=== PATIENT | female | born 1945 | race Caucasian/White ===

== ENCOUNTER → 2018-03-13 08:00 | Outpatient (CLI) | payer MEDICARE, OTHER, SELFPAY | PROVIDERS: Visit Provider Nurse Practitioner Gerontology | DX: N28.9 Disorder of kidney and ureter, unspecified (principal); N13.5 Crossing vessel and stricture of ureter without hydronephrosis; J44.9 Chronic obstructive pulmonary disease, unspecified; F17.210 Nicotine dependence, cigarettes, uncomplicated; I10 Essential (primary) hypertension | CPT/HCPCS: 81003; 99204 ==

== ENCOUNTER 2018-04-09 01:31 | Outpatient (CLI) | payer MEDICARE, OTHER, SELFPAY ==
[2018-04-09 10:58] LABS: Albumin 3.9 g/dL (3.4-5.0); Anion Gap 5.4 mmol/L (3-11); BUN 16 mg/dL (7-18); CO2 32.6 mmol/L (21.0-32.0); CREATININE 1.09 mg/dL (0.55-1.02); Calcium 9.9 mg/dL (8.5-10.1); Chloride 102 mmol/L (98-107); Estimated GFR 49.48 (mL/min/1.73m2); Glucose 108 mg/dL (70-100); PHOSPHORUS 3.1 mg/dL (2.6-4.7); Potassium 4.3 mmol/L (3.5-5.1); Sodium 140 mmol/L (136-145)
[2018-04-09 15:06] LABS: ALT 10 U/L (12-78); AST 20 U/L (15-37); Albumin 3.9 g/dL (3.4-5.0); Alkaline Phosphatase 79 U/L (46-116); Anion Gap 9.5 mmol/L (3-11); BUN 16 mg/dL (7-18); Bilirubin, Total 1.2 mg/dL (0.2-1.0); CO2 29.5 mmol/L (21.0-32.0); CREATININE 1.08 mg/dL (0.55-1.02); Calcium 9.6 mg/dL (8.5-10.1); Chloride 103 mmol/L (98-107); Estimated GFR 50.01 (mL/min/1.73m2); Glucose 111 mg/dL (70-100); Potassium 4.3 mmol/L (3.5-5.1); Sodium 142 mmol/L (136-145); Total Protein 7.2 g/dL (6.4-8.2)
== END 2018-04-09 01:51 ==
PROVIDERS: Visit Provider Nurse Practitioner Gerontology
DX: I10 Essential (primary) hypertension (principal); N28.9 Disorder of kidney and ureter, unspecified
CPT/HCPCS: 36415; 80053; 80069

== ENCOUNTER → 2018-04-16 10:42 | Outpatient (BNVA) | payer MEDICARE, OTHER, SELFPAY | PROVIDERS: Visit Provider Nurse Practitioner Gerontology | DX: N13.5 Crossing vessel and stricture of ureter without hydronephrosis (principal); J44.9 Chronic obstructive pulmonary disease, unspecified; F17.210 Nicotine dependence, cigarettes, uncomplicated; I10 Essential (primary) hypertension | CPT/HCPCS: 99213 ==

== ENCOUNTER 2018-08-17 01:12 | Outpatient (CLI) | payer MEDICARE, OTHER, SELFPAY ==
[2018-08-17 13:06] LABS: CREATININE 0.99 mg/dL (0.55-1.02); Estimated GFR 55.29 (mL/min/1.73m2)
== END 2018-08-17 01:32 ==
DX: R91.1 Solitary pulmonary nodule (principal); Z13.89 Encounter for screening for other disorder
CPT/HCPCS: 36415; 82565

== ENCOUNTER 2018-08-20 00:28 | Outpatient (CLI) | payer MEDICARE, OTHER, SELFPAY ==
[2018-08-20] MEDS: Omnipaque 350 MG/ML 100 ML BTL IJ (14:08)
--- NOTE | 2018-08-20 14:21 | DI.CT_ITS ---
SYMPTOM/DIAGNOSIS: F/U RT LUNG NODULE, R91.[address]: Comparison is made with exams from [id number]. A post contrast exam was performed. The two nodules at the left lung base measuring 5 and 10 mm. are unchanged over time. There has been interval increase in size of previously noted area of spiculation posteriorly in the right upper lobe. There is an adjacent area of spiculation which also appears to have increased in size. There is a new area of spiculation seen in the anterior lingula measuring 9 mm. in diameter. There are underlying emphysematous changes. No pleural or pericardial effusions are seen. There is a 12 mm. precarinal lymph node increasing slightly from the previous exam. There is minimal hilar sumit tissue. Large right renal cyst and small left renal cysts are noted. Patient is status post cholecystectomy. IMPRESSION: Interval increase in size of areas of spiculation at the posterior right upper lobe. New spiculated area in the anterior lingula. Two stable nodules are seen at the left lung base. Biopsy should be considered.
== END 2018-08-20 00:48 ==
DX: R91.1 Solitary pulmonary nodule (principal); R91.8 Other nonspecific abnormal finding of lung field
CPT/HCPCS: 71260; J3490

== ENCOUNTER 2018-10-05 11:13 | Inpatient (IN) | payer MEDICARE, OTHER, SELFPAY ==
[2018-10-05] VITALS (70 sets, daily range): BP systolic 94–131; BP diastolic 44–89; PULSE 108–157; RESP 2–47; TEMP 37.2–37.8; O2SAT 84–100
--- NOTE | 2018-10-05 11:26 | ED.GENADUL_ITS ---
Discharge Plan Disposition Patient Disposition: [facility] INPATIENT Discharge Details Chief Complaint: SOB Clinical Impression: Acute exacerbation of chronic obstructive pulmonary disease (COPD) Reason For Visit: COPD EXACERBATION Admit Date/Time: 10/05/18 17:50 Admit Provider: John Talbert Attending Provider: John Talbert Primary Care Provider: Sue Rodney ED Provider: Juvenal Robledo Discharge Data Discharge Date/Time-TO BE ENTERED AT DEPARTURE: 10/05/18 19:09 Medical Decision Making Medical Records 73-year-old female with a history of COPD, ongoing tobacco use, presents with 10+ days of cough, congestion, production of yellow sputum with increased difficulty breathing over 2 days time. She was initially seen in Dr. Alves's office and referred to the emergency department given her work of breathing and mild hypoxia of 87% on room air. Differential diagnosis includes viral syndrome, COPD exacerbation, pneumonia or bronchitis. She does appear mildly dehydrated She is given fluid bolus, inhaled duoneb, steroids, and referred for CXR, EKG and lab workup. Influenza testing negative. CXR: Underlying emphysematous changes. Right upper lobe mass as was demonstrated on prior chest CT. There is no evidence of pneumonia. Labs: Reveal normal white blood cell count of 5, hematocrit 43, platelets 122. Chemistries reveal a BUN of 23, creatinine 1.1, discrete anion gap of 15 with a bicarb of 23, Cl 97. Patient given DuoNeb updraft x4, parenteral steroids, 2 L of IV fluid. Observed over 4+ hrs. She has persistent resting tachycardia as well as room air hypoxia of 87%. Therefore, d-dimer added to labs and elevated just above age-adjusted cut off and patient referred for CT to rule out PE. CT no mild masses in left lower lobe which represent atelectasis or pneumonia. There are stable nodules. No evidence of PE. Patient's anion gap of 15 is begun to close on repeat laboratories, lactic acid level of 2.4. Blood cultures obtained, antibiotics initiated. Case discussed with Dr Talbert and patient to be admitted to the medicine service. Lab Data Lab results reviewed: Yes I reviewed the patient's lab results. Laboratory Results - last 24 hr 10/05/18 10/05/18 10/05/18 12:15 12:15 15:15 WBC 5.62 RBC 4.95 Hgb 14.3 Hct 43.0 MCV 86.9 MCH 28.9 MCHC 33.3 RDW 12.8 Plt Count 122 L MPV 10.9 Immature Gran % 0.4 Neutrophils % 76.3 Lymphocytes % 7.8 Monocytes % 14.9 Eosinophils % 0.2 Basophils % 0.4 Absolute Neutrophils 4.29 Absolute Lymphocytes 0.44 L Absolute Monocytes 0.84 H Absolute Eosinophils 0.01 Absolute Basophils 0.02 D-Dimer 736 H Sodium 136 Potassium 4.0 Chloride 97 L Carbon Dioxide 23.4 Anion Gap 15.6 H BUN 23 H Creatinine 1.14 H Estimated GFR/1.73 m2 46.99 Glucose 131 H Calcium 9.6 Magnesium 1.7 L Total Bilirubin 1.3 H AST 35 ALT 13 Alkaline Phosphatase 83 Troponin I < 0.02 Total Protein 7.7 Albumin 3.5 ECG Data Attestation: I personally reviewed and interpreted this ECG (s) as follows: Interpretation: Normal sinus tachycardia with a rate of 120, QRS is narrow, no ST segment elevation HPI General Mode of arrival: ambulatory . Date/Time Provider Initiated Documentation: 10/05/18 11:18 . Limitations to Documentation: no limitations . Information obtained by: patient . History of Present Illness 73 year old F presents to the emergency department with the chief complaint of Cough and shortness of breath, referred by Dr. Alves, described as moderate, Quality is described as constant, and is localized to the chest. Patient reports no radiation. Patient started experiencing this day(s) and it has been constant. No relieving factors improve symptom(s), Other factors that worsen symptoms (Smoking) . Patient notes cough and shortness of breath. Patient did receive the following treatments prior to arrival, other (Home inhalers) Related Data Home Medications Medication Instructions Recorded Confirmed acetaminophen [Tylenol Extra 1,000 mg PO PRN tab-cap 12/24/12 10/05/18 Strength] inhalational spacing device [Space #1 06/09/16 10/05/18 Chamber Plus] tiotropium bromide [Spiriva 18 mcg INHALATION DAILY #1 tab-cap 12/11/17 10/05/18 Handihaler] metoprolol succinate [Toprol Xl] 1.5 tab PO DAILY #135 tab-cap 12/22/17 10/05/18 hydrochlorothiazide 25 mg tablet 25 mg PO DAILY #90 tab-cap 06/28/18 10/05/18 clopidogrel 75 mg tablet 75 mg PO DAILY #90 tab-cap 08/23/18 10/05/18 albuterol sulfate HFA 90 2 puff INHALATION Q4H PRN #2 08/28/18 10/05/18 mcg/actuation aerosol inhaler inhaler fluticasone furoate-vilanterol 1 inh INHALATION DAILY 10/05/18 10/05/18 [Breo Ellipta] Previous Rx's Medication Instructions Recorded tiotropium bromide [Spiriva 18 mcg INHALATION DAILY #1 tab-cap 12/11/17 Handihaler] metoprolol succinate [Toprol Xl] 1.5 tab PO DAILY #135 tab-cap 12/22/17 hydrochlorothiazide 25 mg tablet 25 mg PO DAILY #90 tab-cap 06/28/18 clopidogrel 75 mg tablet 75 mg PO DAILY #90 tab-cap 08/23/18 albuterol sulfate HFA 90 2 puff INHALATION Q4H PRN #2 08/28/18 mcg/actuation aerosol inhaler inhaler Allergies Allergy/AdvReac Type Severity Reaction Status Date / Time Tetanus Vaccines and Toxoid Allergy Mild LOCAL Verified 10/05/18 10:26 SWELLING Review of Systems Review of Systems Patient's is sick with a pneumonia. She has otherwise recently been well. Denies chest pain. 8 systems reviewed and otherwise neg [facility] Medical History COPD (chronic obstructive pulmonary disease) Carotid artery stenosis Diverticulosis Essential hypertension Hyperlipidemia PVD (peripheral vascular disease) Tobacco dependence Surgical History Biopsy of breast Cholecystectomy (~01/2009) Colonoscopy - MAC (03/07/16) Hysterectomy, Laproscopic (~1974) Open Carpal Tunnel release Surgery excision CIS R buttock 2008 Family History Mother Neoplasm Sister Neoplasm Father No problems noted. Sister No problems noted. Sister No problems noted. Brother Neoplasm Daughter No problems noted. Daughter No problems noted. Son No problems noted. Brother No problems noted. Social History Smoking/Tobacco Use Status: Current every day Alcohol Intake: never Drug use: Never Substance use type: does not use Do you feel safe at home: Yes Do you feel safe in your relationship?: Yes Exam Narrative Exam Narrative: GEN: awake, alert, oriented 3. Pleasant, well groomed, interactive. Increased work of breathing HEAD: Normocephalic, atraumatic ENT: Mucous membranes moist, oropharynx unremarkable, External ear exam unremarkable EYES: PERRL, EOMI NECK: Full ROM, no THANIA, no menigismus CHEST/RESP: Nontender, bilateral diminished breath sounds with end expiratory wheeze CARDIOVASCULAR: Tachycardia, no murmur, rub kofi. 2+ Rad pulse bilateral ABDOMEN: Soft, nontender, no mass. +Bowel sounds EXT: Full ROM, no edema, no rash Neuro: Grossly normal neurologic exam, conversant, interactive. Psych: Speech fluent, thoughts congruent, affect normal
[2018-10-05 12:33] LABS: Abs Immature Grans 0.02 k/cumm (0.0-0.09); Absolute Basophil Count 0.02 k/cumm (0.0-0.2); Absolute Eosinophil Count 0.01 k/cumm (0.0-0.7); Absolute Lymphocyte Count 0.44 k/cumm (1.2-3.4); Absolute Monocyte Count 0.84 k/cumm (0.11-0.7); Absolute Neutrophil Count 4.29 k/cumm (1.2-6.7); Basophils % 0.4; Eosinophils % 0.2; HGB 14.3 g/dL (12.0-15.5); Immature Grans % 0.4; Lymphocytes % 7.8; Mean Corp. HGB Concentration 33.3 g/dL (32.0-36.0); Mean Corpuscular Hemoglobin 28.9 pg (27.0-33.0); Mean Corpuscular Volume 86.9 fL (80-95); Mean Platelet Volume 10.9 fL (8.0-11.0); Monocytes % 14.9; Neutrophils % 76.3; Platelet Count 122 x1000/uL (130-400); RBC 4.95 m/cumm (4.00-5.20); RBC Distribution Width 12.8 % (11.7-14.6); White Blood Cell Count 5.62 k/cumm (4.4-10.8)
[2018-10-05 12:46] LABS: ALT 13 U/L (12-78); AST 35 U/L (15-37); Albumin 3.5 g/dL (3.4-5.0); Alkaline Phosphatase 83 U/L (46-116); Anion Gap 15.6 mmol/L (3-11); BUN 23 mg/dL (7-18); Bilirubin, Total 1.3 mg/dL (0.2-1.0); CO2 23.4 mmol/L (21.0-32.0); CREATININE 1.14 mg/dL (0.55-1.02); Calcium 9.6 mg/dL (8.5-10.1); Chloride 97 mmol/L (98-107); Estimated GFR 46.99 (mL/min/1.73m2); Glucose 131 mg/dL (70-100); Magnesium 1.7 mg/dL (1.8-2.4); Sodium 136 mmol/L (136-145); Total Protein 7.7 g/dL (6.4-8.2)
[2018-10-05 12:49] LABS: Troponin I < 0.02 ng/mL (0.00-0.06)
[2018-10-05] MEDS: Lactated Ringers 1,000 ML 1000 ML IV ×2 (12:49→14:14)
[2018-10-05] MEDS: Albuterol/Ipratropium 3 ML UPD VIAL UPD ×5 (12:49→23:27)
--- NOTE | 2018-10-05 12:56 | DI.RAD_ITS ---
SYMPTOMS/DIAGNOSIS: SHORTNESS OF BREATH, COUGH PA AND LATERAL CHEST: Comparison is made with [id number]. The heart size is normal. There is calcification at the aortic arch. The lungs are somewhat hyperinflated. There are underlying emphysematous changes throughout. A mass is seen in the right upper lobe which measures 15 mm in diameter. IMPRESSION: Underlying emphysematous changes. Right upper lobe mass as was demonstrated on prior chest CT. There is no evidence of pneumonia.
[2018-10-05] MEDS: Benzonatate 100 MG CAP PO (15:21)
--- NOTE | 2018-10-05 15:23 | NUR.NOTE ---
Addendum entered by Mendez Garrison 10/05/18 18:55: room air trial performed on PT. O2 saturation dropped to 84 within 4 min Original Note: room air trial performed on PT. O2 saturation dropped to 14 within 4 min
[2018-10-05] MEDS: LORazepam 2 MG/ML VIAL 0.5 MG IVP (15:40)
[2018-10-05 15:57] LABS: D-Dimer 736 ng/mlFEU (<500)
--- NOTE | 2018-10-05 15:59 | DI.CT_ITS ---
SYMPTOMS/DIAGNOSIS: ELEVATED D-DIMER, COUGH, HYPOXIA CT ANGIOGRAPHY OF THE CHEST: CT angiography was performed with multi slice acquisition and multi planar and 3D reconstruction. Routine examination was performed. There is atherosclerosis of the thoracic aorta, but no aneurysmal dilatation or dissection is present. There is no evidence of a pulmonary embolus. The heart size is within normal limits. No significant pericardial effusion is seen. Coronary artery calcifications are present. No evidence of right ventricular dysfunction is seen. No significant thoracic adenopathy, pleural effusion or pneumothorax is identified. Emphysematous changes are seen in the lungs. There is a small infiltrate seen in the left lower lobe. The 9 mm nodule in the medial aspect of the right upper lobe appears stable (series 7 image 141). There is a pleural-based nodular opacity seen in the right upper lobe. This may represent atelectasis or pneumonia. Pulmonary nodule cannot be excluded. There is patient motion artifact, particularly notable in the lower chest and upper abdomen. The patient appears to be status post cholecystectomy. There are degenerative changes seen in the spine. IMPRESSION: 1. No evidence of a pulmonary embolus, thoracic aortic dissection or aneurysm. 2. Infiltrates seen in the left lower lobe, which may represent atelectasis or pneumonia. 3. Stable 9 mm nodule in the posterior right upper lobe. 4. Pleural-based opacity in the right upper lobe. This was also present on the prior examination from 08/20/18.
--- NOTE | 2018-10-05 17:09 | DI.VRAD_ITS ---
EXAM: CT Angiography Chest With Contrast EXAM DATE/TIME: 10/05/2018 4:00 PM CLINICAL HISTORY: 73 years old, female; Signs and symptoms; Cough; Patient HX: Cough, hypoxia, elevated ddimer TECHNIQUE: Axial computed tomographic angiography images of the chest with intravenous contrast using CT angiography protocol. Coronal and sagittal reformatted images were created and reviewed. MIP reconstructed images were created and reviewed. COMPARISON: CT Thorax^CHEST W ROUTINE (Adult) 08/20/2018 2:11 PM FINDINGS: Pulmonary arteries: Normal. No pulmonary emboli. Aorta: Normal. No aortic aneurysm. No aortic dissection. Lungs: Moderate panlobular emphysematous changes Mild opacities in the left lower lobe may represent atelectasis or pneumonia. Bronchiectasis Stable spiculated nodule in the posterior right upper lobe Pleural space: Normal. No pneumothorax. No pleural effusion. Heart: Normal. No cardiomegaly. No pericardial effusion. Liver: 9 mm pleural-based nodule in the posterior right upper lobe was present on the prior study. Gallbladder and bile ducts: Status post cholecystectomy Lymph nodes: Unremarkable. No enlarged lymph nodes. Bones/joints: Unremarkable. No acute fracture. Soft tissues: Unremarkable. IMPRESSION: 1. Mild opacities in the left lower lobe may represent atelectasis or pneumonia. 2. 9 mm pleural-based nodule in the posterior right upper lobe was present on the prior study. Dictated and Authenticated by: Sole Sotomayor MD. Ordering:SHERLEY Sanford MD
[2018-10-05] MEDS: Omnipaque 350 MG/ML 100 ML BTL IJ (17:12)
[2018-10-05 17:15] LABS: Lactate-non-spesis 2.4 mmol/l (0.6-1.4)
[2018-10-05 17:21] LABS: Anion Gap 8.9 mmol/L (3-11); BUN 21 mg/dL (7-18); CO2 29.1 mmol/L (21.0-32.0); CREATININE 1.11 mg/dL (0.55-1.02); Calcium 9.2 mg/dL (8.5-10.1); Chloride 99 mmol/L (98-107); Estimated GFR 48.46 (mL/min/1.73m2); Glucose 158 mg/dL (70-100); Potassium 3.6 mmol/L (3.5-5.1); Sodium 137 mmol/L (136-145)
[2018-10-05] MEDS: Normal Saline 1,000 ML 150 ML IV (17:44)
[2018-10-05] MEDS: PIPERACILLIN/TAZO 3.375 GM in Normal Saline 50 ML IVPB (19:04)
[2018-10-05] MEDS: Azithromycin 250 MG TAB 500 MG PO (19:04)
[2018-10-05] MEDS: guaiFENesin 600 MG TABCR 1200 MG PO (20:01)
[2018-10-05] MEDS: Benzonatate 200 MG CAP PO (20:01)
[2018-10-05] MEDS: Atorvastatin 20 MG TAB PO (20:02)
[2018-10-05] MEDS: Normal Saline Flush 10 ML SYR IVP ×3 (20:06→21:37)
[2018-10-05] MEDS: Albuterol 2.5 MG/3 ML INH SOLN VIAL UPD (20:06)
[2018-10-05] MEDS: Normal Saline 1,000 ML 100 ML IV ×2 (20:25→21:37)
--- NOTE | 2018-10-05 20:36 | HPE_ITS ---
Date of service: 10/05/18 Time of Service: 20:34 Assessment and Plan (1) Pneumonia: Current visit: No Status: Acute although this is considered community aquired pneumonia, in the setting of her COPD, I have broadened her antibiotic coverage to include Zosyn for better coverage of gram negatives, Pseudomonas (given her bronchiectasis) as well as Strep and Staph. Zithromax was added for coverage of atypicals. Patient should receive Prevnar 13 prior to discharge as she states that she has never been offered pneumonia vaccine. This should be followed in 1 year w/ pneumovax 23. I have added iv corticosteroids in addition to her DuoNeb treatments and ordered mucolytics and cough suppressants. (2) COPD exacerbation: Current visit: Yes Status: Acute as above plan for pneumonia. patient needs Prevnar 13 prior to discharge and follow up pneumovax in 1 year. further follow up of her lung noule should be closely monitored (3) Uvulitis: Current visit: Yes Status: Acute I have sent off throat culture for strep. I will give her viscous lidocaine and antacid combination to soothe her throat. She is not having any stridor or difficulty swallowing. (4) Pharyngitis: Current visit: Yes Status: Acute as above. History of Present Illness Chief Complaint: cough, dyspnea, hypoxemia Narrative: 73 yr old female smoker w/ PMH of COPD not on home oxygen, presented to her PCP office (Dr. Devon Alves) today w/ 10d hx of cough nonproductive, low grade fever, and increased dyspnea over past couple days. Her has also been ill w/ URI symptoms. She also has complained of nasal congestion, drainage and sore throat that preceded her dyspnea. In the office she was noted to be hypoxemic w/ SPO2 of 87% and tachypneic therefore she was referred to the emergency room where Dr. Juvenal Robledo evaluated her w/ CXR, labs including influenza screen which was negative, CBC, CMP, d-dimer, troponin, CT scan of the chest to rule out PE. CBC was unremarkable (normal WBC 5620, no anemia), CMP was remarkable for mild azotemia w/ BUN 23, creatinine 1.14 and mild anion gap of 15.6. Lactate was added later and found to be elevated at 2.4. Troponin was normal and her d-dimer was mildly elevated at 736 (just above her age cutoff for normal). CXR demonstrated emphysema and RUL mass 15 mm in diameter similar to that seen on prior chest CT. CTA of chest failed to show any PE but demonstrated panlobular emphysema, bronchiectasis and stable spiculated RUL 9 mm pleural based nodule (stable when compared to CT dated 08/20/2018) and mild opacities in the LLL international representative of pneumonia vs. atelectasis. Treatment in the ER consisted of 4 DuoNeb treatments, and initiation of parenteral antibiotics (Zosyn) and oral azithromycin. Patient is now admitted for treatment of CAP and COPD exacerbation. Review of Systems Constitutional Denies chills, Reports fever(s) and Reports poor appetite Eyes Reports system reviewed and no additional complaints, except as [facility] E[facility] Reports nasal congestion, Reports nasal discharge and Reports sore throat Cardiovascular Denies chest pain, Denies leg edema, Reports dyspnea and Reports dyspnea on exertion Respiratory Reports chest congestion, Reports cough, Denies hemoptysis, Denies excessive phlegm production, Reports dyspnea, Reports dyspnea on exertion and Reports wheezing Gastrointestinal Reports system reviewed and no additional complaints, except as docu Genitourinary Reports system reviewed and no additional complaints, except as docu Musculoskeletal Reports system reviewed and no additional complaints, except as [facility] Integumentary/Breasts Reports system reviewed and no additional complaints, except as [facility] Neurologic Reports system reviewed and no additional complaints, except as docu Endocrine Reports system reviewed and no additional complaints, except as docu Hematologic/Lymphatic Reports system reviewed and no additional complaints, except as docu Allergic/Immunologic Reports wheezing PFSH Medical History Tubular adenoma (Chronic 03/07/16) Smoker (Chronic) Peripheral vascular disease (Chronic) Nodule of right lung (Chronic 07/11/16) Impaired fasting glucose (Chronic) Hyperlipidemia (Chronic) Essential hypertension (Chronic 06/24/13) Diverticulosis of colon without diverticulitis (Chronic) Chronic obstructive lung disease (Chronic) Carpal tunnel syndrome (Chronic) Carotid artery stenosis (Chronic) 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) Abnormal weight loss (Chronic 04/18/12) UPJ obstruction, acquired (Chronic) Fatigue (Resolved 06/02/16) Muscle spasms of neck (Resolved 01/29/18) Polyp of colon (Resolved) COPD (chronic obstructive pulmonary disease) Carotid artery stenosis Diverticulosis Essential hypertension Hyperlipidemia PVD (peripheral vascular disease) Tobacco dependence Surgical History History of lung biopsy (Acute ~2015) Biopsy of breast Cholecystectomy (~01/2009) Colonoscopy - MAC (03/07/16) Hysterectomy, Laproscopic (~1974) Open Carpal Tunnel release Surgery excision CIS R buttock 2008 Family History Mother Neoplasm Sister Neoplasm Father No problems noted. Sister No problems noted. Sister No problems noted. Brother Neoplasm Daughter No problems noted. Daughter No problems noted. Son No problems noted. Brother No problems noted. Social History Smoking/Tobacco Use Status: Current every day Alcohol Intake: never Drug use: Never Substance use type: does not use Do you feel safe at home: Yes Do you feel safe in your relationship?: Yes Meds Home Medications Medication Instructions Recorded Confirmed Type acetaminophen [Tylenol Extra 1,000 mg PO PRN tab-cap 12/24/12 10/05/18 History Strength] inhalational spacing device [Space #1 06/09/16 10/05/18 History Chamber Plus] tiotropium bromide [Spiriva 18 mcg INHALATION DAILY #1 tab-cap 12/11/17 10/05/18 Rx Handihaler] Atorvastatin Calcium 20 mg PO DAILY #90 tab-cap 12/22/17 10/05/18 Clinic metoprolol succinate [Toprol Xl] 1.5 tab PO DAILY #135 tab-cap 12/22/17 10/05/18 Rx hydrochlorothiazide 25 mg tablet 25 mg PO DAILY #90 tab-cap 06/28/18 10/05/18 Rx clopidogrel 75 mg tablet 75 mg PO DAILY #90 tab-cap 08/23/18 10/05/18 Rx albuterol sulfate HFA 90 2 puff INHALATION Q4H PRN #2 08/28/18 10/05/18 Rx mcg/actuation aerosol inhaler inhaler fluticasone furoate-vilanterol 1 inh INHALATION DAILY 10/05/18 10/05/18 History [Adonis Barbour] Allergies Allergy/AdvReac Type Severity Reaction Status Date / Time Tetanus Vaccines and Toxoid Allergy Mild LOCAL Verified 10/05/18 10:26 SWELLING Exam Const General: cooperative, acute distress mild (secondary to dyspnea with prolonged conversation), not diaphoretic and ill appearing acutely Nutritional Appearance: average body habitus Orientation: alert, awake and oriented x3 [facility] Head: normal to inspection, no palpable skull fracture, normocephalic and atraumatic Ears: hearing grossly normal bilaterally and EAC abnormal excessive cerumen bilaterally General nose exam: external nose normal, nares normal and nasal mucous membranes and turbinates normal Face and sinus: normal facial exam and face symmetric Throat: uvula midline, posterior oropharynx abnormal edema and erythema; no exudates and uvular edema (erythematous and w/ some bleeding; throat swab taken for Strep) Other: Mallampati class 2 Eyes General: appearance normal, both eyes and all related structures Alignment and Position: alignment normal Periorbital: periorbital findings normal Eyelids: eyelids normal Conjunctivae: conjunctivae normal Sclera: sclerae normal Cornea: corneas normal Neck Neck: normal visual inspection, full ROM, no lymphadenopathy, trachea midline, supple and no JVD Carotids: normal carotid upstroke Lymphatic: no lymphadenopathy noted Resp Effort & Inspection: able to speak in complete sentences, cough Quality of cough: wet and tachypneic Auscultation: bronchovesicular breath sounds bilaterally and wheezes scattered wheezes Cardio Jugular venous pressure: no JVD Palpation: normal PMI Rate: tachycardic Rhythm: regular rhythm Heart Sounds: S1 normal, S2 normal, normal, physiologic split S2 and no murmurs Pulses: normal peripheral pulses GI Inspection: normal to inspection Palpation: soft, no hepatosplenomegaly and nontender Percussion: normal to percussion Auscultation: normal bowel sounds General: No CVA tenderness Back/Spine/Pelvis Back: no CVA tenderness Cervical Spine: normal cervical lordosis Thoracic/Lumbar Spine: thoracic and lumbar spine normal to inspection Skin General skin exam: no rashes or lesions noted, elasticity normal and turgor normal Neuro General: alert, awake, oriented x3, moves all extremities and no focal motor deficits Cognition: normal cognition Speech: speech normal Motor: muscle tone normal throughout, strength 5/5 throughout and no movement abnormalities noted Sensory Exam: no sensory deficits noted Extrem General: normal to inspection, full ROM, normal capillary refill, no joint enlargement, no clubbing, cyanosis or edema, no pedal edema and no calf tenderness Psych Appearance: grossly normal and well kempt Mental Status: mental status grossly normal Speech and Movement: speech and movement normal Mood: congruent mood Affect: normal affect Attitude: cooperative Thought Process: normal Thought Content: normal Insight: insight good Judgment: judgment good Results Imaging Chest x-ray: report reviewed (PA AND LATERAL CHEST: Comparison is made with [id number]. The heart size is normal. There is calcification at the aortic arch. The lungs are somewhat hyperinflated. There are underlying emphysematous changes throughout. A mass is seen in the right upper lobe which measures 15 mm in diameter. IMPRES) CT scan - chest: report reviewed (COMPARISON: CT Thorax^CHEST W ROUTINE (Adult) 08/20/2018 2:11 PM FINDINGS: Pulmonary arteries: Normal. No pulmonary emboli. Aorta: Normal. No aortic aneurysm. No aortic dissection. Lungs: Moderate panlobular emphysematous changes Mild opacities in the left lower lobe may represent atelect) Labs : 10/05/18 12:15 10/05/18 17:00 Laboratory Results - last 24 hr 10/05/18 10/05/18 10/05/18 12:15 12:15 15:15 WBC 5.62 RBC 4.95 Hgb 14.3 Hct 43.0 MCV 86.9 MCH 28.9 MCHC 33.3 RDW 12.8 Plt Count 122 L MPV 10.9 Immature Gran % 0.4 Neutrophils % 76.3 Lymphocytes % 7.8 Monocytes % 14.9 Eosinophils % 0.2 Basophils % 0.4 Absolute Neutrophils 4.29 Absolute Lymphocytes 0.44 L Absolute Monocytes 0.84 H Absolute Eosinophils 0.01 Absolute Basophils 0.02 D-Dimer 736 H Sodium 136 Potassium 4.0 Chloride 97 L Carbon Dioxide 23.4 Anion Gap 15.6 H BUN 23 H Creatinine 1.14 H Estimated GFR/1.73 m2 46.99 Glucose 131 H Lactate Calcium 9.6 Magnesium 1.7 L Total Bilirubin 1.3 H AST 35 ALT 13 Alkaline Phosphatase 83 Troponin I < 0.02 Total Protein 7.7 Albumin 3.5 10/05/18 10/05/18 17:00 17:00 WBC RBC Hgb Hct MCV MCH MCHC RDW Plt Count MPV Immature Gran % Neutrophils % Lymphocytes % Monocytes % Eosinophils % Basophils % Absolute Neutrophils Absolute Lymphocytes Absolute Monocytes Absolute Eosinophils Absolute Basophils D-Dimer Sodium 137 Potassium 3.6 Chloride 99 Carbon Dioxide 29.1 Anion Gap 8.9 BUN 21 H Creatinine 1.11 H Estimated GFR/1.73 m2 48.46 Glucose 158 H Lactate 2.4 H Calcium 9.2 Magnesium Total Bilirubin AST ALT Alkaline Phosphatase Troponin I Total Protein Albumin Last Vital Signs Temp 37.3 C 10/05/18 20:09 Pulse 133 H 10/05/18 20:09 Resp 28 H 10/05/18 20:09 BP 131/61 10/05/18 20:09 Pulse Ox 88 L 10/05/18 20:09
[2018-10-05] MEDS: Hydrocortisone SOD SUC. 100 MG VIAL IVP (21:46)
[2018-10-05] MEDS: Metoprolol CR 25 MG TABCR 37.5 MG PO (22:26)
[2018-10-05] MEDS: Hydrocortisone SOD SUC. 100 MG VIAL 50 MG IVP (23:27)
[2018-10-06] VITALS (18 sets, daily range): BP systolic 98–131; BP diastolic 59–69; PULSE 86–141; RESP 4–20; TEMP 36.5–37.7; O2SAT 91–95
[2018-10-06] MEDS: PIPERACILLIN/TAZO 4.5 GM in Normal Saline 100 ML IVPB ×3 (01:53→17:51)
[2018-10-06] MEDS: Hydrocortisone SOD SUC. 100 MG VIAL 50 MG IVP (06:14)
[2018-10-06] MEDS: Albuterol/Ipratropium 3 ML UPD VIAL UPD ×4 (06:14→21:06)
[2018-10-06] MEDS: Azithromycin 250 MG TAB PO (07:54)
[2018-10-06] MEDS: Metoprolol CR 25 MG TABCR 37.5 MG PO (07:54)
[2018-10-06] MEDS: guaiFENesin 600 MG TABCR 1200 MG PO ×2 (07:55→20:08)
[2018-10-06] MEDS: Benzonatate 200 MG CAP PO ×3 (07:55→20:08)
[2018-10-06] MEDS: Clopidogrel 75 MG TAB PO (07:55)
[2018-10-06 08:05] LABS: Abs Immature Grans 0.01 k/cumm (0.0-0.09); Absolute Basophil Count 0.01 k/cumm (0.0-0.2); Absolute Eosinophil Count 0.01 k/cumm (0.0-0.7); Absolute Lymphocyte Count 0.25 k/cumm (1.2-3.4); Absolute Monocyte Count 0.21 k/cumm (0.11-0.7); Basophils % 0.2; Eosinophils % 0.2; HCT 36.9 % (36.0-46.0); HGB 12.1 g/dL (12.0-15.5); Immature Grans % 0.2; Lymphocytes % 5.7; Mean Corp. HGB Concentration 32.8 g/dL (32.0-36.0); Mean Corpuscular Volume 88.5 fL (80-95); Mean Platelet Volume 10.9 fL (8.0-11.0); Monocytes % 4.8; Neutrophils % 88.9; Platelet Count 135 x1000/uL (130-400); RBC 4.17 m/cumm (4.00-5.20); RBC Distribution Width 12.6 % (11.7-14.6); White Blood Cell Count 4.35 k/cumm (4.4-10.8)
[2018-10-06 08:06] LABS: Absolute Neutrophil Count 3.87 k/cumm (1.2-6.7)
[2018-10-06 08:15] LABS: Anion Gap 9.7 mmol/L (3-11); BUN 18 mg/dL (7-18); CO2 27.3 mmol/L (21.0-32.0); CREATININE 0.88 mg/dL (0.55-1.02); Chloride 103 mmol/L (98-107); Glucose 142 mg/dL (70-100); Magnesium 1.8 mg/dL (1.8-2.4); Potassium 3.4 mmol/L (3.5-5.1); Sodium 140 mmol/L (136-145)
[2018-10-06] MEDS: Potassium Chloride 20 MEQ TABCR 40 MEQ PO (11:15)
[2018-10-06] MEDS: Magnesium Oxide 400 MG TAB PO (11:15)
[2018-10-06] MEDS: methylPREDNISolone SUCC 125 MG VIAL 60 MG IVP (11:15)
[2018-10-06] MEDS: Normal Saline 1,000 ML 100 ML IV (11:26)
--- NOTE | 2018-10-06 15:22 | W.PM.PROGNOT ---
Documented by User: Es Terry NP 10/06/18 15:53 Date of Service Date of service: 10/06/18 Time of Service: 15:38 Assessment and Plan (1) Pneumonia: Start date: 10/06/18 Start time: 15:24 Current visit: No Status: Acute CT scan revealing mild opacities in the left lower lobe may represent atelectasis or pneumonia. Day 1 of zosyn and Zithromax, increased solumedrol to 80 mg q 8 hours as patient was having worsening SOB while at rest and ambulating. IVF dcd continue duonebs, started on symbicort, continue tessalon pearles, mcuinex, she did receive prevanar injection. (2) COPD exacerbation: Start date: 10/06/18 Start time: 15:31 Current visit: Yes Status: Acute In the setting of pneumonia, see above. requiring 2 L at this time. (3) Pharyngitis: Start date: 10/06/18 Start time: 15:24 Current visit: Yes Status: Acute throat cx sent to r/o strept throat, culture pending. Pt does have petechia to uvula with inflammation and pain. Also started on cetirizine, could be postnasal drip. No lymphadenopathy (4) Uvulitis: Start date: 10/06/18 Start time: 15:33 Current visit: Yes Status: Acute see above (5) Smoker: Start date: 10/06/18 Start time: 15:33 Current visit: No Status: Chronic Current smoker, show interest in quitting counseled on cessation, will continue to address. Nicotine patch for replacement. (6) Hyperlipidemia: Start date: 10/06/18 Start time: 15:34 Current visit: No Status: Chronic Currently on lipitor continue home dose. (7) Essential hypertension: Start date: 10/06/18 Start time: 15:35 Current visit: No Status: Chronic controlled at this time. Continue metoprolol CR (8) Nasal bleeding: Start date: 10/06/18 Start time: 15:36 Current visit: Yes Status: Acute Nasal turbinates are swollen and friable. Humidified oxygen on, saline nasal spray and cetirizine ordered. (9) DVT prophylaxis: Start date: 10/06/18 Start time: 15:37 Current visit: Yes Status: Acute Currently on plavix continue dose along with TEDS and SCDs Subjective Patient reports: no new complaints Interval history since last seen: Today Mrs. Reynolds is feeling better but appears to still be SOB. She is tachypnic when speaking. Requiring 2 L at this time, she non oxygen dependent COPD. She did become SOB with excretion moving from the chair to bed. She does still smoke; she was counseled on cessation and knows she needs to quite. She feels that her next step will be . Pulmonary rehab was brought up and along with smoking cessation, this made her feel better . Her steroid dose was changed to solu-medrol and increased to 80 mg q 8 hours in the presence of no symptom relieve. She is on day one of zosyn and zithromax; her fluids have been dcd in the presence of SOB that is not resolving, she did not have crackles or swelling so unlikely CHF. Her uvula was swollen with petechiae a throat culture was sent, results are pending, she was also having some bleeding when she blew her nose, her nasal turbinates do appear swollen and friable, saline nasal spray was ordered and cetirizine as well, she is on humidified oxygen. Exam Const General: cooperative and ill appearing [facility] Head: normal to inspection General nose exam: mucous membranes and turbinates abnormal (friable) boggy and erythematous Throat: uvula laterally displaced and uvular edema (petechia) Eyes General: appearance normal, both eyes and all related structures Neck Lymphatic: no lymphadenopathy noted and no lymphedema noted Chest Chest: normal inspection of the chest Resp Effort & Inspection: abnormal respiratory pattern (SOB with talking), audible wheezes, cough and tachypneic Auscultation: rhonchi and wheezes Cardio Rate: regular rate Rhythm: regular rhythm Heart Sounds: S1 normal and S2 normal GI Inspection: normal to inspection Palpation: soft and no hepatosplenomegaly Skin General skin exam: no rashes or lesions noted Neuro General: alert, awake and oriented x3 Extrem General: normal to inspection Objective Objective Clinical Data: Abnormal lab results 10/05/18 10/05/18 10/05/18 Range/Units 15:15 17:00 17:00 WBC (4.4-10.8) k/cumm Absolute Lymphocytes (1.2-3.4) k/cumm D-Dimer 736 H (<500) ng/mlFEU Potassium (3.5-5.1) mmol/L BUN 21 H (7-18) mg/dL Creatinine 1.11 H (0.55-1.02) mg/dL Glucose 158 H (70-100) mg/dL Lactate 2.4 H (0.6-1.4) mmol/l 10/06/18 10/06/18 Range/Units 07:48 07:48 WBC 4.35 L (4.4-10.8) k/cumm Absolute Lymphocytes 0.25 L (1.2-3.4) k/cumm D-Dimer (<500) ng/mlFEU Potassium 3.4 L (3.5-5.1) mmol/L BUN (7-18) mg/dL Creatinine (0.55-1.02) mg/dL Glucose 142 H (70-100) mg/dL Lactate (0.6-1.4) mmol/l Vital Signs Temperature 36.5 C 10/06/18 11:43 Temperature Source Tympanic 10/06/18 11:43 Pulse 86 10/06/18 11:43 Pulse Rhythm Regular 10/06/18 08:06 Pulse 121 H 10/05/18 18:40 Respiratory Rate 20 10/06/18 11:43 Respiratory Effort 10/06/18 08:06 Respiratory Depth Shallow 10/06/18 08:06 Respiratory Pattern Normal 10/06/18 08:06 Blood Pressure 104/66 10/06/18 11:43 Blood Pressure Mean 94 10/05/18 16:01 Blood Pressure Position Supine 10/05/18 11:38 Pulse Oximetry 94 L 10/06/18 14:28 Oxygen Delivery Method Nasal Cannula 10/06/18 14:28 Oxygen Flow Rate 3 10/06/18 14:28 Pain Level 0 10/06/18 07:45 Comment 10/06/18 03:25 Intake & Output 10/05/18 10/06/18 10/06/18 23:59 11:59 23:59 Intake Total 2690 / 2690 1560 / 1680 120 / 1680 Output Total 350 / 350 450 / 450 Balance 2340 / 2340 1110 / 1230 120 / 1230 Weight 52.3 kg Intake: IV 2690 / 2690 1100 / 1100 Oral 460 / 580 120 / 580 Output: Urine 350 / 350 450 / 450 Other: Urine Color Yellow Yellow Urine Appearance Clear Clear Voiding Methods Bedside Commode Bedside Commode Incontinent Incontinent Laboratory Results WBC 4.35 k/cumm (4.4-10.8) L 10/06/18 07:48 RBC 4.17 m/cumm (4.00-5.20) 10/06/18 07:48 Hgb 12.1 g/dL (12.0-15.5) D 10/06/18 07:48 Hct 36.9 % (36.0-46.0) 10/06/18 07:48 MCV 88.5 fL (80-95) 10/06/18 07:48 MCH 29.0 pg (27.0-33.0) 10/06/18 07:48 MCHC 32.8 g/dL (32.0-36.0) 10/06/18 07:48 RDW 12.6 % (11.7-14.6) 10/06/18 07:48 Plt Count 135 x1000/uL (130-400) 10/06/18 07:48 MPV 10.9 fL (8.0-11.0) 10/06/18 07:48 Immature Gran % 0.2 10/06/18 07:48 Neutrophils % 88.9 10/06/18 07:48 Lymphocytes % 5.7 10/06/18 07:48 Monocytes % 4.8 10/06/18 07:48 Eosinophils % 0.2 10/06/18 07:48 Basophils % 0.2 10/06/18 07:48 Absolute Neutrophils 3.87 k/cumm (1.2-6.7) 10/06/18 07:48 Absolute Lymphocytes 0.25 k/cumm (1.2-3.4) L 10/06/18 07:48 Absolute Monocytes 0.21 k/cumm (0.11-0.7) 10/06/18 07:48 Absolute Eosinophils 0.01 k/cumm (0.0-0.7) 10/06/18 07:48 Absolute Basophils 0.01 k/cumm (0.0-0.2) 10/06/18 07:48 D-Dimer 736 ng/mlFEU (<500) H 10/05/18 15:15 Sodium 140 mmol/L (136-145) 10/06/18 07:48 Potassium 3.4 mmol/L (3.5-5.1) L 10/06/18 07:48 Chloride 103 mmol/L (98-107) 10/06/18 07:48 Carbon Dioxide 27.3 mmol/L (21.0-32.0) 10/06/18 07:48 Anion Gap 9.7 mmol/L (3-11) 10/06/18 07:48 BUN 18 mg/dL (7-18) 10/06/18 07:48 Creatinine 0.88 mg/dL (0.55-1.02) 10/06/18 07:48 Estimated GFR/1.73 m2 >= 60.00 (mL/min/1.73m2) 10/06/18 07:48 Glucose 142 mg/dL (70-100) H 10/06/18 07:48 Lactate 2.4 mmol/l (0.6-1.4) H 10/05/18 17:00 Calcium 9.0 mg/dL (8.5-10.1) 10/06/18 07:48 Magnesium 1.8 mg/dL (1.8-2.4) 10/06/18 07:48 Total Bilirubin 1.3 mg/dL (0.2-1.0) H 10/05/18 12:15 AST 35 U/L (15-37) 10/05/18 12:15 ALT 13 U/L (12-78) 10/05/18 12:15 Alkaline Phosphatase 83 U/L (46-116) 10/05/18 12:15 Troponin I < 0.02 ng/mL (0.00-0.06) 10/05/18 12:15 Total Protein 7.7 g/dL (6.4-8.2) 10/05/18 12:15 Albumin 3.5 g/dL (3.4-5.0) 10/05/18 12:15 Documented by User: Oscar Almanzar MD 10/09/18 18:09
[2018-10-06] MEDS: Albuterol 2.5 MG/3 ML INH SOLN VIAL UPD (16:07)
[2018-10-06 16:38] LABS: Lactate-non-spesis 1.3 mmol/l (0.6-1.4)
--- NOTE | 2018-10-06 17:12 | PDOC.CMIN ---
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 Chronic obstructive lung disease (Chronic), Carpal tunnel syndrome (Chronic). 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 Tobacco dependence. Surgical: History of lung biopsy (Acute ~2015), Biopsy of breast, Cholecystectomy (~01/2009), Colonoscopy - MAC (03/07/16). Hysterectomy, Laproscopic (~1974), Open Carpal Tunnel release Surgery,. excision CIS R buttock 2008 PREVIOUS FUNCTIONAL STATUS/SOCIAL/FAMILY SUPPORTS:: Lives with her , Eloy, at their home in [place]. CURRENT FUNCTIONAL STATUS:: Lying in bed. Eloy is at her bedside. ADVANCE DIRECTIVES:: None on file Has patient been provided with information about the portal?: No Did the patient sign up for the portal?: No CODE STATUS:: Full Code INSURANCE COVERAGE / FINANCIAL ISSUES:: Commercial. Medicare CURRENT HOME/COMMUNITY SERVICES/EQUIPMENT:: None at present PRIMARY CARE PHYSICIAN:: Keya rosario?: Sue Rodney NP POTENTIAL DISCHARGE NEEDS:: Follow up appt. with PCP PATIENT/FAMILY EDUCATION NEEDS:: Discharge Instructions ANTICIPATED BARRIERS TO DISCHARGE:: None identified TRANSPORTATION:: Family PLAN:: Lianna will return home when medically cleared for discharge. No services needed. Family will transport.
[2018-10-06] MEDS: methylPREDNISolone SUCC 125 MG VIAL 80 MG IVP (20:08)
[2018-10-06] MEDS: Atorvastatin 20 MG TAB PO (20:08)
[2018-10-07] VITALS (19 sets, daily range): BP systolic 113–159; BP diastolic 62–89; PULSE 89–126; RESP 4–23; TEMP 36.3–37.4; O2SAT 86–99
[2018-10-07] MEDS: Levalbuterol 1.25 MG/3 ML UPD VIAL UPD (00:13)
[2018-10-07] MEDS: Metoprolol CR 25 MG TABCR 37.5 MG PO (00:56)
[2018-10-07] MEDS: Normal Saline Flush 10 ML SYR IVP ×4 (01:34→17:28)
[2018-10-07] MEDS: PIPERACILLIN/TAZO 4.5 GM in Normal Saline 100 ML IVPB ×3 (01:34→17:29)
[2018-10-07] MEDS: methylPREDNISolone SUCC 125 MG VIAL 80 MG IVP (04:08)
[2018-10-07] MEDS: Albuterol/Ipratropium 3 ML UPD VIAL UPD ×6 (05:00→23:47)
[2018-10-07 07:25] LABS: Abs Immature Grans 0.02 k/cumm (0.0-0.09); HCT 37.4 % (36.0-46.0); HGB 12.3 g/dL (12.0-15.5); Mean Corp. HGB Concentration 32.9 g/dL (32.0-36.0); Mean Corpuscular Hemoglobin 29.1 pg (27.0-33.0); Mean Corpuscular Volume 88.6 fL (80-95); Mean Platelet Volume 11.1 fL (8.0-11.0); RBC 4.22 m/cumm (4.00-5.20); RBC Distribution Width 12.7 % (11.7-14.6); White Blood Cell Count 5.54 k/cumm (4.4-10.8)
[2018-10-07 07:42] LABS: BUN 18 mg/dL (7-18); CREATININE 0.85 mg/dL (0.55-1.02); Calcium 9.2 mg/dL (8.5-10.1); Chloride 105 mmol/L (98-107); Glucose 153 mg/dL (70-100); Potassium 3.3 mmol/L (3.5-5.1); Sodium 141 mmol/L (136-145)
[2018-10-07 08:00] LABS: Absolute Lymphocyte Count 0.33 k/cumm (1.2-3.4); Atypical Lymphocytes % 2; Platelet Count 154 x1000/uL (130-400)
[2018-10-07 08:01] LABS: Absolute Monocyte Count 0.11 k/cumm (0.11-0.7); Diff Comment Manual Differential; Polychromasia Present
[2018-10-07] MEDS: Azithromycin 250 MG TAB PO (08:29)
[2018-10-07] MEDS: Benzonatate 200 MG CAP PO ×3 (08:29→20:42)
[2018-10-07] MEDS: Cetirizine 10 MG TAB PO (08:29)
[2018-10-07] MEDS: guaiFENesin 600 MG TABCR 1200 MG PO ×2 (08:29→20:42)
[2018-10-07] MEDS: Clopidogrel 75 MG TAB PO (08:29)
[2018-10-07] MEDS: Metoprolol 12.5 MG TAB PO ×3 (08:53→23:46)
[2018-10-07] MEDS: Pantoprazole 40 MG TABCR PO (08:54)
[2018-10-07 09:15] LABS: Troponin I 1.75 ng/mL (0.00-0.06)
[2018-10-07] MEDS: Atorvastatin 40 MG TAB PO (10:01)
[2018-10-07] MEDS: Aspirin 325 MG TAB PO (10:01)
[2018-10-07 10:03] LABS: PTT Activated 24.1 sec (21.0-31.4)
--- NOTE | 2018-10-07 10:05 | W.PM.PROGNOT ---
Documented by User: Es Terry NP 10/07/18 13:28 Date of Service Date of service: 10/07/18 Time of Service: 10:33 Assessment and Plan (1) Chest pain: Start date: 10/07/18 Start time: 10:06 Current visit: Yes Status: Acute Pt had a bout of CP last night, with a tachy rate of up to 140 per nursing. This am patient denies CP and appears calm, not diaphoretic, EKG was done with SR RRR at 100, Troponin ordered was 1.75, serial troponins ordered. heparin drip started, given 325 ASA with 81 mg daily dose, already on statin increased to 80 mg daily, and nitro for CP. At this time she is stable enough to stay on the floor with teley, if she declines she will be moved to the ICU with possible transfer. (2) NSTEMI (non-ST elevated myocardial infarction): Start date: 10/07/18 Start time: 10:14 Current visit: Yes Status: Acute in the setting of CP with elevated troponin, see above (3) Pneumonia: Current visit: No Status: Acute continue zosyn and azithromycin day 2. Lungs sound tight with expiratory wheezing, in the setting of NSTEMI, steroids decreased to 40 mg q 8 and xoponex started, albuterol dcd (4) COPD exacerbation: Current visit: Yes Status: Acute In the setting of pneumonia, see above. requiring 2 L at this time. (5) Pharyngitis: Current visit: Yes Status: Acute throat cx sent negative for strep, continue citirizine (6) Uvulitis: Current visit: Yes Status: Acute see above (7) Smoker: Current visit: No Status: Chronic Current smoker, show interest in quitting counseled on cessation, will continue to address. Nicotine patch for replacement. (8) Hyperlipidemia: Current visit: No Status: Chronic dose increased in the presence of NSTEMI (9) Essential hypertension: Current visit: No Status: Chronic controlled at this time. Continue metoprolol (10) Nasal bleeding: Current visit: Yes Status: Acute Humidified oxygen on, saline nasal spray and cetirizine ordered. 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 [facility] manager cargo consulted, if troponin continues to elevate consider transfer. At this time patient is stable enough to stay on the floor with telemetry, if she declines she will be moved to ICU with possible transfer. Exam Const General: cooperative and ill appearing [facility] Head: normal to inspection General nose exam: mucous membranes and turbinates abnormal (friable) boggy and erythematous Throat: uvula laterally displaced and uvular edema (petechia) Eyes General: appearance normal, both eyes and all related structures Neck Lymphatic: no lymphadenopathy noted and no lymphedema noted Chest Chest: normal inspection of the chest Resp Effort & Inspection: abnormal respiratory pattern (SOB with talking), cough and tachypneic Auscultation: rhonchi and wheezes (wheezes on expiratory) Other: sounds tight Cardio Rate: regular rate Rhythm: regular rhythm Heart Sounds: S1 normal and S2 normal GI Inspection: normal to inspection Palpation: soft and no hepatosplenomegaly Skin General skin exam: no rashes or lesions noted Neuro General: alert, awake and oriented x3 Extrem General: normal to inspection Objective Objective Clinical Data: Abnormal lab results 10/07/18 10/07/18 Range/Units 06:42 06:42 MPV 11.1 H (8.0-11.0) fL Absolute Lymphocytes 0.33 L (1.2-3.4) k/cumm Potassium 3.3 L (3.5-5.1) mmol/L Glucose 153 H (70-100) mg/dL Troponin I 1.75 H* (0.00-0.06) ng/mL Vital Signs Temperature 36.3 C L 10/07/18 07:40 Temperature Source Tympanic 10/07/18 07:40 Pulse 105 H 10/07/18 08:54 Pulse Rhythm Regular 10/07/18 02:49 Pulse 121 H 10/05/18 18:40 Respiratory Rate 22 10/07/18 07:40 Respiratory Effort Incrsd Work of Breathing 10/07/18 02:49 Respiratory Depth Normal 10/07/18 02:49 Respiratory Pattern Tachypnea 10/07/18 02:49 Blood Pressure 138/74 10/07/18 08:54 Blood Pressure Mean 94 10/05/18 16:01 Blood Pressure Position Supine 10/05/18 11:38 Pulse Oximetry 97 10/07/18 09:43 Oxygen Delivery Method Nasal Cannula 10/07/18 09:43 Oxygen Flow Rate 2 10/07/18 09:43 Pain Level 9 10/07/18 00:10 Comment 10/07/18 00:10 Intake & Output 10/06/18 10/06/18 10/07/18 11:59 23:59 11:59 Intake Total 1560 / 2465.000 905.000 / 2465.000 100 / 100 Output Total 450 / 850 400 / 850 Balance 1110 / 1615.000 505.000 / 1615.000 100 / 100 Intake: IV 1100 / 1885.000 785.000 / 1885.000 100 / 100 Oral 460 / 580 120 / 580 Output: Urine 450 / 850 400 / 850 Other: Urine Color Yellow Yellow Urine Appearance Clear Cloudy Urine Odor Normal Voiding Methods Bedside Commode Incontinent Laboratory Results WBC 5.54 k/cumm (4.4-10.8) 10/07/18 06:42 RBC 4.22 m/cumm (4.00-5.20) 10/07/18 06:42 Hgb 12.3 g/dL (12.0-15.5) 10/07/18 06:42 Hct 37.4 % (36.0-46.0) 10/07/18 06:42 MCV 88.6 fL (80-95) 10/07/18 06:42 MCH 29.1 pg (27.0-33.0) 10/07/18 06:42 MCHC 32.9 g/dL (32.0-36.0) 10/07/18 06:42 RDW 12.7 % (11.7-14.6) 10/07/18 06:42 Plt Count 154 x1000/uL (130-400) 10/07/18 06:42 MPV 11.1 fL (8.0-11.0) H 10/07/18 06:42 Immature Gran % 0.0 10/07/18 06:42 Neutrophils % 89.0 10/07/18 06:42 Band Neutrophils % 3.0 % 10/07/18 06:42 Lymphocytes % 4.0 10/07/18 06:42 Atypical Lymphs % 2 10/07/18 06:42 Monocytes % 2.0 10/07/18 06:42 Eosinophils % 0.0 10/07/18 06:42 Basophils % 0.0 10/07/18 06:42 Absolute Neutrophils 5.10 k/cumm (1.2-6.7) 10/07/18 06:42 Absolute Lymphocytes 0.33 k/cumm (1.2-3.4) L 10/07/18 06:42 Absolute Monocytes 0.11 k/cumm (0.11-0.7) 10/07/18 06:42 Absolute Eosinophils 0.00 k/cumm (0.0-0.7) 10/07/18 06:42 Absolute Basophils 0.00 k/cumm (0.0-0.2) 10/07/18 06:42 Differential Comment Manual differential 10/07/18 06:42 RBC Morphology See below 10/07/18 06:42 Polychromasia Present 10/07/18 06:42 APTT 24.1 sec (21.0-31.4) 10/07/18 09:45 D-Dimer 736 ng/mlFEU (<500) H 10/05/18 15:15 Sodium 141 mmol/L (136-145) 10/07/18 06:42 Potassium 3.3 mmol/L (3.5-5.1) L 10/07/18 06:42 Chloride 105 mmol/L (98-107) 10/07/18 06:42 Carbon Dioxide 28.0 mmol/L (21.0-32.0) 10/07/18 06:42 Anion Gap 8.0 mmol/L (3-11) 10/07/18 06:42 BUN 18 mg/dL (7-18) 10/07/18 06:42 Creatinine 0.85 mg/dL (0.55-1.02) 10/07/18 06:42 Estimated GFR/1.73 m2 >= 60.00 (mL/min/1.73m2) 10/07/18 06:42 Glucose 153 mg/dL (70-100) H 10/07/18 06:42 Lactate 1.3 mmol/l (0.6-1.4) 10/06/18 16:30 Calcium 9.2 mg/dL (8.5-10.1) 10/07/18 06:42 Magnesium 2.0 mg/dL (1.8-2.4) 10/07/18 06:42 Total Bilirubin 1.3 mg/dL (0.2-1.0) H 10/05/18 12:15 AST 35 U/L (15-37) 10/05/18 12:15 ALT 13 U/L (12-78) 10/05/18 12:15 Alkaline Phosphatase 83 U/L (46-116) 10/05/18 12:15 Troponin I 1.75 ng/mL (0.00-0.06) H* 10/07/18 06:42 Total Protein 7.7 g/dL (6.4-8.2) 10/05/18 12:15 Albumin 3.5 g/dL (3.4-5.0) 10/05/18 12:15 Documented by User: Oscar Almanzar MD 10/09/18 18:09
[2018-10-07 10:08] LABS: Troponin I 1.44 ng/mL (0.00-0.06)
[2018-10-07] MEDS: Potassium Chloride 20 MEQ TABCR 40 MEQ PO (10:49)
[2018-10-07] MEDS: methylPREDNISolone SUCC 125 MG VIAL 40 MG IVP ×2 (12:31→20:42)
[2018-10-07 14:16] LABS: Troponin I 1.05 ng/mL (0.00-0.06)
--- NOTE | 2018-10-07 14:17 | PHARADMIT ---
Addendum entered by Jordan Floyd III 10/12/18 12:48: Pharmacy Note Subjective Still showing significant dyspnea with minimal movement. Objective VS-OK SAO2-95% on 1L, Labs-OK Assessment MD weaning steroids slowly, IV ABX continue on Day#6 Plan Slow recovery, Addendum entered by Jordan Floyd III 10/11/18 11:34: Pharmacy Note Subjective MD notes patient is slow to improve, lungs won't open up .Bad COPD. Objective VS-OK SA-O2 93% on 1.5L, Lytes, SCr. H&H,WBC,Plts-OK Having BMs Assessment Trying to wean off O2 and updrafts. Azithrromycin PO & Zosyn continue. Plan Will return to homee when ready for discharge. Original Note: Admission Pharmacy Clinical Review COPD exacerbation Code Status Full Code Current Weight 52.3 kg Renally Cleared and Narrow Therapeutic Index Meds crcl ~50ml/min QTc Value / Action Taken 438 BP Control, Fever 113/62 afebrile Electrolytes reviewed K 3.3, PO KCL ordered DVT Prophylaxis heparin infusion Opiate Usage / Scheduled Bowel Regimen Ordered no/prn Plt/SCr for Heparin / Enoxaparin 154/0.85 INR for Warfarin na H/H stable, WBC/Bands 12.3/37.4 wbc 5.54 Antibiotic appropriateness pip/tazo, azithromycin, Cultures and Sensitivities Bc no growth 24 hours, strep test negative, flu negative Surgical ABX d/c within 24 hr na DM control / Insulin Dosing na Heart Failure (Check EF%) (QUANG's, B-Block, Diuretics) na IV to PO Switch Home Meds Reviewed Home Meds Not Ordered tiotropium bromide [Spiriva Handihaler] 18 mcg INHALATION DAILY hydrochlorothiazide 25 mg tablet 25 mg PO DAILY #90 tab-cap 06/28/18 albuterol sulfate HFA 90 mcg/actuation aerosol inhaler Comments
--- NOTE | 2018-10-07 16:05 | CMPROGNOTE_ITS ---
Care Management Progress Note S/O: Lying in bed visiting with her , Eloy. Expecting their daughter to arrive from [place] later this afternoon and she is going to stay at the house for a while to help out. She and Eloy were worried about her heart since the doctor informed them she had a heart attack last night. Troponins were elevated. Feels she is a long way away from being able to go home. Hopes her lungs will start to clear up. A: 73 y.o. female admitted for COPD exacerbation and also being treated with IV antibiotics for pneumonia. P: Lianna will return home when medically cleared for discharge. No anticipated need for services at this time. Eloy will transport.
[2018-10-07 17:18] LABS: PTT Activated 35.8 sec (21.0-31.4)
[2018-10-07] MEDS: POTASSIUM CHLORIDE 20 MEQ, POTASSIUM CHLORIDE 10 MEQ 30 MEQ PO (17:29)
[2018-10-07] MEDS: Atorvastatin 40 MG TAB 80 MG PO (20:42)
[2018-10-08] VITALS (15 sets, daily range): BP systolic 106–145; BP diastolic 63–82; PULSE 79–108; RESP 4–22; TEMP 36.6–37.1; O2SAT 24–100
[2018-10-08 00:07] LABS: PTT Activated 61.4 sec (21.0-31.4)
[2018-10-08] MEDS: PIPERACILLIN/TAZO 4.5 GM in Normal Saline 100 ML IVPB ×3 (01:57→17:15)
[2018-10-08] MEDS: Normal Saline Flush 10 ML SYR IVP ×4 (01:58→17:15)
[2018-10-08] MEDS: methylPREDNISolone SUCC 125 MG VIAL 40 MG IVP ×3 (04:06→20:23)
[2018-10-08] MEDS: Albuterol/Ipratropium 3 ML UPD VIAL UPD ×4 (04:06→20:22)
[2018-10-08 08:08] LABS: HCT 37.2 % (36.0-46.0); Mean Corp. HGB Concentration 32.3 g/dL (32.0-36.0); Mean Corpuscular Hemoglobin 29.1 pg (27.0-33.0); Mean Corpuscular Volume 90.1 fL (80-95); Mean Platelet Volume 10.8 fL (8.0-11.0); Platelet Count 174 x1000/uL (130-400); RBC 4.13 m/cumm (4.00-5.20); RBC Distribution Width 12.9 % (11.7-14.6); White Blood Cell Count 7.05 k/cumm (4.4-10.8)
[2018-10-08] MEDS: Metoprolol 12.5 MG TAB PO (08:13)
[2018-10-08 08:18] LABS: PTT Activated 60.3 sec (21.0-31.4)
[2018-10-08 08:20] LABS: Anion Gap 6.5 mmol/L (3-11); BUN 20 mg/dL (7-18); CO2 29.5 mmol/L (21.0-32.0); CREATININE 0.91 mg/dL (0.55-1.02); Calcium 9.5 mg/dL (8.5-10.1); Chloride 107 mmol/L (98-107); Glucose 134 mg/dL (70-100); Magnesium 2.3 mg/dL (1.8-2.4); Potassium 3.9 mmol/L (3.5-5.1); Sodium 143 mmol/L (136-145)
[2018-10-08 08:31] LABS: Absolute Lymphocyte Count 0.49 k/cumm (1.2-3.4); Absolute Monocyte Count 0.28 k/cumm (0.11-0.7); Absolute Neutrophil Count 6.27 k/cumm (1.2-6.7); Atypical Lymphocytes % 2
[2018-10-08 08:32] LABS: Diff Comment Manual Differential; RBC Morphology Normal
[2018-10-08] MEDS: Benzonatate 200 MG CAP PO ×3 (08:35→20:22)
[2018-10-08] MEDS: guaiFENesin 600 MG TABCR 1200 MG PO ×2 (08:36→20:22)
[2018-10-08] MEDS: Pantoprazole 40 MG TABCR PO (08:36)
[2018-10-08] MEDS: Azithromycin 250 MG TAB PO (08:36)
[2018-10-08] MEDS: Clopidogrel 75 MG TAB PO (08:36)
[2018-10-08] MEDS: Aspirin E.C. 81 MG TABEC PO (08:36)
[2018-10-08] MEDS: Cetirizine 10 MG TAB PO (08:36)
--- NOTE | 2018-10-08 09:00 | MERGE_ITS ---
*[facility]* *[facility]* [address] [place] [address] Date of study: 10/08/2018 Transthoracic Echocardiography M-mode, complete 2D, complete spectral Doppler, and color Doppler *STUDY CONCLUSIONS* Summary: 1. Left ventricle: The cavity size was normal. Systolic function was normal. The estimated ejection fraction was 60-65%. Diastolic parameters were normal. There was no evidence of elevated ventricular filling pressure by Doppler parameters. 2. Mitral valve: There was mild regurgitation. 3. Right ventricle: The cavity size was normal. Wall thickness was normal. Systolic function was normal. 4. Atrial septum: No defect or patent foramen ovale was identified. 5. Pulmonary arteries: Pulmonary systolic pressure was in the range of 35mm Hg to 45mm Hg. 6. Inferior vena cava: The vessel was patent and normal in size. The respirophasic diameter changes were in the normal range (greater than or equal to 50%), consistent with normal central venous pressure. *PATIENT PRESENTATION* Height: 162.6cm ((64in) ) S/D Pressure: 139 / 71 Weight: 52.2kg ((114.8lb) ) BSA: 1.53m^2 Test start time: 09:05 AM. Test stop time: 10:00 AM. PERFORMING Unknown ORDERING Oscar Almanzar REFERRING Oscar Almanzar PERFORMING [facility] CONSULTING Sue Rodney AUTO ADJUDICATION SPECIALIST RT Marty (R)(MINA), ROWDY *PROCEDURE DATA* Procedure information: The patient was identified by two identifiers. This study was interpreted by [facility]. Pertinent images and digital data are archived for permanent storage and are available for subsequent review. No prior study was available for comparison. Study status: Routine. Transthoracic echocardiography. M-mode, complete 2D, complete spectral Doppler, and color Doppler. A Transthoracic Echocardiogram was performed. Scanning was performed from the parasternal, apical, subcostal, and suprasternal notch acoustic windows. Images were obtained using an [id number] cardiac ultrasound machine. Image quality was adequate. Study completion: The patient tolerated the procedure well. History: PMH: Elevated troponin. *CARDIAC ANATOMY* Left ventricle: The cavity size was normal. Systolic function was normal. The estimated ejection fraction was 60-65%. Diastolic parameters were normal. There was no evidence of elevated ventricular filling pressure by Doppler parameters. Aortic valve: Doppler: There was no stenosis. There was no regurgitation. VTI ratio of LVOT to aortic valve: 0.8. Valve area (VTI): 2cm^2. Indexed valve area (VTI): 1.3cm^2/m^2. Peak velocity ratio of LVOT to aortic valve: 0.65. Valve area (Vmax): 1.7cm^2. Indexed valve area (Vmax): 1.1cm^2/m^2. Mean velocity ratio of LVOT to aortic valve: 0.78. Valve area (Vmean): 2cm^2. Indexed valve area (Vmean): 1.3cm^2/m^2. Mean gradient (S): 2.1mm Hg. Peak gradient (S): 4.4mm Hg. Aorta: Aortic root: The aortic root was normal in size. Mitral valve: Doppler: There was no evidence for stenosis. There was mild regurgitation. Valve area by pressure half-time: 3.9cm^2. Indexed valve area by pressure half-time: 2.5cm^2/m^2. Peak gradient (D): 2.8mm Hg. Left atrium: The atrium was normal in size. Atrial septum: No defect or patent foramen ovale was identified. Right ventricle: The cavity size was normal. Wall thickness was normal. Systolic function was normal. Pulmonic valve: Doppler: There was no evidence for stenosis. There was no significant regurgitation. Peak gradient (S): 2.6mm Hg. Tricuspid valve: Doppler: There was mild regurgitation. Pulmonary artery: Poorly visualized. Pulmonary systolic pressure was in the range of 35mm Hg to 45mm Hg. Right atrium: The atrium was normal in size. Pericardium: There was no pericardial effusion. Systemic veins: Inferior vena cava: Well visualized. The vessel was patent and normal in size. The respirophasic diameter changes were in the normal range (greater than or equal to 50%), consistent with normal central venous pressure. Baseline ECG: Normal sinus rhythm. Measurements Left ventricle Value Reference LV ID, ED, PLAX 4.1 cm 3.5 - 6.0 LV ID, ES, PLAX 3.0 cm 2.1 - 4.0 LV PW thickness, ED, PLAX 0.9 cm LV end-diastolic volume, 1-p A4C 47 ml LV ejection fraction, 1-p A4C 55 % LV e', lateral 0.085 m/sec LV E/e', lateral 10 LV e', medial 0.092 m/sec LV E/e', medial 9 LV e', average 0.088 m/sec LV E/e', average 9 Ventricular septum Value Reference IVS thickness, ED, PLAX 0.9 cm LVOT Value Reference LVOT ID, A-P 1.8 cm LVOT area 2.6 cm^2 LVOT peak velocity, S 0.68 m/sec LVOT mean velocity, S 0.53 m/sec LVOT VTI, S 17.5 cm LVOT peak gradient, S 1.9 mm Hg LVOT mean gradient, S 1.2 mm Hg Stroke volume (SV), LVOT DP 45 ml Stroke index (SV/bsa), LVOT DP 29 ml/m^2 Aortic valve Value Reference Aortic valve peak velocity, S 1 m/sec Aortic valve mean velocity, S 0.68 m/sec Aortic valve VTI, S 22.0 cm Aortic mean gradient, S 2.1 mm Hg Aortic peak gradient, S 4.4 mm Hg VTI ratio, LVOT/AV 0.8 Aortic valve area, VTI 2 cm^2 Velocity ratio, peak, LVOT/AV 0.65 Aortic valve area, peak velocity 1.7 cm^2 Velocity ratio, mean, LVOT/AV 0.78 Aortic valve area, mean velocity 2 cm^2 Aortic valve area/bsa, mean velocity 1.3 cm^2/m^2 Aorta Value Reference Aortic root ID, ED 3.0 cm Left atrium Value Reference LA ID, A-P, ES 3.2 cm LA ID/bsa, A-P 2.1 cm/m^2 <=2.2 LA area, ES, A4C 13.3 cm^2 8.8 - 23.4 LA volume/bsa, ES, 1-p A4C 23 ml/m^2 LA/aortic root ratio 1.06 Mitral valve Value Reference Mitral E-wave peak velocity 0.83 m/sec Mitral A-wave peak velocity 0.84 m/sec Mitral deceleration time 196 ms 150 - 230 Mitral pressure half-time 57 ms Mitral peak gradient, D 2.8 mm Hg Mitral E/A ratio, peak 1 Mitral valve area, PHT, DP 3.9 cm^2 Tricuspid valve Value Reference Tricuspid regurg peak velocity 3.1 m/sec Tricuspid peak RV-RA gradient 39.2 mm Hg Right atrium Value Reference RA area, ES, A4C (L) 6.3 cm^2 8.3 - 19.5 Pulmonic valve Value Reference Pulmonic peak gradient, S 2.6 mm Hg Legend: (L) and (H) son values outside specified reference range. I have personally reviewed the images and have reviewed and edited the reported findings. Electronically signed by Dave Welch MD 10/08/2018 18:06
[2018-10-08 10:07] LABS: Troponin I 0.33 ng/mL (0.00-0.06)
[2018-10-08] MEDS: Potassium Chloride 10 MEQ TABCR PO (10:34)
--- NOTE | 2018-10-08 13:14 | PGE_ITS ---
Documented by User: Es Terry NP 10/08/18 13:55 Date of Service Date of service: 10/08/18 Time of Service: 13:42 Assessment and Plan (1) NSTEMI (non-ST elevated myocardial infarction): Start date: 10/08/18 Start time: 13:29 Current visit: Yes Status: Acute non ischemic EKG normal appearing, in the setting of elevated troponins, today troponins are leveling off at 0.33. Discussed with cardiology at [facility] and they feel in the setting of nonischemic EKG, no chest pain, down trending troponin, this patient would benefit from an outpatient stress test, and medical management with optimized cardiac regimen is appropriate. No Chest pain today. Echo results pending. Heparin gtt for another 24 hours, heart rate is trending up to 100's metoporolol has been titrated up for effectiveness. (2) Pneumonia: Start date: 10/08/18 Start time: 13:27 Current visit: No Status: Acute continue zosyn and azithromycin day 3. Lungs with scattered wheezes. Xoponex, duonebs, solumedrol, continue to monitor. (3) COPD exacerbation: Start date: 10/08/18 Start time: 13:12 Current visit: Yes Status: Acute In the setting of pneumonia, see above. requiring 2 L at this time when moving around. Tried to titrate down, when off the oxygen she becomes hypoxic in the low to mid 80's (4) Pharyngitis: Start date: 10/08/18 Start time: 13:12 Current visit: Yes Status: Acute resolved (5) Smoker: Start date: 10/08/18 Start time: 13:38 Current visit: No Status: Chronic Stressed the importance of quitting smoking, pt is ready to quit (6) Hyperlipidemia: Start date: 10/08/18 Start time: 13:39 Current visit: No Status: Chronic atorvastatin 80 mg (7) Essential hypertension: Start date: 10/08/18 Start time: 13:39 Current visit: No Status: Chronic controlled at this time. Continue metoprolol titration as needed to increased HR (8) Nasal bleeding: Start date: 10/08/18 Start time: 13:39 Current visit: Yes Status: Acute Resolved (9) DVT prophylaxis: Start date: 10/08/18 Start time: 13:40 Current visit: Yes Status: Acute heparin drip see above. Subjective Patient reports: other Interval history since last seen: Mrs. Reynolds denies chest pain, she is currently on the heparin drip, she had a nonischemic normal appearing EKG yesterday in the setting of CP with elevated troponins. The troponins have s tarted to decrease with last one 0.33. Cardiology at [facility] feels that optimizing medical management with cardiac regimen is appropriate at this time. If she starts to have Chest pain with increasing troponins, she will require tertiary care. Her heart rate has started to elevate to low 100's metoprolol titrated for effectiveness. An Echo was done today with results pending at this time. She does not feel her breathing is better though she does appear to be less SOB. Her lungs have scattered wheezes and she does sound tight. On RA she is in the 90's when sitting or lying still, when she is ambulating or moving she does drop to low 80's and require oxygen. Continue treatment of nebs, xoponex, steroids, acapella and Incentive spirometry. When feeling better will obtain exercise oximetery. Exam Const General: cooperative and no acute distress [facility] Head: normal to inspection Eyes General: appearance normal, both eyes and all related structures Neck Lymphatic: no lymphadenopathy noted and no lymphedema noted Chest Chest: normal inspection of the chest Resp Effort & Inspection: able to speak in complete sentences, cough and tachypneic Auscultation: diminished lung sounds and wheezes (wheezes on expiratory) Cardio Rate: regular rate Rhythm: regular rhythm Heart Sounds: S1 normal and S2 normal GI Inspection: normal to inspection Palpation: soft and no hepatosplenomegaly Skin General skin exam: no rashes or lesions noted Neuro General: alert, awake and oriented x3 Extrem General: normal to inspection Objective Objective Clinical Data: Abnormal lab results 10/07/18 10/07/18 10/07/18 Range/Units 13:52 16:50 23:51 Absolute Lymphocytes (1.2-3.4) k/cumm APTT 35.8 H D 61.4 H D (21.0-31.4) sec BUN (7-18) mg/dL Glucose (70-100) mg/dL Troponin I 1.05 H* (0.00-0.06) ng/mL 10/08/18 10/08/1819 Range/Units 07:54 07:54 07:54 Absolute Lymphocytes 0.49 L (1.2-3.4) k/cumm APTT 60.3 H (21.0-31.4) sec BUN 20 H (7-18) mg/dL Glucose 134 H (70-100) mg/dL Troponin I (0.00-0.06) ng/mL 10/08/18 Range/Units 09:40 Absolute Lymphocytes (1.2-3.4) k/cumm APTT (21.0-31.4) sec BUN (7-18) mg/dL Glucose (70-100) mg/dL Troponin I 0.33 H* (0.00-0.06) ng/mL Vital Signs Temperature 36.9 C 10/08/18 11:50 Temperature Source Tympanic 10/08/18 11:50 Pulse 88 10/08/18 11:50 Pulse Rhythm Regular 10/08/18 07:35 Pulse 121 H 10/05/18 18:40 Respiratory Rate 20 10/08/18 11:50 Respiratory Effort Incrsd Work of Breathing 10/08/18 07:35 Respiratory Depth Normal 10/08/18 07:35 Respiratory Pattern Normal 10/08/18 07:35 Blood Pressure 145/75 H 10/08/18 11:50 Blood Pressure Mean 94 10/05/18 16:01 Blood Pressure Position Supine 10/05/18 11:38 Pulse Oximetry 94 L 10/08/18 11:50 Oxygen Delivery Method Room Air 10/08/18 11:50 Oxygen Flow Rate 0 10/08/18 11:50 Pain Level 0 10/07/18 15:36 Comment 10/07/18 00:10 Intake & Output 10/07/18 10/08/18 10/08/18 23:59 11:59 23:59 Intake Total 729.4 / 1189.4 450 / 570 120 / 570 Output Total 700 / 700 450 / 450 Balance 29.4 / 489.4 450 / 120 -330 / 120 Intake: IV 249.4 / 349.4 200 / 200 Oral 480 / 840 250 / 370 120 / 370 Output: Urine 700 / 700 450 / 450 Other: Urine Color Yellow Yellow Urine Appearance Clear Clear Clear Comment Urine mixed with loose stool Stool Size Small Stool Characteristics Liquid Black Green Voiding Methods Bedside Commode Bedside Commode Laboratory Results WBC 7.05 k/cumm (4.4-10.8) 10/08/18 07:54 RBC 4.13 m/cumm (4.00-5.20) 10/08/18 07:54 Hgb 12.0 g/dL (12.0-15.5) 10/08/18 07:54 Hct 37.2 % (36.0-46.0) 10/08/18 07:54 MCV 90.1 fL (80-95) 10/08/18 07:54 MCH 29.1 pg (27.0-33.0) 10/08/18 07:54 MCHC 32.3 g/dL (32.0-36.0) 10/08/18 07:54 RDW 12.9 % (11.7-14.6) 10/08/18 07:54 Plt Count 174 x1000/uL (130-400) 10/08/18 07:54 MPV 10.8 fL (8.0-11.0) 10/08/18 07:54 Immature Gran % 0.0 10/08/18 07:54 Neutrophils % 89.0 10/08/18 07:54 Band Neutrophils % 3.0 % 10/07/18 06:42 Lymphocytes % 5.0 10/08/18 07:54 Atypical Lymphs % 2 10/08/18 07:54 Monocytes % 4.0 10/08/18 07:54 Eosinophils % 0.0 10/08/18 07:54 Basophils % 0.0 10/08/18 07:54 Absolute Neutrophils 6.27 k/cumm (1.2-6.7) 10/08/18 07:54 Absolute Lymphocytes 0.49 k/cumm (1.2-3.4) L 10/08/18 07:54 Absolute Monocytes 0.28 k/cumm (0.11-0.7) 10/08/18 07:54 Absolute Eosinophils 0.00 k/cumm (0.0-0.7) 10/08/18 07:54 Absolute Basophils 0.00 k/cumm (0.0-0.2) 10/08/18 07:54 Differential Comment Manual differential 10/08/18 07:54 RBC Morphology Normal 10/08/18 07:54 Polychromasia Present 10/07/18 06:42 APTT 60.3 sec (21.0-31.4) H 10/08/18 07:54 D-Dimer 736 ng/mlFEU (<500) H 10/05/18 15:15 Sodium 143 mmol/L (136-145) 10/08/18 07:54 Potassium 3.9 mmol/L (3.5-5.1) 10/08/18 07:54 Chloride 107 mmol/L (98-107) 10/08/18 07:54 Carbon Dioxide 29.5 mmol/L (21.0-32.0) 10/08/18 07:54 Anion Gap 6.5 mmol/L (3-11) 10/08/18 07:54 BUN 20 mg/dL (7-18) H 10/08/18 07:54 Creatinine 0.91 mg/dL (0.55-1.02) 10/08/18 07:54 Estimated GFR/1.73 m2 >= 60.00 (mL/min/1.73m2) 10/08/18 07:54 Glucose 134 mg/dL (70-100) H 10/08/18 07:54 Lactate 1.3 mmol/l (0.6-1.4) 10/06/18 16:30 Calcium 9.5 mg/dL (8.5-10.1) 10/08/18 07:54 Magnesium 2.3 mg/dL (1.8-2.4) 10/08/18 07:54 Total Bilirubin 1.3 mg/dL (0.2-1.0) H 10/05/18 12:15 AST 35 U/L (15-37) 10/05/18 12:15 ALT 13 U/L (12-78) 10/05/18 12:15 Alkaline Phosphatase 83 U/L (46-116) 10/05/18 12:15 Troponin I 0.33 ng/mL (0.00-0.06) H* 10/08/18 09:40 Total Protein 7.7 g/dL (6.4-8.2) 10/05/18 12:15 Albumin 3.5 g/dL (3.4-5.0) 10/05/18 12:15 Documented by User: Oscar Almanzar MD 10/09/18 18:09
[2018-10-08] MEDS: Metoprolol 25 MG TAB PO ×2 (14:18→21:32)
--- NOTE | 2018-10-08 14:20 | PDOC.CMPRO ---
Care Management Progress Note S/O: Lianna was sitting on the side of the bed, her at her bedside when CM met with them. She reported anticipating being at [facility] for a few more days for respiratory improvement. Dr. Almanzar reported she would likely require longer term steroid treatment post discharge. Home O2 requirement to be determined; CM will continue to follow. A: 73 y.o. female admitted to [facility] 10/05/18 for COPD exacerbation P: Lianna will return home when medically cleared for discharge, undetermined whether she will have new orders for home O2 at this time; CM will continue to follow. She will transport via private vehicle with her , Eloy.
--- NOTE | 2018-10-08 16:00 | CMPROGNOTE_ITS ---
Care Management Progress Note S/O: Lianna was sitting on the side of the bed, her at her bedside when CM met with them. She reported anticipating being at [facility] for a few more days for respiratory improvement. Dr. Almanzar reported she would likely require longer term steroid treatment post discharge. Home O2 requirement to be determined; CM will continue to follow. A: 73 y.o. female admitted to [facility] 10/05/18 for COPD exacerbation P: Lianna will return home when medically cleared for discharge, undetermined whether she will have new orders for home O2 at this time; CM will continue to follow. She will transport via private vehicle with her , Eloy.
[2018-10-08] MEDS: Atorvastatin 40 MG TAB 80 MG PO (20:22)
[2018-10-09] VITALS (19 sets, daily range): BP systolic 133–158; BP diastolic 77–83; PULSE 69–103; RESP 2–20; TEMP 36–37; O2SAT 92–99
[2018-10-09] MEDS: PIPERACILLIN/TAZO 4.5 GM in Normal Saline 100 ML IVPB ×3 (01:56→17:57)
[2018-10-09] MEDS: Albuterol/Ipratropium 3 ML UPD VIAL UPD ×5 (03:36→21:01)
[2018-10-09] MEDS: methylPREDNISolone SUCC 125 MG VIAL 40 MG IVP (03:37)
[2018-10-09] MEDS: Metoprolol 25 MG TAB PO ×3 (06:11→22:05)
[2018-10-09] MEDS: Normal Saline Flush 10 ML SYR IVP ×3 (06:11→13:02)
[2018-10-09 07:31] LABS: HCT 38.8 % (36.0-46.0); HGB 12.6 g/dL (12.0-15.5); Mean Corp. HGB Concentration 32.5 g/dL (32.0-36.0); Mean Corpuscular Volume 89.4 fL (80-95); Mean Platelet Volume 10.8 fL (8.0-11.0); RBC 4.34 m/cumm (4.00-5.20); RBC Distribution Width 12.8 % (11.7-14.6); White Blood Cell Count 6.57 k/cumm (4.4-10.8)
[2018-10-09 07:48] LABS: Anion Gap 7.1 mmol/L (3-11); BUN 20 mg/dL (7-18); CO2 30.9 mmol/L (21.0-32.0); CREATININE 0.94 mg/dL (0.55-1.02); Calcium 9.4 mg/dL (8.5-10.1); Chloride 104 mmol/L (98-107); Glucose 126 mg/dL (70-100); Magnesium 2.2 mg/dL (1.8-2.4); Potassium 3.8 mmol/L (3.5-5.1); Sodium 142 mmol/L (136-145)
[2018-10-09] MEDS: Benzonatate 200 MG CAP PO ×3 (07:53→21:01)
[2018-10-09] MEDS: Azithromycin 250 MG TAB PO (07:53)
[2018-10-09] MEDS: Pantoprazole 40 MG TABCR PO (07:53)
[2018-10-09] MEDS: Aspirin E.C. 81 MG TABEC PO (07:53)
[2018-10-09] MEDS: guaiFENesin 600 MG TABCR 1200 MG PO ×2 (07:53→21:00)
[2018-10-09] MEDS: Clopidogrel 75 MG TAB PO (07:53)
[2018-10-09] MEDS: Cetirizine 10 MG TAB PO (07:53)
[2018-10-09 07:59] LABS: PTT Activated 81.1 sec (21.0-31.4)
[2018-10-09 08:52] LABS: Absolute Lymphocyte Count 0.39 k/cumm (1.2-3.4); Absolute Monocyte Count 0.13 k/cumm (0.11-0.7); Absolute Neutrophil Count 5.98 k/cumm (1.2-6.7); Atypical Lymphocytes % 3
[2018-10-09 08:53] LABS: Diff Comment Manual Differential; Platelet Count 196 x1000/uL (130-400); RBC Morphology Normal
[2018-10-09] MEDS: methylPREDNISolone SUCC 40 MG VIAL IVP ×2 (13:02→21:01)
[2018-10-09] MEDS: Levalbuterol 0.63 MG/3 ML UPD VIAL UPD (14:36)
[2018-10-09] MEDS: Enoxaparin 40 MG/0.4 ML SYR SC (15:41)
--- NOTE | 2018-10-09 18:12 | PGE_ITS ---
Date of Service Date of service: 10/09/18 Time of Service: 18:10 Assessment and Plan (1) COPD exacerbation: Current visit: Yes Status: Acute In setting of underlying pneumonia. Continue antibiotic therapy and current dose of steroids for another day, with hopes of decreasing dose tomorrow. Also on nebulizer therapy. (2) Pneumonia: Current visit: No Status: Acute Continue current regimen of PIP [place] and azithromycin, currently day#4. Continue management of concurrent COPD exacerbation as above. (3) Chest pain: Current visit: Yes Status: Acute Appearance of chest pain and elevated troponin as high as 1.75, which is down trended to 0.33 with treatment. This occurred in the setting of acute illness with concurrent COPD exacerbation, underlying pneumonia, hypoxia, and tachycardia. Subsequent EKG was obtained and nonischemic, the patient has remained asymptomatic. This very likely represents demand ischemia. Case was discussed with cardiology at [facility] who are in complete agreement. Will benefit from stress testing at some point in the future when current illness has resolved. Echo also checked and without evidence of CHF or wall motion abnormalities. (4) Peripheral vascular disease: Current visit: No Status: Chronic Currently on antiplatelet therapy with both aspirin and clopidogrel, beta- mary therapy, and high-dose high potency statin. Consider addition of QUANG inhibitor in the future as well. (5) Nodule of right lung: Current visit: No Status: Chronic According to the patient this has been worked up/biopsied in the past at [facility] and deemed to be benign. Current nodule appears to be stable since the end of July of this year. Continue to monitor and follow-up as an outpatient. (6) Hyperlipidemia: Current visit: No Status: Chronic Continue high potency statin therapy. (7) Essential hypertension: Current visit: No Status: Chronic Slightly hypertensive. Continue titrate beta-mary, and consider addition of QUANG inhibitor in the future. (8) DVT prophylaxis: Current visit: Yes Status: Acute Continue enoxaparin. Also on PPI therapy for GI prophylaxis. Subjective Interval history since last seen: 73 year old woman with a prior history of tobacco use, admitted from [facility] Emergency Department with a diagnosis of Pneumonia with concurrent COPD exacerbation. Mrs. Reynolds has a prior history significant for carotid artery disease, PVD, dyslipidemia, and hypertension. She is also a current active daily smoker, with a history of upwards of 3 packs/day of smoking, and very likely underlying COPD. She presented to the ED with a 10-day history of cough, low-grade fever, and worsening dyspnea. Workup included negative flu, elevated lactate, and a CT of the chest that was negative for PE, but demonstrated bronchiectasis and mild opacities in the left lower lobe represented pneumonia versus atelectasis. She was also noted to have a stable appearing spiculated RUL 9 mm pleural-based nodule (stable when compared to CT from late July of this year). She was admitted, initiated on antibiotic therapy, IV steroids, and aggressive nebs. Shortly after admission Mrs. An develops onset of chest pain, with subsequent elevation in her troponin. Her EKG was checked and negative, and her echo was essentially unremarkable with the exception of some pulmonary hypertension. She has since remained chest pain-free, and her troponin has down trended. Morning the patient reports some improvement in her symptoms, and is now on room air for first time since her admission. No other overnight events were reported. She remains afebrile. Exam Narrative Exam Narrative: General: Patient appears comfortable, AAOX3, NAD Neck: Supple CV: Regular, nontachycardic, S1S2, No rubs, murmurs, or gallops. Pulmonary: Clear to auscultation bilaterally, no crackles, wheezing, or rhonchi Abdomen: + Bowel Sounds, soft, nontender, nondistended Vascular: No lower extremity edema Neurologic: CN II-XII grossly intact. No focal deficits. Psych: Normal mood and affect. Objective Objective Clinical Data: Abnormal lab results 10/09/18 10/09/18 10/09/18 Range/Units 07:15 07:15 07:15 Absolute Lymphocytes 0.39 L (1.2-3.4) k/cumm APTT 81.1 H* (21.0-31.4) sec BUN 20 H (7-18) mg/dL Glucose 126 H (70-100) mg/dL Vital Signs Temperature 37 C 10/09/18 16:04 Temperature Source Tympanic 10/09/18 16:04 Pulse 82 10/09/18 16:04 Pulse Rhythm Regular 10/09/18 16:35 Pulse 121 H 10/05/18 18:40 Respiratory Rate 19 10/09/18 16:04 Respiratory Effort Short of Breath 10/09/18 16:35 Respiratory Depth Normal 10/09/18 16:35 Respiratory Pattern Normal 10/09/18 16:35 Blood Pressure 147/80 H 10/09/18 16:04 Blood Pressure Mean 94 10/05/18 16:01 Blood Pressure Position Supine 10/05/18 11:38 Pulse Oximetry 93 L 10/09/18 16:04 Oxygen Delivery Method Nasal Cannula 10/09/18 16:04 Oxygen Flow Rate 2 10/09/18 16:04 Pain Level 0 10/09/18 07:47 Comment 10/09/18 07:47 Intake & Output 10/08/18 10/09/18 10/09/18 23:59 11:59 23:59 Intake Total 452.875 / 902.875 666.75 / 1746.75 1080 / 1746.75 Output Total 450 / 450 550 / 550 Balance 2.875 / 452.875 666.75 / 1196.75 530 / 1196.75 Intake: IV 332.875 / 532.875 216.75 / 336.75 120 / 336.75 Oral 120 / 370 450 / 1410 960 / 1410 Output: Urine 450 / 450 250 / 250 Stool 300 / 300 Other: Urine Color Yellow Yellow Urine Appearance Clear Clear Urine Odor Normal Comment mixed with stool in hat, taken prior to bowel movement Stool Characteristics Liquid Liquid Voiding Methods Bedside Commode Bedside Commode Laboratory Results WBC 6.57 k/cumm (4.4-10.8) 10/09/18 07:15 RBC 4.34 m/cumm (4.00-5.20) 10/09/18 07:15 Hgb 12.6 g/dL (12.0-15.5) 10/09/18 07:15 Hct 38.8 % (36.0-46.0) 10/09/18 07:15 MCV 89.4 fL (80-95) 10/09/18 07:15 MCH 29.0 pg (27.0-33.0) 10/09/18 07:15 MCHC 32.5 g/dL (32.0-36.0) 10/09/18 07:15 RDW 12.8 % (11.7-14.6) 10/09/18 07:15 Plt Count 196 x1000/uL (130-400) 10/09/18 07:15 MPV 10.8 fL (8.0-11.0) 10/09/18 07:15 Immature Gran % See Differential 10/09/18 07:15 Neutrophils % 88.0 10/09/18 07:15 Band Neutrophils % 3.0 % 10/09/18 07:15 Lymphocytes % 3.0 10/09/18 07:15 Atypical Lymphs % 3 10/09/18 07:15 Monocytes % 2.0 10/09/18 07:15 Eosinophils % 0.0 10/09/18 07:15 Basophils % 0.0 10/09/18 07:15 Metamyelocytes % 1.0 % 10/09/18 07:15 Absolute Neutrophils 5.98 k/cumm (1.2-6.7) 10/09/18 07:15 Absolute Lymphocytes 0.39 k/cumm (1.2-3.4) L 10/09/18 07:15 Absolute Monocytes 0.13 k/cumm (0.11-0.7) 10/09/18 07:15 Absolute Eosinophils 0.00 k/cumm (0.0-0.7) 10/09/18 07:15 Absolute Basophils 0.00 k/cumm (0.0-0.2) 10/09/18 07:15 Differential Comment Manual differential 10/09/18 07:15 RBC Morphology Normal 10/09/18 07:15 Polychromasia Present 10/07/18 06:42 APTT 81.1 sec (21.0-31.4) H* 10/09/18 07:15 D-Dimer 736 ng/mlFEU (<500) H 10/05/18 15:15 Sodium 142 mmol/L (136-145) 10/09/18 07:15 Potassium 3.8 mmol/L (3.5-5.1) 10/09/18 07:15 Chloride 104 mmol/L (98-107) 10/09/18 07:15 Carbon Dioxide 30.9 mmol/L (21.0-32.0) 10/09/18 07:15 Anion Gap 7.1 mmol/L (3-11) 10/09/18 07:15 BUN 20 mg/dL (7-18) H 10/09/18 07:15 Creatinine 0.94 mg/dL (0.55-1.02) 10/09/18 07:15 Estimated GFR/1.73 m2 58.70 (mL/min/1.73m2) 10/09/18 07:15 Glucose 126 mg/dL (70-100) H 10/09/18 07:15 Lactate 1.3 mmol/l (0.6-1.4) 10/06/18 16:30 Calcium 9.4 mg/dL (8.5-10.1) 10/09/18 07:15 Magnesium 2.2 mg/dL (1.8-2.4) 10/09/18 07:15 Total Bilirubin 1.3 mg/dL (0.2-1.0) H 10/05/18 12:15 AST 35 U/L (15-37) 10/05/18 12:15 ALT 13 U/L (12-78) 10/05/18 12:15 Alkaline Phosphatase 83 U/L (46-116) 10/05/18 12:15 Troponin I 0.33 ng/mL (0.00-0.06) H* 10/08/18 09:40 Total Protein 7.7 g/dL (6.4-8.2) 10/05/18 12:15 Albumin 3.5 g/dL (3.4-5.0) 10/05/18 12:15
--- NOTE | 2018-10-09 18:27 | CMPROGNOTE_ITS ---
Care Management Progress Note S/O: Lianna was sitting on the side of the bed, her daughter and son-in-law at her bedside when CM met with them. They shared concerns regarding updates on ECHO results which CM shared with providers. Home O2 requirement to be determined; CM will continue to follow. A: 73 y.o. female admitted to [facility] 10/05/18 for COPD exacerbation P: Lianna will return home when medically cleared for discharge, undetermined whether she will have new orders for home O2 at this time. reports she will likely require longer term steroid treatment post discharge. CM will continue to follow. She will transport via private vehicle with her , Eloy.
[2018-10-09] MEDS: Atorvastatin 40 MG TAB 80 MG PO (21:00)
[2018-10-10] VITALS (10 sets, daily range): BP systolic 122–155; BP diastolic 63–80; PULSE 71–90; RESP 8–20; TEMP 36–36.9; O2SAT 94–98
[2018-10-10] MEDS: Albuterol/Ipratropium 3 ML UPD VIAL UPD ×5 (01:04→20:36)
[2018-10-10] MEDS: PIPERACILLIN/TAZO 4.5 GM in Normal Saline 100 ML IVPB ×3 (02:12→17:24)
[2018-10-10] MEDS: Normal Saline Flush 10 ML SYR IVP ×4 (02:13→17:24)
[2018-10-10] MEDS: methylPREDNISolone SUCC 40 MG VIAL IVP ×3 (04:20→20:36)
[2018-10-10] MEDS: Metoprolol 25 MG TAB PO ×2 (05:44→13:22)
[2018-10-10 07:27] LABS: Abs Immature Grans 0.14 k/cumm (0.0-0.09); HCT 38.7 % (36.0-46.0); HGB 12.8 g/dL (12.0-15.5); Mean Corp. HGB Concentration 33.1 g/dL (32.0-36.0); Mean Corpuscular Hemoglobin 29.3 pg (27.0-33.0); Mean Corpuscular Volume 88.6 fL (80-95); Mean Platelet Volume 10.5 fL (8.0-11.0); Platelet Count 215 x1000/uL (130-400); RBC 4.37 m/cumm (4.00-5.20); RBC Distribution Width 12.6 % (11.7-14.6); White Blood Cell Count 4.85 k/cumm (4.4-10.8)
[2018-10-10 07:34] LABS: Anion Gap 5.7 mmol/L (3-11); BUN 21 mg/dL (7-18); CO2 32.3 mmol/L (21.0-32.0); CREATININE 1.02 mg/dL (0.55-1.02); Calcium 9.4 mg/dL (8.5-10.1); Chloride 103 mmol/L (98-107); Estimated GFR 53.42 (mL/min/1.73m2); Glucose 118 mg/dL (70-100); Magnesium 2.3 mg/dL (1.8-2.4); Sodium 141 mmol/L (136-145)
[2018-10-10 07:41] LABS: Absolute Lymphocyte Count 0.39 k/cumm (1.2-3.4); Absolute Monocyte Count 0.19 k/cumm (0.11-0.7); Absolute Neutrophil Count 4.17 k/cumm (1.2-6.7); Atypical Lymphocytes % 3
[2018-10-10 07:42] LABS: Diff Comment Manual Differential; RBC Morphology Normal
[2018-10-10] MEDS: Clopidogrel 75 MG TAB PO (08:39)
[2018-10-10] MEDS: Aspirin E.C. 81 MG TABEC PO (08:39)
[2018-10-10] MEDS: Cetirizine 10 MG TAB PO (08:39)
[2018-10-10] MEDS: guaiFENesin 600 MG TABCR 1200 MG PO ×2 (08:39→20:36)
[2018-10-10] MEDS: Benzonatate 200 MG CAP PO ×3 (08:39→20:36)
[2018-10-10] MEDS: Pantoprazole 40 MG TABCR PO (08:39)
[2018-10-10] MEDS: Azithromycin 250 MG TAB PO (08:39)
--- NOTE | 2018-10-10 09:21 | CMPROGNOTE_ITS ---
- If Service Date Differs Date of service: 10/10/18 Time of Service: 09:19 Care Management Progress Note S/O: Lianna is sitting up in her chair eating breakfast when this science writer visits this morning, she is pleasant and receptive to discussion. Lianna reports feeling better this morning, though that the bed is uncomfortable. Lianna continues to require telemetry monitoring at this time. No change in DC plan. A: 73 y.o. female admitted to [facility] 10/05/18 for COPD exacerbation P: Lianna will return home when medically cleared for discharge, undetermined whether she will have new orders for home O2 at this time. CM will continue to follow. She will transport via private vehicle with her , Eloy.
[2018-10-10] MEDS: Enoxaparin 40 MG/0.4 ML SYR SC (13:22)
--- NOTE | 2018-10-10 14:24 | PGE_ITS ---
Date of Service Date of service: 10/10/18 Time of Service: 14:17 Assessment and Plan (1) COPD exacerbation: Current visit: Yes Status: Acute In setting of underlying pneumonia. Continue antibiotic therapy and current dose of steroids for another day, with hopes of decreasing dose tomorrow. Also on nebulizer therapy. Initiated nebulized Budesonide as well. (2) Pneumonia: Current visit: No Status: Acute Continue current regimen of PIP-Tazo and azithromycin, currently day#5. Continue management of concurrent COPD exacerbation as above. (3) Chest pain: Current visit: Yes Status: Acute Appearance of chest pain and elevated troponin as high as 1.75, which down-trended quickly to 0.33 with treatment. This occurred in the setting of acute illness with concurrent COPD exacerbation, underlying pneumonia, hypoxia, and tachycardia. Subsequent EKG was obtained and nonischemic, the patient has remained asymptomatic. This very likely represents demand ischemia. Will benefit from stress testing at some point in the future when current illness has resolved. Echo also checked and without evidence of CHF or wall motion abno rmalities. Heparin gtt discontinued after 48 hours. Continue daily aspirin, high potency statin, and clopidogrel. Titrate BB therapy as well. (4) Peripheral vascular disease: Current visit: No Status: Chronic Currently on antiplatelet therapy with both aspirin and clopidogrel, beta- mary therapy, and high-dose high potency statin. Consider addition of QUANG inhibitor in the future as well. (5) Nodule of right lung: Current visit: No Status: Chronic According to the patient this has been worked up/biopsied in the past at [facility] and deemed to be benign. Current nodule appears to be stable since imaging from the end of July of this year. Continue to monitor and follow-up as an outpatient. (6) Hyperlipidemia: Current visit: No Status: Chronic Continue high potency statin therapy. (7) Essential hypertension: Current visit: No Status: Chronic Slightly hypertensive. Continue to titrate beta-mary, and consider addition of QUANG inhibitor in the future. (8) DVT prophylaxis: Current visit: Yes Status: Acute Continue enoxaparin. Also on PPI therapy for GI prophylaxis. Subjective Interval history since last seen: 73 year old woman with a prior history of tobacco use, admitted from [facility] Emergency Department with a diagnosis of Pneumonia with concurrent COPD exacerbation. Mrs. Reynolds has a prior history significant for carotid artery disease, PVD, dyslipidemia, and hypertension. She is also a current active daily smoker, with a history of upwards of 3 packs/day of smoking, and very likely underlying COPD. She presented to the ED with a 10-day history of cough, low-grade fever, and worsening dyspnea. Workup included negative flu, elevated lactate, and a CT of the chest that was negative for PE, but demonstrated bronchiectasis and mild opacities in the left lower lobe represented pneumonia versus atelectasis. She was also noted to have a stable appearing spiculated RUL 9 mm pleural-based nodule (stable when compared to CT from late July of this year). She was admitted, initiated on antibiotic therapy, IV steroids, and aggressive nebs. Shortly after admission Mrs. An develops onset of chest pain, with subsequent elevation in her troponin. Her EKG was checked and negative, and her echo was essentially unremarkable with the exception of some pulmonary hypertension. She has since remained chest pain-free, and her troponin has down trended. Morning the patient reports improvement in her symptoms overall, but essentially unchanged since yesterday. She is now either on room air or requiring minimal oxygen at re this is st, and appears less dyspneic following minimal activity. No other overnight events were reported. She remains afebrile. Exam Narrative Exam Narrative: General: Patient appears comfortable, AAOX3, NAD Neck: Supple CV: Regular, borderline tachycardic, S1S2, No rubs, murmurs, or gallops. Pulmonary: Significantly diminished with minimal wheezing. Improved since time of admission, but unchanged from yesterday. Abdomen: + Bowel Sounds, soft, nontender, nondistended Vascular: No lower extremity edema Psych: Normal mood and affect. Objective Objective Clinical Data: Abnormal lab results 10/10/18 10/10/18 Range/Units 07:20 07:20 Absolute Lymphocytes 0.39 L (1.2-3.4) k/cumm Carbon Dioxide 32.3 H (21.0-32.0) mmol/L BUN 21 H (7-18) mg/dL Glucose 118 H (70-100) mg/dL Vital Signs Temperature 36.3 C L 10/10/18 11:50 Temperature Source Skin 10/10/18 11:50 Pulse 90 10/10/18 11:50 Pulse Rhythm Regular 10/10/18 09:33 Pulse 121 H 10/05/18 18:40 Respiratory Rate 20 10/10/18 11:50 Respiratory Effort Short of Breath 10/10/18 09:33 Respiratory Depth Normal 10/10/18 09:33 Respiratory Pattern Normal 10/10/18 09:33 Blood Pressure 155/79 H 10/10/18 11:50 Blood Pressure Mean 94 10/05/18 16:01 Blood Pressure Position Supine 10/05/18 11:38 Pulse Oximetry 94 L 10/10/18 11:50 Oxygen Delivery Method Room Air 10/10/18 11:50 Oxygen Flow Rate 0 10/10/18 11:50 Pain Level 0 10/10/18 11:50 Comment 10/09/18 07:47 Intake & Output 10/09/18 10/10/18 10/10/18 23:59 11:59 23:59 Intake Total 1180 / 1846.75 800 / 800 Output Total 550 / 550 900 / 900 Balance 630 / 1296.75 -100 / -100 Intake: IV 220 / 436.75 100 / 100 Oral 960 / 1410 700 / 700 Output: Urine 250 / 250 450 / 450 Stool 300 / 300 450 / 450 Other: Urine Color Yellow Urine Appearance Clear Urine Odor Normal Comment in hat, taken prior to bowel movement mixed with stool Urine was mixed with stool, could not measure Stool Size Moderate Stool Characteristics Liquid Liquid Green Voiding Methods Bedside Commode Bedside Commode Laboratory Results WBC 4.85 k/cumm (4.4-10.8) 10/10/18 07:20 RBC 4.37 m/cumm (4.00-5.20) 10/10/18 07:20 Hgb 12.8 g/dL (12.0-15.5) 10/10/18 07:20 Hct 38.7 % (36.0-46.0) 10/10/18 07:20 MCV 88.6 fL (80-95) 10/10/18 07:20 MCH 29.3 pg (27.0-33.0) 10/10/18 07:20 MCHC 33.1 g/dL (32.0-36.0) 10/10/18 07:20 RDW 12.6 % (11.7-14.6) 10/10/18 07:20 Plt Count 215 x1000/uL (130-400) 10/10/18 07:20 MPV 10.5 fL (8.0-11.0) 10/10/18 07:20 Immature Gran % See Differential 10/10/18 07:20 Neutrophils % 85.0 10/10/18 07:20 Band Neutrophils % 1.0 % 10/10/18 07:20 Lymphocytes % 5.0 10/10/18 07:20 Atypical Lymphs % 3 10/10/18 07:20 Monocytes % 4.0 10/10/18 07:20 Eosinophils % 0.0 10/10/18 07:20 Basophils % 0.0 10/10/18 07:20 Metamyelocytes % 1.0 % 10/09/18 07:15 Myelocytes % 2.0 % 10/10/18 07:20 Absolute Neutrophils 4.17 k/cumm (1.2-6.7) 10/10/18 07:20 Absolute Lymphocytes 0.39 k/cumm (1.2-3.4) L 10/10/18 07:20 Absolute Monocytes 0.19 k/cumm (0.11-0.7) 10/10/18 07:20 Absolute Eosinophils 0.00 k/cumm (0.0-0.7) 10/10/18 07:20 Absolute Basophils 0.00 k/cumm (0.0-0.2) 10/10/18 07:20 Differential Comment Manual differential 10/10/18 07:20 RBC Morphology Normal 10/10/18 07:20 Polychromasia Present 10/07/18 06:42 APTT 81.1 sec (21.0-31.4) H* 10/09/18 07:15 D-Dimer 736 ng/mlFEU (<500) H 10/05/18 15:15 Sodium 141 mmol/L (136-145) 10/10/18 07:20 Potassium 4.0 mmol/L (3.5-5.1) 10/10/18 07:20 Chloride 103 mmol/L (98-107) 10/10/18 07:20 Carbon Dioxide 32.3 mmol/L (21.0-32.0) H 10/10/18 07:20 Anion Gap 5.7 mmol/L (3-11) 10/10/18 07:20 BUN 21 mg/dL (7-18) H 10/10/18 07:20 Creatinine 1.02 mg/dL (0.55-1.02) 10/10/18 07:20 Estimated GFR/1.73 m2 53.42 (mL/min/1.73m2) 10/10/18 07:20 Glucose 118 mg/dL (70-100) H 10/10/18 07:20 Lactate 1.3 mmol/l (0.6-1.4) 10/06/18 16:30 Calcium 9.4 mg/dL (8.5-10.1) 10/10/18 07:20 Magnesium 2.3 mg/dL (1.8-2.4) 10/10/18 07:20 Total Bilirubin 1.3 mg/dL (0.2-1.0) H 10/05/18 12:15 AST 35 U/L (15-37) 10/05/18 12:15 ALT 13 U/L (12-78) 10/05/18 12:15 Alkaline Phosphatase 83 U/L (46-116) 10/05/18 12:15 Troponin I 0.33 ng/mL (0.00-0.06) H* 10/08/18 09:40 Total Protein 7.7 g/dL (6.4-8.2) 10/05/18 12:15 Albumin 3.5 g/dL (3.4-5.0) 10/05/18 12:15
[2018-10-10] MEDS: Budesonide 0.5 MG/2 ML UPD VIAL UPD (16:10)
[2018-10-10] MEDS: Metoprolol 50 MG TAB PO (17:24)
[2018-10-10] MEDS: Atorvastatin 40 MG TAB 80 MG PO (20:36)
[2018-10-11] VITALS (10 sets, daily range): BP systolic 108–153; BP diastolic 66–82; PULSE 65–84; RESP 16–20; TEMP 36.1–37.1; O2SAT 91–97
[2018-10-11] MEDS: Albuterol/Ipratropium 3 ML UPD VIAL UPD ×3 (00:01→07:40)
[2018-10-11] MEDS: Metoprolol 50 MG TAB PO ×3 (02:30→17:56)
[2018-10-11] MEDS: PIPERACILLIN/TAZO 4.5 GM in Normal Saline 100 ML IVPB ×3 (02:37→17:56)
[2018-10-11] MEDS: methylPREDNISolone SUCC 40 MG VIAL IVP ×3 (04:19→23:22)
[2018-10-11 07:28] LABS: Abs Immature Grans 0.15 k/cumm (0.0-0.09); Absolute Monocyte Count 0.49 k/cumm (0.11-0.7); HCT 39.3 % (36.0-46.0); HGB 12.8 g/dL (12.0-15.5); Mean Corp. HGB Concentration 32.6 g/dL (32.0-36.0); Mean Corpuscular Volume 88.9 fL (80-95); Mean Platelet Volume 10.6 fL (8.0-11.0); RBC 4.42 m/cumm (4.00-5.20); RBC Distribution Width 12.5 % (11.7-14.6); White Blood Cell Count 6.16 k/cumm (4.4-10.8)
[2018-10-11 07:37] LABS: Anion Gap 3.5 mmol/L (3-11); BUN 25 mg/dL (7-18); CO2 34.5 mmol/L (21.0-32.0); CREATININE 0.95 mg/dL (0.55-1.02); Calcium 9.3 mg/dL (8.5-10.1); Chloride 104 mmol/L (98-107); Estimated GFR 57.99 (mL/min/1.73m2); Glucose 104 mg/dL (70-100); Magnesium 2.1 mg/dL (1.8-2.4); Sodium 142 mmol/L (136-145)
[2018-10-11] MEDS: Budesonide 0.5 MG/2 ML UPD VIAL UPD ×2 (07:40→19:52)
[2018-10-11 07:57] LABS: Absolute Neutrophil Count 4.99 k/cumm (1.2-6.7)
[2018-10-11 07:58] LABS: Absolute Eosinophil Count 0.06 k/cumm (0.0-0.7); Absolute Lymphocyte Count 0.49 k/cumm (1.2-3.4); Diff Comment Manual Differential; Platelet Count 246 x1000/uL (130-400); Polychromasia Present
[2018-10-11] MEDS: guaiFENesin 600 MG TABCR 1200 MG PO ×2 (08:00→19:52)
[2018-10-11] MEDS: Benzonatate 200 MG CAP PO ×3 (08:00→19:52)
[2018-10-11] MEDS: Clopidogrel 75 MG TAB PO (08:01)
[2018-10-11] MEDS: Azithromycin 250 MG TAB PO (08:01)
[2018-10-11] MEDS: Pantoprazole 40 MG TABCR PO (08:01)
[2018-10-11] MEDS: Aspirin E.C. 81 MG TABEC PO (08:01)
[2018-10-11] MEDS: Cetirizine 10 MG TAB PO (08:01)
--- NOTE | 2018-10-11 09:49 | PDOC.CMPRO ---
Care Management Progress Note S/O: Lianna was sitting up in her chair readying for lunch when CM met with her. She reported feeling she was improving though described a failed room air trial attempt; and spoke to how scared she was when she became SOB on exertion. Lianna remains pleasant in interaction and shared no concerns at this time. She remains on oxygen, at 1.5L. She continues to require telemetry monitoring as well. CM will continue to follow. A: 73 y.o. female admitted to [facility] 10/05/18 for COPD exacerbation P: Lianna will return home when medically cleared for discharge, undetermined whether she will have new orders for home O2 at this time. CM will continue to follow. She will transport via private vehicle with her , Eloy.
--- NOTE | 2018-10-11 09:57 | CMPROGNOTE_ITS ---
Care Management Progress Note S/O: Lianna was sitting up in her chair readying for lunch when CM met with her. She reported feeling she was improving though described a failed room air trial attempt; and spoke to how scared she was when she became SOB on exertion. Lianna remains pleasant in interaction and shared no concerns at this time. She remains on oxygen, at 1.5L. She continues to require telemetry monitoring as well. CM will continue to follow. A: 73 y.o. female admitted to [facility] 10/05/18 for COPD exacerbation P: Lianna will return home when medically cleared for discharge, undetermined whether she will have new orders for home O2 at this time. CM will continue to follow. She will transport via private vehicle with her , Eloy.
[2018-10-11] MEDS: Levalbuterol 0.63 MG/3 ML UPD VIAL UPD (09:58)
[2018-10-11] MEDS: Normal Saline Flush 10 ML SYR IVP ×4 (10:16→23:26)
--- NOTE | 2018-10-11 12:16 | NUTRITION ---
Ms. Reynolds is on a heart healthy nutrition therapy. Her intake is fair. Her weight has been stable this admission. Her BMI is 19 kg/m2 which is WNL for her age. Ms. Reynolds tends to order foods that are high in sodium. We modify her food choices (change the portion size or change the food to something similar) to best meet her satisfaction so that she will eat.
--- NOTE | 2018-10-11 13:05 | W.PM.PROGNOT ---
Date of Service Date of service: 10/11/18 Time of Service: 13:05 Assessment and Plan (1) COPD exacerbation: Current visit: Yes Status: Acute In setting of underlying pneumonia. Continue antibiotic therapy, and begin titration of steroids - will likely require a prolonged steroid course. Also on nebulizer therapy with Duonebs and Budesonide. (2) Pneumonia: Current visit: No Status: Acute Continue current regimen of PIP-Tazo and azithromycin, currently day#6. Continue management of concurrent COPD exacerbation as above. (3) Chest pain: Current visit: Yes Status: Acute Appearance of chest pain and elevated troponin as high as 1.75, which down-trended quickly to 0.33 with treatment. This occurred in the setting of acute illness with concurrent COPD exacerbation, underlying pneumonia, hypoxia, and tachycardia. Subsequent EKG was obtained and nonischemic, the patient has remained asymptomatic. This very likely represents demand ischemia. Will benefit from stress testing at some point in the future when current illness has resolved. Echo also checked and without evidence of CHF or wall motion abnormalities. Heparin gtt discontinued after 48 hours. Continue daily aspirin, high potency statin, and clopidogrel. Titrate BB therapy as well. (4) Peripheral vascular disease: Current visit: No Status: Chronic Currently on antiplatelet therapy with both aspirin and clopidogrel, beta-mary therapy, and high-dose high potency statin. Consider addition of QUANG inhibitor in the future as well. (5) Nodule of right lung: Current visit: No Status: Chronic According to the patient this has been worked up in the past at [facility] and deemed to be benign - apparent failed attempt at biopsy, but with PET Scan negative (verbal report). Strong family history of lung ca. Current nodule appears to be stable since imaging from the end of July of this year. Continue to monitor and follow-up as an outpatient. (6) Hyperlipidemia: Current visit: No Status: Chronic Continue high potency statin therapy. (7) Essential hypertension: Current visit: No Status: Chronic Slightly hypertensive. Continue to titrate beta-mary, and consider addition of QUANG inhibitor in the future. (8) DVT prophylaxis: Current visit: Yes Status: Acute Continue enoxaparin. Also on PPI therapy for GI prophylaxis. Subjective Interval history since last seen: 73 year old woman with a prior history of tobacco use, admitted from [facility] Emergency Department with a diagnosis of Pneumonia with concurrent COPD exacerbation. Mrs. Reynolds has a prior history significant for carotid artery disease, PVD, dyslipidemia, and hypertension. She is also a current active daily smoker, with a history of upwards of 3 packs/day of smoking, and very likely underlying COPD. She presented to the ED with a 10-day history of cough, low-grade fever, and worsening dyspnea. Workup included negative flu, elevated lactate, and a CT of the chest that was negative for PE, but demonstrated bronchiectasis and mild opacities in the left lower lobe represented pneumonia versus atelectasis. She was also noted to have a stable appearing spiculated RUL 9 mm pleural-based nodule (stable when compared to CT from late July of this year). She was admitted, initiated on antibiotic therapy, IV steroids, and aggressive nebs. Shortly after admission Mrs. An develops onset of chest pain, with subsequent elevation in her troponin. Her EKG was checked and negative, and her echo was essentially unremarkable with the exception of some pulmonary hypertension. She has since remained chest pain-free, and her troponin down trended nicely. Mrs. Reynolds reports improvement in her symptoms overall, but essentially unchanged since previously. Still with significant dyspnea with minimal movement. She is now either on room air or requiring minimal oxygen at rest,. No other overnight events were reported. She remains afebrile. Exam Narrative Exam Narrative: General: Patient appears comfortable, AAOX3, NAD Neck: Supple CV: Regular, nontachycardic, S1S2, No rubs, murmurs, or gallops. Pulmonary: Significantly diminished but with essentially resolved wheezing. Improved since time of admission. Mild bibasilar crackles. Abdomen: + Bowel Sounds, soft, nontender, nondistended Vascular: No lower extremity edema Psych: Normal mood and affect. Objective Objective Clinical Data: Abnormal lab results 10/11/18 10/11/18 Range/Units 06:50 06:50 Absolute Lymphocytes 0.49 L (1.2-3.4) k/cumm Carbon Dioxide 34.5 H (21.0-32.0) mmol/L BUN 25 H (7-18) mg/dL Glucose 104 H (70-100) mg/dL Vital Signs Temperature 36.7 C 10/11/18 11:40 Temperature Source Skin 10/11/18 11:40 Pulse 78 10/11/18 11:40 Pulse Rhythm Regular 10/11/18 07:41 Pulse 121 H 10/05/18 18:40 Respiratory Rate 18 10/11/18 11:40 Respiratory Effort Short of Breath 10/11/18 07:41 Respiratory Depth Normal 10/11/18 07:41 Respiratory Pattern Normal 10/11/18 07:41 Blood Pressure 121/72 10/11/18 11:40 Blood Pressure Mean 94 10/05/18 16:01 Blood Pressure Position Supine 10/05/18 11:38 Pulse Oximetry 96 10/11/18 11:40 Oxygen Delivery Method Nasal Cannula 10/11/18 11:40 Oxygen Flow Rate 1 10/11/18 11:40 Pain Level 0 10/11/18 11:40 Comment 10/11/18 11:40 Intake & Output 10/10/18 10/11/18 10/11/18 23:59 11:59 23:59 Intake Total 880 / 1680 920 / 1160 240 / 1160 Output Total 1100 / 1100 Balance 880 / 780 -180 / 60 240 / 60 Weight 50.9 kg Intake: IV 200 / 300 120 / 120 Oral 680 / 1380 800 / 1040 240 / 1040 Output: Urine 1100 / 1100 Other: Urine Color Yellow Yellow Urine Appearance Clear Comment Urine was mixed with stool, could not measure Void x1 in the bedside commode. Mixed with stool. Stool Size Moderate Stool Characteristics Soft Liquid Brown Green Voiding Methods Bedside Commode Bedside Commode Laboratory Results WBC 6.16 k/cumm (4.4-10.8) 10/11/18 06:50 RBC 4.42 m/cumm (4.00-5.20) 10/11/18 06:50 Hgb 12.8 g/dL (12.0-15.5) 10/11/18 06:50 Hct 39.3 % (36.0-46.0) 10/11/18 06:50 MCV 88.9 fL (80-95) 10/11/18 06:50 MCH 29.0 pg (27.0-33.0) 10/11/18 06:50 MCHC 32.6 g/dL (32.0-36.0) 10/11/18 06:50 RDW 12.5 % (11.7-14.6) 10/11/18 06:50 Plt Count 246 x1000/uL (130-400) 10/11/18 06:50 MPV 10.6 fL (8.0-11.0) 10/11/18 06:50 Immature Gran % See Differential 10/11/18 06:50 Neutrophils % 80.0 10/11/18 06:50 Band Neutrophils % 1.0 % 10/11/18 06:50 Lymphocytes % 8.0 10/11/18 06:50 Atypical Lymphs % 3 10/10/18 07:20 Monocytes % 8.0 10/11/18 06:50 Eosinophils % 1.0 10/11/18 06:50 Basophils % 0.0 10/11/18 06:50 Metamyelocytes % 1.0 % 10/11/18 06:50 Myelocytes % 1.0 % 10/11/18 06:50 Absolute Neutrophils 4.99 k/cumm (1.2-6.7) 10/11/18 06:50 Absolute Lymphocytes 0.49 k/cumm (1.2-3.4) L 10/11/18 06:50 Absolute Monocytes 0.49 k/cumm (0.11-0.7) 10/11/18 06:50 Absolute Eosinophils 0.06 k/cumm (0.0-0.7) 10/11/18 06:50 Absolute Basophils 0.00 k/cumm (0.0-0.2) 10/11/18 06:50 Differential Comment Manual differential 10/11/18 06:50 RBC Morphology See below 10/11/18 06:50 Polychromasia Present 10/11/18 06:50 APTT 81.1 sec (21.0-31.4) H* 10/09/18 07:15 D-Dimer 736 ng/mlFEU (<500) H 10/05/18 15:15 Sodium 142 mmol/L (136-145) 10/11/18 06:50 Potassium 4.0 mmol/L (3.5-5.1) 10/11/18 06:50 Chloride 104 mmol/L (98-107) 10/11/18 06:50 Carbon Dioxide 34.5 mmol/L (21.0-32.0) H 10/11/18 06:50 Anion Gap 3.5 mmol/L (3-11) 10/11/18 06:50 BUN 25 mg/dL (7-18) H 10/11/18 06:50 Creatinine 0.95 mg/dL (0.55-1.02) 10/11/18 06:50 Estimated GFR/1.73 m2 57.99 (mL/min/1.73m2) 10/11/18 06:50 Glucose 104 mg/dL (70-100) H 10/11/18 06:50 Lactate 1.3 mmol/l (0.6-1.4) 10/06/18 16:30 Calcium 9.3 mg/dL (8.5-10.1) 10/11/18 06:50 Magnesium 2.1 mg/dL (1.8-2.4) 10/11/18 06:50 Total Bilirubin 1.3 mg/dL (0.2-1.0) H 10/05/18 12:15 AST 35 U/L (15-37) 10/05/18 12:15 ALT 13 U/L (12-78) 10/05/18 12:15 Alkaline Phosphatase 83 U/L (46-116) 10/05/18 12:15 Troponin I 0.33 ng/mL (0.00-0.06) H* 10/08/18 09:40 Total Protein 7.7 g/dL (6.4-8.2) 10/05/18 12:15 Albumin 3.5 g/dL (3.4-5.0) 10/05/18 12:15
[2018-10-11] MEDS: Enoxaparin 40 MG/0.4 ML SYR SC (14:54)
[2018-10-11 15:29] LABS: Streptococcus Pneumoniae Ag, U Negative (Negative)
[2018-10-11] MEDS: Atorvastatin 40 MG TAB 80 MG PO (19:52)
[2018-10-12] VITALS (7 sets, daily range): BP systolic 95–134; BP diastolic 51–73; PULSE 60–64; RESP 16–20; TEMP 36.1–37.2; O2SAT 95–97
[2018-10-12] MEDS: PIPERACILLIN/TAZO 4.5 GM in Normal Saline 100 ML IVPB ×2 (01:43→09:37)
[2018-10-12] MEDS: Metoprolol 50 MG TAB PO ×3 (01:49→18:48)
[2018-10-12 07:06] LABS: Abs Immature Grans 0.14 k/cumm (0.0-0.09); Absolute Basophil Count 0.01 k/cumm (0.0-0.2); Absolute Eosinophil Count 0.01 k/cumm (0.0-0.7); Absolute Lymphocyte Count 0.51 k/cumm (1.2-3.4); Absolute Neutrophil Count 5.35 k/cumm (1.2-6.7); Basophils % 0.2; Eosinophils % 0.2; HCT 40.8 % (36.0-46.0); HGB 13.4 g/dL (12.0-15.5); Immature Grans % 2.2; Lymphocytes % 7.9; Mean Corp. HGB Concentration 32.8 g/dL (32.0-36.0); Mean Corpuscular Hemoglobin 28.9 pg (27.0-33.0); Mean Corpuscular Volume 87.9 fL (80-95); Mean Platelet Volume 10.6 fL (8.0-11.0); Monocytes % 6.2; Neutrophils % 83.3; Platelet Count 276 x1000/uL (130-400); RBC 4.64 m/cumm (4.00-5.20); RBC Distribution Width 12.6 % (11.7-14.6); White Blood Cell Count 6.42 k/cumm (4.4-10.8)
[2018-10-12 07:19] LABS: Anion Gap 4.2 mmol/L (3-11); BUN 24 mg/dL (7-18); CO2 31.8 mmol/L (21.0-32.0); CREATININE 1.01 mg/dL (0.55-1.02); Calcium 8.9 mg/dL (8.5-10.1); Chloride 104 mmol/L (98-107); Estimated GFR 54.03 (mL/min/1.73m2); Glucose 110 mg/dL (70-100); Potassium 4.1 mmol/L (3.5-5.1); Sodium 140 mmol/L (136-145)
--- NOTE | 2018-10-12 08:34 | PDOC.CMPRO ---
Care Management Progress Note S/O: Lianna remains pleasant in interaction and shared no concerns at this time. She remains on oxygen, at 1.5L and was evaluated by PT today. She continues to require telemetry monitoring as well. CM will continue to follow. A: 73 y.o. female admitted to [facility] 10/05/18 for COPD exacerbation P: Lianna will return home when medically cleared for discharge, undetermined whether she will have new orders for home O2 at this time, plan for prolonged steroid treatment upon discharge. Anticipate if requiring new orders of home O2 Lianna will have [facility] supports for RN/PT (safety eval, ?[employer], ongoing PT to maximize endurance). She is encouraged to utilize F[facility], which she has at home. CM will continue to follow. She will transport via private vehicle with her , Eloy.
[2018-10-12] MEDS: guaiFENesin 600 MG TABCR 1200 MG PO ×2 (08:46→20:27)
[2018-10-12] MEDS: Azithromycin 250 MG TAB PO (08:46)
[2018-10-12] MEDS: Cetirizine 10 MG TAB PO (08:46)
[2018-10-12] MEDS: Aspirin E.C. 81 MG TABEC PO (08:46)
[2018-10-12] MEDS: Benzonatate 200 MG CAP PO ×3 (08:46→20:27)
[2018-10-12] MEDS: Clopidogrel 75 MG TAB PO (08:47)
[2018-10-12] MEDS: Budesonide 0.5 MG/2 ML UPD VIAL UPD ×2 (08:56→20:26)
[2018-10-12] MEDS: Pantoprazole 40 MG TABCR PO (09:03)
[2018-10-12] MEDS: methylPREDNISolone SUCC 40 MG VIAL IVP ×2 (11:38→23:18)
[2018-10-12] MEDS: Normal Saline Flush 10 ML SYR IVP ×2 (11:41→23:18)
--- NOTE | 2018-10-12 12:42 | PGE_ITS ---
Date of Service Date of service: 10/12/18 Time of Service: 12:39 Assessment and Plan (1) COPD exacerbation: Current visit: Yes Status: Acute In setting of underlying pneumonia. Continue antibiotic therapy, and continue to titrate steroids as able - will likely require a prolonged steroid course. Also on nebulizer therapy with Duonebs and Budesonide. (2) Pneumonia: Current visit: No Status: Acute Conclude antibiotics today. (3) Chest pain: Current visit: Yes Status: Acute Appearance of chest pain and elevated troponin as high as 1.75, down- trended quickly to 0.33 with treatment. This occurred in the setting of acute illness with concurrent COPD exacerbation, underlying pneumonia, hypoxia, and tachycardia. Subsequent EKG was obtained and nonischemic, the patient has remained asymptomatic. This very likely represents demand ischemia. Will benefit from stress testing at some point in the future when current illness has resolved. ECHO also checked and without evidence of CHF or wall motion abnormalities. Heparin gtt discontinued after 48 hours. Continue daily aspirin, high potency statin, and clopidogrel. Titrate BB therapy as able. (4) Peripheral vascular disease: Current visit: No Status: Chronic Currently on antiplatelet therapy with both aspirin and clopidogrel, beta- mary therapy, and high-dose high potency statin. Consider addition of QUANG inhibitor in the future as well. (5) Nodule of right lung: Current visit: No Status: Chronic According to the patient this has been worked up in the past at [facility] and deemed to be benign - apparent failed attempt at biopsy, but with PET Scan negative (verbal report). Strong family history of lung ca. Current nodule appears to be stable since imaging from the end of July of this year. Continue to monitor and follow-up as an outpatient. (6) Hyperlipidemia: Current visit: No Status: Chronic Continue high potency statin therapy. (7) Essential hypertension: Current visit: No Status: Chronic Slightly hypertensive at times. Beta-mary titrated. Initiate low dose QUANG-I today. (8) DVT prophylaxis: Current visit: Yes Status: Acute Continue enoxaparin. Also on PPI therapy for GI prophylaxis. Subjective Interval history since last seen: 73 year old woman with a prior history of tobacco use, admitted from [facility] Emergency Department with a diagnosis of Pneumonia with concurrent COPD exacerbation. Mrs. Reynolds has a prior history significant for carotid artery disease, PVD, dyslipidemia, and hypertension. She is also a current active daily smoker, with a history of upwards of 3 packs/day of smoking, and very likely underlying COPD. She presented to the ED with a 10-day history of cough, low-grade fever, and worsening dyspnea. Workup included negative flu, elevated lactate, and a CT of the chest that was negative for PE, but demonstrated bronchiectasis and mild opacities in the left lower lobe represented pneumonia versus atelectasis. She was also noted to have a stable appearing spiculated RUL 9 mm pleural-based nodule (stable when compared to CT from late July of this year). She was admitted, initiated on antibiotic therapy, IV steroids, and aggressive nebs. Shortly after admission Mrs. An develops onset of chest pain, with subsequent elevation in her troponin. Her EKG was checked and negative, and her echo was essentially unremarkable with the exception of some pulmonary hypertension. She has since remained chest pain-free, and her troponin down trended nicely. Mrs. Reynolds continues to report slow progressive improvement of her symptoms. Still however with significant dyspnea with minimal movement. She is now either on room air or requiring minimal oxygen at rest. No other overnight events were reported. She remains afebrile. Exam Narrative Exam Narrative: General: Patient appears comfortable, AAOX3, NAD Neck: Supple CV: Regular, nontachycardic, S1S2, No rubs, murmurs, or gallops. Pulmonary: Significantly diminished but with essentially resolved wheezing and clear air entry. Improved since time of admission. Continued, improved left basilar crackles. Abdomen: + Bowel Sounds, soft, nontender, nondistended Vascular: No lower extremity edema Psych: Normal mood and affect. Objective Objective Clinical Data: Abnormal lab results 10/12/18 10/12/18 Range/Units 06:40 06:40 Absolute Lymphocytes 0.51 L (1.2-3.4) k/cumm BUN 24 H (7-18) mg/dL Glucose 110 H (70-100) mg/dL Vital Signs Temperature 36.5 C 10/12/18 11:50 Temperature Source Tympanic 10/12/18 11:50 Pulse 64 10/12/18 11:50 Pulse Rhythm Regular 10/12/18 09:56 Pulse 121 H 10/05/18 18:40 Respiratory Rate 18 10/12/18 11:50 Respiratory Effort 10/12/18 09:56 Respiratory Depth Shallow 10/12/18 09:56 Respiratory Pattern Tachypnea 10/12/18 09:56 Blood Pressure 100/52 L 10/12/18 11:50 Blood Pressure Mean 94 10/05/18 16:01 Blood Pressure Position Supine 10/05/18 11:38 Pulse Oximetry 95 10/12/18 11:50 Oxygen Delivery Method Nasal Cannula 10/12/18 11:50 Oxygen Flow Rate 1 10/12/18 11:50 Pain Level 0 10/12/18 08:06 Comment 10/11/18 11:40 Intake & Output 10/11/18 10/12/18 10/12/18 23:59 11:59 23:59 Intake Total 980 / 1900 350.833 / 350.833 Output Total 400 / 1500 200 / 200 Balance 580 / 400 150.833 / 150.833 Intake: IV 300 / 420 100.833 / 100.833 Oral 680 / 1480 250 / 250 Output: Urine 400 / 1500 200 / 200 Other: Urine Color Brown Yellow Urine Appearance Clear Comment mixedwith loose stools. Stool Size Moderate Stool Characteristics Soft Liquid Brown Green Voiding Methods Bedside Commode Toilet Laboratory Results WBC 6.42 k/cumm (4.4-10.8) 10/12/18 06:40 RBC 4.64 m/cumm (4.00-5.20) 10/12/18 06:40 Hgb 13.4 g/dL (12.0-15.5) 10/12/18 06:40 Hct 40.8 % (36.0-46.0) 10/12/18 06:40 MCV 87.9 fL (80-95) 10/12/18 06:40 MCH 28.9 pg (27.0-33.0) 10/12/18 06:40 MCHC 32.8 g/dL (32.0-36.0) 10/12/18 06:40 RDW 12.6 % (11.7-14.6) 10/12/18 06:40 Plt Count 276 x1000/uL (130-400) 10/12/18 06:40 MPV 10.6 fL (8.0-11.0) 10/12/18 06:40 Immature Gran % 2.2 10/12/18 06:40 Neutrophils % 83.3 10/12/18 06:40 Band Neutrophils % 1.0 % 10/11/18 06:50 Lymphocytes % 7.9 10/12/18 06:40 Atypical Lymphs % 3 10/10/18 07:20 Monocytes % 6.2 10/12/18 06:40 Eosinophils % 0.2 10/12/18 06:40 Basophils % 0.2 10/12/18 06:40 Metamyelocytes % 1.0 % 10/11/18 06:50 Myelocytes % 1.0 % 10/11/18 06:50 Absolute Neutrophils 5.35 k/cumm (1.2-6.7) 10/12/18 06:40 Absolute Lymphocytes 0.51 k/cumm (1.2-3.4) L 10/12/18 06:40 Absolute Monocytes 0.40 k/cumm (0.11-0.7) 10/12/18 06:40 Absolute Eosinophils 0.01 k/cumm (0.0-0.7) 10/12/18 06:40 Absolute Basophils 0.01 k/cumm (0.0-0.2) 10/12/18 06:40 Differential Comment Manual differential 10/11/18 06:50 RBC Morphology See below 10/11/18 06:50 Polychromasia Present 10/11/18 06:50 APTT 81.1 sec (21.0-31.4) H* 10/09/18 07:15 D-Dimer 736 ng/mlFEU (<500) H 10/05/18 15:15 Sodium 140 mmol/L (136-145) 10/12/18 06:40 Potassium 4.1 mmol/L (3.5-5.1) 10/12/18 06:40 Chloride 104 mmol/L (98-107) 10/12/18 06:40 Carbon Dioxide 31.8 mmol/L (21.0-32.0) 10/12/18 06:40 Anion Gap 4.2 mmol/L (3-11) 10/12/18 06:40 BUN 24 mg/dL (7-18) H 10/12/18 06:40 Creatinine 1.01 mg/dL (0.55-1.02) 10/12/18 06:40 Estimated GFR/1.73 m2 54.03 (mL/min/1.73m2) 10/12/18 06:40 Glucose 110 mg/dL (70-100) H 10/12/18 06:40 Lactate 1.3 mmol/l (0.6-1.4) 10/06/18 16:30 Calcium 8.9 mg/dL (8.5-10.1) 10/12/18 06:40 Magnesium 2.0 mg/dL (1.8-2.4) 10/12/18 06:40 Total Bilirubin 1.3 mg/dL (0.2-1.0) H 10/05/18 12:15 AST 35 U/L (15-37) 10/05/18 12:15 ALT 13 U/L (12-78) 10/05/18 12:15 Alkaline Phosphatase 83 U/L (46-116) 10/05/18 12:15 Troponin I 0.33 ng/mL (0.00-0.06) H* 10/08/18 09:40 Total Protein 7.7 g/dL (6.4-8.2) 10/05/18 12:15 Albumin 3.5 g/dL (3.4-5.0) 10/05/18 12:15 Ur Strep pneumoniae Ag Negative (Negative) 10/09/18 15:50
--- NOTE | 2018-10-12 13:15 | PT.INTREAT ---
Date of service: 10/12/18 Time of Service: 13:15 PT Notes Inpatient Physical Therapy Treatment Note [facility] Date: 10/12/18 PRECAUTIONS: Monitor SaO2 SUBJECTIVE: Lianna states that she has been sitting up in her chair for most of the day, that she is having decreased difficulty with breathing with activity. OBJECTIVE: PAIN: No complaints of pain BED MOBILITY/TRANSFERS Supine-sit: I Sit-supine: I Sit-stand: S Stand-sit: S GAIT Assistive Device: FWW Weight bearing: Full Assist: SBA Distance: 60' x2 VITALS: SaO2 on 1L O2 via NC: 96-98% at rest, 93-94% with gait, 90-93% with ther ex THEREX: Patient completed a supine lower extremity strengthening program, as per flow sheet. Patient complained of SOB with bilateral heel slide exercise requiring rest. ASSESSMENT: Patient tolerated session well, with minimal complaint of SOB. Patient was able to tolerate a progression in gait distance with FWW support and SBA. Patient would benefit from continued gait training as well as strengthening for improved activity tolerance. PLAN: Continue with PTs POC TREATMENT CODE/TIME: 30 minutes; 00177, [id number]
--- NOTE | 2018-10-12 13:20 | PTTR_ITS ---
Date of service: 10/12/18 Time of Service: 13:15 PT Notes Inpatient Physical Therapy Treatment Note [facility] Date: 10/12/18 PRECAUTIONS: Monitor SaO2 SUBJECTIVE: Lianna states that she has been sitting up in her chair for most of t he day, that she is having decreased difficulty with breathing with activity. OBJECTIVE: PAIN: No complaints of pain BED MOBILITY/TRANSFERS Supine-sit: I Sit-supine: I Sit-stand: S Stand-sit: S GAIT Assistive Device: FWW Weight bearing: Full Assist: SBA Distance: 60' x2 VITALS: SaO2 on 1L O2 via NC: 96-98% at rest, 93-94% with gait, 90-93% with ther ex THEREX: Patient completed a supine lower extremity strengthening program, as per flow sheet. Patient complained of SOB with bilateral heel slide exercise requiring rest. ASSESSMENT: Patient tolerated session well, with minimal complaint of SOB. Patient was able to tolerate a progression in gait distance with FWW support and SBA. Patient would benefit from continued gait training as well as strengthening for improved activity tolerance. PLAN: Continue with PTs POC TREATMENT CODE/TIME: 30 minutes; 68392, [id number]
--- NOTE | 2018-10-12 13:26 | OTIE_ITS ---
Occupational Therapy Notes Inpatient Occupational Therapy Evaluation Date: 10/12/18 Referring Doctor:Oscar Almanzar MD OT Orders: a Precautions: Standard PATIENT PROFILE/ADMITTING DIAGNOSIS: Pt is a 73 year old female was who admitted through the ER on 10/05/18 for acute exacerbation of COPD. Past Medical History: carotid artery disease, PVD, dyslipidemia, and hypertension Social History/Home Situation: Pt reports that she lives in a private home with her spouse. She reports that she is (I) in all ADLs/IADLs. She has a walk in shower and a tub/shower which she states she prefers her tub shower. She uses the toilet and does not require any (A) at baseline or at this time. Equipment owned/DME: Pt has all DME. SUBJECTIVE: Pt was sitting in chair she was agreeable to OT session and states that she is (I) with all ADLs. She just needs (A) with breathing at this time. OBJECTIVE: General Observation: O2 nasal cannual 1.5 L, telemetry, IV (R) UE Mental Status: A&Ox3 Pain: No c/o pain ROM: RUE AROM WNL L UE AROM WNL STRENGTH: RUE 4/5 throughout globally LUE 4/5 throughout globally FUNCTIONAL MOBILITY/ADLS: BATHING Performed (I) at sink prior to OT arrival DRESSING Sitting in chair Dressing UE (I) donning and doffing robe Dressing LE (I) donning and doffing socks O2 95% GROOMING Performed (I) standing at sink prior to OT arrival TOILETING Performed (I) on toilet prior to OT arrival EATING (I) BALANCE: Static sitting Normal Dynamic Sitting Normal Static Standing Good Dynamic Standing Good SPECIAL TESTS: Daily Activity Limitations Standardized Measure [facility] AM -PAC ?6 clicks? Daily Activity Inpatient Short Form: Raw score: 23 INFORMED CONSENT/EDUCATION: Pt instructed in purpose of OT Consult and plan of care. ASSESSMENT: Patient is a 73-year-old female referred to occupational therapy services with diagnosis of acute exacerbation of COPD. Patient presents with clinical signs and symptoms consistent with dx, as demonstrated by the following impairment level findings/functional limitations: decreased functional activity tolerance, decreased (I) in functional activity tolerance. AMPA score 23 Patient is assessed as a Moderate 65879 complexity based on the following: History: See Above Examination: See Above Presentation: Evolving Decision Making: [facility] 23 GOALS N/A PLAN OF CARE/TREATMENT PLAN: Discharge from skilled OT services at this time. Pt has all DMEs. DISCHARGE RECOMMENDATIONS OT recommends that pt return home when medically cleared per MD. TREATMENT TIME/MINUTES/CODES 65014, 20 minutes (10:45) Tanya Garcia OTR/L [facility]
[2018-10-12] MEDS: Enoxaparin 40 MG/0.4 ML SYR SC (13:39)
[2018-10-12] MEDS: Lisinopril 10 MG TAB PO (13:39)
--- NOTE | 2018-10-12 15:03 | PT.INIE ---
Date of service: 10/12/18 Time of Service: 09:20 PT Notes Inpatient Physical Therapy Evaluation Date: 10/12/2021 Referring Doctor: Oscar Almanzar MD PT Orders: PT CONSULT: Referral received for decreased activity tolerance from community-acquired pneumonia and COPD exacerbation Precautions: Fall. Standard. Patient Profile/Admitting Diagnosis: Patient is a 73-year-old female with chief complaints of cough, dyspnea, and hypoxemia admitted on 10/05/2018 with diagnosis of community-acquired pneumonia and COPD exacerbation. Referral today for increased mobilization, functional mobility training, education and training on activity pacing and energy conservation, gait and balance training. 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) Abnormal weight loss (Chronic 04/18/12) UPJ obstruction, acquired (Chronic) Fatigue (Resolved 06/02/16) Muscle spasms of neck (Resolved 01/29/18) Polyp of colon (Resolved) COPD (chronic obstructive pulmonary disease) Carotid artery stenosis Diverticulosis Essential hypertension Hyperlipidemia PVD (peripheral vascular disease) Tobacco dependence Surgical History History of lung biopsy (Acute ~2015) Biopsy of breast Cholecystectomy (~01/2009) Colonoscopy - MAC (03/07/16) Hysterectomy, Laproscopic (~1974) Open Carpal Tunnel release Surgery excision CIS R buttock 2008 Social History/Home Situation: Patient lives with in [place] in a ranch style house with ramp to porch and then another ramp on the porch into house entrance. States she has a flight of stairs to the basement as she has not gone down and has no intention of using basement once at home. Everything she needs is on the main floor. 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 Current Functional Limitations: Patient desaturates with activity, limited activity tolerance, benefit from use of assistive device to facilitate energy conservation. Equipment Owned/DME: Patient states that has a walker that she can use at home. Subjective: Patient states I am used to doing everything fast and that slowing down may require quite a lot of focus from her. Patient states that she has not been on oxygen before and hopes to go home without it if possible. Patient is agreeable to both PT consult and treatment session today. Objective: General Observation: Patient is seen sitting on her chair, oxygen cannula on at 1.5 L liters per minute. Breathing mildly labored. Some purplish discoloration on the skin in the proximal medial thigh on both sides noted. Mental Status: Alert and oriented x3 Pain: 0/10. ROM: Right Upper Extremity: WFL Left Upper Extremity: WFL Right Lower Extremity: WFL Left Lower Extremity: WFL Strength: Right Upper Extremity: WFL Left Upper Extremity: WFL Right Lower Extremity: Hip flexors 4+/5. Hip extensors 3+/5. Hip abductors 3+/5. Knee extensors 4+/5. Knee flexors 4+/5. Ankle plantarflexors/dorsiflexors 5/5. Left Lower Extremity: Hip flexors 4+/5. Hip extensors 3+/5. Hip abductors 3+/5. Knee extensors 4+/5 knee flexors 4+/5. Ankle plantarflexors/dorsiflexors 5/5. Sensation: Intact on BLE S to pain and pressure Bed Mobility/Transfers: Rolling supervision Supine to sit supervision Sit to supine supervision Sit to stand supervision Stand to sit supervision Bed to chair supervision Chair to bed supervision Gait: Patient was able to tolerate level surface ambulation using front-wheeled walker with CGA to and from bathroom about 15 feet x 2 with oxygen saturation ranging from 87% on room air for the first trip and 93% on room air for for the second trip when she needed to do her bowel movement. She was then able to walk about 25 feet with 93% at 2 L/min with same level of assist and was able to walk back to the same distance this time with 95% at 1 L/min. Patient reported mild dizziness when she started to make a turn back to the room which subsided once she rested on the chair. Mild dyspnea observed after walking activities which resolved with rest. No LOB noted. Balance: Static Sitting: Good Dynamic Sitting: Good Static Standing: Fair fair Dynamic Standing: Special Tests: Mobility Limitations Standardized Measure [facility]-PAC 6 clicks Basic Mobility Inpatient Short Form: Raw Score: 18 CMS Score: 47% deficit Informed Consent/Education: Patient instructed in purpose of PT consult and plan of care. Assessment: Patient is a 73 year old female referred to physical therapy services with the diagnosis of community-acquired pneumonia and COPD exacerbation. Patient presents with clinical signs and symptoms consistent with current/admitting diagnoses that have resulted to mobility limitations, gait instability, generalized weakness, and lack of motor control as demonstrated by the following impairment level findings: 1. Decreased strength to B LE major muscle groups 2. Impaired balance 3. Impaired activity tolerance 4. Dyspnea with mobility ADL performance Impairments are contributing to the following functional limitations: 1. Decreased bed mobility skills 2. Increased dependence with transfers 3. Inability to safely ambulate without oxygen supplementation, assistive device, and physical assistance 4. Increase completion time for mobility ADL performance to minimize dyspnea 5. Increased fall risk Patient is assessed as a Moderate 89785 complexity based on the following: History: Patient is a 73-year-old female admitted admitted to this facility due to community-acquired pneumonia and COPD exacerbation negatively impacting activity tolerance and mobility performance with comorbidities and past medical history as listed above Examination: Underlying impairments and functional limitations as noted above Presentation: Evolving Decision Makin moderate complexity Goals: Goals X1 week 1. Supine-Sit independent 2. Sit-Supine independent 3. Sit-Stand independent 4. Stand-Sit independent 5. Bed-Chair independent 6. Chair-Bed independent 7. Gait on level surface ambulation with use of least restrictive device for at least 300 feet without report of pain nor dyspnea 8. Independent with home exercise program 9. Balance good for static and dynamic standing Plan of Care/Treatment Plan: 1-2x/day, 7 days/week x 1 week. Plan of care has been reviewed with the CAREER REPRESENTATIVE providing the service under Physical Therapy direction. Initiate Physical Therapy intervention for strengthening, bed mobility, transfers, gait, stairs, balance training, use of assistive device. DISCHARGE RECOMMENDATIONS: Patient may benefit from the use of front wheeled walker as part of energy conservation techniques and activity pacing in order to increase activity tolerance and minimize dyspnea. May benefit from a short-term home health physical therapy services in order to assess home safety, continue with maximizing endurance through exercise progression, and facilitate a smooth transition to home. TREATMENT CODE/TIME: 07270 30 minutes, 94161 10 minutes, 58094 40 minutes beginning at 9:20 AM. Thank you for this referral. Lianne Wakefield, PT, DPT, CLT [facility]
--- NOTE | 2018-10-12 15:15 | IN_ITS ---
Date of service: 10/12/18 Time of Service: 09:20 PT Notes Inpatient Physical Therapy Evaluation Date: 10/12/2021 Referring Doctor: Oscar Almanzar MD PT Orders: PT CONSULT: Referral received for decreased activity tolerance from community-acquired pneumonia and COPD exacerbation Precautions: Fall. Standard. Patient Profile/Admitting Diagnosis: Patient is a 73-year-old female with chief complaints of cough, dyspnea, and hypoxemia admitted on 10/05/2018 with diagnosis of community-acquired pneumonia and COPD exacerbation. Referral today for increased mobilization, functional mobility training, education and training on activity pacing and energy conservation, gait and balance training. 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) Abnormal weight loss (Chronic 04/18/12) UPJ obstruction, acquired (Chronic) Fatigue (Resolved 06/02/16) Muscle spasms of neck (Resolved 01/29/18) Polyp of colon (Resolved) COPD (chronic obstructive pulmonary disease) Carotid artery stenosis Diverticulosis Essential hypertension Hyperlipidemia PVD (peripheral vascular disease) Tobacco dependence Surgical History History of lung biopsy (Acute ~2015) Biopsy of breast Cholecystectomy (~01/2009) Colonoscopy - MAC (03/07/16) Hysterectomy, Laproscopic (~1974) Open Carpal Tunnel release Surgery excision CIS R buttock 2008 Social History/Home Situation: Patient lives with in [place] in a ranch style house with ramp to porch and then another ramp on the porch into house entrance. States she has a flight of stairs to the basement as she has not gone down and has no intention of using basement once at home. Everything she needs is on the main floor. 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 Current Functional Limitations: Patient desaturates with activity, limited activity tolerance, benefit from use of assistive device to facilitate energy conservation. Equipment Owned/DME: Patient states that has a walker that she can use at home. Subjective: Patient states I am used to doing everything fast and that slowing down may require quite a lot of focus from her. Patient states that she has not been on oxygen before and hopes to go home without it if possible. Patient is agreeable to both PT consult and treatment session today. Objective: General Observation: Patient is seen sitting on her chair, oxygen cannula on at 1.5 L liters per minute. Breathing mildly labored. Some purplish discoloration on the skin in the proximal medial thigh on both sides noted. Mental Status: Alert and oriented x3 Pain: 0/10. ROM: Right Upper Extremity: WFL Left Upper Extremity: WFL Right Lower Extremity: WFL Left Lower Extremity: WFL Strength: Right Upper Extremity: WFL Left Upper Extremity: WFL Right Lower Extremity: Hip flexors 4+/5. Hip extensors 3+/5. Hip abductors 3+/5. Knee extensors 4+/5. Knee flexors 4+/5. Ankle plantarflexor s/dorsiflexors 5/5. Left Lower Extremity: Hip flexors 4+/5. Hip extensors 3+/5. Hip abductors 3+/5. Knee extensors 4+/5 knee flexors 4+/5. Ankle plantarflexors/dorsiflexors 5/5. Sensation: Intact on BLE S to pain and pressure Bed Mobility/Transfers: Rolling supervision Supine to sit supervision Sit to supine supervision Sit to stand supervision Stand to sit supervision Bed to chair supervision Chair to bed supervision Gait: Patient was able to tolerate level surface ambulation using front-wheeled walker with CGA to and from bathroom about 15 feet x 2 with oxygen saturation ranging from 87% on room air for the first trip and 93% on room air for for the second trip when she needed to do her bowel movement. She was then able to walk about 25 feet with 93% at 2 L/min with same level of assist and was able to walk back to the same distance this time with 95% at 1 L/min. Patient reported mild dizziness when she started to make a turn back to the room which subsided once she rested on the chair. Mild dyspnea observed after walking activities which resolved with rest. No LOB noted. Balance: Static Sitting: Good Dynamic Sitting: Good Static Standing: Fair fair Dynamic Standing: Special Tests: Mobility Limitations Standardized Measure [facility]-PAC 6 clicks Basic Mobility Inpatient Short Form: Raw Score: 18 CMS Score: 47% deficit Informed Consent/Education: Patient instructed in purpose of PT consult and plan of care. Assessment: Patient is a 73 year old female referred to physical therapy services with the diagnosis of community-acquired pneumonia and COPD exananya carrera. Patient presents with clinical signs and symptoms consistent with current/admitting diagnoses that have resulted to mobility limitations, gait instability, generalized weakness, and lack of motor control as demonstrated by the following impairment level findings: 1. Decreased strength to B LE major muscle groups 2. Impaired balance 3. Impaired activity tolerance 4. Dyspnea with mobility ADL performance Impairments are contributing to the following functional limitations: 1. Decreased bed mobility skills 2. Increased dependence with transfers 3. Inability to safely ambulate without oxygen supplementation, assistive device, and physical assistance 4. Increase completion time for mobility ADL performance to minimize dyspnea 5. Increased fall risk Patient is assessed as a Moderate 40371 complexity based on the following: History: Patient is a 73-year-old female admitted admitted to this facility due to community-acquired pneumonia and COPD exacerbation negatively impacting activity tolerance and mobility performance with comorbidities and past medical history as listed above Examination: Underlying impairments and functional limitations as noted above Presentation: Evolving Decision Makin moderate complexity Goals: Goals X1 week 1. Supine-Sit independent 2. Sit-Supine independent 3. Sit-Stand independent 4. Stand-Sit independent 5. Bed-Chair independent 6. Chair-Bed independent 7. Gait on level surface ambulation with use of least restrictive device for at least 300 feet without report of pain nor dyspnea 8. Independent with home exercise program 9. Balance good for static and dynamic standing Plan of Care/Treatment Plan: 1-2x/day, 7 days/week x 1 week. Plan of care has been reviewed with the WATCH MANU[employer]CT[employer]ING SUPERVISOR providing the service under Physical Therapy direction. Initiate Physical Therapy intervention for strengthening, bed mobility, transfers, gait, stairs, balance training, use of assistive device. DISCHARGE RECOMMENDATIONS: Patient may benefit from the use of front wheeled walker as part of energy conservation techniques and activity pacing in order to increase activity tolerance and minimize dyspnea. May benefit from a short-term home health physical therapy services in order to assess home safety, continue with maximizing endurance through exercise progression, and facilitate a smooth transition to home. TREATMENT CODE/TIME: 88681 30 minutes, 78443 10 minutes, 68841 40 minutes beginning at 9:20 AM. Thank you for this referral. Lianne Wakefield, PT, DPT, CLT [facility]
--- NOTE | 2018-10-12 15:41 | PT.INIE ---
Date of service: 10/12/18 Time of Service: 11:41
[2018-10-12] MEDS: Atorvastatin 40 MG TAB 80 MG PO (20:26)
[2018-10-13] VITALS (7 sets, daily range): BP systolic 106–156; BP diastolic 56–69; PULSE 57–76; RESP 19–21; TEMP 36.3–37.1; O2SAT 91–98
[2018-10-13] MEDS: Metoprolol 50 MG TAB PO ×3 (02:58→18:22)
[2018-10-13 07:24] LABS: Abs Immature Grans 0.09 k/cumm (0.0-0.09); Absolute Basophil Count 0.01 k/cumm (0.0-0.2); Absolute Eosinophil Count 0.01 k/cumm (0.0-0.7); Absolute Lymphocyte Count 0.46 k/cumm (1.2-3.4); Absolute Monocyte Count 0.49 k/cumm (0.11-0.7); Absolute Neutrophil Count 4.13 k/cumm (1.2-6.7); Basophils % 0.2; Eosinophils % 0.2; HCT 40.7 % (36.0-46.0); HGB 13.2 g/dL (12.0-15.5); Immature Grans % 1.7; Lymphocytes % 8.9; Mean Corp. HGB Concentration 32.4 g/dL (32.0-36.0); Mean Corpuscular Hemoglobin 28.6 pg (27.0-33.0); Mean Corpuscular Volume 88.3 fL (80-95); Monocytes % 9.4; Neutrophils % 79.6; Platelet Count 280 x1000/uL (130-400); RBC 4.61 m/cumm (4.00-5.20); RBC Distribution Width 12.7 % (11.7-14.6); White Blood Cell Count 5.19 k/cumm (4.4-10.8)
[2018-10-13 07:25] LABS: Anion Gap 3.9 mmol/L (3-11); BUN 30 mg/dL (7-18); CO2 32.1 mmol/L (21.0-32.0); CREATININE 0.85 mg/dL (0.55-1.02); Calcium 8.9 mg/dL (8.5-10.1); Chloride 103 mmol/L (98-107); Glucose 114 mg/dL (70-100); Magnesium 1.8 mg/dL (1.8-2.4); Potassium 3.8 mmol/L (3.5-5.1); Sodium 139 mmol/L (136-145)
[2018-10-13] MEDS: Benzonatate 200 MG CAP PO ×3 (08:37→19:54)
[2018-10-13] MEDS: Pantoprazole 40 MG TABCR PO (08:37)
[2018-10-13] MEDS: guaiFENesin 600 MG TABCR 1200 MG PO ×2 (08:37→19:54)
[2018-10-13] MEDS: Clopidogrel 75 MG TAB PO (08:37)
[2018-10-13] MEDS: Aspirin E.C. 81 MG TABEC PO (08:38)
[2018-10-13] MEDS: Cetirizine 10 MG TAB PO (08:38)
[2018-10-13 09:38] LABS: BE 7.6 mmol/L (-3-3); HCO3 31 mmol/L (22-28); pCO2 44 mmHg (34-47); pH 7.47 (7.35-7.45); pO2 58 mmHg (83-108); sO2 92 % (94-98); tCO2 28 mmol/L (22-29)
[2018-10-13 09:41] LABS: Site Right Radial
[2018-10-13 09:42] LABS: FIO2 21 %
--- NOTE | 2018-10-13 09:49 | PDOC.CMPRO ---
- If Service Date Differs Date of service: 10/13/18 Time of Service: 09:49 Care Management Progress Note S/O: Lianna ambulating with PT in the box. No change in status today. Discharge home when medically ready anticipate with oxygen pending ambulatory saturation results RT to set up home oxygen if needed prior to discharge. A: 73 y.o. female admitted to [facility] 10/05/18 for COPD exacerbation P: Lianna will have an ABG today and ambulatory pulse ox. Anticipate she will qualify for home oxygen. New home health services r/t new equipment, acute hospitalization for COPD, she will also benefit from PT and OT. She is agreeable to pulmonary rehab at [facility]. She is encouraged to utilize FWW, which she has at home. CM will continue to follow. She will transport via private vehicle with her , Eloy.
--- NOTE | 2018-10-13 09:53 | CMPROGNOTE_ITS ---
- If Service Date Differs Date of service: 10/13/18 Time of Service: 09:49 Care Management Progress Note S/O: Lianna ambulating with PT in the box. No change in status today. Discharge home when medically ready anticipate with oxygen pending ambulatory saturation results RT to set up home oxygen if needed prior to discharge. A: 73 y.o. female admitted to [facility] 10/05/18 for COPD exacerbation P: Lianna will have an ABG today and ambulatory pulse ox. Anticipate she will qualify for home oxygen. New home health services r/t new equipment, acute hospitalization for COPD, she will also benefit from PT and OT. She is agreeable to pulmonary rehab at [facility]. She is encouraged to utilize FWW, which she has at home. CM will continue to follow. She will transport via private vehicle with her , Eloy.
--- NOTE | 2018-10-13 10:40 | PT.INTREAT ---
Date of service: 10/13/18 Time of Service: 10:40 PT Notes Inpatient Physical Therapy Treatment Note [facility] Date: 10/13/18 PRECAUTIONS:Standard Supine-sit: SBA Sit-stand: SBA Stand-sit: SBA GAIT Assistive Device: FWW Weight bearing: Full Assist: SBA Distance: 65ftx4 VITALS: Resting oxygen with 1L 97% and after ambulation with 1L 91% with slight SOB. THEREX: Pt completed UE and LE ther ex as per flow sheet. ASSESSMENT: Pt tolerated today's session fairly well. Pt was somewhat fatigued after today's session. PLAN: Cont as per PT POC. TREATMENT CODE/TIME: 20 TA
[2018-10-13] MEDS: Normal Saline Flush 10 ML SYR IVP (10:57)
[2018-10-13] MEDS: Normal Saline 1,000 ML 100 ML IV ×2 (10:57→23:59)
--- NOTE | 2018-10-13 11:00 | DI.RAD_ITS ---
SYMPTOM/DIAGNOSIS: F/U PNEUMONIA PA AND LATERAL CHEST: Comparison is made with 10/05/18. The heart size is normal. The lungs are hyperinflated with emphysematous changes. No superimposed infiltrate, effusion or pulmonary edema is seen. IMPRESSION: Emphysematous changes. No acute abnormality.
[2018-10-13] MEDS: methylPREDNISolone SUCC 40 MG VIAL IVP (11:37)
--- NOTE | 2018-10-13 11:58 | DI.VRAD_ITS ---
EXAM: XR Chest, 2 Views EXAM DATE/TIME: 10/13/2018 10:44 AM CLINICAL HISTORY: 73 years old, female; Signs and symptoms; Other: Pneumonia, copd exacerbation TECHNIQUE: Imaging protocol: XR of the chest, 2 views. COMPARISON: CR XR CHEST 2V PA LATERAL 10/05/2018 12:47 PM FINDINGS: Lungs: Emphysematous changes. Improving aeration at the lung bases. Pleural space: Unremarkable. No pleural effusion. No pneumothorax. Heart/Mediastinum: Unremarkable. No cardiomegaly. Bones/joints: Unremarkable. IMPRESSION: Improving aeration at the lung bases. Dictated and Authenticated by: Hui Mccoy MD. Ordering:ULISES Suggs MD
--- NOTE | 2018-10-13 12:53 | W.PM.PROGNOT ---
Date of Service Date of service: 10/13/18 Time of Service: 13:04 Assessment and Plan (1) COPD exacerbation: Current visit: Yes Status: Acute Antibiotic course finished. Repeat CXR today with improving aeration at the lung bases. Continue to titrate steroids as able - will likely require a prolonged steroid course. Also on nebulizer therapy with Duonebs and Budesonide. (2) Pneumonia: Current visit: No Status: Acute Antibiotic course finished yesterday (3) Chest pain: Current visit: Yes Status: Acute Appearance of chest pain and elevated troponin as high as 1.75, down-trended quickly to 0.33 with treatment. This occurred in the setting of acute illness with concurrent COPD exacerbation, underlying pneumonia, hypoxia, and tachycardia. Subsequent EKG was obtained and nonischemic, the patient has remained asymptomatic. This very likely represents demand ischemia. Will benefit from stress testing at some point in the future when current illness has resolved. ECHO also checked and without evidence of CHF or wall motion abnormalities. Heparin gtt discontinued after 48 hours. Continue daily aspirin, high potency statin, and clopidogrel. Titrate BB therapy as able. (4) Peripheral vascular disease: Current visit: No Status: Chronic Currently on antiplatelet therapy with both aspirin and clopidogrel, beta-mary therapy, and high-dose high potency statin. Consider addition of QUANG inhibitor in the future as well. (5) Nodule of right lung: Current visit: No Status: Chronic According to the patient this has been worked up in the past at [facility] and deemed to be benign - apparent failed attempt at biopsy, but with PET Scan negative (verbal report). Strong family history of lung ca. Current nodule appears to be stable since imaging from the end of July of this year. Continue to monitor and follow-up as an outpatient. (6) Hyperlipidemia: Current visit: No Status: Chronic Continue high potency statin therapy. (7) Essential hypertension: Current visit: No Status: Chronic Slightly hypertensive at times. Beta-mary titrated. Initiate low dose QUANG-I today. (8) DVT prophylaxis: Current visit: Yes Status: Acute Continue enoxaparin. Also on PPI therapy for GI prophylaxis. Subjective Patient reports: feels better Interval history since last seen: 73 year old woman with a prior history of tobacco use, admitted from [facility] Emergency Department with a diagnosis of Pneumonia with concurrent COPD exacerbation. Mrs. Reynolds has a prior history significant for carotid artery disease, PVD, dyslipidemia, and hypertension. She is also a current active daily smoker, with a history of upwards of 3 packs/day of smoking, and very likely underlying COPD. She presented to the ED with a 10-day history of cough, low-grade fever, and worsening dyspnea. Workup included negative flu, elevated lactate, and a CT of the chest that was negative for PE, but demonstrated bronchiectasis and mild opacities in the left lower lobe represented pneumonia versus atelectasis. She was also noted to have a stable appearing spiculated RUL 9 mm pleural-based nodule (stable when compared to CT from late July of this year). She was admitted, initiated on antibiotic therapy, IV steroids, and aggressive nebs. Shortly after admission Mrs. An develops onset of chest pain, with subsequent elevation in her troponin. Her EKG was checked and negative, and her echo was essentially unremarkable with the exception of some pulmonary hypertension. She has since remained chest pain-free, and her troponin down trended nicely. Mrs. Reynolds continues to report slow progressive improvement of her symptoms. Still however with significant dyspnea with minimal movement. She is now either on room air or requiring minimal 1 liter of oxygen at rest. Her wheezing has subsided, but she is diminished. She does appear dry by labs and soft IVF has been initiated. Exam Narrative Exam Narrative: General: Patient appears comfortable, AAOX3, NAD Neck: Supple CV: Regular, nontachycardic, S1S2, No rubs, murmurs, or gallops. Pulmonary: Diminished lung sounds without wheezing and clear air entry. Improved since time of admission. Continued, improved left basilar crackles. Abdomen: + Bowel Sounds, soft, nontender, nondistended Vascular: No lower extremity edema Psych: Normal mood and affect. Objective Objective Clinical Data: Abnormal lab results 10/13/18 10/13/18 10/13/18 Range/Units 06:10 06:10 09:41 Absolute Lymphocytes 0.46 L (1.2-3.4) k/cumm pO2 58 L (83-108) mmHg O2 Saturation 92 L (94-98) % ABG pH 7.47 H (7.35-7.45) ABG HCO3 31 H (22-28) mmol/L ABG Base Excess 7.6 H (-3-3) mmol/L Carbon Dioxide 32.1 H (21.0-32.0) mmol/L BUN 30 H (7-18) mg/dL Glucose 114 H (70-100) mg/dL Vital Signs Temperature 36.4 C L 10/13/18 07:28 Temperature Source Tympanic 10/13/18 07:28 Pulse 72 10/13/18 07:28 Pulse Rhythm Regular 10/12/18 20:30 Pulse 121 H 10/05/18 18:40 Respiratory Rate 21 10/13/18 07:28 Respiratory Effort Non-Labored 10/12/18 20:30 Respiratory Depth Shallow 10/12/18 20:30 Respiratory Pattern Normal 10/12/18 20:30 Blood Pressure 114/69 10/13/18 07:28 Blood Pressure Mean 94 10/05/18 16:01 Blood Pressure Position Supine 10/05/18 11:38 Pulse Oximetry 92 L 10/13/18 07:28 Oxygen Delivery Method Nasal Cannula 10/13/18 07:28 Oxygen Flow Rate 1 10/13/18 07:28 Pain Level 0 10/12/18 08:06 Comment 10/12/18 23:39 Intake & Output 10/12/18 10/13/18 10/13/18 23:59 11:59 23:59 Intake Total 1234.167 / 1595.000 10 Output Total 500 / 500 Balance 1234.167 / 1395.000 -490 / -490 Intake: IV 74.167 / 185.000 Oral 1160 / 1410 Output: Urine 500 / 500 Other: Urine Color Yellow Yellow Straw Urine Appearance Clear Clear Urine Odor None Normal Comment Void x1 in the toilet. Pt. emptied hat; RN unable to visualize urine or determine urine amount. Pt. instructed to let the RN empty the hat next void so the RN can measure urine output amount. Stool Size Small Large Stool Characteristics Soft Soft Formed Formed Brown Black Voiding Methods Toilet Toilet Laboratory Results WBC 5.19 k/cumm (4.4-10.8) 10/13/18 06:10 RBC 4.61 m/cumm (4.00-5.20) 10/13/18 06:10 Hgb 13.2 g/dL (12.0-15.5) 10/13/18 06:10 Hct 40.7 % (36.0-46.0) 10/13/18 06:10 MCV 88.3 fL (80-95) 10/13/18 06:10 MCH 28.6 pg (27.0-33.0) 10/13/18 06:10 MCHC 32.4 g/dL (32.0-36.0) 10/13/18 06:10 RDW 12.7 % (11.7-14.6) 10/13/18 06:10 Plt Count 280 x1000/uL (130-400) 10/13/18 06:10 MPV 11.0 fL (8.0-11.0) 10/13/18 06:10 Immature Gran % 1.7 10/13/18 06:10 Neutrophils % 79.6 10/13/18 06:10 Band Neutrophils % 1.0 % 10/11/18 06:50 Lymphocytes % 8.9 10/13/18 06:10 Atypical Lymphs % 3 10/10/18 07:20 Monocytes % 9.4 10/13/18 06:10 Eosinophils % 0.2 10/13/18 06:10 Basophils % 0.2 10/13/18 06:10 Metamyelocytes % 1.0 % 10/11/18 06:50 Myelocytes % 1.0 % 10/11/18 06:50 Absolute Neutrophils 4.13 k/cumm (1.2-6.7) 10/13/18 06:10 Absolute Lymphocytes 0.46 k/cumm (1.2-3.4) L 10/13/18 06:10 Absolute Monocytes 0.49 k/cumm (0.11-0.7) 10/13/18 06:10 Absolute Eosinophils 0.01 k/cumm (0.0-0.7) 10/13/18 06:10 Absolute Basophils 0.01 k/cumm (0.0-0.2) 10/13/18 06:10 Differential Comment Manual differential 10/11/18 06:50 RBC Morphology See below 10/11/18 06:50 Polychromasia Present 10/11/18 06:50 APTT 81.1 sec (21.0-31.4) H* 10/09/18 07:15 D-Dimer 736 ng/mlFEU (<500) H 10/05/18 15:15 Sample Site Right radial 10/13/18 09:41 pCO2 44 mmHg (34-47) 10/13/18 09:41 pO2 58 mmHg (83-108) L 10/13/18 09:41 O2 Saturation 92 % (94-98) L 10/13/18 09:41 ABG pH 7.47 (7.35-7.45) H 10/13/18 09:41 ABG HCO3 31 mmol/L (22-28) H 10/13/18 09:41 ABG Total CO2 28 mmol/L (22-29) 10/13/18 09:41 ABG Base Excess 7.6 mmol/L (-3-3) H 10/13/18 09:41 FiO2 21 % 10/13/18 09:41 Sodium 139 mmol/L (136-145) 10/13/18 06:10 Potassium 3.8 mmol/L (3.5-5.1) 10/13/18 06:10 Chloride 103 mmol/L (98-107) 10/13/18 06:10 Carbon Dioxide 32.1 mmol/L (21.0-32.0) H 10/13/18 06:10 Anion Gap 3.9 mmol/L (3-11) 10/13/18 06:10 BUN 30 mg/dL (7-18) H 10/13/18 06:10 Creatinine 0.85 mg/dL (0.55-1.02) 10/13/18 06:10 Estimated GFR/1.73 m2 >= 60.00 (mL/min/1.73m2) 10/13/18 06:10 Glucose 114 mg/dL (70-100) H 10/13/18 06:10 Lactate 1.3 mmol/l (0.6-1.4) 10/06/18 16:30 Calcium 8.9 mg/dL (8.5-10.1) 10/13/18 06:10 Magnesium 1.8 mg/dL (1.8-2.4) 10/13/18 06:10 Total Bilirubin 1.3 mg/dL (0.2-1.0) H 10/05/18 12:15 AST 35 U/L (15-37) 10/05/18 12:15 ALT 13 U/L (12-78) 10/05/18 12:15 Alkaline Phosphatase 83 U/L (46-116) 10/05/18 12:15 Troponin I 0.33 ng/mL (0.00-0.06) H* 10/08/18 09:40 Total Protein 7.7 g/dL (6.4-8.2) 10/05/18 12:15 Albumin 3.5 g/dL (3.4-5.0) 10/05/18 12:15 Ur Strep pneumoniae Ag Negative (Negative) 10/09/18 15:50
--- NOTE | 2018-10-13 13:02 | PGE_ITS ---
Date of Service Date of service: 10/13/18 Time of Service: 13:04 Assessment and Plan (1) COPD exacerbation: Current visit: Yes Status: Acute Antibiotic course finished. Repeat CXR today with improving aeration at the lung bases. Continue to titrate steroids as able - will likely require a prolonged steroid course. Also on nebulizer therapy with Duonebs and Budesonide. (2) Pneumonia: Current visit: No Status: Acute Antibiotic course finished yesterday (3) Chest pain: Current visit: Yes Status: Acute Appearance of chest pain and elevated troponin as high as 1.75, down- trended quickly to 0.33 with treatment. This occurred in the setting of acute illness with concurrent COPD exacerbation, underlying pneumonia, hypoxia, and tachycardia. Subsequent EKG was obtained and nonischemic, the patient has remained asymptomatic. This very likely represents demand ischemia. Will benefit from stress testing at some point in the future when current illness has resolved. ECHO also checked and without evidence of CHF or wall motion abnormalities. Heparin gtt discontinued after 48 hours. Continue daily aspirin, high potency st atin, and clopidogrel. Titrate BB therapy as able. (4) Peripheral vascular disease: Current visit: No Status: Chronic Currently on antiplatelet therapy with both aspirin and clopidogrel, beta- mary therapy, and high-dose high potency statin. Consider addition of QUANG inhibitor in the future as well. (5) Nodule of right lung: Current visit: No Status: Chronic According to the patient this has been worked up in the past at [facility] and deemed to be benign - apparent failed attempt at biopsy, but with PET Scan negative (verbal report). Strong family history of lung ca. Current nodule appears to be stable since imaging from the end of July of this year. Continue to monitor and follow-up as an outpatient. (6) Hyperlipidemia: Current visit: No Status: Chronic Continue high potency statin therapy. (7) Essential hypertension: Current visit: No Status: Chronic Slightly hypertensive at times. Beta-mary titrated. Initiate low dose QUANG-I today. (8) DVT prophylaxis: Current visit: Yes Status: Acute Continue enoxaparin. Also on PPI therapy for GI prophylaxis. Subjective Patient reports: feels better Interval history since last seen: 73 year old woman with a prior history of tobacco use, admitted from [facility] Emergency Department with a diagnosis of Pneu monia with concurrent COPD exacerbation. 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 She is also a current active daily smoker, with a history of upwards of 3 packs/day of smoking, and very likely underlying COPD. She presented to the ED with a 10-day history of cough, low-grade fever, and worsening dyspnea. Workup included negative flu, elevated lactate, and a CT of the chest that was negative for PE, but demonstrated bronchiectasis and mild opacities in the left lower lobe represented pneumonia versus atelectasis. She was also noted to have a stable appearing spiculated RUL 9 mm pleural-based nodule (stable when compared to CT from late July of this year). She was admitted, initiated on antibiotic therapy, IV steroids, and aggressive nebs. Shortly after admission Mrs. An develops onset of chest pain, with subsequent elevation in her troponin. Her EKG was checked and negative, and her echo was essentially unremarkable with the exception of some pulmonary hypertension. She has since remained chest pain-free, and her troponin down trended nicely. Mrs. Reynolds continues to report slow progressive improvement of her symptoms. Still however with significant dyspnea with minimal movement. She is now either on room air or requiring minimal 1 liter of oxygen at rest. Her wheezing has subsided, but she is diminished. She does appear dry by labs and soft IVF has been initiated. Exam Narrative Exam Narrative: General: Patient appears comfortable, AAOX3, NAD Neck: Supple CV: Regular, nontachycardic, S1S2, No rubs, murmurs, or gallops. Pulmonary: Diminished lung sounds without wheezing and clear air entry. Improved since time of admission. Continued, improved left basilar crackles. Abdomen: + Bowel Sounds, soft, nontender, nondistended Vascular: No lower extremity edema Psych: Normal mood and affect. Objective Objective Clinical Data: Abnormal lab results 10/13/18 10/13/18 10/13/18 Range/Units 06:10 06:10 09:41 Absolute Lymphocytes 0.46 L (1.2-3.4) k/cumm pO2 58 L (83-108) mmHg O2 Saturation 92 L (94-98) % ABG pH 7.47 H (7.35-7.45) ABG HCO3 31 H (22-28) mmol/L ABG Base Excess 7.6 H (-3-3) mmol/L Carbon Dioxide 32.1 H (21.0-32.0) mmol/L BUN 30 H (7-18) mg/dL Glucose 114 H (70-100) mg/dL Vital Signs Temperature 36.4 C L 10/13/18 07:28 Temperature Source Tympanic 10/13/18 07:28 Pulse 72 10/13/18 07:28 Pulse Rhythm Regular 10/12/18 20:30 Pulse 121 H 10/05/18 18:40 Respiratory Rate 21 10/13/18 07:28 Respiratory Effort Non-Labored 10/12/18 20:30 Respiratory Depth Shallow 10/12/18 20:30 Respiratory Pattern Normal 10/12/18 20:30 Blood Pressure 114/69 10/13/18 07:28 Blood Pressure Mean 94 10/05/18 16:01 Blood Pressure Position Supine 10/05/18 11:38 Pulse Oximetry 92 L 10/13/18 07:28 Oxygen Delivery Method Nasal Cannula 10/13/18 07:28 Oxygen Flow Rate 1 10/13/18 07:28 Pain Level 0 10/12/18 08:06 Comment 10/12/18 23:39 Intake & Output 10/12/18 10/13/18 10/13/18 23:59 11:59 23:59 Intake Total 1234.167 / 1595.000 Output Total 500 / 500 Balance 1234.167 / 1395.000 -490 / -490 Intake: IV 74.167 / 185.000 Oral 1160 / 1410 Output: Urine 500 / 500 Other: Urine Color Yellow Yellow Straw Urine Appearance Clear Clear Urine Odor None Normal Comment Void x1 in the toilet. Pt. emptied hat; RN unable to visualize urine or determine urine amount. Pt. instructed to let the RN empty the hat next void so the RN can measure urine output amount. Stool Size Small Large Stool Characteristics Soft Soft Formed Formed Brown Black Voiding Methods Toilet Toilet Laboratory Results WBC 5.19 k/cumm (4.4-10.8) 10/13/18 06:10 RBC 4.61 m/cumm (4.00-5.20) 10/13/18 06:10 Hgb 13.2 g/dL (12.0-15.5) 10/13/18 06:10 Hct 40.7 % (36.0-46.0) 10/13/18 06:10 MCV 88.3 fL (80-95) 10/13/18 06:10 MCH 28.6 pg (27.0-33.0) 10/13/18 06:10 MCHC 32.4 g/dL (32.0-36.0) 10/13/18 06:10 RDW 12.7 % (11.7-14.6) 10/13/18 06:10 Plt Count 280 x1000/uL (130-400) 10/13/18 06:10 MPV 11.0 fL (8.0-11.0) 10/13/18 06:10 Immature Gran % 1.7 10/13/18 06:10 Neutrophils % 79.6 10/13/18 06:10 Band Neutrophils % 1.0 % 10/11/18 06:50 Lymphocytes % 8.9 10/13/18 06:10 Atypical Lymphs % 3 10/10/18 07:20 Monocytes % 9.4 10/13/18 06:10 Eosinophils % 0.2 10/13/18 06:10 Basophils % 0.2 10/13/18 06:10 Metamyelocytes % 1.0 % 10/11/18 06:50 Myelocytes % 1.0 % 10/11/18 06:50 Absolute Neutrophils 4.13 k/cumm (1.2-6.7) 10/13/18 06:10 Absolute Lymphocytes 0.46 k/cumm (1.2-3.4) L 10/13/18 06:10 Absolute Monocytes 0.49 k/cumm (0.11-0.7) 10/13/18 06:10 Absolute Eosinophils 0.01 k/cumm (0.0-0.7) 10/13/18 06:10 Absolute Basophils 0.01 k/cumm (0.0-0.2) 10/13/18 06:10 Differential Comment Manual differential 10/11/18 06:50 RBC Morphology See below 10/11/18 06:50 Polychromasia Present 10/11/18 06:50 APTT 81.1 sec (21.0-31.4) H* 10/09/18 07:15 D-Dimer 736 ng/mlFEU (<500) H 10/05/18 15:15 Sample Site Right radial 10/13/18 09:41 pCO2 44 mmHg (34-47) 10/13/18 09:41 pO2 58 mmHg (83-108) L 10/13/18 09:41 O2 Saturation 92 % (94-98) L 10/13/18 09:41 ABG pH 7.47 (7.35-7.45) H 10/13/18 09:41 ABG HCO3 31 mmol/L (22-28) H 10/13/18 09:41 ABG Total CO2 28 mmol/L (22-29) 10/13/18 09:41 ABG Base Excess 7.6 mmol/L (-3-3) H 10/13/18 09:41 FiO2 21 % 10/13/18 09:41 Sodium 139 mmol/L (136-145) 10/13/18 06:10 Potassium 3.8 mmol/L (3.5-5.1) 10/13/18 06:10 Chloride 103 mmol/L (98-107) 10/13/18 06:10 Carbon Dioxide 32.1 mmol/L (21.0-32.0) H 10/13/18 06:10 Anion Gap 3.9 mmol/L (3-11) 10/13/18 06:10 BUN 30 mg/dL (7-18) H 10/13/18 06:10 Creatinine 0.85 mg/dL (0.55-1.02) 10/13/18 06:10 Estimated GFR/1.73 m2 >= 60.00 (mL/min/1.73m2) 10/13/18 06:10 Glucose 114 mg/dL (70-100) H 10/13/18 06:10 Lactate 1.3 mmol/l (0.6-1.4) 10/06/18 16:30 Calcium 8.9 mg/dL (8.5-10.1) 10/13/18 06:10 Magnesium 1.8 mg/dL (1.8-2.4) 10/13/18 06:10 Total Bilirubin 1.3 mg/dL (0.2-1.0) H 10/05/18 12:15 AST 35 U/L (15-37) 10/05/18 12:15 ALT 13 U/L (12-78) 10/05/18 12:15 Alkaline Phosphatase 83 U/L (46-116) 10/05/18 12:15 Troponin I 0.33 ng/mL (0.00-0.06) H* 10/08/18 09:40 Total Protein 7.7 g/dL (6.4-8.2) 10/05/18 12:15 Albumin 3.5 g/dL (3.4-5.0) 10/05/18 12:15 Ur Strep pneumoniae Ag Negative (Negative) 10/09/18 15:50
[2018-10-13] MEDS: Lisinopril 10 MG TAB PO (14:34)
[2018-10-13] MEDS: Enoxaparin 40 MG/0.4 ML SYR SC (14:34)
[2018-10-13] MEDS: Atorvastatin 40 MG TAB 80 MG PO (19:54)
[2018-10-13] MEDS: Budesonide 0.5 MG/2 ML UPD VIAL UPD (19:54)
[2018-10-14] MEDS: Normal Saline Flush 10 ML SYR IVP ×2 (00:01→10:33)
[2018-10-14] MEDS: methylPREDNISolone SUCC 40 MG VIAL IVP (00:02)
[2018-10-14 01:33] VITALS: BP 127/67; PULSE 61; RESP 20; TEMP 36.4; O2SAT 96
[2018-10-14] MEDS: Metoprolol 50 MG TAB PO ×3 (01:33→17:21)
--- NOTE | 2018-10-14 07:32 | W.SPEECHNOTE ---
Date of service: 10/14/18 Time of Service: 07:15 Speech Therapy Visit Note Note: Attempted to do a swallow eval as ordered on 10/13/18 by Corazon Terry NP. However, pt declines eval saying she has no problem swallowing. She takes her chairside water mug with the large straw to show me how she can drink water. She shows good bolus control & posterior oral transit; no kemi s/s aspiration/penetration with consecutive swallows by straw; oral clearance 100%; no oral escape. She states she will let the nurses know if she has any difficulty in the future. Consequently, no formal swallow eval is done today.
[2018-10-14] MEDS: Benzonatate 200 MG CAP PO ×3 (07:44→20:14)
[2018-10-14] MEDS: Clopidogrel 75 MG TAB PO (07:44)
[2018-10-14] MEDS: Famotidine 20 MG TAB PO (07:44)
[2018-10-14] MEDS: guaiFENesin 600 MG TABCR 1200 MG PO ×2 (07:44→20:14)
[2018-10-14] MEDS: Aspirin E.C. 81 MG TABEC PO (07:44)
[2018-10-14] MEDS: Cetirizine 10 MG TAB PO (07:44)
[2018-10-14 08:00] VITALS: BP 130/69; PULSE 58; RESP 19; TEMP 36.4; O2SAT 96
[2018-10-14 08:23] LABS: Abs Immature Grans 0.08 k/cumm (0.0-0.09); Absolute Eosinophil Count 0.01 k/cumm (0.0-0.7); Absolute Lymphocyte Count 0.48 k/cumm (1.2-3.4); Absolute Monocyte Count 0.28 k/cumm (0.11-0.7); Absolute Neutrophil Count 4.87 k/cumm (1.2-6.7); Eosinophils % 0.2; HCT 44.5 % (36.0-46.0); HGB 14.4 g/dL (12.0-15.5); Immature Grans % 1.4; Lymphocytes % 8.4; Mean Corp. HGB Concentration 32.4 g/dL (32.0-36.0); Mean Corpuscular Hemoglobin 28.6 pg (27.0-33.0); Mean Corpuscular Volume 88.3 fL (80-95); Mean Platelet Volume 11.1 fL (8.0-11.0); Monocytes % 4.9; Neutrophils % 85.1; Platelet Count 255 x1000/uL (130-400); RBC 5.04 m/cumm (4.00-5.20); White Blood Cell Count 5.72 k/cumm (4.4-10.8)
[2018-10-14 08:27] LABS: Anion Gap 5.1 mmol/L (3-11); BUN 27 mg/dL (7-18); CO2 31.9 mmol/L (21.0-32.0); CREATININE 0.84 mg/dL (0.55-1.02); Calcium 8.9 mg/dL (8.5-10.1); Chloride 105 mmol/L (98-107); Glucose 120 mg/dL (70-100); Potassium 4.3 mmol/L (3.5-5.1); Sodium 142 mmol/L (136-145)
[2018-10-14 08:28] LABS: Magnesium 1.9 mg/dL (1.8-2.4)
[2018-10-14] MEDS: predniSONE 20 MG TAB 40 MG PO (10:33)
[2018-10-14] MEDS: Budesonide/Formoterol 160/4.5 6 GM 60 PUFF INH IH ×2 (11:00→20:16)
--- NOTE | 2018-10-14 11:04 | PT.INTREAT ---
Date of service: 10/14/18 Time of Service: 10:40 PT Notes Inpatient Physical Therapy Treatment Note [facility] Date: 10/14/18 PRECAUTIONS: Standard SUBJECTIVE: Pt reports that she just got back from showering not too long ago and she is fatigued from that. OBJECTIVE: Sit-stand: SBA Stand-sit: SBA GAIT Assistive Device: FWW Weight bearing: Full Assist: SBA Distance: 65ftx2 Pt did have to walk slowly due to SOB today THEREX: Pt completed UE and LE ther ex as per flow sheet. ASSESSMENT: Pt tolerated today's session well. It seemed pt was more fatigued most likely from walking to and taking a shower just before PT. PLAN: Cont as per PT POC. TREATMENT CODE/TIME: 10:2279 (40) TA
[2018-10-14 11:30] LABS: BE (Venous) 6.6 mmol/L (-3-3); HCO3 (Venous) 32 mmol/L (22-28); O2 Sat (Venous) 45 % (70-80); TCO2 (Venous) 29 mmol/L (22-29); pCO2 (Venous) 58 mm/Hg (34-47); pH (Venous) 7.35 (7.32-7.43); pO2 (Venous) 25 mm/Hg (28-44)
[2018-10-14 11:38] VITALS: BP 114/61; PULSE 53; RESP 18; TEMP 36.5; O2SAT 98
--- NOTE | 2018-10-14 12:17 | PGE_ITS ---
Date of Service Date of service: 10/14/18 Time of Service: 15:06 Assessment and Plan (1) COPD exacerbation: Start date: 10/14/18 Start time: 12:08 Current visit: Yes Status: Acute Repeat CXR yesterday with improving aeration at the lung bases. Continue to titrate steroids switched from IV to PO today will likely require a prolonged steroid course. Also on nebulizer therapy with Duonebs and symbicort, lung sounds diminished no wheezing or rhonchi, does have SOB with excertion, likely will require oxygen upon discharge; exercise oximetry in process at this time. RT to set up for home if needed. 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 (2) Pneumonia: Start date: 10/14/18 Start time: 12:09 Current visit: No Status: Acute Resolved (3) Peripheral vascular disease: Start date: 10/14/18 Start time: 12:11 Current visit: No Status: Chronic Currently on antiplatelet therapy with both aspirin and clopidogrel, beta- mary therapy, and high-dose high potency statin. Consider addition of QUANG inhibitor in the future as well. (4) Hyperlipidemia: Start date: 10/14/18 Start time: 12:12 Current visit: No Status: Chronic Continue high potency statin therapy. (5) Essential hypertension: Start date: 10/14/18 Start time: 12:12 Current visit: No Status: Chronic Blood pressure appear to be more stable with lisionpril and metoprolol. Continue dose and follow up as outpatient for monitoring and dose adjustments. (6) DVT prophylaxis: Start date: 10/14/18 Start time: 12:14 Current visit: Yes Status: Acute Continue enoxaparin. Also on PPI therapy for GI prophylaxis. (7) Oxygen dependent: Start date: 10/14/18 Start time: 12:14 Current visit: Yes Status: Acute Exercise oximetry reveals patient will require oxygen, unable to ambulate without declining oxygen level becomes SOB with saturation of Subjective Patient reports: feels better Interval history since last seen: 73 year old woman with a prior history of tobacco use, admitted from [facility] Emergency Department with a diagnosis of Pneumonia with concurrent COPD exacerbation. Mrs. Reynolds has a prior history significant for carotid artery disease, PVD, dyslipidemia, and hypertension. She is also a current active daily smoker, with a history of upwards of 3 packs/day of smoking, and very likely underlying COPD. She presented to the ED with a 10-day history of cough, low-grade fever, and worsening dyspnea. Workup included negative flu, elevated lactate, and a CT of the chest that was negative for PE, but demonstrated bronchiectasis and mild opacities in the left lower lobe represented pneumonia versus atelectasis. She was also noted to have a stable appearing spiculated RUL 9 mm pleural-based nodule (stable when compared to CT from late July of this year). She was admitted, initiated on antibiotic therapy, IV steroids, and aggressive nebs. Shortly after admission Mrs. An develops onset of chest pain, with subsequent elevation in her troponin. Her EKG was checked and negative, and her echo was essentially unremarkable with the exception of some pulmonary hypertension. She has since remained chest pain-free, and her troponin down trended nicely. Her pneumonia has resolved and she is sounding and feeling better. Her lung sounds are diminished without rhonchi, wheezing or harsh sound. She does desat of oxygen when ambulating and becomes easily SOB and fatigued with excertion. She has been afebrile, WBC count normal. She looks well enough to be discharged tomorrow. She will need a long steroid taper and follow up as outpatient for PFTs, Pulmonology, Sleep study, Stress test. Given her oxygen needs when ambulating she will likely require oxygen at home for low saturation levels. Exercise oximetry in process. This will be set up by respiratory. Exam Narrative Exam Narrative: General: Patient appears comfortable, AAOX3, NAD Neck: Supple CV: Regular, nontachycardic, S1S2, No rubs, murmurs, or gallops. Pulmonary: Diminished lung sounds without wheezing and clear air entry. Improved since time of admission. Abdomen: + Bowel Sounds, soft, nontender, nondistended Vascular: No lower extremity edema Psych: Normal mood and affect. Objective Objective Clinical Data: Abnormal lab results 10/14/18 10/14/18 10/14/18 Range/Units 08:05 08:10 11:25 MPV 11.1 H (8.0-11.0) fL Absolute Lymphocytes 0.48 L (1.2-3.4) k/cumm VBG pCO2 58 H (34-47) mm/Hg VBG pO2 25 L (28-44) mm/Hg VBG HCO3 32 H (22-28) mmol/L VBG O2 Saturation 45 L (70-80) % VBG Base Excess 6.6 H (-3-3) mmol/L BUN 27 H (7-18) mg/dL Glucose 120 H (70-100) mg/dL Vital Signs Temperature 36.4 C L 10/14/18 08:00 Temperature Source Tympanic 10/14/18 08:00 Pulse 58 L 10/14/18 08:00 Pulse Rhythm Regular 10/14/18 00:05 Pulse 121 H 10/05/18 18:40 Respiratory Rate 19 10/14/18 08:00 Respiratory Effort 10/14/18 00:05 Respiratory Depth Normal 10/14/18 00:05 Respiratory Pattern Normal 10/14/18 00:05 Blood Pressure 130/69 10/14/18 08:00 Blood Pressure Mean 94 10/05/18 16:01 Blood Pressure Position Supine 10/05/18 11:38 Pulse Oximetry 96 10/14/18 08:00 Oxygen Delivery Method Nasal Cannula 10/14/18 08:00 Oxygen Flow Rate 1 10/14/18 08:00 Pain Level 0 10/14/18 01:33 Comment 10/12/18 23:39 Intake & Output 10/13/18 10/14/18 10/14/18 23:59 11:59 23:59 Intake Total 1500.000 / 1750.000 350 / 350 Output Total 400 / 900 Balance 1100.000 / 850.000 350 / 350 Intake: IV 1020.000 / 1030.000 Oral 480 / 720 350 / 350 Output: Urine 400 / 900 Other: Urine Color Yellow Urine Appearance Clear Clear Stool Size Moderate Stool Characteristics Soft Liquid Voiding Methods Toilet Laboratory Results WBC 5.72 k/cumm (4.4-10.8) 10/14/18 08:05 RBC 5.04 m/cumm (4.00-5.20) 10/14/18 08:05 Hgb 14.4 g/dL (12.0-15.5) 10/14/18 08:05 Hct 44.5 % (36.0-46.0) 10/14/18 08:05 MCV 88.3 fL (80-95) 10/14/18 08:05 MCH 28.6 pg (27.0-33.0) 10/14/18 08:05 MCHC 32.4 g/dL (32.0-36.0) 10/14/18 08:05 RDW 13.0 % (11.7-14.6) 10/14/18 08:05 Plt Count 255 x1000/uL (130-400) 10/14/18 08:05 MPV 11.1 fL (8.0-11.0) H 10/14/18 08:05 Immature Gran % 1.4 10/14/18 08:05 Neutrophils % 85.1 10/14/18 08:05 Band Neutrophils % 1.0 % 10/11/18 06:50 Lymphocytes % 8.4 10/14/18 08:05 Atypical Lymphs % 3 10/10/18 07:20 Monocytes % 4.9 10/14/18 08:05 Eosinophils % 0.2 10/14/18 08:05 Basophils % 0.0 10/14/18 08:05 Metamyelocytes % 1.0 % 10/11/18 06:50 Myelocytes % 1.0 % 10/11/18 06:50 Absolute Neutrophils 4.87 k/cumm (1.2-6.7) 10/14/18 08:05 Absolute Lymphocytes 0.48 k/cumm (1.2-3.4) L 10/14/18 08:05 Absolute Monocytes 0.28 k/cumm (0.11-0.7) 10/14/18 08:05 Absolute Eosinophils 0.01 k/cumm (0.0-0.7) 10/14/18 08:05 Absolute Basophils 0.00 k/cumm (0.0-0.2) 10/14/18 08:05 Differential Comment Manual differential 10/11/18 06:50 RBC Morphology See below 10/11/18 06:50 Polychromasia Present 10/11/18 06:50 APTT 81.1 sec (21.0-31.4) H* 10/09/18 07:15 D-Dimer 736 ng/mlFEU (<500) H 10/05/18 15:15 Sample Site Right radial 10/13/18 09:41 pCO2 44 mmHg (34-47) 10/13/18 09:41 pO2 58 mmHg (83-108) L 10/13/18 09:41 O2 Saturation 92 % (94-98) L 10/13/18 09:41 ABG pH 7.47 (7.35-7.45) H 10/13/18 09:41 ABG HCO3 31 mmol/L (22-28) H 10/13/18 09:41 ABG Total CO2 28 mmol/L (22-29) 10/13/18 09:41 ABG Base Excess 7.6 mmol/L (-3-3) H 10/13/18 09:41 VBG pH 7.35 (7.32-7.43) 10/14/18 11:25 VBG pCO2 58 mm/Hg (34-47) H 10/14/18 11:25 VBG pO2 25 mm/Hg (28-44) L 10/14/18 11:25 VBG HCO3 32 mmol/L (22-28) H 10/14/18 11:25 VBG Total CO2 29 mmol/L (22-29) 10/14/18 11:25 VBG O2 Saturation 45 % (70-80) L 10/14/18 11:25 VBG Base Excess 6.6 mmol/L (-3-3) H 10/14/18 11:25 FiO2 21 % 10/13/18 09:41 Sodium 142 mmol/L (136-145) 10/14/18 08:10 Potassium 4.3 mmol/L (3.5-5.1) 10/14/18 08:10 Chloride 105 mmol/L (98-107) 10/14/18 08:10 Carbon Dioxide 31.9 mmol/L (21.0-32.0) 10/14/18 08:10 Anion Gap 5.1 mmol/L (3-11) 10/14/18 08:10 BUN 27 mg/dL (7-18) H 10/14/18 08:10 Creatinine 0.84 mg/dL (0.55-1.02) 10/14/18 08:10 Estimated GFR/1.73 m2 >= 60.00 (mL/min/1.73m2) 10/14/18 08:10 Glucose 120 mg/dL (70-100) H 10/14/18 08:10 Lactate 1.3 mmol/l (0.6-1.4) 10/06/18 16:30 Calcium 8.9 mg/dL (8.5-10.1) 10/14/18 08:10 Magnesium 1.9 mg/dL (1.8-2.4) 10/14/18 08:10 Total Bilirubin 1.3 mg/dL (0.2-1.0) H 10/05/18 12:15 AST 35 U/L (15-37) 10/05/18 12:15 ALT 13 U/L (12-78) 10/05/18 12:15 Alkaline Phosphatase 83 U/L (46-116) 10/05/18 12:15 Troponin I 0.33 ng/mL (0.00-0.06) H* 10/08/18 09:40 Total Protein 7.7 g/dL (6.4-8.2) 10/05/18 12:15 Albumin 3.5 g/dL (3.4-5.0) 10/05/18 12:15 Ur Strep pneumoniae Ag Negative (Negative) 10/09/18 15:50
[2018-10-14] MEDS: Lisinopril 10 MG TAB PO (14:29)
[2018-10-14] MEDS: Enoxaparin 40 MG/0.4 ML SYR SC (14:29)
--- NOTE | 2018-10-14 15:31 | CMPROGNOTE_ITS ---
- If Service Date Differs Date of service: 10/14/18 Time of Service: 15:29 Care Management Progress Note S/O: Lianna continues to receive IV antibiotics, steroids, and respiratory support. Anticipate she will be discharged with oxygen through DME of choice to be set up by RT. She wants to return home when she is medically ready anticipate that will be on Monday. She continues to receive PT services. Referral to home health for nursing, PT/ OT with new [id number] when medically ready for discharge. A: 73 y.o. female admitted to [facility] 10/05/18 for COPD exacerbation P: Lianna remain acute inpatient today. She will have new oxygen, and new home health services r/t new equipment, acute hospitalization for COPD, she will also benefit from PT and OT. PFT's, Network Systems Analyst, Sleep study, stress test as an outpatient an she is agreeable to pulmonary rehab at [facility]. She is encouraged to utilize FWW, which she has at home. CM will continue to follow. She will transport via private vehicle with her , Eloy.
[2018-10-14 16:09] VITALS: BP 116/71; PULSE 70; RESP 19; TEMP 36.9; O2SAT 93
[2018-10-14 16:15] VITALS: PULSE 73; PULSE 81; PULSE 83; RESP 22; RESP 24; RESP 28; O2SAT 90; O2SAT 92
[2018-10-14 19:26] VITALS: BP 116/69; PULSE 62; RESP 20; TEMP 36.9; O2SAT 93
[2018-10-14] MEDS: Atorvastatin 40 MG TAB 80 MG PO (20:14)
[2018-10-15 00:08] VITALS: BP 116/65; PULSE 62; RESP 19; TEMP 37; O2SAT 98
[2018-10-15] MEDS: Metoprolol 50 MG TAB PO ×2 (01:26→10:26)
--- NOTE | 2018-10-15 03:45 | NUR.NOTE ---
Nursing Note: Patient was anxious without O2 going on. Saturation checked was 93% at [facility]. Administered O2 at 1 L/NC as requested and slept without issues.
[2018-10-15 05:35] VITALS: BP 138/70; PULSE 73; RESP 20; TEMP 36.1; O2SAT 92
[2018-10-15 07:34] LABS: Anion Gap 7.4 mmol/L (3-11); BUN 22 mg/dL (7-18); CO2 29.6 mmol/L (21.0-32.0); CREATININE 0.73 mg/dL (0.55-1.02); Calcium 9.1 mg/dL (8.5-10.1); Chloride 108 mmol/L (98-107); Glucose 90 mg/dL (70-100); Magnesium 1.8 mg/dL (1.8-2.4); Sodium 145 mmol/L (136-145)
[2018-10-15] MEDS: Budesonide/Formoterol 160/4.5 6 GM 60 PUFF INH IH (07:39)
[2018-10-15 07:40] VITALS: BP 129/67; PULSE 60; RESP 20; TEMP 36.6; O2SAT 95; O2SAT 96
[2018-10-15 07:41] LABS: Abs Immature Grans 0.08 k/cumm (0.0-0.09); Absolute Basophil Count 0.01 k/cumm (0.0-0.2); Absolute Eosinophil Count 0.04 k/cumm (0.0-0.7); Absolute Lymphocyte Count 0.86 k/cumm (1.2-3.4); Absolute Monocyte Count 0.76 k/cumm (0.11-0.7); Absolute Neutrophil Count 3.26 k/cumm (1.2-6.7); Basophils % 0.2; Eosinophils % 0.8; HCT 41.2 % (36.0-46.0); HGB 13.2 g/dL (12.0-15.5); Immature Grans % 1.6; Lymphocytes % 17.2; Mean Corpuscular Hemoglobin 28.8 pg (27.0-33.0); Mean Platelet Volume 11.6 fL (8.0-11.0); Monocytes % 15.2; Platelet Count 223 x1000/uL (130-400); RBC 4.58 m/cumm (4.00-5.20); RBC Distribution Width 13.2 % (11.7-14.6); White Blood Cell Count 5.01 k/cumm (4.4-10.8)
[2018-10-15] MEDS: guaiFENesin 600 MG TABCR 1200 MG PO (07:49)
[2018-10-15] MEDS: Benzonatate 200 MG CAP PO ×2 (07:49→13:51)
[2018-10-15] MEDS: Clopidogrel 75 MG TAB PO (07:49)
[2018-10-15] MEDS: Cetirizine 10 MG TAB PO (07:49)
[2018-10-15] MEDS: predniSONE 20 MG TAB 40 MG PO (07:49)
[2018-10-15] MEDS: Aspirin E.C. 81 MG TABEC PO (07:49)
[2018-10-15] MEDS: Famotidine 20 MG TAB PO (07:49)
[2018-10-15 09:03] VITALS: BP 122/62; PULSE 63; RESP 20; TEMP 37.4; O2SAT 96
--- NOTE | 2018-10-15 09:06 | NUR.NOTE ---
Nursing Note: 904: pt reported to RN when obtaining VS that last evening, in the middle of the night, I had a sharp pain in my back but I forgot to tell anyone
--- NOTE | 2018-10-15 09:52 | PDOC.CMDIS ---
LACE Index Scoring Tool - Questions: Length of Stay (in days): 7 - 13 Acuity (Admit via E.D.?): Yes Comorbidities: PVD, Chronic Pulmonary Disease E.D. Visits: 1 - Answers: Total Score: 12 Risk of Readmission: High Risk Care Management Discharge Reason for Hospitalization: COPD Exacerbation Discharge Plan: Per RT and MD, Lianna is no longer requiring oxygen, and will not have new orders upon discharge. Anticipate she will follow up with her PCP, and Pulmonary Rehab at [facility] as an outpatient as well as have an outpatient stress test per MD. She is encouraged to utilize FWW, which she has at home. CM will continue to follow. She will transport via private vehicle with her , Eloy. Patient/Family Education Needs: Review of discharge instructions, discuss Ask Me Three.
--- NOTE | 2018-10-15 09:58 | CMDISCH_ITS ---
LACE Index Scoring Tool - Questions: Length of Stay (in days): 7 - 13 Acuity (Admit via E.D.?): Yes Comorbidities: PVD, Chronic Pulmonary Disease E.D. Visits: 1 - Answers: Total Score: 12 Risk of Readmission: High Risk Care Management Discharge Reason for Hospitalization: COPD Exacerbation Discharge Plan: Per RT and MD, Lianna is no longer requiring oxygen, and will not have new orders upon discharge. Anticipate she will follow up with her PCP, and Pulmonary Rehab at [facility] as an outpatient as well as have an outpatient stress test per MD. She is encouraged to utilize FWW, which she has at home. CM will continue to follow. She will transport via private vehicle with her , Eloy. Patient/Family Education Needs: Review of discharge instructions, discuss Ask Me Three.
--- NOTE | 2018-10-15 10:02 | PT.INTREAT ---
Date of service: 10/15/18 Time of Service: 10:02 PT Notes Inpatient Physical Therapy Treatment Note [facility] Date: 10/15/18 PRECAUTIONS: Fall SUBJECTIVE: Lianna states that she woke up not feeling well this morning, although she felt fine yesterday. OBJECTIVE: PAIN: No c/o pain BED MOBILITY/TRANSFERS Sit-stand: I Stand-sit: I GAIT Assistive Device: FWW Weight bearing: Full Assist: S Distance: 120' + 50' Deviation: Standing rest x1 VITALS: SaO2 on 1L O2 via NC: 97-98% with ther ex THEREX: Patient completed a seated UE and LE strengthening program, as per flow sheet. She was able to tolerate a slight progression in her program today, modifications made to reps are noted on flow sheet. ASSESSMENT: Patient tolerated session with c/o increased fatigue and c/o SOB. She was able to tolerate a progression in gait distance and ther ex today, and is demonstrating independence with transfers at this time. Patient would benefit from continued strengthening and conditioning for improved activity tolerance and cardiovascular endurance. PLAN: Continue with PT's POC TREATMENT CODE/TIME: 30 minutes; 95756, [id number]
--- NOTE | 2018-10-15 10:05 | PTTR_ITS ---
Date of service: 10/15/18 Time of Service: 10:02 PT Notes Inpatient Physical Therapy Treatment Note [facility] Date: 10/15/18 PRECAUTIONS: Fall SUBJECTIVE: Lianna states that she woke up not feeling well this morning, although she felt fine yesterday. OBJECTIVE: PAIN: No c/o pain BED MOBILITY/TRANSFERS Sit-stand: I Stand-sit: I GAIT Assistive Device: FWW Weight bearing: Full Assist: S Distance: 120' + 50' Deviation: Standing rest x1 VITALS: SaO2 on 1L O2 via NC: 97-98% with ther ex THEREX: Patient completed a seated UE and LE strengthening program, as per flow sheet. She was able to tolerate a slight progression in her program today, truong fications made to reps are noted on flow sheet. ASSESSMENT: Patient tolerated session with c/o increased fatigue and c/o SOB. She was able to tolerate a progression in gait distance and ther ex today, and is demonstrating independence with transfers at this time. Patient would benefit from continued strengthening and conditioning for improved activity tolerance and cardiovascular endurance. PLAN: Continue with PT's POC TREATMENT CODE/TIME: 30 minutes; [id number], [id number]
[2018-10-15 10:25] VITALS: BP 115/55; PULSE 63; RESP 20; TEMP 36.4; O2SAT 97
[2018-10-15 11:00] VITALS: O2SAT 95
--- NOTE | 2018-10-15 12:20 | DSE_ITS ---
Date of service: 10/15/18 Time of Service: 12:13 DS: Diagnosis Discharge Diagnosis (1) COPD exacerbation: Status: Acute (2) Pneumonia: Status: Acute (3) Peripheral vascular disease: Status: Chronic (4) Hyperlipidemia: Status: Chronic (5) Essential hypertension: Status: Chronic (6) DVT prophylaxis: Status: Acute (7) Oxygen dependent: Status: Acute Discharge Plan Disposition Patient Disposition: HOME Condition: Good Discharge Details Reason For Visit: COPD EXACERBATION Admit Date/Time: 10/05/18 17:50 Admit Provider: John Talbert Attending Provider: John Talbert Primary Care Provider: Sue Rodney Hospital Course Hospital Course: 73 year old woman with a prior history of tobacco use, admitted from [facility] Emergency Department with a diagnosis of Pneumonia with concurrent COPD exacerbation. Mrs. Reynolds has a prior history significant for carotid artery disease, PVD, dyslipidemia, and hypertension. She is also a current active daily smoker, with a history of upwards of 3 packs/day of smoking, and very likely underlying COPD. She presented to the ED with a 10-day history of cough, low-grade fever, and worsening dyspnea. Workup included negative flu, elevated lactate, and a CT of the chest that was negative for PE, but demonstrated bronchiectasis and mild opacities in the left lower lobe represented pneumonia versus atelectasis. She was also noted to have a stable appearing spiculated RUL 9 mm pleural-based nodule (stable when compared to CT from late July of this year). She was admitted, initiated on antibiotic therapy, IV steroids, and aggressive nebs. Shortly after admission Mrs. nA develops onset of chest pain, with subsequent elevation in her troponin. Her EKG was checked and negative, and her echo was essentially unremarkable with the exception of some pulmonary hypertension. She has since remained chest pain-free, and her troponin down trended nicely. Today she is ambulating with minimal Shortness of breath and oxygen saturation of 92% on RA with exercise. She does need to use pursed lip breathing when ambulating. This will be something she will need to continue doing. She will be sent home with a long taper of steroids, she will need PFT's as outpatient, sleep study, stress test, cardiology consult as out patient as well, with Pulmonary rehab recommendation. Her lungs are clear with no wheezing, rhonchi, or crackles. 1) COPD exacerbation: Antibiotic course finished. Repeat CXR today with improving aeration at the lung bases. Continue to titrate steroids as able - will likely require a prolonged steroid course. Also on nebulizer therapy with Duonebs and Budesonide. (2) Pneumonia: Antibiotic course finished yesterday (3) Chest pain: Appearance of chest pain and elevated troponin as high as 1.75, down- trended quickly to 0.33 with treatment. This occurred in the setting of acute illness with concurrent COPD exacerbation, underlying pneumonia, hypoxia, and tachycardia. Subsequent EKG was obtained and nonischemic, the patient has remained asymptomatic. This very likely represents demand ischemia. Will benefit from stress testing at some point in the future when current illness has resolved. ECHO also checked and without evidence of CHF or wall motion abnormalities. Heparin gtt discontinued after 48 hours. Continue daily aspirin, high potency statin, and clopidogrel. Titrate BB therapy as able. (4) Peripheral vascular disease: Currently on antiplatelet therapy with both aspirin and clopidogrel, beta- mary therapy, and high-dose high potency statin. Consider addition of QUANG inhibitor in the future as well. (5) Nodule of right lung: According to the patient this has been worked up in the past at [facility] and deemed to be benign - apparent failed attempt at biopsy, but with PET Scan negative (verbal report). Strong family history of lung ca. Current nodule appears to be stable since imaging from the end of July of this year. Continue to monitor and follow-up as an outpatient. (6) Hyperlipidemia: Continue high potency statin therapy. (7) Essential hypertension: Slightly hypertensive at times. Beta-mary titrated. Initiate low dose QUANG-I today. (8) DVT prophylaxis: Continue enoxaparin. Also on PPI therapy for GI prophylaxis. Home Meds and New Rx's Prescriptions: New atorvastatin [Lipitor] 40 mg Tablet 80 mg PO QPM Qty: 15 RF: 0 cetirizine 10 mg Tablet 10 mg PO DAILY Qty: 15 RF: 0 benzonatate 200 mg Capsule 200 mg PO TID Qty: 15 RF: 0 aspirin 81 mg Tablet,Delayed Release (Dr/Ec) 81 mg PO DAILY Qty: 30 RF: 0 famotidine 20 mg Tablet 20 mg PO DAILY Qty: 20 RF: 0 lisinopril 10 mg Tablet 10 mg PO Q24H Qty: 14 RF: 0 metoprolol tartrate 50 mg Tablet 50 mg PO Q8H Qty: 30 RF: 0 guaifenesin [Mucinex] 600 mg Tablet Extended Release 12hr 1,200 mg PO BID Qty: 10 RF: 0 prednisone 10 mg tablet 10 mg PO DAILY Qty: 32 RF: 0 Continued acetaminophen [Tylenol Extra Strength] 500 MG tablet 1,000 mg PO PRN RF: 0 Spiriva with HandiHaler 18 MCG capsule, w/inhalation device 18 mcg Inhalation DAILY Qty: 1 RF: 12 hydrochlorothiazide 25 mg tablet 25 mg PO DAILY Qty: 90 RF: 4 clopidogrel [Plavix] 75 mg tablet 75 mg PO DAILY Qty: 90 RF: 3 albuterol sulfate [ProAir HFA] 90 mcg/actuation HFA aerosol inhaler 2 puff Inhalation Q4H PRN Qty: 2 RF: 4 Breo Ellipta 200-25 mcg/dose Blister With Device 1 inh INHALATION DAILY RF: 0 Discontinued Atorvastatin Calcium 20 MG tablet 20 mg PO DAILY Qty: 90 RF: 4 metoprolol succinate [Toprol XL] 25 MG tablet extended release 24 hr 1.5 tab PO DAILY Qty: 135 RF: 4 No Action Space Chamber Plus 1 EACH spacer 1 ea Miscellaneous PRN Qty: 1 RF: 0 Discharge Instructions Instructions: Chest Pain (GEN), Emphysema (GEN), COPD (Chronic Obstructive Pulmonary Disease) (GEN), Community Acquired Pneumonia (GEN), How Your Lungs Work (GEN), Pulmonary Rehabilitation (GEN) Additional Instructions: Follow up with your primary doctor in one week. You have been started on a different blood pressure medication Lisinopril, take 10 mg daily and follow up with your primary for monitoring of blood pressure. Your metoprolol has been changed to 50 mg every 8 hours, DO NOT Take the extended release XL you were on prior to hospital admission. You will need follow up for Pulmonary function test. The order has been placed. You will also need a cardiology consult, stress test, sleep study. Take all of your steroid dose and take as prescribed. If you start to have worsening chest pain, shortness of breath, fever or leg swelling go to the emergency department. QUIT SMOKING !!!! Stand Alone Forms: Nursing Discharge Form Referrals: Sue Rodney NP [Primary Care Provider] - 10/22/18 1:00 pm Activity:: Activity as Tolerated Equipment/Supplies:: No Equipment Needed Diet:: As Tolerated Discharge Orders Discharge Orders: Discharge Order (Routine); Ordered 10/15/18 Ordered By: Es Terry Other Ambulatory Orders: PFT ([place]/[facility]/Volumes) (Outpt) (ONCE) Location: Determined by Patient Ordered By: Es Terry Exam Narrative Exam Narrative: General: Patient appears comfortable, AAOX3, NAD Neck: Supple CV: Regular, nontachycardic, S1S2, No rubs, murmurs, or gallops. Pulmonary: Lung sounds improved, clear with minimal diminished sounds bilateral bases Abdomen: + Bowel Sounds, soft, nontender, nondistended Vascular: No lower extremity edema Psych: Normal mood and affect. DS: Data Vitals/I&O Vitals and I&O: Vital Signs Temperature 36.4 C L 10/15/18 10:25 Temperature Source Skin 10/15/18 10:25 Pulse 63 10/15/18 10:25 Pulse Rhythm Regular 10/15/18 07:20 Pulse 121 H 10/05/18 18:40 Respiratory Rate 20 10/15/18 10:25 Respiratory Effort Non-Labored 10/15/18 07:20 Respiratory Depth Normal 10/15/18 07:20 Respiratory Pattern Normal 10/15/18 07:20 Blood Pressure 115/55 L 10/15/18 10:25 Blood Pressure Mean 94 10/05/18 16:01 Blood Pressure Position Supine 10/05/18 11:38 Pulse Oximetry 97 10/15/18 10:25 Oxygen Delivery Method Nasal Cannula 10/15/18 10:25 Oxygen Flow Rate 1 10/15/18 10:25 Pain Level 0 10/15/18 09:03 Comment 10/12/18 23:39 Intake & Output 10/14/18 10/15/18 10/15/18 23:59 11:59 23:59 Intake Total 2240 / 2830 540 / 540 Output Total 600 / 600 500 / 500 Balance 1640 / 2230 40 / 40 Intake: IV 1999 Oral 240 / 830 540 / 540 Output: Urine 600 / 600 500 / 500 Other: Urine Color Yellow Yellow Urine Appearance Clear Clear Urine Odor Normal Stool Size Moderate Stool Characteristics Soft Brown Voiding Methods Toilet Toilet Completed studies during hospitalization [Text1]: Admission Date: 10/05/18 : 1945 Age: 73 Exam(s) a RAD:XR chest 2V PA & lateral SYMPTOMS/DIAGNOSIS: SHORTNESS OF BREATH, COUGH PA AND LATERAL CHEST: Comparison is made with [id number]. The heart size is normal. There is calcification at the aortic arch. The lungs are somewhat hyperinflated. There are underlying emphysematous changes throughout. A mass is seen in the right upper lobe which measures 15 mm in diameter. IMPRESSION: Underlying emphysematous changes. Right upper lobe mass as was demonstrated on prior chest CT. There is no evidence of pneumonia. 10/05/2018 CT ANGIOGRAPHY OF THE CHEST: CT angiography was performed with multi slice acquisition and multi planar and 3D reconstruction. Routine examination was performed. There is atherosclerosis of the thoracic aorta, but no aneurysmal dilatation or dissection is present. There is no evidence of a pulmonary embolus. The heart size is within normal limits. No significant pericardial effusion is seen. Coronary artery calcifications are present. No evidence of right ventricular dysfunction is seen. No significant thoracic adenopathy, pleural effusion or pneumothorax is identified. Emphysematous changes are seen in the lungs. There is a small infiltrate seen in the left lower lobe. The 9 mm nodule in the medial aspect of the right upper lobe appears stable (series 7 image 141). There is a pleural-based nodular opacity seen in the right upper lobe. This may represent atelectasis or pneumonia. Pulmonary nodule cannot be excluded. There is patient motion artifact, particularly notable in the lower chest and upper abdomen. The patient appears to be status post cholecystectomy. There are degenerative changes seen in the spine. IMPRESSION: 1. No evidence of a pulmonary embolus, thoracic aortic dissection or aneurysm. 2. Infiltrates seen in the left lower lobe, which may represent atelectasis or pneumonia. 3. Stable 9 mm nodule in the posterior right upper lobe. 4. Pleural-based opacity in the right upper lobe. This was also present on the prior examination from 08/20/18. Echo: *STUDY CONCLUSIONS* Summary: 1. Left ventricle: The cavity size was normal. Systolic function was normal. The estimated ejection fraction was 60-65%. Diastolic parameters were normal. There was no evidence of elevated ventricular filling pressure by Doppler parameters. 2. Mitral valve: There was mild regurgitation. 3. Right ventricle: The cavity size was normal. Wall thickness was normal. Systolic function was normal. 4. Atrial septum: No defect or patent foramen ovale was identified. 5. Pulmonary arteries: Pulmonary systolic pressure was in the range of 35mm Hg to 45mm Hg. 6. Inferior vena cava: The vessel was patent and normal in size. The respirophasic diameter changes were in the normal range (greater than or equal to 50%), consistent with normal central venous pressure. 10/13/2018 10:44 AM CLINICAL HISTORY: 73 years old, female; Signs and symptoms; Other: Pneumonia, copd exacerbation TECHNIQUE: Imaging protocol: XR of the chest, 2 views. COMPARISON: CR XR CHEST 2V PA LATERAL 10/05/2018 12:47 PM FINDINGS: Lungs: Emphysematous changes. Improving aeration at the lung bases. Pleural space: Unremarkable. No pleural effusion. No pneumothorax. Heart/Mediastinum: Unremarkable. No cardiomegaly. Bones/joints: Unremarkable. IMPRESSION: Improving aeration at the lung bases. Labs on day of discharge: Labs from last 24 hours 10/15/18 10/15/18 06:30 06:30 WBC 5.01 RBC 4.58 Hgb 13.2 Hct 41.2 MCV 90.0 MCH 28.8 MCHC 32.0 RDW 13.2 Plt Count 223 MPV 11.6 H Immature Gran % 1.6 Neutrophils % 65.0 Lymphocytes % 17.2 Monocytes % 15.2 Eosinophils % 0.8 Basophils % 0.2 Absolute Neutrophils 3.26 Absolute Lymphocytes 0.86 L Absolute Monocytes 0.76 H Absolute Eosinophils 0.04 Absolute Basophils 0.01 Sodium 145 Potassium 4.0 Chloride 108 H Carbon Dioxide 29.6 Anion Gap 7.4 BUN 22 H Creatinine 0.73 Estimated GFR/1.73 m2 >= 60.00 Glucose 90 Calcium 9.1 Magnesium 1.8 [facility] Medical History Tubular adenoma (Chronic 03/07/16) Smoker (Chronic) Peripheral vascular disease (Chronic) Nodule of right lung (Chronic 07/11/16) Impaired fasting glucose (Chronic) Hyperlipidemia (Chronic) Essential hypertension (Chronic 06/24/13) Diverticulosis of colon without diverticulitis (Chronic) Chronic obstructive lung disease (Chronic) Carpal tunnel syndrome (Chronic) Carotid artery stenosis (Chronic) 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) Abnormal weight loss (Chronic 04/18/12) UPJ obstruction, acquired (Chronic) Fatigue (Resolved 06/02/16) Muscle spasms of neck (Resolved 01/29/18) Polyp of colon (Resolved) COPD (chronic obstructive pulmonary disease) Carotid artery stenosis Diverticulosis Essential hypertension Hyperlipidemia PVD (peripheral vascular disease) Tobacco dependence Surgical History History of lung biopsy (Acute ~2015) Biopsy of breast Cholecystectomy (~01/2009) Colonoscopy - MAC (03/07/16) Hysterectomy, Laproscopic (~1974) Open Carpal Tunnel release Surgery excision CIS R buttock 2008 Family History Mother Neoplasm Sister Neoplasm Father No problems noted. Sister No problems noted. Sister No problems noted. Brother Neoplasm Daughter No problems noted. Daughter No problems noted. Son No problems noted. Brother No problems noted. Social History Smoking/Tobacco Use Status: Current every day Alcohol Intake: never Drug use: Never Substance use type: does not use Do you feel safe at home: Yes Do you feel safe in your relationship?: Yes
[2018-10-15] MEDS: Lisinopril 10 MG TAB PO (13:51)
--- NOTE | 2018-10-15 15:49 | INDS_ITS ---
Date of service: 10/15/18 PT Notes Inpatient Physical Therapy Discharge Summary Dates: 10/15/2018 Dates of Service: 10/12/18 through 10/15/18 Referring Doctor: Oscar Almanzar MD PT Orders: PT CONSULT: Referral received for decreased activity tolerance from community-acquired pneumonia and COPD exacerbation Precautions: Fall. Standard. Patient Profile/Admitting Diagnosis: Patient is a 73-year-old female with chief complaints of cough, dyspnea, and hypoxemia admitted on 10/05/2018 with diagnosis of community-acquired pneumonia and COPD exacerbation. Referral today for increased mobilization, functional mobility training, education and training on activity pacing and energy conservation, gait and balance training. 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) Abnormal weight loss (Chronic 04/18/12) UPJ obstruction, acquired (Chronic) Fatigue (Resolved 06/02/16) Muscle spasms of neck (Resolved 01/29/18) Polyp of colon (Resolved) COPD (chronic obstructive pulmonary disease) Carotid artery stenosis Diverticulosis Essential hypertension Hyperlipidemia PVD (peripheral vascular disease) Tobacco dependence Surgical History History of lung biopsy (Acute ~2015) Biopsy of breast Cholecystectomy (~01/2009) Colonoscopy - MAC (03/07/16) Hysterectomy, Laproscopic (~1974) Open Carpal Tunnel release Surgery excision CIS R buttock 2008 Social History/Home Situation: Patient lives with in [place] in a ranch style house with ramp to porch and then another ramp on the porch into house entrance. States she has a flight of stairs to the basement as she has not gone down and has no intention of using basement once at home. Everything she needs is on the main floor. 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 Current Functional Limitations: Patient desaturates with activity, limited activity tolerance, benefit from use of assistive device to facilitate energy conservation. Equipment Owned/DME: Patient states that has a walker that she can use at home. This is a clinical summary of physical therapy services provided on the duration of dates listed above. No charge was done for the completion of this documentation. Subjective: NT Objective: General Observation: NT Mental Status: Alert and oriented x3 Pain: 0/10. ROM: Right Upper Extremity: WFL Left Upper Extremity: WFL Right Lower Extremity: WFL Left Lower Extremity: WFL Strength: Right Upper Extremity: WFL Left Upper Extremity: WFL Right Lower Extremity: Hip flexors 4+/5. Hip extensors 3+/5. Hip abductors 3+/5. Knee extensors 4+/5. Knee flexors 4+/5. Ankle plantarflexors/dorsiflexors 5/5. Left Lower Extremity: Hip flexors 4+/5. Hip extensors 3+/5. Hip abductors 3+/5. Knee extensors 4+/5 knee flexors 4+/5. Ankle plantarflexors/dorsiflexors 5/5. Sensation: Intact on BLE S to pain and pressure Bed Mobility/Transfers: Rolling independent Supine to sit independent Sit to supine independent n Sit to stand independent Stand to sit independent Bed to chair independent Chair to bed dependent Gait: Per ACT[employer] DIRECTORY SPECIALIST documentation this morning, patient was able to tolerate level surface ambulation using front-wheeled walker with supervision in hallway for 120 feet and 50 feet for the second trial with oxygen saturation ranging from 97-98% at 1 L of oxygen per minute. Balance: Static Sitting: Good Dynamic Sitting: Good Static Standing: Fair fair Dynamic Standing: Special Tests: Mobility Limitations Standardized Measure [facility]-PAC 6 clicks Basic Mobility Inpatient Short Form: Raw Score: 22 CMS Score: 21 % deficit Patient demonstrated an increase in raw score from 18 at start of care to 22 as of today's date. Percentage of deficit went down to 21% as of today from 47% at start of care. Assessment: Patient is a 73 year old female referred to physical therapy services with the diagnosis of community-acquired pneumonia and COPD exacerbation. Patient presents with clinical signs and symptoms consistent with current/admitting diagnoses that have resulted to mobility limitations, gait instability, generalized weakness, and lack of motor control as demonstrated by the following impairment level findings: 1. Decreased strength to B LE major muscle groups 2. Impaired balance 3. Impaired activity tolerance 4. Dyspnea with mobility ADL performance Impairments are contributing to the following functional limitations: 1. Inability to safely ambulate without oxygen supplementation, assistive device, and physical assistance 2. Increase completion time for mobility ADL performance to minimize dyspnea 3. Increased fall risk Goals: Goals X1 week 1. Supine-Sit independent MET 2. Sit-Supine independent MET 3. Sit-Stand independent MET 4. Stand-Sit independent MET 5. Bed-Chair independent MET 6. Chair-Bed independent MET 7. Gait on level surface ambulation with use of least restrictive device for at least 300 feet without report of pain nor dyspnea NOT MET 8. Independent with home exercise program MET 9. Balance good for static and dynamic standing NOT MET DISCHARGE RECOMMENDATIONS: Patient will continue to benefit from the use of front wheeled walker as part of energy conservation techniques and activity pacing in order to increase activity tolerance and minimize dyspnea. May benefit from a short-term home health physical therapy services in order to assess home safety, continue with maximizing endurance through exercise progression, and facilitate a smooth transition to home. TREATMENT CODE/TIME: N/A Thank you for this referral. Lianne Wakefield, PT, DPT, CLT [facility]
== END 2018-10-15 14:52 | disposition home or self-care (01) | DRG 190 ==
LOC: ER 17:55 → MS 19:12
PROVIDERS: Family Medicine; Internal Medicine; Nurse Practitioner Family; Admitting Provider Internal Medicine; Emergency Provider Emergency Medicine; Visit Provider Internal Medicine
DX: J44.0 Chronic obstructive pulmonary disease with (acute) lower respiratory infection (principal); J18.9 Pneumonia, unspecified organism; J47.0 Bronchiectasis with acute lower respiratory infection; K12.2 Cellulitis and abscess of mouth; J44.1 Chronic obstructive pulmonary disease with (acute) exacerbation; R09.02 Hypoxemia; I73.9 Peripheral vascular disease, unspecified; J02.9 Acute pharyngitis, unspecified; I24.8 Other forms of acute ischemic heart disease; R06.82 Tachypnea, not elsewhere classified; R91.1 Solitary pulmonary nodule; E78.5 Hyperlipidemia, unspecified; I05.1 Rheumatic mitral insufficiency; I10 Essential (primary) hypertension; F17.210 Nicotine dependence, cigarettes, uncomplicated
CPT/HCPCS: 36410; 36415; 71275; 80048; 80053; 82805; 87040; 87449; 93005; 93306; 94618; 94640; 96360; 96361; 97110; 97162; 97166; 97530; 99223; 99232; 99233; 99239; 99285; J1650; 36600; 71046; 83605; 83735; 84484; 85025; 85379; 85730; 87070; 87081; 87205; 87324; 87450; 93010; J1720; J2060; J2543; J2930; J3490; J7512; J7613; J7614; J7620; J7626

== ENCOUNTER 2018-10-24 07:39 | Outpatient (CLI) | payer MEDICARE, OTHER, SELFPAY ==
--- NOTE | 2018-10-24 07:42 | MERGEMPI_ITS ---
*[facility]* *[facility]* [address] [place] [address] Myocardial Perfusion Imaging - SPECT Regadenoson Date of study: 10/24/2018 *PATIENT PRESENTATION* Height: 175.3cm (69in) Blood Pressure: Weight: 109.1kg (240lb) BSA: 2.35m^2 Referring physician: Marvin Payne Ordering physician: Sue Rodney Impressions: Normal myocardial perfusion and contraction after pharmacological stress. Summary: 1. Myocardial perfusion imaging: No myocardial perfusion defects noted. 2. The calculated left ventricular ejection fraction after stress: 75%. LV global systolic function is normal. No left ventricular regional motion abnormality. 3. Stress ECG conclusions: The stress ECG is negative. 4. Baseline ECG: Nonspecific ST changes. Indication: RO7.9, Appropriate Use Criteria: A (Appropriate). History: REASON FOR VISIT: ADMITTED TO HOSPITAL ON 10/05/2018 FOR TREATMENT OF COMMUNITY AQUIRED PNEUMONIA AND COPD EXACERBATION. PATIENT WITH 10 DAYS OF NONPRODUCTIVE COUGH AND WORSENING DYSPNEA OVER PAST COUPLE DAYS PRIOR. CTA OF CHEST DEMONSTRATED PANLOBULAR EMPHYSEMA, BRONCHIECTASIS, AND MILD OPACITIES IN THE LEFT LOWER LOBE. 10/08/2018 ECHOCARDIOGRAM: EF 60-65%. MILD REGURGITATION MITRAL VALVE. PAST MEDICAL HISTORY: CAROTID ARTERY STENOSIS, CHRONIC OBSTRUCTIVE LUNG DISEASE, DIVERTICULOSIS, HYPERTENSION, HYPERLIPIDEMIA, NODULE OF RIGHT LUNG, NON-ST ELEVATED MYOCARDIAL INFARCTION, PERIPHERAL VASCULAR DISEASE, OXYGEN DEPENDENCY, PNEUMONIA, TOBACOO DEPENDENCE, TUBULAR ADENOMA. SMOKING STATUS: CURRENT, EVERYDAY. PT REPORTS SHE QUIT SMOKING 3 WEEKS AGO. PMH: COPD. Risk factors: Current tobacco use. Hypertension. Dyslipidemia. Cholesterol: 160mg/dl. HDL: 89mg/dl. LDL: 71mg/dl. Triglycerides: 48mg/dl. Peripheral vascular disease. ALLERGIES: TETANUS VACCINES AND TOXOID. MEDICATIONS: TIOTROPIUM BROMIDE 18 MCG CAPSULE, DAILY. PREDNISONE 10MG, DAILY. METOPROLOL TARTRATE 50MG, Q8H. LISINOPRIL 10MG, DAILY. GUAIFENESIN 1,200MG, BID. FLUTICASONE FUROATE 200MCG - VILANTEROL 20MCG/DOSE INHALATION, DAILY. FAMOTIDINE 20MG, DAILY. CLOPIDOGREL 75MG, DAILY. CETIRIZINE 10MG, DIALY. ATORVASTATIN 80MG, QPM. ASPIRIN 81MG, DAILY. ALBUTEROL SULFATE 90MCG/ACTUATION INHALER, Q4H PRN. Imaging Technique: Protocol: Regadenoson. Acquisition: Gated SPECT; 1 day - rest/stress. The patient was imaged in the supine position. Attenuation correction used. Isotope administration: - Rest. Tc[99m]-sestamibi. Dose: 10.1mCi. Injection time: 11:30 AM. Injection to stress time: 00:45. - Stress. Tc[99m]-sestamibi. Dose: 31.4mCi. 1-2 min before end of exercise Baseline ECG: SINUS BRADYCARDIA. HR [address] ELEVATIONS THROUGHOUT. Nonspecific ST changes. Stress protocol: +--------+--+ + + !Stage !HR!BP (mmHg) !Comments ! +--------+--+ + + !Baseline!48!158/72 (101)! ! +--------+--+ + + !1 min !--! !Inject Regadenoson.! +--------+--+ + + !2 min !90!170/82 (111)! ! +--------+--+ + + !4 min !75!172/74 (107)! ! +--------+--+ + + !8 min !75!152/72 (99) ! ! +--------+--+ + + * Stress results: The rate-pressure product for the peak heart rate and blood pressure was 70930pi Hg/min. Stress ECG: STRESS TEST ENDE IN 8 MINUTES & 18 SECONDS NORMAL HEART RATE AND BLOOD PRESSURE RESPONSE TO LEXISCAN INJECTION NO ECTOPY NO ANGINA NO SIGNIFICANT ST SEGMENT CHANGES. The stress ECG is negative. Myocardial perfusion: Imaging information: gated. The image quality was good. Left ventricular size is normal. No myocardial perfusion defects noted. Ventricular Function (Wall Motion): The calculated left ventricular ejection fraction after stress: 75%. LV global systolic function is normal. No left ventricular regional motion abnormality. Study data: Marvin Payne MD supervised and was readily available during the procedure. This study was interpreted by [facility]. Study status: Routine. Consent: The risks, benefits, and alternatives to the procedure were explained to the patient and informed consent was obtained. Procedure: Initial setup. A baseline ECG was recorded. Surface ECG leads and manual cuff blood pressure measurements were monitored. Heart sounds: Normal. Lung sounds: Normal. Regadenoson stress test. Stress testing was performed, with regadenoson by intravenous bolus, for a total dose of 0.4mgover 10.00sec, followed by a 5ml saline flush. The infusion was terminated due to per protocol. Study completion: All catheters inserted during the procedure were removed. The patient tolerated the procedure well and was discharged from the lab. Discharge: The patient left the laboratory in stable condition. Birthdate: Patient birthdate: 1945. Sex: Gender: female. Study date: Study date: 10/24/2018. Study time: 00:01 AM. Signature Documentation: - The imaging portion of this study was interpreted by [employer] Developer Marvin Payne MD. - The imaging portion of this study was interpreted by Nuclear Radiologist Silvio Mao MD. - The Stress ECG portion of this study was interpreted by Marvin Payne MD. Electronically signed by Marvin Payne 10/24/2018 16:12
[2018-10-24] MEDS: Regadenoson 0.4 MG/5 ML SYR IVP (12:59)
== END 2018-10-24 07:59 ==
DX: R07.9 Chest pain, unspecified (principal); I10 Essential (primary) hypertension; J44.9 Chronic obstructive pulmonary disease, unspecified; J18.9 Pneumonia, unspecified organism; R91.1 Solitary pulmonary nodule; E78.5 Hyperlipidemia, unspecified
CPT/HCPCS: 78452; 93016; 93018; 93017; J2785

== ENCOUNTER 2018-11-19 02:30 | Outpatient (CLI) | payer MEDICARE, OTHER, SELFPAY | END 2018-11-19 02:50 | DX: R69 Illness, unspecified (principal) ==

== ENCOUNTER 2018-11-19 13:24 | Outpatient (CLI) | payer MEDICARE, OTHER, SELFPAY ==
[2018-11-19 14:47] LABS: ALT 22 U/L (12-78); AST 30 U/L (15-37); Albumin 3.9 g/dL (3.4-5.0); Alkaline Phosphatase 111 U/L (46-116); Anion Gap 10.4 mmol/L (3-11); BUN 16 mg/dL (7-18); Bilirubin, Total 1.1 mg/dL (0.2-1.0); CO2 28.6 mmol/L (21.0-32.0); CREATININE 0.92 mg/dL (0.55-1.02); Calcium 9.5 mg/dL (8.5-10.1); Chloride 102 mmol/L (98-107); Glucose 91 mg/dL (70-100); Potassium 4.1 mmol/L (3.5-5.1); Sodium 141 mmol/L (136-145); Total Protein 7.1 g/dL (6.4-8.2)
== END 2018-11-19 13:44 ==
DX: I10 Essential (primary) hypertension (principal); J44.1 Chronic obstructive pulmonary disease with (acute) exacerbation; J18.9 Pneumonia, unspecified organism
CPT/HCPCS: 36415; 80053

== ENCOUNTER 2018-11-20 01:47 | Outpatient (CLI) | payer MEDICARE, OTHER, SELFPAY ==
--- NOTE | 2018-11-20 | PFT_ITS ---
PULMONARY FUNCTION TEST REPORT Patient - Lianna Reynolds [birth year] DATE OF SERVICE November 20, 2018 REQUESTING PROVIDER Sue Rodney NP INTERPRETATION OF STUDY Spirometry shows very severe obstructive airways disease with no bronchodilator response. LUNG VOLUMES - Lung volumes show no evidence of restriction. There is mild hyperinflation and air trapping. DIFFUSION CAPACITY- Very severely reduced, which is severely reduced when corrected to alveolar volume. AIRWAY RESISTANCE - Elevated. IMPRESSION Very severe obstructive airways disease with no significant bronchodilator response. This is associated with mild hyperinflation and air trapping, and very severe diffusion defect. Clinical correlation recommended. Lavern Ch M.D. Tomy DD 11/22/2018 DT - 11/22/2018
[2018-11-20] MEDS: Inhaler, Assist Device 1 EACH MC (15:03)
[2018-11-20] MEDS: Albuterol HFA 18 GM 200 PUFF INH IH (15:04)
== END 2018-11-20 02:07 ==
DX: J44.9 Chronic obstructive pulmonary disease, unspecified (principal); R06.09 Other forms of dyspnea; Z87.891 Personal history of nicotine dependence

== ENCOUNTER 2018-12-14 07:51 | Outpatient (CLI) | payer MEDICARE, OTHER, SELFPAY ==
--- NOTE | 2018-12-14 13:00 | DI.MAMMO_ITS ---
SYMPTOMS/DIAGNOSIS: SCREENING, Z12.31 BILATERAL SCREENING MAMMOGRAM: Mammograms were interpreted according to the usual protocol including computer analysis with CAD system, tomosynthesis and C view imaging. Comparison is made with exams from 2013 through 2018. The breasts are composed of heterogeneously dense fibroglandular tissue, breast density category C. No suspicious masses or suspicious microcalcifications are seen. There has been no significant change. IMPRESSION: Category 1, negative mammogram. Yearly screening mammography is recommended. [facility] ASSESSMENT OF FINDINGS: Negative. Category 1. Patient will receive a letter notifying them of these results. Bi-RADS category C. The breasts are heterogeneously dense, which may obscure small masses.
== END 2018-12-14 08:11 ==
DX: Z12.31 Encounter for screening mammogram for malignant neoplasm of breast (principal)
CPT/HCPCS: 77063; 77067

== ENCOUNTER → 2019-01-30 13:38 | Outpatient (BNVA) | payer MEDICARE, OTHER, SELFPAY | PROVIDERS: Visit Provider Student in an Organized Health Care Education/Training Program | DX: I21.4 Non-ST elevation (NSTEMI) myocardial infarction (principal); I73.9 Peripheral vascular disease, unspecified; E78.2 Mixed hyperlipidemia; I10 Essential (primary) hypertension; I65.29 Occlusion and stenosis of unspecified carotid artery; J44.9 Chronic obstructive pulmonary disease, unspecified; F17.211 Nicotine dependence, cigarettes, in remission | CPT/HCPCS: 99204; 99215 ==

== ENCOUNTER 2019-04-18 01:23 | Outpatient (CLI) | payer MEDICARE, OTHER, SELFPAY ==
--- NOTE | 2019-04-18 15:05 | DI.CT_ITS ---
EXAM: CT CHEST WO CLINICAL HISTORY: SOLITARY PULMONARY NODULE R91.1. TECHNIQUE: CT examination of the chest was performed without contrast administration. COMPARISON: CHEST WITHOUT CONTRAST from 02/13/2018 - from 10/05/2018 - from 10/05/2018 FINDINGS: Examination is compared with previous examinations of September 2018 and January 2018. Images obtained throu gh the upper abdomen show apparent right hydronephrosis, right kidney was not included on the previou s examinations and this is of uncertain age. No left hydronephrosis seen. Prior cholecystectomy noted . Previously noted pleural-based right posterior upper lobe lesion has increased in size and has more p rominent spiculation in comparison with the previous examinations; this now measures about 18 millime ters in diameter. A left basilar pleural-based intrapulmonary nodule measures about 10 millimeters in diameter, unchanged from previous studies. No additional new nodule seen. No mediastinal or hilar ad enopathy. Tracheobronchial tree is unremarkable. No pleural effusion. IMPRESSION: Increased size and increased prominence of spiculation of right apical posterior pleural-based mass. An additional satellite nodule now appears to be present measuring up to about 5 x 10 millimeters in diameter. The findings as described are suspicious for malignancy and tissue sampling should be consi dered.
== END 2019-04-18 01:43 ==
PROVIDERS: Visit Provider Nurse Practitioner
DX: R91.1 Solitary pulmonary nodule (principal); N13.30 Unspecified hydronephrosis; Z90.49 Acquired absence of other specified parts of digestive tract; R91.8 Other nonspecific abnormal finding of lung field
CPT/HCPCS: 71250

== ENCOUNTER 2019-04-19 13:53 | Outpatient (CLI) | payer MEDICARE, OTHER, SELFPAY ==
[2019-04-19 14:26] LABS: HGB 14.5 g/dL (12.0-15.5); Mean Corp. HGB Concentration 32.2 g/dL (32.0-36.0); Mean Corpuscular Hemoglobin 28.5 pg (27.0-33.0); Mean Corpuscular Volume 88.6 fL (80-95); Mean Platelet Volume 12.4 fL (8.0-11.0); Platelet Count 140 x1000/uL (130-400); RBC 5.08 m/cumm (4.00-5.20); RBC Distribution Width 13.7 % (11.7-14.6); White Blood Cell Count 4.14 k/cumm (4.4-10.8)
[2019-04-19 15:21] LABS: BUN 15 mg/dL (7-18); CREATININE 1.01 mg/dL (0.55-1.02); Estimated GFR 53.88 (mL/min/1.73m2)
[2019-04-19 15:33] LABS: Prothrombin Time 9.7 sec (9.3-11.0)
== END 2019-04-19 14:13 ==
PROVIDERS: Visit Provider Internal Medicine
DX: R91.1 Solitary pulmonary nodule (principal)
CPT/HCPCS: 36415; 80053; 84520; 85027; 82565; 85610

== ENCOUNTER 2019-04-22 09:47 | Outpatient (CLI) | payer MEDICARE, OTHER, SELFPAY | END 2019-04-22 10:07 | PROVIDERS: Visit Provider Internal Medicine | DX: R91.1 Solitary pulmonary nodule (principal); I25.2 Old myocardial infarction; F17.200 Nicotine dependence, unspecified, uncomplicated | CPT/HCPCS: 93005; 93010 ==

== ENCOUNTER 2019-06-17 03:30 | Outpatient (CLI) | payer MEDICARE, OTHER, SELFPAY ==
--- NOTE | 2019-06-17 13:09 | PFT_ITS ---
PULMONARY FUNCTION TEST REPORT DATE OF SERVICE: June 17, 2019 REQUESTING PROVIDER: Lavern Ch M.D. Spirometry shows severe obstructive airways disease with significant bronchodilator response. Lung volumes show no evidence of restriction. There is mild hyper-inflation and air trapping. Diffusion capacity severely reduced, even when corrected to alveolar volume. Airways resistance elevated. IMPRESSION: Severe obstructive airways disease with significant bronchodilator response. This is associated with mild hyper-inflation and air trapping and severe diffusion defect. Clinical correlation recommended. For lung resection purposes, the patient?s post-bronchodilator FEV1 is 0.8 liters and diffusion capacity corrected to alveolar volume is 38%. When this study was compared to previous one from 11/20/18, the patient has a 90 cc's decline in FVC and FEV1 has basically remained stable. ARELY/claudette D/
[2019-06-17] MEDS: Albuterol HFA 18 GM 200 PUFF INH IH (15:15)
[2019-06-17] MEDS: Inhaler, Assist Device 1 EACH MC (15:15)
== END 2019-06-17 03:50 ==
PROVIDERS: Visit Provider Internal Medicine
DX: C34.90 Malignant neoplasm of unspecified part of unspecified bronchus or lung (principal); J44.9 Chronic obstructive pulmonary disease, unspecified; R05 Cough; R06.09 Other forms of dyspnea; Z87.891 Personal history of nicotine dependence
CPT/HCPCS: 94060; 94150; 94726; 94729

== ENCOUNTER 2019-11-21 00:53 | Outpatient (CLI) | payer MEDICARE, SELFPAY ==
--- NOTE | 2019-11-21 12:35 | DI.CT_ITS ---
EXAM: CT CHEST WO CLINICAL HISTORY: H/O RT LUNG CA, C34.11, F/U NODULE, S/P SBRT, ASSESS FOR RESPONSE AND CHANGE TECHNIQUE: Imaging protocol: Axial computed tomography images were obtained and coronal and sagittal reformatted images were created and reviewed. COMPARISON: CT CHEST WO from 04/18/2019 FINDINGS: Tracheobronchial tree: Patent where visualized. Mediastinum and Iris: No dominant adenopathy or fluid collection. Pulmonary parenchyma: There has been no change in size of the right upper lobe pulmonary mass since . The noncalcified pulmonary nodule in the anterior aspect of the left lower lobe appears st able. No new pulmonary nodules are present. Centrilobular emphysematous changes are present in the l ungs. There is interstitial thickening seen in the right upper lobe medially. This may be due to ra diation therapy. Tumor extension cannot be excluded. No focal consolidating infiltrates are present . Pleura: No effusion or pneumothorax. Heart: The heart is not dilated. Moderate coronary artery calcifications are seen. No pericardial ef fusion is present. Aorta: Thoracic aorta non-dilated. Atherosclerosis. Upper abdomen: Status post cholecystectomy. Lymph nodes: Within normal limits. Bones:Degenerative changes are present. IMPRESSION: 1. Stable right upper lobe and left lower lobe pulmonary nodules. 2. Interstitial thickening seen in the right upper lobe medially. Differential considerations includ e response to radiation therapy, tumor extension, interstitial edema or pneumonia. Please correlate clinically. 3. Pulmonary emphysema. RADIATION DOSE DELIVERED: Total DLP Total DLP Total DLP DATA REPOSITORY: All CT scans at this facility are submitted to the National Radiology Data Registry (NRDR) Dose Index Registry (DIR) with the [employer] (ACR). RADIATION OPTIMIZATION: All CT scans at this facility use at least one of these dose optimization te chniques: automated exposure control; mA and/or kV adjustment per patient size (includes targeted exa ms where dose is matched to clinical indication); or iterative reconstruction.
== END 2019-11-21 01:13 ==
PROVIDERS: Visit Provider Radiology Radiation Oncology
DX: C34.11 Malignant neoplasm of upper lobe, right bronchus or lung (principal); J98.4 Other disorders of lung; J43.8 Other emphysema
CPT/HCPCS: 71250

== ENCOUNTER 2019-12-24 12:52 | Outpatient (CLI) | payer MEDICARE, OTHER, SELFPAY ==
--- NOTE | 2019-12-24 13:00 | DI.MAMMO_ITS ---
EXAM: MAMMO SCREENING CLINICAL HISTORY: screening, Z12.39 TECHNIQUE: Mammograms were interpreted according to the usual protocol including computer analysis w [employer] CAD system, tomosynthesis and C-view imaging. COMPARISON: FINDINGS: The breasts are heterogeneously dense. No dominant mass or clumped microcalcification is identified in either breast. Current examination is compared with multiple previous examinations including November 2018, there is question increased prominence of nodular area of focal radiodensity projected in the c entral portion of left breast on CC view. Additional mammographic views left breast are requested to evaluate this finding to include CC spot compression view of the left breast and MLO spot compressio n view of left breast. IMPRESSION: Additional mammographic views of the left breast are requested as described above. Breast ultrasound may be indicated as well depending on the results of the additional mammographic views. BI-RADS Cat 0 - Assessment Incomplete: Need additional imaging evaluation: Breast Density - Category C - Heterogeneously dense:
== END 2019-12-24 13:12 ==
DX: Z12.31 Encounter for screening mammogram for malignant neoplasm of breast (principal); R92.8 Other abnormal and inconclusive findings on diagnostic imaging of breast
CPT/HCPCS: 77063; 77067

== ENCOUNTER 2019-12-27 02:43 | Outpatient (CLI) | payer MEDICARE, OTHER, SELFPAY ==
--- NOTE | 2019-12-27 | DI.US_ITS ---
EXAM: US BREAST LT LIMITED CLINICAL HISTORY: F/U MAMMO, ? PROMINENCE FOCAL RADIODENSITY TECHNIQUE: Ultrasound performed using standard protocol. COMPARISON: US Cardiac from 10/08/2018 FINDINGS: Additional mammographic views of the left breast and left breast ultrasound are interpreted in conjun ction. These examinations were obtained to evaluate questionable area of nodularity projected in henry tral portion of left breast on recent mammogram. Additional mammographic views fail to show a discre te mass. Breast ultrasound shows no evidence of a mass or cyst. IMPRESSION: No specific evidence of malignancy at this time. Follow-up unilateral left breast mammogram recommen ded 6 months. BI-RADS Cat 3 - 6 month - Probably Benign Finding: Recommend follow-up mammography in 6 months Breast Density - Category C - Heterogeneously dense DATA REPOSITORY:
== END 2019-12-27 03:03 ==
DX: Z12.31 Encounter for screening mammogram for malignant neoplasm of breast (principal); R92.8 Other abnormal and inconclusive findings on diagnostic imaging of breast; N64.59 Other signs and symptoms in breast
CPT/HCPCS: 76642; 77063; 77067

== ENCOUNTER 2019-12-30 04:14 | Outpatient (CLI) | payer MEDICARE, OTHER, SELFPAY ==
[2019-12-30 08:56] LABS: ALT 14 U/L (14-59); AST 25 U/L (15-37); Albumin 3.9 g/dL (3.4-5.0); Alkaline Phosphatase 101 U/L (46-116); Anion Gap 11.7 mmol/L (3-11); BUN 14 mg/dL (7-18); Bilirubin, Total 1.2 mg/dL (0.2-1.0); CO2 27.3 mmol/L (21.0-32.0); CREATININE 1.07 mg/dL (0.55-1.02); Calcium 9.4 mg/dL (8.5-10.1); Chloride 104 mmol/L (98-107); Estimated GFR 50.41 (mL/min/1.73m2); Glucose 107 mg/dL (74-106); Potassium 4.6 mmol/L (3.5-5.1); Sodium 143 mmol/L (136-145)
== END 2019-12-30 04:34 ==
DX: I10 Essential (primary) hypertension (principal); I73.9 Peripheral vascular disease, unspecified; J44.9 Chronic obstructive pulmonary disease, unspecified; R63.4 Abnormal weight loss; R91.1 Solitary pulmonary nodule
CPT/HCPCS: 36415; 80053

== ENCOUNTER 2020-01-02 10:34 | Inpatient (IN) | payer MEDICARE, SELFPAY ==
[2020-01-02] VITALS (86 sets, daily range): BP systolic 76–198; BP diastolic 45–143; PULSE 64–159; RESP 10–37; TEMP 36.8–37.3; O2SAT 89–100
--- NOTE | 2020-01-02 10:45 | DI.RAD_ITS ---
EXAM: XR PORTABLE CHEST AP CLINICAL HISTORY: r/o pneumonia TECHNIQUE: 2D digital imaging was performed. COMPARISON: CR XR CHEST 2V PA LATERAL from 10/13/2018 FINDINGS: MEDIASTINUM: Normal. HEART: Normal. PULMONARY VASCULATURE: Normal. LUNGS: Left basilar atelectasis. Findings suggestive of COPD. PLEURAL SPACE: Left pneumothorax occupying approximately 25-30 percent of the left hemithorax. No pl eural effusion. BONE:Age-appropriate degenerative changes in the spine. OTHER FINDINGS:Normal. IMPRESSION: Left pneumothorax occupying approximately 25-30 percent of the left hemithorax. Findings were discussed with the emergency department on the date of the examination. DATA REPOSITORY: RADIATION DOSE DELIVERED:
--- NOTE | 2020-01-02 10:57 | ED.GENADUL_ITS ---
Discharge Plan Disposition Patient Disposition: [facility] INPATIENT Condition: Improving Discharge Details Chief Complaint: RespSymp Clinical Impression: Pneumothorax on left, Smoker, COPD with acute exacerbation Admit Date/Time: 01/02/20 14:00 Admit Provider: Jovana Rueda Attending Provider: Jovana Rueda Primary Care Provider: Sue Rodney ED Provider: Idania Peralta Hospital Course Hospital Course: This patient presented to the emergency department with a several day history of left-sided chest pain and increased shortness of breath and coughing. She was diagnosed with a left pneumothorax as a result of a ruptured bleb. The patient does have known COPD and has been treated for lung cancer in the past with radiation. She had a pigtail catheter placed in the emergency department with resolution of the pneumothorax. The pigtail was clamped on hospital day 1. On hospital day 2 chest x-ray showed that her lung was still inflated so the catheter was removed. The hospitalist service was consulted and felt that her COPD was adequately managed. They did recommend follow-up with her primary care physician due to her elevated hemoglobin A1c and prediabetic status. On the day of discharge the patient was afebrile. Her lungs were clear to auscultation bilaterally. She will follow-up with her primary care physician and also with the surgical service after having a chest x-ray. Discharge Instructions Instructions: Spontaneous Pneumothorax (GEN) Additional Instructions: It is okay to remove the dressing and shower. Replace with a Bandaid until healed. The suture will need to be removed in 7-10 days Call for increased shortness of breath or chest pain. The surgical office will contact you to schedule and chest Xray and appointment on 01/[address] Rueda. You can continue light activities. Do not do heavy lifting for a week or two. Forms: Nursing Discharge Form Referrals: Jovana Rueda, [OSTEOPATHIC DOCTOR] - 01/08/20 Discharge Data Discharge Date/Time-TO BE ENTERED AT DEPARTURE: 01/02/20 15:55 Medical Decision Making 1110 -- 74-year-old female with a history of COPD, chronic tobacco smoker, NSTEMI who presents for shortness of breath for the past few days. Admits to intermittent substernal chest pain and mid back pain. Patient placed on CPAP in route with some improvement. CPAP removed by EMS just prior to arrival as they state they were told to do that . Unclear if this was due to concern for aerosolized particles with BiPAP. Patient appears labored, accessory muscle us e, diminished breath sounds throughout. EKG obtained which noted a rate of 136, sinus with less than [address] depression in inferior leads. No acute ST elevation. Diagnosis includes acute COPD exace rbation, acute CHF, pneumonia, bronchitis, PE, etc. Will check screening labs, start with portable chest x-ray, give Solu-Medrol, duo nebs and reassess. Patient reassessed after 2 DuoNeb's and still with diminished breath sounds throughout. An hour-long albuterol neb started. Portable chest x-ray obtained and notes a 30% left-sided pneumothorax. Likely due from ruptured bleb from copd. No evidence of tension. Patient taken off BiPAP. She was placed on 4 L nasal cannula and tolerating this well. We will plan for pigtail chest tube. Pigtail chest tube placed without difficulty. Patient admitted to improvement of symptoms. HR improved to 110s. Oxygen saturation 100% on 2 L nasal cannula post chest tube placement. Labs reviewed and unremarkable. Normal troponin. Post chest tube portable chest x-ray notes reexpansion of left lung with only residual small left apical pneumothorax. Case discussed with Dr. Rueda who accepts patient for admission. Case also discussed with hospitalist Dr. Solo as a medical consult for management of her COPD. Medical Records Medical records reviewed: Yes I reviewed the patient's medical records. Imaging Data Radiologic Study: Radiologist's impression: XR PORTABLE CHEST AP CLINICAL HISTORY: r/o pneumonia TECHNIQUE: 2D digital imaging was performed. COMPARISON: CR XR CHEST 2V PA LATERAL from 10/13/2018 FINDINGS: MEDIASTINUM: Normal. HEART: Normal. PULMONARY VASCULATURE: Normal. LUNGS: Left basilar atelectasis. Findings suggestive of COPD. PLEURAL SPACE: Left pneumothorax occupying approximately 25-30 percent of the left hemithorax. No pleural effusion. BONE:Age-appropriate degenerative changes in the spine. OTHER FINDINGS:Normal. IMPRESSION: Left pneumothorax occupying approximately 25-30 percent of the left hemithorax. XR PORTABLE CHEST AP POST LINE CLINICAL HISTORY: s/p pigtail chest tube placement,confirm placement TECHNIQUE: 2D digital imaging was performed. COMPARISON: CR XR PORTABLE CHEST AP from 01/02/2020 FINDINGS: There has been interval placement of a left chest tube. There is a small residual left apical pneumothorax. There is re-expansion of the left lung without infiltrate. The right lung remains clear. Heart size and pulmonary vasculature within normal limits. No pleural effusion is seen. No right pneumothorax is present. IMPRESSION: Interval placement of a left chest tube with a small residual left pneumothorax. ECG Data Attestation: I personally reviewed and interpreted this ECG (s) as follows: Interpretation: rate of 136, sinus, T wave inversion and less than [address] depression noted in II, III, aVF, no acute ST elevation. TN 110. QTc 436. QRS 100. HPI General Mode of arrival: EMS . Date/Time Provider Initiated Documentation: 01/02/20 11:13 . Limitations to Documentation: no limitations . Information obtained by: patient . HPI Narrative: Patient is a 74-year-old female with a history of COPD, NSTEMI, tension, chronic tobacco smoker who presents with shortness of breath for the past 3 days. Patient states she is also had intermittent anterior chest pain but denies any at present. She does also admit to intermittent left mid back pain that occasionally is worse with movement and deep breath. She states she has a chronic cough with clear sputum but states this is no worse than usual. She admits to diminished appetite over the past few days. She denies any fever, vomiting, diarrhea. She denies any recent hospital admission, recent antibiotics, recent travel, known exposure to coronavirus or recent coronavirus testing. Related Data Home Medications Medication Instructions Recorded Confirmed Space Chamber Plus #1 06/09/16 12/30/19 fluticasone furoate 200 1 inh INHALATION DAILY #60 each 12/18/18 01/02/20 mcg-vilanterol 25 mcg/dose inhalation powder albuterol sulfate 90 mcg/actuation 2 puff INHALATION Q4H PRN #2 10/30/19 01/02/20 aerosol inhaler inhaler aspirin 81 mg tablet,delayed 81 mg PO DAILY #30 tab 11/11/19 01/02/20 release atorvastatin 80 mg tablet 80 mg PO QPM #90 tab 11/11/19 01/02/20 lisinopril 10 mg tablet 10 mg PO Q24H #90 tab 11/11/19 01/02/20 tiotropium bromide 18 mcg capsule 18 mcg INHALATION DAILY #1 tab-cap 11/11/19 01/02/20 with inhalation device acetaminophen [Tylenol] 325 mg PO DAILY 01/02/20 01/02/20 metoprolol tartrate 50 mg PO BID 01/02/20 01/02/20 Previous Rx's Medication Instructions Recorded fluticasone furoate 200 1 inh INHALATION DAILY #60 each 12/18/18 mcg-vilanterol 25 mcg/dose inhalation powder albuterol sulfate 90 mcg/actuation 2 puff INHALATION Q4H PRN #2 10/30/19 aerosol inhaler inhaler aspirin 81 mg tablet,delayed 81 mg PO DAILY #30 tab 11/11/19 release atorvastatin 80 mg tablet 80 mg PO QPM #90 tab 11/11/19 lisinopril 10 mg tablet 10 mg PO Q24H #90 tab 11/11/19 tiotropium bromide 18 mcg capsule 18 mcg INHALATION DAILY #1 tab-cap 11/11/19 with inhalation device Allergies Allergy/AdvReac Type Severity Reaction Status Date / Time Tetanus Vaccines and Toxoid Allergy Mild LOCAL Verified 01/02/20 11:08 SWELLING General SHIN: 2 Review of Systems All systems reviewed & are unremarkable except as noted in HPI and below Constitutional Constitutional: Reports as per HPI, Denies chills and Denies fever(s) Eyes Eyes: Denies blurry vision ENT Ears, Nose, Mouth, and Throat: Denies dizziness, Denies sore throat and Denies throat swelling Cardiovascular Cardiovascular: Denies chest pain and Reports dyspnea Respiratory Respiratory: Reports cough and Reports dyspnea Gastrointestinal Gastrointestinal: Denies abdominal pain, Denies diarrhea and Denies vomiting Genitourinary Genitourinary: Denies hematuria and Denies dysuria Musculoskeletal Musculoskeletal: Denies back pain and Denies numbness Integumentary/Breasts Skin/Breast: Denies lesions and Denies rash Neurologic Neurologic: Denies dizziness, Denies localized weakness and Denies numbness Allergic/Immunologic Allergic/Immunologic: Denies throat swelling [facility] Medical History Abnormal mammogram of left breast (Acute) Abnormal weight loss (Chronic 04/18/12) 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 Tx'ed w/XRT only in 2019 Muscle spasms of neck (Resolved 01/29/18) Nasal bleeding (Resolved) Nodule of right lung (Chronic 07/11/16) 2017 - patient reports that this was biopsied at [facility] in [place], and has been followed with PET/CT and was told that it is not cancerous 2019 - [place] [facility] [place] 06[place]. Following NSTEMI (non-ST elevated myocardial infarction) (Ruled-out) Oxygen dependent (Resolved) Peripheral vascular disease (Chronic) Pneumonia (Resolved ~09/2019) Polyp of colon (Resolved) PVD (peripheral vascular disease) Ruptured emphysematous bleb of lung (Acute) Smoker (Chronic) Quit approx. October 05, 2018 while in-patient. Has not smoked since. 03/20/19 - Admits to 1 cigaret 1-2 per week. 12/19/19 - smoking 3-4 /day Spontaneous pneumothorax (Acute) Tubular adenoma (Chronic 03/07/16) Colonoscopy 03/07/16 - 5 yr plan UPJ obstruction, acquired (Chronic) Uvulitis (Acute) Surgical History Biopsy of breast R cyst aspiration many years ago Cholecystectomy (~01/2009) Colonoscopy - [facility] (03/07/16) Dr Parisi excision CIS R buttock 2008 History of lung biopsy (Acute ~2015) Hysterectomy, Laproscopic (~1974) fibroid uterus ovaries remain Open Carpal Tunnel release left Status post breast biopsy (Inactive) Status post carpal tunnel release (Inactive) Status post cholecystectomy (Inactive) Surgery EXC/DEST INTVRT DISC NOS, 1991 C6-7 Family History Mother , 65 Cancer Sister , 65 Breast cancer Father , 75 Heart disease Sister Cancer Sister No problems noted. Brother Bone cancer Lung cancer Daughter No problems noted. Daughter No problems noted. Son No problems noted. Brother No problems noted. Maternal Grandfather No problems noted. Paternal Grandfather No problems noted. Maternal Grandmother No problems noted. Paternal Grandmother No problems noted. Social History Smoking/Tobacco Use Status: Current-Occasional Tobacco Type: cigarettes Years smoked: 50 Tobacco: How many years used: 55 Quit status: has quit before Counseling given: patient declined Alcohol Intake: never Drug use: Never Substance use type: does not use Details: Quit while in-patient. Has been 3 weeks. Caregiver/Support person: No Household members: spouse Housing: house Communication Needs: None Do you need help understanding health information?: Never Pets and animals: Yes Pets and animals: dog(s) Sexually active: No Do you think of yourself as: straight/heterosexual Current gender identity: female What is your relationship status?: How often do you talk on the phone with friends or family?: three or more times per week How often do you get together with friends or relatives?: once per week How often do you attend muslim or zoroastrian services?: decline to answer Do you belong to any clubs or organized social groups?: no Panel score (0-1 are the most socially isolated patients): 2 What type of physical activity do you participate in: walking Duration: < 15 minutes/day Frequency: daily Chloe/Presybeterian: Quaker Special chloe needs: No Seatbelt use: always Drive intox or ride w/intox package car 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: No Do you feel safe at home: Yes Do you feel safe in your relationship?: Yes Exam Const General: in distress respiratory (moderate) Orientation: alert, awake and oriented x3 HENMT Head: normal to inspection Face and sinus: normal facial exam Eyes General: appearance normal, both eyes and all related structures EOM: EOM intact bilaterally Neck Neck: normal visual inspection and No submandibular swelling Lymphatic: no lymphadenopathy noted Chest Chest: normal inspection of the chest and no tenderness Resp Effort & Inspection: not able to speak in complete sentences (3-4 word sentences), labored and uses accessory muscles Auscultation: clear to auscultation bilaterally, diminished lung sounds bilaterally throughout and no wheezes Cardio Rate: tachycardic Rhythm: regular rhythm GI Inspection: normal to inspection Palpation: soft, not firm, not rigid and nontender Auscultation: normal bowel sounds Skin General skin exam: no rashes or lesions noted Neuro General: patient alert, patient awake and patient oriented x3 Cognition: normal cognition Speech: speech normal Motor: muscle tone normal throughout Sensory Exam: no sensory deficits noted Extrem General: normal to inspection, full ROM, capillary refill normal, no calf tenderness bilaterally and no edema Psych Appearance: grossly normal Mental Status: mental status grossly normal Speech and Movement: speech and movement normal Affect: normal affect Procedures Chest Tube Chest Tube 1: Chest Tube Location: mid axillary line Size of Panamanian Tube (mm): 14 Chest Tube Prep: betadine prep, sterile drapes applied and sterile dressing applied Local Anesthetic: Lidocaine 1% and with Epi Amount of anesthesia used (mL): 8 Incision Made With: #11 blade Post Procedure: sutured to skin and sterile dressing applied Post Procedure CXR?: Yes Patient Tolerated Procedure: Yes Critical Care Time Critical Care Time Critical Care Time: Yes Total Critical Care Time: 40 Attestation: I spent 40 minutes of critical care time with this patient. This does not include time spent on separately reported billable procedures.
[2020-01-02] MEDS: methylPREDNISolone SUCC 125 MG VIAL IVP (11:22)
[2020-01-02 11:25] LABS: Abs Immature Grans 0.03 k/cumm (0.0-0.09); Absolute Eosinophil Count 0.02 k/cumm (0.0-0.7); Absolute Lymphocyte Count 0.64 k/cumm (1.2-3.4); Absolute Monocyte Count 0.69 k/cumm (0.11-0.7); Absolute Neutrophil Count 2.72 k/cumm (1.2-6.7); Eosinophils % 0.5; HCT 42.4 % (36.0-46.0); HGB 13.8 g/dL (12.0-15.5); Immature Grans % 0.7 %; Lymphocytes % 15.6; Mean Corp. HGB Concentration 32.5 g/dL (32.0-36.0); Mean Corpuscular Hemoglobin 27.7 pg (27.0-33.0); Mean Platelet Volume 12.2 fL (8.0-11.0); Monocytes % 16.8; Neutrophils % 66.4; Platelet Count 208 x1000/uL (130-400); RBC 4.99 m/cumm (4.00-5.20); RBC Distribution Width 13.7 % (11.7-14.6)
[2020-01-02 11:38] LABS: ALT 11 U/L (14-59); AST 23 U/L (15-37); Albumin 3.8 g/dL (3.4-5.0); Alkaline Phosphatase 92 U/L (46-116); Anion Gap 12.3 mmol/L (3-11); BUN 20 mg/dL (7-18); Bilirubin, Total 1.3 mg/dL (0.2-1.0); CO2 25.7 mmol/L (21.0-32.0); CREATININE 1.27 mg/dL (0.55-1.02); Calcium 9.7 mg/dL (8.5-10.1); Chloride 100 mmol/L (98-107); Estimated GFR 41.36 (mL/min/1.73m2); Glucose 129 mg/dL (74-106); Magnesium 1.9 mg/dL (1.8-2.4); Sodium 138 mmol/L (136-145); Total Protein 8.2 g/dL (6.4-8.2)
[2020-01-02 11:45] LABS: Troponin I < 0.05 ng/mL (<0.06)
[2020-01-02 11:46] LABS: INR 1.1 (0.9-1.1); PTT Activated 28.2 sec (21.0-31.4); Prothrombin Time 10.6 sec (9.3-11.0)
[2020-01-02] MEDS: Normal Saline 1,000 ML 1000 ML IV (11:51)
[2020-01-02] MEDS: Ondansetron 4 MG/2 ML VIAL (13:01)
[2020-01-02] MEDS: fentaNYL 100 MCG/2 ML VIAL IVP ×2 (13:06→13:22)
--- NOTE | 2020-01-02 13:30 | DI.RAD_ITS ---
EXAM: XR PORTABLE CHEST AP POST LINE CLINICAL HISTORY: s/p pigtail chest tube placement,confirm placement TECHNIQUE: 2D digital imaging was performed. COMPARISON: CR XR PORTABLE CHEST AP from 01/02/2020 FINDINGS: There has been interval placement of a left chest tube. There is a small residual left apical pneumo thorax. There is re-expansion of the left lung without infiltrate. The right lung remains clear. H eart size and pulmonary vasculature within normal limits. No pleural effusion is seen. No right pne umothorax is present. IMPRESSION: Interval placement of a left chest tube with a small residual left pneumothorax. DATA REPOSITORY: RADIATION DOSE DELIVERED:
--- NOTE | 2020-01-02 14:55 | HPE_ITS ---
Date of service: 01/02/20 Time of Service: 14:56 Assessment and Plan Assessment and plan (1) Emphysematous bleb of lung: Status: Acute (2) Spontaneous pneumothorax: Status: Acute (3) Ruptured emphysematous bleb of lung: Status: Acute Assessment and plan: PTX cath placed by ED/ lung is up and no air leak -per pharmacy- pt has not been on plavix since 11/2018. -pulm toilet repeat CXR in am will follow (4) History of discectomy: Status: Acute (5) Primary malignant neoplasm of cervix: Status: Acute (6) NSTEMI (non-ST elevated myocardial infarction): Status: Ruled-out (7) Chronic obstructive lung disease: Status: Chronic (8) Carotid artery stenosis: Status: Chronic (9) Acute ill-defined cerebrovascular disease: Status: Chronic (10) Lung cancer: Status: Chronic History of Present Illness Consults Consult date: 01/02/20 Requesting physician: Idania Peralta Narrative: pt presented to the ED c/o SOB. She started have posterior chest pain and sob sometime on monday. She doesn't know if she did any lifting or anyheavy coughing. She has been coughing more than usual since . SOB and cough have been my insertion pneumothorax catheter. She denies fever chills, she denies any travel. She denies Mi. She had a stroke- but that was over a yr ago w/ no long-term sequelae. She is still smoking she had long cancer on both lungs that was treated w/ XRT only. She did have a F/u CT in 11/20. I did review. She does have blebs. postXRT change notes. PCFT- severe obstructive Dx not improved w/ bronch dilators. Still smokes. it is unclear if still on plavix. 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; no residual Carotid artery stenosis (Chronic) right Carpal tunnel syndrome (Chronic) right Chronic obstructive lung disease (Chronic) COPD exacerbation (Resolved) Diverticulosis of colon without diverticulitis (Chronic) Essential hypertension (Chronic 06/24/13) Fatigue (Resolved 06/02/16) Hyperlipidemia (Chronic) Impaired fasting glucose (Chronic) Muscle spasms of neck (Resolved 01/29/18) Nasal bleeding (Resolved) Nodule of right lung (Chronic 07/11/16) 2017 - patient reports that this was biopsied at [facility] in [place], and has been followed with PET/CT and was told that it is not cancerous 2019 - R upper lobe malignant neoplasm per [facility] [place], completed radiation 06/2019. Following NSTEMI (non-ST elevated myocardial infarction) (Ruled-out) Oxygen dependent (Resolved) Peripheral vascular disease (Chronic) Pneumonia (Resolved ~09/2019) Polyp of colon (Resolved) PVD (peripheral vascular disease) Smoker (Chronic) Quit approx. October 05, 2018 while in-patient. Has not smoked since. 03/20/19 - Admits to 1 cigaret 1-2 per week. 12/19/19 - smoking 3-4 /day Tubular adenoma (Chronic 03/07/16) Colonoscopy 03/07/16 - 5 yr plan UPJ obstruction, acquired (Chronic) Uvulitis (Acute) Surgical History Biopsy of breast R cyst aspiration many years ago Cholecystectomy (~01/2009) [place] [facility] [place]07[place] Dr Parisi excision CIS R buttock 2009 History of lung biopsy (Acute ~2015) Hysterectomy, Laproscopic (~1974) fibroid uterus ovaries remain Open Carpal Tunnel release left Status post breast biopsy (Inactive) Status post carpal tunnel release (Inactive) Status post cholecystectomy (Inactive) Surgery EXC/DEST INTVRT DISC NOS, 1991 C6-7 Family History Mother , 65 Cancer Sister , 65 Breast cancer Father , 75 Heart disease Sister Cancer Sister No problems noted. Brother Bone cancer Lung cancer Daughter No problems noted. Daughter No problems noted. Son No problems noted. Brother No problems noted. Maternal Grandfather No problems noted. Paternal Grandfather No problems noted. Maternal Grandmother No problems noted. Paternal Grandmother No problems noted. Social History Smoking/Tobacco Use Status: Current-Occasional Tobacco Type: cigarettes Years smoked: 50 Tobacco: How many years used: 55 Quit status: has quit before Counseling given: patient declined Alcohol Intake: never Drug use: Never Substance use type: does not use Details: Quit while in-patient. Has been 3 weeks. Caregiver/Support person: No Household members: spouse Housing: house Communication Needs: None Do you need help understanding health information?: Never Pets and animals: Yes Pets and animals: dog(s) Sexually active: No Do you think of yourself as: straight/heterosexual Current gender identity: female What is your relationship status?: How often do you talk on the phone with friends or family?: three or more times per week How often do you get together with friends or relatives?: once per week How often do you attend scientology or alevism services?: decline to answer Do you belong to any clubs or organized social groups?: no Panel score (0-1 are the most socially isolated patients): 2 What type of physical activity do you participate in: walking Duration: < 15 minutes/day Frequency: daily Chloe/Jewish: Oriental Orthodox Special chloe needs: No Seatbelt use: always Drive intox or ride w/intox petrol tanker driver: No Do you feel safe at home: Yes Do you feel safe in your relationship?: Yes Meds Home Medications and Allergies Home Medications Medication Instructions Recorded Confirmed Type acetaminophen [Tylenol Extra 1,000 mg PO PRN tab-cap 12/24/12 01/02/20 History Strength] inhalational spacing device [Space #1 06/09/16 12/30/19 History Chamber Plus] fluticasone furoate 200 1 inh INHALATION DAILY #60 each 12/18/18 01/02/20 Rx mcg-vilanterol 25 mcg/dose inhalation powder albuterol sulfate 90 mcg/actuation 2 puff INHALATION Q4H PRN #2 10/30/19 01/02/20 Rx aerosol inhaler inhaler aspirin 81 mg tablet,delayed 81 mg PO DAILY #30 tab 11/11/19 01/02/20 Rx release atorvastatin 80 mg tablet 80 mg PO QPM #90 tab 11/11/19 01/02/20 Rx lisinopril 10 mg tablet 10 mg PO Q24H #90 tab 11/11/19 01/02/20 Rx metoprolol tartrate 50 mg tablet 50 mg PO Q8H #90 tab 11/11/19 01/02/20 Rx tiotropium bromide 18 mcg capsule 18 mcg INHALATION DAILY #1 tab-cap 11/11/19 01/02/20 Rx with inhalation device Allergies Allergy/AdvReac Type Severity Reaction Status Date / Time Tetanus Vaccines and Toxoid Allergy Mild LOCAL Verified 01/02/20 11:08 SWELLING Exam HENMT Head: normal to inspection Ears: hearing grossly normal bilaterally and external ears normal General nose exam: external nose normal and nares normal Face and sinus: normal facial exam and face symmetric Teeth and gingiva: fair dentition Chest Other: s/p L sided tube insertion Resp Effort & Inspection: normal respiratory effort, able to speak in complete sentences, no audible wheezes and cough (chronic smokers cough. non productive ) Auscultation: clear to auscultation bilaterally and diminished lung sounds Other: no r/r/w. sounds are dimmished CXR reviewed- tube in good position. PTX resolved. no air leak Cardio Rate: regular rate Rhythm: regular rhythm GI Inspection: normal to inspection Palpation: soft and tender Neuro General: patient alert, patient oriented x3, oriented, moves all extremities and no focal motor deficits Cranial Nerves: CN's II-XI intact bilaterally Extrem General: no clubbing, cyanosis or edema Results Labs Result diagrams: 01/02/20 11:15 01/02/20 11:15 Labs: Laboratory Results - last 24 hr 01/02/20 01/02/20 01/02/20 11:15 11:15 11:15 WBC 4.10 L RBC 4.99 Hgb 13.8 Hct 42.4 MCV 85.0 MCH 27.7 MCHC 32.5 RDW 13.7 Plt Count 208 MPV 12.2 H Immature Gran % 0.7 Neutrophils % 66.4 Lymphocytes % 15.6 Monocytes % 16.8 Eosinophils % 0.5 Basophils % 0.0 Absolute Neutrophils 2.72 Absolute Lymphocytes 0.64 L Absolute Monocytes 0.69 Absolute Eosinophils 0.02 Absolute Basophils 0.00 PT 10.6 INR 1.1 APTT 28.2 Sodium 138 Potassium 4.0 Chloride 100 Carbon Dioxide 25.7 Anion Gap 12.3 H BUN 20 H Creatinine 1.27 H Estimated GFR/1.73 m2 41.36 Glucose 129 H Calcium 9.7 Magnesium 1.9 Total Bilirubin 1.3 H AST 23 ALT 11 L Alkaline Phosphatase 92 Troponin I < 0.05 Total Protein 8.2 Albumin 3.8 Last Vital Signs Temp 37.1 C 01/02/20 11:04 Pulse 118 H 01/02/20 14:30 Resp 21 01/02/20 14:31 BP 138/45 L 01/02/20 14:30 Pulse Ox 95 01/02/20 14:31 COVID-19 Screening In the past 14 days, have you traveled outside of [place] or [place]?: NO Had IN PERSON contact w/suspected or confirmed C-19 person: No
[2020-01-02] MEDS: Ondansetron 4 MG/2 ML VIAL IVP (15:15)
[2020-01-02] MEDS: Metoprolol 50 MG TAB PO (17:22)
--- NOTE | 2020-01-02 18:35 | MCONE_ITS ---
Date of service: 01/02/20 Time of Service: 18:10 Assessment and Plan Assessment and plan (1) Pneumothorax on left: Status: Acute Assessment and plan: s/p chest tube. Appears to be doing well. Defer to general surgery. Agree with IS. Monitor for development of PNA. (2) Hypoxia: Status: Acute Assessment and plan: In this case, likely due to pneumothorax rather than COPD exacerbation, which I do not think the patient has at this time. Target O2 sat >90%. (3) Chronic obstructive lung disease: Status: Chronic Assessment and plan: As above - I do not feel the patient has an acute ex acerbation at this time. Would continue current therapy (agree with substitution of breo with symbicort). (4) Impaired fasting glucose: Status: Chronic Assessment and plan: Check A1C History of Present Illness History of Present Illness Chief Complaint: shortness of breath Narrative: Ms Reynolds is a 74 year old female with PMHx of a provoked pneumothorax on the R as a consequence of a CT-guided bx, as well as non-oxygen dependent COPD, lung cancer in remission (per patient), treated with XRT, hypertension, hyperlipidemia, ongoing tobacco abuse, who was admited to the surgical service today for spontaneous L-sided pneumothorax, requiring placement of a chest tube. Ms Reynolds stated that she felt a pop in her chest on Monday, following which her breathing got progressively worse. She had to sleep in a recliner because it was especially worse laying down. There was no chest pain, dizziness, fever, leg swelling. This morning she called her PCP's office and was told to call an ambulance and go to ED. She states she does have a cough, chronic, occasionally productive of clear sputum - it has not changed. At home, she takes 3 different inhalers and states she does not have a nebulizer machine. Her pain is well-controlled. Consults Consult date: 01/02/20 Requesting physician: Jovana Rueda Review of Systems Narrative: 12 systems reviewed. Pertinent positives and negatives are as per HPI. 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 Tx'ed w/XRT only in 2019 Muscle spasms of neck (Resolved 01/29/18) Nasal bleeding (Resolved) Nodule of right lung (Chronic 07/11/16) 2017 - patient reports that this was biopsied at [facility] in [place], and has been followed with PET/CT and was told that it is not cancerous 2019 - R upper lobe malignant neoplasm per [facility], completed radiation 06/2019. Following NSTEMI (non-ST elevated myocardial infarction) (Ruled-out) Oxygen dependent (Resolved) Peripheral vascular disease (Chronic) Pneumonia (Resolved ~09/2019) Polyp of colon (Resolved) PVD (peripheral vascular disease) Ruptured emphysematous bleb of lung (Acute) Smoker (Chronic) Quit approx. October 05, 2018 while in-patient. Has not smoked since. 03/20/19 - Admits to 1 cigaret 1-2 per week. 12/19/19 - smoking 3-4 /day Spontaneous pneumothorax (Acute) Tubular adenoma (Chronic 03/07/16) Colonoscopy 03/07/16 - 5 yr plan UPJ obstruction, acquired (Chronic) Uvulitis (Acute) Surgical History Biopsy of breast R cyst aspiration many years ago Cholecystectomy (~01/2009) Colonoscopy - MAC (03/07/16) Dr Parisi excision CIS R buttock 2009 History of lung biopsy (Acute ~2015) Hysterectomy, Laproscopic (~1974) fibroid uterus ovaries remain Open Carpal Tunnel release left Status post breast biopsy (Inactive) Status post carpal tunnel release (Inactive) Status post cholecystectomy (Inactive) Surgery EXC/DEST INTVRT DISC NOS, 1991 C6-7 Family History Mother , 65 Cancer Sister , 65 Breast cancer Father , 75 Heart disease Sister Cancer Sister No problems noted. Brother Bone cancer Lung cancer Daughter No problems noted. Daughter No problems noted. Son No problems noted. Brother No problems noted. Maternal Grandfather No problems noted. Paternal Grandfather No problems noted. Maternal Grandmother No problems noted. Paternal Grandmother No problems noted. Social History Smoking/Tobacco Use Status: Current-Occasional Tobacco Type: cigarettes Years smoked: 50 Tobacco: How many years used: 55 Quit status: has quit before Counseling given: patient declined Alcohol Intake: never Drug use: Never Substance use type: does not use Details: Quit while in-patient. Has been 3 weeks. Caregiver/Support person: No Household members: spouse Housing: house Communication Needs: None Do you need help understanding health information?: Never Pets and animals: Yes Pets and animals: dog(s) Sexually active: No Do you think of yourself as: straight/heterosexual Current gender identity: female What is your relationship status?: How often do you talk on the phone with friends or family?: three or more times per week How often do you get together with friends or relatives?: once per week How often do you attend sabianist or muslim services?: decline to answer Do you belong to any clubs or organized social groups?: no Panel score (0-1 are the most socially isolated patients): 2 What type of physical activity do you participate in: walking Duration: < 15 minutes/day Frequency: daily Chloe/Congregational: Restorationism Special chloe needs: No Seatbelt use: always Drive intox or ride w/intox national dedicated 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: No Do you feel safe at home: Yes Do you feel safe in your relationship?: Yes Exam Narrative Exam Narrative: General: Very pleasant elderly female, appears com fortable sitting up in bed, coughs occasional - dry Neurological: A&OX3, no focal deficits Psychiatric: appropriate speech pattern, content Skin: visible skin intact; chest tube dresing on R - c/d/i HEENT: Atraumatic, normocephalic, EOMI, MMM, clear oropharynx, no submandibular or cervical lymphadenopathy, no goiter or JVD Cardiovascular: RRR, no m/r/g Lungs: diminished breath sounds on L as compared to R, however, I hear air entry in all lung summers Gastrointestinal: soft, nontender, nondistended Genitourinary: deferred Extremities: no e/c/c BLE's, 1+ pedal pulses B Results Last Vital Signs Temp 37.3 C 01/02/20 16:33 Pulse 109 H 01/02/20 16:33 Resp 22 01/02/20 16:33 BP 116/53 L 01/02/20 16:31 Pulse Ox 95 01/02/20 16:33 Labs Result diagrams: 01/02/20 11:15 01/02/20 11:15 Labs: Laboratory Results - last 24 hr 01/02/20 01/02/20 01/02/20 11:15 11:15 11:15 WBC 4.10 L RBC 4.99 Hgb 13.8 Hct 42.4 MCV 85.0 MCH 27.7 MCHC 32.5 RDW 13.7 Plt Count 208 MPV 12.2 H Immature Gran % 0.7 Neutrophils % 66.4 Lymphocytes % 15.6 Monocytes % 16.8 Eosinophils % 0.5 Basophils % 0.0 Absolute Neutrophils 2.72 Absolute Lymphocytes 0.64 L Absolute Monocytes 0.69 Absolute Eosinophils 0.02 Absolute Basophils 0.00 PT 10.6 INR 1.1 APTT 28.2 Sodium 138 Potassium 4.0 Chloride 100 Carbon Dioxide 25.7 Anion Gap 12.3 H BUN 20 H Creatinine 1.27 H Estimated GFR/1.73 m2 41.36 Glucose 129 H Calcium 9.7 Magnesium 1.9 Total Bilirubin 1.3 H AST 23 ALT 11 L Alkaline Phosphatase 92 Troponin I < 0.05 Total Protein 8.2 Albumin 3.8 Imaging Additional studies: CXR #1: Left pneumothorax occupying approximately 25-30 percent of the left hemithorax. CXR #2: Interval placement of a left chest tube with a small residual left pneumothorax.
[2020-01-02 19:46] LABS: Troponin I < 0.05 ng/mL (<0.06)
[2020-01-02] MEDS: Atorvastatin 40 MG TAB 80 MG PO (20:27)
[2020-01-02] MEDS: Budesonide/Formoterol 160/4.5 6 GM 60 PUFF INH IH (20:27)
[2020-01-02] MEDS: Acetaminophen 500 MG TAB 1000 MG PO (20:31)
[2020-01-02] MEDS: Normal Saline Flush 10 ML SYR IVP (20:33)
[2020-01-02] MEDS: Triamcinolone 0.1% OINT 15 GM TUBE TP (23:50)
[2020-01-03] VITALS (10 sets, daily range): BP systolic 93–121; BP diastolic 59–70; PULSE 60–82; RESP 17–20; TEMP 36–36.8; O2SAT 89–97
--- NOTE | 2020-01-03 00:11 | NUR.NOTE ---
Nursing Note: At approximately 23:45 pt was moved out of ICU to room 205. All of pt belongings came out with her. Pt is on 1LO2 sating 91%. Lungs are diminished and heart is regular. Chest tube is hooked up to suction. Will continue to monitor.
--- NOTE | 2020-01-03 05:53 | DI.RAD_ITS ---
EXAM: XR PORTABLE CHEST AP POST LINE CLINICAL HISTORY: PTX/PTX cath placement TECHNIQUE: 2D digital imaging was performed. COMPARISON: CR XR PORTABLE CHEST AP POST LINE from 01/02/2020 FINDINGS: MEDIASTINUM: Normal. HEART: Normal. PULMONARY VASCULATURE: Normal. LUNGS: Clear. PLEURAL SPACE: A tiny residual left apical pneumothorax cannot be excluded. BONE:Normal. OTHER FINDINGS:Left chest tube is projected over the upper lateral left hemithorax. IMPRESSION: Left-sided chest tube. A tiny residual left apical pneumothorax cannot be excluded. DATA REPOSITORY: RADIATION DOSE DELIVERED:
--- NOTE | 2020-01-03 06:10 | DI.VRAD_ITS ---
PROCEDURE INFORMATION: Exam: XR Chest, 1 View Exam date and time: 01/03/2020 5:53 AM Age: 74 years old Clinical indication: Device placement; Chest tube TECHNIQUE: Imaging protocol: XR of the chest Views: 1 view. COMPARISON: CR XR PORTABLE CHEST AP POST LINE 01/02/2020 1:43 PM FINDINGS: Left-sided chest tube projects over the left upper lobe peripherally. Trace left apical pneumothorax not excluded. Chronic interstitial prominence. No focal consolidation or pleural effusion The cardiomediastinal silhouette and osseous structures are grossly stable IMPRESSION: Left-sided chest tube overlying the left upper lobe as described. Trace left apical pneumothorax not excluded Dictated and Authenticated by: Lexx Caal MD. Ordering:RENNY Whaley MD
[2020-01-03 07:39] LABS: Abs Immature Grans 0.01 k/cumm (0.0-0.09); Absolute Lymphocyte Count 0.57 k/cumm (1.2-3.4); Absolute Monocyte Count 0.71 k/cumm (0.11-0.7); Absolute Neutrophil Count 3.49 k/cumm (1.2-6.7); HCT 37.6 % (36.0-46.0); Immature Grans % 0.2 %; Lymphocytes % 11.9; Mean Corp. HGB Concentration 31.9 g/dL (32.0-36.0); Mean Corpuscular Hemoglobin 27.6 pg (27.0-33.0); Mean Corpuscular Volume 86.6 fL (80-95); Mean Platelet Volume 12.8 fL (8.0-11.0); Monocytes % 14.9; Platelet Count 188 x1000/uL (130-400); RBC 4.34 m/cumm (4.00-5.20); RBC Distribution Width 13.8 % (11.7-14.6); White Blood Cell Count 4.78 k/cumm (4.4-10.8)
[2020-01-03 07:48] LABS: Anion Gap 8.1 mmol/L (3-11); BUN 21 mg/dL (7-18); CO2 27.9 mmol/L (21.0-32.0); CREATININE 1.28 mg/dL (0.55-1.02); Calcium 9.1 mg/dL (8.5-10.1); Chloride 102 mmol/L (98-107); Estimated GFR 40.99 (mL/min/1.73m2); Glucose 136 mg/dL (74-106); Potassium 4.2 mmol/L (3.5-5.1); Sodium 138 mmol/L (136-145)
[2020-01-03] MEDS: Budesonide/Formoterol 160/4.5 6 GM 60 PUFF INH IH ×2 (07:58→20:25)
[2020-01-03] MEDS: Tiotropium Bromide-Respimat 10 PUFF INH IH (07:58)
[2020-01-03] MEDS: Aspirin E.C. 81 MG TABEC PO (08:24)
[2020-01-03] MEDS: Acetaminophen 325 MG TAB PO (08:24)
[2020-01-03] MEDS: Metoprolol 50 MG TAB PO ×2 (08:24→20:25)
[2020-01-03] MEDS: Lisinopril 10 MG TAB PO (08:24)
[2020-01-03] MEDS: Ketoconazole 2% CREAM 15 GM TUBE TP (08:25)
[2020-01-03] MEDS: Triamcinolone 0.1% OINT 15 GM TUBE TP ×3 (08:26→20:26)
[2020-01-03 08:33] LABS: COVID-19 RT-PCR UVMMC Result Negative (Negative)
[2020-01-03 08:54] LABS: Hemoglobin A1C 5.8 % (3.8-5.6)
--- NOTE | 2020-01-03 09:20 | NUR.NOTE ---
Addendum entered by Yodit Xiao 01/03/20 10:39: Dr. Rueda on floor, asked MD to clarify CT set up, MD informed television script writer that she has verified it is hooked up correctly, and she will discuss this with television script writer at a later time, there was a pressing matter she was in the middle of attending to. Pt denies SOB, admits cough, sometimes productive, SpO2 97% on 2LPM via NC, pt reports great improvement in respiratory status since admission, lungs are CRS but diminished. Original Note: Nursing Note:
--- NOTE | 2020-01-03 10:12 | W.PM.PROGNOT ---
Date of Service Date of service: 01/03/20 Time of Service: 10:12 Assessment and Plan Assessment and plan (1) Lung cancer: Status: Chronic (2) Ruptured emphysematous bleb of lung: Status: Acute Assessment and plan: Stable on off of suction repeat CXR in am cont pulm toilet. d/w pt importance of smoking cessation. She is not interested in assistance hopefully d/c catheter in am and D/C home in am (3) Spontaneous pneumothorax: Status: Acute (4) Emphysematous bleb of lung: Status: Acute (5) Pneumothorax on left: Status: Acute (6) Smoker: Status: Acute (7) COPD (chronic obstructive pulmonary disease): Status: Chronic Subjective Subjective Interval history since last seen: lung is up this am w/ no air leak. pt feels better. minimal pain and no SOB. chronic cough. no bleeding will place on water seal and repeat film at noon. heart rate is NSR. BP has been stable. Repeat CXR shows lung remains up on water seal. no bleeding or air leak. Dressing is C/D/I Exam Chest Chest: normal inspection of the chest and normal palpation of entire chest wall (no crepitus ) Resp Effort & Inspection: normal respiratory effort, able to speak in complete sentences, abnormal respiratory pattern and cough Quality of cough: dry Auscultation: clear to auscultation bilaterally GI Palpation: soft and nontender Extrem General: normal to inspection and no clubbing, cyanosis or edema Objective Objective Clinical Data: Abnormal lab results 01/02/20 01/02/20 01/03/20 Range/Units 11:15 11:15 06:15 WBC 4.10 L (4.4-10.8) k/cumm MCHC (32.0-36.0) g/dL MPV 12.2 H (8.0-11.0) fL Absolute Lymphocytes 0.64 L (1.2-3.4) k/cumm Absolute Monocytes (0.11-0.7) k/cumm Anion Gap 12.3 H (3-11) mmol/L BUN 20 H 21 H (7-18) mg/dL Creatinine 1.27 H 1.28 H (0.55-1.02) mg/dL Glucose 129 H 136 H (74-106) mg/dL Hemoglobin A1c (3.8-5.6) % Total Bilirubin 1.3 H (0.2-1.0) mg/dL ALT 11 L (14-59) U/L 01/03/20 01/03/20 Range/Units 06:15 06:15 WBC (4.4-10.8) k/cumm MCHC 31.9 L (32.0-36.0) g/dL MPV 12.8 H (8.0-11.0) fL Absolute Lymphocytes 0.57 L (1.2-3.4) k/cumm Absolute Monocytes 0.71 H (0.11-0.7) k/cumm Anion Gap (3-11) mmol/L BUN (7-18) mg/dL Creatinine (0.55-1.02) mg/dL Glucose (74-106) mg/dL Hemoglobin A1c 5.8 H (3.8-5.6) % Total Bilirubin (0.2-1.0) mg/dL ALT (14-59) U/L Vital Signs Temperature 36.7 C 01/03/20 07:55 Temperature Source Tympanic 01/03/20 07:55 Pulse 80 01/03/20 07:55 Pulse Rhythm Regular 01/03/20 00:31 Pulse 65 01/02/20 23:00 Respiratory Rate 17 01/03/20 07:55 Respiratory Effort 01/03/20 00:31 Respiratory Depth Normal 01/03/20 00:31 Respiratory Pattern Normal 01/03/20 00:31 Blood Pressure 109/63 01/03/20 07:55 Blood Pressure Mean 78 01/02/20 20:38 Blood Pressure Position Supine 01/02/20 16:33 Pulse Oximetry 97 01/03/20 07:55 Oxygen Delivery Method Nasal Cannula 01/03/20 07:55 Oxygen Flow Rate 2 01/03/20 07:55 Fraction of Inspired Oxygen (FIO2) 30 01/02/20 11:13 Pain Level 1 01/03/20 08:24 Intake & Output 01/02/20 01/02/20 01/03/20 11:59 23:59 11:59 Intake Total 1600 / 1600 930 / 930 Output Total 950 / 950 Balance 1599 / 1599 -20 Weight 56.699 kg 54.9 kg 54.1 kg Intake: IV 1000 / 1000 Oral 600 / 600 930 / 930 Output: Urine 950 / 950 Other: Urine Color Yellow Urine Appearance Clear Urine Odor Strong Voiding Methods Bedside Commode Laboratory Results WBC 4.78 k/cumm (4.4-10.8) 01/03/20 06:15 RBC 4.34 m/cumm (4.00-5.20) 01/03/20 06:15 Hgb 12.0 g/dL (12.0-15.5) 01/03/20 06:15 Hct 37.6 % (36.0-46.0) 01/03/20 06:15 MCV 86.6 fL (80-95) 01/03/20 06:15 MCH 27.6 pg (27.0-33.0) 01/03/20 06:15 MCHC 31.9 g/dL (32.0-36.0) L 01/03/20 06:15 RDW 13.8 % (11.7-14.6) 01/03/20 06:15 Plt Count 188 x1000/uL (130-400) 01/03/20 06:15 MPV 12.8 fL (8.0-11.0) H 01/03/20 06:15 Immature Gran % 0.2 % 01/03/20 06:15 Neutrophils % 73.0 01/03/20 06:15 Lymphocytes % 11.9 01/03/20 06:15 Monocytes % 14.9 01/03/20 06:15 Eosinophils % 0.0 01/03/20 06:15 Basophils % 0.0 01/03/20 06:15 Absolute Neutrophils 3.49 k/cumm (1.2-6.7) 01/03/20 06:15 Absolute Lymphocytes 0.57 k/cumm (1.2-3.4) L 01/03/20 06:15 Absolute Monocytes 0.71 k/cumm (0.11-0.7) H 01/03/20 06:15 Absolute Eosinophils 0.00 k/cumm (0.0-0.7) 01/03/20 06:15 Absolute Basophils 0.00 k/cumm (0.0-0.2) 01/03/20 06:15 PT 10.6 sec (9.3-11.0) 01/02/20 11:15 INR 1.1 (0.9-1.1) 01/02/20 11:15 APTT 28.2 sec (21.0-31.4) 01/02/20 11:15 Sodium 138 mmol/L (136-145) 01/03/20 06:15 Potassium 4.2 mmol/L (3.5-5.1) 01/03/20 06:15 Chloride 102 mmol/L (98-107) 01/03/20 06:15 Carbon Dioxide 27.9 mmol/L (21.0-32.0) 01/03/20 06:15 Anion Gap 8.1 mmol/L (3-11) 01/03/20 06:15 BUN 21 mg/dL (7-18) H 01/03/20 06:15 Creatinine 1.28 mg/dL (0.55-1.02) H 01/03/20 06:15 Estimated GFR/1.73 m2 40.99 (mL/min/1.73m2) 01/03/20 06:15 Glucose 136 mg/dL (74-106) H 01/03/20 06:15 Hemoglobin A1c 5.8 % (3.8-5.6) H 01/03/20 06:15 Calcium 9.1 mg/dL (8.5-10.1) 01/03/20 06:15 Magnesium 2.0 mg/dL (1.8-2.4) 01/03/20 06:15 Total Bilirubin 1.3 mg/dL (0.2-1.0) H 01/02/20 11:15 AST 23 U/L (15-37) 01/02/20 11:15 ALT 11 U/L (14-59) L 01/02/20 11:15 Alkaline Phosphatase 92 U/L (46-116) 01/02/20 11:15 Troponin I < 0.05 ng/mL (<0.06) 01/02/20 19:09 Total Protein 8.2 g/dL (6.4-8.2) 01/02/20 11:15 Albumin 3.8 g/dL (3.4-5.0) 01/02/20 11:15 COVID-19 PCR Negative (Negative) 01/02/20 15:10 Nasopharyn COVID-19 PCR Not Applicable 01/02/20 15:10 Ref Test Perform Site [facility] lab 01/02/20 15:10
--- NOTE | 2020-01-03 10:23 | DI.RAD_ITS ---
EXAM: XR PORTABLE CHEST AP CLINICAL HISTORY: chest tube to water seal/eval PTX TECHNIQUE: 2D digital imaging was performed. COMPARISON: CR,XR XR PORTABLE CHEST AP POST LINE from 01/03/2020 FINDINGS: MEDIASTINUM: Normal. HEART: Normal. PULMONARY VASCULATURE: Normal. LUNGS: Clear. PLEURAL SPACE: No pleural effusion or pneumothorax. BONE:Normal. OTHER FINDINGS:Left chest tube is in the left upper hemithorax laterally. IMPRESSION: No evidence of a pneumothorax. DATA REPOSITORY: RADIATION DOSE DELIVERED:
--- NOTE | 2020-01-03 13:19 | W.NUTRFU ---
Date of service: 01/03/20 Time of Service: 13:19 Nutritional Follow up NOTE: 74 year old female admitted with hypoxia, spontaneous pneumothorax. BMI wnl. Following Regular diet with adequate intake. Not at risk for nutritional decline at this time. Time Spent in Nutritional Counseling and Treatment: 0 time
--- NOTE | 2020-01-03 14:10 | CHAPLAIN ---
Lianna was resting in bed when I visited. She wishes she could have have her or another family member with her. She seems to be comfortable being here, just lonely.
--- NOTE | 2020-01-03 14:52 | PGE_ITS ---
Date of Service Date of service: 01/03/20 Time of Service: 14:52 Assessment and Plan Assessment and plan (1) Pneumothorax on left: Status: Acute Assessment and plan: s/p chest tube. Repeat CXR - no PTX. Chest tube transitioned to water seal. Doing well. Continue to encourage IS. Continue to monitor for fever. At this time, nothing else to add. (2) Hypoxia: Status: Acute Assessment and plan: Due to pneumothorax rather than COPD exacerbation, which I do not think the patient has at this time. Target O2 sat >90%. (3) Chronic obstructive lung disease: Status: Chronic Assessment and plan: Not in acute exacerbation. Would continue current therapy. (4) Impaired fasting glucose: Status: Chronic Assessment and plan: A1C 5.8 - does have prediabetes. Will need to follow up with PCP. Consult nutrition. Hospitalists are signing off. Please, reconsult if needed. Subjective Subjective Interval history since last seen: Pain controlled. Breathing much better. Denies dizziness, chest pain, still slightly short of breath, reports her regular cough productive of clear sputum. Had an episode of nausea, but no vomiting. Feels a little warm/flushed. Her chest tube was placed on waterseal. Exam Narrative Exam Narrative: General: Very pleasant elderly female, A&Ox3, NAD HEENT: EOMI, MMM Heart: RRR, no m/r/g Lungs: CTAB with slightly diminished breath sounds on L anteriorly Abdomen: soft, nontender, nondistended Extremities: no e/c/c BLE's Objective Objective Clinical Data: Abnormal lab results 01/03/20 01/03/20 01/03/20 Range/Units 06:15 06:15 06:15 MCHC 31.9 L (32.0-36.0) g/dL MPV 12.8 H (8.0-11.0) fL Absolute Lymphocytes 0.57 L (1.2-3.4) k/cumm Absolute Monocytes 0.71 H (0.11-0.7) k/cumm BUN 21 H (7-18) mg/dL Creatinine 1.28 H (0.55-1.02) mg/dL Glucose 136 H (74-106) mg/dL Hemoglobin A1c 5.8 H (3.8-5.6) % Vital Signs Temperature 36.8 C 01/03/20 11:53 Temperature Source Tympanic 01/03/20 11:53 Pulse 60 01/03/20 11:53 Pulse Rhythm Regular 01/03/20 08:30 Pulse 65 01/02/20 23:00 Respiratory Rate 18 01/03/20 11:53 Respiratory Effort 01/03/20 08:30 Respiratory Depth Normal 01/03/20 08:30 Respiratory Pattern Normal 01/03/20 08:30 Blood Pressure 98/60 L 01/03/20 11:53 Blood Pressure Mean 78 01/02/20 20:38 Blood Pressure Position Supine 01/02/20 16:33 Pulse Oximetry 92 L 01/03/20 11:53 Oxygen Delivery Method Room Air 01/03/20 11:53 Oxygen Flow Rate 0 01/03/20 11:53 Fraction of Inspired Oxygen (FIO2) 30 01/02/20 11:13 Pain Level 2 01/03/20 11:53 Intake & Output 01/02/20 01/03/20 01/03/20 23:59 11:59 23:59 Intake Total 1600 / 1600 930 / 1660 730 / 1660 Output Total 950 / 1250 300 / 1250 Balance 1600 / 1600 -20 / 410 430 / 410 Weight 54.9 kg 54.1 kg Intake: IV 1000 / 1000 Oral 600 / 600 930 / 1660 730 / 1660 Output: Urine 950 / 1250 300 / 1250 Other: Urine Color Yellow Yellow Urine Appearance Clear Clear Urine Odor Strong Normal Voiding Methods Bedside Commode Bedside Commode Laboratory Results WBC 4.78 k/cumm (4.4-10.8) 01/03/20 06:15 RBC 4.34 m/cumm (4.00-5.20) 01/03/20 06:15 Hgb 12.0 g/dL (12.0-15.5) 01/03/20 06:15 Hct 37.6 % (36.0-46.0) 01/03/20 06:15 MCV 86.6 fL (80-95) 01/03/20 06:15 MCH 27.6 pg (27.0-33.0) 01/03/20 06:15 MCHC 31.9 g/dL (32.0-36.0) L 01/03/20 06:15 RDW 13.8 % (11.7-14.6) 01/03/20 06:15 Plt Count 188 x1000/uL (130-400) 01/03/20 06:15 MPV 12.8 fL (8.0-11.0) H 01/03/20 06:15 Immature Gran % 0.2 % 01/03/20 06:15 Neutrophils % 73.0 01/03/20 06:15 Lymphocytes % 11.9 01/03/20 06:15 Monocytes % 14.9 01/03/20 06:15 Eosinophils % 0.0 01/03/20 06:15 Basophils % 0.0 01/03/20 06:15 Absolute Neutrophils 3.49 k/cumm (1.2-6.7) 01/03/20 06:15 Absolute Lymphocytes 0.57 k/cumm (1.2-3.4) L 01/03/20 06:15 Absolute Monocytes 0.71 k/cumm (0.11-0.7) H 01/03/20 06:15 Absolute Eosinophils 0.00 k/cumm (0.0-0.7) 01/03/20 06:15 Absolute Basophils 0.00 k/cumm (0.0-0.2) 01/03/20 06:15 PT 10.6 sec (9.3-11.0) 01/02/20 11:15 INR 1.1 (0.9-1.1) 01/02/20 11:15 APTT 28.2 sec (21.0-31.4) 01/02/20 11:15 Sodium 138 mmol/L (136-145) 01/03/20 06:15 Potassium 4.2 mmol/L (3.5-5.1) 01/03/20 06:15 Chloride 102 mmol/L (98-107) 01/03/20 06:15 Carbon Dioxide 27.9 mmol/L (21.0-32.0) 01/03/20 06:15 Anion Gap 8.1 mmol/L (3-11) 01/03/20 06:15 BUN 21 mg/dL (7-18) H 01/03/20 06:15 Creatinine 1.28 mg/dL (0.55-1.02) H 01/03/20 06:15 Estimated GFR/1.73 m2 40.99 (mL/min/1.73m2) 01/03/20 06:15 Glucose 136 mg/dL (74-106) H 01/03/20 06:15 Hemoglobin A1c 5.8 % (3.8-5.6) H 01/03/20 06:15 Calcium 9.1 mg/dL (8.5-10.1) 01/03/20 06:15 Magnesium 2.0 mg/dL (1.8-2.4) 01/03/20 06:15 Total Bilirubin 1.3 mg/dL (0.2-1.0) H 01/02/20 11:15 AST 23 U/L (15-37) 01/02/20 11:15 ALT 11 U/L (14-59) L 01/02/20 11:15 Alkaline Phosphatase 92 U/L (46-116) 01/02/20 11:15 Troponin I < 0.05 ng/mL (<0.06) 01/02/20 19:09 Total Protein 8.2 g/dL (6.4-8.2) 01/02/20 11:15 Albumin 3.8 g/dL (3.4-5.0) 01/02/20 11:15 COVID-19 PCR Negative (Negative) 01/02/20 15:10 Nasopharyn COVID-19 PCR Not Applicable 01/02/20 15:10 Ref Test Perform Site [facility] lab 01/02/20 15:10 CXR: No evidence of a pneumothorax.
--- NOTE | 2020-01-03 15:33 | INITIAL_ITS ---
- If Service Date Differs Date of service: 01/03/20 Time of Service: 15:33 Care Management Initial Assess REASON FOR HOSPITALIZATION:: Acute PTX Secondary to Bleb PAST MEDICAL HISTORY/PAST SURGICAL HISTORY:: Medical History . Abnormal mammogram of left breast (Acute). Abnormal weight loss (Chronic 04/18/12). 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 Carotid artery stenosis (Chronic). right. Carpal tunnel syndrome (Chronic). right. Chronic obstructive lung disease (Chronic). COPD exacerbation (Resolved). Diverticulosis of colon without diverticulitis (Chronic). Essential hypertension (Chronic 06/24/13). Fatigue (Resolved 06/02/16). Hyperlipidemia (Chronic). Impaired fasting glucose (Chronic). Muscle spasms of neck (Resolved 01/29/18). Nasal bleeding (Resolved). Nodule of right lung (Chronic 07/11/16). 2017 - patient reports that this was biopsied at [facility] in [place], and has been followed with PET/CT and was told that it is not cancerous. 2019 - [place] [facility] 06/2019. Following. NSTEMI (non-ST elevated myocardial infarction) (Ruled-out). Oxygen dependent (Resolved). Peripheral vascular disease (Chronic). Pneumonia (Resolved ~09/2019). Polyp of colon (Resolved). PVD (peripheral vascular disease). Smoker (Chronic). Quit approx. October 05, 2018 while in-patient. Has not smoked since. 03/20/19 - Admits to 1 cigaret 1-2 per week. 12/19/19 - smoking 3- 4 /day. Tubular adenoma (Chronic 03/07/16). Colonoscopy 03/07/16 - 5 yr plan. UPJ obstruction, acquired (Chronic). Uvulitis (Acute). Surgical History . Biopsy of breast. R cyst aspiration many years ago. Cholecystectomy (~01/2009). Colonoscopy - MAC (02/21 12/06). Dr Parisi. excision CIS R buttock 2008. History of lung biopsy (Acute ~2015). Hysterectomy, Laproscopic (~1974). fibroid uterus ovaries remain. Open Carpal Tunnel release. left. Status post breast biopsy (Inactive). Status post carpal tunnel release (Inactive). Status post cholecystectomy (Inactive). Surgery. EXC/DEST INTVRT DISC NOS, 1992. C6-7 PREVIOUS FUNCTIONAL STATUS/SOCIAL/FAMILY SUPPORTS:: Lianna lives in [place] with her , Eloy. Their children are adults and all live in [place]. She has five grandchildren and expressed that she hopes to have great grandchildren someday. 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 She is independent at baseline. CURRENT FUNCTIONAL STATUS:: Lianna was sitting up in bed when CM met with her. She reported that she was feeling better today. She has a chest tube placed currently to help resolve her PTX. She stated that she is still smoking, and feels that it might be too late for her to quit now. CM provided information on smoking cessation, which she accepted. CM will continue to follow. ADVANCE DIRECTIVES:: None on file. Has patient been provided with info about the portal/API?: No Did the patient sign up for the portal?: No CODE STATUS:: Full Code INSURANCE COVERAGE / FINANCIAL ISSUES:: [facility]/ [place] CURRENT HOME/COMMUNITY SERVICES/EQUIPMENT:: Lianna currently does not have any equipment or services in the community. PRIMARY CARE PHYSICIAN:: Sue Rodney POTENTIAL DISCHARGE NEEDS:: Evaluations for further needs, follow up ap pointments. PATIENT/FAMILY EDUCATION NEEDS:: Review discharge instructions regarding activity levels and medications, discussion of self care needs and goals of care. ANTICIPATED BARRIERS TO DISCHARGE:: None identified at this time. TRANSPORTATION:: Private vehicle by her family. PLAN:: Anticipate Lianna will return home with no additional services when medically cleared. Her will drive her home when ready. She will follow up with her PCP and discharge plan of care. CM will continue to follow.
[2020-01-03] MEDS: Atorvastatin 40 MG TAB 80 MG PO (20:25)
[2020-01-03] MEDS: Acetaminophen 500 MG TAB 1000 MG PO (20:36)
--- NOTE | 2020-01-04 05:57 | DI.RAD_ITS ---
EXAM: XR PORTABLE CHEST AP CLINICAL HISTORY: s/p PTX TECHNIQUE: 2D digital imaging was performed. COMPARISON: CR XR PORTABLE CHEST AP from 01/03/2020 FINDINGS: A catheter is again noted in the lateral left upper chest. No pneumothorax is visible. There is und erlying pulmonary scarring. The heart size remains normal. No effusion is seen. IMPRESSION: No visible pneumothorax. DATA REPOSITORY: RADIATION DOSE DELIVERED:
--- NOTE | 2020-01-04 06:41 | DI.VRAD_ITS ---
PROCEDURE INFORMATION: Exam: XR Chest, 1 View Exam date and time: 01/04/2020 5:58 AM Age: 74 years old Clinical indication: Condition or disease; Other: F/u ptx; Prior surgery; Surgery date: 3-7 days post-operative; Surgery type: Chest tube TECHNIQUE: Imaging protocol: XR of the chest Views: 1 view. COMPARISON: CR XR PORTABLE CHEST AP 01/03/2020 10:18 AM FINDINGS: Tubes, catheters and devices: Left pigtail chest tube is present with the loop over the left upper lobe. Lungs: There is hyperexpansion of the lungs. There is no alveolar consolidation. Pleural space: Unremarkable. No pleural effusion. No pneumothorax. Heart/Mediastinum: Unremarkable. No cardiomegaly. Bones/joints: Unremarkable. Other findings: Arteriosclerotic changes are identified. IMPRESSION: Hyperexpanded lungs suggesting underlying COPD. Dictated and Authenticated by: Speedy Sanchez MD. Ordering:RENNY Whaley MD
[2020-01-04 07:55] VITALS: O2SAT 91
[2020-01-04] MEDS: Tiotropium Bromide-Respimat 10 PUFF INH IH (07:57)
[2020-01-04] MEDS: Budesonide/Formoterol 160/4.5 6 GM 60 PUFF INH IH (07:58)
[2020-01-04] MEDS: Aspirin E.C. 81 MG TABEC PO (09:05)
[2020-01-04] MEDS: Lisinopril 10 MG TAB PO (09:05)
[2020-01-04] MEDS: Triamcinolone 0.1% OINT 15 GM TUBE TP ×2 (09:07→13:11)
[2020-01-04] MEDS: Acetaminophen 325 MG TAB PO (09:07)
[2020-01-04] MEDS: Ketoconazole 2% CREAM 15 GM TUBE TP (09:07)
[2020-01-04 09:10] VITALS: RESP 18; O2SAT 97
--- NOTE | 2020-01-04 11:51 | DSE_ITS ---
Date of service: 01/04/20 Time of Service: 11:51 DS: Diagnosis Discharge Diagnosis (1) Lung cancer: Status: Chronic (2) Ruptured emphysematous bleb of lung: Status: Acute (3) Pneumothorax on left: Status: Acute (4) Smoker: Status: Acute (5) COPD (chronic obstructive pulmonary disease): Status: Chronic Discharge Plan Disposition Patient Disposition: HOME Condition: Improving Discharge Details Chief Complaint: RespSymp Clinical Impression: Pneumothorax on left, Smoker, COPD with acute exacerbation Reason For Visit: ACUTE PTX SECONDARY TO BLEB Admit Date/Time: 01/02/20 14:00 Admit Provider: Jovana Rueda Attending Provider: Jovana Rueda Primary Care Provider: Sue Rodney ED Provider: Idania Peralta Hospital Course Hospital Course: This patient presented to the emergency department with a several day history of left-sided chest pain and increased shortness of breath and coughing. She was diagnosed with a left pneumothorax as a result of a ruptured bleb. The patient does have known COPD and has been treated for lung cancer in the past with radiation. She had a pigtail catheter placed in the emergency department with resolution of the pneumothorax. The pigtail was clamped on hospital day 1. On hospital day 2 chest x-ray showed that her lung was still inflated so the catheter was removed. The hospitalist service was consulted and felt that her COPD was adequately managed. They did recommend follow-up with her primary care physician due to her elevated hemoglobin A1c and prediabetic status. On the day of discharge the patient was afebrile. Her lungs were clear to auscultation bilaterally. She will follow-up with her primary care physician and also with the surgical service after having a chest x-ray. Home Meds and New Rx's Prescriptions: Continued (DME) Space Chamber Plus 1 EACH spacer 1 ea Miscellaneous PRN Qty: 1 RF: 0 Breo Ellipta 200-25 mcg/dose blister with device 1 inh INHALATION DAILY Qty: 60 RF: 6 albuterol sulfate [ProAir HFA] 90 mcg/actuation HFA aerosol inhaler 2 puff Inhalation Q4H PRN Qty: 2 RF: 4 aspirin 81 mg tablet,delayed release (DR/EC) 81 mg PO DAILY Qty: 30 RF: 12 atorvastatin 80 mg tablet 80 mg PO QPM Qty: 90 RF: 4 lisinopril 10 mg tablet 10 mg PO Q24H Qty: 90 RF: 3 Spiriva with HandiHaler 18 mcg capsule, w/inhalation device 18 mcg Inhalation DAILY Qty: 1 RF: 12 acetaminophen [Tylenol] 325 mg Tablet 325 mg PO DAILY RF: 0 metoprolol tartrate 50 mg Tablet 50 mg PO BID RF: 0 Discharge Instructions Additional Instructions: It is okay to remove the dressing and shower. Replace with a Bandaid until healed. The suture will need to be removed in 7-10 days Call for increased shortness of breath or chest pain. The surgical office will contact you to schedule and chest Xray and appointment on 01/[address] Rueda. You can continue light activities. Do not do heavy lifting for a week or two. Referrals: Jovana Rueda DO [OSTEOPATHIC DOCTOR] - 01/08/20 Activity:: Light for 1-2 weeks Equipment/Supplies:: No Equipment Needed Diet:: As Tolerated Discharge Orders Discharge Orders: Discharge Order (Routine); Ordered 01/04/20 Ordered By: Tosin Campos DS: Summary Status at Discharge Functional status at discharge: independent ambulation Overall status at discharge: patient is progressing back to baseline Mental Status: mental status grossly normal Speech and Movement: speech and movement normal Mood: congruent mood Affect: normal affect Exam Psych Mental Status: mental status grossly normal Speech and Movement: speech and movement normal Mood: congruent mood Affect: normal affect DS: Data Vitals/I&O Vitals and I&O: Vital Signs Temperature 96.8 F L 01/03/20 23:54 Temperature Source Tympanic 01/03/20 23:54 Pulse 62 01/03/20 23:54 Pulse Rhythm Regular 01/04/20 01:03 Pulse 65 01/02/20 23:00 Respiratory Rate 18 01/03/20 23:54 Respiratory Effort 01/04/20 01:03 Respiratory Depth Normal 01/04/20 01:03 Respiratory Pattern Normal 01/04/20 01:03 Blood Pressure 116/70 01/03/20 23:54 Blood Pressure Mean 78 01/02/20 20:38 Blood Pressure Position Supine 01/02/20 16:33 Pulse Oximetry 91 L 01/04/20 07:55 Oxygen Delivery Method Room Air 01/04/20 07:55 Oxygen Flow Rate 0 06/13/20 07:55 Fraction of Inspired Oxygen (FIO2) 30 01/02/20 11:13 Pain Level 0 01/03/20 23:54 Comment 01/03/20 19:20 Intake & Output 01/03/20 01/03/20 01/04/20 11:59 23:59 11:59 Intake Total 940 / 2540 1600 / 2540 Output Total 950 / 1650 700 / 1650 1210 / 1210 Balance -10 / 0 900 / 890 -1210 / -1210 Weight 119 lb 4.321 oz 119 lb 11.376 oz Intake: IV Oral 930 / 2520 1590 / 2520 Output: Chest Tube Drainage Urine 950 / 1650 700 / 1650 1200 / 1200 Other: Urine Color Yellow Yellow Straw Urine Appearance Clear Clear Clear Urine Odor Strong None None Voiding Methods Bedside Commode Bedside Commode Bedside Commode [facility] Medical History Abnormal mammogram of left breast (Acute) Abnormal weight loss (Chronic 04/18/12) 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 Tx'ed w/XRT only in 2019 Muscle spasms of neck (Resolved 01/29/18) Nasal bleeding (Resolved) Nodule of right lung (Chronic 07/11/16) 2017 - patient reports that this was biopsied at [facility] in [place], and has been followed with PET/CT and was told that it is not cancerous 2019 - R upper lobe malignant neoplasm per [facility], completed radiation 06/2019. Following NSTEMI (non-ST elevated myocardial infarction) (Ruled-out) Oxygen dependent (Resolved) Peripheral vascular disease (Chronic) Pneumonia (Resolved ~09/2019) Polyp of colon (Resolved) PVD (peripheral vascular disease) Ruptured emphysematous bleb of lung (Acute) Smoker (Chronic) Quit approx. October 05, 2018 while in-patient. Has not smoked since. 03/20/19 - Admits to 1 cigaret 1-2 per week. 12/19/19 - smoking 3-4 /day Spontaneous pneumothorax (Acute) Tubular adenoma (Chronic 03/07/16) Colonoscopy 03/07/16 - 5 yr plan UPJ obstruction, acquired (Chronic) Uvulitis (Acute) Surgical History Biopsy of breast R cyst aspiration many years ago Cholecystectomy (~01/2009) Colonoscopy - MAC (03/07/16) Dr Parisi excision CIS R buttock 2009 History of lung biopsy (Acute ~2015) Hysterectomy, Laproscopic (~1974) fibroid uterus ovaries remain Open Carpal Tunnel release left Status post breast biopsy (Inactive) Status post carpal tunnel release (Inactive) Status post cholecystectomy (Inactive) Surgery EXC/DEST INTVRT DISC NOS, 1992 C6-7 Family History Mother , 65 Cancer Sister , 65 Breast cancer Father , 75 Heart disease Sister Cancer Sister No problems noted. Brother Bone cancer Lung cancer Daughter No problems noted. Daughter No problems noted. Son No problems noted. Brother No problems noted. Maternal Grandfather No problems noted. Paternal Grandfather No problems noted. Maternal Grandmother No problems noted. Paternal Grandmother No problems noted. Social History Smoking/Tobacco Use Status: Current-Occasional Tobacco Type: cigarettes Years smoked: 50 Tobacco: How many years used: 55 Quit status: has quit before Counseling given: patient declined Alcohol Intake: never Drug use: Never Substance use type: does not use Details: Quit while in-patient. Has been 3 weeks. Caregiver/Support person: No Household members: spouse Housing: house Communication Needs: None Do you need help understanding health information?: Never Pets and animals: Yes Pets and animals: dog(s) Sexually active: No Do you think of yourself as: straight/heterosexual Current gender identity: female What is your relationship status?: How often do you talk on the phone with friends or family?: three or more times per week How often do you get together with friends or relatives?: once per week How often do you attend nondenominational or lutheran services?: decline to answer Do you belong to any clubs or organized social groups?: no Panel score (0-1 are the most socially isolated patients): 2 What type of physical activity do you participate in: walking Duration: < 15 minutes/day Frequency: daily Chloe/Gnosticism: Muslim Special chloe needs: No Seatbelt use: always Drive intox or ride w/intox otr flatbed driver: No Do you feel safe at home: Yes Do you feel safe in your relationship?: Yes
[2020-01-04 12:35] VITALS: BP 119/65; PULSE 72; RESP 17; TEMP 37; O2SAT 91
--- NOTE | 2020-01-04 15:55 | PDOC.CMDIS ---
- If Service Date Differs Date of service: 01/04/20 Time of Service: 15:55 LACE Index Scoring Tool - Questions: Length of Stay (in days): 3 Acuity (Admit via E.D.?): Yes Comorbidities: Previous M.I., Chronic Pulmonary Disease, Any Tumor E.D. Visits: 1 - Answers: Total Score: 12 Risk of Readmission: High Risk Care Management Discharge Reason for Hospitalization: Acute PTX Secondary to Bleb Discharge Plan: Lianna will return home with no additional services at this time. She will follow up with her PCP and discharge plan of care. Her will drive her home via private vehicle. CM provided her with information and resources for smoking cessation. She is happy to be returning home. Patient/Family Education Needs: Review discharge instructions regarding activity levels and medications, discussion of self care needs including ask me three and goals of care.
== END 2020-01-04 13:26 | disposition home or self-care (01) | DRG 191 ==
LOC: ER 15:15 → ICU 15:55 → MS 01-03 11:24 → ICU 01-03 11:25
PROVIDERS: Internal Medicine; Admitting Provider Surgery; Emergency Provider Physician Assistant; Visit Provider Surgery
DX: J43.8 Other emphysema (principal); J93.12 Secondary spontaneous pneumothorax; F17.210 Nicotine dependence, cigarettes, uncomplicated; R09.02 Hypoxemia; R73.01 Impaired fasting glucose; Z85.118 Personal history of other malignant neoplasm of bronchus and lung; Z92.3 Personal history of irradiation; I10 Essential (primary) hypertension; E78.5 Hyperlipidemia, unspecified; Z86.73 Personal history of transient ischemic attack (TIA), and cerebral infarction without residual deficits; Z03.818 Encounter for observation for suspected exposure to other biological agents ruled out
CPT/HCPCS: 32551; 36415; 71045; 80048; 80053; 93005; 94640; 94644; 96374; 96375; 96376; 99223; 99232; 99238; 99253; 99285; U0003; 83036; 83735; 84484; 85025; 85610; 85730; 93010; 99222; J2405; J2930; J3010; J3490

== ENCOUNTER 2020-01-08 02:41 | Outpatient (CLI) | payer MEDICARE, SELFPAY ==
--- NOTE | 2020-01-08 13:30 | DI.RAD_ITS ---
EXAM: XR CHEST 1V IN DI DEPT CLINICAL HISTORY: Follow up left pneumothorax J93.9 TECHNIQUE: 2D digital imaging was performed. COMPARISON: No exams were available for comparison FINDINGS: The previously noted left chest catheter has been removed. No pneumothorax is seen. The lungs appea r clear. There are underlying emphysematous and fibrotic changes. The heart size is normal. IMPRESSION: No evidence of pneumothorax status post removal of left chest catheter. DATA REPOSITORY: RADIATION DOSE DELIVERED:
== END 2020-01-08 03:01 ==
PROVIDERS: Visit Provider Surgery
DX: J93.83 Other pneumothorax; R09.02 Hypoxemia; C34.90 Malignant neoplasm of unspecified part of unspecified bronchus or lung; J43.8 Other emphysema; F17.210 Nicotine dependence, cigarettes, uncomplicated
CPT/HCPCS: 99213; 71045

== ENCOUNTER 2020-03-16 00:44 | Outpatient (CLI) | payer MEDICARE, SELFPAY ==
--- NOTE | 2020-03-16 | DI.CT_ITS ---
EXAM: CT CHEST W CLINICAL HISTORY: PRIMARY RUL LUNG CA,C34.11,S/P RADIATION, ? STATUS OF DISEASES TECHNIQUE: CT examination of chest was performed with bolus infusion of 70 cc of Omnipaque 350 COMPARISON: CT CHEST WITHOUT CONTRAST from 06/08/2016 CT CHEST WITH CONTRAST from 11/29/2016 CT CHEST WITHOUT CONTRAST from 02/13/2018 CT - from 10/05/[address] CHEST WO from 11/21/2019 FINDINGS: Images obtained through the upper abdomen show unremarkable appearance of visualized portions of th e liver, spleen and pancreas. Adrenals appear normal bilaterally. There is a large upper pole right renal cyst. There also appears to be significant right hydronephrosis. This is been noted on prior examinations including May 2016. Patient reportedly has a history of right upper lobe lung carcinoma. On today's examination the find ings in the right upper lobe are unchanged from prior CT November 21, 2019. No change in mildly enlarge d pretracheal mediastinal node. No new mediastinal or hilar mass or adenopathy. Multiple pulmonary nodules are noted, unchanged from prior studies including a right major fissure nodule and nodules se en peripherally in the left lung base. No pleural effusion seen. No pneumothorax. Tracheobronchial tree appears intact. There is moderate to severe underlying central lobular emphysema. No evidence of pulmonary embolic disease. No evidence of thoracic aortic dissection or aneurysm. No supraclavicular or axillary adenopathy seen. IMPRESSION: Stable appearance of right upper lobe lung carcinoma and multiple stable pulmonary nodules as describ ed above. No new evidence of metastatic disease. Right hydronephrosis noted, also probably stable. RADIATION DOSE DELIVERED: 404.35mGy.cm Total DLP
[2020-03-16 13:55] LABS: CREATININE 0.95 mg/dL (0.55-1.02); Estimated GFR 57.66 (mL/min/1.73m2)
[2020-03-16] MEDS: Omnipaque 350 MG/ML 100 ML BTL IV (14:27)
== END 2020-03-16 01:04 ==
PROVIDERS: Visit Provider Nurse Practitioner Family
DX: C34.11 Malignant neoplasm of upper lobe, right bronchus or lung (principal); R91.8 Other nonspecific abnormal finding of lung field
CPT/HCPCS: 71260; 82565; J3490

== ENCOUNTER 2020-05-01 19:43 | Observation (INO) | payer MEDICARE, SELFPAY ==
[2020-05-01] VITALS (46 sets, daily range): BP systolic 88–171; BP diastolic 50–91; PULSE 84–134; RESP 8–42; TEMP 36.6; O2SAT 90–100
--- NOTE | 2020-05-01 19:30 | RT.EKG_ITS ---
APPROVED REPORT Exam: Resting ECG Patient Location: E HR:112 bpm ECG Measurements Heart Rate 112 AXIS DE 164 P 76 QRSd 91 QRS 77 QT 348 T -19 QTc 475 Conclusion EKG 19: 51 Rate 112, QTc 475, QRS 91, sinus tachycardia, notable artifact throughout, no clear evidence of STEMI . Will get repeat EKG
--- NOTE | 2020-05-01 19:45 | DI.CT_ITS ---
EXAM: CT CHEST PE CTA CLINICAL HISTORY: sob, pleuritic chest pain, r/o PE. TECHNIQUE: Imaging Protocol: Axial CT angiography was performed with multi-slice acquisition and mu lti-planar and/or 3D reconstructions. CONTRAST MATERIAL: Intravenous: Omnipaque 350 Contrast volume:61 mL COMPARISON: CT - from 10/05/2018 CT - from 10/05/2018 FINDINGS: Pulmonary Arteries: No evidence of filling defect to suggest pulmonary emboli. Tracheobronchial tree: Patent where visualized. Mediastinum and Iris: No dominant adenopathy or fluid collection. Pulmonary parenchyma: Stable small bilateral pulmonary nodules. Stable right upper lobe opacity cons istent with the patient's known history of lung carcinoma. Centrilobular pulmonary emphysema. Atele ctatic changes seen in the lingula and left lower lobe. Mild dependent atelectasis in the lung bases . Pleura: There has been interval placement of a left chest tube. There is a residual small left pneum othorax present. No right pneumothorax is seen. Heart: The heart is not dilated. Mild coronary artery calcification. A small pericardial effusion is seen. Aorta: Thoracic aorta non-dilated. No evidence of dissection. Atherosclerosis. Upper abdomen: Status post cholecystectomy. Bones: Degenerative changes. Tubes, Catheters, and Lines: Left chest tube in place. Soft tissues: Unremarkable. IMPRESSION: 1. No evidence of pulmonary embolism, thoracic aortic dissection or aneurysm. 2. Interval placement of a left chest tube. Small residual left pneumothorax occupying less than 20 percent of the left hemithorax. 3. Stable pulmonary opacity in the right upper lobe suggesting stable lung carcinoma given the patien t's history. Otherwise stable appearance of the chest. RADIATION DOSE DELIVERED: 345.79mGy.cm Total DLP DATA REPOSITORY: All CT scans at this facility are submitted to the National Radiology Data Registry (NRDR) Dose Index Registry (DIR) with the [employer] (A[employer]). RADIATION OPTIMIZATION: All CT scans at this facility use at least one of these dose optimization te chniques: automated exposure control; mA and/or kV adjustment per patient size (includes targeted exa ms where dose is matched to clinical indication); or iterative reconstruction.
--- NOTE | 2020-05-01 19:59 | DI.RAD_ITS ---
EXAM: XR PORTABLE CHEST AP CLINICAL HISTORY: sob, decreased breath sounds on L, r/o PTX TECHNIQUE: 2D digital imaging was performed. COMPARISON: CR XR CHEST 1V IN DI DEPT from 01/08/2020 FINDINGS: MEDIASTINUM: Normal. No mediastinal shift. HEART: Normal. PULMONARY VASCULATURE: Normal. LUNGS: There is hyperexpansion of the lungs consistent with underlying COPD. Atelectatic changes are seen in the left lung. PLEURAL SPACE: There is a left pneumothorax occupying 50 percent of the left hemithorax. No pleural effusion. BONE:Within normal limits for the patient's age. OTHER FINDINGS:Normal. IMPRESSION: Left pneumothorax occupying 50 percent of the left hemithorax. No mediastinal shift. DATA REPOSITORY: RADIATION DOSE DELIVERED:
[2020-05-01 20:04] LABS: Abs Immature Grans 0.06 10^3/uL (0.0-0.06); Absolute Basophil Count 0.02 10^3/uL (0.0-0.2); Absolute Eosinophil Count 0.04 10^3/uL (0.0-0.7); Absolute Monocyte Count 0.75 10^3/uL (0.1-0.8); Absolute Neutrophil Count 4.45 10^3/uL (1.2-6.7); Basophils % 0.3; Eosinophils % 0.5; HCT 45.7 % (36.0-46.0); HGB 14.2 g/dL (11.2-15.7); Immature Grans % 0.8; MCH 26.9 pg (27.0-33.0); MCHC 31.1 % (32.0-36.0); MCV 86.7 fL (80-95); MPV 12.8 fL (8.0-11.0); Monocytes % 9.6; Neutrophils % 56.8; Nucleated RBC 0 %; Platelet Count 164 10^3/uL (130-400); RBC 5.27 10^6/uL (3.93-5.22); RDW 13.2 % (11.7-14.6); RDW-SD 41.6 fL; WBC 7.82 10^3/uL (4.4-10.8)
[2020-05-01] MEDS: methylPREDNISolone SUCC 125 MG VIAL IVP (20:05)
[2020-05-01] MEDS: Albuterol/Ipratropium 3 ML UPD VIAL UPD (20:06)
[2020-05-01 20:20] LABS: ALT 9 U/L (14-59); AST 26 U/L (15-37); Albumin 3.8 g/dL (3.4-5.0); Alkaline Phosphatase 106 U/L (46-116); Anion Gap 9.3 mmol/L (3-11); BUN 14 mg/dL (7-18); CO2 25.7 mmol/L (21.0-32.0); CREATININE 1.19 mg/dL (0.55-1.02); Calcium 9.6 mg/dL (8.5-10.1); Chloride 100 mmol/L (98-107); Estimated GFR 44.46 (mL/min/1.73m2); Glucose 224 mg/dL (74-106); Potassium 4.8 mmol/L (3.5-5.1); Sodium 135 mmol/L (136-145); Total Protein 8.3 g/dL (6.4-8.2)
[2020-05-01 20:22] LABS: PTT Activated 24.7 sec (21.0-31.4); Prothrombin Time 9.9 sec (9.3-11.0); Troponin I 0.11 ng/mL (<0.06)
[2020-05-01] MEDS: Normal Saline 500 ML IV (20:35)
--- NOTE | 2020-05-01 20:45 | RT.EKG_ITS ---
APPROVED REPORT Exam: Resting ECG Patient Location: E HR:99 bpm ECG Measurements Heart Rate 99 AXIS NH 158 P 88 QRSd 85 QRS 85 QT 377 T 67 QTc 483 Conclusion EKG 21: 19 Rate 99, intervals stable, sinus rhythm, no significant ST elevations or depressions, no evidence of STEMI
[2020-05-01] MEDS: Omnipaque 350 MG/ML 100 ML BTL 61 ML IJ (21:05)
[2020-05-01] MEDS: Normal Saline Flush 10 ML SYR IVP (21:05)
[2020-05-01] MEDS: Normal Saline - Diluent 50 ML VIAL IV (21:07)
--- NOTE | 2020-05-01 21:14 | ED.GENADUL_ITS ---
Discharge Plan Disposition Patient Disposition: [facility] INPATIENT Condition: Improving Discharge Details Clinical Impression: Pneumothorax on left, Non-STEMI (non-ST elevated myocardial infarction) Primary Care Provider: Sue Rodney ED Provider: Rc Garrison Home Meds and New Rx's Prescriptions: No Action (DME) Space Chamber Plus 1 EACH spacer 1 ea Miscellaneous PRN Qty: 1 RF: 0 Breo Ellipta 200-25 mcg/dose blister with device 1 inh INHALATION DAILY Qty: 60 RF: 6 albuterol sulfate [ProAir HFA] 90 mcg/actuation HFA aerosol inhaler 2 puff Inhalation Q4H PRN Qty: 2 RF: 4 aspirin 81 mg tablet,delayed release (DR/EC) 81 mg PO DAILY Qty: 30 RF: 12 atorvastatin 80 mg tablet 80 mg PO QPM Qty: 90 RF: 4 lisinopril 10 mg tablet 10 mg PO Q24H Qty: 90 RF: 3 Spiriva with HandiHaler 18 mcg capsule, w/inhalation device 18 mcg Inhalation DAILY Qty: 1 RF: 12 acetaminophen [Tylenol] 325 mg Tablet 325 mg PO DAILY RF: 0 metoprolol tartrate 50 mg Tablet 50 mg PO BID RF: 0 Medical Decision Making 75-year-old female with a past medical history of smoking, COPD, pneumothoraces in the past, presents today for evaluation of sudden onset left- sided shortness of breath that began 2 hours ago. Patient states that she was sitting and suddenly she developed pain in her left chest with associated shortness of breath. She has had a cough over the last few days which she describes is secondary to postnasal drip. She states that her symptoms currently with her chest pain is similar to her previous pneumothoraces. On EMS arrival the patient was in the 70s on no oxygen, EMS gave 10 L of oxygen she came up to the low 90s. No other complaints at this time. No other modifying factors. She denies arm neck or shoulder pain. She denies any numbness tingling or weakness. Physical exam demonstrates decreased breath sounds on the left-hand side, bedside ultrasound demonstrates no lung sliding on the left, and also normal lung sliding on the right. Scenario is certainly concerning for left-sided pneumothorax, chest x-ray was performed and demonstrated 50% left- sided pneumo. Patient would not tolerate lying flat. A Thora vent chest tube was placed in the left anterior chest wall just over the third rib, consent was signed, patient tolerated procedure well. CT scan was then subsequently ordered for reevaluation as it was an atypical pattern noted on the patient's right chest wall on initial x-ray. CT scan shows notable improvement of the pneumothorax, no evidence of pulmonary embolism, there is also a stable ill- defined pulmonary opacification of the right upper lobe suggesting a stable right upper lobe lung carcinoma. This will require further investigation. No evidence of other abnormality. Patient is feeling notably better after chest tube placement, she is now on 4 L of supplemental oxygen, heart rate is down to 100, and O2 saturation is 100% currently. Laboratory work-up does show slightly atypical elevation in her troponin at 0.11, initial EKG had notable artifact however repeat EKG shows no evidence of STEMI or other significant concerning abnormality. [facility] was consulted and I did discuss the case with and he feels that the scenario is likely secondary to demand ischemia and not ACS. I would agree with this. Patient is on metoprolol atorvastatin and aspirin already, recommendations from [facility] is to continue these, trend the troponins, continue to evaluate as the likely cause of the symptomatology is her pneumothorax. Patient will be admitted here per [facility] recommendation. Dr. Rueda will be on consult for surgery for management of the vent, Dr. Guzman will be the admitting hospitalist for management of the end STEMI. I have extensively reviewed the treatment plan with the patient. I have addressed all patient concerns at this time. I have also discussed the plan with the admitting physician and they agree with the current assessment and plan and have agreed to assume responsibility for the patient. All parties demonstrate verbal understanding and agreement with our assessment and plan at this time. Also of note [facility] recommends holding off on any heparinization at this point. EKG 19: 51 Rate 112, QTc 475, QRS 91, sinus tachycardia, notable artifact throughout, no clear evidence of STEMI. Will get repeat EKG EKG 21: 19 Rate 99, intervals stable, sinus rhythm, no significant ST elevations or depressions, no evidence of STEMI. HPI General Date/Time Provider Initiated Documentation: 05/01/20 20:12 . HPI Narrative: 75-year-old female with a past medical history of smoking, COPD, pneumothoraces in the past, presents today for evaluation of sudden onset left- sided shortness of breath that began 2 hours ago. Patient states that she was sitting and suddenly she developed pain in her left chest with associated shortness of breath. She has had a cough over the last few days which she describes is secondary to postnasal drip. She states that her symptoms currently with her chest pain is similar to her previous pneumothoraces. On EMS arrival the patient was in the 70s on no oxygen, EMS gave 10 L of oxygen she came up to the low 90s. No other complaints at this time. No other modifying factors. She denies arm neck or shoulder pain. She denies any numbness tingling or weakness. Related Data Home Medications Medication Instructions Recorded Confirmed Space Chamber Plus #1 06/09/16 01/08/20 fluticasone furoate 200 1 inh INHALATION DAILY #60 each 12/18/18 05/01/20 mcg-vilanterol 25 mcg/dose inhalation powder albuterol sulfate 90 mcg/actuation 2 puff INHALATION Q4H PRN #2 10/30/19 05/01/20 aerosol inhaler inhaler aspirin 81 mg tablet,delayed 81 mg PO DAILY #30 tab 11/11/19 05/01/20 release atorvastatin 80 mg tablet 80 mg PO QPM #90 tab 11/11/19 05/01/20 lisinopril 10 mg tablet 10 mg PO Q24H #90 tab 11/11/19 05/01/20 tiotropium bromide 18 mcg capsule 18 mcg INHALATION DAILY #1 tab-cap 11/11/19 05/01/20 with inhalation device acetaminophen [Tylenol] 325 mg PO DAILY 01/02/20 05/01/20 metoprolol tartrate 50 mg PO BID 01/02/20 05/01/20 Previous Rx's Medication Instructions Recorded fluticasone furoate 200 1 inh INHALATION DAILY #60 each 12/18/18 mcg-vilanterol 25 mcg/dose inhalation powder albuterol sulfate 90 mcg/actuation 2 puff INHALATION Q4H PRN #2 10/30/19 aerosol inhaler inhaler aspirin 81 mg tablet,delayed 81 mg PO DAILY #30 tab 11/11/19 release atorvastatin 80 mg tablet 80 mg PO QPM #90 tab 11/11/19 lisinopril 10 mg tablet 10 mg PO Q24H #90 tab 11/11/19 tiotropium bromide 18 mcg capsule 18 mcg INHALATION DAILY #1 tab-cap 11/11/19 with inhalation device Allergies Allergy/AdvReac Type Severity Reaction Status Date / Time Tetanus Vaccines and Toxoid Allergy Mild LOCAL Verified 01/08/20 14:23 SWELLING General Stated Complaint: SOB SHIN: 2 Review of Systems All systems reviewed & are unremarkable except as noted in HPI and below PFS Medical History (Updated 05/01/20 @ 21:47 by Rc Garrison DO) Abnormal mammogram of left breast Abnormal weight loss (04/18/12) 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 Tx'ed w/XRT only in 2019 Muscle spasms of neck (01/29/18) Nasal bleeding Nodule of right lung (07/11/16) 2017 - patient reports that this was biopsied at [facility] in [place], and has been followed with PET/CT and was told that it is not cancerous 2019 - R upper lobe malignant neoplasm per [facility], completed radiation 06/2019. Following NSTEMI (non-ST elevated myocardial infarction) Oxygen dependent Peripheral vascular disease Pneumonia (~09/2019) Polyp of colon PVD (peripheral vascular disease) Ruptured emphysematous bleb of lung Smoker Quit approx. October 05, 2018 while in-patient. Has not smoked since. 03/20/19 - Admits to 1 cigaret 1-2 per week. 12/19/19 - smoking 3-4 /day Spontaneous pneumothorax Tubular adenoma (03/07/16) Colonoscopy 03/07/16 - 5 yr plan UPJ obstruction, acquired Uvulitis Surgical History Biopsy of breast R cyst aspiration many years ago Cholecystectomy (~01/2009) Colonoscopy - MAC (03/07/16) Dr Parisi excision CIS R buttock 2009 History of lung biopsy (~2015) Hysterectomy, Laproscopic (~1974) fibroid uterus ovaries remain Open Carpal Tunnel release left Status post breast biopsy Status post carpal tunnel release Status post cholecystectomy Surgery EXC/DEST INTVRT DISC NOS, 1991 C6-7 Family History Mother , 65 Cancer Sister , 65 Breast cancer Father , 75 Heart disease Sister Cancer Sister No problems noted. Brother Bone cancer Lung cancer Daughter No problems noted. Daughter No problems noted. Son No problems noted. Brother No problems noted. Maternal Grandfather No problems noted. Paternal Grandfather No problems noted. Maternal Grandmother No problems noted. Paternal Grandmother No problems noted. Social History Smoking/Tobacco Use Status: Former Tobacco Use Quit Date: 10/05/18 Tobacco: How many years used: 55 Quit status: has quit before Counseling given: patient declined Alcohol Intake: never Drug use: Never Substance use type: does not use Details: Quit while in-patient. Has been 3 weeks. Caregiver/Support person: No Household members: spouse Housing: house Communication Needs: None Do you need help understanding health information?: Never Pets and animals: Yes Pets and animals: dog(s) Sexually active: No Do you think of yourself as: straight/heterosexual Current gender identity: female What is your relationship status?: How often do you talk on the phone with friends or family?: three or more times per week How often do you get together with friends or relatives?: once per week How often do you attend methodist or sikhism services?: decline to answer Do you belong to any clubs or organized social groups?: no Panel score (0-1 are the most socially isolated patients): 2 What type of physical activity do you participate in: walking Duration: < 15 minutes/day Frequency: daily Chloe/Zoroastrian: Jehovah'S Witness Special chloe needs: No Seatbelt use: always Drive intox or ride w/intox wrecker driver: No Do you feel safe at home: Yes Do you feel safe in your relationship?: Yes Exam Narrative Exam Narrative: 1.Const: Well-nourished, Well-developed, appearing stated age 2.Eyes: PERRL, no conjunctival injection, and symmetrical lids. 3.ENT: Atraumatic external nose and ears. Moist MM. Neck: Symmetric, trachea midline, No thyromegaly. 4.CVS: +S1/S2, No murmurs or gallops. Peripheral pulses 2+ and equal in all extremities. Brisk capillary refill in all extremities. 5.RESP: Mild respiratory distress, decreased breath sounds on the left, reduced breath sounds on the right. Minimal wheezes in the bases. 6.GI: Soft, Nontender/Nondistended, No hepatosplenomegaly. No guarding or rebound. 7.MSK: Normocephalic/Atraumatic, Extremities w/o deformity or ttp No cyanosis or clubbing, Normal movement of all extremities 8.Skin: Warm, Dry. No rashes or lesions. 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 Sensation grossly intact, no focal neurologic deficits. 10.Psych: (AAO) x3. Appropriate mood and affect Course Vital Signs Vital signs: Vital Signs Temperature 36.6 C 05/01/20 19:42 Pulse 122 H 05/01/20 19:42 Respiratory Rate 28 H 05/01/20 19:42 Pulse Oximetry 96 05/01/20 19:42 Temperature 36.6 C 05/01/20 19:42 Pulse 113 H 05/01/20 20:31 Pulse 110 H 05/01/20 20:31 Respiratory Rate 31 H 05/01/20 20:31 Respiratory Effort Tripod 05/01/20 19:48 Respiratory Depth Shallow 05/01/20 19:48 Respiratory Pattern Normal 05/01/20 19:48 Blood Pressure 167/91 H 05/01/20 20:31 Blood Pressure Mean 111 05/01/20 20:31 Pulse Oximetry 95 05/01/20 20:31 Respiratory End-tidal CO2 29 05/01/20 20:31 Oxygen Delivery Method Non-Rebreather 05/01/20 20:06 Oxygen Flow Rate 10 05/01/20 19:42 Lab/Test Results Lab/Test Results: Laboratory Tests Range/Units 05/01/20 05/01/20 05/01/20 20:00 20:00 20:00 WBC (4.4-10.8) 10^3/uL 7.82 RBC (3.93-5.22) 10^6/uL 5.27 H Hgb (11.2-15.7) g/dL 14.2 Hct (36.0-46.0) % 45.7 MCV (80-95) fL 86.7 MCH (27.0-33.0) pg 26.9 L MCHC (32.0-36.0) % 31.1 L RDW (11.7-14.6) % 13.2 Plt Count (130-400) 10^3/uL 164 MPV (8.0-11.0) fL 12.8 H Immature Gran % 0.8 Neutrophils % 56.8 Lymphocytes % 32.0 Monocytes % 9.6 Eosinophils % 0.5 Basophils % 0.3 Nucleated RBC % % 0 Absolute Neutrophils (1.2-6.7) 10^3/uL 4.45 Absolute Lymphocytes (1.2-3.4) 10^3/uL 2.50 Absolute Monocytes (0.1-0.8) 10^3/uL 0.75 Absolute Eosinophils (0.0-0.7) 10^3/uL 0.04 Absolute Basophils (0.0-0.2) 10^3/uL 0.02 PT (9.3-11.0) sec 9.9 INR (0.9-1.1) 1.0 APTT (21.0-31.4) sec 24.7 Sodium (136-145) mmol/L 135 L Potassium (3.5-5.1) mmol/L 4.8 Chloride (98-107) mmol/L 100 Carbon Dioxide (21.0-32.0) mmol/L 25.7 Anion Gap (3-11) mmol/L 9.3 BUN (7-18) mg/dL 14 Creatinine (0.55-1.02) mg/dL 1.19 H Estimated GFR/1.73 m2 (mL/min/1.73m2) 44.46 Glucose (74-106) mg/dL 224 H Calcium (8.5-10.1) mg/dL 9.6 Magnesium (1.8-2.4) mg/dL 2.0 Total Bilirubin (0.2-1.0) mg/dL 1.0 AST (15-37) U/L 26 ALT (14-59) U/L 9 L Alkaline Phosphatase (46-116) U/L 106 Troponin I (<0.06) ng/mL 0.11 H* Total Protein (6.4-8.2) g/dL 8.3 H Albumin (3.4-5.0) g/dL 3.8 Procedures Chest Tube Chest Tube 1: Progress: Thora-Vent was placed over the superior border of the third rib midclavicular line on the left-hand side, the area was initially anesthetized with 5 cc of lidocaine with epinephrine. The area was cleansed with chlorhexidine, utilizing sterile technique the Thora vent was placed utilizing the Seldinger technique without the guidewire. Patient tolerated procedure notably well. Good movement of red balloon was noted. The device was then hooked up to suction at 20 intermittent. Patient tolerated procedure well. No complications. Patient had notable improvement of symptomatology.
--- NOTE | 2020-05-01 21:24 | RESPIRATORY ---
Pt brought in for SOB and pain in her chest, NRB on 10L in place with spo2 @ 97%. Cxr showed pneumo on Left side. Dr Garrison placed chest tube and o2 was titrated down to 4L nc. Pt has immediate relief. RN and RT at bedside for CT scan
--- NOTE | 2020-05-01 21:59 | HPE_ITS ---
Date of service: 05/01/20 Time of Service: 21:59 Assessment and Plan Assessment and plan (1) Pneumothorax on left: Status: Acute Assessment and plan: PTX, spontaneous in setting of COPD. Doing well at p resent from respiratory standpoint. Will defer management of chest tube to surgery. Slight elevation troponin is presumably demand ischemia secondary to period of hypoxia. No s/s ACS by symptoms or EKG. Will trend out troponins. No specific treatment required. Reviewed ADs in great detail, with present. Requests DNR. History of Present Illness History of Present Illness Chief Complaint: CP Narrative: 75 female with COPD. Reports chronic/intermittent cough. Tonight after a particularly intense coughing spell noted sudden onset let side pleuritic CP and SOB. On arrival of EMS O2 sat 70% reported. In ER sizeable left PTX noted and chest tube placed. At this point troponin 0.11 noted. Initial EKG sinus tach with poor baseline; f/u EKG after tube WNL. Patient denies CP now, and only CP was that associated with PTX. Actually feels her usual self at this point. ER discussed case with surgery who requested medical admit due to troponin. 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 Tx'ed w/XRT only in 2019 Muscle spasms of neck (01/29/18) Nasal bleeding Nodule of right lung (07/11/16) 2017 - patient reports that this was biopsied at [facility] in [place], and has been followed with PET/CT and was told that it is not cancerous 2019 - R upper lobe malignant neoplasm per [facility] [place], completed radiation 06/2019. Following NSTEMI (non-ST elevated myocardial infarction) Oxygen dependent Peripheral vascular disease Pneumonia (~09/2019) Polyp of colon PVD (peripheral vascular disease) Ruptured emphysematous bleb of lung Smoker Quit approx. October 05, 2018 while in-patient. Has not smoked since. 03/20/19 - Admits to 1 cigaret 1-2 per week. 12/19/19 - smoking 3-4 /day Spontaneous pneumothorax Tubular adenoma (03/07/16) Colonoscopy 03/07/16 - 5 yr plan UPJ obstruction, acquired Uvulitis Surgical History Biopsy of breast R cyst aspiration many years ago Cholecystectomy (~01/2009) Colonoscopy - MAC (03/07/16) Dr Parisi excision CIS R buttock 2008 History of lung biopsy (~2015) Hysterectomy, Laproscopic (~1974) fibroid uterus ovaries remain Open Carpal Tunnel release left Status post breast biopsy Status post carpal tunnel release Status post cholecystectomy Surgery EXC/DEST INTVRT DISC NOS, 1991 C6-7 Family History Mother , 65 Cancer Sister , 65 Breast cancer Father , 75 Heart disease Sister Cancer Sister No problems noted. Brother Bone cancer Lung cancer Daughter No problems noted. Daughter No problems noted. Son No problems noted. Brother No problems noted. Maternal Grandfather No problems noted. Paternal Grandfather No problems noted. Maternal Grandmother No problems noted. Paternal Grandmother No problems noted. Social History Smoking/Tobacco Use Status: Former Tobacco Use Quit Date: 10/05/18 Tobacco: How many years used: 55 Quit status: has quit before Counseling given: patient declined Alcohol Intake: never Drug use: Never Substance use type: does not use Details: Quit while in-patient. Has been 3 weeks. Caregiver/Support person: No Household members: spouse Housing: house Communication Needs: None Do you need help understanding health information?: Never Pets and animals: Yes Pets and animals: dog(s) Sexually active: No Do you think of yourself as: straight/heterosexual Current gender identity: female What is your relationship status?: How often do you talk on the phone with friends or family?: three or more times per week How often do you get together with friends or relatives?: once per week How often do you attend mandaeism or sabianist services?: decline to answer Do you belong to any clubs or organized social groups?: no Panel score (0-1 are the most socially isolated patients): 2 What type of physical activity do you participate in: walking Duration: < 15 minutes/day Frequency: daily Chloe/Jehovah'S Witness: Pentecostalism Special chloe needs: No Seatbelt use: always Drive intox or ride w/intox emergency vehicle driver: No Do you feel safe at home: Yes Do you feel safe in your relationship?: Yes Meds Home Medications and Allergies Home Medications Medication Instructions Recorded Confirmed Type Space Chamber Plus #1 06/09/16 01/08/20 History fluticasone furoate 200 1 inh INHALATION DAILY #60 each 12/18/18 05/01/20 Rx mcg-vilanterol 25 mcg/dose inhalation powder albuterol sulfate 90 mcg/actuation 2 puff INHALATION Q4H PRN #2 10/30/19 05/01/20 Rx aerosol inhaler inhaler aspirin 81 mg tablet,delayed 81 mg PO DAILY #30 tab 11/11/19 05/01/20 Rx release atorvastatin 80 mg tablet 80 mg PO QPM #90 tab 11/11/19 05/01/20 Rx lisinopril 10 mg tablet 10 mg PO Q24H #90 tab 11/11/19 05/01/20 Rx tiotropium bromide 18 mcg capsule 18 mcg INHALATION DAILY #1 tab-cap 11/11/19 05/01/20 Rx with inhalation device acetaminophen [Tylenol] 325 mg PO DAILY 01/02/20 05/01/20 History metoprolol tartrate 50 mg PO BID 01/02/20 05/01/20 History Allergies Allergy/AdvReac Type Severity Reaction Status Date / Time Tetanus Vaccines and Toxoid Allergy Mild LOCAL Verified 01/08/20 14:23 SWELLING Exam Narrative Exam Narrative: VS during my visit 115/60, 92, 36.6, 18, 100% NC. HEENT atraumatic; neck supple, w/o tracheal deviation; lungs diminished but coarse and clear; heart distant but RRR; abdomen soft and NT; extremities w/o edema; neuro Ox3, nonfocal Results Labs Result diagrams: 05/01/20 20:00 05/01/20 20:00 Labs: Laboratory Results - last 24 hr 05/01/20 05/01/20 05/01/20 20:00 20:00 20:00 WBC 7.82 RBC 5.27 H Hgb 14.2 Hct 45.7 MCV 86.7 MCH 26.9 L MCHC 31.1 L RDW 13.2 Plt Count 164 MPV 12.8 H Immature Gran % 0.8 Neutrophils % 56.8 Lymphocytes % 32.0 Monocytes % 9.6 Eosinophils % 0.5 Basophils % 0.3 Nucleated RBC % 0 Absolute Neutrophils 4.45 Absolute Lymphocytes 2.50 Absolute Monocytes 0.75 Absolute Eosinophils 0.04 Absolute Basophils 0.02 PT 9.9 INR 1.0 APTT 24.7 Sodium 135 L Potassium 4.8 Chloride 100 Carbon Dioxide 25.7 Anion Gap 9.3 BUN 14 Creatinine 1.19 H Estimated GFR/1.73 m2 44.46 Glucose 224 H Calcium 9.6 Magnesium 2.0 Total Bilirubin 1.0 AST 26 ALT 9 L Alkaline Phosphatase 106 Troponin I 0.11 H* Total Protein 8.3 H Albumin 3.8 Last Vital Signs Temp 36.6 C 05/01/20 19:42 Pulse 113 H 05/01/20 20:31 Resp 18 05/01/20 20:39 BP 167/91 H 05/01/20 20:31 Pulse Ox 100 05/01/20 20:39 COVID-19 Screening Have you,or household,traveled outside [place] in last 14 days?: No Had IN PERSON contact w/suspected or confirmed C-19 person: No
--- NOTE | 2020-05-01 22:02 | W.SURGCON ---
Date of service: 05/01/20 Time of Service: 22:02 Assessment and Plan Assessment and plan (1) Pneumothorax on left: Status: Acute Assessment and plan: PTX catheter palced by ED repeat CXR pd pulm toilet (2) Non-STEMI (non-ST elevated myocardial infarction): Status: Acute (3) COPD (chronic obstructive pulmonary disease): Status: Chronic (4) Lung cancer: Status: Chronic (5) Ruptured emphysematous bleb of lung: Status: Acute (6) Smoker: Status: Acute (7) Primary malignant neoplasm of cervix: Status: Acute (8) Peripheral vascular disease: Status: Chronic (9) Impaired fasting glucose: Status: Chronic (10) Hyperlipidemia: Status: Chronic Qualifiers: Hyperlipidemia type: mixed hyperlipidemia Qualified Code(s): E78.2 - Mixed hyperlipidemia (11) Essential hypertension: Status: Chronic History of Present Illness Narrative: Pt has a Hx of severe COPD secondary to smoking. She is well know to me. She has had prior PTX. She has lg emphsematous blebs. She is not a candidate for surgery. She has had b/l lung cancer that was treated w/ out surgery. She has recently stopped smoking. She does also have a known Hx of CAD. She was tachycardiac in ED and prob had some cardiac strain. She did have tropnin release. The ED did d/w cards at [facility]. Currently she is asymp, since the PTX was relieved. They are inclined to watch her at this time. Consults Consult date: 05/01/20 Requesting physician: Rc Garrison Review of Systems Narrative: SOB and haiving chest pain. 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 Tx'ed w/XRT only in 2019 Muscle spasms of neck (01/29/18) Nasal bleeding Nodule of right lung (07/11/16) 2017 - patient reports that this was biopsied at [facility] in [place], and has been followed with PET/CT and was told that it is not cancerous 2019 - R upper lobe malignant neoplasm per [facility], completed radiation 06/2019. Following NSTEMI (non-ST elevated myocardial infarction) Oxygen dependent Peripheral vascular disease Pneumonia (~09/2019) Polyp of colon PVD (peripheral vascular disease) Ruptured emphysematous bleb of lung Smoker Quit approx. October 05, 2018 while in-patient. Has not smoked since. 03/20/19 - Admits to 1 cigaret 1-2 per week. 12/19/19 - smoking 3-4 /day Spontaneous pneumothorax Tubular adenoma (03/07/16) Colonoscopy 03/07/16 - 5 yr plan UPJ obstruction, acquired Uvulitis Surgical History Biopsy of breast R cyst aspiration many years ago Cholecystectomy (~01/2009) Colonoscopy - MAC (03/07/16) Dr Parisi excision CIS R buttock 2009 History of lung biopsy (~2015) Hysterectomy, Laproscopic (~1974) fibroid uterus ovaries remain Open Carpal Tunnel release left Status post breast biopsy Status post carpal tunnel release Status post cholecystectomy Surgery EXC/DEST INTVRT DISC NOS, 1992 C6-7 Family History Mother , 65 Cancer Sister , 65 Breast cancer Father , 75 Heart disease Sister Cancer Sister No problems noted. Brother Bone cancer Lung cancer Daughter No problems noted. Daughter No problems noted. Son No problems noted. Brother No problems noted. Maternal Grandfather No problems noted. Paternal Grandfather No problems noted. Maternal Grandmother No problems noted. Paternal Grandmother No problems noted. Social History Smoking/Tobacco Use Status: Former Tobacco Use Quit Date: 10/05/18 Tobacco: How many years used: 55 Quit status: has quit before Counseling given: patient declined Alcohol Intake: never Drug use: Never Substance use type: does not use Details: Quit while in-patient. Has been 3 weeks. Caregiver/Support person: No Household members: spouse Housing: house Communication Needs: None Do you need help understanding health information?: Never Pets and animals: Yes Pets and animals: dog(s) Sexually active: No Do you think of yourself as: straight/heterosexual Current gender identity: female What is your relationship status?: How often do you talk on the phone with friends or family?: three or more times per week How often do you get together with friends or relatives?: once per week How often do you attend buddhism or cheondoism services?: decline to answer Do you belong to any clubs or organized social groups?: no Panel score (0-1 are the most socially isolated patients): 2 What type of physical activity do you participate in: walking Duration: < 15 minutes/day Frequency: daily Chloe/Christian: Restorationism Special chloe needs: No Seatbelt use: always Drive intox or ride w/intox class a 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: No Do you feel safe at home: Yes Do you feel safe in your relationship?: Yes Exam Chest Chest: normal inspection of the chest Breast inspection: normal inspection of the breasts Resp Effort & Inspection: normal respiratory effort and able to speak in complete sentences Auscultation: clear to auscultation bilaterally Other: PTX cath paced by ED Results Last Vital Signs Temp 36.6 C 05/01/20 19:42 Pulse 113 H 05/01/20 20:31 Resp 18 05/01/20 20:39 BP 167/91 H 05/01/20 20:31 Pulse Ox 100 05/01/20 20:39 Labs Result diagrams: 05/01/20 20:00 05/02/20 10:25 Labs: Laboratory Results - last 24 hr 05/01/20 05/01/20 05/01/20 20:00 20:00 20:00 WBC 7.82 RBC 5.27 H Hgb 14.2 Hct 45.7 MCV 86.7 MCH 26.9 L MCHC 31.1 L RDW 13.2 Plt Count 164 MPV 12.8 H Immature Gran % 0.8 Neutrophils % 56.8 Lymphocytes % 32.0 Monocytes % 9.6 Eosinophils % 0.5 Basophils % 0.3 Nucleated RBC % 0 Absolute Neutrophils 4.45 Absolute Lymphocytes 2.50 Absolute Monocytes 0.75 Absolute Eosinophils 0.04 Absolute Basophils 0.02 PT 9.9 INR 1.0 APTT 24.7 Sodium 135 L Potassium 4.8 Chloride 100 Carbon Dioxide 25.7 Anion Gap 9.3 BUN 14 Creatinine 1.19 H Estimated GFR/1.73 m2 44.46 Glucose 224 H Calcium 9.6 Magnesium 2.0 Total Bilirubin 1.0 AST 26 ALT 9 L Alkaline Phosphatase 106 Troponin I 0.11 H* Total Protein 8.3 H Albumin 3.8
[2020-05-01 23:36] LABS: Troponin I 3.03 ng/mL (<0.06)
[2020-05-02] VITALS (46 sets, daily range): BP systolic 65–125; BP diastolic 29–84; PULSE 66–105; RESP 14–21; TEMP 36.4–36.7; O2SAT 90–99
--- NOTE | 2020-05-02 | DI.RAD_ITS ---
EXAM: XR PORTABLE CHEST AP CLINICAL HISTORY: left PTX TECHNIQUE: 2D digital imaging was performed. COMPARISON: CR,XR XR PORTABLE CHEST AP POST LINE from 05/02/2020 FINDINGS: MEDIASTINUM: Normal. HEART: Normal. PULMONARY VASCULATURE: Normal. LUNGS: Clear. PLEURAL SPACE: No pleural effusion or pneumothorax. BONE:Within normal limits for the patient's age. OTHER FINDINGS:The tubing from the vacuum device has been removed. IMPRESSION: No evidence of a pneumothorax. DATA REPOSITORY: RADIATION DOSE DELIVERED:
--- NOTE | 2020-05-02 00:15 | RT.EKG_ITS ---
APPROVED REPORT Exam: Resting ECG Patient Location: I HR:89 bpm ECG Measurements Heart Rate 89 AXIS MS 146 P 73 QRSd 83 QRS 83 QT 382 T 74 QTc 465 Conclusion Sinus rhythm...normal P axis, V-rate 60- 99
[2020-05-02] MEDS: Normal Saline Flush 10 ML SYR IVP ×3 (01:28→19:58)
[2020-05-02] MEDS: Acetaminophen 325 MG TAB 650 MG PO (06:17)
--- NOTE | 2020-05-02 06:30 | RT.EKG_ITS ---
APPROVED REPORT Exam: Resting ECG Patient Location: I HR:76 bpm ECG Measurements Heart Rate 76 AXIS NM 138 P 75 QRSd 78 QRS 82 QT 417 T 73 QTc 469 Conclusion Sinus rhythm...normal P axis, V-rate 60- 99
--- NOTE | 2020-05-02 08:30 | DI.RAD_ITS ---
EXAM: XR PORTABLE CHEST AP POST LINE CLINICAL HISTORY: PTX TECHNIQUE: 2D digital imaging was performed. COMPARISON: CR,XR XR PORTABLE CHEST AP from 05/01/2020 FINDINGS: MEDIASTINUM: Normal. HEART: Normal. PULMONARY VASCULATURE: Normal. LUNGS: Clear. Hyperinflation of the lungs consistent with COPD. PLEURAL SPACE: No pleural effusion or pneumothorax. BONE:Within normal limits for the patient's age. OTHER FINDINGS:The patient has a left vacuum tube. IMPRESSION: No evidence of a left pneumothorax. DATA REPOSITORY: RADIATION DOSE DELIVERED:
[2020-05-02] MEDS: Metoprolol 50 MG TAB PO ×2 (09:09→19:58)
[2020-05-02] MEDS: Psyllium PKT 1 EACH PO (09:09)
[2020-05-02] MEDS: Aspirin E.C. 81 MG TABEC PO (09:09)
[2020-05-02] MEDS: Budesonide/Formoterol 160/4.5 6 GM 60 PUFF INH IH ×2 (09:12→19:56)
[2020-05-02 10:50] LABS: BUN 20 mg/dL (7-18); CREATININE 1.44 mg/dL (0.55-1.02); Calcium 9.7 mg/dL (8.5-10.1); Chloride 101 mmol/L (98-107); Estimated GFR 35.68 (mL/min/1.73m2); Glucose 178 mg/dL (74-106); Potassium 4.7 mmol/L (3.5-5.1); Sodium 138 mmol/L (136-145)
--- NOTE | 2020-05-02 11:00 | RT.EKG_ITS ---
APPROVED REPORT Exam: Resting ECG Patient Location: I HR:67 bpm ECG Measurements Heart Rate [address] 135 P 79 QRSd 91 QRS 85 QT 441 T 78 QTc 466 Conclusion Sinus rhythm...normal P axis, V-rate 60- 99 Low voltage, precordial leads...precordial leads <1.0mV
[2020-05-02 11:01] LABS: Troponin I 4.59 ng/mL (<0.06)
--- NOTE | 2020-05-02 11:17 | PDOC.CMIN ---
- If Service Date Differs Date of service: 05/02/20 Time of Service: 11:17 Care Management Initial Assess REASON FOR HOSPITALIZATION:: Pneumothorax, demand ischemia PAST MEDICAL HISTORY/PAST SURGICAL HISTORY:: Medical History Abnormal mammogram of left breast (Acute). Abnormal weight loss (Chronic 04/18/12). 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 Carotid artery stenosis (Chronic). right. Carpal tunnel syndrome (Chronic). right. Chronic obstructive lung disease (Chronic). COPD exacerbation (Resolved). Diverticulosis of colon without diverticulitis (Chronic). Essential hypertension (Chronic 06/24/13). Fatigue (Resolved 06/02/16). Hyperlipidemia (Chronic). Impaired fasting glucose (Chronic). Muscle spasms of neck (Resolved 01/29/18). Nasal bleeding (Resolved). Nodule of right lung (Chronic 07/11/16). 2017 - patient reports that this was biopsied at [facility] in [place], and has been followed with PET/CT and was told that it is not cancerous. 2019 - R upper lobe malignant neoplasm per [facility], completed radiation 06/2019. Following. NSTEMI (non-ST elevated myocardial infarction) (Ruled-out). Oxygen dependent (Resolved). Peripheral vascular disease (Chronic). Pneumonia (Resolved ~09/2019). Polyp of colon (Resolved). PVD (peripheral vascular disease). Smoker (Chronic). Quit approx. October 05, 2018 while in-patient. Has not smoked since. 03/20/19 - Admits to 1 cigaret 1-2 per week. 12/19/19 - smoking 3-4 /day. Tubular adenoma (Chronic 03/07/16). Colonoscopy 03/07/16 - 5 yr plan. UPJ obstruction, acquired (Chronic). Uvulitis (Acute). Surgical History . Biopsy of breast. R cyst aspiration many years ago. Cholecystectomy (~01/2009). Colonoscopy - MAC (03/07/16). Dr Parisi. excision CIS R buttock 2008. History of lung biopsy (Acute ~2015). Hysterectomy, Laproscopic (~1974). fibroid uterus ovaries remain. Open Carpal Tunnel release. left. Status post breast biopsy (Inactive). Status post carpal tunnel release (Inactive). Status post cholecystectomy (Inactive). Surgery. EXC/DEST INTVRT DISC NOS, 1992. C6-7 PREVIOUS FUNCTIONAL STATUS/SOCIAL/FAMILY SUPPORTS:: Lianna lives in [place] with her , Eloy. Their children are adults and all live in [place]. She has five grandchildren and expressed that she hopes to have great grandchildren someday. 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 She is independent at baseline. CURRENT FUNCTIONAL STATUS:: Lianna is alert and engaged she has a chest tube in place. She states that she does not have any services in place and does not feel she will need them. She is independent at home and lives with her spouse. Lianna is willing to complete her advance directives on this admission, she states her family knows that she is a DNR/DNI and understands her wishes. ADVANCE DIRECTIVES:: None on file - CM to offer forms willing to complete on this admission. Has patient been provided with info about the portal/API?: Yes Did the patient sign up for the portal?: No CODE STATUS:: DNR/DNI INSURANCE COVERAGE / FINANCIAL ISSUES:: [place] and Medicare CURRENT HOME/COMMUNITY SERVICES/EQUIPMENT:: Lianna currently does not have any equipment or services in the community. PRIMARY CARE PHYSICIAN:: Sue Rodney POTENTIAL DISCHARGE NEEDS:: Primary care follow up scheduled prior to discharge PATIENT/FAMILY EDUCATION NEEDS:: Review discharge instructions regarding activity levels and medications, discussion of self care needs and goals of care. ANTICIPATED BARRIERS TO DISCHARGE:: None identified at this time. TRANSPORTATION:: Private vehicle by her family. PLAN:: Anticipate Lianna will return home with no additional services when medically cleared. Her will drive her home when ready. She will follow up with her PCP and discharge plan of care. CM will continue to follow.
[2020-05-02] MEDS: Tiotropium Bromide-Respimat 10 PUFF INH 2 PUFF IH (11:18)
[2020-05-02 12:17] LABS: COVID-19 RT-PCR UVMMC Result Negative (Negative)
--- NOTE | 2020-05-02 12:35 | PHA.REVIEW ---
Pharmacy Admission Review - Admission Clinical Review (Last Reviewed 05/01/20 @ 22:03 by Kurt Guzman MD) Pneumothorax on left (Acute) Non-STEMI (non-ST elevated myocardial infarction) (Acute) Ruptured emphysematous bleb of lung (Acute) Smoker (Acute) Primary malignant neoplasm of cervix (Acute) Tetanus Vaccines and Toxoid Allergy (Mild, Verified 01/08/20 14:23) LOCAL SWELLING Height 5 ft 4 in Weight 60.3 kg - Renal Dosing Renal Dosing: BUN 20 mg/dL (7-18) H D 05/02/20 10:25 Creatinine 1.44 mg/dL (0.55-1.02) H 05/02/20 10:25 Medications needing adjustments: Reviewed (crcvl ~30ml/min) - Anticoagulation Anticoagulation: Hgb 14.2 g/dL (11.2-15.7) 05/01/20 20:00 Hct 45.7 % (36.0-46.0) 05/01/20 20:00 Plt Count 164 10^3/uL (130-400) 05/01/20 20:00 INR 1.0 (0.9-1.1) 05/01/20 20:00 Creatinine 1.44 mg/dL (0.55-1.02) H 05/02/20 10:25 DVT Prohphylaxis: N/A (pneumothorax) Therapeutic Anticoagulation: N/A - Opiate Usage Evaluate Pain Scale/Pains Meds: Reviewed Scheduled Bowel Reg ordered if on Opiates?: Yes - Relevant Labs Sodium 138 mmol/L (136-145) 05/02/20 10:25 Potassium 4.7 mmol/L (3.5-5.1) 05/02/20 10:25 Chloride 101 mmol/L (98-107) 05/02/20 10:25 Magnesium 2.0 mg/dL (1.8-2.4) 05/01/20 20:00 Electrolytes, C-Reactive P, ESR: Reviewed - DM Control DM Control: Glucose 178 mg/dL (74-106) H 05/02/20 10:25 Insulin Dosing: Reviewed (no meds) - Heart Failure/AZ Heart Failure/AZ: Troponin I 4.59 ng/mL (<0.06) H* 05/02/20 10:25 EF%, QUANG's, B-Blockers, Diuretics: Reviewed (demand ischemia) - BP Control BP Control: Blood Pressure 125/52 Blood Pressure 97/51 Blood Pressure 101/75 Blood Pressure 103/55 Blood Pressure 117/58 Blood Pressure 65/29 Blood Pressure 98/69 Blood Pressure 93/56 Blood Pressure 113/55 Blood Pressure 112/62 Blood Pressure 98/53 Blood Pressure 95/52 Blood Pressure 101/51 Blood Pressure 91/51 Blood Pressure 103/55 Blood Pressure 89/50 Blood Pressure 90/50 Blood Pressure 92/52 Blood Pressure 94/57 Blood Pressure 103/59 Blood Pressure 95/55 Blood Pressure 110/57 If elevated: Reviewed - Qtc Review If Elevated: Reviewed (483 meds ok) - IV to PO Switch IV Medications: Reviewed (IVF and pain meds) - Home Meds Home Med List reviewed: Reviewed (sub spiriva respimat for spiriva handihaler, other meds ordered) - Current meds Current Medication Order Review: Reviewed (repeat tropinin ordered)
[2020-05-02 13:41] LABS: NT-proBNP 12760 pg/mL (<300)
--- NOTE | 2020-05-02 14:16 | PGE_ITS ---
Date of Service Date of service: 05/02/20 Time of Service: 14:16 Assessment and Plan Assessment and plan (1) Pneumothorax on left: Status: Acute Assessment and plan: lung is up on CXR. pt has not pain placed to water seal *If pt needs to be anti-coagulated, OK from sx standpoint. Just don't bolus. tube is on seal cont pulm toilet will pull in am (2) Non-STEMI (non-ST elevated myocardial infarction): Status: Acute Exam Narrative Exam Narrative: pt resulting comfortable. No CP or SOB. no arm/jaw pain. no SOB/cough/fevers. pt has been isolating from Covid. NO s/s of covid or exposure she knows of. She has a very extensive hx of CPD and PTX. This is her third. Resp Effort & Inspection: normal respiratory effort and able to speak in complete sentences Auscultation: clear to auscultation bilaterally Cardio Rate: regular rate Rhythm: regular rhythm Other: no EKG changes on her telemetry currently GI Other: soft and non- tender Extrem General: no clubbing, cyanosis or edema and no pedal edema Objective Last Vital Signs Temp 36.6 C 05/02/20 08:33 Pulse 66 05/02/20 12:01 Resp 18 05/02/20 12:01 BP 109/60 05/02/20 12:01 Pulse Ox 93 05/02/20 12:01 Laboratory Results - last 24 hr 05/01/20 05/01/20 05/01/20 20:00 20:00 20:00 WBC 7.82 RBC 5.27 H Hgb 14.2 Hct 45.7 MCV 86.7 MCH 26.9 L MCHC 31.1 L RDW 13.2 Plt Count 164 MPV 12.8 H Immature Gran % 0.8 Neutrophils % 56.8 Lymphocytes % 32.0 Monocytes % 9.6 Eosinophils % 0.5 Basophils % 0.3 Nucleated RBC % 0 Absolute Neutrophils 4.45 Absolute Lymphocytes 2.50 Absolute Monocytes 0.75 Absolute Eosinophils 0.04 Absolute Basophils 0.02 PT 9.9 INR 1.0 APTT 24.7 Sodium 135 L Potassium 4.8 Chloride 100 Carbon Dioxide 25.7 Anion Gap 9.3 BUN 14 Creatinine 1.19 H Estimated GFR/1.73 m2 44.46 Glucose 224 H Calcium 9.6 Magnesium 2.0 Total Bilirubin 1.0 AST 26 ALT 9 L Alkaline Phosphatase 106 Troponin I 0.11 H* NT-Pro-B Natriuret Pep Total Protein 8.3 H Albumin 3.8 COVID-19 PCR Nasopharyn COVID-19 PCR Ref Test Perform Site 05/01/20 05/01/20 05/01/20 22:13 22:31 23:15 WBC RBC Hgb Hct MCV MCH MCHC RDW Plt Count MPV Immature Gran % Neutrophils % Lymphocytes % Monocytes % Eosinophils % Basophils % Nucleated RBC % Absolute Neutrophils Absolute Lymphocytes Absolute Monocytes Absolute Eosinophils Absolute Basophils PT INR APTT Sodium Potassium Chloride Carbon Dioxide Anion Gap BUN Creatinine Estimated GFR/1.73 m2 Glucose Calcium Magnesium Total Bilirubin AST ALT Alkaline Phosphatase Troponin I Cancelled 3.03 H* NT-Pro-B Natriuret Pep Total Protein Albumin COVID-19 PCR Negative Nasopharyn COVID-19 PCR Not Applicable Ref Test Perform Site [place] 05/02/20 05/02/20 05/02/20 05:50 10:25 10:25 WBC RBC Hgb Hct MCV MCH MCHC RDW Plt Count MPV Immature Gran % Neutrophils % Lymphocytes % Monocytes % Eosinophils % Basophils % Nucleated RBC % Absolute Neutrophils Absolute Lymphocytes Absolute Monocytes Absolute Eosinophils Absolute Basophils PT INR APTT Sodium 138 Potassium 4.7 Chloride 101 Carbon Dioxide 25.0 Anion Gap 12.0 H BUN 20 H D Creatinine 1.44 H Estimated GFR/1.73 m2 35.68 Glucose 178 H Calcium 9.7 Magnesium Total Bilirubin AST ALT Alkaline Phosphatase Troponin I 2.90 H* 4.59 H* NT-Pro-B Natriuret Pep Total Protein Albumin COVID-19 PCR Nasopharyn COVID-19 PCR Ref Test Perform Site 05/02/20 05/02/20 12:45 12:45 WBC RBC Hgb Hct MCV MCH MCHC RDW Plt Count MPV Immature Gran % Neutrophils % Lymphocytes % Monocytes % Eosinophils % Basophils % Nucleated RBC % Absolute Neutrophils Absolute Lymphocytes Absolute Monocytes Absolute Eosinophils Absolute Basophils PT INR APTT Sodium Potassium Chloride Carbon Dioxide Anion Gap BUN Creatinine Estimated GFR/1.73 m2 Glucose Calcium Magnesium Total Bilirubin AST ALT Alkaline Phosphatase Troponin I 5.20 H* NT-Pro-B Natriuret Pep 46051 H Total Protein Albumin COVID-19 PCR Nasopharyn COVID-19 PCR Ref Test Perform Site
--- NOTE | 2020-05-02 14:54 | DSE_ITS ---
Date of service: 05/02/20 Time of Service: 14:55 DS: Diagnosis Discharge Diagnosis (1) Pneumothorax on left: Status: Acute (2) Non-STEMI (non-ST elevated myocardial infarction): Status: Acute Discharge Plan Disposition Patient Disposition: [facility] Condition: Improving Discharge Details Reason For Visit: PNEUMOTHORAX,DEMAND ISCHEMIA Admit Date/Time: 05/01/20 22:13 Admit Provider: Kurt Guzman Attending Provider: Kurt Guzman Primary Care Provider: Sue Rodney Hospital Course Hospital Course: This is a 75 female a h/o COPD, CAD, PAD, lung cancer / s/p XRT in 2019, HLD, NSTEMI, spontaneous pneumothorax. She endorses chronic/intermittent cough. On the night of admission, after a particularly intense coughing spell she noted sudden onset let side pleuritic CP and SOB. On arrival of EMS O2 sat 70% reported. In ER an approximate 50% L sided pneumothorax was noted and chest tube placed. Initial troponin 0.11 noted. Initial EKG sinus tach with poor baseline; f/u EKG after tube WNL. Patient denied further chest pain. She was transitioned off supplemental oxygen and felt she had returned to her baseline. Her pneumothorax resolved; chest tube placed to water seal. Her troponin level continued to rise: 0.11 > 3.03 > 2.90 > 4.59 > 5.20. Dr Smith, [employer] Analyst at [facility] was contacted. It is unclear if this is silent ACS vs demand ischemia and / or stres cardiomyopathy. A heparin drip w/o a bolus was initiated. She is on an ASA 81mg daily as well as a statin. She will be transferred to [facility] for further evaluation, to include an echocardiogram that is unavailable at this time at [facility]. Home Meds and New Rx's Prescriptions: No Action (DME) Space Chamber Plus 1 EACH spacer 1 ea Miscellaneous PRN Qty: 1 RF: 0 Breo Ellipta 200-25 mcg/dose blister with device 1 inh INHALATION DAILY Qty: 60 RF: 6 albuterol sulfate [ProAir HFA] 90 mcg/actuation HFA aerosol inhaler 2 puff Inhalation Q4H PRN Qty: 2 RF: 4 aspirin 81 mg tablet,delayed release (DR/EC) 81 mg PO DAILY Qty: 30 RF: 12 atorvastatin 80 mg tablet 80 mg PO QPM Qty: 90 RF: 4 lisinopril 10 mg tablet 10 mg PO Q24H Qty: 90 RF: 3 Spiriva with HandiHaler 18 mcg capsule, w/inhalation device 18 mcg Inhalation DAILY Qty: 1 RF: 12 acetaminophen [Tylenol] 325 mg Tablet 325 mg PO DAILY RF: 0 metoprolol tartrate 50 mg Tablet 50 mg PO BID RF: 0 Discharge Instructions Activity:: Up with assist Equipment/Supplies:: No Equipment Needed Diet:: Heart Healthy DS: Summary Status at Discharge Functional status at discharge: independent ambulation Overall status at discharge: other Mental Status: mental status grossly normal Speech and Movement: speech and movement normal Mood: congruent mood Affect: normal affect Exam Const General: cooperative and no acute distress Nutritional Appearance: average body habitus Orientation: alert Neck Neck: normal visual inspection, full ROM and supple Chest Chest: other (Left chest with chest tube in place; to water seal.) Resp Effort & Inspection: normal respiratory effort Auscultation: clear to auscultation bilaterally and diminished lung sounds Cardio Jugular venous pressure: no JVD Rate: regular rate Rhythm: regular rhythm Heart Sounds: S1 normal and S2 normal GI Inspection: normal to inspection Palpation: soft Percussion: normal to percussion Auscultation: normal bowel sounds Skin General skin exam: no rashes or lesions noted Extrem General: no clubbing, cyanosis or edema and no calf tenderness Psych Mental Status: mental status grossly normal Speech and Movement: speech and movement normal Mood: congruent mood Affect: normal affect DS: Data Vitals/I&O Vitals and I&O: Vital Signs Temperature 36.6 C 05/02/20 08:33 Temperature Source Temporal Artery Scan 05/02/20 08:33 Pulse 66 05/02/20 12:01 Pulse 67 05/02/20 12:01 Respiratory Rate 18 05/02/20 12:01 Respiratory Effort Non-Labored 05/02/20 08:33 Respiratory Depth Normal 05/02/20 00:00 Respiratory Pattern Normal 05/02/20 08:33 Blood Pressure 109/60 05/02/20 12:01 Blood Pressure Mean 72 05/02/20 12:01 Pulse Oximetry 93 05/02/20 12:01 Respiratory End-tidal CO2 34 05/01/20 20:50 Oxygen Delivery Method Room Air 05/02/20 09:18 Oxygen Flow Rate 0 05/02/20 09:18 Pain Level 0 05/02/20 08:33 Intake & Output 05/01/20 05/02/20 05/02/20 23:59 11:59 23:59 Intake Total 500 / 500 Balance 500 / 500 Weight 62.142 kg 60.3 kg Intake: IV 500 / 500 Other: Comment Partial hysterectomy Data Completed and Pending Labs on day of discharge: Labs from last 24 hours 05/02/20 05/02/20 05/02/20 14:30 12:45 12:45 WBC RBC Hgb Hct MCV MCH MCHC RDW Plt Count MPV Immature Gran % Neutrophils % Lymphocytes % Monocytes % Eosinophils % Basophils % Nucleated RBC % Absolute Neutrophils Absolute Lymphocytes Absolute Monocytes Absolute Eosinophils Absolute Basophils PT INR APTT Sodium Potassium Chloride Carbon Dioxide Anion Gap BUN Creatinine Estimated GFR/1.73 m2 Glucose Calcium Magnesium Total Bilirubin AST ALT Alkaline Phosphatase Troponin I Pending 5.20 H* NT-Pro-B Natriuret Pep 62463 H Total Protein Albumin COVID-19 PCR Nasopharyn COVID-19 PCR Ref Test Perform Site 05/02/20 05/02/20 05/02/20 10:25 10:25 05:50 WBC RBC Hgb Hct MCV MCH MCHC RDW Plt Count MPV Immature Gran % Neutrophils % Lymphocytes % Monocytes % Eosinophils % Basophils % Nucleated RBC % Absolute Neutrophils Absolute Lymphocytes Absolute Monocytes Absolute Eosinophils Absolute Basophils PT INR APTT Sodium 138 Potassium 4.7 Chloride 101 Carbon Dioxide 25.0 Anion Gap 12.0 H BUN 20 H D Creatinine 1.44 H Estimated GFR/1.73 m2 35.68 Glucose 178 H Calcium 9.7 Magnesium Total Bilirubin AST ALT Alkaline Phosphatase Troponin I 4.59 H* 2.90 H* NT-Pro-B Natriuret Pep Total Protein Albumin COVID-19 PCR Nasopharyn COVID-19 PCR Ref Test Perform Site 05/01/20 05/01/20 05/01/20 23:15 22:31 22:13 WBC RBC Hgb Hct MCV MCH MCHC RDW Plt Count MPV Immature Gran % Neutrophils % Lymphocytes % Monocytes % Eosinophils % Basophils % Nucleated RBC % Absolute Neutrophils Absolute Lymphocytes Absolute Monocytes Absolute Eosinophils Absolute Basophils PT INR APTT Sodium Potassium Chloride Carbon Dioxide Anion Gap BUN Creatinine Estimated GFR/1.73 m2 Glucose Calcium Magnesium Total Bilirubin AST ALT Alkaline Phosphatase Troponin I 3.03 H* Cancelled NT-Pro-B Natriuret Pep Total Protein Albumin COVID-19 PCR Negative Nasopharyn COVID-19 PCR Not Applicable Ref Test Perform Site [facility] lab 05/01/20 05/01/20 05/01/20 20:00 20:00 20:00 WBC 7.82 RBC 5.27 H Hgb 14.2 Hct 45.7 MCV 86.7 MCH 26.9 L MCHC 31.1 L RDW 13.2 Plt Count 164 MPV 12.8 H Immature Gran % 0.8 Neutrophils % 56.8 Lymphocytes % 32.0 Monocytes % 9.6 Eosinophils % 0.5 Basophils % 0.3 Nucleated RBC % 0 Absolute Neutrophils 4.45 Absolute Lymphocytes 2.50 Absolute Monocytes 0.75 Absolute Eosinophils 0.04 Absolute Basophils 0.02 PT 9.9 INR 1.0 APTT 24.7 Sodium 135 L Potassium 4.8 Chloride 100 Carbon Dioxide 25.7 Anion Gap 9.3 BUN 14 Creatinine 1.19 H Estimated GFR/1.73 m2 44.46 Glucose 224 H Calcium 9.6 Magnesium 2.0 Total Bilirubin 1.0 AST 26 ALT 9 L Alkaline Phosphatase 106 Troponin I 0.11 H* NT-Pro-B Natriuret Pep Total Protein 8.3 H Albumin 3.8 COVID-19 PCR Nasopharyn COVID-19 PCR Ref Test Perform Site [facility] Medical History Abnormal mammogram of left breast Abnormal weight loss (04/18/12) 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 Tx'ed w/XRT only in 2019 Muscle spasms of neck (01/29/18) Nasal bleeding Nodule of right lung (07/11/16) 2017 - patient reports that this was biopsied at [facility] in [place], and has been followed with PET/CT and was told that it is not cancerous 2019 - R upper lobe malignant neoplasm per [facility], completed radiation 06/2019. Following NSTEMI (non-ST elevated myocardial infarction) Oxygen dependent Peripheral vascular disease Pneumonia (~09/2019) Polyp of colon PVD (peripheral vascular disease) Ruptured emphysematous bleb of lung Smoker Quit approx. October 05, 2018 while in-patient. Has not smoked since. 03/20/19 - Admits to 1 cigaret 1-2 per week. 12/19/19 - smoking 3-4 /day Spontaneous pneumothorax Tubular adenoma (03/07/16) Colonoscopy 03/07/16 - 5 yr plan UPJ obstruction, acquired Uvulitis Surgical History Biopsy of breast R cyst aspiration many years ago Cholecystectomy (~01/2009) Colonoscopy - MAC (03/07/16) Dr Parisi excision CIS R buttock 2009 History of lung biopsy (~2015) Hysterectomy, Laproscopic (~1974) fibroid uterus ovaries remain Open Carpal Tunnel release left Status post breast biopsy Status post carpal tunnel release Status post cholecystectomy Surgery EXC/DEST INTVRT DISC NOS, 1992 C6-7 Family History Mother , 65 Cancer Sister , 65 Breast cancer Father , 75 Heart disease Sister Cancer Sister No problems noted. Brother Bone cancer Lung cancer Daughter No problems noted. Daughter No problems noted. Son No problems noted. Brother No problems noted. Maternal Grandfather No problems noted. Paternal Grandfather No problems noted. Maternal Grandmother No problems noted. Paternal Grandmother No problems noted. Social History Smoking/Tobacco Use Status: Former Tobacco Use Quit Date: 10/05/18 Tobacco: How many years used: 55 Quit status: has quit before Counseling given: patient declined Alcohol Intake: never Drug use: Never Substance use type: does not use Details: Quit while in-patient. Has been 3 weeks. Caregiver/Support person: No Household members: spouse Housing: house Communication Needs: None Do you need help understanding health information?: Never Pets and animals: Yes Pets and animals: dog(s) Sexually active: No Do you think of yourself as: straight/heterosexual Current gender identity: female What is your relationship status?: How often do you talk on the phone with friends or family?: three or more times per week How often do you get together with friends or relatives?: once per week How often do you attend baptism or orthodox services?: decline to answer Do you belong to any clubs or organized social groups?: no Panel score (0-1 are the most socially isolated patients): 2 What type of physical activity do you participate in: walking Duration: < 15 minutes/day Frequency: daily Chloe/Orthodoxy: Anglican Special chloe needs: No Seatbelt use: always Drive intox or ride w/intox transit bus driver: No Do you feel safe at home: Yes Do you feel safe in your relationship?: Yes
[2020-05-02] MEDS: Normal Saline 1,000 ML 80 ML IV (15:32)
[2020-05-02 15:37] LABS: Troponin I 4.85 ng/mL (<0.06)
[2020-05-02] MEDS: Atorvastatin 40 MG TAB 80 MG PO (19:57)
[2020-05-02 21:50] LABS: PTT Activated 49.8 sec (21.0-31.4)
[2020-05-03] VITALS (20 sets, daily range): BP systolic 92–133; BP diastolic 51–65; PULSE 55–114; RESP 13–25; TEMP 36–36.6; O2SAT 91–97
[2020-05-03 05:55] LABS: Abs Immature Grans 0.04 10^3/uL (0.0-0.06); HCT 41.6 % (36.0-46.0); HGB 13.1 g/dL (11.2-15.7); MCHC 31.5 % (32.0-36.0); MCV 85.8 fL (80-95); MPV 13.1 fL (8.0-11.0); Nucleated RBC 0 %; Platelet Count 131 10^3/uL (130-400); RBC 4.85 10^6/uL (3.93-5.22); RDW 13.8 % (11.7-14.6); RDW-SD 42.6 fL; WBC 9.19 10^3/uL (4.4-10.8)
[2020-05-03 06:02] LABS: Anion Gap 7.5 mmol/L (3-11); BUN 21 mg/dL (7-18); CO2 27.5 mmol/L (21.0-32.0); CREATININE 1.17 mg/dL (0.55-1.02); Calcium 9.6 mg/dL (8.5-10.1); Chloride 105 mmol/L (98-107); Estimated GFR 45.34 (mL/min/1.73m2); Glucose 103 mg/dL (74-106); Potassium 4.5 mmol/L (3.5-5.1); Sodium 140 mmol/L (136-145)
[2020-05-03 06:06] LABS: PTT Activated 64.9 sec (21.0-31.4)
[2020-05-03 06:32] LABS: Absolute Eosinophil Count 0.09 10^3/uL (0.0-0.7); Absolute Lymphocyte Count 1.47 10^3/uL (1.2-3.4); Absolute Monocyte Count 1.93 10^3/uL (0.1-0.8); Atypical Lymphocytes % 1; Diff Comment Manual Differential
[2020-05-03] MEDS: Budesonide/Formoterol 160/4.5 6 GM 60 PUFF INH IH (07:47)
[2020-05-03] MEDS: Tiotropium Bromide-Respimat 10 PUFF INH 2 PUFF IH (07:47)
--- NOTE | 2020-05-03 08:00 | RT.EKG_ITS ---
APPROVED REPORT Exam: Resting ECG Patient Location: I HR:65 bpm ECG Measurements Heart Rate 65 AXIS AR 133 P 81 QRSd 78 QRS 87 QT 465 T 97 QTc 486 Conclusion Sinus rhythm...normal P axis, V-rate 60- 99 Abnrm T, consider ischemia, anterolateral lds...T <-0.20mV, I aVL V2-V6
--- NOTE | 2020-05-03 08:00 | DI.RAD_ITS ---
EXAM: XR PORTABLE CHEST AP POST LINE CLINICAL HISTORY: PTX TECHNIQUE: 2D digital imaging was performed. COMPARISON: CR,XR XR PORTABLE CHEST AP from 05/02/2020 FINDINGS: MEDIASTINUM: Normal. HEART: Normal. PULMONARY VASCULATURE: Normal. LUNGS: Clear. Hyperexpansion consistent with COPD. PLEURAL SPACE: No pleural effusion or pneumothorax. BONE:Within normal limits for the patient's age. OTHER FINDINGS:Normal. IMPRESSION: No evidence of a pneumothorax. DATA REPOSITORY: RADIATION DOSE DELIVERED:
[2020-05-03] MEDS: Psyllium PKT 1 EACH PO (08:04)
[2020-05-03] MEDS: Aspirin E.C. 81 MG TABEC PO (08:04)
[2020-05-03] MEDS: Metoprolol 50 MG TAB PO (08:05)
[2020-05-03 08:57] LABS: Troponin I 3.04 ng/mL (<0.06)
--- NOTE | 2020-05-03 11:12 | PGE_ITS ---
Date of Service Date of service: 05/03/20 Time of Service: 11:12 Assessment and Plan Assessment and plan (1) Pneumothorax on left: Status: Acute Assessment and plan: Catheter removed and occlusion dressing placed. Do not remove chest dressing until . Verbal chest x-ray at 1300 hrs. today (2) Non-STEMI (non-ST elevated myocardial infarction): Status: Acute Subjective Subjective Interval history since last seen: No cough. She has her usual state of short of breath. No productive sputum. No fevers or chills. No bleeding around the cath site. The chest x-ray as needed looked good. The catheter was removed today. Portable chest x-ray is pending at 1:00. There is no bleeding with by removal. She is on a heparin drip. Possible transfer to [facility] today for her non-STEMI Objective Last Vital Signs Temp 36.4 C L 05/03/20 08:17 Pulse 70 05/03/20 08:00 Resp 16 05/03/20 08:17 BP 102/53 L 05/03/20 08:17 Pulse Ox 91 L 05/03/20 09:12 Laboratory Results - last 24 hr 05/01/20 05/02/20 05/02/20 22:31 12:45 12:45 WBC RBC Hgb Hct MCV MCH MCHC RDW Plt Count MPV Immature Gran % Neutrophils % Lymphocytes % Atypical Lymphs % Monocytes % Eosinophils % Basophils % Nucleated RBC % Absolute Neutrophils Absolute Lymphocytes Absolute Monocytes Absolute Eosinophils Absolute Basophils APTT Sodium Potassium Chloride Carbon Dioxide Anion Gap BUN Creatinine Estimated GFR/1.73 m2 Glucose Calcium Troponin I 5.20 H* NT-Pro-B Natriuret Pep 63290 H COVID-19 PCR Negative Nasopharyn COVID-19 PCR Not Applicable Ref Test Perform Site [facility] lab 05/02/20 05/02/20 05/03/20 14:36 21:33 05:41 WBC RBC Hgb Hct MCV MCH MCHC RDW Plt Count MPV Immature Gran % Neutrophils % Lymphocytes % Atypical Lymphs % Monocytes % Eosinophils % Basophils % Nucleated RBC % Absolute Neutrophils Absolute Lymphocytes Absolute Monocytes Absolute Eosinophils Absolute Basophils APTT 49.8 H Sodium 140 Potassium 4.5 Chloride 105 Carbon Dioxide 27.5 Anion Gap 7.5 BUN 21 H Creatinine 1.17 H Estimated GFR/1.73 m2 45.34 Glucose 103 D Calcium 9.6 Troponin I 4.85 H* NT-Pro-B Natriuret Pep COVID-19 PCR Nasopharyn COVID-19 PCR Ref Test Perform Site 05/03/20 05/03/20 05/03/20 05:41 05:41 08:15 WBC 9.19 RBC 4.85 Hgb 13.1 Hct 41.6 MCV 85.8 MCH 27.0 MCHC 31.5 L RDW 13.8 Plt Count 131 MPV 13.1 H Immature Gran % 0.0 Neutrophils % 62.0 Lymphocytes % 15.0 Atypical Lymphs % 1 Monocytes % 21.0 Eosinophils % 1.0 Basophils % 0.0 Nucleated RBC % 0 Absolute Neutrophils 5.70 Absolute Lymphocytes 1.47 Absolute Monocytes 1.93 H Absolute Eosinophils 0.09 Absolute Basophils 0.00 APTT 64.9 H D Sodium Potassium Chloride Carbon Dioxide Anion Gap BUN Creatinine Estimated GFR/1.73 m2 Glucose Calcium Troponin I 3.04 H* NT-Pro-B Natriuret Pep COVID-19 PCR Nasopharyn COVID-19 PCR Ref Test Perform Site
--- NOTE | 2020-05-03 13:00 | DI.RAD_ITS ---
EXAM: XR PORTABLE CHEST AP CLINICAL HISTORY: line removed TECHNIQUE: 2D digital imaging was performed. COMPARISON: No exams were available for comparison FINDINGS: MEDIASTINUM: Normal. HEART: Normal. PULMONARY VASCULATURE: Normal. LUNGS: Clear. Hyperexpansion of the lungs consistent with underlying COPD. PLEURAL SPACE: No pleural effusion or pneumothorax. BONE:Within normal limits for the patient's age. OTHER FINDINGS:There has been interval removal of the vacuum tube from the left chest. IMPRESSION: No evidence of a pneumothorax. DATA REPOSITORY: RADIATION DOSE DELIVERED:
--- NOTE | 2020-05-07 16:03 | DI.VRAD_ITS ---
PROCEDURE INFORMATION: Exam: CT Angiography Chest With Contrast Exam date and time: 05/01/2020 7:52 PM Age: 75 years old Clinical indication: Other: SOB, pleuritic chest pain, R/O pe TECHNIQUE: Imaging protocol: Computed tomographic angiography of the chest with intravenous contrast. 3D rendering (Not supervised by radiologist): MIP and/or 3D reconstructed images were created by the technologist. Contrast material: OMNIPAQUE 350; Contrast volume: 61 ml; Contrast route: INTRAVENOUS (IV); COMPARISON: CT CHEST W 03/16/2020 2:16 PM FINDINGS: Tubes, catheters and devices: Interval placement of a left-sided pigtail catheter is seen, with reduction of the previously seen moderate-sized pneumothorax. Now, a small left-sided pneumothorax is seen, filling approximately 20% of the total volume of the left hemithorax. Pulmonary arteries: The pulmonary arteries opacify normally with contrast without evidence for a pulmonary embolism. Aorta: The thoracic aorta is normal in caliber without aneurysm or dissection. Atherosclerotic calcifications are seen throughout the aortic arch. Lungs: Mild atelectasis is seen within the left lower lobe. The left upper lobe is well aerated and re-expanded the. The pulmonary opacification dependently within the right upper lobe is similar when compared to the prior study. Stable small bilateral pulmonary nodules, unchanged. Mild bronchiectasis. Pleural space: No right-sided pleural effusion or pneumothorax. Heart: The heart is normal in size. No pericardial effusion. A small amount of pericardial fluid is seen along the superior pericardial recess. Lymph nodes: A prominent right paratracheal lymph node is again seen, unchanged. This is seen adjacent to fluid seen within the superior pericardial recess. No new or enlarging lymph nodes within the chest. Liver: The liver is slightly fatty infiltrated. Gallbladder and bile ducts: The gallbladder is surgically absent. Bones/joints: No acute fracture. Postoperative changes are seen at C6-C7, unchanged. Soft tissues: Unremarkable. IMPRESSION: 1. No evidence for a pulmonary embolism. No thoracic aortic aneurysm or dissection. 2. Interval placement of the left-sided pigtail catheter with significant reduction of the left-sided pneumothorax in re-expansion of the left upper and left lower lobes. The pneumothorax fills approximately 20% of the total volume of the left hemithorax currently. 3. Stable ill-defined pulmonary opacification within the right upper lobe, suggesting a stable right upper lobe lung carcinoma, given the patient's clinical history. Stable prominent right paratracheal lymph node. 4. Stable small pulmonary nodules. Attention on subsequent imaging is suggested. Dictated and Authenticated by: Renee Sheldon MD. Ordering:ARUN Emerson MD
--- NOTE | 2020-05-07 16:03 | DI.VRAD_ITS ---
PROCEDURE INFORMATION: Exam: XR Chest, 1 View Exam date and time: 05/03/2020 5:57 AM Age: 75 years old Clinical indication: Screening exam; Other screening; Patient HX: Ptx TECHNIQUE: Imaging protocol: XR of the chest Views: 1 view. COMPARISON: CR XR PORTABLE CHEST AP 05/02/2020 2:13 PM FINDINGS: Lungs: Chronic interstitial prominence. No consolidation. Pleural space: No pleural effusion. No pneumothorax. Heart/Mediastinum: Grossly stable Bones/joints: Grossly stable IMPRESSION: No pneumothorax observed. No acute findings Dictated and Authenticated by: Lexx Caal MD. Ordering:RENNY Whaley MD
--- NOTE | 2020-05-07 16:03 | DI.VRAD_ITS ---
PROCEDURE INFORMATION: Exam: XR Chest, 1 View Exam date and time: 05/02/2020 2:22 PM Age: 75 years old Clinical indication: Other: Left ptx TECHNIQUE: Imaging protocol: XR of the chest Views: 1 view. COMPARISON: CR XR PORTABLE CHEST AP POST LINE 05/02/2020 8:41 AM FINDINGS: Tubes, catheters and devices: Comparison is made with earlier exam from today. The tubing from the vacuum device has been removed from the right hemithorax. Lungs: The lungs are well expanded and clear. Pleural space: Unremarkable. No pleural effusion. No pneumothorax. Heart/Mediastinum: Unremarkable. No cardiomegaly. Bones/joints: Unremarkable. IMPRESSION: Lungs are mildly hyperinflated but clear. No pneumothorax is identified. Dictated and Authenticated by: Yeny Larson MD. Ordering:RENNY Whaley MD
--- NOTE | 2020-05-07 16:03 | DI.VRAD_ITS ---
PROCEDURE INFORMATION: Exam: XR Chest, 1 View Exam date and time: 05/03/2020 1:35 PM Age: 75 years old Clinical indication: Other: Line removed TECHNIQUE: Imaging protocol: XR of the chest Views: 1 view. COMPARISON: CR XR PORTABLE CHEST AP POST LINE 05/03/2020 5:48 AM FINDINGS: Tubes, catheters and devices: Interval removal of the vacuum tube from the left hemithorax. Lungs: The lungs are well expanded and clear. Pleural space: Unremarkable. No pleural effusion. No pneumothorax. Heart/Mediastinum: Unremarkable. No cardiomegaly. Bones/joints: Unremarkable. IMPRESSION: Normal chest x-ray. Dictated and Authenticated by: Yeny Larson MD. Ordering:RENNY Whaley MD
--- NOTE | 2020-05-07 16:03 | DI.VRAD_ITS ---
PROCEDURE INFORMATION: Exam: XR Chest, 1 View Exam date and time: 05/02/2020 8:51 AM Age: 75 years old Clinical indication: Other: Ptx TECHNIQUE: Imaging protocol: XR of the chest Views: 1 view. COMPARISON: XR PORTABLE CHEST AP 05/01/2020 7:51 PM FINDINGS: Tubes, catheters and devices: Patient has had a vacuum tube placed on the right. The pneumothorax has resolved.. Lungs: Lungs are hyperinflated consistent with COPD. Pleural space: See Tubes, catheters and devices finding. Heart/Mediastinum: Unremarkable. No cardiomegaly. Bones/joints: Unremarkable. IMPRESSION: Hyperinflated lungs with re-expansion of the right lung. Dictated and Authenticated by: Yeny Larson MD. Ordering:RENNY Whaley MD
--- NOTE | 2020-05-07 16:03 | DI.VRAD_ITS ---
Addendum created by Renee Sheldon MD on 05/01/2020 8:22:42 PM EDT: In addition to the above findings, a linear hyperdensity is seen within the right hemithorax along the central aspect, which may be external to the patient. THIS REPORT CONTAINS FINDINGS THAT MAY BE CRITICAL TO PATIENT CARE. The findings were verbally communicated via telephone conference with DR. VELAZQUEZ at 8:19 PM EDT on 05/01/2020. The findings were acknowledged and understood. Initial report created on 05/01/2020 8:18:26 PM EDT: PROCEDURE INFORMATION: Exam: XR Chest, 1 View Exam date and time: 05/01/2020 7:59 PM Age: 75 years old Clinical indication: Shortness of breath TECHNIQUE: Imaging protocol: XR of the chest Views: 1 view. COMPARISON: CT CHEST W 03/16/2020 2:16 PM FINDINGS: Lungs: The lungs are hyperexpanded with flattening of the hemidiaphragms consistent with COPD. Pleural space: A new moderate size left-sided pneumothorax is seen, filling approximately 50% of the left hemithorax. No pleural effusion. No right-sided pneumothorax. Heart/Mediastinum: The cardiac silhouette is normal in size. No significant mediastinal shift. Bones/joints: Unremarkable. IMPRESSION: Moderate size left sided pneumothorax, filling approximately 50% of the left hemithorax with mass effect on the adjacent left upper and left lower lobes. No mediastinal shift. Dictated and Authenticated by: Renee Sheldon MD. Ordering:ARUN Emerson MD
== END 2020-05-03 16:20 | disposition short-term general hospital (02) ==
LOC: ER 21:47 → ICU 23:36
PROVIDERS: Family Medicine; Physician Assistant; Admitting Provider General Practice; Emergency Provider Student in an Organized Health Care Education/Training Program; Visit Provider General Practice
DX: J93.11 Primary spontaneous pneumothorax (principal); I21.A1 Myocardial infarction type 2; J44.9 Chronic obstructive pulmonary disease, unspecified; R05 Cough; I24.8 Other forms of acute ischemic heart disease; C34.11 Malignant neoplasm of upper lobe, right bronchus or lung; I25.2 Old myocardial infarction; I73.9 Peripheral vascular disease, unspecified; I10 Essential (primary) hypertension; Z99.81 Dependence on supplemental oxygen; R73.01 Impaired fasting glucose; E78.2 Mixed hyperlipidemia; Z87.891 Personal history of nicotine dependence
CPT/HCPCS: 32551; 36415; 71045; 71275; 80048; 80053; 93005; 94640; 96361; 96374; 99218; 99222; 99224; 99231; 99239; 99285; U0003; 83735; 83880; 84484; 85025; 85610; 85730; 93010; 99217; 99219; G0378; J2930; J3490; J7620

== ENCOUNTER → 2020-06-01 12:31 | Outpatient (BNVA) | payer MEDICARE, SELFPAY | PROVIDERS: Visit Provider Internal Medicine Cardiovascular Disease | DX: I25.10 Atherosclerotic heart disease of native coronary artery without angina pectoris (principal); J44.9 Chronic obstructive pulmonary disease, unspecified; E78.2 Mixed hyperlipidemia; I73.9 Peripheral vascular disease, unspecified; Z87.891 Personal history of nicotine dependence; I10 Essential (primary) hypertension | CPT/HCPCS: 99203; 99214 ==

== ENCOUNTER 2020-06-15 01:46 | Outpatient (CLI) | payer MEDICARE, SELFPAY ==
--- NOTE | 2020-06-15 | DI.CT_ITS ---
EXAM: CT CHEST WO CLINICAL HISTORY: H/O PRIMARY LUNG CA,C34.11,S/P RADIATION,? STATUS OF DISEASE TECHNIQUE: Imaging Protocol: Axial computed tomography images with coronal and sagittal reformatted images were created and reviewed COMPARISON: CT CT CHEST W from 03/16/[address] CHEST W from 03/16/[address] CHEST PE CTA from 05/01/[address] CHEST PE CTA from 05/01/2020 CR,XR XR PORTABLE CHEST AP from 05/03/2020 FINDINGS: Tracheobronchial tree: Patent where visualized. Mediastinum and Iris: No dominant adenopathy or fluid collection. Pulmonary parenchyma: Underlying emphysematous changes. Stable patchy areas of increased density in the posterior right upper lobe. Stable tiny nodule in the anterior left lower lobe. Stable nodule n ear the right minor fissure. No new pulmonary nodules or acute infiltrates. Pleura: No effusion or pneumothorax. Stable posterior pleural thickening in the right upper lobe. Heart: The heart is not dilated. coronary artery calcifications are seen. Aorta: Thoracic aorta non-dilated. Moderate calcifications. Upper abdomen: Unremarkable. Lymph nodes: Stable 1.5 centimeter pretracheal lymph node. No new adenopathy. Bones: Mild degenerative disc changes. No compression fracture, lytic or blastic lesion. Soft tissues: : Status post cholecystectomy. Right renal cysts and hydronephrosis. Stable mild dila tation of the left renal pelvis. IMPRESSION: Stable densities of the right upper lobe. Stable pretracheal lymph node. RADIATION DOSE DELIVERED: 396.01mGy.cm Total DLP DATA REPOSITORY: All CT scans at this facility are submitted to the National Radiology Data Registry (NRDR) Dose Index Registry (DIR) with the [employer] (ACR). RADIATION OPTIMIZATION: All CT scans at this facility use at least one of these dose optimization te chniques: automated exposure control; mA and/or kV adjustment per patient size (includes targeted exa ms where dose is matched to clinical indication); or iterative reconstruction.
== END 2020-06-15 02:06 ==
PROVIDERS: Visit Provider Nurse Practitioner Family
DX: C34.11 Malignant neoplasm of upper lobe, right bronchus or lung (principal); R91.8 Other nonspecific abnormal finding of lung field
CPT/HCPCS: 71250

== ENCOUNTER 2020-06-26 17:19 | Outpatient (CLI) | payer MEDICARE, SELFPAY ==
--- NOTE | 2020-06-26 | DI.US_ITS ---
EXAM: US LOWER EXTREMITY VENOUS LT CLINICAL HISTORY: DVT DISTAL VEIN LT LOWER EXTREMITY I82.4Z2, LUNG CANCER C34.11, ? DVT. TECHNIQUE: Lower extremity venous ultrasound performed using grayscale, color-flow, and spectral Dop pler analysis. COMPARISON: No exams were available for comparison FINDINGS: The common femoral, femoral and popliteal veins demonstrate normal compressibility, augmentation, and color Doppler. The posterior tibial veins are patent. The saphenous vein appears free of thrombus. No Amaral's cyst or hematoma is seen. There is a normal appearing left groin lymph node. IMPRESSION: No evidence of DVT. DATA REPOSITORY:
== END 2020-06-26 17:39 ==
PROVIDERS: Visit Provider Nurse Practitioner Family
DX: C34.11 Malignant neoplasm of upper lobe, right bronchus or lung; I82.4Z2 Acute embolism and thrombosis of unspecified deep veins of left distal lower extremity
CPT/HCPCS: 93971

== ENCOUNTER 2020-06-30 00:49 | Outpatient (CLI) | payer MEDICARE, SELFPAY ==
--- NOTE | 2020-06-30 09:24 | DI.MAMMO_ITS ---
EXAM: MG MAMMO DIAGNOSTIC UNI CLINICAL HISTORY: ABNORMAL MAMMO,6 mo f/u,Z09 TECHNIQUE: Mammograms were interpreted according to the usual protocol including computer analysis w [employer] CAD system, tomosynthesis and C-view imaging. COMPARISON: FINDINGS: Left breast mammogram was obtained as a six-month follow-up to re-evaluate an area of questionable no dularity of the central portion of the left breast seen on prior mammogram December 2019. Findings are u nchanged or less prominent on the current examination. No mass or clumped microcalcification seen. IMPRESSION: No specific evidence of malignancy at this time. I would suggest that routine screening examinations resume with a bilateral mammogram in 6 months. BI-RADS Category 3 - 6 month - Probably Benign Finding: Recommend follow-up mammography in 6 months Breast Density - Category C - Heterogeneously dense
== END 2020-06-30 01:09 ==
DX: R92.8 Other abnormal and inconclusive findings on diagnostic imaging of breast (principal); R92.2 Inconclusive mammogram
CPT/HCPCS: 77061; 77065; G0279

== ENCOUNTER 2020-09-25 04:02 | Outpatient (CLI) | payer MEDICARE, SELFPAY ==
[2020-09-25 14:15] LABS: Abs Immature Grans 0.01 10^3/uL (0.0-0.06); Absolute Basophil Count 0.02 10^3/uL (0.0-0.2); Absolute Eosinophil Count 0.02 10^3/uL (0.0-0.7); Absolute Lymphocyte Count 0.94 10^3/uL (1.2-3.4); Absolute Monocyte Count 0.43 10^3/uL (0.1-0.8); Absolute Neutrophil Count 1.31 10^3/uL (1.2-6.7); Basophils % 0.7; Eosinophils % 0.7; HCT 43.4 % (36.0-46.0); HGB 13.6 g/dL (11.2-15.7); Immature Grans % 0.4; Lymphocytes % 34.4; MCH 26.3 pg (27.0-33.0); MCHC 31.3 % (32.0-36.0); MCV 83.8 fL (80-95); MPV 11.9 fL (8.0-11.0); Monocytes % 15.8; Nucleated RBC 0 %; Platelet Count 146 10^3/uL (130-400); RBC 5.18 10^6/uL (3.93-5.22); RDW 13.6 % (11.7-14.6); RDW-SD 41.4 fL; WBC 2.73 10^3/uL (4.4-10.8)
[2020-09-25 14:59] LABS: ALT 12 U/L (14-59); AST 20 U/L (15-37); Albumin 3.4 g/dL (3.4-5.0); Alkaline Phosphatase 107 U/L (46-116); Anion Gap 8.7 mmol/L (3-11); BUN 14 mg/dL (7-18); Bilirubin, Total 0.9 mg/dL (0.2-1.0); CO2 28.3 mmol/L (21.0-32.0); CREATININE 1.2 mg/dL (0.55-1.02); Calcium 9.6 mg/dL (8.5-10.1); Chloride 103 mmol/L (98-107); Estimated GFR 44.04 (mL/min/1.73m2); Glucose 97 mg/dL (74-106); Potassium 4.5 mmol/L (3.5-5.1); Sodium 140 mmol/L (136-145); Total Protein 8.2 g/dL (6.4-8.2)
--- NOTE | 2020-09-25 15:21 | DI.CT_ITS ---
EXAM: CT CHEST W CLINICAL HISTORY: RUL LUNG CA,C34.11,ASSESS TREATMENT RESPONSE TECHNIQUE: Imaging Protocol: Axial computed tomography images with coronal and sagittal reformatted images were created and reviewed CONTRAST MATERIAL: Intravenous: Omnipaque 350 Contrast volume:70 mL. COMPARISON: CT CT CHEST WO from 06/15/2020 FINDINGS: Tracheobronchial tree: Patent where visualized. Mediastinum and Iris: Stable mediastinal lymph nodes. Stable 1.5 cm pretracheal lymph node. Pulmonary parenchyma: No consolidation or dominant measurable mass. Marked centrilobular emphysema. Stable densities in the posterior aspect of the right upper lobe. New small ground-glass opacity in the right lower lobe. This may represent atelectasis or possible pneumonia. Increased size in the o pacity in the anterior aspect of the left lower lobe. This area now measures 1.8 cm by 1.5 cm. Stab le triangular nodule associated with the right major fissure. Pleura: No effusion or pneumothorax. Heart: The heart is not dilated. Aisp-ue-fhrycdpn coronary artery calcifications. No pericardial eff usion. Aorta: Thoracic aorta non-dilated. Atherosclerosis. Upper abdomen: Bilateral renal cysts. Status post cholecystectomy. Dilatation of the bile ducts wh ich may be postsurgical. Lymph nodes: Please see above. Bones: Normal. Soft tissues: Unremarkable. IMPRESSION: 1. Increased opacity in the anterior aspect of the left lower lobe. Differential considerations incl ude enlarging mass, metastasis, infectious or inflammatory process. 2. Stable mediastinal lymph nodes. 3. Pulmonary emphysema. RADIATION DOSE DELIVERED: 457.78mGy.cm Total DLP DATA REPOSITORY: All CT scans at this facility are submitted to the National Radiology Data Registry (NRDR) Dose Index Registry (DIR) with the [employer] (ACR). RADIATION OPTIMIZATION: All CT scans at this facility use at least one of these dose optimization te chniques: automated exposure control; mA and/or kV adjustment per patient size (includes targeted exa ms where dose is matched to clinical indication); or iterative reconstruction.
[2020-09-25] MEDS: Normal Saline - Diluent 50 ML VIAL IV (15:25)
[2020-09-25] MEDS: Omnipaque 350 MG/ML 50 ML BTL IJ ×2 (15:25→15:26)
== END 2020-09-25 04:22 ==
PROVIDERS: Visit Provider Nurse Practitioner Family
DX: C34.11 Malignant neoplasm of upper lobe, right bronchus or lung (principal)
CPT/HCPCS: 80053; 71260; 85025; Q9967

== ENCOUNTER 2020-12-07 02:20 | Outpatient (CLI) | payer MEDICARE, SELFPAY ==
[2020-12-07 12:47] LABS: Anion Gap 5.1 mmol/L (3-11); BUN 14 mg/dL (7-18); CO2 29.9 mmol/L (21.0-32.0); Calcium 9.3 mg/dL (8.5-10.1); Chloride 104 mmol/L (98-107); Estimated GFR 54.35 (mL/min/1.73m2); Glucose 97 mg/dL (74-106); Potassium 4.6 mmol/L (3.5-5.1); Sodium 139 mmol/L (136-145)
--- NOTE | 2020-12-07 13:15 | DI.CT_ITS ---
Exam(s) CT CHEST W EXAM: CT CHEST W CLINICAL HISTORY: RUL LUNG CA,C34.11,S/P SBRT,ASSESS TREATMENT RESPONSE. TECHNIQUE: Multi planar reconstructions were performed. CONTRAST MATERIAL: Omnipaque 350; 70 cc COMPARISON: CT CT CHEST WO from 06/15/[address] CHEST W from 09/25/2020 FINDINGS: CHEST: LUNGS: COPD emphysematous changes again noted. The previously described concerning nodular infiltrat e in the anterior basal segment of the left lower lobe is again noted, slightly decreased in size but still somewhat concerning in appearance, presently measuring 8 x 7 millimeters. Just above this leve l is an unchanged smaller subpleural nodule measuring 5 x 4 millimeters, unchanged. No new left lung findings. No left pleural effusion. In the opposite-right lung the previously described infiltrate in the posterior segment of the right upper lobe remains unchanged. Small probable pseudo nodule at the pleural reflection lower down the r ight lung is unchanged. No new additional right lung nodules evident. No pleural effusions. MEDIASTINUM: No new hilar nor mediastinal adenopathy. Slightly prominent right pretracheal lymph node is unchanged . No subcarinal adenopathy. No axillary adenopathy. No supraclavicular adenopathy. Visualized thyroid unremarkable. CARDIAC: Heart size is normal. There is no pericardial effusion.Caliber of the thoracic aorta is wit hin normal limits. Incidentally noted is independent origin of the left vertebral artery off the aort ic arch instead of arising in conventional fashion off of the left subclavian artery. VISUALIZED UPPER ABDOMEN:There are no significant adrenal masses. Gallbladder surgically absent. The re is a partially included cyst in the lateral right kidney which measures 3.8 cm diameter. Ipsilater al extrarenal pelvis or hydronephrosis is again noted. Same on the opposite side. OSSEOUS: No significant osseous lesions.. IMPRESSION: 1. Stable-slightly decreased size of the previously described nodular infiltrate in the anterior basa l segment of the left lower lobe. Other smaller subpleural nodular density left lung is unchanged. 2. Stable appearance of the infiltrate in the posterior segment of the right upper lobe. 3. No pleural effusions and no new intrathoracic adenopathy. 4. Cysts and probable hydronephrosis. Difficult to assess as kidneys are only partially included in t he field of view of this chest study. RADIATION DOSE DELIVERED: 405.94mGy.cm Total DLP DATA REPOSITORY: All CT scans at this facility are submitted to the National Radiology Data Registry (NRDR) Dose Index Registry (DIR) with the [employer] (ACR). RADIATION OPTIMIZATION: All CT scans at this facility use at least one of these dose optimization te chniques: automated exposure control; mA and/or kV adjustment per patient size (includes targeted exa ms where dose is matched to clinical indication); or iterative reconstruction.
[2020-12-07] MEDS: Normal Saline - Diluent 50 ML VIAL IV (13:20)
[2020-12-07] MEDS: Omnipaque 350 MG/ML 100 ML BTL 70 ML IJ (13:21)
== END 2020-12-07 02:40 ==
PROVIDERS: Visit Provider Nurse Practitioner
DX: C34.11 Malignant neoplasm of upper lobe, right bronchus or lung (principal); J44.9 Chronic obstructive pulmonary disease, unspecified
CPT/HCPCS: 80048; 71260; J3490

== ENCOUNTER 2021-02-17 14:06 | Inpatient (IN) | payer MEDICARE, SELFPAY ==
[2021-02-17] VITALS (40 sets, daily range): BP systolic 95–148; BP diastolic 42–119; PULSE 82–149; RESP 1–35; TEMP 36.1–37.1; O2SAT 83–100
--- NOTE | 2021-02-17 14:00 | RT.EKG_ITS ---
APPROVED REPORT Exam: Resting ECG Reason for Exam: increased shortness of breath Patient Location: E HR:126 bpm ECG Measurements Heart Rate 126 AXIS RI 123 P 82 QRSd 68 QRS 85 QT 305 T -75 QTc 442 Conclusion Sinus tachycardia...rate> 99 sinus tachycardia at 126, normal axis, no STEMI, nondiagnostic EKG
--- NOTE | 2021-02-17 14:00 | DI.RAD_ITS ---
Exam(s) XR PORTABLE CHEST AP EXAM: XR PORTABLE CHEST AP CLINICAL HISTORY: SOB. TECHNIQUE: 2D digital imaging was performed. COMPARISON: CR,XR XR PORTABLE CHEST AP from 05/03/2020 FINDINGS: Heart size is normal. The mediastinum is not widened. No right-sided findings. On the left side there is a pneumothorax from the apex down to the base, ap proximately 25 percent. No shift of midline structures. No pleural effusion. No infiltrate IMPRESSION: Left-sided pneumothorax. Approximately 25-30 percent. Report called to emergency room following completion of the study 02/17/2021 DATA REPOSITORY: RADIATION DOSE DELIVERED: All CT scans at this facility use at least one of these dose optimization techniques: automated exposure control; mA and/or kV adjustment per patient size (includes targeted e xams where dose is matched to clinical indication); or iterative reconstruction.
[2021-02-17] MEDS: Albuterol/Ipratropium 3 ML UPD VIAL UPD (14:25)
[2021-02-17 14:33] LABS: Abs Immature Grans 0.01 10^3/uL (0.0-0.06); Absolute Basophil Count 0.02 10^3/uL (0.0-0.2); Absolute Lymphocyte Count 0.91 10^3/uL (1.2-3.4); Absolute Monocyte Count 0.72 10^3/uL (0.1-0.8); Absolute Neutrophil Count 2.62 10^3/uL (1.2-6.7); Basophils % 0.5; HCT 44.1 % (36.0-46.0); HGB 13.6 g/dL (11.2-15.7); Immature Grans % 0.2; Lymphocytes % 21.3; MCH 26.2 pg (27.0-33.0); MCHC 30.8 % (32.0-36.0); MCV 84.8 fL (80-95); Monocytes % 16.8; Neutrophils % 61.2; Nucleated RBC 0 %; Platelet Count 140 10^3/uL (130-400); RDW 14.1 % (11.7-14.6); RDW-SD 43.4 fL; WBC 4.28 10^3/uL (4.4-10.8)
[2021-02-17] MEDS: Normal Saline 500 ML 1000 ML IV (14:33)
[2021-02-17] MEDS: methylPREDNISolone SUCC 125 MG VIAL IVP (14:34)
--- NOTE | 2021-02-17 14:37 | ED.GENADUL_ITS ---
Discharge Plan Disposition Patient Disposition: [facility] INPATIENT Condition: Stable Discharge Details Clinical Impression: Pneumothorax on left Admit Date/Time: 02/17/21 15:48 Admit Provider: Marianela Parisi Attending Provider: Marianela Parisi Primary Care Provider: Sue Rodney ED Provider: Lupis Sampson Discharge Data Discharge Date/Time-TO BE ENTERED AT DEPARTURE: 02/17/21 16:36 Medical Decision Making Lianna Reynolds is a 75-year-old woman with a history of bilateral pneumothoraces in the past, COPD, coronary artery disease, hypertension who prestened to the emergency department with shortness of breath. Wheeze at b/l bases, breath sounds diminished b/l. Tachycardic. Concern for COPD exacerbation, PNA, COVID, PTX, less likely PE, CHF. Doubt ACS. Exam/hx at this time not c/w acute aortic pathology. Plan for EKG, CXR, IV placement, screening labs, duoneb, telemetry. Will monitor. CXR shows left-sided PTX. Pig tail chest tube placed, see procedure note. Pt tolerated well without complication. HR decreased significantly after placement. Pt reported SOB resolved entirely after chest tube placement. Repeat chest xray shows good placement. Plan for admission to surgery. Clinical Impression: pneumothorax Disposition: [facility] inpatient Medical Records Medical records reviewed: Yes I reviewed the patient's medical records. Imaging Data Radiologic Study: Attestation: I personally reviewed and interpreted this imaging study as follows: Radiologist's impression: EXAM: XR PORTABLE CHEST AP CLINICAL HISTORY: SOB. TECHNIQUE: 2D digital imaging was performed. COMPARISON: CR,XR XR PORTABLE CHEST AP from 05/03/2020 FINDINGS: Heart size is normal. The mediastinum is not widened. No right-sided findings. On the left side there is a pneumothorax from the apex down to the base, approximately 25 percent. No shift of midline structures. No pleural effusion. No infiltrate IMPRESSION: Left-sided pneumothorax. Approximately 25-30 percent. Report called to emergency room following completion of the study 02/17/2021 EXAM: XR PORTABLE CHEST AP POST LINE CLINICAL HISTORY: post thoracostomy tube. TECHNIQUE: 2D digital imaging was performed. COMPARISON: CR XR PORTABLE CHEST AP from 02/17/2021 FINDINGS: Heart size is normal. The mediastinum is not widened. There has been interval placement of a pigtail pleural catheter on the left side. Left lung is re-expanded. Size of the pneumothorax is approximately 5 percent at the apex. No shift of midline structures. Hyperinflation again noted. Normal heart size. No infiltrates. IMPRESSION: Left lung is mostly re-expanded subsequent to placement of the pigtail pleural space catheter. Lab Data Lab results reviewed: Yes I reviewed the patient's lab results. ECG Data Attestation: I personally reviewed and interpreted this ECG (s) as follows: Interpretation: EKG shows sinus tachycardia at 126, normal axis, no STEMI, nondiagnostic EKG HPI General Mode of arrival: EMS . Date/Time Provider Initiated Documentation: 02/17/21 14:10 . Limitations to Documentation: no limitations . Information obtained by: patient, RN notes reviewed and old records reviewed . HPI Narrative: Lianna Reynolds is a 75-year-old woman with a history of bilateral pneumothoraces in the past, COPD, coronary artery disease, hypertension presenting to the emergency department with shortness of breath. Patient reports that she developed shortness of breath approximately 2 days ago, has been gradually worsening. Patient reports cough since onset of shortness of breath. She denies chest pain or any other pain, fever, vomiting, diarrhea, numbness, weakness, swelling. Patient reports that since her shortness of breath started she has felt generally unwell and has had almost nothing to eat or drink over the past 2 days due to loss of appetite. Patient reports that she is fully vaccinated against Covid. Patient reports that she has been using her COPD medications extensively at home, and reports that she used her albuterol 8 times this morning prior to arrival in the emergency department. Related Data Home Medications Medication Instructions Recorded Confirmed Space Chamber Plus #1 06/09/16 02/17/21 aspirin 81 mg tablet,delayed 81 mg PO DAILY #30 tab 11/11/19 02/17/21 release acetaminophen [Tylenol] 325 mg PO DAILY 01/02/20 02/17/21 albuterol sulfate 90 mcg/actuation 2 puff INHALATION Q4H PRN #2 11/16/20 02/17/21 aerosol inhaler inhaler tiotropium bromide 18 mcg capsule 18 mcg INHALATION DAILY #1 tab-cap 11/30/20 02/17/21 with inhalation device atorvastatin 80 mg tablet 80 mg PO QPM #90 tab 05/27/21 07/28/21 lisinopril 10 mg tablet 10 mg PO Q24H #90 tab 12/17/20 02/17/21 metoprolol tartrate 50 mg tablet 50 mg PO BID #60 tab 01/04/21 02/17/21 fluticasone furoate 200 1 inh INHALATION DAILY #60 each 02/22/21 mcg-vilanterol 25 mcg/dose inhalation powder Previous Rx's Medication Instructions Recorded aspirin 81 mg tablet,delayed 81 mg PO DAILY #30 tab 11/11/19 release albuterol sulfate 90 mcg/actuation 2 puff INHALATION Q4H PRN #2 11/16/20 aerosol inhaler inhaler tiotropium bromide 18 mcg capsule 18 mcg INHALATION DAILY #1 tab-cap 11/30/20 with inhalation device atorvastatin 80 mg tablet 80 mg PO QPM #90 tab 12/17/20 lisinopril 10 mg tablet 10 mg PO Q24H #90 tab 12/17/20 metoprolol tartrate 50 mg tablet 50 mg PO BID #60 tab 01/04/21 fluticasone furoate 200 1 inh INHALATION DAILY #60 each 02/22/21 mcg-vilanterol 25 mcg/dose inhalation powder Allergies Allergy/AdvReac Type Severity Reaction Status Date / Time Tetanus Vaccines and Toxoid Allergy Mild LOCAL Verified 02/17/21 14:45 SWELLING General Stated Complaint: SOB SHIN: 2 Review of Systems Narrative: Constitutional: denies fevers Eyes: denies eye pain ENT: denies ear pain, dental pain, sore throat Cardiovascular: denies chest pain, edema Respiratory: reports SOB, cough GI: denies abdominal pain, vomiting, diarrhea : denies flank pain MSK: denies back pain, neck pain, arthralgias, myalgias Skin: denies rash Neuro: denies headaches, numbness, weakness [facility] Medical History Abnormal mammogram of left breast Abnormal weight loss (04/18/12) 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 Tx'ed w/XRT only in 2019 Muscle spasms of neck (01/29/18) Nasal bleeding Nodule of right lung (07/11/16) 2017 - patient reports that this was biopsied at [facility] in [place], and has been followed with PET/CT and was told that it is not cancerous 2019 - R upper lobe malignant neoplasm per [facility], completed radiation 06/2019. Following NSTEMI (non-ST elevated myocardial infarction) Oxygen dependent Peripheral vascular disease Pharyngitis Pneumonia (~09/2019) Polyp of colon PVD (peripheral vascular disease) Ruptured emphysematous bleb of lung Smoker Quit approx. October 05, 2018 while in-patient. Has not smoked since. 03/20/19 - Admits to 1 cigaret 1-2 per week. 12/19/19 - smoking 3-4 /day -01/2020 - QUIT again Tubular adenoma (03/07/16) Colonoscopy 03/07/16 - 5 yr plan UPJ obstruction, acquired Uvulitis Surgical History Biopsy of breast R cyst aspiration many years ago Cholecystectomy (~01/2009) Colonoscopy - MAC (03/07/16) Dr Parisi excision CIS R buttock 2008 History of lung biopsy (~2015) Hysterectomy, Laproscopic (~1974) fibroid uterus ovaries remain Open Carpal Tunnel release left Status post breast biopsy Status post carpal tunnel release Status post cholecystectomy Surgery EXC/DEST INTVRT DISC NOS, 1991 C6-7 Family History Mother , 65 Cancer Sister , 65 Breast cancer Father , 75 Heart disease Sister Cancer Sister No problems noted. Brother Bone cancer Lung cancer Daughter No problems noted. Daughter No problems noted. Son No problems noted. Brother No problems noted. Maternal Grandfather No problems noted. Paternal Grandfather No problems noted. Maternal Grandmother No problems noted. Paternal Grandmother No problems noted. Social History Smoking/Tobacco Use Status: Former Tobacco Use Quit Date: 10/05/18 Tobacco: How many years used: 55 Quit status: has quit before Counseling given: patient declined Smoking risk assessment performed?: Yes Alcohol Intake: never Drug use: Never Substance use type: does not use Details: Quit smoking while in-patient. Caregiver/Support person: No Household members: spouse Housing: house Communication Needs: None Do you need help understanding health information?: Never Pets and animals: Yes Pets and animals: dog(s) Sexually active: No Do you think of yourself as: straight/heterosexual Current gender identity: female What is your relationship status?: How often do you talk on the phone with friends or family?: three or more times per week How often do you get together with friends or relatives?: once per week How often do you attend holiness or congregational services?: decline to answer Do you belong to any clubs or organized social groups?: no Panel score (0-1 are the most socially isolated patients): 2 What type of physical activity do you participate in: walking Duration: < 15 minutes/day Frequency: daily Chloe/Druze: Mu-Ism Special chloe needs: No Seatbelt use: always Drive intox or ride w/intox wheelchair driver: No Do you feel safe at home: Yes Do you feel safe in your relationship?: Yes Exam Narrative Exam Narrative: Constitutional: [id number], increased respiratory effort HENT: head atraumatic/normocephalic/normal inspection, mucous membranes moist Eyes: conjunctiva normal, sclera normal, pupils 3mm b/l Neck: no stridor, normal ROM, trachea midline Chest: normal inspection Resp: tachypnea, able to speak in full sentences, exp wheeze b/l bases, diminshed breath sounds b/l Cardio: tachycardic rate, normal rhythm, no murmur appreciated GI: abdomen soft, non-tender, non-distended Back: normal inspection, no rash Skin: warm, dry, normal color, no rash Neuro: alert, not altered, grossly non-focal, normal tone Ext: no edema, no posterior calf TTP Psych: normal mood, normal affect, normal behavior Course Vital Signs Vital signs: Vital Signs Temperature 36.6 C 02/17/21 14:04 Pulse 128 H 02/17/21 14:04 Respiratory Rate 25 H 02/17/21 14:04 Pulse Oximetry 91 L 02/17/21 14:04 Temperature 36.6 C 02/17/21 14:04 Temperature Source Skin 02/17/21 14:04 Pulse 122 H 02/17/21 14:26 Respiratory Rate 19 02/17/21 14:26 Respiratory Effort Incrsd Work of Breathing 02/17/21 14:17 Respiratory Pattern Bradypnea 02/17/21 14:17 Pulse Oximetry 100 02/17/21 14:26 Oxygen Delivery Method Nasal Cannula 02/17/21 14:25 Oxygen Flow Rate 2 02/17/21 14:25 Pain Level 0 02/17/21 14:04 Comment 02/17/21 14:04 Lab/Test Results Lab/Test Results: Laboratory Tests Range/Units 02/17/21 14:12 WBC (4.4-10.8) 10^3/uL 4.28 L RBC (3.93-5.22) 10^6/uL 5.20 Hgb (11.2-15.7) g/dL 13.6 Hct (36.0-46.0) % 44.1 MCV (80-95) fL 84.8 MCH (27.0-33.0) pg 26.2 L MCHC (32.0-36.0) % 30.8 L RDW (11.7-14.6) % 14.1 Plt Count (130-400) 10^3/uL 140 MPV (8.0-11.0) fL Immature Gran % 0.2 Neutrophils % 61.2 Lymphocytes % 21.3 Monocytes % 16.8 Eosinophils % 0.0 Basophils % 0.5 Nucleated RBC % % 0 Absolute Neutrophils (1.2-6.7) 10^3/uL 2.62 Absolute Lymphocytes (1.2-3.4) 10^3/uL 0.91 L Absolute Monocytes (0.1-0.8) 10^3/uL 0.72 Absolute Eosinophils (0.0-0.7) 10^3/uL 0.00 Absolute Basophils (0.0-0.2) 10^3/uL 0.02 Procedures Chest Tube Chest Tube 1: Chest Tube Location: anterior axillary line and forth interspace Chest Tube Prep: betadine prep, sterile drapes applied and sterile dressing applied Local Anesthetic: Lidocaine 1% Amount of anesthesia used (mL): 6 Incision Made With: #11 blade Post Procedure: sutured to skin and sterile dressing applied Post Procedure CXR?: Yes Patient Tolerated Procedure: Yes
[2021-02-17 14:42] LABS: Magnesium 2.2 mg/dL (1.8-2.4)
[2021-02-17 14:47] LABS: Source Nasal/Nares
[2021-02-17 14:55] LABS: ALT 7 U/L (14-59); AST 27 U/L (15-37); Albumin 3.8 g/dL (3.4-5.0); Alkaline Phosphatase 90 U/L (46-116); Anion Gap 17.7 mmol/L (3-11); BUN 28 mg/dL (7-18); Bilirubin, Total 2.3 mg/dL (0.2-1.0); CO2 20.3 mmol/L (21.0-32.0); CREATININE 1.6 mg/dL (0.55-1.02); Chloride 102 mmol/L (98-107); Glucose 83 mg/dL (74-106); NT-proBNP 1615 pg/mL (<300); Potassium 4.9 mmol/L (3.5-5.1); Sodium 140 mmol/L (136-145); Total Protein 8.1 g/dL (6.4-8.2); Troponin I < 0.05 ng/mL (<0.06)
--- NOTE | 2021-02-17 15:00 | DI.RAD_ITS ---
Exam(s) XR PORTABLE CHEST AP POST LINE EXAM: XR PORTABLE CHEST AP POST LINE CLINICAL HISTORY: post thoracostomy tube. TECHNIQUE: 2D digital imaging was performed. COMPARISON: CR XR PORTABLE CHEST AP from 02/17/2021 FINDINGS: Heart size is normal. The mediastinum is not widened. There has been interval placement of a pigtail pleural catheter on the left side. Left lung is re-ex panded. Size of the pneumothorax is approximately 5 percent at the apex. No shift of midline struct ures. Hyperinflation again noted. Normal heart size. No infiltrates. IMPRESSION: Left lung is mostly re-expanded subsequent to placement of the pigtail pleural space catheter. DATA REPOSITORY: RADIATION DOSE DELIVERED: All CT scans at this facility use at least one of these dose optimization techniques: automated exposure control; mA and/or kV adjustment per patient size (includes targeted e xams where dose is matched to clinical indication); or iterative reconstruction.
[2021-02-17 15:41] LABS: COVID-19 PCR Negative (Negative)
--- NOTE | 2021-02-17 15:53 | W.PREOPHP ---
Date of service: 02/17/21 Time of Service: 15:54 Assessment and Plan Assessment and plan (1) Atherosclerotic cardiovascular disease: Status: Acute (2) Pneumothorax on left: Status: Acute Assessment and plan: Mrs Reynolds is a 75 year old female with a history of COPD and recurrent pneumothorax secondary to known blebs who comes in to the ER complaining of SOB x 2 days which has progressively gottent worse. CXR showed a left spontaneopus pneumothorax. Chest tube was placed in the ER. Follow up CXR showed resolution. of PTX. Patient will be admitted Chest tube to wall suction Repeat CXR in am Regular diet pain meds as needed ISP Restart home medications (3) COPD with acute exacerbation: Status: Acute Assessment and plan: Will ask for Pneumonology consult for COPD Restart home medications (4) Essential hypertension: Status: Chronic Assessment and plan: restart home meds History of Present Illness History of Present Illness Chief Complaint: recurrent pneumothorax, COPD Consults Consult date: 02/17/21 Requesting physician: Lupis Sampson Narrative: Lianna Reynolds is a 75-year-old woman with a history of bilateral pneumothoraces in the past, COPD, coronary artery disease, hypertension presenting to the emergency department with shortness of breath. Patient reports that she developed shortness of breath approximately 2 days ago, has been gradually worsening. Patient reports cough since onset of shortness of breath. She denies chest pain or any other pain. Heart Rate went up into the 140's. CXR revealed left pneumothorax. Chest tube was placed by Dr. Lupis Sampson. Review of Systems Constitutional Constitutional: Denies fever(s), Denies headache(s), Denies weakness and Denies weight loss Eyes Eyes: Denies change in vision ENT Ears, Nose, Mouth, and Throat: Denies change in voice, Denies dysphagia, Denies headache(s) and Denies hoarseness Cardiovascular Cardiovascular: Denies chest pain, Denies irregular heart rhythm, Denies palpitations and Reports dyspnea Respiratory Respiratory: Reports as per HPI, Denies cough and Reports dyspnea Gastrointestinal Gastrointestinal: Reports system reviewed and no additional complaints, except as documented and Denies dysphagia Genitourinary Genitourinary: Reports system reviewed and no additional complaints, except as documented Musculoskeletal Musculoskeletal: Reports system reviewed and no additional complaints, except as documented Integumentary/Breasts Skin/Breast: Reports system reviewed and no additional complaints, except as documented Neurologic Neurologic: Reports system reviewed and no additional complaints, except as documented, Denies headache(s) and Denies weakness Psychiatric Psychiatric: Reports system reviewed and no additional complaints, except as documented Endocrine Endocrine: Reports system reviewed and no additional complaints, except as documented and Denies palpitations Hematologic/Lymphatic Hematologic/Lymphatic: Reports system reviewed and no additional complaints, except as documented [facility] Medical History Abnormal mammogram of left breast Abnormal weight loss (04/18/12) 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 Tx'ed w/XRT only in 2019 Muscle spasms of neck (01/29/18) Nasal bleeding Nodule of right lung (07/11/16) 2017 - patient reports that this was biopsied at [facility] in [place], and has been followed with PET/CT and was told that it is not cancerous 2019 - R upper lobe malignant neoplasm per [facility], completed radiation 06/2019. Following NSTEMI (non-ST elevated myocardial infarction) Oxygen dependent Peripheral vascular disease Pharyngitis Pneumonia (~09/2019) Polyp of colon PVD (peripheral vascular disease) Ruptured emphysematous bleb of lung Smoker Quit approx. October 05, 2018 while in-patient. Has not smoked since. 03/20/19 - Admits to 1 cigaret 1-2 per week. 12/19/19 - smoking 3-4 /day -01/2020 - QUIT again Tubular adenoma (03/07/16) Colonoscopy 03/07/16 - 5 yr plan UPJ obstruction, acquired Uvulitis Surgical History Biopsy of breast R cyst aspiration many years ago Cholecystectomy (~01/2009) Colonoscopy - MAC (03/07/16) Dr Parisi excision CIS R buttock 2009 History of lung biopsy (~2015) Hysterectomy, Laproscopic (~1974) fibroid uterus ovaries remain Open Carpal Tunnel release left Status post breast biopsy Status post carpal tunnel release Status post cholecystectomy Surgery EXC/DEST INTVRT DISC NOS, 1991 C6-7 Family History Mother , 65 Cancer Sister , 65 Breast cancer Father , 75 Heart disease Sister Cancer Sister No problems noted. Brother Bone cancer Lung cancer Daughter No problems noted. Daughter No problems noted. Son No problems noted. Brother No problems noted. Maternal Grandfather No problems noted. Paternal Grandfather No problems noted. Maternal Grandmother No problems noted. Paternal Grandmother No problems noted. Social History Smoking/Tobacco Use Status: Former Tobacco Use Quit Date: 10/05/18 Tobacco: How many years used: 55 Quit status: has quit before Counseling given: patient declined Smoking risk assessment performed?: Yes Alcohol Intake: never Drug use: Never Substance use type: does not use Details: Quit smoking while in-patient. Caregiver/Support person: No Household members: spouse Housing: house Communication Needs: None Do you need help understanding health information?: Never Pets and animals: Yes Pets and animals: dog(s) Sexually active: No Do you think of yourself as: straight/heterosexual Current gender identity: female What is your relationship status?: How often do you talk on the phone with friends or family?: three or more times per week How often do you get together with friends or relatives?: once per week How often do you attend synagogue or sabianist services?: decline to answer Do you belong to any clubs or organized social groups?: no Panel score (0-1 are the most socially isolated patients): 2 What type of physical activity do you participate in: walking Duration: < 15 minutes/day Frequency: daily Chloe/Pentecostalism: Oriental Orthodox Special chloe needs: No Seatbelt use: always Drive intox 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 Do you feel safe at home: Yes Do you feel safe in your relationship?: Yes Meds Allergies and Home Medications Allergies Allergy/AdvReac Type Severity Reaction Status Date / Time Tetanus Vaccines and Toxoid Allergy Mild LOCAL Verified 02/17/21 14:45 SWELLING Home Medications Medication Instructions Recorded Confirmed Type Space Chamber Plus #1 06/09/16 02/17/21 History fluticasone furoate 200 1 inh INHALATION DAILY #60 each 12/18/18 02/17/21 Rx mcg-vilanterol 25 mcg/dose inhalation powder aspirin 81 mg tablet,delayed 81 mg PO DAILY #30 tab 11/11/19 02/17/21 Rx release acetaminophen [Tylenol] 325 mg PO DAILY 01/02/20 02/17/21 History albuterol sulfate 90 mcg/actuation 2 puff INHALATION Q4H PRN #2 11/16/20 02/17/21 Rx aerosol inhaler inhaler doxycycline hyclate 100 mg tablet 100 mg PO BID #20 tab 11/20/20 02/17/21 Rx tiotropium bromide 18 mcg capsule 18 mcg INHALATION DAILY #1 tab-cap 11/30/20 02/17/21 Rx with inhalation device atorvastatin 80 mg tablet 80 mg PO QPM #90 tab 12/17/20 02/17/21 Rx lisinopril 10 mg tablet 10 mg PO Q24H #90 tab 12/17/20 02/17/21 Rx metoprolol tartrate 50 mg tablet 50 mg PO BID #60 tab 01/04/21 02/17/21 Rx Exam Const General: cooperative and acute distress mild and respiratory Orientation: alert and oriented x3 HENMT Head: normocephalic and atraumatic Resp Effort & Inspection: able to speak in complete sentences Auscultation: clear to auscultation bilaterally Cardio Rate: regular rate Rhythm: regular rhythm Results Labs Result diagrams: 02/17/21 14:12 02/17/21 14:12 Labs: Laboratory Results - last 24 hr 02/17/21 02/17/21 02/17/21 14:12 14:12 14:12 WBC 4.28 L RBC 5.20 Hgb 13.6 Hct 44.1 MCV 84.8 MCH 26.2 L MCHC 30.8 L RDW 14.1 Plt Count 140 MPV Immature Gran % 0.2 Neutrophils % 61.2 Lymphocytes % 21.3 Monocytes % 16.8 Eosinophils % 0.0 Basophils % 0.5 Nucleated RBC % 0 Absolute Neutrophils 2.62 Absolute Lymphocytes 0.91 L Absolute Monocytes 0.72 Absolute Eosinophils 0.00 Absolute Basophils 0.02 Sodium 140 Potassium 4.9 Chloride 102 Carbon Dioxide 20.3 L Anion Gap 17.7 H BUN 28 H Creatinine 1.6 H Estimated GFR/1.73 m2 31.60 Glucose 83 Calcium 10.0 Magnesium 2.2 Total Bilirubin 2.3 H AST 27 ALT 7 L Alkaline Phosphatase 90 Troponin I < 0.05 NT-Pro-B Natriuret Pep 1615 H Total Protein 8.1 Albumin 3.8 COVID-19 Source SARS-CoV-2 (PCR) 02/17/21 14:30 WBC RBC Hgb Hct MCV MCH MCHC RDW Plt Count MPV Immature Gran % Neutrophils % Lymphocytes % Monocytes % Eosinophils % Basophils % Nucleated RBC % Absolute Neutrophils Absolute Lymphocytes Absolute Monocytes Absolute Eosinophils Absolute Basophils Sodium Potassium Chloride Carbon Dioxide Anion Gap BUN Creatinine Estimated GFR/1.73 m2 Glucose Calcium Magnesium Total Bilirubin AST ALT Alkaline Phosphatase Troponin I NT-Pro-B Natriuret Pep Total Protein Albumin COVID-19 Source Nasal/Nares SARS-CoV-2 (PCR) Negative Last Vital Signs Temp 97.9 F 02/17/21 14:04 Pulse 119 H 02/17/21 15:46 Resp 21 02/17/21 15:46 BP 110/42 L 02/17/21 15:46 Pulse Ox 98 02/17/21 15:46
--- NOTE | 2021-02-17 16:06 | W.PULMCON ---
General Date Of Service Date of service: 02/17/21 Time of Service: 16:00 Requesting physician: Lupis Sampson Reason for Consult: COPD, SOB Assessment and Plan Assessment and plan (1) COPD with acute exacerbation: Status: Acute (2) Pneumothorax on left: Status: Acute Assessment and plan: This is a 75 yo female with bullous emphysema, COPD and recurrent bilateral pneumothoraces who presents with a left sided pneumothorax in the setting of bullae s/p pigtail chest tube placement by the ED, which appears to be in appropriate location. She clinically is not having a COPD exacerbation. It seems as though all of her symptoms are related to the pneumothorax. COPD - continue home Breo and Spiriva - Duonebs q4hr prn - I will set her up to see me as an outpatient Pneumothorax in the setting of bullous emphysema - chest tube placed by surgery - recommend continuous suction at -[id number] for the night - recommend repeat chest xray in the morning - if no PNX can place on water seal for 4-6 hours and repeat CXR - if no PNX can place on a clamp trial overnight with a repeat CXR Monday morning - if no PNX chest tube can be pulled - consider referral to CT surgery for VATS pleurodesis consideration given recurrent nature History of Present Illness History of Present Illness Chief Complaint: Shortness of breath Narrative: This is a 75 yo female with a medical history of lung cancer s/p RXT, COPD with bullous emphysema and recurrent bilateral pneumothoraces. She presented to the ED with shortness of breath. She reportedly started having shortness of breath a few days ago that has been progressively worsening. She has been having cough and shortness of breath. She has been using her albuterol excessively without much relief. Her prior pneumothorax on the right was iatrogenic after lung nodule biopsy. This is her third pneumothorax on the left. She does have a history of lung cancer on the left wit RXT. After chest tube placement she is feeling better. 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 Tx'ed w/XRT only in 2019 Muscle spasms of neck (01/29/18) Nasal bleeding Nodule of right lung (07/11/16) 2017 - patient reports that this was biopsied at [facility] in [place], and has been followed with PET/CT and was told that it is not cancerous 2019 - R upper lobe malignant neoplasm per [facility], completed radiation 06/2019. Following NSTEMI (non-ST elevated myocardial infarction) Oxygen dependent Peripheral vascular disease Pharyngitis Pneumonia (~09/2019) Polyp of colon PVD (peripheral vascular disease) Ruptured emphysematous bleb of lung Smoker Quit approx. October 05, 2018 while in-patient. Has not smoked since. 03/20/19 - Admits to 1 cigaret 1-2 per week. 12/19/19 - smoking 3-4 /day -01/2020 - QUIT again Tubular adenoma (03/07/16) Colonoscopy 03/07/16 - 5 yr plan UPJ obstruction, acquired Uvulitis Surgical History Biopsy of breast R cyst aspiration many years ago Cholecystectomy (~01/2009) Colonoscopy - MAC (03/07/16) Dr Parisi excision CIS R buttock 2008 History of lung biopsy (~2015) Hysterectomy, Laproscopic (~1974) fibroid uterus ovaries remain Open Carpal Tunnel release left Status post breast biopsy Status post carpal tunnel release Status post cholecystectomy Surgery EXC/DEST INTVRT DISC NOS, 1991 C6-7 Family History Mother , 65 Cancer Sister , 65 Breast cancer Father , 75 Heart disease Sister Cancer Sister No problems noted. Brother Bone cancer Lung cancer Daughter No problems noted. Daughter No problems noted. Son No problems noted. Brother No problems noted. Maternal Grandfather No problems noted. Paternal Grandfather No problems noted. Maternal Grandmother No problems noted. Paternal Grandmother No problems noted. Social History Smoking/Tobacco Use Status: Former Tobacco Use Quit Date: 10/05/18 Tobacco: How many years used: 55 Quit status: has quit before Counseling given: patient declined Smoking risk assessment performed?: Yes Alcohol Intake: never Drug use: Never Substance use type: does not use Details: Quit smoking while in-patient. Caregiver/Support person: No Household members: spouse Housing: house Communication Needs: None Do you need help understanding health information?: Never Pets and animals: Yes Pets and animals: dog(s) Sexually active: No Do you think of yourself as: straight/heterosexual Current gender identity: female What is your relationship status?: How often do you talk on the phone with friends or family?: three or more times per week How often do you get together with friends or relatives?: once per week How often do you attend mormonism or yazidi services?: decline to answer Do you belong to any clubs or organized social groups?: no Panel score (0-1 are the most socially isolated patients): 2 What type of physical activity do you participate in: walking Duration: < 15 minutes/day Frequency: daily Chloe/Restorationist: Jehovah'S Witness Special chloe needs: No Seatbelt use: always Drive intox or ride w/intox driver license 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: No Do you feel safe at home: Yes Do you feel safe in your relationship?: Yes Visit Medication and Allergies Active Medications Generic Name Dose Route Start Last Admin Trade Name Freq PRN Reason Stop Dose Admin Acetaminophen 650 mg 02/17/21 15:47 Acetaminophen 325 Mg Tab PO Q6H PRN PRN Pain Albuterol Sulfate 2.5 mg 02/17/21 15:47 Albuterol 2.5 Mg/3 Ml Inh Soln Vial UPD Q4H PRN PRN Docusate Sodium 100 mg 02/17/21 20:00 Docusate Sodium 100 Mg Cap PO TID LAWANDA Enoxaparin Sodium 40 mg 02/17/21 16:00 Enoxaparin 40 Mg/0.4 Ml Syr SC Q24H LAWANDA Sodium Chloride 500 mls @ 0 mls/hr 02/17/21 15:47 Saline 500ml Bag IV PRN PRN As Directed IV Miscellaneous Supplies 1 each 02/17/21 16:00 Iv Access IV DIRECTED LAWANDA Ibuprofen 600 mg 02/17/21 15:47 Ibuprofen 600 Mg Tab PO QID PRN PRN Lisinopril 10 mg 02/17/21 16:00 Lisinopril 10 Mg Tab PO Q24H LAWANDA Metoprolol Tartrate 50 mg 02/17/21 20:00 Metoprolol 50 Mg Tab PO BID LAWANDA Non-Formulary Medication 100 mg 02/17/21 20:00 Doxycycline Hyclate PO BID LAWANDA Non-Formulary Medication 80 mg 02/17/21 20:00 Atorvastatin PO QPM LAWANDA Non-Formulary Medication 1 inh 02/18/21 08:30 Fluticasone Furoate-Vilanterol [Breo Ellipta] IH DAILY LAWANDA Non-Formulary Medication 18 mcg 02/18/21 08:30 Tiotropium [place] IH DAILY LAWANDA Ondansetron HCl 0 mg 02/17/21 15:47 Ondansetron 4 Mg/2 Ml Vial IVP Q6H PRN PRN Sodium Chloride 0 ml 02/17/21 15:47 Normal Saline Flush 10 Ml Syr IVP PRN PRN Tramadol HCl 50 mg 02/17/21 15:47 Tramadol 50 Mg Tab PO Q6H PRN PRN Pain Allergies Tetanus Vaccines and Toxoid Allergy (Mild, Verified 02/17/21 14:45) LOCAL SWELLING Exam Narrative Exam Narrative: Chest tube exam: The accordian on the atrium was not out, indicating the chest tube was not on suction, despite being connected to the wall with wall suction on. I interrogated the chest tube and found that a Heimlich valve was used to connect two seperate pieces of tubing, and was placed backwards, therefore not allowing any air in the chest to be evacuated. I removed this valve and attached her to suction when a large amount of air was suctioned out and the accordian was inflated on the atrium. Chest tube is set to -[id number]. I also saw the chest tube connected to the atrium tubing was no reinforced with tape, so did this as well. Const General: no acute distress Nutritional Appearance: well nourished [facility] Head: normocephalic Ears: external ears normal and no periauricular adenopathy General nose exam: mucous membranes and turbinates abnormal Face and sinus: sinuses nontender Mouth: oropharynx normal and moist mucous membranes Teeth and gingiva: dentition normal Eyes General: appearance normal, both eyes and all related structures Pupils: PERRL Neck Neck: normal visual inspection and no lymphadenopathy Chest Chest: abnormal inspection of the chest (Chest tube present on left.) Resp Effort & Inspection: normal respiratory effort Auscultation: clear to auscultation bilaterally, no rales, no rhonchi and no wheezes Cardio Rate: regular rate Rhythm: regular rhythm Heart Sounds: S1 normal, S2 normal and no murmurs Pulses: radial pulses present bilaterally GI Inspection: normal to inspection Palpation: soft Skin General skin exam: no rashes or lesions noted Neuro General: patient alert, patient awake and patient oriented x3 Extrem General: no clubbing, cyanosis or edema Psych Mental Status: mental status grossly normal Affect: normal affect Attitude: cooperative Results Last Vital Signs Temp 36.6 C 02/17/21 14:04 Pulse 119 H 02/17/21 15:46 Resp 21 02/17/21 15:46 BP 110/42 L 02/17/21 15:46 Pulse Ox 98 02/17/21 15:46 Labs Result diagrams: 02/17/21 14:12 02/17/21 14:12 Labs: Laboratory Results - last 24 hr 02/17/21 02/17/21 02/17/21 14:12 14:12 14:12 WBC 4.28 L RBC 5.20 Hgb 13.6 Hct 44.1 MCV 84.8 MCH 26.2 L MCHC 30.8 L RDW 14.1 Plt Count 140 MPV Immature Gran % 0.2 Neutrophils % 61.2 Lymphocytes % 21.3 Monocytes % 16.8 Eosinophils % 0.0 Basophils % 0.5 Nucleated RBC % 0 Absolute Neutrophils 2.62 Absolute Lymphocytes 0.91 L Absolute Monocytes 0.72 Absolute Eosinophils 0.00 Absolute Basophils 0.02 Sodium 140 Potassium 4.9 Chloride 102 Carbon Dioxide 20.3 L Anion Gap 17.7 H BUN 28 H Creatinine 1.6 H Estimated GFR/1.73 m2 31.60 Glucose 83 Calcium 10.0 Magnesium 2.2 Total Bilirubin 2.3 H AST 27 ALT 7 L Alkaline Phosphatase 90 Troponin I < 0.05 NT-Pro-B Natriuret Pep 1615 H Total Protein 8.1 Albumin 3.8 COVID-19 Source SARS-CoV-2 (PCR) 02/17/21 02/17/21 14:30 15:57 WBC RBC Hgb Hct MCV MCH MCHC RDW Plt Count MPV Immature Gran % Neutrophils % Lymphocytes % Monocytes % Eosinophils % Basophils % Nucleated RBC % Absolute Neutrophils Absolute Lymphocytes Absolute Monocytes Absolute Eosinophils Absolute Basophils Sodium Potassium Chloride Carbon Dioxide Anion Gap BUN Creatinine Estimated GFR/1.73 m2 Glucose Calcium Magnesium Total Bilirubin AST ALT Alkaline Phosphatase Troponin I NT-Pro-B Natriuret Pep Total Protein Albumin COVID-19 Source Nasal/Nares Cancelled SARS-CoV-2 (PCR) Negative Cancelled
[2021-02-17] MEDS: Lisinopril 10 MG TAB PO (16:22)
--- NOTE | 2021-02-17 16:40 | NUR.NOTE ---
Nursing Note: Eloy [phone]
[2021-02-17 17:17] LABS: Troponin I < 0.05 ng/mL (<0.06)
--- NOTE | 2021-02-17 17:28 | RESPIRATORY ---
RT present for procedure. Pt had been placed on nonrebreather at 10lpm prior to RT arrival. Pt maintained 100% SpO2 throughout procedure and was placed on 5lpm nasal cannula post procedure. Pt titrated to RA with an SpO2 of 97% and RR 25.
[2021-02-17 17:37] LABS: D-Dimer 1020 ng/mlFEU (<500)
[2021-02-17] MEDS: Enoxaparin 40 MG/0.4 ML SYR SC (18:26)
[2021-02-17] MEDS: Budesonide/Formoterol 160/4.5 6 GM 60 PUFF INH IH (20:14)
[2021-02-17] MEDS: Ibuprofen 600 MG TAB PO (20:18)
[2021-02-17] MEDS: Metoprolol 50 MG TAB PO (20:19)
[2021-02-17] MEDS: Docusate Sodium 100 MG CAP PO (20:19)
[2021-02-17] MEDS: Atorvastatin 40 MG TAB 80 MG PO (20:19)
[2021-02-17] MEDS: Acetaminophen 325 MG TAB 650 MG PO (23:21)
[2021-02-18] VITALS (14 sets, daily range): BP systolic 94–111; BP diastolic 50–71; PULSE 60–78; RESP 16–20; TEMP 35.7–36.8; O2SAT 95–99
--- NOTE | 2021-02-18 | DI.RAD_ITS ---
Exam(s) XR PORTABLE CHEST AP EXAM: XR PORTABLE CHEST AP CLINICAL HISTORY: chst tube to waterseal. TECHNIQUE: 2D digital imaging was performed. COMPARISON: CR XR PORTABLE CHEST AP from 02/18/2021 FINDINGS: Heart size is normal. The mediastinum is not widened. Lungs are clear. No infiltrates nor obvious pleural effusions. On this 2nd study today there is again no evidence of recurrence of the left-sided pneumothorax. The left chest tube is unchanged in position. Hyperinflation-COPD changes again noted. IMPRESSION: No pneumothorax. No infiltrates. No pleural effusions. DATA REPOSITORY: RADIATION DOSE DELIVERED: All CT scans at this facility use at least one of these dose optimization techniques: automated exposure control; mA and/or kV adjustment per patient size (includes targeted e xams where dose is matched to clinical indication); or iterative reconstruction.
--- NOTE | 2021-02-18 | DI.RAD_ITS ---
Exam(s) XR PORTABLE CHEST AP EXAM: XR PORTABLE CHEST AP CLINICAL HISTORY: chest tube, PTX. TECHNIQUE: 2D digital imaging was performed. COMPARISON: CR XR PORTABLE CHEST AP POST LINE from 02/17/2021 FINDINGS: Heart size is normal. The mediastinum is not widened. There is been further re-expansion of the left lung. There is no pneumothorax remaining. Position o f the pleural pigtail catheter is unchanged. Hyperinflation-COPD changes again noted but there are no infiltrates nor pleural effusions. No pulmo nary edema. Heart size remains normal. IMPRESSION: Further improvement. There is no remaining pneumothorax seen. DATA REPOSITORY: RADIATION DOSE DELIVERED: All CT scans at this facility use at least one of these dose optimization techniques: automated exposure control; mA and/or kV adjustment per patient size (includes targeted e xams where dose is matched to clinical indication); or iterative reconstruction.
[2021-02-18] MEDS: Docusate Sodium 100 MG CAP PO ×3 (08:19→20:05)
[2021-02-18] MEDS: Metoprolol 50 MG TAB PO ×2 (08:19→20:05)
--- NOTE | 2021-02-18 08:26 | INITIAL_ITS ---
- If Service Date Differs Date of service: 02/18/21 Time of Service: 08:26 Care Management Initial Assess REASON FOR HOSPITALIZATION:: recurrent pneumothorax PAST MEDICAL HISTORY/PAST SURGICAL HISTORY:: Medical History . Abnormal mammogram of left breast. Abnormal weight loss (04/18/12). 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 left occipital; no residual. Atherosclerotic cardiovascular disease. Carotid artery stenosis. right. Carpal tunnel syndrome. right. COPD (chronic obstructive pulmonary disease). COPD exacerbation. Diverticulosis of colon without diverticulitis. Essential hypertension (06/24/13). Fatigue (06/02/16). Hyperlipidemia. Impaired fasting glucose. Lung cancer. b/l. Tx'ed w/XRT only in 2019. Muscle spasms of neck (01/29/18). Nasal bleeding. Nodule of right lung (07/11/16). 2017 - patient reports that this was biopsied at [facility] in [place], and has been followed with PET/CT and was told that it is not cancerous. 2019 - R upper lobe malignant neoplasm per [facility], completed radiation 06/2019. Following. NSTEMI (non-ST elevated myocardial infarction). Oxygen dependent. Peripheral vascular disease. Pharyngitis. Pneumonia (~09/2019). Polyp of colon. PVD (peripheral vascular disease). Ruptured emphysematous bleb of lung. Smoker. Quit approx. October 05, 2018 while in-patient. Has not smoked since. 03/20/19 - Admits to 1 cigaret 1-2 per week. 12/19/19 - smoking 3- 4 /day. -01/2020 - QUIT again. Tubular adenoma (03/07/16). Colonoscopy 03/07/16 - 5 yr plan. UPJ obstruction, acquired. Uvulitis. Surgical History . Biopsy of breast. R cyst aspiration many years ago. Cholecystectomy (~01/2009). Colonoscopy - MAC (03/07/16). Dr Parisi. excision CIS R buttock 2008. History of lung biopsy (~2015). Hysterectomy, Laproscopic (~1974). fibroid uterus ovaries remain. Open Carpal Tunnel release. left. Status post breast biopsy. Status post carpal tunnel release. Status post cholecystectomy. Surgery. EXC/DEST INTVRT DISC NOS, 1992. C6-7 PREVIOUS FUNCTIONAL STATUS/SOCIAL/FAMILY SUPPORTS:: Lianna lives in [place] with her , Eloy. They relocated to [place] from [place] in the , after their children were grown. Eloy has 2 children and Lianna has 3 and they are all still living in [place]. They have five grandchildren but, so far, no great grandchildren. 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 She is independent at baseline and continues to do her own cooking, cleaning and driving. CURRENT FUNCTIONAL STATUS:: Lianna was sitting up in bed when CM met with her. She was pleasant and friendly and engaged readily with CM. Lianna talked about her life in [place]., her family and some of her past work experiences. She shared that she will likely be discharged tomorrow and indicated that she is happy about that. She denied the need for any services. ADVANCE DIRECTIVES:: None on file and is not interested in completing them. Has patient been provided with info about the portal/API?: Yes Did the patient sign up for the portal?: No CODE STATUS:: Full Code INSURANCE COVERAGE / FINANCIAL ISSUES:: Medicare. [place] CURRENT HOME/COMMUNITY SERVICES/EQUIPMENT:: Lianna does not need or use any equiptment or services however she does have a cane and a walker at home which her used following surgery a while back. PRIMARY CARE PHYSICIAN:: Sue Rodney POTENTIAL DISCHARGE NEEDS:: Followup with PCP and discharge plan of care PATIENT/FAMILY EDUCATION NEEDS:: Review of discharge instructions, medications, activity, limitations, follow up plan, Ask Me Three TRANSPORTATION:: via private vehicle with family PLAN:: Lianna will be discharged home wityh nor new services. She will follow up with her community providers and plan of care and transport with her . CM will continue to support Lianna and her discharge planning needs.
[2021-02-18] MEDS: Budesonide/Formoterol 160/4.5 6 GM 60 PUFF INH IH ×2 (08:47→20:06)
[2021-02-18] MEDS: Tiotropium Bromide-Respimat 10 PUFF INH IH (08:47)
--- NOTE | 2021-02-18 12:22 | W.PM.PROGNOT ---
Date of Service Date of service: 02/18/21 Time of Service: 12:22 Assessment and Plan Assessment and plan (1) Atherosclerotic cardiovascular disease: Status: Acute (2) Pneumothorax on left: Status: Acute Assessment and plan: Feeling of SOB has improved. Chest tube to wall suction. No air leak noted this morning Regular diet pain meds as needed ISP CXR from this morning, described no remaining pneumothorax. (3) COPD with acute exacerbation: Status: Acute Assessment and plan: Will ask for Pneumonology consult for COPD Restart home medications (4) Essential hypertension: Status: Chronic Assessment and plan: restart home meds Subjective Subjective Interval history since last seen: Patient denies any SOB. She states she is feeling much better today. She reports a continued cough. Exam Const General: cooperative and comfortable Orientation: alert and oriented x3 Resp Effort & Inspection: normal respiratory effort, no audible wheezes and no cough Other: Chest tube in place. No air leak noted while conversing or coughing. Objective Last Vital Signs Temp 36.5 C 02/18/21 11:34 Pulse 60 02/18/21 11:34 Resp 16 02/18/21 11:34 BP 100/60 02/18/21 11:36 Pulse Ox 99 02/18/21 11:34 Laboratory Results - last 24 hr 02/17/21 02/17/21 02/17/21 14:12 14:12 14:12 WBC 4.28 L RBC 5.20 Hgb 13.6 Hct 44.1 MCV 84.8 MCH 26.2 L MCHC 30.8 L RDW 14.1 Plt Count 140 MPV Immature Gran % 0.2 Neutrophils % 61.2 Lymphocytes % 21.3 Monocytes % 16.8 Eosinophils % 0.0 Basophils % 0.5 Nucleated RBC % 0 Absolute Neutrophils 2.62 Absolute Lymphocytes 0.91 L Absolute Monocytes 0.72 Absolute Eosinophils 0.00 Absolute Basophils 0.02 D-Dimer Sodium 140 Potassium 4.9 Chloride 102 Carbon Dioxide 20.3 L Anion Gap 17.7 H BUN 28 H Creatinine 1.6 H Estimated GFR/1.73 m2 31.60 Glucose 83 Calcium 10.0 Magnesium 2.2 Total Bilirubin 2.3 H AST 27 ALT 7 L Alkaline Phosphatase 90 Troponin I < 0.05 NT-Pro-B Natriuret Pep 1615 H Total Protein 8.1 Albumin 3.8 COVID-19 Source SARS-CoV-2 (PCR) 02/17/21 02/17/21 02/17/21 14:30 15:57 16:55 WBC RBC Hgb Hct MCV MCH MCHC RDW Plt Count MPV Immature Gran % Neutrophils % Lymphocytes % Monocytes % Eosinophils % Basophils % Nucleated RBC % Absolute Neutrophils Absolute Lymphocytes Absolute Monocytes Absolute Eosinophils Absolute Basophils D-Dimer Sodium Potassium Chloride Carbon Dioxide Anion Gap BUN Creatinine Estimated GFR/1.73 m2 Glucose Calcium Magnesium Total Bilirubin AST ALT Alkaline Phosphatase Troponin I < 0.05 NT-Pro-B Natriuret Pep Total Protein Albumin COVID-19 Source Nasal/Nares Cancelled SARS-CoV-2 (PCR) Negative Cancelled 02/17/21 16:55 WBC RBC Hgb Hct MCV MCH MCHC RDW Plt Count MPV Immature Gran % Neutrophils % Lymphocytes % Monocytes % Eosinophils % Basophils % Nucleated RBC % Absolute Neutrophils Absolute Lymphocytes Absolute Monocytes Absolute Eosinophils Absolute Basophils D-Dimer 1020 H Sodium Potassium Chloride Carbon Dioxide Anion Gap BUN Creatinine Estimated GFR/1.73 m2 Glucose Calcium Magnesium Total Bilirubin AST ALT Alkaline Phosphatase Troponin I NT-Pro-B Natriuret Pep Total Protein Albumin COVID-19 Source SARS-CoV-2 (PCR)
[2021-02-18] MEDS: Normal Saline Flush 10 ML SYR IVP (14:21)
--- NOTE | 2021-02-18 16:13 | CHAPLAIN ---
Lianna was resting in bed when I visited. She was pleasant and easily engaged in conversation. Her has been visiting and she expected him later today. He will bring her phone. She said she's been unable to call anyone without her phone because their numbers are all on her phone.
--- NOTE | 2021-02-18 16:17 | PHA.REVIEW ---
Pharmacy Admission Review - Admission Clinical Review (Last Reviewed 02/17/21 @ 16:07 by Erum Bhandari MD) Atherosclerotic cardiovascular disease (Acute) Pneumothorax on left (Acute) COPD with acute exacerbation (Acute) Tetanus Vaccines and Toxoid Allergy (Mild, Verified 02/17/21 14:45) LOCAL SWELLING Resuscitation Status Full Code Height 5 ft 4 in Weight 59.4 kg - Renal Dosing Renal Dosing: BUN 28 mg/dL (7-18) H 02/17/21 14:12 Creatinine 1.6 mg/dL (0.55-1.02) H 02/17/21 14:12 Medications needing adjustments: Reviewed List of meds needing interventions: eCrCl 27 ml/min -- adjusted lmwh dose - Anticoagulation Anticoagulation: Hgb 13.6 g/dL (11.2-15.7) 02/17/21 14:12 Hct 44.1 % (36.0-46.0) 02/17/21 14:12 Plt Count 140 10^3/uL (130-400) 02/17/21 14:12 Creatinine 1.6 mg/dL (0.55-1.02) H 02/17/21 14:12 DVT Prophylaxis: Reviewed Medications: Enoxaparin - Opiate Usage Evaluate Pain Scale/Pains Meds: N/A - Relevant Labs Sodium 140 mmol/L (136-145) 02/17/21 14:12 Potassium 4.9 mmol/L (3.5-5.1) 02/17/21 14:12 Chloride 102 mmol/L (98-107) 02/17/21 14:12 Magnesium 2.2 mg/dL (1.8-2.4) 02/17/21 14:12 Electrolytes, C-Reactive P, ESR: Reviewed - DM Control DM Control: Glucose 83 mg/dL (74-106) 02/17/21 14:12 Insulin Dosing: N/A - Heart Failure/NJ Heart Failure/NJ: Troponin I < 0.05 ng/mL (<0.06) 02/17/21 16:55 NT-Pro-B Natriuret Pep 1615 pg/mL (<300) H 02/17/21 14:12 EF%, QUANG's, B-Blockers, Diuretics: Reviewed - BP Control BP Control: Blood Pressure 96/50 Blood Pressure 94/60 Blood Pressure 100/60 Blood Pressure 95/64 Blood Pressure 111/71 If elevated: Reviewed - Qtc Review If Elevated: Reviewed List meds needing interventions: QTc 442 on admission - IV to PO Switch IV Medications: Reviewed - Home Meds Home Med List reviewed: Reviewed Relevent Home Meds Not ordered & why?: all ordered - Current meds Current Medication Order Review: Reviewed
[2021-02-18] MEDS: Enoxaparin 30 MG/0.3 ML SYR SC (16:32)
--- NOTE | 2021-02-18 16:41 | DI.VRAD_ITS ---
PROCEDURE INFORMATION: Exam: XR Chest Exam date and time: 02/18/2021 3:02 PM Age: 75 years old Clinical indication: Device placement; Chest tube; Patient HX: Chst tube to waterseal TECHNIQUE: Imaging protocol: XR of the chest. Views: 1 view. COMPARISON: 1. CR XR PORTABLE CHEST AP 02/18/2021 8:19 AM 2. SR XR PORTABLE CHEST AP POST LINE 02/17/2021 3:43 PM 3. CR XR PORTABLE CHEST AP 02/17/2021 2:40 PM FINDINGS: Tubes, catheters and devices: There is a left-sided chest tube. This does not appear changed in position when compared to the prior study. Lungs: Unremarkable. No consolidation. Pleural spaces: There is no evidence of a pneumothorax. Heart/Mediastinum: Unremarkable. No cardiomegaly. Vasculature: There are arteriosclerotic changes of the aorta. Bones/joints: Unremarkable. IMPRESSION: No significant change when compared to the prior study. Dictated and Authenticated by: Rajinder Bone MD. Ordering:NORRIS Bear MD
[2021-02-18] MEDS: Atorvastatin 40 MG TAB 80 MG PO (20:05)
[2021-02-18] MEDS: Acetaminophen 325 MG TAB 650 MG PO (23:21)
[2021-02-19] VITALS (13 sets, daily range): BP systolic 90–129; BP diastolic 57–86; PULSE 50–108; RESP 12–20; TEMP 35.8–36.7; O2SAT 89–98
--- NOTE | 2021-02-19 07:30 | DI.RAD_ITS ---
Exam(s) XR CHEST 2V PA LATERAL EXAM: XR CHEST 2V PA LATERAL CLINICAL HISTORY: chest tube clamped. TECHNIQUE: 2D digital imaging was performed. COMPARISON: CR,XR XR PORTABLE CHEST AP from 02/18/2021 FINDINGS: Heart size is normal. The mediastinum is not widened. No infiltrates nor pleural effusions. Left chest tube again noted. Left lung remains re-expanded wi th no residual pneumothorax evident. IMPRESSION: DATA REPOSITORY: RADIATION DOSE DELIVERED:
[2021-02-19] MEDS: Budesonide/Formoterol 160/4.5 6 GM 60 PUFF INH IH ×2 (07:57→19:57)
[2021-02-19] MEDS: Tiotropium Bromide-Respimat 10 PUFF INH IH (07:57)
--- NOTE | 2021-02-19 08:36 | W.PM.PROGNOT ---
Documented by User: BALBIR Mckoy 02/19/21 08:44 Date of Service Date of service: 02/19/21 Time of Service: 08:36 Assessment and Plan Assessment and plan (1) Atherosclerotic cardiovascular disease: Status: Acute (2) Pneumothorax on left: Status: Acute Assessment and plan: Chest tube was clamped over night. Awaiting AM CXR . If the pneumothorax continues to be resolved, will pull chest tube. Regular diet pain meds as needed ISP Possible d/c home later today. (3) COPD with acute exacerbation: Status: Acute Assessment and plan: Will ask for Pneumonology consult for COPD Restart home medications (4) Essential hypertension: Status: Chronic Assessment and plan: restart home meds Subjective Subjective Interval history since last seen: Patient denies any feeling of SOB. She states she continues to cough intermittently. She is fearful of it happening again once d/c home. Exam Const General: cooperative, healthy appearing and comfortable Orientation: alert and oriented x3 Resp Effort & Inspection: normal respiratory effort, no audible wheezes and no cough Objective Last Vital Signs Temp 36.8 C 02/18/21 23:59 Pulse 50 L 02/19/21 01:17 Resp 18 02/19/21 01:50 BP 102/60 02/18/21 23:59 Pulse Ox 95 02/19/21 01:50 Documented by User: Marianela Parisi MD 02/19/21 12:16
--- NOTE | 2021-02-19 09:03 | PGE_ITS ---
General Date Of Service Date of service: 02/19/21 Time of Service: 07:30 Requesting physician: Lupis Sampson Subjective 24 Hour Events: Patient remained on a clamp trial overnight with no increase in shortness of breath, chest pain or cough. Note Note: She states she is doing well this morning although is concerned about going home today given her continuous need for oxygen despite having her lung reinflated. Exam Narrative Exam Narrative: Chest tube exam: Chest tube is in appropriate position. There is no air leak. Chest tube is currently clamped. Const General: no acute distress Nutritional Appearance: well nourished [facility] Head: normocephalic Ears: external ears normal and no periauricular adenopathy General nose exam: mucous membranes and turbinates abnormal Face and sinus: sinuses nontender Mouth: oropharynx normal and moist mucous membranes Teeth and gingiva: dentition normal Eyes General: appearance normal, both eyes and all related structures Pupils: PERRL Neck Neck: normal visual inspection and no lymphadenopathy Chest Chest: abnormal inspection of the chest (Chest tube present on left.) Resp Effort & Inspection: normal respiratory effort Auscultation: clear to auscultation bilaterally, no rales, no rhonchi and no wheezes Cardio Rate: regular rate Rhythm: regular rhythm Heart Sounds: S1 normal, S2 normal and no murmurs Pulses: radial pulses present bilaterally GI Inspection: normal to inspection Palpation: soft Skin General skin exam: no rashes or lesions noted Neuro General: patient alert, patient awake and patient oriented x3 Extrem General: no clubbing, cyanosis or edema Psych Mental Status: mental status grossly normal Affect: normal affect Attitude: cooperative Objective Last Vital Signs Temp 36.8 C 02/18/21 23:59 Pulse 50 L 02/19/21 01:17 Resp 18 02/19/21 01:50 BP 102/60 02/18/21 23:59 Pulse Ox 95 02/19/21 01:50 Results Medications Medications: Active Medications Generic Name Dose Route Start Last Admin Trade Name Freq PRN Reason Stop Dose Admin Acetaminophen 650 mg 02/17/21 15:47 02/18/21 23:21 Acetaminophen 325 Mg Tab PO 650 mg Q6H PRN PRN Administration Pain Albuterol Sulfate 2.5 mg 02/17/21 15:47 Albuterol 2.5 Mg/3 Ml Inh Soln Vial UPD Q4H PRN PRN Albuterol/Ipratropium 3 ml 02/17/21 17:39 Albuterol/Ipratropium 3 Ml Upd Vial UPD Q4H PRN PRN Atorvastatin Calcium 80 mg 02/17/21 20:00 02/18/21 20:05 Atorvastatin 40 Mg Tab PO 80 mg QPM LAWANDA Administration Budesonide/Formoterol Fumarate 0 puff 02/17/21 20:00 02/19/21 07:57 Budesonide/Formoterol 160/4.5 6 Gm 60 Puff Inh IH 2 puffs BID LAWANDA Administration Docusate Sodium 100 mg 02/17/21 20:00 02/18/21 20:05 Docusate Sodium 100 Mg Cap PO 100 mg TID LAWANDA Administration Enoxaparin Sodium 30 mg 02/18/21 16:00 02/18/21 16:32 Enoxaparin 30 Mg/0.3 Ml Syr SC 30 mg Q24H LAWANDA Administration Sodium Chloride 500 mls @ 0 mls/hr 02/17/21 15:47 Saline 500ml Bag IV PRN PRN As Directed IV Miscellaneous Supplies 1 each 02/17/21 16:00 Iv Access IV DIRECTED [facility] Ibuprofen 600 mg 02/17/21 15:47 02/17/21 20:18 Ibuprofen 600 Mg Tab PO 600 mg QID PRN PRN Administration Lisinopril 10 mg 02/17/21 16:00 02/18/21 16:18 Lisinopril 10 Mg Tab PO Not Given Q24H [facility] Metoprolol Tartrate 50 mg 02/17/21 20:00 02/18/21 20:05 Metoprolol 50 Mg Tab PO 50 mg BID LAWANDA Administration Ondansetron HCl 0 mg 02/17/21 15:47 Ondansetron 4 Mg/2 Ml Vial IVP Q6H PRN PRN Sodium Chloride 0 ml 02/17/21 15:47 02/18/21 14:21 Normal Saline Flush 10 Ml Syr IVP 10 ml PRN PRN Administration Tiotropium [place] 0 puff 02/18/21 08:30 02/19/21 07:57 Tiotropium [place]-Respimat 10 Puff Inh IH 1 puff DAILY LWAANDA Administration Allergies Tetanus Vaccines and Toxoid Allergy (Mild, Verified 02/17/21 14:45) LOCAL SWELLING Labs Result Diagrams: 02/17/21 14:12 02/17/21 14:12 Labs: Laboratory Tests Range/Units 02/17/21 02/17/21 02/17/21 14:12 14:12 14:12 WBC (4.4-10.8) 10^3/uL 4.28 L RBC (3.93-5.22) 10^6/uL 5.20 Hgb (11.2-15.7) g/dL 13.6 Hct (36.0-46.0) % 44.1 MCV (80-95) fL 84.8 MCH (27.0-33.0) pg 26.2 L MCHC (32.0-36.0) % 30.8 L RDW (11.7-14.6) % 14.1 Plt Count (130-400) 10^3/uL 140 MPV (8.0-11.0) fL Immature Gran % 0.2 Neutrophils % 61.2 Lymphocytes % 21.3 Monocytes % 16.8 Eosinophils % 0.0 Basophils % 0.5 Nucleated RBC % % 0 Absolute Neutrophils (1.2-6.7) 10^3/uL 2.62 Absolute Lymphocytes (1.2-3.4) 10^3/uL 0.91 L Absolute Monocytes (0.1-0.8) 10^3/uL 0.72 Absolute Eosinophils (0.0-0.7) 10^3/uL 0.00 Absolute Basophils (0.0-0.2) 10^3/uL 0.02 D-Dimer (<500) ng/mlFEU Sodium (136-145) mmol/L 140 Potassium (3.5-5.1) mmol/L 4.9 Chloride (98-107) mmol/L 102 Carbon Dioxide (21.0-32.0) mmol/L 20.3 L Anion Gap (3-11) mmol/L 17.7 H BUN (7-18) mg/dL 28 H Creatinine (0.55-1.02) mg/dL 1.6 H Estimated GFR/1.73 m2 (mL/min/1.73m2) 31.60 Glucose (74-106) mg/dL 83 Calcium (8.5-10.1) mg/dL 10.0 Magnesium (1.8-2.4) mg/dL 2.2 Total Bilirubin (0.2-1.0) mg/dL 2.3 H AST (15-37) U/L 27 ALT (14-59) U/L 7 L Alkaline Phosphatase (46-116) U/L 90 Troponin I (<0.06) ng/mL < 0.05 NT-Pro-B Natriuret Pep (<300) pg/mL 1615 H Total Protein (6.4-8.2) g/dL 8.1 Albumin (3.4-5.0) g/dL 3.8 COVID-19 Source SARS-CoV-2 (PCR) (Negative) Range/Units 02/17/21 02/17/21 02/17/21 14:30 15:57 16:55 WBC (4.4-10.8) 10^3/uL RBC (3.93-5.22) 10^6/uL Hgb (11.2-15.7) g/dL Hct (36.0-46.0) % MCV (80-95) fL MCH (27.0-33.0) pg MCHC (32.0-36.0) % RDW (11.7-14.6) % Plt Count (130-400) 10^3/uL MPV (8.0-11.0) fL Immature Gran % Neutrophils % Lymphocytes % Monocytes % Eosinophils % Basophils % Nucleated RBC % % Absolute Neutrophils (1.2-6.7) 10^3/uL Absolute Lymphocytes (1.2-3.4) 10^3/uL Absolute Monocytes (0.1-0.8) 10^3/uL Absolute Eosinophils (0.0-0.7) 10^3/uL Absolute Basophils (0.0-0.2) 10^3/uL D-Dimer (<500) ng/mlFEU Sodium (136-145) mmol/L Potassium (3.5-5.1) mmol/L Chloride (98-107) mmol/L Carbon Dioxide (21.0-32.0) mmol/L Anion Gap (3-11) mmol/L BUN (7-18) mg/dL Creatinine (0.55-1.02) mg/dL Estimated GFR/1.73 m2 (mL/min/1.73m2) Glucose (74-106) mg/dL Calcium (8.5-10.1) mg/dL Magnesium (1.8-2.4) mg/dL Total Bilirubin (0.2-1.0) mg/dL AST (15-37) U/L ALT (14-59) U/L Alkaline Phosphatase (46-116) U/L Troponin I (<0.06) ng/mL < 0.05 NT-Pro-B Natriuret Pep (<300) pg/mL Total Protein (6.4-8.2) g/dL Albumin (3.4-5.0) g/dL COVID-19 Source Nasal/Nares Cancelled SARS-CoV-2 (PCR) (Negative) Negative Cancelled Range/Units 02/17/21 16:55 WBC (4.4-10.8) 10^3/uL RBC (3.93-5.22) 10^6/uL Hgb (11.2-15.7) g/dL Hct (36.0-46.0) % MCV (80-95) fL MCH (27.0-33.0) pg MCHC (32.0-36.0) % RDW (11.7-14.6) % Plt Count (130-400) 10^3/uL MPV (8.0-11.0) fL Immature Gran % Neutrophils % Lymphocytes % Monocytes % Eosinophils % Basophils % Nucleated RBC % % Absolute Neutrophils (1.2-6.7) 10^3/uL Absolute Lymphocytes (1.2-3.4) 10^3/uL Absolute Monocytes (0.1-0.8) 10^3/uL Absolute Eosinophils (0.0-0.7) 10^3/uL Absolute Basophils (0.0-0.2) 10^3/uL D-Dimer (<500) ng/mlFEU 1020 H Sodium (136-145) mmol/L Potassium (3.5-5.1) mmol/L Chloride (98-107) mmol/L Carbon Dioxide (21.0-32.0) mmol/L Anion Gap (3-11) mmol/L BUN (7-18) mg/dL Creatinine (0.55-1.02) mg/dL Estimated GFR/1.73 m2 (mL/min/1.73m2) Glucose (74-106) mg/dL Calcium (8.5-10.1) mg/dL Magnesium (1.8-2.4) mg/dL Total Bilirubin (0.2-1.0) mg/dL AST (15-37) U/L ALT (14-59) U/L Alkaline Phosphatase (46-116) U/L Troponin I (<0.06) ng/mL NT-Pro-B Natriuret Pep (<300) pg/mL Total Protein (6.4-8.2) g/dL Albumin (3.4-5.0) g/dL COVID-19 Source SARS-CoV-2 (PCR) (Negative) Assessment and Plan Assessment and plan (1) COPD with acute exacerbation: Status: Acute (2) Pneumothorax on left: Status: Acute Assessment and plan: This is a 75 yo female with bullous emphysema, COPD and recurrent bilateral pneumothoraces who presents with a left sided pneumothorax in the setting of bullae s/p pigtail chest tube placement by the ED. She clinically is not having a COPD exacerbation. It seems as though all of her symptoms are related to the pneumothorax. She has been on a clamp trial overnight and her CXR from this morning shows no pneumothorax recurrance. It would be appropriate for her to hav e the chest tube pulled today. Given her continued O2 requirements, she may need to be discharged with supplemental O2. COPD - continue home Breo and Spiriva - Duonebs q4hr prn - recommend discharge with a nebulizer and Duonebs q4hr as needed - recommend ambulatory pulse ox and discharge with oxygen - I will set her up to see me as an outpatient Pneumothorax in the setting of bullous emphysema - recommend chest tube removal - recommend continuous suction at -[id number] for the night - referral to CT surgery for VATS pleurodesis consideration given recurrent nature
[2021-02-19] MEDS: Normal Saline Flush 10 ML SYR IVP (09:07)
[2021-02-19] MEDS: Docusate Sodium 100 MG CAP PO ×3 (09:07→19:57)
[2021-02-19] MEDS: Acetaminophen 325 MG TAB 650 MG PO (10:00)
--- NOTE | 2021-02-19 10:25 | PDOC.CMPRO ---
- If Service Date Differs Date of service: 02/19/21 Time of Service: 10:26 Care Management Progress Note S/O: A: Lianna is a 75 year old woman admitted on 02/17/21 with recurrent pneumothorax and COPD P: Lianna will be discharged home with no new services. She will follow up with her community providers and plan of care and transport with her . CM will continue to support Lianna and her discharge planning needs.
[2021-02-19] MEDS: Normal Saline 500 ML IV (12:43)
--- NOTE | 2021-02-19 14:05 | PDOC.CMDIS ---
- If Service Date Differs Date of service: 02/19/21 Time of Service: 14:05 LACE Index Scoring Tool - Questions: Length of Stay (in days): 2 Acuity (Admit via E.D.?): Yes Comorbidities: Previous M.I., Cerebrovascular Disease, Chronic Pulmonary Disease, Any Tumor E.D. Visits: 2 - Answers: Total Score: 12 Risk of Readmission: High Risk Care Management Discharge Reason for Hospitalization: recurrent pneumothorax Discharge Plan: Lianna will be discharged home with no new services. She will follow up with her community providers and plan of care and transport with family. Patient/Family Education Needs: Review of discharge instructions, medications, activity, limitations, follow up plan, Ask Me Three
[2021-02-19] MEDS: Enoxaparin 30 MG/0.3 ML SYR SC (15:37)
--- NOTE | 2021-02-19 16:00 | DI.RAD_ITS ---
Exam(s) XR CHEST 2V PA LATERAL EXAM: XR CHEST 2V PA LATERAL CLINICAL HISTORY: chest tube removed TECHNIQUE: COMPARISON: CR XR CHEST 2V PA LATERAL from 02/19/2021 FINDINGS: Upright PA and lateral views were obtained. Previously described left thoracotomy tube has been wayne rozina. No evidence of recurrent pneumothorax. Lungs are grossly clear. No new pleural effusion ident ified. Cardiac size within normal limits. IMPRESSION: Negative chest radiograph post removal of left thoracotomy tube. RADIATION DOSE DELIVERED: Total DLP
[2021-02-19] MEDS: Metoprolol 50 MG TAB PO (19:55)
[2021-02-19] MEDS: Atorvastatin 40 MG TAB 80 MG PO (19:55)
[2021-02-20] VITALS (7 sets, daily range): BP systolic 98–128; BP diastolic 61; PULSE 67–120; RESP 16–26; TEMP 35.7–36.5; O2SAT 87–96
[2021-02-20] MEDS: Ondansetron 4 MG/2 ML VIAL IVP (00:46)
[2021-02-20] MEDS: Normal Saline Flush 10 ML SYR IVP (00:47)
[2021-02-20] MEDS: Tiotropium Bromide-Respimat 10 PUFF INH IH (08:18)
[2021-02-20] MEDS: Budesonide/Formoterol 160/4.5 6 GM 60 PUFF INH IH (08:18)
--- NOTE | 2021-02-20 12:09 | PDOC.DSDIS_ITS ---
Discharge Plan Disposition Patient Disposition: HOME Condition: Stable Discharge Details Reason For Visit: Recurrent Pneumothorax, COPD Admit Date/Time: 02/17/21 15:48 Admit Provider: Marianela Parisi Attending Provider: Marianela Parisi Primary Care Provider: Sue Rodney Hospital Course Hospital Course: a [id number] asymmetries well female who is return onto. Conservative she was admitted #[id number] discharge and will begin/on current she has had minimal from left emphysematous lungs. She tree understanding here. Of smoking (she has had too much lung cancer and surgery was treated with 3-month was treated. Radiation She Is in No Pain upon October 2019. Present she is 08/21/2016 in chamber check. Redness of breath on the pigtail for cardiac catheter.. Her bowel PTX with gastric. And her lung is removed. Remains as she breath shortness of which returned curtailed her allergies she is on daily activities and she is limiting the, short he, short of breath. Pain. Walk while peeing with a respiratory plan is in the hilar her primary wear a hat swear. 8% but somewhat her heart rate appointment 40. Wound #20 removed. Do not think the chest dressing for 70 hours. 10 you to do in the past. And to return any the ER if pain or shortness of your chest. This of breath she had doctor's appointment but his cough and I intend. And he to call she will need it without make appointment she enough to do Monday on Monday or to therapy to get contact with: None. Patient under structure of her inch and a discharge in good condition This document was aggravated with debated Norman and make errors Home Meds and New Rx's Prescriptions: No Action (DME) Space Chamber Plus 1 EACH spacer 1 ea Miscellaneous PRN Qty: 1 RF: 0 Breo Ellipta 200-25 mcg/dose blister with device 1 inh INHALATION DAILY Qty: 60 RF: 6 aspirin 81 mg tablet,delayed release (DR/EC) 81 mg PO DAILY Qty: 30 RF: 12 albuterol sulfate [ProAir HFA] 90 mcg/actuation HFA aerosol inhaler 2 puff Inhalation Q4H PRN Qty: 2 RF: 4 Spiriva with HandiHaler 18 mcg capsule, w/inhalation device 18 mcg Inhalation DAILY Qty: 1 RF: 12 atorvastatin 80 mg tablet 80 mg PO QPM Qty: 90 RF: 4 lisinopril 10 mg tablet 10 mg PO Q24H Qty: 90 RF: 3 metoprolol tartrate 50 mg tablet 50 mg PO BID Qty: 60 RF: 3 acetaminophen [Tylenol] 325 mg Tablet 325 mg PO DAILY RF: 0 Discharge Instructions Additional Instructions: -no lifting over 10#'s -continue IS 10x/hour while awake -regular diet -no straining to move your bowels. Take Miralax if you are constipated. -do not remove chest dressing until Monday -F/u w/ Dr. Parisi as previously scheduled. Call Dr. Manuel's office on Monday to schedule f/u appt. [phone]. She will arrange for oxygen adn neubulizers -return to ED if increasing SOB or chest pain -walk to tolerance Stand Alone Forms: Nursing Discharge Form Referrals: Erum Bhandari MD [ [facility] STAFF PHYSICIAN] - 03/12/21 10:00 am Marianela Parisi MD [ [facility] STAFF PHYSICIAN] - 03/02/21 1:00 pm Activity:: see above Equipment/Supplies:: see above Diet:: Low Sodium Discharge Orders Discharge Orders: Discharge Order (Routine); Ordered 02/20/21 Ordered By: Jovana Rueda DS: Diagnosis Discharge Diagnosis (1) COPD with acute exacerbation: Status: Acute (2) Pneumothorax on left: Status: Acute (3) Lung blebs: Status: Acute (4) COPD exacerbation: Status: Acute (5) Non-STEMI (non-ST elevated myocardial infarction): Status: Acute (6) COPD (chronic obstructive pulmonary disease): Status: Chronic (7) Smoker: Status: Chronic (8) Nodule of right lung: Status: Chronic (9) Peripheral vascular disease: Status: Chronic (10) NSTEMI (non-ST elevated myocardial infarction): Status: Ruled-out (11) Carotid artery stenosis: Status: Chronic
--- NOTE | 2021-02-20 12:16 | PGE_ITS ---
Date of Service Date of service: 02/20/21 Time of Service: 12:16 Assessment and Plan Assessment and plan (1) Lung blebs: Status: Acute (2) COPD exacerbation: Status: Acute (3) Non-STEMI (non-ST elevated myocardial infarction): Status: Acute (4) Pneumothorax on left: Status: Acute (5) COPD (chronic obstructive pulmonary disease): Status: Chronic (6) COPD with acute exacerbation: Status: Acute (7) Smoker: Status: Chronic (8) Nodule of right lung: Status: Chronic (9) Lung cancer: Status: Chronic (10) Peripheral vascular disease: Status: Chronic (11) Ruptured emphysematous bleb of lung: Status: Acute Assessment and plan: -d/c home -cont pulm toilet/IS -see d/c order -F/u Dr. Bhandari on Monday for arrangement for neubs and home O2 -referral sent to [facility] for thorax consult. -return to ED if severe chest pain or SOB (12) Impaired fasting glucose: Status: Chronic (13) Hyperlipidemia: Status: Chronic Qualifiers: Hyperlipidemia type: mixed hyperlipidemia Qualified Code(s): E78.2 - Mixed hyperlipidemia Subjective Subjective Interval history since last seen: Pt is doing well. no headaches. No CP or SOB. no productive cough. no dysuria. no leg pain or swelling. Pt is up walking around w/ out assistance . No pain in chest. lung is up on XR. She does desat down to 88% while walking w/ out O2. HR also jumbs 40points. Exam Resp Effort & Inspection: normal respiratory effort and able to speak in complete sentences Auscultation: clear to auscultation bilaterally Other: catheter site is dressed. Cardio Rate: regular rate Rhythm: regular rhythm GI Palpation: soft, nontender and No ascites Objective Last Vital Signs Temp 36.5 C 02/20/21 08:11 Pulse 70 02/20/21 08:11 Resp 18 02/20/21 08:11 BP 98/61 L 02/20/21 08:11 Pulse Ox 92 02/20/21 08:27
== END 2021-02-20 14:04 | disposition home or self-care (01) | DRG 201 ==
LOC: ER 16:08 → MS 19:03
PROVIDERS: Admitting Provider Surgery; Emergency Provider Student in an Organized Health Care Education/Training Program; Visit Provider Surgery
DX: J93.83 Other pneumothorax (principal); I25.10 Atherosclerotic heart disease of native coronary artery without angina pectoris; I65.21 Occlusion and stenosis of right carotid artery; G56.01 Carpal tunnel syndrome, right upper limb; K57.30 Diverticulosis of large intestine without perforation or abscess without bleeding; I10 Essential (primary) hypertension; I25.2 Old myocardial infarction; Z99.81 Dependence on supplemental oxygen; Z85.118 Personal history of other malignant neoplasm of bronchus and lung; R73.01 Impaired fasting glucose; I73.9 Peripheral vascular disease, unspecified; Z87.891 Personal history of nicotine dependence; N13.5 Crossing vessel and stricture of ureter without hydronephrosis; Z20.822 Contact with and (suspected) exposure to COVID-19; R91.1 Solitary pulmonary nodule; E78.2 Mixed hyperlipidemia; J44.9 Chronic obstructive pulmonary disease, unspecified
CPT/HCPCS: 36415; 71045; 80053; 87635; 93005; 94618; 94640; 96361; 96374; 99223; 99231; 99232; 99285; J1650; 71046; 83735; 83880; 84484; 85025; 85379; 93010; J2405; J2930; J7620

== ENCOUNTER → 2021-03-02 12:52 | Outpatient (BNVA) | payer MEDICARE, SELFPAY | PROVIDERS: Visit Provider Surgery | DX: J44.1 Chronic obstructive pulmonary disease with (acute) exacerbation (principal); J93.9 Pneumothorax, unspecified | CPT/HCPCS: 99212 ==

== ENCOUNTER 2021-03-03 02:26 | Outpatient (CLI) | payer MEDICARE, SELFPAY ==
--- NOTE | 2021-03-03 | DI.CT_ITS ---
Exam(s) CT CHEST W EXAM: CT CHEST W CLINICAL HISTORY: RUL LUNG CA,C34.11,S/P TREATMENT, ? STATUS OF DISEASE TECHNIQUE: Imaging Protocol: Axial computed tomography images with coronal and sagittal reformatted images were created and reviewed CONTRAST MATERIAL: Intravenous: Omnipaque 350 Contrast volume:70 ml. COMPARISON: CT CT CHEST W from 12/07/[address] CHEST W from 12/07/2020 CR XR CHEST 2V PA LATERAL from 02/19/2021 CR XR CHEST 2V PA LATERAL from 02/19/2021 FINDINGS: Tracheobronchial tree: No bronchiectasis or mucous plugging. Mediastinum and Iris: Stable right paratracheal lymph node. Pulmonary parenchyma: Severe emphysematous changes greatest in the upper lobes. Stable area of nodul ar scarring in the right upper lobe. Stable 8 millimeter nodule anterior left lower lobe, just above the diaphragm.. Stable 5 millimeter sub pleural nodule. Increased size of 6 millimeter nodule righ t lower lobe. It measured 3 millimeters on the previous exam. Pleura: No effusion or pneumothorax. Heart: The heart is not dilated. Mild coronary artery calcifications are seen. Aorta: Thoracic aorta non-dilated. Upper abdomen: Status post cholecystectomy. Bilateral renal cysts, right greater than left. Bones: Normal. : Soft tissues: Unremarkable. IMPRESSION: Interval increase in size of a 6 millimeter nodule in the left lower lobe. Other areas nodularity at the left lung base are stable. Stable right upper lobe scarring. Stable mediastinal adenopathy. RADIATION DOSE DELIVERED: 447.95mGy.cm Total DLP DATA REPOSITORY: All CT scans at this facility are submitted to the National Radiology Data Registry (NRDR) Dose Index Registry (DIR) with the [employer] (ACR). RADIATION OPTIMIZATION: All CT scans at this facility use at least one of these dose optimization te chniques: automated exposure control; mA and/or kV adjustment per patient size (includes targeted exa ms where dose is matched to clinical indication); or iterative reconstruction.
[2021-03-03 13:53] LABS: CREATININE 0.9 mg/dL (0.55-1.02)
[2021-03-03] MEDS: Omnipaque 350 MG/ML 100 ML BTL 70 ML IJ (14:38)
[2021-03-03] MEDS: Normal Saline - Diluent 50 ML VIAL IV (14:39)
== END 2021-03-03 02:46 ==
PROVIDERS: Visit Provider Nurse Practitioner
DX: C34.11 Malignant neoplasm of upper lobe, right bronchus or lung (principal); J98.4 Other disorders of lung; R91.1 Solitary pulmonary nodule; R59.0 Localized enlarged lymph nodes
CPT/HCPCS: 36415; 71260; 82565; J3490

== ENCOUNTER 2021-03-23 03:10 | Outpatient (CLI) | payer MEDICARE, SELFPAY ==
[2021-03-23 12:50] LABS: Calculated LDL 53 mg/dL (<100); Cholesterol 124 mg/dL (<200); HDL Cholesterol 56 mg/dL (40-60); Triglyceride 75 mg/dL (<150)
== END 2021-03-23 03:11 | disposition home or self-care (01) ==
LOC: LOS 03:10
DX: E78.2 Mixed hyperlipidemia (principal)
CPT/HCPCS: 36415; 80061

== ENCOUNTER 2021-03-28 13:50 | Emergency (ER) | payer MEDICARE, SELFPAY ==
[2021-03-28] VITALS (58 sets, daily range): BP systolic 92–151; BP diastolic 45–91; PULSE 97–154; RESP 8–31; TEMP 37–37.9; O2SAT 88–100
--- NOTE | 2021-03-28 13:45 | RT.EKG_ITS ---
APPROVED REPORT Exam: Resting ECG Reason for Exam: SOB' Patient Location: E HR:147 bpm ECG Measurements Heart Rate 147 AXIS UT 132 P 84 QRSd 67 QRS 86 QT 271 T [id number] QTc 424 Conclusion Supraventricular tachycardia...V-rate>(220-age), QRSd<120
--- NOTE | 2021-03-28 14:00 | DI.RAD_ITS ---
Exam(s) XR PORTABLE CHEST AP EXAM: XR PORTABLE CHEST AP CLINICAL HISTORY: fever and cough TECHNIQUE: 2D digital imaging was performed. COMPARISON: CT CT CHEST W from 03/03/2021 FINDINGS: LUNGS: Emphysematous and fibrotic changes, otherwise clear. No pleural abnormality seen. HEART: Normal. Calcification at the aortic arch. MEDIASTINUM: Normal. BONES: Unremarkable for age. IMPRESSION: Emphysematous changes. No acute pulmonary findings. DATA REPOSITORY: RADIATION DOSE DELIVERED:
--- NOTE | 2021-03-28 14:19 | ED.GENADUL_ITS ---
Discharge Plan Disposition Patient Disposition: HOME Condition: Stable Discharge Details Clinical Impression: COPD exacerbation, Shortness of breath Primary Care Provider: Sue Rodney ED Provider: Dave Bazan Home Meds and New Rx's Prescriptions: New prednisone 20 mg tablet 60 mg PO DAILY 4 Days Qty: 12 RF: 0 levofloxacin 750 mg tablet 750 mg PO DAILY Qty: 5 RF: 0 Continued Breztri Aerosphere 160-9-4.8 mcg/actuation HFA aerosol inhaler 2 inh inhalation BID Qty: 10.7 RF: 8 (DME) Space Chamber Plus 1 EACH spacer 1 ea Miscellaneous PRN Qty: 1 RF: 0 aspirin 81 mg tablet,delayed release (DR/EC) 81 mg PO DAILY Qty: 30 RF: 12 albuterol sulfate [ProAir HFA] 90 mcg/actuation HFA aerosol inhaler 2 puff Inhalation Q4H PRN Qty: 2 RF: 4 atorvastatin 80 mg tablet 80 mg PO QPM Qty: 90 RF: 4 lisinopril 10 mg tablet 10 mg PO Q24H Qty: 90 RF: 3 metoprolol tartrate 50 mg tablet 50 mg PO BID Qty: 60 RF: 3 acetaminophen [Tylenol] 325 mg Tablet 325 mg PO DAILY RF: 0 Discharge Instructions Instructions: COPD (Chronic Obstructive Pulmonary Disease) (ED) Additional Instructions: follow up with your primary care provider within 1 week you have an opacity on your lungs seen on the cat scan that has been present before and your primary care provider should know of this if you have worsening shortness of breath, fevers, feel more ill or chest pain return to the emergency department Medical Decision Making 76 yo female with hx of copd and recurrent pneumothoraces who had a left pneumothorax earlier this summer comes in with fever and shortness of breath for 3 days and left sided pleuritic chest pain. Denies any falls or trauma. Denies abdomen pain or vomit. She was initially in svt with rates of 150 but then after initial exam without treatment decreased to 130 and was in sinus tachycardia. She has wheezing at the apices bilaterally and diminished breath sound bilaterally at the bases. Concern for pneumonia, covid, and pneumothorax, will obtain lab work and cxr and ressess. Will also treat for copd exacerbation with duoneb and solumedrol pt's hr now 102 and labs show mag of 1.4 otherwise unremarkable, xray also with no acute findings, will obtain CTA to evaluate for pe vs infiltrate based on her symptoms. She does feel better after nebs and steroids pt continues to feel well and is stable. CTA shows no acute findings, has right upper lobe opacity that has been present in the past and she will have to f/u with pcp for this. She feels well enough for d/c, will cover her for copd exacerbation with levofloxacin and continued prednisone as an outpatient. ADvised to f/u with pcp and return precautions Differential Diagnosis Differential Diagnosis: pneumonia, copd, ptx Medical Records Medical records reviewed: Yes I reviewed the patient's medical records. Imaging Data Radiologic Study: Attestation: I personally reviewed and interpreted this imaging study as follows: Imaging: X-Ray My impression: no acute findings Radiologic Study #2: Attestation: I personally reviewed and interpreted this imaging study as follows: Imaging: X-Ray Radiologist's impression: IMPRESSION: 1. No evidence for pulmonary embolus. 2. Follow up right upper lobe opacity. There is been interval progression since previous exam. Lab Data Lab results reviewed: Yes I reviewed the patient's lab results. ECG Data Attestation: I personally reviewed and interpreted this ECG (s) as follows: Prior ECG tracings: available for review Interpretation: supraventricular tachycardia, rate of 150, pr 132 sinus tachycardia, rate of 120, no acute st t wave ischemic findings HPI General Date/Time Provider Initiated Documentation: 03/28/21 13:59 . Limitations to Documentation: no limitations . Information obtained by: patient . History of Present Illness 76 year old F presents to the emergency department with the chief complaint of shortness of breath, described as moderate, Patient reports no radiation. Patient started experiencing this day(s) (3) and it has been constant. No relieving factors improve symptom(s), No exacerbating factors reported . Patient notes fever/chills. Patient did receive the following treatments prior to arrival, none Related Data Home Medications Medication Instructions Recorded Confirmed Space Chamber Plus #1 06/09/16 03/28/21 aspirin 81 mg tablet,delayed 81 mg PO DAILY #30 tab 11/11/19 03/28/21 release acetaminophen [Tylenol] 325 mg PO DAILY 01/02/20 03/28/21 albuterol sulfate 90 mcg/actuation 2 puff INHALATION Q4H PRN #2 11/16/20 03/28/21 aerosol inhaler inhaler atorvastatin 80 mg tablet 80 mg PO QPM #90 tab 12/17/20 03/28/21 lisinopril 10 mg tablet 10 mg PO Q24H #90 tab 12/17/20 03/28/21 metoprolol tartrate 50 mg tablet 50 mg PO BID #60 tab 01/04/21 03/28/21 budesonide 160 mcg-glycopyr 9 2 inh INHALATION BID #10.7 g 03/12/21 03/28/21 mcg-formot 4.8 mcg/actuation HFA inhaler levofloxacin 750 mg PO DAILY #5 tab 03/28/21 prednisone 60 mg PO DAILY 4 Days #12 tab 03/28/21 Previous Rx's Medication Instructions Recorded aspirin 81 mg tablet,delayed 81 mg PO DAILY #30 tab 11/11/19 release albuterol sulfate 90 mcg/actuation 2 puff INHALATION Q4H PRN #2 11/16/20 aerosol inhaler inhaler atorvastatin 80 mg tablet 80 mg PO QPM #90 tab 12/17/20 lisinopril 10 mg tablet 10 mg PO Q24H #90 tab 12/17/20 metoprolol tartrate 50 mg tablet 50 mg PO BID #60 tab 01/04/21 budesonide 160 mcg-glycopyr 9 2 inh INHALATION BID #10.7 g 03/12/21 mcg-formot 4.8 mcg/actuation HFA inhaler levofloxacin 750 mg PO DAILY #5 tab 03/28/21 prednisone 60 mg PO DAILY 4 Days #12 tab 03/28/21 Allergies Allergy/AdvReac Type Severity Reaction Status Date / Time Tetanus Vaccines and Toxoid Allergy Mild LOCAL Verified 03/28/21 14:03 SWELLING General Stated Complaint: SOB SHIN: 2 Review of Systems All systems reviewed & are unremarkable except as noted in HPI and below Constitutional Constitutional: Denies chills, Denies fever(s) and Denies weakness Gastrointestinal Gastrointestinal: Denies abdominal pain, Denies nausea and Denies vomiting Musculoskeletal Musculoskeletal: Denies joint swelling Neurologic Neurologic: Denies weakness [facility] Medical History (Updated 03/28/21 @ 18:33 by Dave Bazan MD) Abnormal mammogram of left breast Abnormal weight loss (04/18/12) 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 Tx'ed w/XRT only in 2019 Muscle spasms of neck (01/29/18) Nasal bleeding Nodule of right lung (07/11/16) 2017 - patient reports that this was biopsied at [facility] in [place], and has been followed with PET/CT and was told that it is not cancerous 2019 - R upper lobe malignant neoplasm per [facility], completed radiation 06/2019. Following NSTEMI (non-ST elevated myocardial infarction) Oxygen dependent Peripheral vascular disease Pharyngitis Pneumonia (~09/2019) Polyp of colon PVD (peripheral vascular disease) Ruptured emphysematous bleb of lung Smoker Quit approx. October 05, 2018 while in-patient. Has not smoked since. 03/20/19 - Admits to 1 cigaret 1-2 per week. 12/19/19 - smoking 3-4 /day -01/2020 - QUIT again 03/16/21 - Reports NONE since 04/2020 Tubular adenoma (03/07/16) Colonoscopy 03/07/16 - 5 yr plan UPJ obstruction, acquired Uvulitis Surgical History Biopsy of breast R cyst aspiration many years ago Cholecystectomy (~01/2009) Colonoscopy - MAC (03/07/16) Dr Parisi excision CIS R buttock 2008 History of lung biopsy (~2015) Hysterectomy, Laproscopic (~1974) fibroid uterus ovaries remain Open Carpal Tunnel release left Status post breast biopsy Status post carpal tunnel release Status post cholecystectomy Surgery EXC/DEST INTVRT DISC NOS, 1991 C6-7 Family History Mother , 65 Cancer Sister , 65 Breast cancer Father , 75 Heart disease Sister Cancer Sister No problems noted. Brother Bone cancer Lung cancer Daughter No problems noted. Daughter No problems noted. Son No problems noted. Brother No problems noted. Maternal Grandfather No problems noted. Paternal Grandfather No problems noted. Maternal Grandmother No problems noted. Paternal Grandmother No problems noted. Social History (Updated 03/17/21 @ 18:10 by Annelise Henson) Smoking/Tobacco Use Status: Former Tobacco Use tobacco type: cigarettes Quit Date: 10/05/18 Tobacco: How many years used: 55 Second Hand Exposure: Yes Counseling given: patient declined Smoking risk assessment performed?: Yes Alcohol Intake: never Details: Quit smoking while in-patient. Caregiver/Support person: No Household members: spouse Housing: house Communication Needs: None Do you need help understanding health information?: Never Pets and animals: No Sexually active: No Do you think of yourself as: straight/heterosexual Current gender identity: female What is your relationship status?: How often do you talk on the phone with friends or family?: once per week Do you belong to any clubs or organized social groups?: no Panel score (0-1 are the most socially isolated patients): 1 What type of physical activity do you participate in: walking Duration: < 15 minutes/day Frequency: daily Special sonia needs: No Seatbelt use: always 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 Do you feel safe at home: Yes Do you feel safe in your relationship?: Yes Exam Const General: not lethargic Orientation: alert HENMT Head: normal to inspection Ears: external ears normal General nose exam: external nose normal Mouth: moist mucous membranes Eyes General: appearance normal, both eyes and all related structures Neck Neck: normal visual inspection Resp Effort & Inspection: no grunting, not labored and no nasal flaring Cardio Rate: tachycardic Skin General skin exam: no rashes or lesions noted Neuro General: patient alert and patient oriented x3 Extrem General: normal to inspection Psych Mental Status: mental status grossly normal Course Vital Signs Vital signs: Vital Signs Temperature 37.9 C H 03/28/21 13:58 Pulse 154 H 03/28/21 13:58 Respiratory Rate 31 H 03/28/21 13:58 Blood Pressure 151/81 H 03/28/21 13:58 Pulse Oximetry 95 03/28/21 13:58 Temperature 37.9 C H 03/28/21 13:58 Temperature Source Skin 03/28/21 13:58 Pulse 154 H 03/28/21 13:58 Respiratory Rate 31 H 03/28/21 14:09 Respiratory Effort 03/28/21 14:09 Respiratory Depth Normal 03/28/21 14:09 Respiratory Pattern Normal 03/28/21 14:09 Blood Pressure 151/81 H 03/28/21 13:58 Blood Pressure Position Supine 03/28/21 13:58 Pulse Oximetry 95 03/28/21 13:58 Oxygen Delivery Method Nasal Cannula 03/28/21 13:58 Oxygen Flow Rate 1 03/28/21 13:58 Pain Level 6 03/28/21 14:09 Lab/Test Results Lab/Test Results: 03/28/21 14:11 Blood Blood Culture - Pending 03/28/21 14:11 Blood Blood Culture - Pending
[2021-03-28 14:37] LABS: Abs Immature Grans 0.02 10^3/uL (0.0-0.06); HCT 38.3 % (36.0-46.0); MCH 26.3 pg (27.0-33.0); MCHC 31.3 % (32.0-36.0); MPV 12.1 fL (8.0-11.0); Nucleated RBC 0 %; RBC 4.56 10^6/uL (3.93-5.22); RDW 14.5 % (11.7-14.6); RDW-SD 44.2 fL; WBC 3.92 10^3/uL (4.4-10.8)
[2021-03-28 14:45] LABS: Magnesium 1.4 mg/dL (1.8-2.4)
[2021-03-28 14:53] LABS: Absolute Lymphocyte Count 0.39 10^3/uL (1.2-3.4); Absolute Monocyte Count 1.49 10^3/uL (0.1-0.8); Absolute Neutrophil Count 2.04 10^3/uL (1.2-6.7); Atypical Lymphocytes % 1; INR 1.1 (0.9-1.1); PTT Activated 29.6 sec (21.0-27.5); Prothrombin Time 10.9 sec (9.3-11.0); Troponin I < 0.05 ng/mL (<0.06)
[2021-03-28 14:55] LABS: Basophilic Stippling Present; Diff Comment Manual Differential; Polychromasia Present
[2021-03-28] MEDS: Normal Saline 1,000 ML 1000 ML IV (14:55)
[2021-03-28 14:57] LABS: Platelet Count 128 10^3/uL (130-400)
[2021-03-28 15:00] LABS: Source Nasal/Nares
[2021-03-28] MEDS: methylPREDNISolone SUCC 125 MG VIAL IVP (15:01)
[2021-03-28] MEDS: Albuterol/Ipratropium 3 ML UPD VIAL UPD ×2 (15:24→16:21)
--- NOTE | 2021-03-28 15:30 | DI.CT_ITS ---
Exam(s) CT CHEST PE CTA EXAM: CT CHEST PE CTA CLINICAL HISTORY: shortness of breath, fever. TECHNIQUE: Imaging Protocol: Axial CT angiography was performed with multi-slice acquisition and mu lti-planar and/or 3D reconstructions. CONTRAST MATERIAL: Intravenous: Omnipaque 350 Contrast volume:structured data in ml COMPARISON: CT CT CHEST W from 03/03/2021 FINDINGS: Pulmonary Arteries: No evidence of filling defect to suggest pulmonary emboli. Tracheobronchial tree: Patent where visualized. Mediastinum and Iris: No dominant adenopathy or fluid collection. Pulmonary parenchyma: Right upper lobe scarring and adjacent pleural thickening. Emphysematous ramsey es. Stable left lower lobe nodules. No acute infiltrate. Pleura: No effusion or pneumothorax. Heart: The heart is not dilated. coronary artery calcifications are seen. Aorta: Thoracic aorta non-dilated. Atherosclerotic changes. No dissection. Upper abdomen: Unremarkable. Bones: No compression fracture or suspicious lesions. IMPRESSION: No evidence of pulmonary embolism. History right upper lobe lung cancer with post treatment changes. No acute infiltrate. RADIATION DOSE DELIVERED: 296.91mGy.cm Total DLP DATA REPOSITORY: All CT scans at this facility are submitted to the National Radiology Data Registry (NRDR) Dose Index Registry (DIR) with the [employer] (ACR). RADIATION OPTIMIZATION: All CT scans at this facility use at least one of these dose optimization te chniques: automated exposure control; mA and/or kV adjustment per patient size (includes targeted exa ms where dose is matched to clinical indication); or iterative reconstruction.
--- NOTE | 2021-03-28 15:39 | DI.VRAD_ITS ---
PROCEDURE INFORMATION: Exam: XR Chest Exam date and time: 03/28/2021 2:12 PM Age: 76 years old Clinical indication: Other: Fever and cough TECHNIQUE: Imaging protocol: XR of the chest. Views: 1 view. Other technique: Portable exam. COMPARISON: CT CHEST W 03/03/2021 2:40 PM. Chest x-ray 02/19/21. FINDINGS: Lungs: The lungs are hyperaerated and hyperlucent consistent with COPD. No focal infiltrates. Pleural spaces: Unremarkable. No pleural effusion. No pneumothorax. Heart/Mediastinum: Unremarkable. No cardiomegaly. Bones/joints: See Lungs finding. Organs: Status post cholecystectomy. IMPRESSION: COPD without evidence for acute abnormality. Dictated and Authenticated by: Debby Adler MD. Ordering:FAY Acosta MD
[2021-03-28] MEDS: MAGNESIUM SULFATE 2 GM/50 ML BAG IVPB (15:59)
[2021-03-28 16:09] LABS: COVID-19 PCR Negative (Negative)
[2021-03-28] MEDS: Normal Saline 1,000 ML 150 ML IV (16:13)
[2021-03-28 16:36] LABS: ALT 10 U/L (14-59); AST 27 U/L (15-37); Albumin 3.2 g/dL (3.4-5.0); Alkaline Phosphatase 81 U/L (46-116); Anion Gap 11.7 mmol/L (3-11); BUN 26 mg/dL (7-18); Bilirubin, Total 1.9 mg/dL (0.2-1.0); CO2 23.3 mmol/L (21.0-32.0); CREATININE 1.3 mg/dL (0.55-1.02); Calcium 9.5 mg/dL (8.5-10.1); Chloride 98 mmol/L (98-107); Estimated GFR 40.04 (mL/min/1.73m2); Glucose 117 mg/dL (74-106); Potassium 4.1 mmol/L (3.5-5.1); Sodium 133 mmol/L (136-145); Total Protein 8.1 g/dL (6.4-8.2)
--- NOTE | 2021-03-28 17:15 | RT.EKG_ITS ---
APPROVED REPORT Exam: Resting ECG Reason for Exam: sob Patient Location: E HR:118 bpm ECG Measurements Heart Rate 118 AXIS OK 145 P 83 QRSd 67 QRS 89 QT 294 T -70 QTc 412 Conclusion Sinus tachycardia...rate> 99
[2021-03-28] MEDS: Omnipaque 350 MG/ML 100 ML BTL IJ (17:18)
[2021-03-28] MEDS: Normal Saline Flush 10 ML SYR IVP (17:18)
[2021-03-28 17:51] LABS: Troponin I < 0.05 ng/mL (<0.06)
--- NOTE | 2021-03-28 18:13 | DI.VRAD_ITS ---
PROCEDURE INFORMATION: Exam: CTA Chest With Contrast Exam date and time: 03/28/2021 3:39 PM Age: 76 years old Clinical indication: Fever and shortness of breath TECHNIQUE: Imaging protocol: Computed tomographic angiography of the chest with contrast. 3D rendering (Not supervised by radiologist): MIP and/or 3D reconstructed images were created by the technologist. Contrast material: OMNIPAQUE 350; Contrast volume: 100 ml; Contrast route: INTRAVENOUS (IV); COMPARISON: CT CHEST PE CTA 05/01/2020 8:54 PM FINDINGS: Pulmonary arteries: Normal. No pulmonary emboli. Aorta: Mild atherosclerotic change noted in the vasculature. Thyroid: There is some minimal right upper lobe posterior pleural thickening with some spiculation in the adjacent parenchyma, poorly defined. This was present on prior study but appears to have progressed. Lungs: Moderate COPD. Pleural spaces: Unremarkable. No pneumothorax. No pleural effusion. Heart: Unremarkable. No cardiomegaly. No pericardial effusion. Lymph nodes: Unremarkable. No enlarged lymph nodes. Gallbladder and bile ducts: Status post cholecystectomy. Kidneys and ureters: Decreased perfusion right kidney with hydronephrosis appreciated at the upper pole level. Right renal cyst. Bones/joints: Unremarkable. No acute fracture. Soft tissues: Unremarkable. IMPRESSION: 1. No evidence for pulmonary embolus. 2. Follow up right upper lobe opacity. There is been interval progression since previous exam. Dictated and Authenticated by: Debby Adler MD. Ordering:FAY Acosta MD
[2021-03-28] MEDS: levoFLOXacin 500 MG, levoFLOXacin 250 MG 750 MG PO (18:53)
== END 2021-03-28 19:20 | disposition home or self-care (01) ==
PROVIDERS: Emergency Provider Emergency Medicine
DX: J44.1 Chronic obstructive pulmonary disease with (acute) exacerbation (principal); Z87.891 Personal history of nicotine dependence; R06.02 Shortness of breath
CPT/HCPCS: 36415; 71275; 80053; 87040; 87635; 93005; 94640; 96361; 96365; 96366; 96375; 99285; 71045; 83735; 84484; 85025; 85610; 85730; 93010; 99284; J2930; J3490; J7620

== ENCOUNTER 2021-04-09 03:29 | Outpatient (CLI) | payer MEDICARE, SELFPAY ==
--- NOTE | 2021-04-09 07:00 | DI.MAMMO_ITS ---
Exam(s) MAMMO SCREENING EXAM: MAMMO SCREENING CLINICAL HISTORY: screening,Z12.39 TECHNIQUE: Bilateral full field digital CC and MLO mammographic images were obtained with 3D tomosyn thesis and utilizing computer aided detection (CAD). COMPARISON: Available for comparison. FINDINGS: Masses/Architectural Distortion: None seen. Microcalcifications: No suspicious pleomorphic-type are seen. Skin Thickening/Nipple Retraction: None. IMPRESSION: 1. No significant interval change with no specific features of malignancy noted. 2. Unless there is more urgent need, screening mammography is recommended, as per [employer] guidelines. BI-RADS Category 1 - Negative Breast Density - Category C - Heterogeneously dense Breast density category C or D implies that the patient has dense breast tissue. Dense breast tissue is very common and is not abnormal but dense breast tissue can make it harder to find cancer on a ma mmogram. Also, dense breast tissue may increase their breast cancer risk. This information about the result of the mammogram report was provided to the patient to raise their awareness. Use this report when you speak with the patient about their risks for breast cancer, which includes their family hist ory. At that time, you may recommend for more screening tests (Ultrasound or MRI) as they might be us eful based on their risk. A negative radiographic report should not delay biopsy if a dominant or clinically suspicious mass is present. Up to ten percent of cancers are not identified on mammography. A negative report may reinforce clinical impression. Adenosis and dense breasts may obscure an underlying neoplasm. False positive reports average 6 to 10%. Patient will receive a letter notifying them of these results.
== END 2021-04-09 03:49 ==
DX: Z12.31 Encounter for screening mammogram for malignant neoplasm of breast (principal)
CPT/HCPCS: 77063; 77067

== ENCOUNTER 2021-06-01 01:00 | Outpatient (CLI) | payer MEDICARE, SELFPAY ==
--- NOTE | 2021-06-01 12:52 | DI.US_ITS ---
APPROVED REPORT EXAM: Comprehensive 2D, Doppler, and color-flow Echocardiogram Patient Location: Out-Patient Replanting Machine Operator: Dolores Davenport RDCS (AE) Indications: Atypical chest discomfort, Cardiovascular and cerebrovascular disease Other Information Study Quality: Fair. Technically limited study due to body habitus. Conclusion Normal left ventricular wall thickness and chamber size. Estimated ejection fraction is 55 to 60%. Wall motion is normal Right ventricle is not well visualized Both atria are normal in size The aortic valve is sclerotic and trileaflet without stenosis or regurgitation Mild mitral annular calcification with trace to mild regurgitation Normal tricuspid valve with trace regurgitation Wall motion Left Ventricle The left ventricle is normal size. The left ventricular systolic function is normal. The left ventric ular ejection fraction is within the normal range. There is normal left ventricular wall thickness. T here is normal LV segmental wall motion. There is no ventricular septal defect visualized. LVEF is 57 %. Right Ventricle Right ventricle is not well visualized. Right ventricular systolic function could not be assessed. Th e RVSP is 28.1 mmHg. Atria The left atrium size is normal. The right atrium size is normal. The interatrial septum is intact wit h no evidence for an atrial septal defect. Aortic Valve The Aortic valve is sclerotic. There is no aortic valvular stenosis. No aortic regurgitation is prese nt. Mitral Valve Mild mitral annular calcification. No evidence of mitral valve stenosis. Trace to mild mitral regurgi tation. Tricuspid Valve The tricuspid valve is normal in structure. There is no tricuspid valve stenosis. Trace tricuspid reg urgitation. Pulmonic Valve Pulmonic valve is not well visualized. There is no pulmonic valvular stenosis. There is no pulmonic v alvular regurgitation. Great Vessels The aortic root is normal in size. Ascending aorta is not well visualized. IVC is normal in size and collapses >50% with inspiration. Pericardium There is no pericardial effusion. 2D Dimensions IVSD d PLAX 0.89 cm F: 0.6-1.0 LV Vol A2C d MOD 76.1 mL LVPW d PLAX 0.89 cm F: 0.6 - 1.0 LV Vol A4C d MOD 46.8 mL LVID d PLAX 4.33 cm F: 3.8 - 5.2 LA vol/ BSA A2C s A-L 19.1 mL/m2 LVDs 2.90 cm F: 2.2 - 3.5 LA vol/ BSA A4C s A-L 17.0 mL/m2 Ao Root d 2.72 cm F: 2.7 - 3.3 LA Vol/ BSA Biplane s A-L 19.1 mL/m2 RA Area A4C 8.38 cm2 LA Area A4C s MOD 11.96 cm2 RA Vol/ BSA A4C s A-L 10.7 mL/m2 LA Area A2C s MOD 11.96 cm2 LV EF Teichholz 60.4 % LV EF A4C MOD 58.2 % LVEF (Irving's) 55.99 % F: 54 - 74 LV EF A2C MOD 57.2 % LV Volume 50.57 mL F: 46 - 106 LV EF Biplane MOD 56.0 % LV Volume Index 31.60 mL/m2 F: 29 - 61 SV 34.86 mL LV Vol Biplane MOD 62.3 mL SV Index 21.76 mL/m2 FS 32.00 % M-Mode TAPSE 1.31 cm (M/F) >1.7 LV Diastology MV E' medial 0.106 (>0.07 m/s) E/A Ratio 1.1 LV E/e MED 8.45 (<14) MV E Vmax 0.90 (0.4-1.3 m/s) MV E' lateral 0.096 (>0.1 m/s) MV A Vmax 0.80 (0.4-1.3 m/s) LV E/e LAT 9.35 (<14) MV E/A Ratio 1.07 MV E/E' medial 8.49 MV E/E' lateral 9.35 Aortic Valve LVOT Area 2.74 cm2 AoV Area Vmax 2.44 cm2 LVOT Vmax 0.78 m/s AoV Area/ BSA (Vmax) 1.52 cm2/m2 LVOT Mean [place]. 0.51 m/s ANGELES Mean Jose [place]. 2.35 cm2 LVOT Peak Grad 2.4 mmHg ANGELES Mean Jose [place]. Index 1.47 cm2/m2 LVOT Mean Grad 1.2 mmHg LVOT VTI 0.162 m LVOT Diam s 1.85 cm AoV Vmax 0.87 m/s Velocity Ratio 0.89 AoV Mean Jose [place]. 0.60 m/s AoV Peak Grad 3.0 mmHg LVOT SV 44.42 mL AoV Mean Grad 1.6 mmHg AoV VTI 0.191 m AoV Area VTI 2.32 cm2 AoV Area/ BSA (VTI) 1.45 cm/m2 Mitral Valve MV DT 171 (160-240 msec) MV PHT 50 msec MV Area PHT 4.43 cm2 MV VTI 0.346 m MV Area VTI 1.29 (4.0-6.0 cm2) Pulmonary Valve PV Vmax 0.71 (0.5-1.5 m/s) RVOT Peak Gr. 1.69 mmHg PV Peak Grad 2.0 mmHg RVOT Mean Gr. 0.80 mmHg PV Mean Grad 1.2 mmHg RVOT VTI 0.118 m PV VTI 0.154 m RVOT Vmax 0.65 m/s Tricuspid Valve TR Peak Grad 25.1 mmHg TR Vmax 2.51 m/s RA Pressure 3.00 mmHg RVSP (TR) 28.1 mmHg
== END 2021-06-01 01:20 ==
DX: I25.10 Atherosclerotic heart disease of native coronary artery without angina pectoris (principal); R07.89 Other chest pain; R93.9 Diagnostic imaging inconclusive due to excess body fat of patient; I08.0 Rheumatic disorders of both mitral and aortic valves
CPT/HCPCS: 93016; 93018; 93306

== ENCOUNTER → 2021-06-03 12:39 | Outpatient (BNVA) | payer MEDICARE, SELFPAY | PROVIDERS: Visit Provider Internal Medicine Cardiovascular Disease | DX: I25.10 Atherosclerotic heart disease of native coronary artery without angina pectoris (principal); J43.2 Centrilobular emphysema; I73.9 Peripheral vascular disease, unspecified; I10 Essential (primary) hypertension; Z87.891 Personal history of nicotine dependence | CPT/HCPCS: 99214 ==

== ENCOUNTER → 2021-06-28 09:54 | Outpatient (BNVA) | payer MEDICARE, SELFPAY | PROVIDERS: Visit Provider Surgery | DX: R69 Illness, unspecified (principal) ==

== ENCOUNTER → 2021-12-15 03:43 | Outpatient (CLI) | payer MEDICARE, SELFPAY ==
--- NOTE | 2021-12-15 15:30 | DI.CT_ITS ---
Exam(s) CT CHEST WO EXAM: CT CHEST WO CLINICAL HISTORY: RT LUNG CA, C34.11, F/U NEW NODULE, 6 MM FDG AVID NODULE AMRIK. TECHNIQUE: Imaging protocol: Axial computed tomography images were obtained and coronal and sagittal reformatted images were created and reviewed. COMPARISON: CT CT CHEST W from 03/03/[address] CHEST PE CTA from 03/28/2021 FINDINGS: The examination is limited due to patient motion artifact. Tracheobronchial tree: Patent where visualized. Pulmonary parenchyma: There is stable scarring in the right lung apex. There has been no significant change in appearance of the 7 mm left lower lobe pulmonary nodule. There is a stable 0.3 cm subpleu ral nodule in the lateral aspect of the left upper lobe. There is a new 6 mm nodule in the medial as pect of the right lower lobe. Moderately severe emphysematous changes are present in the lungs. Mediastinum and Iris: Stable mediastinal lymph nodes. The esophagus is unremarkable. Thyroid gland: Unremarkable. Pleura: No effusion or pneumothorax. Heart: The heart is not dilated. Coronary artery calcifications are present. No pericardial effusion . Aorta: Thoracic aorta non-dilated. Atherosclerosis. Upper abdomen: Status post cholecystectomy. Bilateral renal cysts. Lymph nodes: Within normal limits. Soft tissues: Unremarkable. Bones:Within normal limits for the patient's age. No suspicious lytic or sclerotic lesions are prese nt in the bones. IMPRESSION: 1. New 6 mm nodule in the medial aspect of the right lower lobe. Otherwise stable pulmonary nodules. 2. Stable scarring in the right lung apex. 3. Moderately severe emphysematous changes in the lungs. RADIATION DOSE DELIVERED: 401.05mGy.cm Total DLP 401.05mGy.cm Total DLP DATA REPOSITORY: All CT scans at this facility are submitted to the National Radiology Data Registry (NRDR) Dose Index Registry (DIR) with the [employer] (ACR). RADIATION OPTIMIZATION: All CT scans at this facility use at least one of these dose optimization te chniques: automated exposure control; mA and/or kV adjustment per patient size (includes targeted exa ms where dose is matched to clinical indication); or iterative reconstruction.
[2021-12-15 15:37] LABS: CREATININE 1.1 mg/dL (0.55-1.02); Estimated GFR 48.55 (mL/min/1.73m2)
== END ==
PROVIDERS: Visit Provider Nurse Practitioner Family
DX: C34.11 Malignant neoplasm of upper lobe, right bronchus or lung (principal); Z01.812 Encounter for preprocedural laboratory examination; J43.8 Other emphysema; R91.1 Solitary pulmonary nodule
CPT/HCPCS: 71250; 82565

== ENCOUNTER → 2021-12-28 00:49 | Outpatient (CLI) | payer MEDICARE, SELFPAY ==
--- NOTE | 2021-12-28 07:15 | DI.RAD_ITS ---
Exam(s) XR SHOULDER LT COMPLETE 2+V EXAM: XR SHOULDER LT COMPLETE 2+V CLINICAL HISTORY: shoulder pain, left extends down arm, no known injury,m25.512. TECHNIQUE: 2D digital imaging was performed. Three views. COMPARISON: No exams were available for comparison FINDINGS: BONES: No acute fracture is present. No bony destructive lesion is seen. JOINTS: No dislocation present. Minimal degenerative changes at the AC joint and glenoid. Glenohume ral joint space is well maintained. SOFT TISSUE: Normal. IMPRESSION: Minimal degenerative changes. DATA REPOSITORY: RADIATION DOSE DELIVERED:
--- NOTE | 2021-12-28 07:15 | DI.RAD_ITS ---
Exam(s) XR CERVICAL SPINE COMP 4-5V EXAM: XR CERVICAL SPINE COMP 4-5V CLINICAL HISTORY: cervical pain/spasms: radiates to left shoulder/arm,headache,f51.9. TECHNIQUE: 2D digital imaging was performed. COMPARISON: CR CERVICAL SP. LIMITED (TRAUMA) from 05/19/2011 FINDINGS: BONES: No fracture or destructive lesion. Vertebral bodies are unremarkable. DISKS: There is moderate loss of disc height at C5-6, not significantly changed. There has been prev ious fusion with disc spacer at the C6-7 level. The remaining intervertebral disc spaces are maintai figueroa. There are facet degenerative changes throughout. The combination of the degenerative changes ca uses bilateral neural foraminal narrowing at C5-6. The neural foramen are not well profiled on the l eft but neural foraminal narrowing at C3-4 and C4-5 is suspected. ALIGNMENT: Cervical spinal alignment is within normal limits. The odontoid and atlantoaxial articulat ions are normal. SOFT TISSUE: Normal. The lung apices are clear. IMPRESSION: Degenerative changes greatest of the facet joints. Multilevel left-sided neural foraminal narrowing. DATA REPOSITORY: RADIATION DOSE DELIVERED:
== END ==
DX: M25.512 Pain in left shoulder (principal); R51.9 Headache, unspecified; M19.012 Primary osteoarthritis, left shoulder; M54.2 Cervicalgia; M62.838 Other muscle spasm; Z98.1 Arthrodesis status; M47.812 Spondylosis without myelopathy or radiculopathy, cervical region
CPT/HCPCS: 72050; 73030

== ENCOUNTER → 2022-04-07 02:17 | Outpatient (CLI) | payer MEDICARE, SELFPAY ==
--- NOTE | 2022-04-07 | DI.CT_ITS ---
Exam(s) CT CHEST WO EXAM: CT CHEST WO CLINICAL HISTORY: LUNG CANCER C34.11 C34.31 MULTIPLE PULMONARY NODULES, ? METS. TECHNIQUE: Imaging protocol: Axial computed tomography images were obtained and coronal and sagittal reformatted images were created and reviewed. COMPARISON: CT CT CHEST WO from 12/15/2021 FINDINGS: Tracheobronchial tree: Patent where visualized. Pulmonary parenchyma: There has been no change in the 7 mm nodule in the medial aspect of the right l perfecto base. There is stable scarring in the right upper lobe. Emphysematous changes are present in th e lungs. The nodule in the lateral aspect of the left lower lobe now contains air centrally. It ajit sures 1.1 cm. There has been no change in the 3 mm nodule in the lateral aspect of the left upper lo be. There is a 1 cm area of nodularity in the anterolateral aspect of the left lower lobe. There ar e stable triangular shaped nodules associated with both the left and right major fissures. Mediastinum and Iris: There are stable mediastinal lymph nodes. The esophagus is unremarkable. Thyroid gland: Unremarkable. Pleura: No effusion or pneumothorax. Heart: The heart is not dilated. Coronary artery calcifications are present. No pericardial effusion . Aorta: Thoracic aorta non-dilated. Atherosclerosis is present. Upper abdomen: Status post cholecystectomy. Unchanged size of the common bile duct. Stable right r enal cyst. Stable dilatation of the right renal collecting system. Lymph nodes: Within normal limits. Soft tissues: Unremarkable. Bones:Within normal limits for the patient's age. IMPRESSION: 1. Multiple pulmonary nodules. Interval increase in size of a 1 cm nodule in the anterolateral aspec t of the left lower lobe. 2. Stable right apical scarring. RADIATION DOSE DELIVERED: 376.45mGy.cm Total DLP 376.45mGy.cm Total DLP DATA REPOSITORY: All CT scans at this facility are submitted to the National Radiology Data Registry (NRDR) Dose Index Registry (DIR) with the [employer] (ACR). RADIATION OPTIMIZATION: All CT scans at this facility use at least one of these dose optimization te chniques: automated exposure control; mA and/or kV adjustment per patient size (includes targeted exa ms where dose is matched to clinical indication); or iterative reconstruction.
== END ==
PROVIDERS: Visit Provider Nurse Practitioner Family
DX: C34.11 Malignant neoplasm of upper lobe, right bronchus or lung (principal); C34.31 Malignant neoplasm of lower lobe, right bronchus or lung; R91.8 Other nonspecific abnormal finding of lung field; J98.4 Other disorders of lung
CPT/HCPCS: 71250

== ENCOUNTER 2022-05-19 13:11 | Emergency (ER) | payer MEDICARE, SELFPAY ==
[2022-05-19] VITALS (22 sets, daily range): BP systolic 124–171; BP diastolic 58–95; PULSE 78–138; RESP 12–27; TEMP 36.6; O2SAT 84–99
--- NOTE | 2022-05-19 13:30 | RT.EKG_ITS ---
APPROVED REPORT Exam: Resting ECG Reason for Exam: Tachycardia and shortness of breath Patient Location: E HR:110 bpm ECG Measurements Heart Rate 110 AXIS AR 133 P 84 QRSd 66 QRS 87 QT 310 T -19 QTc 419 Conclusion Sinus tachycardia...rate> 99
--- NOTE | 2022-05-19 13:45 | DI.RAD_ITS ---
Exam(s) XR PORTABLE CHEST AP EXAM: XR PORTABLE CHEST AP CLINICAL HISTORY: chest pain left TECHNIQUE: 2D digital imaging was performed of the chest. One image was obtained. An AP view was ob tained. COMPARISON: CR,XR XR PORTABLE CHEST AP from 03/28/2021 CR XR CERVICAL SPINE COMP 4-5V from 12/28/2021 FINDINGS: MEDIASTINUM: Normal. HEART: Normal. PULMONARY VASCULATURE: Normal. LUNGS: No focal consolidating infiltrates are present. The lungs are hyperinflated suggesting underl abhay COPD. PLEURAL SPACE: No pleural effusion or pneumothorax. BONE:Within normal limits for the patient's age. OTHER FINDINGS:Surgical clips are seen in the right upper quadrant of the abdomen which may reflect p rior cholecystectomy. IMPRESSION: No acute pulmonary findings. DATA REPOSITORY: RADIATION DOSE DELIVERED:
[2022-05-19] MEDS: HYDROmorphone 2 MG/ML SYR 1 MG IVP (14:20)
[2022-05-19 14:36] LABS: Abs Immature Grans 0.07 10^3/uL (0.0-0.06); HCT 49.7 % (36.0-46.0); HGB 15.4 g/dL (11.2-15.7); MCV 84 fL (80-95); Platelet Count 143 10^3/uL (130-400); RBC 5.92 10^6/uL (3.93-5.22); RDW 12.8 % (11.7-14.6); RDW-SD 38.5 fL; WBC 5.25 10^3/uL (4.4-10.8)
--- NOTE | 2022-05-19 14:45 | DI.CT_ITS ---
Exam(s) CT CHEST PE CTA EXAM: CT CHEST PE CTA CLINICAL HISTORY: left chest pain. TECHNIQUE: Imaging Protocol: Axial CT angiography was performed with multi-slice acquisition and mu lti-planar and/or 3D reconstructions. CONTRAST MATERIAL: Intravenous: Omnipaque 350 contrast volume:60 mL. COMPARISON: CT CT CHEST WO from 04/07/2022 FINDINGS: Tracheobronchial tree: Patent where visualized. Pulmonary parenchyma: No consolidation or dominant measurable mass. There are emphysematous changes i n the lungs. There is stable scarring in the right upper lobe. The lung nodules are stable. No new infiltrates are seen. Pulmonary Arteries: No evidence of filling defect to suggest pulmonary emboli. Mediastinum and Iris: No dominant adenopathy or fluid collection. The esophagus is unremarkable. Visualized thyroid gland: Unremarkable. Pleura: No effusion or pneumothorax. Heart: The heart is not dilated. Coronary artery calcification is present. No pericardial effusion. Aorta: Thoracic aorta non-dilated. No evidence of dissection. Atherosclerosis is present. Upper abdomen: Status post cholecystectomy. Right renal cyst. Soft tissues: Unremarkable. Bones: Within normal limits for the patient's age.There does appear to be healing nondisplaced fractu re of the left 5th rib laterally. IMPRESSION: 1. No evidence of pulmonary embolism, thoracic aortic dissection or aneurysm. 2. There is a healing nondisplaced fracture of the left 5th rib laterally. 3. Stable pulmonary findings. 4. Findings were discussed with Dr. Sampson at 4:30 p.m. on 05/19/2022 RADIATION DOSE DELIVERED: 118.32 mGy.cm Total DLP DATA REPOSITORY: All CT scans at this facility are submitted to the National Radiology Data Registry (NRDR) Dose Index Registry (DIR) with the [employer] (ACR). RADIATION OPTIMIZATION: All CT scans at this facility use at least one of these dose optimization te chniques: automated exposure control; mA and/or kV adjustment per patient size (includes targeted exa ms where dose is matched to clinical indication); or iterative reconstruction.
[2022-05-19 14:48] LABS: Absolute Eosinophil Count 0.11 10^3/uL (0.0-0.7); Absolute Lymphocyte Count 0.95 10^3/uL (1.2-3.4); Absolute Monocyte Count 0.42 10^3/uL (0.1-0.8); Absolute Neutrophil Count 3.78 10^3/uL (1.2-6.7); Atypical Lymphocytes % 2; Bands % 1; Diff Comment Manual Differential; RBC Morphology Normal
[2022-05-19 14:50] LABS: AST 28 U/L (15-37); Albumin 4.5 g/dL (3.4-5.0); Alkaline Phosphatase 177 U/L (46-116); BUN 20 mg/dL (7-18); Bilirubin, Total 1.8 mg/dL (0.2-1.0); CREATININE 1.3 mg/dL (0.55-1.02); Chloride 98 mmol/L (98-107); Estimated GFR 42.88 (mL/min/1.73m2); Glucose 80 mg/dL (74-106); Sodium 137 mmol/L (136-145); Total Protein 9.9 g/dL (6.4-8.2)
[2022-05-19 14:51] LABS: ALT < 6 U/L (14-59); Troponin I < 50 ng/L (<or=60)
[2022-05-19] MEDS: Normal Saline Flush 10 ML SYR IVP (15:13)
[2022-05-19] MEDS: Ondansetron 4 MG/2 ML VIAL (15:19)
[2022-05-19] MEDS: Omnipaque 350 MG/ML 100 ML BTL IJ (15:28)
[2022-05-19] MEDS: Metoclopramide 10 MG/2 ML VIAL IVP (16:16)
--- NOTE | 2022-05-19 17:33 | ED.GENADUL_ITS ---
Discharge Plan Disposition Patient Disposition: HOME Condition: Stable Discharge Details Clinical Impression: Left rib fracture Primary Care Provider: Sue Rodney ED Provider: Lyndon Sampson Home Meds and New Rx's Prescriptions: Continued ipratropium-albuterol 0.5 mg-3 mg(2.5 mg base)/3 mL solution for nebulization 3 ml inhalation QID PRN (Reason: wheezing/COPD J43.2) Qty: 90 3RF (DME) Space Chamber Plus 1 EACH spacer 1 ea Miscellaneous PRN Qty: 1 albuterol sulfate [ProAir HFA] 90 mcg/actuation HFA aerosol inhaler 2 puff Inhalation Q4H PRN Qty: 2 4RF lisinopril 10 mg tablet 10 mg PO Q24H Qty: 90 3RF Breztri Aerosphere 160-9-4.8 mcg/actuation HFA aerosol inhaler See Rx Instructions .ROUTE .COMPLEX Qty: 10.7 8RF Dose Instruction: INHALE TWO PUFFS BY MOUTH TWICE A DAY FOR COPD Rx Instructions: INHALE TWO PUFFS BY MOUTH TWICE A DAY FOR COPD acetaminophen [Tylenol] 325 mg tablet 325 mg PO DAILY PRN No Action mirtazapine 15 mg tablet 15 mg PO QHS Qty: 30 0RF meclizine 12.5 mg Tablet 12.5 mg PO TID PRN PRNQty: 0 0RF lidocaine 5 % Adhesive Patch,Medicated 2 patch topical HS Qty: 0 0RF Discharge Instructions Instructions: How to Use an Incentive Spirometer (ED), Rib Fracture (ED) Additional Instructions: Use incentive spirometer as reviewed every 2 hours while awake over the next 1 week. Please take acetaminophen (tylenol) - 650mg every 6 hours by mouth as needed for pain. Please take ibuprofen over the counter. Take 600mg by mouth every 6 hours as needed for pain. Use lidocaine patch - these are available [id number]. Dose according to label. Please contact your primary care physician to arrange follow-up. Return to the ER immediately for any worsening or new concerning symptoms. Referrals: [facility] [Provider Group] Discharge Data Discharge Date/Time-TO BE ENTERED AT DEPARTURE: 05/19/22 18:11 Medical Decision Making -- 77-year-old female with history of hypertension, COPD, pneumothoraxes in the past, here with shortness of breath and pleuritic chest discomfort over the past 2 days. Patient tender left lateral chest. Considered acute pulmonary embolism. CT of the chest was interpreted by radiology: IMPRESSION: 1. No evidence of pulmonary embolism, thoracic aortic dissection or aneurysm.? 2. There is a healing nondisplaced fracture of the left 5th rib laterally. 3. Stable pulmonary findings. 4. Findings were discussed with Dr. Sampson at 4:30 p.m. on 05/19/2022 I suspect symptoms are related to COPD with rib fracture. Patient was treated with Dilaudid and lidocaine patch. She did have some nausea after Dilaudid and antiemetic was provided. All results were discussed with the patient. Plan for discharge with outpatient follow-up. Usual customary discharge instructions reviewed with patient. She understands importance of timely follow-up with PCP. HPI General Mode of arrival: ambulatory . Date/Time Provider Initiated Documentation: 05/19/22 13:32 . Limitations to Documentation: no limitations . Information obtained by: patient . HPI Narrative: 77-year-old female with history of COPD, coronary artery disease, hypertension, as well as pneumothoraces in the past, presents with chief complaint of difficulty breathing. Patient notes trouble breathing over the past 2 days. Patient notes symptoms are similar to when she has had pneumothorax in the past. Patient notes difficulty with deep inspiration and also associated pain on inspiration left lateral chest. No associated leg swelling or calf pain patient denies known trauma. Related Data Home Medications Medication Instructions Recorded Confirmed inhalational spacing device (Space ##1 06/09/16 06/03/22 Chamber Plus) acetaminophen 325 mg tablet 325 mg PO DAILY PRN 04/08/21 06/03/22 (Tylenol) ipratropium 0.5 mg-albuterol 3 mg 3 ml inhalation QID PRN 05/07/21 06/03/22 (2.5 mg base)/3 mL nebulization wheezing/COPD J43.2 #90 mL soln albuterol sulfate 90 mcg/actuation 2 puff inhalation Q4H PRN ##2 11/18/21 06/03/22 aerosol inhaler (ProAir HFA) lisinopril 10 mg tablet 10 mg PO Q24H #90 tabs 01/19/22 06/03/22 budesonide 160 mcg-glycopyr 9 See Rx Instructions .Route 03/15/22 06/03/22 mcg-formot 4.8 mcg/actuation HFA .COMPLEX #10.7 grams inhaler (Breztri Aerosphere) lidocaine 5 % topical patch 2 patch topical HS #0 ea 05/31/22 06/03/22 meclizine 12.5 mg tablet 12.5 mg PO TID PRN PRN #0 tabs 05/31/22 06/03/22 mirtazapine 15 mg tablet 15 mg PO QHS #30 tabs 06/03/22 06/03/22 Previous Rx's Medication Instructions Recorded ipratropium 0.5 mg-albuterol 3 mg 3 ml inhalation QID PRN 05/07/21 (2.5 mg base)/3 mL nebulization wheezing/COPD J43.2 #90 mL soln albuterol sulfate 90 mcg/actuation 2 puff inhalation Q4H PRN ##2 11/18/21 aerosol inhaler (ProAir HFA) lisinopril 10 mg tablet 10 mg PO Q24H #90 tabs 01/19/22 budesonide 160 mcg-glycopyr 9 See Rx Instructions .Route 03/15/22 mcg-formot 4.8 mcg/actuation HFA .COMPLEX #10.7 grams inhaler (Breztri Aerosphere) lidocaine 5 % topical patch 2 patch topical HS #0 ea 05/31/22 meclizine 12.5 mg tablet 12.5 mg PO TID PRN PRN #0 tabs 05/31/22 mirtazapine 15 mg tablet 15 mg PO QHS #30 tabs 06/03/22 Allergies Allergy/AdvReac Type Severity Reaction Status Date / Time Tetanus Vaccines and Toxoid Allergy Mild LOCAL Verified 06/03/22 11:22 SWELLING General Stated Complaint: RespSymp SHIN: 3 Review of Systems All systems reviewed & are unremarkable except as noted in HPI and below Constitutional Constitutional: Denies fever(s) Respiratory Respiratory: Reports as per HPI PFSH All Active Problems (Updated 06/03/22 @ 17:39 by Candelaria Pereira MD) Carotid artery stenosis (Chronic) right 15-49% in 2019; known left ICA occlusion Essential hypertension (Chronic 06/24/13) Hyperlipidemia (Chronic) Peripheral vascular disease (Chronic) s/p femoral stent [place] [facility] Tubular adenoma (Chronic 03/07/16) Colonoscopy 03/07/16 - 5 yr plan; colonoscopy 02/2022 at [facility]; tubular adenoma and tubulovillous adenomas Sciatica (Acute) COPD (chronic obstructive pulmonary disease) (Chronic) Atherosclerotic cardiovascular disease (Acute) cardiac cath in 2020 with nonobstructive disease Left lower lobe pulmonary nodule (Acute) Left rib fracture (Acute) due to coughing. Generalized weakness (Acute) Dizziness (Acute) History of fracture of rib (Acute) Non-small cell carcinoma of lung (Acute ~05/2019) Biopsied at [facility]; followed by [facility] pulm and [facility] oncology. 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 October 05, 2018 while in-patient. Has not smoked since. 03/20/19 - Admits to 1 cigaret 1-2 per week. 12/19/19 - smoking 3-4 /day -01/2020 - QUIT again 03/16/21 - Reports NONE since 04/2020 Hx of non-ST elevation myocardial infarction (NSTEMI) (2019) in the setting of pneumothorax Pneumothorax on left Initial 01/02/20 LEFT Repeat spont. LEFT pneumothorax - 05/01/20 Repeat spont. pneumothorax (#3) LEFT 01/2021 Polyp of colon Primary malignant neoplasm of cervix s/p hyst Ruptured emphysematous bleb of lung Squamous cell carcinoma of skin UPJ obstruction, acquired chronic bilateral hydronephrosis on CT Surgical History (Updated 06/01/22 @ 08:07 by Candelaria Pereira MD) Colonoscopy - [facility] (03/07/16) Dr Parisi excision CIS R buttock 2008 History of discectomy History of excision of mass History of lung biopsy (~2015) S/P hysterectomy fibroid uterus ovaries remain Status post breast biopsy Status post carpal tunnel release Status post cholecystectomy Family History Mother , 65 Cancer Sister , 65 Breast cancer Father , 75 Heart disease Sister Cancer Sister No problems noted. Brother Bone cancer Lung cancer Daughter No problems noted. Daughter No problems noted. Son No problems noted. Brother No problems noted. Maternal Grandfather No problems noted. Paternal Grandfather No problems noted. Maternal Grandmother No problems noted. Paternal Grandmother No problems noted. Social History Smoking/Tobacco Use Status: Former Tobacco Use tobacco type: cigarettes Quit Date: 10/05/18 Tobacco: How many years used: 57 Second Hand Exposure: Yes Counseling given: patient declined Smoking risk assessment performed?: Yes Alcohol Intake: never Substance use type: does not use Details: Quit smoking while in-patient. Caregiver/Support person: No Household members: spouse Housing: house Communication Needs: None Do you need help understanding health information?: Never Pets and animals: No Sexually active: No Do you think of yourself as: straight/heterosexual Current gender identity: female What is your relationship status?: How often do you talk on the phone with friends or family?: once per week Do you belong to any clubs or organized social groups?: no Panel score (0-1 are the most socially isolated patients): 1 What type of physical activity do you participate in: walking Duration: < 15 minutes/day Frequency: daily Special sonia needs: No Seatbelt use: always 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 Do you feel safe at home: Yes Do you feel safe in your relationship?: Yes Exam Const General: cooperative and no acute distress HENMT Head: atraumatic Mouth: moist mucous membranes Eyes Conjunctivae: normal conjunctivae Sclera: normal sclerae Neck Neck: trachea midline and supple Chest Chest: tenderness (Left lateral chest) Resp Auscultation: clear to auscultation bilaterally, no rales, no rhonchi and no wheezes Cardio Rate: regular rate and not tachycardic Rhythm: regular rhythm GI Palpation: soft, not firm, no guarding, no masses, not rigid and nontender Skin General skin exam: no rashes or lesions noted Neuro General: patient alert, patient awake and tone normal Extrem General: no calf tenderness and no edema Psych Appearance: grossly normal Mental Status: mental status grossly normal Course Vital Signs Vital signs: Vital Signs Temperature 36.6 C 05/19/22 13:16 Pulse 138 H 05/19/22 13:16 Respiratory Rate 18 05/19/22 13:16 Blood Pressure 171/95 H 05/19/22 13:16 Pulse Oximetry 96 05/19/22 13:16 Temperature 36.6 C 05/19/22 13:16 Temperature Source Temporal Artery Scan 05/19/22 13:16 Pulse 79 05/19/22 17:01 Pulse 82 05/19/22 17:10 Respiratory Rate 12 05/19/22 17:10 Respiratory Effort 05/19/22 14:27 Respiratory Depth Shallow 05/19/22 13:33 Blood Pressure 124/65 05/19/22 17:01 Blood Pressure Mean 77 05/19/22 17:01 Blood Pressure Position Sitting 05/19/22 13:16 Pulse Oximetry 98 05/19/22 17:10 Oxygen Delivery Method Room Air 05/19/22 13:16 Oxygen Flow Rate 0 05/19/22 13:16 Pain Level 5 05/19/22 13:16 Comment 05/19/22 13:16 Lab/Test Results Lab/Test Results: Laboratory Tests Range/Units 05/19/22 05/19/22 14:23 14:23 WBC (4.4-10.8) 10^3/uL 5.25 RBC (3.93-5.22) 10^6/uL 5.92 H Hgb (11.2-15.7) g/dL 15.4 Hct (36.0-46.0) % 49.7 H MCV (80-95) fL 84 MCH (27.0-33.0) pg 26.0 L MCHC (32.0-36.0) % 31.0 L RDW (11.7-14.6) % 12.8 Plt Count (130-400) 10^3/uL 143 MPV (8.0-11.0) fL Immature Gran % 0.0 Neutrophils % 71.0 Band Neutrophils % 1 Lymphocytes % 16.0 Atypical Lymphs % 2 Monocytes % 8.0 Eosinophils % 2.0 Basophils % 0.0 Nucleated RBC % (0.0-0.3) % 0.0 Absolute Neutrophils (1.2-6.7) 10^3/uL 3.78 Absolute Lymphocytes (1.2-3.4) 10^3/uL 0.95 L Absolute Monocytes (0.1-0.8) 10^3/uL 0.42 Absolute Eosinophils (0.0-0.7) 10^3/uL 0.11 Absolute Basophils (0.0-0.2) 10^3/uL 0.00 RBC Morphology Normal Sodium (136-145) mmol/L 137 Potassium (3.5-5.1) mmol/L 4.0 Chloride (98-107) mmol/L 98 Carbon Dioxide (21.0-32.0) mmol/L 25.0 Anion Gap (3-11) mmol/L 14.0 H BUN (7-18) mg/dL 20 H Creatinine (0.55-1.02) mg/dL 1.3 H Est GFR (CKD-EPI 2020) (mL/min/1.73m2) 42.88 Glucose (74-106) mg/dL 80 Calcium (8.5-10.1) mg/dL 11.0 H Magnesium (1.8-2.4) mg/dL 2.0 Total Bilirubin (0.2-1.0) mg/dL 1.8 H AST (15-37) U/L 28 ALT (14-59) U/L < 6 L Alkaline Phosphatase (46-116) U/L 177 H Troponin I (<or=60) ng/L < 50 Total Protein (6.4-8.2) g/dL 9.9 H Albumin (3.4-5.0) g/dL 4.5
[2022-05-19] MEDS: Lidocaine 5% Patch 1 PATCH TP (17:47)
== END 2022-05-19 18:11 | disposition home or self-care (01) ==
PROVIDERS: Emergency Provider Student in an Organized Health Care Education/Training Program
DX: S22.32XA Fracture of one rib, left side, initial encounter for closed fracture (principal); X58.XXXA Exposure to other specified factors, initial encounter; R00.0 Tachycardia, unspecified; R06.02 Shortness of breath; R07.9 Chest pain, unspecified
CPT/HCPCS: 36415; 71275; 80053; 93005; 96374; 96375; 99285; 71045; 83735; 84484; 85025; 93010; 99284; J1170; J2405; J2765; J3490

== ENCOUNTER 2022-05-28 11:59 | Observation (INO) | payer MEDICARE, SELFPAY ==
[2022-05-28] VITALS (38 sets, daily range): BP systolic 98–147; BP diastolic 40–86; PULSE 77–136; RESP 12–27; TEMP 36.2–36.5; O2SAT 87–98
--- NOTE | 2022-05-28 11:56 | W.ED.GENAD ---
Discharge Plan Disposition Patient Disposition: [facility] INPATIENT Condition: Stable Discharge Details Clinical Impression: Dyspnea on exertion, Tachycardia, Dizziness, History of fracture of rib Admit Date/Time: 05/28/22 18:38 Admit Provider: John Talbert Attending Provider: John Talbert Primary Care Provider: Candelaria Pereira ED Provider: Idania Peralta Discharge Data Discharge Date/Time-TO BE ENTERED AT DEPARTURE: 05/28/22 19:40 Medical Decision Making 1210 -- 77yo F w/ a h/o multiple?bilateral pneumothoraces in the past, COPD, coronary artery disease, hypertension presents for increasing dyspnea on exertion and dizziness for the past 5 days with a sensation of increased heart rate today. Patient was seen here in the ED on 05/19/[address] chest was noted a healing nondisplaced left fifth rib fracture but no evidence of pulmonary embolism or pneumothorax at that time. She denies any relief with Lidoderm patch or Tylenol at home. Heart rate 120s. Oxygen saturation 93 to 96% on room air. She has diminished breath sounds throughout. She appears to be breathing comfortably and in no acute distress. She does appear to have reproducible left-sided rib pain with movement on the bed. She also has tenderness palpation to her left lateral chest but no evidence of trauma. No focal deficits. Consider pneumonia, PE or pneumothorax. Also consider COVID. Will obtain screening labs, COVID swab, portable chest x-ray to rule out pneumothorax and then proceed with CT chest. We will give a dose of IV Tylenol and IV Dilaudid for pain and fluids for hydration. 1400 -- labs and imaging reviewed. Normal white blood cell count. Hemoglobin at 16.6 which may account for dehydration. Initial potassium 5.3 but appeared hemolyzed so was redrawn and within normal limits. Initial calcium mildly elevated at 10.9, was low on redraw at 7.8. Her glucose was also 83 initially and on redraw 69. Troponin negative. COVID-negative. Chest x-ray and CT chest negative for acute findings of pneumonia, pulmonary embolism or pneumothorax. Patient reassessed and heart rate significantly improved to 80s. Patient states she still feels weak and dizzy with ambulating to the bathroom. Will obtain a urinalysis, give additional fluids, Phenergan for some nausea she complains of and then feed the patient and reattempt to ambulate. 1600 -- Dr. Rizvi called to state there was a discrepancy with the virtual radiology report --there is a partially cavitated 8 x 8 mm nodule left lower lobe not previously present in November 2020 but slightly increased in size from March 2022 which is suspicious for possible malignancy and another somewhat suspicious looking but relatively stable pleural-based infiltrate in the right upper lobe. This was discussed with patient and she states she has been in discussion with her primary care doctor for further evaluation of this. There are also healing left fifth and eighth rib fractures. 1744 --attempted to ambulate patient but unsuccessful. She became extremely dizzy with shortness of breath and heart rate increased from 80s to 120s. Patient states she cannot go home. Will admit patient for continued monitoring, IV fluid hydration and PT. 1829 --Case discussed with Dr. Thompson who accepts patient for admission. Medical Records Medical records reviewed: Yes I reviewed the patient's medical records. Imaging Data Radiologic Study: Radiologist's impression: XR Chest Exam date and time: 05/28/2022 12:55 PM Age: 77 years old Clinical indication: Shortness of breath TECHNIQUE: Imaging protocol: Radiologic exam of the chest. Views: 1 view. COMPARISON: CR XR PORTABLE CHEST AP 05/19/2022 1:43 PM FINDINGS: Lungs: Bilateral hyperinflation is present. No focal pneumonia or pneumothorax. Pleural spaces: There are no pleural effusions present. Heart/Mediastinum: The heart is not enlarged. Vasculature: The vasculature demonstrates diffuse moderate atherosclerotic calcification. Bones/joints: The thoracic spine demonstrates mild degenerative changes at multiple levels. Soft tissues: Nodular density projects over the left lung base and may be related to the nipple shadow. Follow-up study with nipple markers be of further benefit. IMPRESSION: 1. Bilateral hyperinflation is present. 2. Nodular density projects over the left lung base and may be related to the nipple shadow. Follow-up study with nipple markers be of further benefit. 3. No focal pneumonia or pneumothorax. CTA Chest With Contrast Exam date and time: 05/28/2022 1:30 PM Age: 77 years old Clinical indication: Other: SOB, tachycardic, R/O pe, pneumonia TECHNIQUE: Imaging protocol: Computed tomographic angiography of the chest with contrast. 3D rendering (Not supervised by radiologist): MIP and/or 3D reconstructed images were created by the technologist. Radiation optimization: All CT scans at this facility use at least one of these dose optimization techniques: automated exposure control; mA and/or kV adjustment per patient size (includes targeted exams where dose is matched to clinical indication); or iterative reconstruction. Contrast material: OMNIPAQUE 350; Contrast volume: 100 ml; Contrast route: INTRAVENOUS (IV);? COMPARISON: CT CHEST PE CTA 05/19/2022 3:31 PM FINDINGS: Pulmonary arteries: No evidence of pulmonary embolism. Aorta: No evidence of aortic dissection. Lungs: No focal pneumonia or pneumothorax. Scarring is noted in the right upper lobe, similar to the prior studies. Emphysematous changes noted bilaterally. Pleural spaces: There are no pleural effusions present. Apical pleural thickening noted on the right. Heart: There is mild atherosclerotic calcification of the coronary arteries. Lymph nodes: There is no evidence of mediastinal or hilar lymphadenopathy. Gallbladder and bile ducts: There has been a cholecystectomy. Bones/joints: The thoracic spine demonstrates mild degenerative changes at multiple levels. Healing fracture of the left 5th rib. Soft tissues: Unremarkable. Other findings: The vasculature demonstrates diffuse mild atherosclerotic calcification. IMPRESSION: 1. No evidence of pulmonary embolism. 2. No evidence of aortic dissection. 3. No focal pneumonia or pneumothorax. 4. Emphysematous changes noted bilaterally. Lab Data Lab results reviewed: Yes I reviewed the patient's lab results. Labs: Laboratory Tests Range/Units 05/28/22 05/28/22 05/28/22 12:45 12:55 12:55 WBC (4.4-10.8) 10^3/uL 9.29 RBC (3.93-5.22) 10^6/uL 6.37 H Hgb (11.2-15.7) g/dL 16.6 H Hct (36.0-46.0) % 51.4 H MCV (80-95) fL 81 MCH (27.0-33.0) pg 26.1 L MCHC (32.0-36.0) % 32.3 RDW (11.7-14.6) % 13.2 Plt Count (130-400) 10^3/uL 117 L MPV (8.0-11.0) fL Immature Gran % 2.5 Neutrophils % 73.3 Lymphocytes % 8.2 Monocytes % 13.7 Eosinophils % 0.5 Basophils % 1.8 Nucleated RBC % (0.0-0.3) % 0.0 Absolute Neutrophils (1.2-6.7) 10^3/uL 6.81 H Absolute Lymphocytes (1.2-3.4) 10^3/uL 0.76 L Absolute Monocytes (0.1-0.8) 10^3/uL 1.27 H Absolute Eosinophils (0.0-0.7) 10^3/uL 0.05 Absolute Basophils (0.0-0.2) 10^3/uL 0.17 RBC Morphology Normal Sodium (136-145) mmol/L 137 Potassium (3.5-5.1) mmol/L 5.3 H Chloride (98-107) mmol/L 97 L Carbon Dioxide (21.0-32.0) mmol/L 22.8 Anion Gap (3-11) mmol/L 17.2 H BUN (7-18) mg/dL 51 H Creatinine (0.55-1.02) mg/dL 1.3 H Est GFR (CKD-EPI 2020) (mL/min/1.73m2) 42.88 Glucose (74-106) mg/dL 83 Calcium (8.5-10.1) mg/dL 10.9 H Magnesium (1.8-2.4) mg/dL 2.0 Total Bilirubin (0.2-1.0) mg/dL 1.2 H AST (15-37) U/L 44 H ALT (14-59) U/L 6 L Alkaline Phosphatase (46-116) U/L 218 H Troponin I (<or=60) ng/L < 50 Total Protein (6.4-8.2) g/dL 9.4 H Albumin (3.4-5.0) g/dL 4.1 Urine Color (Yellow) Urine Clarity (Clear) Urine pH (5-8) Ur Specific [place] (1.005-1.025) Urine Protein (Negative) mg/dL Urine Ketones (Negative) mg/dL Urine Blood (Negative) Urine Nitrite (Negative) Urine Bilirubin (Negative) Urine Urobilinogen (Up TO 0.2) EU/dL Ur Leukocyte Esterase (Negative) Urine RBC (0-2) HPF Urine WBC (0-5) HPF Ur Epithelial Cells (Negative) HPF Urine Crystals (Negative) HPF Urine Bacteria (Negative) HPF Urine Casts (Negative) LPF Urine Mucus (Negative) Ur Culture Indicated? Urine Glucose (Negative) mg/dL COVID-19 Source Nasal/Nares SARS-CoV-2 (PCR) (Negative) Negative Range/Units 05/28/22 05/28/22 13:56 14:45 WBC (4.4-10.8) 10^3/uL RBC (3.93-5.22) 10^6/uL Hgb (11.2-15.7) g/dL Hct (36.0-46.0) % MCV (80-95) fL MCH (27.0-33.0) pg MCHC (32.0-36.0) % RDW (11.7-14.6) % Plt Count (130-400) 10^3/uL MPV (8.0-11.0) fL Immature Gran % Neutrophils % Lymphocytes % Monocytes % Eosinophils % Basophils % Nucleated RBC % (0.0-0.3) % Absolute Neutrophils (1.2-6.7) 10^3/uL Absolute Lymphocytes (1.2-3.4) 10^3/uL Absolute Monocytes (0.1-0.8) 10^3/uL Absolute Eosinophils (0.0-0.7) 10^3/uL Absolute Basophils (0.0-0.2) 10^3/uL RBC Morphology Sodium (136-145) mmol/L 137 Potassium (3.5-5.1) mmol/L 4.7 Chloride (98-107) mmol/L 104 Carbon Dioxide (21.0-32.0) mmol/L 21.3 Anion Gap (3-11) mmol/L 11.7 H BUN (7-18) mg/dL 45 H Creatinine (0.55-1.02) mg/dL 0.9 Est GFR (CKD-EPI 2020) (mL/min/1.73m2) 66.67 Glucose (74-106) mg/dL 69 L Calcium (8.5-10.1) mg/dL 7.8 L Magnesium (1.8-2.4) mg/dL Total Bilirubin (0.2-1.0) mg/dL AST (15-37) U/L ALT (14-59) U/L Alkaline Phosphatase (46-116) U/L Troponin I (<or=60) ng/L Total Protein (6.4-8.2) g/dL Albumin (3.4-5.0) g/dL Urine Color (Yellow) Yellow Urine Clarity (Clear) Sl Cloudy Urine pH (5-8) 5.5 Ur Specific [place] (1.005-1.025) 1.025 Urine Protein (Negative) mg/dL 30 H Urine Ketones (Negative) mg/dL 15 H Urine Blood (Negative) Negative Urine Nitrite (Negative) Negative Urine Bilirubin (Negative) Small H Urine Urobilinogen (Up TO 0.2) EU/dL 0.2 Ur Leukocyte Esterase (Negative) Negative Urine RBC (0-2) HPF 0-2 Urine WBC (0-5) HPF 0-2 Ur Epithelial Cells (Negative) HPF Few Urine Crystals (Negative) HPF Few Amorphous Urine Bacteria (Negative) HPF Rare Urine Casts (Negative) LPF 10-20 Hyaline Urine Mucus (Negative) Moderate Ur Culture Indicated? No Urine Glucose (Negative) mg/dL Negative COVID-19 Source SARS-CoV-2 (PCR) (Negative) ECG Data Attestation: I personally reviewed and interpreted this ECG (s) as follows: Interpretation: Rate of 86, sinus, normal axis, slight peaked T waves in anterior lateral leads compared to previous EKG but no signs of ischemia and no STEMI. HPI General Mode of arrival: EMS. Date/Time Provider Initiated Documentation: 05/28/22 12:03. Limitations to Documentation: no limitations. Information obtained by: patient. HPI Narrative: Pt is a 77yo F w/ a h/o?bilateral pneumothoraces in the past, COPD, coronary artery disease, hypertension presents for increasing shortness of breath with exertion over the past 5 days. Patient was seen here last week and diagnosed with a left-sided rib fracture which she states she thinks is due to coughing as she denies any injury or fall. She states she has had no relief with the Lidoderm patch or Tylenol she has been taking. She states she has not been using the incentive spirometer. She also states every time she gets up and walks around she becomes more short of breath and dizzy and off balance. She states she has had a cough but denies any sputum production. She also states she has had a low-grade fever of 99 and a loss of sense of smell and taste. She has not taken any medication for pain today. She also states she noted today when she awoke she felt that her heart rate was beating fast. She also states she has not been eating or drinking much for the past 5 to 6 days. Related Data Home Medications Medication Instructions Recorded Confirmed inhalational spacing device (Space ##1 06/09/16 05/19/22 Chamber Plus) aspirin 81 mg tablet,delayed 81 mg PO DAILY #30 tabs 11/11/19 05/28/22 release atorvastatin 80 mg tablet 80 mg PO QPM #90 tabs 12/17/20 05/28/22 acetaminophen 325 mg tablet 325 mg PO DAILY PRN 04/08/21 05/28/22 (Tylenol) ipratropium 0.5 mg-albuterol 3 mg 3 ml inhalation QID PRN 05/07/21 05/28/22 (2.5 mg base)/3 mL nebulization wheezing/COPD J43.2 #90 mL soln metoprolol tartrate 50 mg tablet 50 mg PO DAILY #90 tabs 08/17/21 05/28/22 albuterol sulfate 90 mcg/actuation 2 puff inhalation Q4H PRN ##2 11/18/21 05/28/22 aerosol inhaler (ProAir HFA) lisinopril 10 mg tablet 10 mg PO Q24H #90 tabs 01/19/22 05/28/22 budesonide 160 mcg-glycopyr 9 See Rx Instructions .Route 03/15/22 05/28/22 mcg-formot 4.8 mcg/actuation HFA .COMPLEX #10.7 grams inhaler (Breztri Aerosphere) Previous Rx's Medication Instructions Recorded aspirin 81 mg tablet,delayed 81 mg PO DAILY #30 tabs 11/11/19 release atorvastatin 80 mg tablet 80 mg PO QPM #90 tabs 12/17/20 ipratropium 0.5 mg-albuterol 3 mg 3 ml inhalation QID PRN 05/07/21 (2.5 mg base)/3 mL nebulization wheezing/COPD J43.2 #90 mL soln metoprolol tartrate 50 mg tablet 50 mg PO DAILY #90 tabs 08/17/21 albuterol sulfate 90 mcg/actuation 2 puff inhalation Q4H PRN ##2 11/18/21 aerosol inhaler (ProAir HFA) lisinopril 10 mg tablet 10 mg PO Q24H #90 tabs 01/19/22 budesonide 160 mcg-glycopyr 9 See Rx Instructions .Route 03/15/22 mcg-formot 4.8 mcg/actuation HFA .COMPLEX #10.7 grams inhaler (Breztri INDOMphere) Allergies Allergy/AdvReac Type Severity Reaction Status Date / Time Tetanus Vaccines and Toxoid Allergy Mild LOCAL Verified 05/19/22 14:02 SWELLING General Stated Complaint: SOB SHIN: 3 Review of Systems All systems reviewed & are unremarkable except as noted in HPI and below Constitutional Constitutional: Reports as per HPI, Denies chills and Denies fever(s) Eyes Eyes: Denies blurry vision ENT Ears, Nose, Mouth, and Throat: Denies dizziness, Denies sore throat and Denies throat swelling Cardiovascular Cardiovascular: Denies chest pain and Reports dyspnea Respiratory Respiratory: Reports cough and Reports dyspnea Gastrointestinal Gastrointestinal: Denies abdominal pain, Denies diarrhea and Denies vomiting Genitourinary Genitourinary: Denies hematuria and Denies dysuria Musculoskeletal Musculoskeletal: Denies back pain and Denies numbness Integumentary/Breasts Skin/Breast: Denies lesions and Denies rash Neurologic Neurologic: Denies dizziness, Denies localized weakness and Denies numbness Allergic/Immunologic Allergic/Immunologic: Denies throat swelling PFSH All Active Problems (Updated 05/30/22 @ 03:02 by Idania Peralta DO) Dyspnea on exertion (Acute) Tachycardia (Acute) Dizziness (Acute) History of fracture of rib (Acute) Generalized weakness (Acute) Dehydration (Acute) Left rib fracture (Acute) Occipital pain (Acute) Shoulder pain, left (Acute) Abnormal PET scan of colon (Acute) Atypical chest pain (Acute) Shortness of breath (Acute) Left lower lobe pulmonary nodule (Acute) Recurrent pneumothorax (Acute) Lung blebs (Acute) Muscle spasms of neck (Acute) COPD exacerbation (Acute) Atherosclerotic cardiovascular disease (Acute) Non-STEMI (non-ST elevated myocardial infarction) (Acute) Pneumothorax on left (Acute) Initial 01/02/20 LEFT Repeat spont. LEFT pneumothorax - 05/01/20 Repeat spont. pneumothorax (#3) LEFT 01/2021 COPD (chronic obstructive pulmonary disease) (Chronic) COPD with acute exacerbation (Acute) Smoker (Chronic) Quit approx. October 05, 2018 while in-patient. Has not smoked since. 03/20/19 - Admits to 1 cigaret 1-2 per week. 12/19/19 - smoking 3-4 /day -01/2020 - QUIT again 03/16/21 - Reports NONE since 04/2020 Tubular adenoma (Chronic 03/07/16) Colonoscopy 03/07/16 - 5 yr plan Nodule of right lung (Chronic 07/11/16) 2017 - patient reports that this was biopsied at [facility] in [place], and has been followed with PET/CT and was told that it is not cancerous 2019 - R upper lobe malignant neoplasm per [facility], completed radiation 06/2019. Following Lung cancer (Chronic) b/l. Tx'ed w/XRT only in 2019 Peripheral vascular disease (Chronic) Abnormal weight loss (Chronic 04/18/12) Ruptured emphysematous bleb of lung (Acute) Abnormal mammogram of left breast (Acute) History of discectomy (Acute) History of excision of mass (Acute) Primary malignant neoplasm of cervix (Acute) Sciatica (Acute) Squamous cell carcinoma (Acute) Uvulitis (Acute) Impaired fasting glucose (Chronic) Hyperlipidemia (Chronic) Essential hypertension (Chronic 06/24/13) Diverticulosis of colon without diverticulitis (Chronic) Hypoxia (Acute) Carpal tunnel syndrome (Chronic) right Carotid artery stenosis (Chronic) right 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; no residual UPJ obstruction, acquired (Chronic) Medical History Fatigue (06/02/16) Muscle spasms of neck (01/29/18) Nasal bleeding Oxygen dependent Pharyngitis Polyp of colon PVD (peripheral vascular disease) Surgical History Biopsy of breast R cyst aspiration many years ago Cholecystectomy (~01/2009) Colonoscopy - MAC (03/07/16) Dr Parisi excision CIS R buttock 2008 History of lung biopsy (~2015) Hysterectomy, Laproscopic (~1974) fibroid uterus ovaries remain Open Carpal Tunnel release left Status post breast biopsy Status post carpal tunnel release Status post cholecystectomy Surgery EXC/DEST INTVRT DISC NOS, 1992 C6-7 Family History Mother , 65 Cancer Sister , 65 Breast cancer Father , 75 Heart disease Sister Cancer Sister No problems noted. Brother Bone cancer Lung cancer Daughter No problems noted. Daughter No problems noted. Son No problems noted. Brother No problems noted. Maternal Grandfather No problems noted. Paternal Grandfather No problems noted. Maternal Grandmother No problems noted. Paternal Grandmother No problems noted. Social History Smoking/Tobacco Use Status: Former Tobacco Use tobacco type: cigarettes Quit Date: 10/05/18 Tobacco: How many years used: 55 Second Hand Exposure: Yes Counseling given: patient declined Smoking risk assessment performed?: Yes Alcohol Intake: never Substance use type: does not use Details: Quit smoking while in-patient. Caregiver/Support person: No Household members: spouse Housing: house Communication Needs: None Do you need help understanding health information?: Never Pets and animals: No Sexually active: No Do you think of yourself as: straight/heterosexual Current gender identity: female What is your relationship status?: How often do you talk on the phone with friends or family?: once per week Do you belong to any clubs or organized social groups?: no Panel score (0-1 are the most socially isolated patients): 1 What type of physical activity do you participate in: walking Duration: < 15 minutes/day Frequency: daily Special sonia needs: No Seatbelt use: always Drive intox or ride w/intox driver education road instructor: No Do you feel safe at home: Yes Do you feel safe in your relationship?: Yes Exam Const General: cooperative, comfortable and no acute distress Orientation: alert, awake and oriented x3 HENMT Head: normal to inspection Ears: hearing grossly normal bilaterally and external ears normal Face and sinus: normal facial exam Mouth: mucous membranes dry Throat: posterior oropharynx normal Eyes General: appearance normal, both eyes and all related structures Pupils: PERRL EOM: EOM intact bilaterally Neck Neck: normal visual inspection and No submandibular swelling Lymphatic: no lymphadenopathy noted Chest Chest: normal inspection of the chest and no tenderness Chest/axillae images: 1. Tenderness to palpation. No evidence of trauma. Resp Effort & Inspection: normal respiratory effort and able to speak in complete sentences Auscultation: diminished lung sounds bilaterally throughout Cardio Rate: regular rate Rhythm: regular rhythm GI Inspection: normal to inspection Palpation: soft, not firm, not rigid and nontender Auscultation: normal bowel sounds Back/Spine/Pelvis Thoracic/Lumbar Spine: thoracic and lumbar spine normal to inspection Pelvis: no pain with anterior-posterior compression Skin General skin exam: no rashes or lesions noted Neuro General: patient alert, patient awake, patient oriented x3, moves all extremities and no meningeal signs Cognition: normal cognition Speech: speech normal Motor: muscle tone normal throughout Sensory Exam: no sensory deficits noted Extrem General: normal to inspection, full ROM, capillary refill normal, no calf tenderness bilaterally and no edema Psych Appearance: grossly normal Mental Status: mental status grossly normal Speech and Movement: speech and movement normal Affect: normal affect
--- NOTE | 2022-05-28 12:15 | RT.EKG_ITS ---
APPROVED REPORT Exam: Resting ECG Reason for Exam: sob Patient Location: E HR:86 bpm ECG Measurements Heart Rate 86 AXIS UT 117 P 83 QRSd 63 QRS 86 QT 364 T 69 QTc 435 Conclusion Sinus rhythm...normal P axis, V-rate 60- 99 Sinus. Normal axis. Slightly peaked T waves anterolateral leads compared to previous EKG. No STEMI. I have reviewed and interpreted ECG and agree with software generated interpretation.
--- NOTE | 2022-05-28 12:15 | DI.RAD_ITS ---
Exam(s) XR PORTABLE CHEST AP EXAM: XR PORTABLE CHEST AP CLINICAL HISTORY: sob,r/o pneumothorax/pneumonia. TECHNIQUE: 2D digital imaging was performed. COMPARISON: CR XR PORTABLE CHEST AP from 05/19/2022 FINDINGS: Single AP portable view. Heart size is upper normal. The mediastinum is not widened. Lungs are hyperinflated but clear. No infiltrates nor obvious pleural effusions. Nodular density is noted in the lower left lung which is possibly just a nipple shadow. IMPRESSION: No acute pulmonary infiltrates nor pleural effusions on this single AP portable view of the chest. Finding in left lung base as above. Recommend repeating the study with metallic nipple markers in pl luli. DATA REPOSITORY: RADIATION DOSE DELIVERED:
--- NOTE | 2022-05-28 12:15 | DI.CT_ITS ---
Exam(s) CT CHEST PE CTA EXAM: CT CHEST PE CTA CLINICAL HISTORY: sob, tachycardic, r/o pe, pneumonia. TECHNIQUE: Imaging Protocol: CT angiography of the chest was performed using pulmonary embolus mohit col. Multi planar reconstructions were performed. CONTRAST MATERIAL: Intravenous: Omnipaque 350 Contrast volume: 100 cc COMPARISON: CT CT CHEST W from 12/07/[address] CHEST WO from 04/07/[address] CHEST PE CTA from 05/19/2022 FINDINGS: CHEST: PULMONARY ARTERIES: There are no intraluminal filling defects to suggest acute pulmonary emboli. LUNGS: There is a partially cavitated 8 x 8 millimeter nodule in the left lower lobe, not previously present on 12/07/2020 but slightly increased in size from 04/07/2022. This is suspicious for possibl e malignancy. There is relatively stable pleural based infiltrate in the posterior aspect of the rig ht upper lobe. No new right lung findings. No pleural effusions on either side. MEDIASTINUM: Mild adenopathy is again noted in the left hilum. No adenopathy in the right hilum. No supraclavicular adenopathy. There is no axillary adenopathy. CARDIAC: Heart size is upper normal. There is no pericardial effusion.Caliber of the thoracic aorta is within normal limits. There is no significant shift of the interventricular septum. PARTIALLY VISUALIZED UPPERMOST ABDOMEN: No obvious significant findings. OSSEOUS: No significant osseous lesions.Partially healed left rib fracture of the left 8th rib noted. No acute rib fractures evident.. IMPRESSION: 1. No evidence of acute pulmonary emboli. No evidence of pulmonary infarction.No pleural effusions. 2. However, there is an increasing size nodule in the left lower lobe which is suspicious for possibl e malignancy. This presently measures approximately 8 x 9 millimeters and with central cavitation. Also possible other diagnosis considerations for this nodule, including lung abscess. There is mild adenopathy in the left hilum. 3. Somewhat suspicious looking but relatively stable pleural based infiltrate in the right upper lobe . No adenopathy in the right hilum. Left 5th and 8th rib fractures, partially healed. First read by [facility]. Final report called by myself to ER physician 05/28/2022 3:40 p.m.. RADIATION DOSE DELIVERED: 175.41mGy.cm Total DLP DATA REPOSITORY: All CT scans at this facility are submitted to the National Radiology Data Registry (NRDR) Dose Index Registry (DIR) with the [employer] (A[employer]). RADIATION OPTIMIZATION: All CT scans at this facility use at least one of these dose optimization te chniques: automated exposure control; mA and/or kV adjustment per patient size (includes targeted exa ms where dose is matched to clinical indication); or iterative reconstruction.
[2022-05-28 12:57] LABS: Source Nasal/Nares
[2022-05-28] MEDS: Normal Saline 250 ML 500 ML IV ×2 (13:08→14:53)
[2022-05-28] MEDS: ACETAMINOPHEN 1,000 MG/100 ML BTL 400 MG IVPB (13:08)
[2022-05-28] MEDS: HYDROmorphone 2 MG/ML SYR 0.5 MG IVP (13:08)
[2022-05-28 13:10] LABS: Abs Immature Grans 0.23 10^3/uL (0.0-0.06); Absolute Basophil Count 0.17 10^3/uL (0.0-0.2); Absolute Eosinophil Count 0.05 10^3/uL (0.0-0.7); Absolute Lymphocyte Count 0.76 10^3/uL (1.2-3.4); Absolute Monocyte Count 1.27 10^3/uL (0.1-0.8); Absolute Neutrophil Count 6.81 10^3/uL (1.2-6.7); Basophils % 1.8; Eosinophils % 0.5; HCT 51.4 % (36.0-46.0); HGB 16.6 g/dL (11.2-15.7); Immature Grans % 2.5; Lymphocytes % 8.2; MCH 26.1 pg (27.0-33.0); MCHC 32.3 % (32.0-36.0); MCV 81 fL (80-95); Monocytes % 13.7; Neutrophils % 73.3; RBC 6.37 10^6/uL (3.93-5.22); RDW 13.2 % (11.7-14.6); RDW-SD 38.5 fL; WBC 9.29 10^3/uL (4.4-10.8)
[2022-05-28 13:24] LABS: ALT 6 U/L (14-59); AST 44 U/L (15-37); Albumin 4.1 g/dL (3.4-5.0); Alkaline Phosphatase 218 U/L (46-116); Anion Gap 17.2 mmol/L (3-11); BUN 51 mg/dL (7-18); Bilirubin, Total 1.2 mg/dL (0.2-1.0); CO2 22.8 mmol/L (21.0-32.0); CREATININE 1.3 mg/dL (0.55-1.02); Calcium 10.9 mg/dL (8.5-10.1); Chloride 97 mmol/L (98-107); Estimated GFR 42.88 (mL/min/1.73m2); Glucose 83 mg/dL (74-106); Sodium 137 mmol/L (136-145); Total Protein 9.4 g/dL (6.4-8.2); Troponin I < 50 ng/L (<or=60)
[2022-05-28 13:25] LABS: Potassium 5.3 mmol/L (3.5-5.1)
[2022-05-28 13:28] LABS: COVID-19 PCR Negative (Negative)
[2022-05-28] MEDS: Ondansetron 4 MG/2 ML VIAL IVP (13:29)
[2022-05-28] MEDS: Ondansetron 4 MG/2 ML VIAL (13:29)
[2022-05-28] MEDS: Normal Saline Flush 10 ML SYR IVP (13:35)
[2022-05-28] MEDS: Omnipaque 350 MG/ML 100 ML BTL IJ (13:36)
--- NOTE | 2022-05-28 13:39 | DI.VRAD_ITS ---
PROCEDURE INFORMATION: Exam: XR Chest Exam date and time: 05/28/2022 12:55 PM Age: 77 years old Clinical indication: Shortness of breath TECHNIQUE: Imaging protocol: Radiologic exam of the chest. Views: 1 view. COMPARISON: CR XR PORTABLE CHEST AP 05/19/2022 1:43 PM FINDINGS: Lungs: Bilateral hyperinflation is present. No focal pneumonia or pneumothorax. Pleural spaces: There are no pleural effusions present. Heart/Mediastinum: The heart is not enlarged. Vasculature: The vasculature demonstrates diffuse moderate atherosclerotic calcification. Bones/joints: The thoracic spine demonstrates mild degenerative changes at multiple levels. Soft tissues: Nodular density projects over the left lung base and may be related to the nipple shadow. Follow-up study with nipple markers be of further benefit. IMPRESSION: 1. Bilateral hyperinflation is present. 2. Nodular density projects over the left lung base and may be related to the nipple shadow. Follow-up study with nipple markers be of further benefit. 3. No focal pneumonia or pneumothorax. Dictated and Authenticated by: Esa Dixon MD. Ordering:ARUN Emerson MD
[2022-05-28 13:42] LABS: Diff Comment PLT Morph Reviewed; Platelet Count 117 10^3/uL (130-400); RBC Morphology Normal
--- NOTE | 2022-05-28 13:58 | DI.VRAD_ITS ---
PROCEDURE INFORMATION: Exam: CTA Chest With Contrast Exam date and time: 05/28/2022 1:30 PM Age: 77 years old Clinical indication: Other: SOB, tachycardic, R/O pe, pneumonia TECHNIQUE: Imaging protocol: Computed tomographic angiography of the chest with contrast. 3D rendering (Not supervised by radiologist): MIP and/or 3D reconstructed images were created by the technologist. Radiation optimization: All CT scans at this facility use at least one of these dose optimization techniques: automated exposure control; mA and/or kV adjustment per patient size (includes targeted exams where dose is matched to clinical indication); or iterative reconstruction. Contrast material: OMNIPAQUE 350; Contrast volume: 100 ml; Contrast route: INTRAVENOUS (IV); COMPARISON: CT CHEST PE CTA 05/19/2022 3:31 PM FINDINGS: Pulmonary arteries: No evidence of pulmonary embolism. Aorta: No evidence of aortic dissection. Lungs: No focal pneumonia or pneumothorax. Scarring is noted in the right upper lobe, similar to the prior studies. Emphysematous changes noted bilaterally. Pleural spaces: There are no pleural effusions present. Apical pleural thickening noted on the right. Heart: There is mild atherosclerotic calcification of the coronary arteries. Lymph nodes: There is no evidence of mediastinal or hilar lymphadenopathy. Gallbladder and bile ducts: There has been a cholecystectomy. Bones/joints: The thoracic spine demonstrates mild degenerative changes at multiple levels. Healing fracture of the left 5th rib. Soft tissues: Unremarkable. Other findings: The vasculature demonstrates diffuse mild atherosclerotic calcification. IMPRESSION: 1. No evidence of pulmonary embolism. 2. No evidence of aortic dissection. 3. No focal pneumonia or pneumothorax. 4. Emphysematous changes noted bilaterally. Dictated and Authenticated by: Esa Dixon MD. Ordering:ARUN Emerson MD
[2022-05-28 14:30] LABS: Anion Gap 11.7 mmol/L (3-11); BUN 45 mg/dL (7-18); CO2 21.3 mmol/L (21.0-32.0); CREATININE 0.9 mg/dL (0.55-1.02); Calcium 7.8 mg/dL (8.5-10.1); Chloride 104 mmol/L (98-107); Estimated GFR 66.67 (mL/min/1.73m2); Glucose 69 mg/dL (74-106); Potassium 4.7 mmol/L (3.5-5.1); Sodium 137 mmol/L (136-145)
[2022-05-28] MEDS: Ketorolac 30 MG/ML VIAL IVP (14:54)
[2022-05-28 15:05] LABS: Bilirubin Small (Negative); Blood Negative (Negative); Clarity Sl Cloudy (Clear); Glucose Negative (Negative); Ketones 15 mg/dL (Negative); Leukocyte Esterase Negative (Negative); Nitrite Negative (Negative); Specific Gravity 1.025 (1.005-1.025); Urobilinogen 0.2 EU/dL (Up TO 0.2); pH 5.5 (5-8)
[2022-05-28 15:16] LABS: Bacteria Rare HPF (Negative); C & S Indicated? No; Casts 10-20 Hyaline LPF (Negative); Crystals Few Amorphous HPF (Negative); Epithelial Cells Few HPF (Negative); Mucus Moderate (Negative); RBC 0-2 HPF (0-2); WBC 0-2 HPF (0-5)
[2022-05-28] MEDS: Normal Saline 1,000 ML 125 ML IV (18:14)
[2022-05-28 18:31] LABS: Troponin I < 50 ng/L (<or=60)
[2022-05-28] MEDS: Atorvastatin 40 MG TAB 80 MG PO (21:24)
[2022-05-28] MEDS: Enoxaparin 40 MG/0.4 ML SYR SC (21:24)
[2022-05-28] MEDS: Lactated Ringers 1,000 ML 100 ML IV (21:24)
[2022-05-28] MEDS: Docusate Sodium 100 MG CAP PO (21:25)
--- NOTE | 2022-05-28 21:38 | HPE_ITS ---
Date of service: 05/28/22 Time of Service: 21:38 Assessment and Plan Assessment and plan (1) Left rib fracture: Status: Acute Assessment and plan: Lidoderm patches, tramadol, Toradol, anesthesia consultation for nerve block, physical therapy consultation to assess fall risk and to promote mobility and work on her generalized weakness. Professional time spent interviewing and examining patient, discussion of goals of care with hospital team (care management, nursing and consulting professionals) was 45 minutes. (2) COPD (chronic obstructive pulmonary disease): Status: Chronic Assessment and plan: Continue her home inhaled LABA and LAMA, give as needed DuoNeb treatments as needed. No evidence for acute exacerbation. No need for corticosteroids at this point unless she was for pain control. Qualifiers: COPD type: emphysema Emphysema type: centrilobular Qualified Code(s): J43.2 - Centrilobular emphysema (3) Dehydration: Status: Acute Assessment and plan: Mild dehydration due to poor oral intake. We will give gentle hydration ov ernight with lactated Ringer's and give as needed antiemetics. (4) Generalized weakness: Status: Acute Assessment and plan: Consult physical therapy in the morning to assess fall safety risk as well as to promote exercise for reconditioning and improve her amatory status as well as to promote her ADL performance. History of Present Illness Narrative: 77yo F w/ a h/o multiple?bilateral pneumothoraces in the past, COPD, coronary artery disease, hypertension and NSCLC (adenocarcionoma, RUL) (prior radiation treatment) and more recently found to have persistent FDG avid nodule in RUL but also AMRIK (she is followed both by Dr. Bhandari in pulmonary clinic and by [facility] in [facility]. She presents for increasing dyspnea on exertion and dizziness for the past 5 days with a sensation of increased heart rate today. she has been nauseated d/t pain in her left side. She was seen in the ER on 05/[address] that showed left sided 5th and 8th ribs incompletely healed fractures. She was prescribed lidocaine patches and ibuprofen. She says that the pain has been keeping her awake at night and it hurts worse w/ coughing and her appetite has been off. The pain has made her so nauseated that she can not eat. On evaluation in the ER she was noted to be tachypneic and tachycardic w/ hr 128 bmp and RR 20, no fever and no hypotension. Labs revealed that she is moderately dehydrated w/ BUN 45 but normal creatinine 0.9 (this was after redraw d/t hemolyzed specimen in which first BUN and creatinine were 51 and 1.3 and K was 5.3). Patient was given a normal saline bolus of 250 mL then put on NS @ 125 mL/hr. The ED attempted to walk her but she was too weak, even after they fed her while in the ER. She is now admitted for pain control and rehydration. She is admitted on observation status. We will get anaesthesia consult in the morning for nerve block to control her rib fracture pain. Review of Systems All systems reviewed & are unremarkable except as noted in HPI and below Cardiovascular Cardiovascular: Reports chest pain at rest (left sided only w/ coughing or deep breathing) and Reports dyspnea Respiratory Respiratory: Denies change in phlegm color, Denies chest congestion, Reports cough, Denies hemoptysis, Denies excessive phlegm production, Reports pain on inspiration, Reports pain with cough, Reports dyspnea and Denies wheezing Gastrointestinal Gastrointestinal: Denies abdominal pain, Reports nausea and Denies vomiting Genitourinary Genitourinary: Reports system reviewed and no additional complaints, except as documented Musculoskeletal Musculoskeletal: Reports system reviewed and no additional complaints, except as documented Integumentary/Breasts Skin/Breast: Reports system reviewed and no additional complaints, except as documented Neurologic Neurologic: Reports system reviewed and no additional complaints, except as documented Endocrine Endocrine: Reports system reviewed and no additional complaints, except as documented Hematologic/Lymphatic Hematologic/Lymphatic: Reports system reviewed and no additional complaints, except as documented Allergic/Immunologic Allergic/Immunologic: Denies wheezing PFSH All Active Problems (Updated 05/28/22 @ 22:36 by John Talbert MD) Generalized weakness (Acute) Dehydration (Acute) Left rib fracture (Acute) Occipital pain (Acute) Shoulder pain, left (Acute) Abnormal PET scan of colon (Acute) Atypical chest pain (Acute) Shortness of breath (Acute) Left lower lobe pulmonary nodule (Acute) Recurrent pneumothorax (Acute) Lung blebs (Acute) Muscle spasms of neck (Acute) COPD exacerbation (Acute) Atherosclerotic cardiovascular disease (Acute) Non-STEMI (non-ST elevated myocardial infarction) (Acute) Pneumothorax on left (Acute) Initial 01/02/20 LEFT Repeat spont. LEFT pneumothorax - 05/01/20 Repeat spont. pneumothorax (#3) LEFT 01/2021 COPD (chronic obstructive pulmonary disease) (Chronic) COPD with acute exacerbation (Acute) Smoker (Chronic) Quit approx. October 05, 2018 while in-patient. Has not smoked since. 03/20/19 - Admits to 1 cigaret 1-2 per week. 12/19/19 - smoking 3-4 /day 6-01/2020 - QUIT again 03/16/21 - Reports NONE since 04/2020 Tubular adenoma (Chronic 03/07/16) Colonoscopy 03/07/16 - 5 yr plan Nodule of right lung (Chronic 07/11/16) 2017 - patient reports that this was biopsied at [facility] in [place], and has been followed with PET/CT and was told that it is not cancerous 2019 - R upper lobe malignant neoplasm per [facility], completed radiation 06/2019. Following Lung cancer (Chronic) b/l. Tx'ed w/XRT only in 2019 Peripheral vascular disease (Chronic) Abnormal weight loss (Chronic 04/18/12) Ruptured emphysematous bleb of lung (Acute) Abnormal mammogram of left breast (Acute) History of discectomy (Acute) History of excision of mass (Acute) Primary malignant neoplasm of cervix (Acute) Sciatica (Acute) Squamous cell carcinoma (Acute) Uvulitis (Acute) Impaired fasting glucose (Chronic) Hyperlipidemia (Chronic) Essential hypertension (Chronic 06/24/13) Diverticulosis of colon without diverticulitis (Chronic) Hypoxia (Acute) Carpal tunnel syndrome (Chronic) right Carotid artery stenosis (Chronic) right 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; no residual UPJ obstruction, acquired (Chronic) Medical History Fatigue (06/02/16) Muscle spasms of neck (01/29/18) Nasal bleeding Oxygen dependent Pharyngitis Polyp of colon PVD (peripheral vascular disease) Surgical History Biopsy of breast R cyst aspiration many years ago Cholecystectomy (~01/2009) Colonoscopy - MAC (03/07/16) Dr Parisi excision CIS R buttock 2009 History of lung biopsy (~2015) Hysterectomy, Laproscopic (~1974) fibroid uterus ovaries remain Open Carpal Tunnel release left Status post breast biopsy Status post carpal tunnel release Status post cholecystectomy Surgery EXC/DEST INTVRT DISC NOS, 1992 C6-7 Family History Mother , 65 Cancer Sister , 65 Breast cancer Father , 75 Heart disease Sister Cancer Sister No problems noted. Brother Bone cancer Lung cancer Daughter No problems noted. Daughter No problems noted. Son No problems noted. Brother No problems noted. Maternal Grandfather No problems noted. Paternal Grandfather No problems noted. Maternal Grandmother No problems noted. Paternal Grandmother No problems noted. Social History Smoking/Tobacco Use Status: Former Tobacco Use tobacco type: cigarettes Quit Date: 10/05/18 Tobacco: How many years used: 55 Second Hand Exposure: Yes Counseling given: patient declined Smoking risk assessment performed?: Yes Alcohol Intake: never Substance use type: does not use Details: Quit smoking while in-patient. Caregiver/Support person: No Household members: spouse Housing: house Communication Needs: None Do you need help understanding health information?: Never Pets and animals: No Sexually active: No Do you think of yourself as: straight/heterosexual Current gender identity: female What is your relationship status?: How often do you talk on the phone with friends or family?: once per week Do you belong to any clubs or organized social groups?: no Panel score (0-1 are the most socially isolated patients): 1 What type of physical activity do you participate in: walking Duration: < 15 minutes/day Frequency: daily Special sonia needs: No Seatbelt use: always Drive intox or ride w/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 off highway: No Do you feel safe at home: Yes Do you feel safe in your relationship?: Yes Meds Allergies and Home Medications Allergies Allergy/AdvReac Type Severity Reaction Status Date / Time Tetanus Vaccines and Toxoid Allergy Mild LOCAL Verified 05/19/22 14:02 SWELLING Home Medications Medication Instructions Recorded Confirmed Type inhalational spacing device (Space ##1 06/09/16 05/19/22 History Chamber Plus) aspirin 81 mg tablet,delayed 81 mg PO DAILY #30 tabs 11/11/19 05/28/22 Rx release atorvastatin 80 mg tablet 80 mg PO QPM #90 tabs 12/17/20 05/28/22 Rx acetaminophen 325 mg tablet 325 mg PO DAILY PRN 04/08/21 05/28/22 History (Tylenol) ipratropium 0.5 mg-albuterol 3 mg 3 ml inhalation QID PRN 05/07/21 05/28/22 Rx (2.5 mg base)/3 mL nebulization wheezing/COPD J43.2 #90 mL soln metoprolol tartrate 50 mg tablet 50 mg PO DAILY #90 tabs 08/17/21 05/28/22 Rx albuterol sulfate 90 mcg/actuation 2 puff inhalation Q4H PRN ##2 11/18/21 1 07/28/21 Rx aerosol inhaler (ProAir HFA) lisinopril 10 mg tablet 10 mg PO Q24H #90 tabs 01/19/22 05/28/22 Rx budesonide 160 mcg-glycopyr 9 See Rx Instructions .Route 03/15/22 05/28/22 Rx mcg-formot 4.8 mcg/actuation HFA .COMPLEX #10.7 grams inhaler ([employer]) Exam Narrative Exam Narrative: Thin elderly female appears to be calm alert and oriented person place time circumstance HEENT is unremarkable neck is supple no JVD normal carotid pulses no cervical adenopathy no thyromegaly Lungs are clear anteriorly she has diminished breath sounds at the bases. Chest wall is tender over the left lower lateral rib cage Abdomen is soft nondistended normal bowel sounds nontender no guarding Upper and lower extremities no peripheral cyanosis or edema no axillary adenopathy Neuro exam grossly intact no focal motor or sensory deficits. Results Labs Result diagrams: 05/28/22 12:55 05/28/22 13:56 Labs: Laboratory Results - last 24 hr 05/28/22 05/28/22 05/28/22 12:45 12:55 12:55 WBC 9.29 RBC 6.37 H Hgb 16.6 H Hct 51.4 H MCV 81 MCH 26.1 L MCHC 32.3 RDW 13.2 Plt Count 117 L MPV Immature Gran % 2.5 Neutrophils % 73.3 Lymphocytes % 8.2 Monocytes % 13.7 Eosinophils % 0.5 Basophils % 1.8 Nucleated RBC % 0.0 Absolute Neutrophils 6.81 H Absolute Lymphocytes 0.76 L Absolute Monocytes 1.27 H Absolute Eosinophils 0.05 Absolute Basophils 0.17 RBC Morphology Normal Sodium 137 Potassium 5.3 H Chloride 97 L Carbon Dioxide 22.8 Anion Gap 17.2 H BUN 51 H Creatinine 1.3 H Est GFR (CKD-EPI 2020) 42.88 Glucose 83 Calcium 10.9 H Magnesium 2.0 Total Bilirubin 1.2 H AST 44 H ALT 6 L Alkaline Phosphatase 218 H Troponin I < 50 Total Protein 9.4 H Albumin 4.1 Urine Color Urine Clarity Urine pH Ur Specific [place] Urine Protein Urine Ketones Urine Blood Urine Nitrite Urine Bilirubin Urine Urobilinogen Ur Leukocyte Esterase Urine RBC Urine WBC Ur Epithelial Cells Urine Crystals Urine Bacteria Urine Casts Urine Mucus Ur Culture Indicated? Urine Glucose COVID-19 Source Nasal/Nares SARS-CoV-2 (PCR) Negative 05/28/22 05/28/22 05/28/22 13:56 14:45 18:10 WBC RBC Hgb Hct MCV MCH MCHC RDW Plt Count MPV Immature Gran % Neutrophils % Lymphocytes % Monocytes % Eosinophils % Basophils % Nucleated RBC % Absolute Neutrophils Absolute Lymphocytes Absolute Monocytes Absolute Eosinophils Absolute Basophils RBC Morphology Sodium 137 Potassium 4.7 Chloride 104 Carbon Dioxide 21.3 Anion Gap 11.7 H BUN 45 H Creatinine 0.9 Est GFR (CKD-EPI 2020) 66.67 Glucose 69 L Calcium 7.8 L Magnesium Total Bilirubin AST ALT Alkaline Phosphatase Troponin I < 50 Total Protein Albumin Urine Color Yellow Urine Clarity Sl Cloudy Urine pH 5.5 Ur Specific [place] 1.025 Urine Protein 30 H Urine Ketones 15 H Urine Blood Negative Urine Nitrite Negative Urine Bilirubin Small H Urine Urobilinogen 0.2 Ur Leukocyte Esterase Negative Urine RBC 0-2 Urine WBC 0-2 Ur Epithelial Cells Few Urine Crystals Few Amorphous Urine Bacteria Rare Urine Casts 10-20 Hyaline Urine Mucus Moderate Ur Culture Indicated? No Urine Glucose Negative COVID-19 Source SARS-CoV-2 (PCR) Last Vital Signs Temp 36.2 C L 05/28/22 20:38 Pulse 89 05/28/22 20:38 Resp 20 05/28/22 20:38 BP 116/67 05/28/22 20:38 Pulse Ox 94 05/28/22 20:38
[2022-05-29] MEDS: Lactated Ringers 1,000 ML 100 ML IV (06:09)
[2022-05-29 06:29] LABS: Abs Immature Grans 0.21 10^3/uL (0.0-0.06); Absolute Basophil Count 0.07 10^3/uL (0.0-0.2); HCT 38.9 % (36.0-46.0); HGB 12.2 g/dL (11.2-15.7); MCHC 31.4 % (32.0-36.0); MCV 83 fL (80-95); RDW 13.2 % (11.7-14.6); RDW-SD 39.4 fL; WBC 6.52 10^3/uL (4.4-10.8)
[2022-05-29 06:33] LABS: Platelet Count 87 10^3/uL (130-400)
[2022-05-29 06:34] LABS: Absolute Eosinophil Count 0.13 10^3/uL (0.0-0.7); Absolute Lymphocyte Count 0.85 10^3/uL (1.2-3.4); Absolute Monocyte Count 0.98 10^3/uL (0.1-0.8); Absolute Neutrophil Count 4.37 10^3/uL (1.2-6.7); Metamyelocytes % 1
[2022-05-29 06:35] LABS: Anion Gap 7.3 mmol/L (3-11); BUN 44 mg/dL (7-18); CO2 25.7 mmol/L (21.0-32.0); CREATININE 1.3 mg/dL (0.55-1.02); Calcium 9.2 mg/dL (8.5-10.1); Chloride 106 mmol/L (98-107); Diff Comment Manual Differential; Estimated GFR 42.88 (mL/min/1.73m2); Glucose 80 mg/dL (74-106); Magnesium 1.7 mg/dL (1.8-2.4); RBC Morphology Normal; Sodium 139 mmol/L (136-145)
[2022-05-29 07:43] VITALS: PULSE 86; RESP 16; O2SAT 92
[2022-05-29] MEDS: Aspirin E.C. 81 MG TABEC PO (07:43)
[2022-05-29] MEDS: Metoprolol 50 MG TAB PO (07:43)
[2022-05-29] MEDS: Lisinopril 10 MG TAB PO (07:43)
[2022-05-29] MEDS: Albuterol/Ipratropium 3 ML UPD VIAL UPD (07:43)
[2022-05-29 07:45] VITALS: BP 114/67; PULSE 87; RESP 16; TEMP 36.1; O2SAT 92
[2022-05-29] MEDS: guaiFENesin 600 MG TABCR PO ×2 (07:56→20:37)
[2022-05-29] MEDS: Tiotropium Bromide-Respimat 10 PUFF INH 2 PUFF IH (09:39)
[2022-05-29] MEDS: Budesonide/Formoterol 160/4.5 6 GM 60 PUFF INH IH ×2 (09:40→20:38)
--- NOTE | 2022-05-29 09:54 | IN_ITS ---
PT Notes Visit Reasons: Dehydration, Chest Wall Pain, Dyspnea Inpatient Physical Therapy Evaluation Date: 05/29/2022 Referring Doctor: John Thompson MD PT Orders: PT CONSULT: Fall safety assessment Precautions: Fall risk Patient Profile/Admitting Diagnosis: 77-year-old female admitted last evening with generalized weakness, rib pain PMHX: All Active Problems?(Updated 05/28/22 @ 22:36 by John Talbert MD) Generalized weakness (Acute) Dehydration (Acute) Left rib fracture (Acute) Occipital pain (Acute) Shoulder pain, left (Acute) Abnormal PET scan of colon (Acute) Atypical chest pain (Acute) Shortness of breath (Acute) Left lower lobe pulmonary nodule (Acute) Recurrent pneumothorax (Acute) Lung blebs (Acute) Muscle spasms of neck (Acute) COPD exacerbation (Acute) Atherosclerotic cardiovascular disease (Acute) Non-STEMI (non-ST elevated myocardial infarction) (Acute) Pneumothorax on left (Acute) Initial 01/02/20 LEFT Repeat spont. LEFT pneumothorax - 05/01/20 Repeat spont. pneumothorax (#3) LEFT OPD (chronic obstructive pulmonary d isease) (Chronic) COPD with acute exacerbation (Acute) Smoker (Chronic) Quit approx. October 05, 2018 while in-patient.? Has? not smoked since. 03/20/19 - Admits to 1 cigaret 1-2 per week. 12/19/19 - smoking 3-4 /day -01/2020 - QUIT again 03/16/21 - Reports NONE since 04/2020Tubular adenoma (Chronic 03/07/16) Colonoscopy 03/07/16 - 5 yr planNodule of right lung (Chronic 07/11/16) 2017 - patient reports that this was biopsied at [facility] in [place], and has been followed with PET/CT and was told that it is not cancerous 2019 - R upper lobe malignant neoplasm per [facility], completed radiation 06/2019.? FollowingLung cancer (Chronic) b/l.? Tx'ed w/XRT only in 2019Peripheral vascular disease (Chronic) Abnormal weight loss (Chronic 04/18/12) Ruptured emphysematous bleb of lung (Acute) Abnormal mammogram of left breast (Acute) History of discectomy (Acute) History of excision of mass (Acute) Primary malignant neoplasm of cervix (Acute) Sciatica (Acute) Squamous cell carcinoma (Acute) Uvulitis (Acute) Impaired fasting glucose (Chronic) Hyperlipidemia (Chronic) Essential hypertension (Chronic 06/24/13) Diverticulosis of colon without diverticulitis (Chronic) Hypoxia (Acute) Carpal tunnel syndrome (Chronic) right Carotid artery stenosis (Chronic) right 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 Fatigue (06/02/16) Muscle spasms of neck (01/29/18) Nasal bleeding Oxygen dependent Pharyngitis Polyp of colon PVD (peripheral vascular disease) Surgical History? Biopsy of breast R cyst aspiration many years agoCholecystectomy (~01/2009) Colonoscopy - MAC (03/07/16) Dr Parisiexcisimaxim CIS R buttock 2008 History of lung biopsy (~2015) Hysterectomy, Laproscopic (~1974) fibroid uterus ovaries remainOpen Carpal Tunnel release leftStatus post breast biopsy Status post carpal tunnel release Status post cholecystectomy Surgery EXC/DEST INTVRT DISC NOS, 1992 C6-7 Social History/Home Situation: Lives with her in a one-story home with a ramp entering the home. It has a railing. She is to bathrooms on the first floor, 1 with a walk-in shower which they keep for storage, another with a combo shower tub. She frequently sponge bathes, will occasionally take a bath. She has grab bar to pull her self up. She does not have a shower chair or flexible hose. She is independent with dressing, her drives and does the grocery shopping, she assist with meals. Current Functional Limitations: Walks independently around the house but only from room to room and fatigues quickly. She will occasionally use her 's walker. Equipment Owned/DME: Does not own adaptive equipment Subjective: Patient complains of intermittent discomfort throughout the posterior lateral chest wall particularly with strenuous movements and coughing. She notes that the intensity frequency discomfort has improved though compared to 5 days ago. She also complains of generalized weakness, nausea, dizziness and occasional sense of her knees buckling. Objective: [] General Observation: Resting comfortably in bed, with some discomfort when trying to get in and out of bed. Mental Status: Alert and oriented x3 Pain: Intermittent, throughout the posterior lateral chest wall and rates her pain as #5/10 with activity. No resting pain Vital Signs: Her resting pulse is 70 bpm and O2 sat 88%; following ambulation her O2 sat is 87% and pulse is 81 bpm ROM: She is pain-free functional range of motion of her upper and lower extremities, other than some mild hypomobility with internal rotation of the left hip that 15 to 20 degrees. Her lumbar movements in the upright position are limited in extension and sidebending but nonpainful. She is able to flex forward to grab items off the floor without pain Strength: Her strength is generally rated 4/5 throughout Neuro: KJ's and AJ's are +1 and symmetrical, sensations and proprioception are intact, has full motor control. Fingertips to nose is accurate without ataxia and rapid repetitive arm movements are unimpaired Bed Mobility/Transfers: Independent with assuming the supine to sitting to standing positions but complains of some lightheadedness when initially changing positions. Gait: She ambulates with a FWW with minimal contact guarding and stable gait. Its slow and controlled with short strides and she complains of generalized weakness. She walked approximately 50 feet until fatigue. She is able to walk without assistive device, but requires moderate contact guarding. Balance: Shukla balance test was performed and she scored a 39/56. Score 45 or less indicates a fall risk and need for an assistive device Static Sitting: Stable Dynamic Sitting: Stable Static Standing: Stable Dynamic Standing: Requires contact guarding Special Tests: Mobility Limitations Standardized Measure [facility] AM-PAC 6 clicks Basic Mobility Inpatient Short Form: Raw Score: 21 standardized Score: 4.69 [facility] Score: 50.25/CJ Informed Consent/Education: Patient instructed in purpose of PT consult and plan of care. Assessment: Patient is a 77year old female referred to physical therapy services with the diagnosis of generalized weakness and fall assessment.. Patient presents with clinical signs and symptoms consistent with full motor control but generalized weakness with all functional tasks, and walking distance. She currently walks around the home without an assistive device, but her Shukla balance test today indicates that she is a high fall risk. She will also require adaptive equipment for her tub such as a flexible shower hose and seat along with a wheeled walker. Patient is assessed as a [] Moderate 40523 complexity based on the following: History: See comorbidities and social history Examination: See above for functional imitations impairments Presentation: Evolving Decision Making: Moderate complexity based on her clinical findings and her Shukla balance test score Goals: Goals X1 week Minimize fall risk with proper adaptive equipment such as a wheeled walker. Increase strength throughout Increase exercise tolerance Increase ambulation to greater than 150 feet with a stable gait Improve balance to minimize fall risk Plan of Care/Treatment Plan: 1-2x/day, 7 days/week x 1 week. Plan of care has been reviewed with the PODIATRIC MEDICINE PROFESSOR providing the service under Physical Therapy direction. Initiate Physical Therapy intervention for strengthening, bed mobility, transfers, gait, stairs, balance training, use of assistive device. DISCHARGE RECOMMENDATIONS: [] Home with outpatient PT TREATMENT CODE/TIME: 96690/52449/45 minutes 9:00 to 9:45 AM Disclaimer: This note was created using [employer] voice recognition software. It was reviewed for major content. However, there may be multiple small discrepancies and errors due to the voice recognition aspects of the software.
[2022-05-29] MEDS: Docusate Sodium 100 MG CAP PO (11:50)
[2022-05-29] MEDS: Polyethylene Glycol 3350 17 GM PACKET PO (11:51)
[2022-05-29] MEDS: Benzonatate 200 MG CAP PO ×2 (14:13→20:37)
--- NOTE | 2022-05-29 15:02 | W.PM.PROGNOT ---
Date of Service Date of service: 05/29/22 Time of Service: 15:02 Assessment and Plan Assessment and plan (1) Left rib fracture: Status: Acute Assessment and plan: Lidoderm patches, tramadol, Toradol. Anesthesia consultation for nerve block. Physical therapy consultation to assess fall risk and to promote mobility and work on her generalized weakness. (2) COPD (chronic obstructive pulmonary disease): Status: Chronic Assessment and plan: Continue her home inhaled LABA and LAMA, give as needed DuoNeb treatments as needed. No evidence for acute exacerbation. No need for corticosteroids at this point unless she was for pain control. Qualifiers: COPD type: emphysema Emphysema type: centrilobular Qualified Code(s): J43.2 - Centrilobular emphysema (3) Dehydration: Status: Acute Assessment and plan: Mild dehydration due to poor oral intake. BUN elevated but creatinine normal at 0.8 on initial evaluation. Given IV hydration but creatinine today was increased to 1.3. Cont IV LR and monitor. (4) Generalized weakness: Status: Acute Assessment and plan: Consult physical therapy to assess fall safety risk as well as to promote exercise for reconditioning and improve her ambulatory status as well as to promote her ADL performance. Subjective Subjective Patient reports: no new complaints, still having pain (Left parasternal at rib fx sites. Especially with cough. ), tolerating a regular diet and afebrile; denies nausea or vomiting Exam Narrative Exam Narrative: Gen. Lying in bed. Thin elderly female appears to be calm alert and oriented person place time circumstance Lungs are clear anteriorly she has diminished breath sounds at the bases. Nonlabored breathing. Chest wall is tender over the left lower lateral rib cage and left lower parasternal area. Abdomen is soft nondistended normal bowel sounds nontender no guarding Upper and lower extremities no peripheral cyanosis or edema. Neuro exam grossly intact no focal motor or sensory deficits. Objective Last Vital Signs Temp 36.1 C L 05/29/22 07:45 Pulse 87 05/29/22 07:45 Resp 16 05/29/22 07:45 BP 114/67 05/29/22 07:45 Pulse Ox 92 05/29/22 07:45 Laboratory Results - last 24 hr 05/28/22 05/29/22 05/29/22 18:10 05:46 05:46 WBC 6.52 RBC 4.70 Hgb 12.2 D Hct 38.9 MCV 83 MCH 26.0 L MCHC 31.4 L RDW 13.2 Plt Count 87 L MPV Immature Gran % 0.0 Neutrophils % 67.0 Lymphocytes % 13.0 Monocytes % 15.0 Eosinophils % 2.0 Basophils % 1.0 Metamyelocytes % 1 Nucleated RBC % 0.0 Absolute Neutrophils 4.37 Absolute Lymphocytes 0.85 L Absolute Monocytes 0.98 H Absolute Eosinophils 0.13 Absolute Basophils 0.07 RBC Morphology Normal Sodium 139 Potassium 4.0 Chloride 106 Carbon Dioxide 25.7 Anion Gap 7.3 BUN 44 H Creatinine 1.3 H Est GFR (CKD-EPI 2020) 42.88 Glucose 80 Calcium 9.2 Magnesium 1.7 L Troponin I < 50
[2022-05-29 15:23] VITALS: BP 86/48; PULSE 68; RESP 16; TEMP 37.5; O2SAT 94
[2022-05-29 15:30] VITALS: BP 96/54
[2022-05-29] MEDS: Ketorolac 15 MG/ML VIAL IVP ×2 (16:10→22:43)
[2022-05-29] MEDS: Lactated Ringers 1,000 ML 75 ML IV (17:27)
--- NOTE | 2022-05-29 17:35 | PDOC.CMIN ---
- If Service Date Differs Date of service: 05/29/22 Time of Service: 17:35 Care Management Initial Assess REASON FOR HOSPITALIZATION:: Dehydration, chest wall pain, dyspnea PAST MEDICAL HISTORY/PAST SURGICAL HISTORY:: All Active Problems. Generalized weakness (Acute). Dehydration (Acute). Left rib fracture (Acute). Occipital pain (Acute). Shoulder pain, left (Acute). Abnormal PET scan of colon (Acute). Atypical chest pain (Acute). Shortness of breath (Acute). Left lower lobe pulmonary nodule (Acute). Recurrent pneumothorax (Acute). Lung blebs (Acute). Muscle spasms of neck (Acute). COPD exacerbation (Acute). Atherosclerotic cardiovascular disease (Acute). Non-STEMI (non-ST elevated myocardial infarction) (Acute). Pneumothorax on left (Acute). Initial 01/02/20 LEFT. Repeat spont. LEFT pneumothorax - 05/01/20. Repeat spont. pneumothorax (#3) LEFT 01/2021. COPD (chronic obstructive pulmonary disease) (Chronic). COPD with acute exacerbation (Acute). Smoker (Chronic). Quit approx. October 05, 2018 while in-patient. Has not smoked since. 03/20/19 - Admits to 1 cigaret 1-2 per week. 12/19/19 - smoking 3-4 /day. -01/2020 - QUIT again. 03/16/21 - Reports NONE since 04/2020. Tubular adenoma (Chronic 03/07/16). Colonoscopy 03/07/16 - 5 yr plan. Nodule of right lung (Chronic 07/11/16). 2017 - patient reports that this was biopsied at [facility] in [place], and has been followed with PET/CT and was told that it is not cancerous. 2019 - [place] lobe [place] [facility] radiation 06/2019. Following. Lung cancer (Chronic). b/l. Tx'ed w/XRT only in 2019. Peripheral vascular disease (Chronic). Abnormal weight loss (Chronic 04/18/12). Ruptured emphysematous bleb of lung (Acute). Abnormal mammogram of left breast (Acute). History of discectomy (Acute). History of excision of mass (Acute). Primary malignant neoplasm of cervix (Acute). Sciatica (Acute). Squamous cell carcinoma (Acute). Uvulitis (Acute). Impaired fasting glucose (Chronic). Hyperlipidemia (Chronic). Essential hypertension (Chronic 06/24/13). Diverticulosis of colon without diverticulitis (Chronic). Hypoxia (Acute). Carpal tunnel syndrome (Chronic). right. Carotid artery stenosis (Chronic). right. 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 UPJ obstruction, acquired (Chronic). Medical History. Fatigue (06/02/16). Muscle spasms of neck (01/29/18). Nasal bleeding. Oxygen dependent. Pharyngitis. Polyp of colon. PVD (peripheral vascular disease). Surgical History. Biopsy of breast. R cyst aspiration many years ago. Cholecystectomy (~01/2009). Colonoscopy - MAC (03/07/16). Dr Parisi. excision CIS R buttock 2008. History of lung biopsy (~2015). Hysterectomy, Laproscopic (~1974). fibroid uterus ovaries remain. Open Carpal Tunnel release. left. Status post breast biopsy. Status post carpal tunnel release. Status post cholecystectomy. Surgery. EXC/DEST INTVRT DISC NOS, 1992. C6-7 PREVIOUS FUNCTIONAL STATUS/SOCIAL/FAMILY SUPPORTS:: Lianna lives in [place] with her , Eloy. They relocated to [place] from [place] in the , after their children were grown. Eloy has 2 children and Lianna has 3 and they are all still living in [place]. They have five grandchildren but, so far, no great grandchildren. 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 She is independent at baseline and continues to do her own cooking, cleaning and driving. CURRENT FUNCTIONAL STATUS:: Lianna was sitting up in a chair when CM met with her. She stated that she has not been feeling well for a while. She stated that she met with PT today, who was going to give her some exercises to work on. Per report, PT recommends outpatient PT. She did not report any trauma to staff, and stated that she thinks her rib fracture was due to coughing. She remains in observation for pain control. CM will continue to follow. ADVANCE DIRECTIVES:: Not on file. Has patient been provided with info about the portal/API?: Yes Did the patient sign up for the portal?: No CODE STATUS:: Full Code INSURANCE COVERAGE / FINANCIAL ISSUES:: [employer] CURRENT HOME/COMMUNITY SERVICES/EQUIPMENT:: Lianna has a cane and a walker at home, but does not use either. PRIMARY CARE PHYSICIAN:: Candelaria Pereira POTENTIAL DISCHARGE NEEDS:: Followup with PCP and discharge plan of care PATIENT/FAMILY EDUCATION NEEDS:: Review of discharge instructions, medications, activity, limitations, follow up plan, Ask Me Three ANTICIPATED BARRIERS TO DISCHARGE:: none TRANSPORTATION:: via private vehicle with family PLAN:: Anticipate Lianna will return home once medically cleared. Her will drive her home via private vehicle. She will follow up with her PCP and discharge plan of care. CM will continue to follow.
[2022-05-29] MEDS: Normal Saline Flush 10 ML SYR IVP (20:37)
[2022-05-29] MEDS: Atorvastatin 40 MG TAB 80 MG PO (20:37)
[2022-05-29 20:40] VITALS: RESP 16; O2SAT 92
[2022-05-29] MEDS: Lidocaine 5% Patch 2 PATCH TP (22:39)
[2022-05-29 22:56] VITALS: BP 110/60; PULSE 71; RESP 16; TEMP 36.6; O2SAT 92
[2022-05-30] VITALS (7 sets, daily range): BP systolic 98–136; BP diastolic 54–74; PULSE 63–93; RESP 16–18; TEMP 36.7–37.3; O2SAT 93–98
[2022-05-30] MEDS: Lactated Ringers 1,000 ML 75 ML IV (06:07)
[2022-05-30 06:49] LABS: Anion Gap 6.6 mmol/L (3-11); BUN 26 mg/dL (7-18); CO2 27.4 mmol/L (21.0-32.0); CREATININE 1.1 mg/dL (0.55-1.02); Calcium 8.9 mg/dL (8.5-10.1); Chloride 108 mmol/L (98-107); Glucose 85 mg/dL (74-106); Potassium 3.6 mmol/L (3.5-5.1); Sodium 142 mmol/L (136-145)
[2022-05-30] MEDS: Benzonatate 200 MG CAP PO ×3 (07:51→20:22)
[2022-05-30] MEDS: guaiFENesin 600 MG TABCR PO ×2 (07:51→20:22)
[2022-05-30] MEDS: Ketorolac 15 MG/ML VIAL IVP (07:51)
[2022-05-30] MEDS: Aspirin E.C. 81 MG TABEC PO (07:51)
[2022-05-30] MEDS: Normal Saline Flush 10 ML SYR IVP (07:52)
[2022-05-30] MEDS: Polyethylene Glycol 3350 17 GM PACKET PO ×2 (07:54→20:22)
[2022-05-30] MEDS: Budesonide/Formoterol 160/4.5 6 GM 60 PUFF INH IH ×2 (08:04→20:33)
[2022-05-30] MEDS: Tiotropium Bromide-Respimat 10 PUFF INH 2 PUFF IH (08:04)
--- NOTE | 2022-05-30 08:39 | ANES_ITS ---
Date of service: 05/30/22 Time of Service: 08:39 Anesthesia Note Report Anesthesia Note: Anesthesia consult requested by hospitalist team. Pt. admitted for the following reasons: Assessment and Plan Assessment and plan (1) Left rib fracture: ?Status:?Acute ? ? ? Assessment and plan: Lidoderm patches, tramadol, Toradol. Anesthesia consultation for nerve block. Physical therapy consultation to assess fall risk and to promote mobility and work on her generalized weakness. (2) COPD (chronic obstructive pulmonary disease): ?Status:?Chronic ? ? ? Assessment and plan: Continue her home inhaled LABA and LAMA, give as needed DuoNeb treatments as needed.? No evidence for acute exacerbation.? No need for corticosteroids at this point unless she was for pain control. ?Qualifiers: ?COPD type:?emphysema??Emphysema type:?centrilobular? Qualified Code(s):? J43.2 - Centrilobular emphysema (3) Dehydration: ?Status:?Acute ? ? ? Assessment and plan: Mild dehydration due to poor oral intake.? BUN elevated but creatinine normal at 0.8 on initial evaluation. Given IV hydration but creatinine today was increased to 1.3. Cont IV LR and monitor. (4) Generalized weakness: ?Status:?Acute ? ? ? Assessment and plan: Consult physical therapy to assess fall safety risk as well as to promote exercise for reconditioning and improve her ambulatory status as well as to promote her ADL performance. I spoke to Lianna who appears overall comfortable in no acute distress, eating, able to take a deep breath and coughing/sneezing intermittently. On 05/19 she was noted to have a left 5th rib fx that was non displaced and healing. On 05/28 she was also noted to have an additional left 8th rib that was nondisplaced and healing. These are believed to be from coughing, as patient has not fallen recently that she can remember. After discussion with patient for possible erector spinae nerve block, we both feel she is doing well and would likely not receive the same benefit from this block that she would for an acute rib fx. Given this, the patient declines this procedure for now which I think is very reasonable. She is using her IS, deep breathing with minimal discomfort. I reminded her she can use a pillow or her arms to help splint when coughing as this may provide some relief. We would be happy to see her again if anything changes.
--- NOTE | 2022-05-30 10:24 | W.NUTCONSULT ---
Date of service: 05/30/22 Time of Service: 10:24 Nutritional Consult ASSESSMENT: Lianna was admitted with left rib fractor, dehydration and COPD. She is prior radiation treatment for adenocarcinoma NSCLC. Medical chart review indicates a 25 lbs drop in last 6 months (-25% weight loss), now with BMI <19 . Moderate malnutrition evident with significant weight loss/low BMI. Following regular meal plan and meeting nutrient needs at this time. Estimated Needs: 7320-3662 kcal, 55-60 g protein. Needs to complete >75% of meals to meet basic needs NUTRITIONAL DIAGNOSIS: Moderate malnutrition as evidenced by unintentional weight loss due to acute disease process INTERVENTION: COntinue regular meal plan, provide ensure or CIB shakes as needed to meet nutrient needs Consider appetite stimulant such as marinol MONITORING AND EVALUATION: weight, po intake, labs Time Spent in Nutritional Counseling and Treatment: 0
[2022-05-30] MEDS: Patch Removal 1 EACH TP (10:36)
--- NOTE | 2022-05-30 11:27 | PDOC.CMDIS ---
- If Service Date Differs Date of service: 05/30/22 Time of Service: 11:27 LACE Index Scoring Tool - Questions: Length of Stay (in days): 2 Acuity (Admit via E.D.?): Yes Comorbidities: PVD, Chronic Pulmonary Disease, Any Tumor E.D. Visits: 2 - Answers: Total Score: 12 Risk of Readmission: High Risk Care Management Discharge Reason for Hospitalization: Dehydration, chest wall pain, dyspnea Discharge Plan: Lianna will return home once medically cleared. Her Eloy will drive her home via private vehicle. She will follow up with her PCP and discharge plan of care including . Patient/Family Education Needs: Review discharge instructions discuss Ask Me Three. Services Needed at Discharge: Home Health Care Services (New PT)
--- NOTE | 2022-05-30 12:14 | PT.INTREAT ---
Date of service: 05/30/22 Time of Service: 09:05 PT Notes Visit Reasons: Dehydration, Chest Wall Pain, Dyspnea Inpatient Physical Therapy Treatment Note [facility] Date: 05/30/2022 PRECAUTIONS: Activity as tolerated SUBJECTIVE: Lianna is pleasant and agreeable to participating in PT. She reports that she isn't feeling much better. OBJECTIVE: PAIN: Patient c/o pain in rib area at fracture location, as well as L kidney area in a.m.; no c/o pain in p.m. BED MOBILITY/TRANSFERS Sit-supine: I with HOB flat Supine-sit: I with HOB at 30 degrees Sit-stand: SBA Stand-sit: SBA GAIT Assistive Device: FWW Weight bearing: Full Assist: SBA Distance: 40' in a.m.; 80' in p.m. Deviation: Increased fatigue, slow pacing, short step height and length, anteroflexed posture THEREX: Patient was instructed in a LE strengthening program, completed in a supine position in a.m. and in a seated position in p.m., to include: ankle pumps, heel raises, LAQ, heel slides, hip flexion, hip abduction, quad sets and glute sets. ASSESSMENT: Patient tolerated session well, however, with complaint of pain in rib area with transfers. She demonstrates slow pacing and short step height and length, although was able to tolerate a progression in gait distance in p.m.. PLAN: Continue with global strengthening and gait training for improved activity tolerance. TREATMENT CODE/TIME: Session 1: 30 minutes; 83952 x2 (09:05) Session 2: 25 minutes; [id number], [id number] (14:18)
--- NOTE | 2022-05-30 18:18 | PGE_ITS ---
Date of Service Date of service: 05/30/22 Time of Service: 18:19 Assessment and Plan Assessment and plan (1) Left rib fracture: Status: Acute Assessment and plan: Noted, on CT, to be partially healed. Lidoderm patches, tramadol, Toradol. Anesthesia consultation for nerve block but given she is feeling better, decision made to not proceed with block. Physical therapy consultation to assess fall risk and to promote mobility and work on her generalized weakness. (2) COPD (chronic obstructive pulmonary disease): Status: Chronic Assessment and plan: Continue her home inhaled LABA and LAMA, give as needed DuoNeb treatments as needed. No evidence for acute exacerbation. No need for corticosteroids at this point unless she was for pain control. Qualifiers: COPD type: emphysema Emphysema type: centrilobular Qualified Code(s): J43.2 - Centrilobular emphysema (3) Dehydration: Status: Acute Assessment and plan: Mild dehydration due to poor oral intake. BUN elevated but creatinine normal at 0.8 on initial evaluation. Creatinine did increase to 1.3, now 1.1. Stopped IV hydration. (4) Generalized weakness: Status: Acute Assessment and plan: Consult physical therapy to assess fall safety risk as well as to promote exercise for reconditioning and improve her ambulatory status as well as to pro mote her ADL performance. 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 but also AMRIK (she is followed both by Dr. Bhandari in pulmonary clinic and by [facility] in [facility].? Subjective Subjective Patient reports: no new complaints, feels better and afebrile; denies shortness of breath Interval history since last seen: + dry cough. Cough causes pain at rib left rib fx sights. Exam Narrative Exam Narrative: Gen. Sitting on edge of bed. Thin elderly female appears to be calm alert and oriented person place time circumstance Lungs are clear anteriorly she has diminished breath sounds at the bases. Nonlabored breathing. Chest wall is tender over the left lower lateral rib cage and left lower parasternal area. Abdomen is soft nondistended normal bowel sounds nontender no guarding Upper and lower extremities no peripheral cyanosis or edema. Neuro exam grossly intact no focal motor or sensory deficits. Objective Last Vital Signs Temp 37.1 C 05/30/22 15:30 Pulse 79 05/30/22 15:30 Resp 18 05/30/22 15:30 BP 126/71 05/30/22 15:30 Pulse Ox 93 05/30/22 15:30 Laboratory Results - last 24 hr 05/30/22 05:50 Sodium 142 Potassium 3.6 Chloride 108 H Carbon Dioxide 27.4 Anion Gap 6.6 BUN 26 H Creatinine 1.1 H Est GFR (CKD-EPI 2020) 52.40 Glucose 85 Calcium 8.9
[2022-05-30] MEDS: Atorvastatin 40 MG TAB 80 MG PO (20:22)
[2022-05-30] MEDS: Lidocaine 5% Patch 2 PATCH TP (21:25)
[2022-05-31 07:39] VITALS: BP 132/80; PULSE 86; RESP 17; TEMP 37.1; O2SAT 94
[2022-05-31] MEDS: Budesonide/Formoterol 160/4.5 6 GM 60 PUFF INH IH (07:41)
[2022-05-31] MEDS: Tiotropium Bromide-Respimat 10 PUFF INH 2 PUFF IH (07:41)
[2022-05-31] MEDS: Polyethylene Glycol 3350 17 GM PACKET PO (08:46)
[2022-05-31] MEDS: Milk of Magnesia 30 ML CUP PO (08:46)
[2022-05-31] MEDS: Benzonatate 200 MG CAP PO (08:46)
[2022-05-31] MEDS: guaiFENesin 600 MG TABCR PO (08:46)
[2022-05-31] MEDS: Aspirin E.C. 81 MG TABEC PO (08:46)
[2022-05-31] MEDS: Normal Saline Flush 10 ML SYR IVP ×2 (08:46→11:18)
[2022-05-31] MEDS: Patch Removal 1 EACH TP (11:13)
[2022-05-31] MEDS: Acetaminophen 325 MG TAB PO (11:28)
[2022-05-31 11:35] VITALS: BP 150/92; PULSE 92; RESP 16; TEMP 36.9; O2SAT 96
--- NOTE | 2022-05-31 12:24 | PT.INTREAT ---
Date of service: 05/31/22 Time of Service: 11:33 PT Notes Visit Reasons: Dehydration, Chest Wall Pain, Dyspnea Inpatient Physical Therapy Treatment Note [facility] Date: 05/31/2022 PRECAUTIONS: Activity as tolerated SUBJECTIVE: Lianna is pleasant and agreeable to participating in PT. She reports that she isn't feeling much better. OBJECTIVE: PAIN: Patient c/o pain in rib area at fracture location BED MOBILITY/TRANSFERS Sit-supine: S with HOB at 30 degrees with cueing for log rolling technique Sit-stand: SBA Stand-sit: SBA GAIT Assistive Device: FWW Weight bearing: Full Assist: SBA Distance: 30' Deviation: Increased fatigue, slow pacing, short step height and length, anteroflexed posture, c/o dizziness ASSESSMENT: Patient tolerated session with complaint of pain in rib area, dizziness and SOB with activity. She continues to demonstrate slow pacing and short step height and length. PLAN: Continue with global strengthening and gait training for improved activity tolerance. TREATMENT CODE/TIME: Session 1: 15 minutes; [id number] (11:33)
[2022-05-31] MEDS: Meclizine 12.5 MG TAB PO (12:37)
[2022-05-31 13:41] LABS: Procalcitonin < 0.1 ng/mL
[2022-05-31 14:52] LABS: Source Nasal/Nares
[2022-05-31 15:24] LABS: COVID-19 PCR Negative (Negative)
--- NOTE | 2022-05-31 16:14 | W.PM.DS.N ---
Date of service: 05/31/22 Time of Service: 16:15 DS: Diagnosis Discharge Diagnosis (1) Left rib fracture: Status: Acute Asessment and Plan: Lidoderm patches, prn tramadol and ketoralac initiated. PT. Some improvement. OTC lidocaine patches recommended. (2) COPD (chronic obstructive pulmonary disease): Status: Chronic Asessment and Plan: Stable w/o exacerbation. Cont home inhaled LABA and LAMA, Duoneb. (3) Dehydration: Status: Acute Asessment and Plan: Rehydrated. Creatinine improved from 1.3 to 1.1. (4) Generalized weakness: Status: Acute Asessment and Plan: Likely related to what is likely recurrence of lung cancer resulting in poor appetite and decreased intake. During course of this hospitalization her appeptite improved but on the day of d/c her sense of taste was diminished. Repeat Covid was negative. (5) Non-small cell carcinoma of lung: Status: Acute Asessment and Plan: Cont follow ups with Oncology and Dr Crystal. Discuss appetite stimulant with oncology. She was hesitant to initiate marinol but is considering it. 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 but also AMRIK (she is followed both by Dr. Bhandari in pulmonary clinic and by [facility] Reed [facility] in [facility]. She? presents for increasing dyspnea on exertion and dizziness for the past 5 days with a sensation of increased heart rate today. she has been nauseated d/t pain in her left side. She was seen in the ER on 05/[address] that showed left sided 5th and 8th ribs incompletely healed fractures. She was prescribed lidocaine patches and ibuprofen. She says that the pain has been keeping her awake at night and it hurts worse w/ coughing and her appetite has been off. The pain has made her so nauseated that she can not eat. On evaluation in the ER she was noted to be tachypneic and tachycardic w/ hr 128 bmp and RR 20, no fever and no hypotension. Labs revealed that she is moderately dehydrated w/ BUN 45 but normal creatinine 0.9 (this was after redraw d/t hemolyzed specimen in which first BUN and creatinine were 51 and 1.3 and K was 5.3). Covid negative. Patient was given a normal saline bolus of 250 mL then put on NS @ 125 mL/hr. The ED attempted to walk her but she was too weak, even after they fed her while in the ER. She is now admitted for pain control and rehydration. She is admitted on observation status. See Diagnosis PCP follow up scheduled for 06/03/22 at 11:20. Home Meds and New Rx's Prescriptions: New meclizine 12.5 mg Tablet 12.5 mg PO TID PRN PRNQty: 0 0RF lidocaine 5 % Adhesive Patch,Medicated 2 patch topical HS Qty: 0 0RF Continued ipratropium-albuterol 0.5 mg-3 mg(2.5 mg base)/3 mL solution for nebulization 3 ml inhalation QID PRN (Reason: wheezing/COPD J43.2) Qty: 90 3RF aspirin 81 mg tablet,delayed release (DR/EC) 81 mg PO DAILY Qty: 30 12RF atorvastatin 80 mg tablet 80 mg PO QPM Qty: 90 4RF metoprolol tartrate 50 mg tablet 50 mg PO DAILY Qty: 90 3RF albuterol sulfate [ProAir HFA] 90 mcg/actuation HFA aerosol inhaler 2 puff Inhalation Q4H PRN Qty: 2 4RF lisinopril 10 mg tablet 10 mg PO Q24H Qty: 90 3RF Breztri Aerosphere 160-9-4.8 mcg/actuation HFA aerosol inhaler See Rx Instructions .ROUTE .COMPLEX Qty: 10.7 8RF Dose Instruction: INHALE TWO PUFFS BY MOUTH TWICE A DAY FOR COPD Rx Instructions: INHALE TWO PUFFS BY MOUTH TWICE A DAY FOR COPD acetaminophen [Tylenol] 325 mg tablet 325 mg PO DAILY PRN No Action (DME) Space Chamber Plus 1 EACH spacer 1 ea Miscellaneous PRN Qty: 1 Discharge Instructions Instructions: Dehydration (DC), Dyspnea (DC), Chest Wall Pain (ED) Stand Alone Forms: Nursing Discharge Form Referrals: Candelaria Pereira MD [Primary Care Provider] - 06/03/22 11:20 am Activity:: Activity as Tolerated Equipment/Supplies:: No Equipment Needed Diet:: Resume usual diet Discharge Orders Discharge Orders: Discharge Order (Routine); Ordered 05/31/22 Ordered By: Francisco Javier Holland DS: Summary Time Spent with Patient providing and/or coordinating discharge services: Greater than 30 minutes Status at Discharge Functional status at discharge: independent ambulation Overall status at discharge: patient is progressing back to baseline Mental Status: mental status grossly normal Speech and Movement: speech clear Mood: congruent mood Affect: normal affect Exam Narrative Exam Narrative: Gen. Sitting on edge of bed. Thin elderly female appears to be calm alert and oriented person place time circumstance Lungs are clear anteriorly she has diminished breath sounds at the bases. Nonlabored breathing. Chest wall is tender over the left lower lateral rib cage and left lower parasternal area. Abdomen is soft nondistended normal bowel sounds nontender no guarding Upper and lower extremities no peripheral cyanosis or edema. Neuro exam grossly intact no focal motor or sensory deficits. Psych Mental Status: mental status grossly normal Speech and Movement: speech clear Mood: congruent mood Affect: normal affect DS: Data Vitals/I&O Vitals and I&O: Vital Signs Temperature 36.9 C 05/31/22 11:35 Temperature Source Tympanic 05/31/22 11:35 Pulse 92 H 05/31/22 11:35 Pulse Rhythm Regular 05/31/22 15:54 Pulse 81 05/28/22 18:46 Respiratory Rate 16 05/31/22 11:35 Respiratory Effort 05/31/22 15:54 Respiratory Depth Shallow 05/31/22 15:54 Respiratory Pattern Normal 05/31/22 15:54 Blood Pressure 150/92 H 05/31/22 11:35 Blood Pressure Mean 59 05/28/22 18:46 Blood Pressure Position Sitting 05/28/22 11:56 Pulse Oximetry 96 05/31/22 11:35 Oxygen Delivery Method Room Air 05/31/22 11:35 Oxygen Flow Rate 0 05/31/22 11:35 Pain Level 8 05/31/22 15:25 Comment 11/08/22 11:35 Intake & Output 05/30/22 05/31/22 05/31/22 23:59 11:59 23:59 Intake Total 1560 / 2920 480 / 840 360 / 840 Output Total 600 / 1100 1300 / 1300 Balance 960 / 1820 -820 / -460 360 / -460 Intake: IV 660 / 1620 Oral 900 / 1300 480 / 840 360 / 840 Output: Urine 600 / 1100 1300 / 1300 Other: Urine Color Yellow Yellow Urine Appearance Clear Clear Clear Urine Odor None None Voiding Methods Bedside Commode Toilet Data Completed and Pending Labs on day of discharge: Labs from last 24 hours 05/31/22 05/31/22 14:37 12:32 Procalcitonin < 0.1 COVID-19 Source Nasal/Nares SARS-CoV-2 (PCR) Negative PFSH All Active Problems Non-small cell carcinoma of lung (Acute) Dyspnea on exertion (Acute) Tachycardia (Acute) Dizziness (Acute) History of fracture of rib (Acute) Generalized weakness (Acute) Dehydration (Acute) Left rib fracture (Acute) Occipital pain (Acute) Shoulder pain, left (Acute) Abnormal PET scan of colon (Acute) Atypical chest pain (Acute) Shortness of breath (Acute) Left lower lobe pulmonary nodule (Acute) Recurrent pneumothorax (Acute) Lung blebs (Acute) Muscle spasms of neck (Acute) COPD exacerbation (Acute) Atherosclerotic cardiovascular disease (Acute) Non-STEMI (non-ST elevated myocardial infarction) (Acute) Pneumothorax on left (Acute) Initial 01/02/20 LEFT Repeat spont. LEFT pneumothorax - 05/01/20 Repeat spont. pneumothorax (#3) LEFT 01/2021 COPD (chronic obstructive pulmonary disease) (Chronic) COPD with acute exacerbation (Acute) Smoker (Chronic) Quit approx. October 05, 2018 while in-patient. Has not smoked since. 03/20/19 - Admits to 1 cigaret 1-2 per week. 12/19/19 - smoking 3-4 /day -01/2020 - QUIT again 03/16/21 - Reports NONE since 04/2020 Tubular adenoma (Chronic 03/07/16) Colonoscopy 03/07/16 - 5 yr plan Nodule of right lung (Chronic 07/11/16) 2017 - patient reports that this was biopsied at [facility] in [place], and has been followed with PET/CT and was told that it is not cancerous 2019 - R upper lobe malignant ne[place] [facility], completed radiation 06/2019. Following Lung cancer (Chronic) b/l. Tx'ed w/XRT only in 2019 Peripheral vascular disease (Chronic) Abnormal weight loss (Chronic 04/18/12) Ruptured emphysematous bleb of lung (Acute) Abnormal mammogram of left breast (Acute) History of discectomy (Acute) History of excision of mass (Acute) Primary malignant neoplasm of cervix (Acute) Sciatica (Acute) Squamous cell carcinoma (Acute) Uvulitis (Acute) Impaired fasting glucose (Chronic) Hyperlipidemia (Chronic) Essential hypertension (Chronic 06/24/13) Diverticulosis of colon without diverticulitis (Chronic) Hypoxia (Acute) Carpal tunnel syndrome (Chronic) right Carotid artery stenosis (Chronic) right 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; no residual UPJ obstruction, acquired (Chronic) Medical History Fatigue (06/02/16) Muscle spasms of neck (01/29/18) Nasal bleeding Oxygen dependent Pharyngitis Polyp of colon PVD (peripheral vascular disease) Surgical History Biopsy of breast R cyst aspiration many years ago Cholecystectomy (~01/2009) Colonoscopy - MAC (03/07/16) Dr Parisi excision CIS R buttock 2008 History of lung biopsy (~2015) Hysterectomy, Laproscopic (~1974) fibroid uterus ovaries remain Open Carpal Tunnel release left Status post breast biopsy Status post carpal tunnel release Status post cholecystectomy Surgery EXC/DEST INTVRT DISC NOS, 1991 C6-7 Family History Mother , 65 Cancer Sister , 65 Breast cancer Father , 75 Heart disease Sister Cancer Sister No problems noted. Brother Bone cancer Lung cancer Daughter No problems noted. Daughter No problems noted. Son No problems noted. Brother No problems noted. Maternal Grandfather No problems noted. Paternal Grandfather No problems noted. Maternal Grandmother No problems noted. Paternal Grandmother No problems noted. Social History Smoking/Tobacco Use Status: Former Tobacco Use tobacco type: cigarettes Quit Date: 10/05/18 Tobacco: How many years used: 55 Second Hand Exposure: Yes Counseling given: patient declined Smoking risk assessment performed?: Yes Alcohol Intake: never Substance use type: does not use Details: Quit smoking while in-patient. Caregiver/Support person: No Household members: spouse Housing: house Communication Needs: None Do you need help understanding health information?: Never Pets and animals: No Sexually active: No Do you think of yourself as: straight/heterosexual Current gender identity: female What is your relationship status?: How often do you talk on the phone with friends or family?: once per week Do you belong to any clubs or organized social groups?: no Panel score (0-1 are the most socially isolated patients): 1 What type of physical activity do you participate in: walking Duration: < 15 minutes/day Frequency: daily Special sonia needs: No Seatbelt use: always Drive intox or ride w/intox route cdl driver: No Do you feel safe at home: Yes Do you feel safe in your relationship?: Yes
--- NOTE | 2022-05-31 16:43 | PDOC.HHF2F ---
Home Health Certification Home Health Certification: 1. Encounter Date and Reason I certify that Lianna Reynolds was seen by Francisco Javier Holland MD on 05/31/22 and that I had a [id number] encounter with this patient that meets the physician face to face encounter requirements. 2. Clinical Findings Supporting Skilled Need and Homebound Status I certify that home health services are medically necessary, include either intermittent senior care and/or physical/speech therapy, and that this patient is homebound in that absences from the home require considerable and taxing effort and are infrequent or of short duration, or are attributable to the need to receive medical care. [X] (a) Attached documentation from encounter provides clinical findings supporting skilled need and homebound status (including what assistance patient requires to leave the home). The encounter with the patient was in whole, or in part, for the following medical condition, which is the primary reason for home health care: Dehydration, Chest Wall Pain, Dyspnea Half-Way: Physical Therapy:restore patient's ability to ambulate safely and to increase strength and endurance Speech Therapy: Homebound: She is unable to leave home without assistance and ambulation is severly limited due to decreased strength and endurance. 3. Certification and Authentication I certify that I composed the above information based on my clinical judgement relating to this patient's medical condition and, if applicable, clinical findings communicated to me by the NPP or inpatient physician who performed the Home Health Referral. All further orders will be obtained through ____Candelaria Pereira (Community Based Physician - PCP)
== END 2022-05-31 17:35 | disposition home health service (06) ==
LOC: ER 12:36 → MS 19:41
PROVIDERS: Family Medicine; Admitting Provider Internal Medicine; Emergency Provider Physician Assistant; PCP Family Medicine; Visit Provider Internal Medicine
DX: G89.11 Acute pain due to trauma (principal); R07.81 Pleurodynia; R06.00 Dyspnea, unspecified; S22.42XD Multiple fractures of ribs, left side, subsequent encounter for fracture with routine healing; R42 Dizziness and giddiness; R59.0 Localized enlarged lymph nodes; E86.0 Dehydration; J43.2 Centrilobular emphysema; R53.1 Weakness; Z23 Encounter for immunization; Z20.822 Contact with and (suspected) exposure to COVID-19; I25.10 Atherosclerotic heart disease of native coronary artery without angina pectoris; I10 Essential (primary) hypertension; R91.8 Other nonspecific abnormal finding of lung field; I25.2 Old myocardial infarction; Z87.891 Personal history of nicotine dependence; I73.9 Peripheral vascular disease, unspecified; Z85.118 Personal history of other malignant neoplasm of bronchus and lung; R73.01 Impaired fasting glucose; E78.5 Hyperlipidemia, unspecified; K57.30 Diverticulosis of large intestine without perforation or abscess without bleeding; W19.XXXD Unspecified fall, subsequent encounter
CPT/HCPCS: 36415; 71275; 80048; 80053; 84145; 87635; 90662; 93005; 94640; 96361; 96365; 96366; 96372; 96374; 96375; 96376; 97110; 97162; 97530; 99285; J1650; 71045; 81003; 81015; 83735; 84484; 85025; 93010; 94667; 99217; 99219; 99225; J0131; J1170; J1885; J2405; J3490; J7620

== ENCOUNTER 2022-06-24 09:58 | Inpatient (IN) | payer MEDICARE, SELFPAY ==
[2022-06-24] VITALS (28 sets, daily range): BP systolic 96–155; BP diastolic 57–98; PULSE 88–139; RESP 17–27; TEMP 36.7–37; O2SAT 94–100
--- NOTE | 2022-06-24 | DI.CT_ITS ---
Exam(s) CT CHEST PE CTA EXAM: CT CHEST PE CTA CLINICAL HISTORY: shortness of breath, h/o malignancy, ?lung abscess. TECHNIQUE: Imaging Protocol: Axial CT angiography was performed with multi-slice acquisition and mu lti-planar and/or 3D reconstructions. CONTRAST MATERIAL: Intravenous: Omnipaque 350 Contrast volume:structured data in ml COMPARISON: CT CT CHEST PE CTA from 05/28/2022 FINDINGS: CT angiography of the chest was performed with intravenous infusion of 100 cc of Omnipaque 350. The lungs are predominantly clear with a previously noted left lung spiculated nodule unchanged in ap pearance at approximately 9 millimeters. No new infiltrate, a previously noted right upper lobe scar ring also again seen. No pleural effusion. Tracheobronchial tree appears intact. No evidence of pulmonary embolic disease. Thoracic aorta is of normal diameter, no thoracic aortic an eurysm or dissection, major branch vessels appear intact. No mediastinal or hilar adenopathy. Images obtained through the upper abdomen show unremarkable appearance of the visualized portions of the liver, and spleen, note is made of probable right hydronephrosis.. IMPRESSION: Probable right hydronephrosis. No change in appearance of the chest from May 28 study. No zuleika dence of pulmonary embolic disease. RADIATION DOSE DELIVERED: 206.49mGy.cm Total DLP 206.49mGy.cm Total DLP DATA REPOSITORY: All CT scans at this facility are submitted to the National Radiology Data Registry (NRDR) Dose Index Registry (DIR) with the [employer] (ACR). RADIATION OPTIMIZATION: All CT scans at this facility use at least one of these dose optimization te chniques: automated exposure control; mA and/or kV adjustment per patient size (includes targeted exa ms where dose is matched to clinical indication); or iterative reconstruction.
--- NOTE | 2022-06-24 09:45 | RT.EKG_ITS ---
APPROVED REPORT Exam: Resting ECG Reason for Exam: Dyspnea Patient Location: E HR:116 bpm ECG Measurements Heart Rate 116 AXIS GA 135 P 80 QRSd 77 QRS 85 QT 317 T -61 QTc 441 Conclusion Sinus tachycardia...rate> 99 sinus tachycardia, normal axis, normal intervals, non ischemic
--- NOTE | 2022-06-24 10:00 | DI.RAD_ITS ---
Exam(s) XR PORTABLE CHEST AP EXAM: XR PORTABLE CHEST AP CLINICAL HISTORY: copd hx rib fract, sob hypoxia, cough TECHNIQUE: 2D digital imaging was performed. COMPARISON: CR XR PORTABLE CHEST AP from 05/19/[address] CHEST PE CTA from 05/28/2022 CR,XR XR PORTABLE CHEST AP from 05/28/2022 FINDINGS: LUNGS: Hyperinflated. Emphysematous changes. Scarring, greatest at the right upper lobe. No pleura l abnormality seen. HEART: Normal size. AORTA: Normal diameter. Calcification at the arch. BONES: Old left rib fractures. Soft tissues: Unremarkable. IMPRESSION: No acute findings. DATA REPOSITORY: RADIATION DOSE DELIVERED:
--- NOTE | 2022-06-24 10:19 | ED.GENADUL_ITS ---
Discharge Plan Disposition Patient Disposition: Admit to [facility] Condition: Stable Discharge Details Chief Complaint: RespSymp Clinical Impression: COPD exacerbation, Acute dehydration Primary Care Provider: Candelaria Pereira ED Provider: Francisco Javier Dillard Home Meds and New Rx's Prescriptions: No Action ipratropium-albuterol 0.5 mg-3 mg(2.5 mg base)/3 mL solution for nebulization 3 ml inhalation QID PRN (Reason: wheezing/COPD J43.2) Qty: 90 3RF (DME) Space Chamber Plus 1 EACH spacer 1 ea Miscellaneous PRN Qty: 1 albuterol sulfate [ProAir HFA] 90 mcg/actuation HFA aerosol inhaler 2 puff Inhalation Q4H PRN Qty: 2 4RF Breztri Aerosphere 160-9-4.8 mcg/actuation HFA aerosol inhaler See Rx Instructions .ROUTE .COMPLEX Qty: 10.7 8RF Dose Instruction: INHALE TWO PUFFS BY MOUTH TWICE A DAY FOR COPD Rx Instructions: INHALE TWO PUFFS BY MOUTH TWICE A DAY FOR COPD acetaminophen [Tylenol] 325 mg tablet 325 mg PO DAILY PRN lidocaine 5 % Adhesive Patch,Medicated 2 patch topical HS Qty: 0 0RF Medical Decision Making 77-year-old female history of COPD brought in for fatigue hypoxia tachycardia slightly dry skin no peripheral edema, tachycardic sinus rhythm to the 130s, lungs clear bilaterally, however desaturates to the 80s on room air. Consider COPD exacerbation the setting of viral syndrome such as influenza versus COVID versus RSV was also consider pneumonia versus electrolyte abnormality versus dehydration. Labs imaging fluids breathing treatments close reassessment 15: 49 multiple IVs have blown; placed EJ which also blew; was able to place another line of right brachial using ultrasound guidance. Work of breathing greatly improved after nebs and steroids however still tachycardic. Likely component of dehydration. Decreased p.o. intake per over the past week. Lower suspicion for PE given no chest pain no longer dyspneic and EKG. Will need admission for IV hydration, as well as coordination for home oxygen therapy. Sign Out No HPI General Date/Time Provider Initiated Documentation: 06/24/22 10:03 . HPI Narrative: 77-year-old female history of COPD brought in for evaluation of generalized fatigue cough and diarrhea over the past several days, was told that she may have multiple fractured ribs from coughing. Noted to be hypoxic in the field and tachycardic. Related Data Home Medications Medication Instructions Recorded Confirmed inhalational spacing device (Space ##1 06/09/16 06/24/22 Chamber Plus) acetaminophen 325 mg tablet 325 mg PO DAILY PRN 04/08/21 06/24/22 (Tylenol) ipratropium 0.5 mg-albuterol 3 mg 3 ml inhalation QID PRN 05/07/21 06/24/22 (2.5 mg base)/3 mL nebulization wheezing/COPD J43.2 #90 mL soln albuterol sulfate 90 mcg/actuation 2 puff inhalation Q4H PRN ##2 11/18/21 06/24/22 aerosol inhaler (ProAir HFA) budesonide 160 mcg-glycopyr 9 See Rx Instructions .Route 03/15/22 06/24/22 mcg-formot 4.8 mcg/actuation HFA .COMPLEX #10.7 grams inhaler (Breztri Aerosphere) lidocaine 5 % topical patch 2 patch topical HS #0 ea 05/31/22 06/24/22 Previous Rx's Medication Instructions Recorded ipratropium 0.5 mg-albuterol 3 mg 3 ml inhalation QID PRN 05/07/21 (2.5 mg base)/3 mL nebulization wheezing/COPD J43.2 #90 mL soln albuterol sulfate 90 mcg/actuation 2 puff inhalation Q4H PRN ##2 11/18/21 aerosol inhaler (ProAir HFA) budesonide 160 mcg-glycopyr 9 See Rx Instructions .Route 03/15/22 mcg-formot 4.8 mcg/actuation HFA .COMPLEX #10.7 grams inhaler (Breztri Aerosphere) lidocaine 5 % topical patch 2 patch topical HS #0 ea 05/31/22 Allergies Allergy/AdvReac Type Severity Reaction Status Date / Time Tetanus Vaccines and Toxoid Allergy Mild LOCAL Verified 06/24/22 10:50 SWELLING General Stated Complaint: RespSymp SHIN: 3 Review of Systems Narrative: Review of Systems Constitutional: Fatigue Eyes: negative ENT: negative Cardiovascular: negative Respiratory: Cough Gastrointestinal: negative : negative Musculoskeletal: negative Skin: negative Neurologic: negative Psych: negative PFSH All Active Problems (Updated 06/24/22 @ 16:01 by Francisco Javier Dillard MD) Carotid artery stenosis (Chronic) right 15-49% in 2020; known left ICA occlusion Essential hypertension (Chronic 06/24/13) Hyperlipidemia (Chronic) Peripheral vascular disease (Chronic) s/p femoral stent [place] [facility] Tubular adenoma (Chronic 03/07/16) Colonoscopy 03/07/16 - 5 yr plan; colonoscopy 02/2022 at [facility]; tubular adenoma and tubulovillous adenomas Sciatica (Acute) COPD (chronic obstructive pulmonary disease) (Chronic) Atherosclerotic cardiovascular disease (Acute) cardiac cath in 2020 with nonobstructive disease Left lower lobe pulmonary nodule (Acute) Generalized weakness (Acute) Dizziness (Acute) History of fracture of rib (Acute) Non-small cell carcinoma of lung (Acute ~05/2019) Biopsied at [facility]; followed by [facility] pulm and [facility] oncology. 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 October 05, 2018 while in-patient. Has not smoked since. 03/20/19 - Admits to 1 cigaret 1-2 per week. 12/19/19 - smoking 3-4 /day -01/2020 - QUIT again 03/16/21 - Reports NONE since 04/2020 Hx of non-ST elevation myocardial infarction (NSTEMI) (2019) in the setting of pneumothorax Pneumothorax on left Initial 01/02/20 LEFT Repeat spont. LEFT pneumothorax - 05/01/20 Repeat spont. pneumothorax (#3) LEFT 01/2021 Polyp of colon Primary malignant neoplasm of cervix s/p hyst Ruptured emphysematous bleb of lung Squamous cell carcinoma of skin UPJ obstruction, acquired chronic bilateral hydronephrosis on CT Surgical History (Updated 06/01/22 @ 08:07 by Candelaria Pereira MD) Colonoscopy - MAC (03/07/16) Dr Parisi excision CIS R buttock 2008 History of discectomy History of excision of mass History of lung biopsy (~2015) S/P hysterectomy fibroid uterus ovaries remain Status post breast biopsy Status post carpal tunnel release Status post cholecystectomy Family History Mother , 65 Cancer Sister , 65 Breast cancer Father , 75 Heart disease Sister Cancer Sister No problems noted. Brother Bone cancer Lung cancer Daughter No problems noted. Daughter No problems noted. Son No problems noted. Brother No problems noted. Maternal Grandfather No problems noted. Paternal Grandfather No problems noted. Maternal Grandmother No problems noted. Paternal Grandmother No problems noted. Social History Smoking/Tobacco Use Status: Former Tobacco Use tobacco type: cigarettes Quit Date: 10/05/18 Tobacco: How many years used: 55 Second Hand Exposure: Yes Counseling given: patient declined Smoking risk assessment performed?: Yes Alcohol Intake: never Substance use type: does not use Details: Quit smoking while in-patient. Caregiver/Support person: No Household members: spouse Housing: house Communication Needs: None Do you need help understanding health information?: Never Pets and animals: No Sexually active: No Do you think of yourself as: straight/heterosexual Current gender identity: female What is your relationship status?: How often do you talk on the phone with friends or family?: once per week Do you belong to any clubs or organized social groups?: no Panel score (0-1 are the most socially isolated patients): 1 What type of physical activity do you participate in: walking Duration: < 15 minutes/day Frequency: daily Special sonia needs: No Seatbelt use: always Drive intox 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
[2022-06-24] MEDS: Levalbuterol 1.25 MG/3 ML UPD VIAL UPD (10:34)
[2022-06-24] MEDS: Ipratropium 0.5 MG/2.5 ML UPD VIAL UPD (10:35)
[2022-06-24 11:09] LABS: Abs Immature Grans 0.61 10^3/uL (0.0-0.06); HCT 45.6 % (36.0-46.0); HGB 14.1 g/dL (11.2-15.7); MCH 25.8 pg (27.0-33.0); MCHC 30.9 % (32.0-36.0); MCV 83 fL (80-95); RBC 5.47 10^6/uL (3.93-5.22); RDW-SD 45.2 fL; WBC 16.07 10^3/uL (4.4-10.8)
[2022-06-24 11:29] LABS: ALT 6 U/L (14-59); AST 39 U/L (15-37); Albumin 3.3 g/dL (3.4-5.0); Alkaline Phosphatase 287 U/L (46-116); Anion Gap 18.6 mmol/L (3-11); BUN 31 mg/dL (7-18); Bilirubin, Total 0.9 mg/dL (0.2-1.0); CO2 23.4 mmol/L (21.0-32.0); CREATININE 1.1 mg/dL (0.55-1.02); Calcium 10.7 mg/dL (8.5-10.1); Chloride 96 mmol/L (98-107); Glucose 72 mg/dL (74-106); Potassium 4.6 mmol/L (3.5-5.1); Sodium 138 mmol/L (136-145); Total Protein 8.4 g/dL (6.4-8.2); Troponin I < 50 ng/L (<or=60)
[2022-06-24 11:42] LABS: Absolute Basophil Count 0.32 10^3/uL (0.0-0.2); Absolute Eosinophil Count 0.32 10^3/uL (0.0-0.7); Absolute Lymphocyte Count 1.29 10^3/uL (1.2-3.4); Absolute Monocyte Count 1.29 10^3/uL (0.1-0.8); Absolute Neutrophil Count 12.53 10^3/uL (1.2-6.7); Bands % 3; Diff Comment Manual Differential; Metamyelocytes % 1; Myelocytes % 1; RBC Morphology Normal
[2022-06-24 11:50] LABS: Bilirubin Moderate (Negative); Blood Trace-lysed (Negative); Clarity Clear (Clear); Glucose Negative (Negative); Ketones 80 mg/dL (Negative); Leukocyte Esterase Negative (Negative); Nitrite Negative (Negative); Specific Gravity >= 1.030 (1.005-1.025); Urobilinogen 0.2 EU/dL (Up TO 0.2)
[2022-06-24 11:55] LABS: COVID-19 PCR Negative (Negative); Influenza A PCR Negative (Negative); Influenza B PCR Negative (Negative); RSV PCR Negative (Negative)
[2022-06-24 11:57] LABS: Source Nasopharynx
[2022-06-24 11:58] LABS: Bacteria Moderate HPF (Negative); Epithelial Cells Rare HPF (Negative); WBC 0-2 HPF (0-5)
[2022-06-24 11:59] LABS: C & S Indicated? Yes; Casts 0-2 Hyaline LPF (Negative); Crystals Negative HPF (Negative); Mucus Trace (Negative)
[2022-06-24] MEDS: Dexamethasone 10 MG/ML VIAL IVP (12:14)
[2022-06-24] MEDS: Electrolyte SOLUTION,ORAL 1000 ML BTL (12:16)
[2022-06-24] MEDS: Normal Saline 500 ML 1000 ML IV (14:03)
[2022-06-24 14:21] LABS: INR 1.1 (0.9-1.1); Prothrombin Time 11.2 sec (9.3-11.0)
--- NOTE | 2022-06-24 15:05 | NUR.NOTE ---
Nursing Note: patient IV line left AC infiltrated. Provider Aware.
[2022-06-24 17:38] LABS: Troponin I < 50 ng/L (<or=60)
--- NOTE | 2022-06-24 17:49 | HPE_ITS ---
Date of service: 06/24/22 Time of Service: 17:49 Assessment and Plan Assessment and plan (1) COPD (chronic obstructive pulmonary disease): Status: Acute Assessment and plan: Continue her home inhaled LABA and LAMA, give as needed DuoNeb treatments as needed. Oxygen as needed - currently no on home O2 - SPO2 here 94% on RA Prednisone Incentive Spirometer Acapella Pantoprazole Qualifiers: COPD type: emphysema Emphysema type: centrilobular Qualified Code(s): J43.2 - Centrilobular emphysema (2) Dehydration: Status: Acute Assessment and plan: Mild dehydration due to poor oral intake. BUN elevated 31 but creatinine 1.1 on initial evaluation. Normal Saline bolus orf 250 ml then 125 ml/h; encourage oral fluids (3) Generalized weakness: Status: Acute Assessment and plan: Consult physical therapy to assess fall safety risk as well as to promote exercise for reconditioning and improve her ambulatory status as well as to promote her ADL performance. 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 but also AMRIK (she is followed both by Dr. Bhandari in pulmonary clinic and by Mary Alice Reed APN in [facility].? Monitor respiratory status and oxygen saturations Qualifiers: Laterality: unspecified laterality Qualified Code(s): C34.90 - Malignant neoplasm of unspecified part of unspecified bronchus or lung (6) Essential hypertension: Status: Chronic Assessment and plan: Stable - continue home medication Monitor (7) Atherosclerotic cardiovascular disease: Status: Acute Assessment and plan: Cath 2020 last echo 06/01/2022 Conclusion Normal left ventricular wall thickness and chamber size.? Estimated ejection fraction is 55 to 60%.? Wall motion is normal Right ventricle is not well visualized Both atria are normal in size The aortic valve is sclerotic and trileaflet without stenosis or regurgitation Mild mitral annular calcification with trace to mild regurgitation Normal tricuspid valve with trace regurgitation Telemetry - HR >100s - goal <100 EKG Sinus Tachycardia, occasional PVC - troponins negative (8) History of fracture of rib: Status: Acute Assessment and plan: Noted, on CT on last admission to be partially healed; today they are healed. Lidoderm patches for pain control, tylenol Physical therapy consultation to assess fall risk and to promote mobility and work on her generalized weakness. (9) DVT prophylaxis: Status: Acute Assessment and plan: Enoxaparin (10) Discharge planning issues: Status: Acute Assessment and plan: Home v HH v SNF; second admission for dehydration in 30d DNR/DNI Discussed with Dr Solo. 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 but also AMRIK (she is followed both by Dr. Bhandari in pulmonary clinic and by Mary Alice Reed AP[facility] in [facility], presented to the [facility] emergency department for evaluation of generalized fatigue, cough and diarrhea over the past several days. She had tachypneic and was tachycardic w/ hr 128 bmp and RR 20, no fever and no hypotension. She was admitted to [facility] one month ago for increasing dyspnea on exertion and dizziness with a sensation of increased heart rate and nausea. She was seen in the ER on 05/[address] that showed left sided 5th and 8th ribs incompletely healed fractures. Today's CT they are healed. She was prescribed lidocaine patches and ibuprofen. Labs revealed WBC 16.07; H&H 14/45; K 4.6; Carbon dioxide 23.4; BUN 31 and Creatineine 1.1, glucose 72. Negative troponin's x 2. Negative procalcitonin. She was given IV fluids and was unable to ambulate safely with physical therapy. She is placed on the medical floor for observation. Review of Systems All systems reviewed & are unremarkable except as noted in HPI and below PFSH All Active Problems (Updated 06/24/22 @ 19:26 by Parris Sage NP) Nausea (Acute) DVT prophylaxis (Acute) Discharge planning issues (Acute) Dehydration (Acute) Carotid artery stenosis (Chronic) right 15-49% in 2020; known left ICA occlusion Essential hypertension (Chronic 06/24/13) Hyperlipidemia (Chronic) Peripheral vascular disease (Chronic) s/p femoral stent at [facility] [place] Tubular adenoma (Chronic 03/07/16) Colonoscopy 03/07/16 - 5 yr plan; colonoscopy 02/2022 at [facility] [place]; tubular adenoma and tubulovillous adenomas Sciatica (Acute) COPD (chronic obstructive pulmonary disease) (Acute) Atherosclerotic cardiovascular disease (Acute) cardiac cath in 2020 with nonobstructive disease Left lower lobe pulmonary nodule (Acute) Generalized weakness (Acute) Dizziness (Acute) History of fracture of rib (Acute) Non-small cell carcinoma of lung (Chronic ~05/2019) Biopsied at [facility]; followed by [facility] pulm and [facility] oncology. 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 October 05, 2018 while in-patient. Has not smoked since. 03/20/19 - Admits to 1 cigaret 1-2 per week. 12/19/19 - smoking 3-4 /day -01/2020 - QUIT again 03/16/21 - Reports NONE since 04/2020 Hx of non-ST elevation myocardial infarction (NSTEMI) (2019) in the setting of pneumothorax Pneumothorax on left Initial 01/02/20 LEFT Repeat spont. LEFT pneumothorax - 05/01/20 Repeat spont. pneumothorax (#3) LEFT 01/2021 Polyp of colon Primary malignant neoplasm of cervix s/p hyst Ruptured emphysematous bleb of lung Squamous cell carcinoma of skin UPJ obstruction, acquired chronic bilateral hydronephrosis on CT Surgical History (Updated 06/01/22 @ 08:07 by Candelaria Pereira MD) Colonoscopy - MAC (03/07/16) Dr Parisi excision CIS R buttock 2008 History of discectomy History of excision of mass History of lung biopsy (~2015) S/P hysterectomy fibroid uterus ovaries remain Status post breast biopsy Status post carpal tunnel release Status post cholecystectomy Family History Mother , 65 Cancer Sister , 65 Breast cancer Father , 75 Heart disease Sister Cancer Sister No problems noted. Brother Bone cancer Lung cancer Daughter No problems noted. Daughter No problems noted. Son No problems noted. Brother No problems noted. Maternal Grandfather No problems noted. Paternal Grandfather No problems noted. Maternal Grandmother No problems noted. Paternal Grandmother No problems noted. Social History Smoking/Tobacco Use Status: Former Tobacco Use tobacco type: cigarettes Quit Date: 10/05/18 Tobacco: How many years used: 55 Second Hand Exposure: Yes Counseling given: patient declined Smoking risk assessment performed?: Yes Alcohol Intake: never Substance use type: does not use Details: Quit smoking while in-patient. Caregiver/Support person: No Household members: spouse Housing: house Communication Needs: None Do you need help understanding health information?: Never Pets and animals: No Sexually active: No Do you think of yourself as: straight/heterosexual Current gender identity: female What is your relationship status?: How often do you talk on the phone with friends or family?: once per week Do you belong to any clubs or organized social groups?: no Panel score (0-1 are the most socially isolated patients): 1 What type of physical activity do you participate in: walking Duration: < 15 minutes/day Frequency: daily Special sonia needs: No Seatbelt use: always Drive intox 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 Do you feel safe at home: Yes Do you feel safe in your relationship?: Yes Meds Allergies and Home Medications Allergies Allergy/AdvReac Type Severity Reaction Status Date / Time Tetanus Vaccines and Toxoid Allergy Mild LOCAL Verified 06/24/22 10:50 SWELLING Home Medications Medication Instructions Recorded Confirmed Type inhalational spacing device (Space ##1 06/09/16 06/24/22 History Chamber Plus) acetaminophen 325 mg tablet 325 mg PO DAILY PRN 04/08/21 06/24/22 History (Tylenol) ipratropium 0.5 mg-albuterol 3 mg 3 ml inhalation QID PRN 05/07/21 06/24/22 Rx (2.5 mg base)/3 mL nebulization wheezing/COPD J43.2 #90 mL soln albuterol sulfate 90 mcg/actuation 2 puff inhalation Q4H PRN ##2 11/18/21 06/24/22 Rx aerosol inhaler (ProAir HFA) budesonide 160 mcg-glycopyr 9 See Rx Instructions .Route 03/15/22 06/24/22 Rx mcg-formot 4.8 mcg/actuation HFA .COMPLEX #10.7 grams inhaler (Breztri Aerosphere) lidocaine 5 % topical patch 2 patch topical HS #0 ea 05/31/22 06/24/22 Rx Exam Narrative Exam Narrative: Lianna is pale, awake and alert, sitting in a chair stating she does not want to eat, the smell of food makes her nauseated. She is speaking in full sentences, her oxygen saturation on room air is 94% via ear probe. Nursing noted her to have HR > 130's. She was moved to the bed. EKG done - sinus tach, no ectopy. Placed on telemetry - sinus tach. Lungs diminished throughout but clear. No ed leland. A VBG ordered. Blood pressures are normal, RR 16 Const General: cooperative, comfortable and no acute distress Orientation: alert, awake and oriented x3 HENMT Head: normal to inspection Ears: hearing grossly normal bilaterally and external ears normal Face and sinus: normal facial exam Mouth: moist mucous membranes abnormal (very dry) Throat: posterior oropharynx normal Other: Very dry Eyes General: appearance normal, both eyes and all related structures Pupils: PERRL EOM: EOM intact bilaterally Neck Neck: normal visual inspection and No submandibular swelling Lymphatic: no lymphadenopathy noted Chest Chest: normal inspection of the chest and no tenderness Resp Effort & Inspection: normal respiratory effort, able to speak in complete sentences, cough Quality of cough: dry, pursed lip breathing (occasionally noted), no retractions and not tachypneic Auscultation: diminished lung sounds bilaterally throughout Cardio Rate: tachycardic (100-130s) Rhythm: regular rhythm Heart Sounds: S1 normal and S2 normal GI Inspection: normal to inspection Palpation: soft, not firm, not rigid and nontender Auscultation: normal bowel sounds Back/Spine/Pelvis Thoracic/Lumbar Spine: thoracic and lumbar spine normal to inspection Pelvis: no pain with anterior-posterior compression Skin General skin exam: no rashes or lesions noted Neuro General: patient alert, patient awake, patient oriented x3 and moves all extremities Cognition: normal cognition Speech: speech normal Sensory Exam: no sensory deficits noted Extrem General: normal to inspection, full ROM, capillary refill normal, no calf tenderness bilaterally and no edema Psych Appearance: grossly normal Mental Status: mental status grossly normal Speech and Movement: speech and movement normal Affect: normal affect Results Labs Result diagrams: 06/24/22 10:59 06/24/22 10:59 Labs: Laboratory Results - last 24 hr 06/24/22 06/24/22 06/24/22 10:59 10:59 10:59 WBC 16.07 H RBC 5.47 H Hgb 14.1 Hct 45.6 MCV 83 MCH 25.8 L MCHC 30.9 L RDW 15.0 H Plt Count MPV Immature Gran % See Differential Neutrophils % 75.0 Band Neutrophils % 3 Lymphocytes % 8.0 Monocytes % 8.0 Eosinophils % 2.0 Basophils % 2.0 Metamyelocytes % 1 Myelocytes % 1 Nucleated RBC % 0.0 Absolute Neutrophils 12.53 H Absolute Lymphocytes 1.29 Absolute Monocytes 1.29 H Absolute Eosinophils 0.32 Absolute Basophils 0.32 H RBC Morphology Normal PT Cancelled INR Cancelled APTT Cancelled Sodium 138 Potassium 4.6 Chloride 96 L Carbon Dioxide 23.4 Anion Gap 18.6 H BUN 31 H Creatinine 1.1 H Est GFR (CKD-EPI 2020) 52.40 Glucose 72 L Calcium 10.7 H Total Bilirubin 0.9 AST 39 H ALT 6 L Alkaline Phosphatase 287 H Troponin I < 50 Total Protein 8.4 H Albumin 3.3 L Urine Color Urine Clarity Urine pH Ur Specific Trego Urine Protein Urine Ketones Urine Blood Urine Nitrite Urine Bilirubin Urine Urobilinogen Ur Leukocyte Esterase Urine RBC Urine WBC Ur Epithelial Cells Urine Crystals Urine Bacteria Urine Casts Urine Mucus Ur Culture Indicated? Urine Glucose COVID-19 Source SARS-CoV-2 (PCR) Influenza Type A (PCR) Influenza Type B (PCR) RSV (PCR) 06/24/22 06/24/22 06/24/22 11:15 11:40 13:55 WBC RBC Hgb Hct MCV MCH MCHC RDW Plt Count MPV Immature Gran % Neutrophils % Band Neutrophils % Lymphocytes % Monocytes % Eosinophils % Basophils % Metamyelocytes % Myelocytes % Nucleated RBC % Absolute Neutrophils Absolute Lymphocytes Absolute Monocytes Absolute Eosinophils Absolute Basophils RBC Morphology PT 11.2 H INR 1.1 APTT 26.0 Sodium Potassium Chloride Carbon Dioxide Anion Gap BUN Creatinine Est GFR (CKD-EPI 2020) Glucose Calcium Total Bilirubin AST ALT Alkaline Phosphatase Troponin I Total Protein Albumin Urine Color Yellow Urine Clarity Clear Urine pH 6.0 Ur Specific [place] >= 1.030 H Urine Protein 30 H Urine Ketones 80 H Urine Blood Trace-lysed H Urine Nitrite Negative Urine Bilirubin Moderate H Urine Urobilinogen 0.2 Ur Leukocyte Esterase Negative Urine RBC 3-5 H Urine WBC 0-2 Ur Epithelial Cells Rare Urine Crystals Negative Urine Bacteria Moderate Urine Casts 0-2 Hyaline Urine Mucus Trace Ur Culture Indicated? Yes Urine Glucose Negative COVID-19 Source Nasopharynx SARS-CoV-2 (PCR) Negative Influenza Type A (PCR) Negative Influenza Type B (PCR) Negative RSV (PCR) Negative 06/24/22 17:13 WBC RBC Hgb Hct MCV MCH MCHC RDW Plt Count MPV Immature Gran % Neutrophils % Band Neutrophils % Lymphocytes % Monocytes % Eosinophils % Basophils % Metamyelocytes % Myelocytes % Nucleated RBC % Absolute Neutrophils Absolute Lymphocytes Absolute Monocytes Absolute Eosinophils Absolute Basophils RBC Morphology PT INR APTT Sodium Potassium Chloride Carbon Dioxide Anion Gap BUN Creatinine Est GFR (CKD-EPI 2020) Glucose Calcium Total Bilirubin AST ALT Alkaline Phosphatase Troponin I < 50 Total Protein Albumin Urine Color Urine Clarity Urine pH Ur Specific Trego Urine Protein Urine Ketones Urine Blood Urine Nitrite Urine Bilirubin Urine Urobilinogen Ur Leukocyte Esterase Urine RBC Urine WBC Ur Epithelial Cells Urine Crystals Urine Bacteria Urine Casts Urine Mucus Ur Culture Indicated? Urine Glucose COVID-19 Source SARS-CoV-2 (PCR) Influenza Type A (PCR) Influenza Type B (PCR) RSV (PCR) Last Vital Signs Pulse 108 H 06/24/22 17:15 Resp 24 06/24/22 17:15 BP 126/64 06/24/22 17:15 Pulse Ox 100 06/24/22 10:07
--- NOTE | 2022-06-24 18:00 | RT.EKG_ITS ---
APPROVED REPORT Exam: Resting ECG Reason for Exam: Tachycardia Patient Location: I HR:106 bpm ECG Measurements Heart Rate 106 AXIS MN 112 P 85 QRSd 82 QRS 86 QT 317 T 37 QTc 421 Conclusion Sinus tachycardia...rate> 99 Borderline right axis deviation...QRS axis ( 81, 90)
[2022-06-24] MEDS: Normal Saline Flush 10 ML SYR IVP ×3 (18:23→21:28)
[2022-06-24] MEDS: Ondansetron 4 MG/2 ML VIAL IVP (18:23)
[2022-06-24] MEDS: Enoxaparin 40 MG/0.4 ML SYR SC (18:24)
[2022-06-24] MEDS: Lactated Ringers 250 ML IV (18:27)
[2022-06-24 19:28] LABS: BE (Venous) -11 mmol/L (-2-3); HCO3 (Venous) 15 mmol/L (23-28); O2 Sat (Venous) 85 %; TCO2 (Venous) 14 mmol/L (24-29); pCO2 (Venous) 30 mmHg (41-51); pH (Venous) 7.31 (7.31-7.41); pO2 (Venous) 52 mmHg
[2022-06-24 20:01] LABS: Lab Add On Test DONE
[2022-06-24 20:03] LABS: Lactate 2.5 mmol/L (0.6-1.4)
[2022-06-24 20:21] LABS: Lab Add On Test DONE
[2022-06-24] MEDS: Omnipaque 350 MG/ML 100 ML BTL IJ (20:39)
[2022-06-24] MEDS: Normal Saline - Diluent 50 ML VIAL IJ (20:39)
[2022-06-24 20:40] LABS: NT-proBNP 1191 pg/mL (<300)
[2022-06-24 20:57] LABS: Procalcitonin 0.2 ng/mL
--- NOTE | 2022-06-24 21:07 | DI.VRAD_ITS ---
PROCEDURE INFORMATION: Exam: CTA Chest With Contrast Exam date and time: 06/24/2022 8:29 PM Age: 77 years old Clinical indication: Other: Shortness of breath, h/o malignancy, ? lung abscess TECHNIQUE: Imaging protocol: Computed tomographic angiography of the chest with contrast. 3D rendering (Not supervised by radiologist): MIP and/or 3D reconstructed images were created by the technologist. Radiation optimization: All CT scans at this facility use at least one of these dose optimization techniques: automated exposure control; mA and/or kV adjustment per patient size (includes targeted exams where dose is matched to clinical indication); or iterative reconstruction. Contrast material: OMNI 350; Contrast volume: 100 ml; Contrast route: INTRAVENOUS (IV); COMPARISON: CT CHEST PE CTA 05/28/2022 1:30 PM FINDINGS: Pulmonary arteries: No evidence of pulmonary embolus to the segmental level. Aorta: No aneurysm of the aorta. No dissection of the aorta. Lungs: Moderate panlobular emphysematous changes. Spiculated nodule in the left lower lobe 8.6 mm. This had a small cavity in it on the prior study. . No definite change in size but it has been less than a month since the prior study. Pleural spaces: Unremarkable. No pneumothorax. No pleural effusion. Heart: Unremarkable. No cardiomegaly. No pericardial effusion. Lymph nodes: Unremarkable. No enlarged lymph nodes. Gallbladder and bile ducts: Cholecystectomy Adrenal glands: Prominent left adrenal gland. Kidneys and ureters: Dilatation of the right collecting system. Right extrarenal pelvis measures 2.4 cm. Bones/joints: Unremarkable. No acute fracture. Soft tissues: Unremarkable. IMPRESSION: 1. No evidence of pulmonary embolus to the segmental level. 2. No aneurysm of the aorta. 3. No dissection of the aorta. 4. Spiculated nodule in the left lower lobe 8.6 mm. This had a small cavity in it on the prior study. . No definite change in size but it has been less than a month since the prior study. 5. Prominent left adrenal gland. 6. Dilatation of the right collecting system. Right extrarenal pelvis measures 2.4 cm. Dictated and Authenticated by: Sole Sotomayor MD. Ordering:NICHOLAS Finley MD
[2022-06-24] MEDS: guaiFENesin 600 MG TABCR PO (21:27)
[2022-06-24] MEDS: Pantoprazole 40 MG TABCR PO (21:27)
[2022-06-24] MEDS: Lactated Ringers 1,000 ML 125 ML IV (21:30)
[2022-06-25] VITALS (19 sets, daily range): BP systolic 100–128; BP diastolic 60–71; PULSE 65–110; RESP 1–20; TEMP 36.3–37; O2SAT 84–98
[2022-06-25] MEDS: Ipratropium 0.5 MG/2.5 ML UPD VIAL UPD ×4 (00:16→17:44)
[2022-06-25] MEDS: guaiFENesin 600 MG TABCR PO ×2 (08:01→20:05)
[2022-06-25] MEDS: predniSONE 20 MG TAB 40 MG PO (08:01)
[2022-06-25] MEDS: Pantoprazole 40 MG TABCR PO ×2 (08:01→20:05)
--- NOTE | 2022-06-25 09:21 | PDOC.CMIN ---
- If Service Date Differs Date of service: 06/25/22 Time of Service: 09:21 Care Management Initial Assess REASON FOR HOSPITALIZATION:: COPD PAST MEDICAL HISTORY/PAST SURGICAL HISTORY:: All Active Problems (Updated 06/24/22 @ 19:26 by Parris Sage NP). Nausea (Acute). DVT prophylaxis (Acute). Discharge planning issues (Acute). Dehydration (Acute). Carotid artery stenosis (Chronic). right 15-49% in 2019; known left ICA occlusion. Essential hypertension (Chronic 06/24/13). Hyperlipidemia (Chronic). Peripheral vascular disease (Chronic). [place] [facility]. Tubular adenoma (Chronic 03/07/16). Colonoscopy 03/07/16 - 5 yr plan; colon[place]/2022 [place] [facility]; tubular adenoma and tubulovillous adenomas. Sciatica (Acute). COPD (chronic obstructive pulmonary disease) (Acute). Atherosclerotic cardiovascular disease (Acute). cardiac cath in 2020 with nonobstructive disease. Left lower lobe pulmonary nodule (Acute). Generalized weakness (Acute). Dizziness (Acute). History of fracture of rib (Acute). Non-small cell carcinoma of lung (Chronic ~05/2019). [facility]ops[facility]; followed by [facility] pulm and [facility] [place]. Weight loss, abnormal (Acute). COPD exacerbation (Acute). Acute dehydration (Acute). Medical History (Updated 06/24/22 @ 19:26 by Parris Sage NP). Abnormal PET scan of colon. colonoscopy with tubular adenoma and tubulovillous adenoma 02/2022. 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 left occipital; no residual. Carpal tunnel syndrome. right. Diverticulosis of colon without diverticulitis. History of tobacco use. Quit approx. October 05, 2018 while in-patient. Has not smoked since. 03/20/19 - Admits to 1 cigaret 1-2 per week. 12/19/19 - smoking 3-4 /day. -01/2020 - QUIT again. 03/16/21 - Reports NONE since 04/2020. Hx of non-ST elevation myocardial infarction (NSTEMI) (2019). in the setting of pneumothorax. Pneumothorax on left. Initial 01/02/20 LEFT. Repeat spont. LEFT pneumothorax - 05/01/20. Repeat spont. pneumothorax (#3) LEFT 01/2021. Polyp of colon. Primary malignant neoplasm of cervix. s/p hyst. Ruptured emphysematous bleb of lung. Squamous cell carcinoma. of skin. UPJ obstruction, acquired. chronic bilateral hydronephrosis on CT. Surgical History (Updated 06/01/22 @ 08:07 by Candelaria Pereira MD). Colonoscopy - [facility] (03/07/16). Dr Parisi. excision CIS R buttock 2008. History of discectomy. History of excision of mass. History of lung biopsy (~2015). S/P hysterectomy. fibroid uterus ovaries remain. Status post breast biopsy. Status post carpal tunnel release. Status post cholecystectomy PREVIOUS FUNCTIONAL STATUS/SOCIAL/FAMILY SUPPORTS:: Lianna lives in [place] with her , Eloy. They relocated to [place] from [place] in the , after their children were grown. Eloy has 2 children and Lianna has 3 and they are all still living in [place] They have five grandchildren. Due to the distance they do not get to see their children and grandchildren very often. 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 She receives home health nursing and PT services. Lianna has become very weak over the past few weeks and is no longer able to ambulate without assistance or to independently care for herself. CURRENT FUNCTIONAL STATUS:: Lianna was sitting up in a chair when CM met with her. She was very pleasant and engaged easily with CM. Lianna shared that she has been declining over the past few weeks to months. She stated that she has no appetite and has not been eating. She has lost weight and is much weaker than her baseline. Lianna stated that she can't even walk to the bathroom without her 's help. Her hospitalist provider talked to her about going to rehab. She is opposed to the idea but agreed to think about it and make a decision by tomorrow. When CM met with her, the conversation about short term rehab continued. Lianna and her have agreed to have CM send referrals. CM did explain that beds in our immediate area are scarce and she may need to be further from home. She verbalized understanding and stated that she realizes she has no choice. She cannot walk and cannot live like this at home. CM also discussed Palliative Care with Lianna and she is agreeable to meeting with as Palliative [facility] provider. ADVANCE DIRECTIVES:: no AD on file but has a COLST Has patient been provided with info about the portal/API?: Yes Did the patient sign up for the portal?: No CODE STATUS:: DNR/DNI INSURANCE COVERAGE / FINANCIAL ISSUES:: Medicare. [place] CURRENT HOME/COMMUNITY SERVICES/EQUIPMENT:: has a cane and a walker but does not use consistently PRIMARY CARE PHYSICIAN:: Candelaria Pereira POTENTIAL DISCHARGE NEEDS:: follow up appointments PATIENT/FAMILY EDUCATION NEEDS:: Review of discharge instructions, medications, activity, limitations, follow up plan, Ask Me Three TRANSPORTATION:: via private vehicle with family PLAN:: Anticipate Lianna will transfer to a SNF for short term rehab prior to returning home.. She will follow up with the facility providers and plan of care. Transportation will be determined by final disposition. CM will continue to follow and support Lianna and her discharge planning needs.
--- NOTE | 2022-06-25 09:46 | PGE_ITS ---
Date of Service Date of service: 06/25/22 Time of Service: 09:46 Assessment and Plan Assessment and plan (1) COPD (chronic obstructive pulmonary disease): Status: Acute Assessment and plan: Continue her home inhaled LABA and LAMA, give as needed DuoNeb treatments as needed. Oxygen as needed - currently not on home O2 - SPO2 here 94% on RA Prednisone Incentive Spirometer Acapella Pantoprazole Qualifiers: COPD type: emphysema Emphysema type: centrilobular Qualified Code(s): J43.2 - Centrilobular emphysema (2) Dehydration: Status: Acute Assessment and plan: Mild dehydration due to poor oral intake. BUN elevated 28 but creatinine 1.1 on initial evaluation. Normal Saline 125 ml/h; encourage oral fluids (3) Generalized weakness: Status: Acute Assessment and plan: Consult physical therapy to assess fall safety risk as well as to promote exercise for reconditioning and improve her ambulatory status as well as to promote her ADL performance. 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 but also AMRIK (she is followed both by Dr. Bhandari in pulmonary clinic and by [facility] in [facility].? Monitor respiratory status and oxygen saturations Qualifiers: Laterality: unspecified laterality Qualified Code(s): C34.90 - Malignant neoplasm of unspecified part of unspecified bronchus or lung (6) Essential hypertension: Status: Chronic Assessment and plan: Stable - continue home medication Monitor (7) Atherosclerotic cardiovascular disease: Status: Acute Assessment and plan: Cath 2020 last echo 06/01/2022 Conclusion Normal left ventricular wall thickness and chamber size.? Estimated ejection f raction is 55 to 60%.? Wall motion is normal Right ventricle is not well visualized Both atria are normal in size The aortic valve is sclerotic and trileaflet without stenosis or regurgitation Mild mitral annular calcification with trace to mild regurgitation Normal tricuspid valve with trace regurgitation Telemetry - HR >100s - goal <100 EKG Sinus Tachycardia, occasional PVC - troponins negative (8) History of fracture of rib: Status: Acute Assessment and plan: Noted, on CT on last admission to be partially healed; today they are healed. Lidoderm patches for pain control, tylenol Physical therapy consultation to assess fall risk and to promote mobility and work on her generalized weakness. (9) DVT prophylaxis: Status: Acute Assessment and plan: Enoxaparin (10) Discharge planning issues: Status: Acute Assessment and plan: SNF; second admission for dehydration in 30d DNR/DNI Discussed with Dr Holland Subjective Subjective Patient reports: no new complaints, feels better, tolerating a regular diet, bowel movement and afebrile; denies diarrhea, nausea or vomiting Exam Narrative Exam Narrative: Patient is awake sitting in the chair pale, awake, alert, conversant - able to speak in full sentences, she has oxygen on, her is in the room. She states she is not interested in going to a rehab facility. She worked with PT, and afterward we discussed her options again and she thinks she would like to go to rehab for a few weeks because she is not strong enough to walk 6 feet by herself. Const General: cooperative, comfortable and no acute distress Orientation: alert, awake and oriented x3 HENMT Head: normal to inspection Ears: hearing grossly normal bilaterally and external ears normal Face and sinus: normal facial exam Mouth: moist mucous membranes abnormal (very dry) Throat: posterior oropharynx normal Other: Very dry Eyes General: appearance normal, both eyes and all related structures Pupils: PERRL EOM: EOM intact bilaterally Neck Neck: normal visual inspection and No submandibular swelling Lymphatic: no lymphadenopathy noted Chest Chest: normal inspection of the chest and no tenderness Resp Effort & Inspection: normal respiratory effort, able to speak in complete sentences, cough Quality of cough: dry, pursed lip breathing (occasionally noted), no retractions and not tachypneic Auscultation: diminished lung sounds bilaterally throughout Cardio Rate: tachycardic (100-130s) Rhythm: regular rhythm Heart Sounds: S1 normal and S2 normal GI Inspection: normal to inspection Palpation: soft, not firm, not rigid and nontender Auscultation: normal bowel sounds Back/Spine/Pelvis Thoracic/Lumbar Spine: thoracic and lumbar spine normal to inspection Pelvis: no pain with anterior-posterior compression Skin General skin exam: no rashes or lesions noted Neuro General: patient alert, patient awake, patient oriented x3 and moves all extremities Cognition: normal cognition Speech: speech normal Sensory Exam: no sensory deficits noted Extrem General: normal to inspection, full ROM, capillary refill normal, no calf tenderness bilaterally and no edema Psych Appearance: grossly normal Mental Status: mental status grossly normal Speech and Movement: speech and movement normal Affect: normal affect Objective Last Vital Signs Temp 36.7 C 06/25/22 07:50 Pulse 92 H 06/25/22 07:50 Resp 18 06/25/22 07:50 BP 100/60 06/25/22 07:50 Pulse Ox 96 06/25/22 07:50 Laboratory Results - last 24 hr 06/24/22 06/24/22 06/24/22 10:59 10:59 10:59 WBC 16.07 H RBC 5.47 H Hgb 14.1 Hct 45.6 MCV 83 MCH 25.8 L MCHC 30.9 L RDW 15.0 H Plt Count MPV Immature Gran % See Differential Neutrophils % 75.0 Band Neutrophils % 3 Lymphocytes % 8.0 Monocytes % 8.0 Eosinophils % 2.0 Basophils % 2.0 Metamyelocytes % 1 Myelocytes % 1 Nucleated RBC % 0.0 Absolute Neutrophils 12.53 H Absolute Lymphocytes 1.29 Absolute Monocytes 1.29 H Absolute Eosinophils 0.32 Absolute Basophils 0.32 H RBC Morphology Normal PT Cancelled INR Cancelled APTT Cancelled VBG pH VBG pCO2 VBG pO2 VBG HCO3 VBG Total CO2 VBG O2 Saturation VBG Base Excess VBG Lactate Sodium 138 Potassium 4.6 Chloride 96 L Carbon Dioxide 23.4 Anion Gap 18.6 H BUN 31 H Creatinine 1.1 H Est GFR (CKD-EPI 2020) 52.40 Glucose 72 L Calcium 10.7 H Total Bilirubin 0.9 AST 39 H ALT 6 L Alkaline Phosphatase 287 H Troponin I < 50 NT-Pro-B Natriuret Pep Total Protein 8.4 H Albumin 3.3 L Procalcitonin Urine Color Urine Clarity Urine pH Ur Specific [place] Urine Protein Urine Ketones Urine Blood Urine Nitrite Urine Bilirubin Urine Urobilinogen Ur Leukocyte Esterase Urine RBC Urine WBC Ur Epithelial Cells Urine Crystals Urine Bacteria Urine Casts Urine Mucus Ur Culture Indicated? Urine Glucose COVID-19 Source SARS-CoV-2 (PCR) Influenza Type A (PCR) Influenza Type B (PCR) RSV (PCR) Add-On Test Request 06/24/22 06/24/22 06/24/22 11:15 11:40 13:55 WBC RBC Hgb Hct MCV MCH MCHC RDW Plt Count MPV Immature Gran % Neutrophils % Band Neutrophils % Lymphocytes % Monocytes % Eosinophils % Basophils % Metamyelocytes % Myelocytes % Nucleated RBC % Absolute Neutrophils Absolute Lymphocytes Absolute Monocytes Absolute Eosinophils Absolute Basophils RBC Morphology PT 11.2 H INR 1.1 APTT 26.0 VBG pH VBG pCO2 VBG pO2 VBG HCO3 VBG Total CO2 VBG O2 Saturation VBG Base Excess VBG Lactate Sodium Potassium Chloride Carbon Dioxide Anion Gap BUN Creatinine Est GFR (CKD-EPI 2020) Glucose Calcium Total Bilirubin AST ALT Alkaline Phosphatase Troponin I NT-Pro-B Natriuret Pep Total Protein Albumin Procalcitonin Urine Color Yellow Urine Clarity Clear Urine pH 6.0 Ur Specific [place] >= 1.030 H Urine Protein 30 H Urine Ketones 80 H Urine Blood Trace-lysed H Urine Nitrite Negative Urine Bilirubin Moderate H Urine Urobilinogen 0.2 Ur Leukocyte Esterase Negative Urine RBC 3-5 H Urine WBC 0-2 Ur Epithelial Cells Rare Urine Crystals Negative Urine Bacteria Moderate Urine Casts 0-2 Hyaline Urine Mucus Trace Ur Culture Indicated? Yes Urine Glucose Negative COVID-19 Source Nasopharynx SARS-CoV-2 (PCR) Negative Influenza Type A (PCR) Negative Influenza Type B (PCR) Negative RSV (PCR) Negative Add-On Test Request 06/24/22 06/24/22 06/24/22 17:13 17:13 17:13 WBC RBC Hgb Hct MCV MCH MCHC RDW Plt Count MPV Immature Gran % Neutrophils % Band Neutrophils % Lymphocytes % Monocytes % Eosinophils % Basophils % Metamyelocytes % Myelocytes % Nucleated RBC % Absolute Neutrophils Absolute Lymphocytes Absolute Monocytes Absolute Eosinophils Absolute Basophils RBC Morphology PT INR APTT VBG pH VBG pCO2 VBG pO2 VBG HCO3 VBG Total CO2 VBG O2 Saturation VBG Base Excess VBG Lactate Sodium Potassium Chloride Carbon Dioxide Anion Gap BUN Creatinine Est GFR (CKD-EPI 2020) Glucose Calcium Total Bilirubin AST ALT Alkaline Phosphatase Troponin I < 50 NT-Pro-B Natriuret Pep Total Protein Albumin Procalcitonin 0.2 Urine Color Urine Clarity Urine pH Ur Specific [place] Urine Protein Urine Ketones Urine Blood Urine Nitrite Urine Bilirubin Urine Urobilinogen Ur Leukocyte Esterase Urine RBC Urine WBC Ur Epithelial Cells Urine Crystals Urine Bacteria Urine Casts Urine Mucus Ur Culture Indicated? Urine Glucose COVID-19 Source SARS-CoV-2 (PCR) Influenza Type A (PCR) Influenza Type B (PCR) RSV (PCR) Add-On Test Request DONE 06/24/22 06/24/22 06/24/22 17:13 19:20 19:20 WBC RBC Hgb Hct MCV MCH MCHC RDW Plt Count MPV Immature Gran % Neutrophils % Band Neutrophils % Lymphocytes % Monocytes % Eosinophils % Basophils % Metamyelocytes % Myelocytes % Nucleated RBC % Absolute Neutrophils Absolute Lymphocytes Absolute Monocytes Absolute Eosinophils Absolute Basophils RBC Morphology PT INR APTT VBG pH 7.31 VBG pCO2 30 L VBG pO2 52 VBG HCO3 15 L VBG Total CO2 14 L VBG O2 Saturation 85 VBG Base Excess -11 L VBG Lactate Sodium Potassium Chloride Carbon Dioxide Anion Gap BUN Creatinine Est GFR (CKD-EPI 2020) Glucose Calcium Total Bilirubin AST ALT Alkaline Phosphatase Troponin I NT-Pro-B Natriuret Pep 1191 H Total Protein Albumin Procalcitonin Urine Color Urine Clarity Urine pH Ur Specific [place] Urine Protein Urine Ketones Urine Blood Urine Nitrite Urine Bilirubin Urine Urobilinogen Ur Leukocyte Esterase Urine RBC Urine WBC Ur Epithelial Cells Urine Crystals Urine Bacteria Urine Casts Urine Mucus Ur Culture Indicated? Urine Glucose COVID-19 Source SARS-CoV-2 (PCR) Influenza Type A (PCR) Influenza Type B (PCR) RSV (PCR) Add-On Test Request DONE 06/24/22 19:20 WBC RBC Hgb Hct MCV MCH MCHC RDW Plt Count MPV Immature Gran % Neutrophils % Band Neutrophils % Lymphocytes % Monocytes % Eosinophils % Basophils % Metamyelocytes % Myelocytes % Nucleated RBC % Absolute Neutrophils Absolute Lymphocytes Absolute Monocytes Absolute Eosinophils Absolute Basophils RBC Morphology PT INR APTT VBG pH VBG pCO2 VBG pO2 VBG HCO3 VBG Total CO2 VBG O2 Saturation VBG Base Excess VBG Lactate 2.5 H* Sodium Potassium Chloride Carbon Dioxide Anion Gap BUN Creatinine Est GFR (CKD-EPI 2020) Glucose Calcium Total Bilirubin AST ALT Alkaline Phosphatase Troponin I NT-Pro-B Natriuret Pep Total Protein Albumin Procalcitonin Urine Color Urine Clarity Urine pH Ur Specific [place] Urine Protein Urine Ketones Urine Blood Urine Nitrite Urine Bilirubin Urine Urobilinogen Ur Leukocyte Esterase Urine RBC Urine WBC Ur Epithelial Cells Urine Crystals Urine Bacteria Urine Casts Urine Mucus Ur Culture Indicated? Urine Glucose COVID-19 Source SARS-CoV-2 (PCR) Influenza Type A (PCR) Influenza Type B (PCR) RSV (PCR) Add-On Test Request
[2022-06-25 11:18] LABS: Abs Immature Grans 0.45 10^3/uL (0.0-0.06); Absolute Basophil Count 0.06 10^3/uL (0.0-0.2); Absolute Eosinophil Count 0.06 10^3/uL (0.0-0.7); Basophils % 0.4; Eosinophils % 0.4; HCT 38.5 % (36.0-46.0); Immature Grans % 3.1; Lymphocytes % 5.3; MCH 26.1 pg (27.0-33.0); MCHC 31.2 % (32.0-36.0); MCV 84 fL (80-95); MPV 13.1 fL (8.0-11.0); Monocytes % 5.5; Neutrophils % 85.3; Platelet Count 146 10^3/uL (130-400); RBC 4.59 10^6/uL (3.93-5.22); RDW-SD 45.7 fL; WBC 14.61 10^3/uL (4.4-10.8)
[2022-06-25 11:19] LABS: Absolute Lymphocyte Count 0.77 10^3/uL (1.2-3.4); Absolute Neutrophil Count 12.46 10^3/uL (1.2-6.7)
[2022-06-25 11:25] LABS: Anion Gap 13.8 mmol/L (3-11); BUN 28 mg/dL (7-18); CO2 22.2 mmol/L (21.0-32.0); CREATININE 1.1 mg/dL (0.55-1.02); Calcium 9.8 mg/dL (8.5-10.1); Chloride 98 mmol/L (98-107); Glucose 102 mg/dL (74-106); Magnesium 1.5 mg/dL (1.8-2.4); Potassium 4.5 mmol/L (3.5-5.1); Sodium 134 mmol/L (136-145)
[2022-06-25] MEDS: Levalbuterol 1.25 MG/3 ML UPD VIAL UPD ×2 (12:06→17:44)
[2022-06-25] MEDS: MAGNESIUM SULFATE 2 GM/50 ML BAG IVPB (12:25)
[2022-06-25] MEDS: Fosfomycin Tromethamine 3 GM PACKET PO (15:59)
[2022-06-25] MEDS: Enoxaparin 40 MG/0.4 ML SYR SC (17:23)
[2022-06-26] VITALS (14 sets, daily range): BP systolic 102–119; BP diastolic 61–74; PULSE 76–121; RESP 2–20; TEMP 36.2–37.2; O2SAT 90–100
[2022-06-26] MEDS: Ipratropium 0.5 MG/2.5 ML UPD VIAL UPD ×3 (06:03→17:49)
[2022-06-26 06:07] LABS: Abs Immature Grans 0.47 10^3/uL (0.0-0.06); HCT 35.2 % (36.0-46.0); HGB 11.1 g/dL (11.2-15.7); MCH 25.8 pg (27.0-33.0); MCHC 31.5 % (32.0-36.0); MCV 82 fL (80-95); MPV 12.8 fL (8.0-11.0); RBC 4.31 10^6/uL (3.93-5.22); RDW-SD 44.7 fL; WBC 14.55 10^3/uL (4.4-10.8)
[2022-06-26 06:29] LABS: Anion Gap 9.8 mmol/L (3-11); BUN 24 mg/dL (7-18); CO2 25.2 mmol/L (21.0-32.0); CREATININE 1.1 mg/dL (0.55-1.02); Calcium 9.9 mg/dL (8.5-10.1); Chloride 102 mmol/L (98-107); Glucose 98 mg/dL (74-106); Magnesium 2.1 mg/dL (1.8-2.4); Potassium 3.7 mmol/L (3.5-5.1); Sodium 137 mmol/L (136-145)
[2022-06-26 07:24] LABS: Absolute Eosinophil Count 0.29 10^3/uL (0.0-0.7); Absolute Lymphocyte Count 0.73 10^3/uL (1.2-3.4); Absolute Neutrophil Count 11.93 10^3/uL (1.2-6.7); Bands % 3; Diff Comment Manual Differential; Platelet Count 140 10^3/uL (130-400); RBC Morphology Normal
[2022-06-26] MEDS: Normal Saline Flush 10 ML SYR IVP (07:35)
[2022-06-26] MEDS: Acetaminophen 325 MG TAB PO (07:35)
[2022-06-26] MEDS: Pantoprazole 40 MG TABCR PO ×2 (07:36→21:52)
[2022-06-26] MEDS: predniSONE 20 MG TAB 40 MG PO (07:56)
[2022-06-26] MEDS: Levalbuterol 1.25 MG/3 ML UPD VIAL UPD (11:46)
[2022-06-26] MEDS: Enoxaparin 40 MG/0.4 ML SYR SC (17:38)
[2022-06-26] MEDS: guaiFENesin 600 MG TABCR PO (21:52)
--- NOTE | 2022-06-26 22:39 | W.PM.PROGNOT ---
Date of Service Date of service: 06/26/22 Time of Service: 16:00 Assessment and Plan Assessment and plan (1) COPD (chronic obstructive pulmonary disease): Status: Acute Assessment and plan: Continue her home inhaled LABA and LAMA, give as needed DuoNeb treatments as needed. Oxygen as needed - currently not on home O2 - SPO2 here 90% on RA; 98 on 2 L Prednisone Incentive Spirometer Acapella Pantoprazole Qualifiers: COPD type: emphysema Emphysema type: centrilobular Qualified Code(s): J43.2 - Centrilobular emphysema (2) Dehydration: Status: Acute Assessment and plan: Mild dehydration due to poor oral intake. BUN elevated 28 but creatinine 1.1 on initial evaluation. Normal Saline 125 ml/h; encourage oral fluids (3) Generalized weakness: Status: Acute Assessment and plan: Consult physical therapy to assess fall safety risk as well as to promote exercise for reconditioning and improve her ambulatory status as well as to promote her ADL performance. 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 but also AMRIK (she is followed both by Dr. Bhandari in pulmonary clinic and by Mary Alice Reed APN in [facility].? Monitor respiratory status and oxygen saturations Qualifiers: Laterality: unspecified laterality Qualified Code(s): C34.90 - Malignant neoplasm of unspecified part of unspecified bronchus or lung (6) Essential hypertension: Status: Chronic Assessment and plan: Stable - continue home medication Monitor (7) Atherosclerotic cardiovascular disease: Status: Acute Assessment and plan: Cath 2020 last echo 06/01/2022 Conclusion Normal left ventricular wall thickness and chamber size.? Estimated ejection fraction is 55 to 60%.? Wall motion is normal Right ventricle is not well visualized Both atria are normal in size The aortic valve is sclerotic and trileaflet without stenosis or regurgitation Mild mitral annular calcification with trace to mild regurgitation Normal tricuspid valve with trace regurgitation Telemetry - HR >100s - goal <100 EKG Sinus Tachycardia, occasional PVC - troponins negative (8) History of fracture of rib: Status: Acute Assessment and plan: Noted, on CT on last admission to be partially healed; today they are healed. Lidoderm patches for pain control, tylenol Physical therapy consultation to assess fall risk and to promote mobility and work on her generalized weakness. (9) DVT prophylaxis: Status: Acute Assessment and plan: Enoxaparin (10) Discharge planning issues: Status: Acute Assessment and plan: SNF; second admission for dehydration in 30d DNR/DNI Discussed with Dr Holland Subjective Subjective Patient reports: no new complaints, feels better, tolerating a regular diet (eating about 1/2 every meal - declines ensure), bowel movement and shortness of breath (no worse, however continues - unable to walk more than 6 feet); denies nausea Interval history since last seen: Lianna is willing to go to rehab for a few weeks to strengthen in attempt to go home and be able to be able to get out of bed. She is very weak and declining in general. Exam Narrative Exam Narrative: Patient is awake sitting in the chair pale, awake, alert, conversant - able to speak in full sentences, she has oxygen on. in the room. Const General: cooperative, comfortable and no acute distress Orientation: alert, awake and oriented x3 HENMT Head: normal to inspection Ears: hearing grossly normal bilaterally and external ears normal Face and sinus: normal facial exam Mouth: moist mucous membranes abnormal (very dry) Throat: posterior oropharynx normal Other: Very dry Eyes General: appearance normal, both eyes and all related structures Pupils: PERRL EOM: EOM intact bilaterally Neck Neck: normal visual inspection and No submandibular swelling Lymphatic: no lymphadenopathy noted Chest Chest: normal inspection of the chest and no tenderness Resp Effort & Inspection: normal respiratory effort, able to speak in complete sentences, cough Quality of cough: dry, pursed lip breathing (occasionally noted), no retractions and not tachypneic Auscultation: diminished lung sounds bilaterally throughout Cardio Rate: tachycardic (100-130s) Rhythm: regular rhythm Heart Sounds: S1 normal and S2 normal GI Inspection: normal to inspection Palpation: soft, not firm, not rigid and nontender Auscultation: normal bowel sounds Back/Spine/Pelvis Thoracic/Lumbar Spine: thoracic and lumbar spine normal to inspection Pelvis: no pain with anterior-posterior compression Skin General skin exam: no rashes or lesions noted Neuro General: patient alert, patient awake, patient oriented x3 and moves all extremities Cognition: normal cognition Speech: speech normal Sensory Exam: no sensory deficits noted Extrem General: normal to inspection, full ROM, capillary refill normal, no calf tenderness bilaterally and no edema Psych Appearance: grossly normal Mental Status: mental status grossly normal Speech and Movement: speech and movement normal Affect: normal affect Objective Last Vital Signs Temp 36.7 C 06/26/22 19:52 Pulse 100 H 06/26/22 19:52 Resp 18 06/26/22 19:52 BP 113/68 06/26/22 19:52 Pulse Ox 96 06/26/22 19:52 Laboratory Results - last 24 hr 06/26/22 06/26/22 05:55 05:55 WBC 14.55 H RBC 4.31 Hgb 11.1 L Hct 35.2 L MCV 82 MCH 25.8 L MCHC 31.5 L RDW 15.0 H Plt Count 140 MPV 12.8 H Immature Gran % See Differential Neutrophils % 79.0 Band Neutrophils % 3 Lymphocytes % 5.0 Monocytes % 11.0 Eosinophils % 2.0 Basophils % 0.0 Nucleated RBC % 0.0 Absolute Neutrophils 11.93 H Absolute Lymphocytes 0.73 L Absolute Monocytes 1.60 H Absolute Eosinophils 0.29 Absolute Basophils 0.00 RBC Morphology Normal Sodium 137 Potassium 3.7 Chloride 102 Carbon Dioxide 25.2 Anion Gap 9.8 BUN 24 H Creatinine 1.1 H Est GFR (CKD-EPI 2020) 52.40 Glucose 98 Calcium 9.9 Magnesium 2.1
[2022-06-27] VITALS (11 sets, daily range): BP systolic 115–126; BP diastolic 61–78; PULSE 76–98; RESP 8–18; TEMP 36.7–37.1; O2SAT 96–99
[2022-06-27] MEDS: Acetaminophen 325 MG TAB PO (04:25)
[2022-06-27] MEDS: Ipratropium 0.5 MG/2.5 ML UPD VIAL UPD ×3 (05:59→17:49)
[2022-06-27 06:52] LABS: HCT 34.4 % (36.0-46.0); HGB 10.6 g/dL (11.2-15.7); MCHC 30.8 % (32.0-36.0); MCV 84 fL (80-95); Platelet Count 115 10^3/uL (130-400); RBC 4.08 10^6/uL (3.93-5.22); RDW 15.1 % (11.7-14.6); WBC 13.72 10^3/uL (4.4-10.8)
[2022-06-27 07:03] LABS: Anion Gap 9.1 mmol/L (3-11); BUN 21 mg/dL (7-18); CO2 26.9 mmol/L (21.0-32.0); CREATININE 0.9 mg/dL (0.55-1.02); Calcium 9.7 mg/dL (8.5-10.1); Chloride 104 mmol/L (98-107); Estimated GFR 66.67 (mL/min/1.73m2); Glucose 95 mg/dL (74-106); Magnesium 1.9 mg/dL (1.8-2.4); Potassium 3.9 mmol/L (3.5-5.1); Sodium 140 mmol/L (136-145)
[2022-06-27 07:39] LABS: Absolute Lymphocyte Count 1.23 10^3/uL (1.2-3.4); Absolute Monocyte Count 1.51 10^3/uL (0.1-0.8); Absolute Neutrophil Count 9.74 10^3/uL (1.2-6.7); Bands % 7
[2022-06-27 07:40] LABS: Absolute Eosinophil Count 0.69 10^3/uL (0.0-0.7); Diff Comment Manual Differential; Myelocytes % 4; RBC Morphology Normal
--- NOTE | 2022-06-27 08:04 | PCNE_ITS ---
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 but also AMRIK (she is followed both by Dr. Bhandari in pulmonary clinic and by Mary Alice Reed APN in [facility],? presented to the [facility] emergency department for evaluation of generalized fatigue, cough and diarrhea over the past several days. She had tachypneic and was tachycardic w/ hr 128 bmp and RR 20, no fever and no hypotension.? She was admitted to [facility] one month ago for increasing dyspnea on exertion and dizziness? with a sensation of increased heart rate and nausea.? She was seen in the ER on 05/[address] that showed left sided 5th and 8th ribs incompletely healed fractures. Today's CT they are healed.? She was prescribed lidocaine patches and ibuprofen.? Labs revealed? WBC 16.07; H&H 14/45; K 4.6; Carbon dioxide 23.4; BUN 31 and Creatineine 1.1, glucose 72.? Negative troponin's x 2. Negative procalcitonin. She was given IV fluids and was unable to ambulate safely with physical therapy.? She is placed on the medical floor for obser Interim hx: Lianna states that she is feeling better. Her nausea has decreased. Her breathing has improved. She is working with physical therapy. She is very concerned that palliative care meant she was dying. I did explain the role of palliative care and helping her to have the best life possible. Assessment and Plan Assessment and plan (1) Dehydration: Status: Acute Assessment and plan: Rehydrated. Nausea has improved (2) Essential hypertension: Status: Chronic Assessment and plan: Blood pressure stable (3) COPD (chronic obstructive pulmonary disease): Status: Acute Assessment and plan: Restarted on home meds doing well Qualifiers: COPD type: emphysema Emphysema type: centrilobular Qualified Code(s): J43.2 - Centrilobular emphysema (4) Non-small cell carcinoma of lung: Status: Chronic Assessment and plan: Followed by pulmonary Qualifiers: Laterality: unspecified laterality Qualified Code(s): C34.90 - Malignant neoplasm of unspecified part of unspecified bronchus or lung (5) Palliative care patient: Status: Acute Assessment and plan: I did talk to Isabel about follow-up after the hospitalization. And she was in favor of having palliative care in the future. If she is still in the hospital in the next few days. In otherwise plan to follow her outpatient Review of Systems Narrative: She always has shortness of breath. It has improved. Overall she does not feel as weak as she did. She is working with physical therapy. She feels better with less nausea PFSH All Active Problems (Updated 06/27/22 @ 14:57 by Ev Velazquez MD, DC) Palliative care patient (Acute) Nausea (Acute) DVT prophylaxis (Acute) Discharge planning issues (Acute) Dehydration (Acute) Carotid artery stenosis (Chronic) right 15-49% in 2019; known left ICA occlusion Essential hypertension (Chronic 06/24/13) Hyperlipidemia (Chronic) Peripheral vascular disease (Chronic) s/p femoral stent at [facility] Tubular adenoma (Chronic 03/07/16) Colonoscopy 03/07/16 - 5 yr plan; colonoscopy 02/2022 at [facility]; tubular adenoma and tubulovillous adenomas Sciatica (Acute) COPD (chronic obstructive pulmonary disease) (Acute) Atherosclerotic cardiovascular disease (Acute) cardiac cath in 2020 with nonobstructive disease Left lower lobe pulmonary nodule (Acute) Generalized weakness (Acute) Dizziness (Acute) History of fracture of rib (Acute) Non-small cell carcinoma of lung (Chronic ~05/2019) Biopsied at [facility]; followed by [facility] pulm and [facility] oncology. 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 October 05, 2018 while in-patient. Has not smoked since. 03/20/19 - Admits to 1 cigaret 1-2 per week. 12/19/19 - smoking 3-4 /day - QUIT again 03/16/21 - Reports NONE since 04/2020 Hx of non-ST elevation myocardial infarction (NSTEMI) (2019) in the setting of pneumothorax Pneumothorax on left Initial 01/02/20 LEFT Repeat spont. LEFT pneumothorax - 05/01/20 Repeat spont. pneumothorax (#3) LEFT 01/2021 Polyp of colon Primary malignant neoplasm of cervix s/p hyst Ruptured emphysematous bleb of lung Squamous cell carcinoma of skin UPJ obstruction, acquired chronic bilateral hydronephrosis on CT Surgical History (Updated 06/01/22 @ 08:07 by Candelaria Pereira MD) Colonoscopy - [facility] (03/07/16) Dr Parisi excision CIS R buttock 2008 History of discectomy History of excision of mass History of lung biopsy (~2015) S/P hysterectomy fibroid uterus ovaries remain Status post breast biopsy Status post carpal tunnel release Status post cholecystectomy Family History Mother , 65 Cancer Sister , 65 Breast cancer Father , 75 Heart disease Sister Cancer Sister No problems noted. Brother Bone cancer Lung cancer Daughter No problems noted. Daughter No problems noted. Son No problems noted. Brother No problems noted. Maternal Grandfather No problems noted. Paternal Grandfather No problems noted. Maternal Grandmother No problems noted. Paternal Grandmother No problems noted. Social History Smoking/Tobacco Use Status: Former Tobacco Use tobacco type: cigarettes Quit Date: 10/05/18 Tobacco: How many years used: 55 Second Hand Exposure: Yes Counseling given: patient declined Smoking risk assessment performed?: Yes Alcohol Intake: never Substance use type: does not use Details: Quit smoking while in-patient. Caregiver/Support person: No Household members: spouse Housing: house Communication Needs: None Do you need help understanding health information?: Never Pets and animals: No Sexually active: No Do you think of yourself as: straight/heterosexual Current gender identity: female What is your relationship status?: How often do you talk on the phone with friends or family?: once per week Do you belong to any clubs or organized social groups?: no Panel score (0-1 are the most socially isolated patients): 1 What type of physical activity do you participate in: walking Duration: < 15 minutes/day Frequency: daily Special sonia needs: No Seatbelt use: always 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 Cheery. Air movement is decreased significantly especially on the left side. Her heart is regular. She does not have any edema. Results Last Vital Signs Temp 98.4 F 06/27/22 07:56 Pulse 85 06/27/22 07:56 Resp 16 06/27/22 07:56 BP 126/72 06/27/22 07:56 Pulse Ox 99 06/27/22 07:56 Labs Result diagrams: 06/27/22 05:56 06/27/22 06:02 Labs: Laboratory Results - last 24 hr 06/27/22 06/27/22 05:56 06:02 WBC 13.72 H RBC 4.08 Hgb 10.6 L Hct 34.4 L MCV 84 MCH 26.0 L MCHC 30.8 L RDW 15.1 H Plt Count 115 L MPV Immature Gran % See Differential Neutrophils % 64.0 Band Neutrophils % 7 Lymphocytes % 9.0 Monocytes % 11.0 Eosinophils % 5.0 Basophils % 0.0 Myelocytes % 4 Nucleated RBC % 0.0 Absolute Neutrophils 9.74 H Absolute Lymphocytes 1.23 Absolute Monocytes 1.51 H Absolute Eosinophils 0.69 Absolute Basophils 0.00 RBC Morphology Normal Sodium 140 Potassium 3.9 Chloride 104 Carbon Dioxide 26.9 Anion Gap 9.1 BUN 21 H Creatinine 0.9 Est GFR (CKD-EPI 2020) 66.67 Glucose 95 Calcium 9.7 Magnesium 1.9 Imaging Imaging Studies: CT Chest FINDINGS: CT angiography of the chest was performed with intravenous infusion of 100 cc of Omnipaque 350. The lungs are predominantly clear with a previously noted left lung spiculated nodule unchanged in appearance at approximately 9 millimeters.? No new infiltrate, a previously noted right upper lobe scarring also again seen.? No pleural effusion. Tracheobronchial tree appears intact. No evidence of pulmonary embolic disease. Thoracic aorta is of normal diameter, no thoracic aortic aneurysm or dissection, major branch vessels appear intact. No mediastinal or hilar adenopathy. Images obtained through the upper abdomen show unremarkable appearance of the visualized portions of the liver, and spleen, note is made of probable right hydronephrosis.. IMPRESSION: Probable right hydronephrosis.? No change in appearance of the chest from May 28 study.? No evidence of pulmonary embolic disease.
[2022-06-27] MEDS: Pantoprazole 40 MG TABCR PO ×2 (08:30→20:36)
[2022-06-27] MEDS: predniSONE 20 MG TAB 40 MG PO (08:30)
--- NOTE | 2022-06-27 09:16 | CMPROGNOTE_ITS ---
- If Service Date Differs Date of service: 06/27/22 Time of Service: 09:16 Care Management Progress Note S/O:Lianna was sitting up in a chair when CM met with her. She appeared to be in good spirits and was visiting with her . Lianna informed CM that she walked this morning with PT with minimal assistance. She was short of breath after the effort but expressed that she was happy to be able to do that much. [facility], [facility], [facility]. Lianna also mentioned that Dr. Velazquez had seen her this morning to begin a discussion about Palliative Care. Lianna was concerned at first because she misunderstood the purpose for the consultation, however Dr. Velazquez was able to clarify things for her. [facility] that she was unable to keep but she stated that she has made the decision not to pursue further treatment for her cancer. A: Lianna is a 77 year old woman admitted with a COPD exacerbation and pneumonia P:Anticipate Lianna will transfer to a SNF for short term rehab prior to returning home.. She will follow up with the facility providers and plan of care. Transportation will be determined by final disposition. CM will continue to follow and support Lianna and her discharge planning needs.
--- NOTE | 2022-06-27 09:41 | PT.INIE ---
Date of service: 06/27/22 Time of Service: 09:41 PT Notes Visit Reasons: Acute Exacerbation of COPD w/ Hypoxia, Dehydration Inpatient Physical Therapy Evaluation Date: 06/27/2022 Referring Doctor: Parris Sage NP PT Orders: PT CONSULT: Referral received for decreased activity tolerance from community-acquired pneumonia and COPD exacerbation Precautions: Fall.?Standard. Activity as tolerated. On 1.5 L of oxygen via NC. Patient Profile/Admitting Diagnosis:? Patient is a 77-year-old female with past medical history significant for non-small cell carcinoma of lung and essential HTN who presented to the ED on 06/24/2022 with chief complaints of fatigue, cough, dyspnea, and severe dehydration. Patient is diagnosed with COPD exacerbation, dehydration, generalized weakness, nausea, ASCVD with EF 55% to 60%.? PMHX: All Active Problems?(Updated 06/24/22 @ 19:26 by Parris Sage NP) Nausea (Acute) DVT prophylaxis (Acute) Discharge planning issues (Acute) Dehydration (Acute) Carotid artery stenosis (Chronic) right 15-49% in 2019; known left ICA occlusion Essential hypertension (Chronic 06/24/13) Hyperlipidemia (Chronic) Peripheral vascular disease (Chronic) [place] [facility] [place]ular adenoma (Chronic 03/07/16) Colonoscopy 03/07/16 - 5 yr plan; [place] [facility] tubular adenoma and tubulovillous adenomas Sciatica (Acute) COPD (chronic obstructive pulmonary disease) (Acute) Atherosclerotic cardiovascular disease (Acute) cardiac cath in 2020 with nonobstructive disease Left lower lobe pulmonary nodule (Acute) Generalized weakness (Acute) Dizziness (Acute) History of fracture of rib (Acute) Non-small cell carcinoma of lung (Chronic ~05/2019) [facility]ops[facility] at [facility]; followed by [facility] pulm and [facility] [place] Weight loss, abnormal (Acute) COPD exacerbation (Acute) Acute dehydration (Acute) Medical History?(Updated 06/24/22 @ 19:26 by Parris Sage NP) Abnormal PET scan of colon colonoscopy with tubular adenoma and tubulovillous adenoma 02/2022 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 October 05, 2018 while in-patient.? Has? not smoked since. 03/20/19 - Admits to 1 cigaret 1-2 per week. 12/19/19 - smoking 3-4 /day -01/2020 - QUIT again 03/16/21 - Reports NONE since 04/2020 Hx of non-ST elevation myocardial infarction (NSTEMI) (2019) in the setting of pneumothorax Pneumothorax on left Initial 01/02/20 LEFT Repeat spont. LEFT pneumothorax - 05/01/20 Repeat spont. pneumothorax (#3) LEFT 01/2021 Polyp of colon Primary malignant neoplasm of cervix s/p hyst Ruptured emphysematous bleb of lung Squamous cell carcinoma of skin UPJ obstruction, acquired chronic bilateral hydronephrosis on CT Surgical History?(Updated 06/01/22 @ 08:07 by Candelaria Pereira MD) [place] [facility] [place] Dr Parisi excision CIS R buttock 2009 History of discectomy History of excision of mass History of lung biopsy (~2015) S/P hysterectomy fibroid uterus ovaries remain Status post breast biopsy Status post carpal tunnel release Status post cholecystectomy Social History/Home Situation: Distant supervision with indoor ambulation using front-wheeled walker. Patient lives with in [place] in a ranch style house with ramp to enter.? States she has a basement but she has not needed to go down for anything. Everything she needs is on the main floor: Bed is about 30 feet from bathroom. Living room is at least 50 feet from her bedroom which includes a long hallway.? 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 Used to do motorbiking for a hobby. Equipment Owned/DME: [facility] Subjective:? Reports pain in the upper abdominal area that worsens with coughing, Nurse Ludwin updated. Denies headache, chest pain, and lightheadedness throughout. Complained of fatigue after short in-rrom ambulation. Objective:? General Observation: Patient is seen sitting on her chair, oxygen cannula on at 1.5 L liters per minute.? Multiple skin discoloration seen in B UE where IV insertions had been. Asthenic. Mental Status: Alert and oriented x 3 Pain: Denies ROM: Right Upper Extremity: Shoulder Flexion WFL. Shoulder abduction WFL. Elbow flexion WFL. Wrist flexion WFL. Functional opening and closing of hand WFL. Left Upper Extremity: Shoulder Flexion WFL. Shoulder abduction WFL. Elbow flexion WFL. Wrist flexion WFL. Functional opening and closing of hand WFL. Right Lower Extremity: Hip flexion WFL. Hip abduction WFL. Knee flexion WFL. Ankle dorsiflexion WFL. Ankle plantarflexion WFL. Left Lower Extremity: Hip flexion WFL. Hip abduction WFL. Knee flexion WFL. Ankle dorsiflexion WFL. Ankle plantarflexion WFL. Strength: Right Upper Extremity: Shoulder flexors 4-/5. Shoulder abductors 4-/5. Elbow flexors 4-/5. Elbow extensors 4-/5. Grocery Shopper strong. Left Upper Extremity: Shoulder flexors 4-/5. Shoulder abductors 4-/5. Elbow flexors 4-/5. Elbow extensors 4-/5. Grocery Shopper strong. Right Lower Extremity: Hip flexors 4-/5. Hip abductors 4-/5. Knee flexors 4/5. Knee extensors 4-/5. Ankle dorsiflexors 4-/5. Ankle plantarflexors 4-/5. Left Lower Extremity: HHip flexors 4-/5. Hip abductors 4-/5. Knee flexors 4/5. Knee extensors 4-/5. Ankle dorsiflexors 4-/5. Ankle plantarflexors 4-/5. Sensation:? Intact on BLE S to pain and pressure Bed Mobility/Transfers: Sit to stand contact guard assist from wheelchair; stand by assist from a high chair with cue given to use B hands to push off from arm rest for support Stand to sit stand by assist with cue given to use B hands to reach behind for support Gait:? Patient was able to tolerate level surface ambulation using front-wheeled walker with CGA for 20 feet before needing to rest due to fatigue and weakness.? She was then able to walk about 20 feet more after a seated rest with 97% at 2 L/minback to her bedside chair. Complained of minimal shortness of breath, subsided with rest with oxygen level remaining above 93% on same supplementation. Balance:? Static Sitting: Good Dynamic Sitting: Good Static Standing: Fair Dynamic Standing: Fair Special Tests: Mobility Limitations Standardized Measure [facility] 6 clicks Basic Mobility Inpatient Short Form: Raw Score: 18 ? CMS Score: 47% deficit ? ? ? Informed Consent/Education:? Informed Consent/Education: Patient was instructed in purpose of PT consult and plan of care. Agreeable to proceed with established PT POC to achieve personal goals. Assessment:? Activity tolerance decreased. Needs frequent rests due to low endurance. Patient is a 77-year-old female with past medical history significant for non-small cell carcinoma of lung and essential HTN who presented to the ED on 06/24/2022 with chief complaints of fatigue, cough, dyspnea, and severe dehydration. Patient is diagnosed with COPD exacerbation, dehydration, generalized weakness, nausea, ASCVD with EF 55% to 60%.? Patient presents with clinical signs and symptoms consistent with current/admitting diagnoses that have resulted to mobility limitations, gait instability, generalized weakness, and lack of motor control as demonstrated by the following impairment level findings: 1.? Decreased strength to B LE major muscle groups 2.? Impaired balance 3.? Impaired activity tolerance 4.? Dyspnea with mobility ADL performance Impairments are contributing to the following functional limitations: 1.? Decreased bed mobility skills 2.? Increased dependence with transfers 3.? Inability to safely ambulate without oxygen supplementation, assistive device, and physical assistance 4.? Increase completion time for mobility ADL performance to minimize dyspnea 5.? Increased fall risk Patient is assessed as a Moderate [id number] complexity based on the following: History: Patient is a 77-year-old female with comorbidities and past medical history as listed above Examination: Underlying impairments and functional limitations as noted above Presentation: Evolving Decision Makin moderate complexity Goals: Goals X1 week 1. Supine-Sit independent 2. Sit-Supine independent 3. Sit-Stand independent with 4WW 4. Stand-Sit independent with 4WW 5. Bed-Chair independent with 4WW 6. Chair-Bed independent with 4WW 7. Gait on level surface ambulation with use of with 4WW for at least 75 feet without report of pain nor dyspnea 8. Independent with home exercise program 9. Balance good for static and dynamic standing Plan of Care/Treatment Plan: 1-2x/day, 7 days/week x 1 week. Plan of care has been reviewed with the ASTROBIOLOGIST providing the service under Physical Therapy direction. Initiate Physical Therapy intervention for strengthening, bed mobility, transfers, gait, stairs, balance training, use of assistive device. DISCHARGE RECOMMENDATIONS: 1. SNF vs PT based on progeress towards goals. 2. Patient may benefit from the use of four-wheeled walker as part of energy conservation techniques and activity pacing in order to increase activity tolerance and minimize dyspnea.? 3. Will need OT evalaution for self-care and grooming ADL assessment TREATMENT CODE/TIME: 86166 x 20 minutes, 76605 x 19 minutes beginning at 9:41 AM. Thank you for the opportunity to participate in the care of this patient. Lianne Wakefield PT, DPT, CLT [facility] [place], [place]
[2022-06-27] MEDS: Levalbuterol 1.25 MG/3 ML UPD VIAL UPD (11:33)
--- NOTE | 2022-06-27 14:54 | PT.INTREAT ---
Date of service: 06/27/22 Time of Service: 14:54 PT Notes Visit Reasons: Acute Exacerbation of COPD w/ Hypoxia, Dehydration Inpatient Physical Therapy Treatment Note Date: 06/27/2022 Precautions: Fall.?Standard.? Activity as tolerated. On 1.5 L of oxygen via NC. Subjective:? Had a good lunch. Feels dee dee short of breath at rest. Agreeable to walking and then to doing exercises after. Continues to report pain across upper abdominal area that worsens with coughing. Objective:? General Observation: Patient is seen sitting on her chair, oxygen cannula on at 1.5 L liters per minute.? Multiple skin discoloration seen in B UE where IV insertions had been.? Asthenic. Mental Status: Alert and oriented x 3 Pain: Across upper abdominal area that is worst with coughing Bed Mobility/Transfers: Sit to stand contact guard assist from wheelchair;? stand by assist from a high chair with cue given to use B hands to push off from arm rest for support Stand to sit stand by assist with cue given to use B hands to reach behind for support Gait:? Patient was able to tolerate level surface ambulation using front-wheeled walker with CGA for 25 feet before needing to sit down due to fatigue and weakness.? Neededf to walk another 15 feet to the bedside commode from door to urinate and then finally did another 10 steps back to her chair with less shortness of breath compared to this morning. Reported fatigu after activity. THERA EX: Seated marches x 5 Chest expansion exercises with DBE x 3 Bilateral LAQs x 5 Chest expansion exercises with DBE x 3 Ankle DF/PF Balance:? Static Sitting: Good Dynamic Sitting: Good Static Standing: Fair Dynamic Standing: Fair Assessment:? Needed assistance with toiletting for this session. Activity tolerance decreased.? Needs frequent rests due to low endurance.? Patient is a 77-year-old female with past medical history significant for non-small cell carcinoma of lung and essential HTN who presented to the ED on 06/24/2022 with chief complaints of fatigue,? cough, dyspnea, and severe dehydration.? Patient is diagnosed with COPD exacerbation,? dehydration,? generalized weakness,? nausea,? ASCVD with EF 55% to 60%.? DISCHARGE RECOMMENDATIONS: 1. SNF vs HH PT based on progeress towards goals.? 2. Patient may benefit from the use of four-wheeled walker as part of energy conservation techniques and activity pacing in order to increase activity tolerance and minimize dyspnea.? 3.? Will need OT evalaution for self-care and grooming ADL assessment TREATMENT CODE/TIME: 27942 x 30 minutes, 38357 x 14 minutes beginning at 14:54 PM.
--- NOTE | 2022-06-27 16:25 | PHA.REVIEW2 ---
Pharmacy Admission Review - Admission Clinical Review (Last Updated 06/24/22 @ 19:13 by Parris Sage NP) Palliative care patient (Acute) Nausea (Acute) DVT prophylaxis (Acute) Discharge planning issues (Acute) Dehydration (Acute) COPD (chronic obstructive pulmonary disease) (Acute) Atherosclerotic cardiovascular disease (Acute) Generalized weakness (Acute) History of fracture of rib (Acute) COPD exacerbation (Acute) Acute dehydration (Acute) Tetanus Vaccines and Toxoid Allergy (Mild, Verified 06/24/22 10:50) LOCAL SWELLING Resuscitation Status DNR/DNI Height 5 ft 4 in Weight 44.9 kg - Renal Dosing Renal Dosing: BUN 21 mg/dL (7-18) H 06/27/22 06:02 Creatinine 0.9 mg/dL (0.55-1.02) 06/27/22 06:02 Medications needing adjustments: Reviewed (Crcl ~34.4 mL/min current meds okay) - Anticoagulation Anticoagulation: Hgb 10.6 g/dL (11.2-15.7) L 06/27/22 05:56 Hct 34.4 % (36.0-46.0) L 06/27/22 05:56 Plt Count 115 10^3/uL (130-400) L 06/27/22 05:56 INR 1.1 (0.9-1.1) 06/24/22 13:55 Creatinine 0.9 mg/dL (0.55-1.02) 06/27/22 06:02 DVT Prophylaxis: Reviewed (H/H and plts have been trending down) Medications: Enoxaparin Therapeutic Anticoagulation: N/A - Opiate Usage Evaluate Pain Scale/Pains Meds: N/A - Relevant Labs Sodium 140 mmol/L (136-145) 06/27/22 06:02 Potassium 3.9 mmol/L (3.5-5.1) 06/27/22 06:02 Chloride 104 mmol/L (98-107) 06/27/22 06:02 Magnesium 1.9 mg/dL (1.8-2.4) 06/27/22 06:02 Electrolytes, C-Reactive P, ESR: Reviewed - DM Control DM Control: Glucose 95 mg/dL (74-106) 06/27/22 06:02 DM Control: Reviewed Insulin Dosing, Diabetic Medication: n/a - Cardiac Review Cardiac Review: Troponin I < 50 ng/L (<or=60) 06/24/22 17:13 NT-Pro-B Natriuret Pep 1191 pg/mL (<300) H 06/24/22 17:13 BP, HR, EF%: Reviewed - Qtc Review QTc: Reviewed (QTc 421 on 06/24/22) - IV to PO Switch IV Medications: Reviewed - Home Meds Home Med List reviewed: Intervened (will ask provider about Breztri inhaler and lidocaine as they are mentioned in the progress note about continuing.) Relevent Home Meds Not ordered & why?: albuterol (has levalbuterol ordered), budesonide/glycopyrrolate/formoterol (Breztri), lidocaine - Current meds Current Medication Order Review: Intervened (Discontinued DI meds that had already been given.) - Comments Comments/Follow Ups: Watch VS, SCr, H/H, plts, labs and for med changes (possible renal dose adjustments).
--- NOTE | 2022-06-27 17:12 | W.PM.PROGNOT ---
Date of Service Date of service: 06/27/22 Time of Service: 17:12 Assessment and Plan Assessment and plan (1) COPD (chronic obstructive pulmonary disease): Status: Acute Assessment and plan: Continue her home inhaled LABA and LAMA, give as needed DuoNeb treatments as needed. Oxygen as needed - currently not on home O2 - SPO2 here 90% on RA; 98 on 2 L Prednisone Incentive Spirometer Acapella Pantoprazole Qualifiers: COPD type: emphysema Emphysema type: centrilobular Qualified Code(s): J43.2 - Centrilobular emphysema (2) Dehydration: Status: Acute Assessment and plan: Mild dehydration due to poor oral intake. BUN elevated 28 but creatinine 1.1 on initial evaluation. Encourage oral fluids (3) Generalized weakness: Status: Acute Assessment and plan: Consult physical therapy to assess fall safety risk as well as to promote exercise for reconditioning and improve her ambulatory status as well as to promote her ADL performance. 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 but also AMRIK (she is followed both by Dr. Bhandari in pulmonary clinic and by [facility] in [facility].? Monitor respiratory status and oxygen saturations Qualifiers: Laterality: unspecified laterality Qualified Code(s): C34.90 - Malignant neoplasm of unspecified part of unspecified bronchus or lung (6) Essential hypertension: Status: Chronic Assessment and plan: Stable - continue home medication Monitor (7) Atherosclerotic cardiovascular disease: Status: Acute Assessment and plan: Cath 2020 last echo 06/01/2022 Conclusion Normal left ventricular wall thickness and chamber size.? Estimated ejection fraction is 55 to 60%.? Wall motion is normal Right ventricle is not well visualized Both atria are normal in size The aortic valve is sclerotic and trileaflet without stenosis or regurgitation Mild mitral annular calcification with trace to mild regurgitation Normal tricuspid valve with trace regurgitation Telemetry discontinued - NSR no ectopy since admission (8) History of fracture of rib: Status: Acute Assessment and plan: Noted, on CT on last admission to be partially healed; today they are healed. Lidoderm patches for pain control, tylenol Physical therapy consultation to assess fall risk and to promote mobility and work on her generalized weakness. (9) DVT prophylaxis: Status: Acute Assessment and plan: Enoxaparin (10) Discharge planning issues: Status: Acute Assessment and plan: SNF; second admission for dehydration in 30d; she and her are in agreement with this plan. DNR/DNI Discussed with Dr Holland Subjective Subjective Patient reports: no new complaints, tolerating a regular diet, bowel movement, shortness of breath (imroved with oxygen - does require resting for SPO2 to go up) and afebrile; denies diarrhea, nausea or vomiting Exam Narrative Exam Narrative: Patient is awake sitting in the chair pale, awake, alert, conversant - able to speak in full sentences, she has oxygen on. in the room. He is inquiring regarding rehab centers in the area. He did have a conversation with case management (see their note) Const General: cooperative, comfortable and no acute distress Orientation: alert, awake and oriented x3 HENMT Head: normal to inspection Ears: hearing grossly normal bilaterally and external ears normal Face and sinus: normal facial exam Mouth: moist mucous membranes abnormal (very dry) Throat: posterior oropharynx normal Other: Very dry Eyes General: appearance normal, both eyes and all related structures Pupils: PERRL EOM: EOM intact bilaterally Neck Neck: normal visual inspection and No submandibular swelling Lymphatic: no lymphadenopathy noted Chest Chest: normal inspection of the chest and no tenderness Resp Effort & Inspection: normal respiratory effort, able to speak in complete sentences, cough Quality of cough: dry, pursed lip breathing (occasionally noted), no retractions and not tachypneic Auscultation: diminished lung sounds bilaterally throughout Cardio Rate: tachycardic (100-130s) Rhythm: regular rhythm Heart Sounds: S1 normal and S2 normal GI Inspection: normal to inspection Palpation: soft, not firm, not rigid and nontender Auscultation: normal bowel sounds Back/Spine/Pelvis Thoracic/Lumbar Spine: thoracic and lumbar spine normal to inspection Pelvis: no pain with anterior-posterior compression Skin General skin exam: no rashes or lesions noted Neuro General: patient alert, patient awake, patient oriented x3 and moves all extremities Cognition: normal cognition Speech: speech normal Sensory Exam: no sensory deficits noted Extrem General: normal to inspection, full ROM, capillary refill normal, no calf tenderness bilaterally and no edema Psych Appearance: grossly normal Mental Status: mental status grossly normal Speech and Movement: speech and movement normal Affect: normal affect Objective Last Vital Signs Temp 37.1 C 06/27/22 14:40 Pulse 90 06/27/22 14:40 Resp 18 06/27/22 14:40 BP 118/78 06/27/22 14:40 Pulse Ox 98 06/27/22 14:40 Laboratory Results - last 24 hr 06/27/22 06/27/22 05:56 06:02 WBC 13.72 H RBC 4.08 Hgb 10.6 L Hct 34.4 L MCV 84 MCH 26.0 L MCHC 30.8 L RDW 15.1 H Plt Count 115 L MPV Immature Gran % See Differential Neutrophils % 64.0 Band Neutrophils % 7 Lymphocytes % 9.0 Monocytes % 11.0 Eosinophils % 5.0 Basophils % 0.0 Myelocytes % 4 Nucleated RBC % 0.0 Absolute Neutrophils 9.74 H Absolute Lymphocytes 1.23 Absolute Monocytes 1.51 H Absolute Eosinophils 0.69 Absolute Basophils 0.00 RBC Morphology Normal Sodium 140 Potassium 3.9 Chloride 104 Carbon Dioxide 26.9 Anion Gap 9.1 BUN 21 H Creatinine 0.9 Est GFR (CKD-EPI 2020) 66.67 Glucose 95 Calcium 9.7 Magnesium 1.9
--- NOTE | 2022-06-27 17:35 | NUR.NOTE ---
pt states she hasnt taken in a few days....actually a few weeks states it tastes bad but MD ordered it as this was cheaper than multiple inhalers explained long acting inhaler meds and pt states she will call and have him bring tomorrow. RT notified and states Aaliyah will come work with pt on edcuation on ih use and results. Nursing Note:
[2022-06-27] MEDS: Enoxaparin 40 MG/0.4 ML SYR SC (17:49)
[2022-06-27] MEDS: guaiFENesin 600 MG TABCR PO (20:36)
[2022-06-27] MEDS: Lidocaine 5% Patch 2 PATCH TP (22:00)
[2022-06-28] VITALS (14 sets, daily range): BP systolic 99–146; BP diastolic 60–73; PULSE 83–110; RESP 8–20; TEMP 36.6–37; O2SAT 93–99
[2022-06-28] MEDS: Albuterol/Ipratropium 3 ML UPD VIAL IH (04:44)
[2022-06-28 06:45] LABS: HCT 36.4 % (36.0-46.0); HGB 11.3 g/dL (11.2-15.7); MCH 25.7 pg (27.0-33.0); MCV 83 fL (80-95); Platelet Count 127 10^3/uL (130-400); RBC 4.39 10^6/uL (3.93-5.22); RDW 15.1 % (11.7-14.6); RDW-SD 45.4 fL
[2022-06-28 06:59] LABS: Anion Gap 10.2 mmol/L (3-11); BUN 18 mg/dL (7-18); CO2 28.8 mmol/L (21.0-32.0); CREATININE 0.8 mg/dL (0.55-1.02); Calcium 9.9 mg/dL (8.5-10.1); Chloride 102 mmol/L (98-107); Estimated GFR 76.79 (mL/min/1.73m2); Glucose 76 mg/dL (74-106); Magnesium 1.8 mg/dL (1.8-2.4); Potassium 3.9 mmol/L (3.5-5.1); Sodium 141 mmol/L (136-145)
[2022-06-28 07:18] LABS: Absolute Eosinophil Count 0.52 10^3/uL (0.0-0.7); Absolute Lymphocyte Count 2.19 10^3/uL (1.2-3.4); Absolute Monocyte Count 1.42 10^3/uL (0.1-0.8); Absolute Neutrophil Count 8.64 10^3/uL (1.2-6.7); Bands % 7; Diff Comment Manual Differential; Metamyelocytes % 1; RBC Morphology Normal
[2022-06-28] MEDS: guaiFENesin 600 MG TABCR PO ×2 (08:37→19:54)
[2022-06-28] MEDS: Acetaminophen 325 MG TAB PO (08:37)
[2022-06-28] MEDS: Pantoprazole 40 MG TABCR PO ×2 (08:37→19:54)
[2022-06-28] MEDS: predniSONE 20 MG TAB 40 MG PO (08:38)
[2022-06-28] MEDS: Normal Saline Flush 10 ML SYR IVP (08:38)
--- NOTE | 2022-06-28 09:49 | W.PM.PROGNOT ---
Date of Service Date of service: 06/28/22 Time of Service: 09:49 Assessment and Plan Assessment and plan (1) COPD (chronic obstructive pulmonary disease): Status: Acute Assessment and plan: Continue her home inhaled LABA and LAMA, give as needed DuoNeb treatments as needed. Oxygen as needed - currently not on home O2 - SPO2 here 90% on RA; 98 on 2 L Prednisone Incentive Spirometer Acapella Pantoprazole Qualifiers: COPD type: emphysema Emphysema type: centrilobular Qualified Code(s): J43.2 - Centrilobular emphysema (2) Dehydration: Status: Resolved Assessment and plan: Mild dehydration due to poor oral intake. BUN elevated 28 but creatinine 1.1 on initial evaluation. Encourage oral fluids (3) Generalized weakness: Status: Acute Assessment and plan: Consult physical therapy to assess fall safety risk as well as to promote exercise for reconditioning and improve her ambulatory status as well as to promote her ADL performance. PT rec: 1-2x/day, 7 days/week x 1 week. Initiate Physical Therapy intervention for strengthening, bed mobility, transfers, gait, stairs, balance training, use of assistive device. 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 but also AMRIK (she is followed both by Dr. Bhandari in pulmonary clinic and by Mary Alice Reed APN in [facility].? Monitor respiratory status and oxygen saturations Qualifiers: Laterality: unspecified laterality Qualified Code(s): C34.90 - Malignant neoplasm of unspecified part of unspecified bronchus or lung (6) Essential hypertension: Status: Chronic Assessment and plan: Stable - continue home medication Monitor (7) Atherosclerotic cardiovascular disease: Status: Acute Assessment and plan: Cath 2020 last echo 06/01/2022 Conclusion Normal left ventricular wall thickness and chamber size.? Estimated ejection fraction is 55 to 60%.? Wall motion is normal Right ventricle is not well visualized Both atria are normal in size The aortic valve is sclerotic and trileaflet without stenosis or regurgitation Mild mitral annular calcification with trace to mild regurgitation Normal tricuspid valve with trace regurgitation Telemetry discontinued - NSR no ectopy since admission (8) History of fracture of rib: Status: Acute Assessment and plan: Noted, on CT on last admission to be partially healed; today they are healed. Lidoderm patches for pain control, tylenol Physical therapy consultation to assess fall risk and to promote mobility and work on her generalized weakness - done (9) DVT prophylaxis: Status: Acute Assessment and plan: Enoxaparin (10) Discharge planning issues: Status: Acute Assessment and plan: SNF; second admission for dehydration in 30d; she and her are in agreement with this plan. DNR/DNI Discussed with Dr Holland Subjective Subjective Patient reports: no new complaints, feels better, tolerating a regular diet, voiding w/o difficulty and bowel movement; denies diarrhea, nausea or vomiting Exam Narrative Exam Narrative: Patient is awake sitting in the chair pale, awake, alert, conversant - able to speak in full sentences, she has oxygen on. in the room, very attentive and appropriate. She continues to agree to going to rehab. Const General: cooperative, comfortable and no acute distress Orientation: alert, awake and oriented x3 HENMT Head: normal to inspection Ears: hearing grossly normal bilaterally and external ears normal Face and sinus: normal facial exam Mouth: moist mucous membranes abnormal (very dry) Throat: posterior oropharynx normal Other: Very dry Eyes General: appearance normal, both eyes and all related structures Pupils: PERRL EOM: EOM intact bilaterally Neck Neck: normal visual inspection and No submandibular swelling Lymphatic: no lymphadenopathy noted Chest Chest: normal inspection of the chest and no tenderness Resp Effort & Inspection: normal respiratory effort, able to speak in complete sentences, cough Quality of cough: dry, pursed lip breathing (occasionally noted), no retractions and not tachypneic Auscultation: diminished lung sounds bilaterally throughout Cardio Rate: tachycardic (100-130s) Rhythm: regular rhythm Heart Sounds: S1 normal and S2 normal GI Inspection: normal to inspection Palpation: soft, not firm, not rigid and nontender Auscultation: normal bowel sounds Back/Spine/Pelvis Thoracic/Lumbar Spine: thoracic and lumbar spine normal to inspection Pelvis: no pain with anterior-posterior compression Skin General skin exam: no rashes or lesions noted Neuro General: patient alert, patient awake, patient oriented x3 and moves all extremities Cognition: normal cognition Speech: speech normal Sensory Exam: no sensory deficits noted Extrem General: normal to inspection, full ROM, capillary refill normal, no calf tenderness bilaterally and no edema Psych Appearance: grossly normal Mental Status: mental status grossly normal Speech and Movement: speech and movement normal Affect: normal affect Objective Last Vital Signs Temp 36.8 C 06/28/22 07:27 Pulse 110 H 06/28/22 08:45 Resp 18 06/28/22 07:27 BP 130/70 06/28/22 07:27 Pulse Ox 94 06/28/22 08:45 Laboratory Results - last 24 hr 06/28/22 06/28/22 05:50 05:50 WBC 12.90 H RBC 4.39 Hgb 11.3 Hct 36.4 MCV 83 MCH 25.7 L MCHC 31.0 L RDW 15.1 H Plt Count 127 L MPV Immature Gran % 0.0 Neutrophils % 60.0 Band Neutrophils % 7 Lymphocytes % 17.0 Monocytes % 11.0 Eosinophils % 4.0 Basophils % 0.0 Metamyelocytes % 1 Nucleated RBC % 0.0 Absolute Neutrophils 8.64 H Absolute Lymphocytes 2.19 Absolute Monocytes 1.42 H Absolute Eosinophils 0.52 Absolute Basophils 0.00 RBC Morphology Normal Sodium 141 Potassium 3.9 Chloride 102 Carbon Dioxide 28.8 Anion Gap 10.2 BUN 18 Creatinine 0.8 Est GFR (CKD-EPI 2020) 76.79 Glucose 76 Calcium 9.9 Magnesium 1.8 Reviewed Pertinent PMH: Yes
--- NOTE | 2022-06-28 12:23 | PDOC.CMPRO ---
- If Service Date Differs Date of service: 06/28/22 Time of Service: 12:23 Care Management Progress Note S/O: Lianna was sitting up in her chair when CM met with her. She stated that she is doing ok today, but still feels very weak. She reported that she is doing ok working with PT, but she is limited by her weakness. She also reported that she is trying to eat small amounts, but does not feel hungry. She stated that she is trying to focus on eating more protein. CM contacted the facilities where referrals were sent. [facility] the referrals for consideration. CM will continue to follow. A: Lianna is a 77 year old woman admitted with a COPD exacerbation and pneumonia P:Anticipate Lianna will transfer to a SNF for short term rehab prior to returning home.. She will follow up with the facility providers and plan of care. Transportation will be determined by final disposition. CM will continue to follow and support Lianna and her discharge planning needs.
[2022-06-28] MEDS: Levalbuterol 1.25 MG/3 ML UPD VIAL UPD (12:56)
[2022-06-28] MEDS: Ipratropium 0.5 MG/2.5 ML UPD VIAL UPD ×2 (12:57→17:35)
--- NOTE | 2022-06-28 15:57 | PTTR_ITS ---
Date of service: 06/28/22 Time of Service: 11:25 PT Notes Visit Reasons: Acute Exacerbation of COPD w/ Hypoxia, Dehydration Inpatient Physical Therapy Treatment Note [facility] Date: 06/29/2022 PRECAUTIONS: Activity as tolerated SUBJECTIVE: Lianna is pleasant and agreeable to participating in PT. She states that she continues to feel weak, globally. She states that she is not able to function and manage at home at this level and is still interested in pursuing SNF-level rehab. OBJECTIVE: PAIN: In p.m., patient c/o L-sided chest pain upon standing prior to gait training. Alerted nursing, STAT EKG ordered by ELECTRICAL CONTINUITY INSPECTOR. BED MOBILITY/TRANSFERS Sit-supine: I Sit-stand: SBA Stand-sit: SBA GAIT Assistive Device: FWW Weight bearing: Full Assist: SBA Distance: 30' x2 in a.m.; 10' in p.m. Deviation: Standing rest x1 in a.m., minimal SOB; hedl further gait training in p.m. due to reports of CP. THEREX: Patient was instructed in a LE strengthening program, completed in a standing position, to include: heel raises, hip flexion, hip abduction and SSH. Patient requires FWW support and SBA for safety. ASSESSMENT: Patient tolerated a.m. session well, although with complaint of minimal SOB and increased fatigue with gait training. She c/o CP in p.m., held further gait training and all therex. PLAN: Continue with global strengthening and general conditioning for improved activity tolerance. TREATMENT CODE/TIME: Session 1: 25 minutes; [id number], [id number] (11:25) Session 2: 15 minutes; [id number] (13:50) Session 1: 25 minutes; [id number], [id number] (11:25) Session 2: 15 minutes; [id number] (14:30)
--- NOTE | 2022-06-28 16:26 | CHAPLAIN ---
Lianna was up in the recliner when I visited this morning. She said she was hoping to be discharged today. Her was visiting with her. I explained my role and offered support.
[2022-06-28] MEDS: Enoxaparin 40 MG/0.4 ML SYR SC (17:53)
[2022-06-28] MEDS: Lidocaine 5% Patch 2 PATCH TP (19:56)
[2022-06-29] VITALS (10 sets, daily range): BP systolic 108–143; BP diastolic 60–80; PULSE 83–117; RESP 1–19; TEMP 36.2–37.1; O2SAT 93–100
[2022-06-29] MEDS: Ipratropium 0.5 MG/2.5 ML UPD VIAL UPD ×3 (05:12→17:11)
[2022-06-29 05:56] LABS: Abs Immature Grans 1.27 10^3/uL (0.0-0.06); Absolute Basophil Count 0.19 10^3/uL (0.0-0.2); Absolute Lymphocyte Count 1.22 10^3/uL (1.2-3.4); Basophils % 1.1; Eosinophils % 1.9; HGB 11.5 g/dL (11.2-15.7); Immature Grans % 7.5; Lymphocytes % 7.2; MCH 25.9 pg (27.0-33.0); MCHC 31.1 % (32.0-36.0); MCV 83 fL (80-95); Monocytes % 11.6; Neutrophils % 70.7; Nucleated RBC 0.4 % (0.0-0.3); Platelet Count 127 10^3/uL (130-400); RBC 4.44 10^6/uL (3.93-5.22)
[2022-06-29 06:05] LABS: Anion Gap 9.3 mmol/L (3-11); BUN 17 mg/dL (7-18); CO2 29.7 mmol/L (21.0-32.0); CREATININE 0.9 mg/dL (0.55-1.02); Calcium 9.8 mg/dL (8.5-10.1); Chloride 104 mmol/L (98-107); Estimated GFR 66.67 (mL/min/1.73m2); Glucose 89 mg/dL (74-106); Magnesium 1.6 mg/dL (1.8-2.4); Potassium 3.2 mmol/L (3.5-5.1); Sodium 143 mmol/L (136-145)
[2022-06-29 06:12] LABS: Absolute Eosinophil Count 0.32 10^3/uL (0.0-0.7); Absolute Monocyte Count 1.97 10^3/uL (0.1-0.8); Absolute Neutrophil Count 12.02 10^3/uL (1.2-6.7)
[2022-06-29 07:09] LABS: Diff Comment Diff Reviewed; RBC Morphology Normal
[2022-06-29] MEDS: predniSONE 20 MG TAB 40 MG PO (08:13)
[2022-06-29] MEDS: Acetaminophen 325 MG TAB PO (08:13)
[2022-06-29] MEDS: Pantoprazole 40 MG TABCR PO ×2 (08:14→20:29)
[2022-06-29] MEDS: guaiFENesin 600 MG TABCR PO ×2 (08:14→20:29)
[2022-06-29] MEDS: Normal Saline Flush 10 ML SYR IVP ×3 (08:21→15:46)
--- NOTE | 2022-06-29 09:15 | W.PM.PROGNOT ---
Date of Service Date of service: 06/29/22 Time of Service: 09:16 Assessment and Plan Assessment and plan (1) COPD (chronic obstructive pulmonary disease): Status: Acute Assessment and plan: Continue her home inhaled LABA and LAMA, give as needed DuoNeb treatments as needed. Oxygen as needed - currently not on home O2 - SPO2 here 90% on RA; 98 on 2 L Prednisone Incentive Spirometer Acapella Pantoprazole Qualifiers: COPD type: emphysema Emphysema type: centrilobular Qualified Code(s): J43.2 - Centrilobular emphysema (2) Dehydration: Status: Resolved Assessment and plan: Mild dehydration due to poor oral intake. BUN elevated 28 but creatinine 1.1 on initial evaluation. Encourage oral fluids (3) Generalized weakness: Status: Acute Assessment and plan: Consult physical therapy to assess fall safety risk as well as to promote exercise for reconditioning and improve her ambulatory status as well as to promote her ADL performance. PT rec: 1-2x/day, 7 days/week x 1 week. Initiate Physical Therapy intervention for strengthening, bed mobility, transfers, gait, stairs, balance training, use of assistive device. 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 but also AMRIK (she is followed both by Dr. Bhandari in pulmonary clinic and by Mary Alice Reed APN in [facility].? Monitor respiratory status and oxygen saturations Qualifiers: Laterality: unspecified laterality Qualified Code(s): C34.90 - Malignant neoplasm of unspecified part of unspecified bronchus or lung (6) Essential hypertension: Status: Chronic Assessment and plan: Stable - continue home medication Monitor (7) Atherosclerotic cardiovascular disease: Status: Acute Assessment and plan: Cath 2020 last echo 06/01/2022 Conclusion Normal left ventricular wall thickness and chamber size.? Estimated ejection fraction is 55 to 60%.? Wall motion is normal Right ventricle is not well visualized Both atria are normal in size The aortic valve is sclerotic and trileaflet without stenosis or regurgitation Mild mitral annular calcification with trace to mild regurgitation Normal tricuspid valve with trace regurgitation Telemetry discontinued - NSR no ectopy since admission (8) History of fracture of rib: Status: Acute Assessment and plan: Noted, on CT on last admission to be partially healed; today they are healed. Lidoderm patches for pain control, tylenol Physical therapy consultation to assess fall risk and to promote mobility and work on her generalized weakness - done (9) DVT prophylaxis: Status: Acute Assessment and plan: Enoxaparin (10) Discharge planning issues: Status: Acute Assessment and plan: SNF; second admission for dehydration in 30d; she and her are in agreement with this plan. DNR/DNI Discussed with Dr Holland Subjective Subjective Patient reports: no new complaints, tolerating a regular diet, voiding w/o difficulty and bowel movement; denies diarrhea, vomiting or shortness of breath Interval history since last seen: She complained of some right sided chest pain after speaking with PT regarding going home -it lasted about 5 min, went 100% away with rest - no increased WOB, no SOB, no diaphoresis, no nausea. She stated she felt stressed. We did an EKG; unchanged. Exam Narrative Exam Narrative: Patient is awake sitting in the chair pale, awake, alert, conversant - able to speak in full sentences, she has oxygen on. in the room. This afternoon she was seen by PT and was told she is doing much better; she feels unsafe to go home and would like to continue to seek rehab facility placement - I did let CM know Const General: cooperative, comfortable and no acute distress Orientation: alert, awake and oriented x3 HENMT Head: normal to inspection Ears: hearing grossly normal bilaterally and external ears normal Face and sinus: normal facial exam Mouth: moist mucous membranes abnormal (very dry) Throat: posterior oropharynx normal Other: Very dry Eyes General: appearance normal, both eyes and all related structures Pupils: PERRL EOM: EOM intact bilaterally Neck Neck: normal visual inspection and No submandibular swelling Lymphatic: no lymphadenopathy noted Chest Chest: normal inspection of the chest and no tenderness Resp Effort & Inspection: normal respiratory effort, able to speak in complete sentences, cough Quality of cough: dry, pursed lip breathing (occasionally noted), no retractions and not tachypneic Auscultation: diminished lung sounds bilaterally throughout Cardio Rate: tachycardic (100-130s) Rhythm: regular rhythm Heart Sounds: S1 normal and S2 normal GI Inspection: normal to inspection Palpation: soft, not firm, not rigid and nontender Auscultation: normal bowel sounds Back/Spine/Pelvis Thoracic/Lumbar Spine: thoracic and lumbar spine normal to inspection Pelvis: no pain with anterior-posterior compression Skin General skin exam: no rashes or lesions noted Neuro General: patient alert, patient awake, patient oriented x3 and moves all extremities Cognition: normal cognition Speech: speech normal Sensory Exam: no sensory deficits noted Extrem General: normal to inspection, full ROM, capillary refill normal, no calf tenderness bilaterally and no edema Psych Appearance: grossly normal Mental Status: mental status grossly normal Speech and Movement: speech and movement normal Affect: normal affect Objective Last Vital Signs Temp 37.1 C 06/29/22 07:45 Pulse 96 H 06/29/22 07:45 Resp 18 06/29/22 07:45 BP 139/66 06/29/22 07:45 Pulse Ox 94 06/29/22 07:45 Laboratory Results - last 24 hr 06/29/22 06/29/22 05:35 05:38 WBC 17.00 H RBC 4.44 Hgb 11.5 Hct 37.0 MCV 83 MCH 25.9 L MCHC 31.1 L RDW 15.0 H Plt Count 127 L MPV Immature Gran % 7.5 Neutrophils % 70.7 Lymphocytes % 7.2 Monocytes % 11.6 Eosinophils % 1.9 Basophils % 1.1 Nucleated RBC % 0.4 H Absolute Neutrophils 12.02 H Absolute Lymphocytes 1.22 Absolute Monocytes 1.97 H Absolute Eosinophils 0.32 Absolute Basophils 0.19 RBC Morphology Normal Sodium 143 Potassium 3.2 L Chloride 104 Carbon Dioxide 29.7 Anion Gap 9.3 BUN 17 Creatinine 0.9 Est GFR (CKD-EPI 2020) 66.67 Glucose 89 Calcium 9.8 Magnesium 1.6 L
[2022-06-29] MEDS: MAGNESIUM SULFATE 2 GM/50 ML BAG IVPB (10:15)
[2022-06-29] MEDS: Fosfomycin Tromethamine 3 GM PACKET PO (10:18)
--- NOTE | 2022-06-29 11:43 | PDOC.CMPRO ---
- If Service Date Differs Date of service: 06/29/22 Time of Service: 11:43 Care Management Progress Note S/O: Lianna was sleeping in her chair when CM attempted to meet with her. Later, CM spoke to PT, who stated that she discussed the possibility of Lianna returning home, as she is improving nicely, and Lianna reported that she feels too weak to return home. Lianna stated that she had chest pain, and was given a stat EKG. CM followed up on referrals that were sent. [facility] reviewing [facility] referral and have potential beds. No offer has been made at this time. CM met with Lianna later in the afternoon, and she stated that she is feeling weak, and feels that she can't return home in this condition. She stated that she went home about two weeks ago and returned quickly because she is too weak and can't breath with mobility. CM discussed sending her referral further, and the potential of her going to a [facility] facility of [facility] (in [place]). She prefers to be closer so her can visit, but she would consider it if the other facilities can't accept her. CM will continue to follow. A: Lianna is a 77 year old woman admitted with a COPD exacerbation and pneumonia P:Anticipate Lianna will transfer to a SNF for short term rehab prior to returning home.. She will follow up with the facility providers and plan of care. Transportation will be determined by final disposition. CM will continue to follow and support Lianna and her discharge planning needs.
[2022-06-29] MEDS: POTASSIUM CHLORIDE 20 MEQ/100 ML BAG 50 MEQ IVPB ×2 (11:53→13:44)
--- NOTE | 2022-06-29 14:00 | RT.EKG_ITS ---
APPROVED REPORT Exam: Resting ECG Reason for Exam: Chest pain Patient Location: I HR:85 bpm ECG Measurements Heart Rate 85 AXIS MI 110 P 72 QRSd 87 QRS 82 QT 345 T 73 QTc 411 Conclusion Sinus rhythm...normal P axis, V-rate 50- 99 Borderline short MI interval...MI int <120mS Borderline right axis deviation...QRS axis ( 81, 90) Nonspecific T abnrm, anterolateral leads...T <-0.10mV, I aVL V2-V6
[2022-06-29] MEDS: Levalbuterol 1.25 MG/3 ML UPD VIAL UPD (16:27)
[2022-06-29] MEDS: Enoxaparin 40 MG/0.4 ML SYR SC (17:20)
[2022-06-29] MEDS: Lidocaine 5% Patch 2 PATCH TP (20:29)
[2022-06-30 03:45] VITALS: BP 130/68; PULSE 80; RESP 18; TEMP 36.5; O2SAT 94
[2022-06-30 05:15] VITALS: PULSE 80; O2SAT 96
[2022-06-30] MEDS: Ipratropium 0.5 MG/2.5 ML UPD VIAL UPD ×2 (05:17→11:44)
[2022-06-30 07:11] LABS: Abs Immature Grans 1.58 10^3/uL (0.0-0.06); Absolute Basophil Count 0.16 10^3/uL (0.0-0.2); Absolute Monocyte Count 2.07 10^3/uL (0.1-0.8); Absolute Neutrophil Count 14.19 10^3/uL (1.2-6.7); Basophils % 0.8; Eosinophils % 1.5; HCT 38.5 % (36.0-46.0); HGB 12.1 g/dL (11.2-15.7); Lymphocytes % 7.1; MCH 25.9 pg (27.0-33.0); MCHC 31.4 % (32.0-36.0); MCV 82 fL (80-95); Monocytes % 10.5; Neutrophils % 72.1; Nucleated RBC 0.4 % (0.0-0.3); Platelet Count 124 10^3/uL (130-400); RBC 4.67 10^6/uL (3.93-5.22); RDW 15.5 % (11.7-14.6); RDW-SD 46.2 fL; WBC 19.68 10^3/uL (4.4-10.8)
[2022-06-30 07:24] LABS: Anion Gap 8.7 mmol/L (3-11); BUN 17 mg/dL (7-18); CO2 30.3 mmol/L (21.0-32.0); CREATININE 1.1 mg/dL (0.55-1.02); Calcium 9.8 mg/dL (8.5-10.1); Chloride 100 mmol/L (98-107); Glucose 88 mg/dL (74-106); Magnesium 1.9 mg/dL (1.8-2.4); Potassium 3.7 mmol/L (3.5-5.1); Sodium 139 mmol/L (136-145)
[2022-06-30 07:39] VITALS: BP 152/76; PULSE 98; RESP 18; TEMP 36.9; O2SAT 94
[2022-06-30 08:14] LABS: Diff Comment Agrees w/ Instrument; RBC Morphology Normal
[2022-06-30] MEDS: Acetaminophen 325 MG TAB PO (08:46)
[2022-06-30] MEDS: guaiFENesin 600 MG TABCR PO (08:46)
[2022-06-30] MEDS: predniSONE 20 MG TAB 40 MG PO (08:47)
[2022-06-30] MEDS: Pantoprazole 40 MG TABCR PO (08:47)
[2022-06-30] MEDS: Normal Saline Flush 10 ML SYR IVP (08:47)
[2022-06-30 09:39] LABS: Lab Add On Test DONE
[2022-06-30 10:14] VITALS: BP 114/70; PULSE 102; RESP 16; TEMP 36.9; O2SAT 95
[2022-06-30 10:18] LABS: Procalcitonin 0.5 ng/mL
--- NOTE | 2022-06-30 10:28 | PDOC.CMPRO ---
- If Service Date Differs Date of service: 06/30/22 Time of Service: 10:28 Care Management Progress Note S/O: Lianna was A: Lianna is a 77 year old woman admitted with a COPD exacerbation and pneumonia P:Anticipate Lianna will transfer to a SNF for short term rehab prior to returning home.. She will follow up with the facility providers and plan of care. Transportation will be determined by final disposition. CM will continue to follow and support Lianna and her discharge planning needs.
[2022-06-30 11:20] VITALS: BP 98/58; PULSE 110; RESP 18; TEMP 36.3; O2SAT 100
[2022-06-30 11:44] VITALS: O2SAT 94
[2022-06-30 11:46] LABS: Bilirubin Negative (Negative); Blood Negative (Negative); Clarity Clear (Clear); Glucose Negative (Negative); Ketones Negative (Negative); Leukocyte Esterase Negative (Negative); Nitrite Negative (Negative); Specific Gravity 1.025 (1.005-1.025); Urobilinogen 0.2 EU/dL (Up TO 0.2)
--- NOTE | 2022-06-30 12:36 | DSE_ITS ---
Date of service: 06/30/22 Time of Service: 12:37 DS: Diagnosis Discharge Diagnosis (1) COPD (chronic obstructive pulmonary disease): Status: Acute (2) Dehydration: Status: Resolved (3) Generalized weakness: Status: Acute (4) Nausea: Status: Resolved (5) Non-small cell carcinoma of lung: Status: Chronic (6) Essential hypertension: Status: Chronic (7) Atherosclerotic cardiovascular disease: Status: Acute (8) History of fracture of rib: Status: Acute (9) DVT prophylaxis: Status: Acute (10) Discharge planning issues: Status: Acute Discharge Plan Disposition Patient Disposition: [facility] Facility(SNF) Condition: Improving Discharge Details Reason For Visit: Acute Exacerbation of COPD w/ Hypoxia, Dehydration Admit Date/Time: 06/24/22 16:03 Admit Provider: Malia Solo Attending Provider: Malia Solo Primary Care Provider: Candelaria Pereira Hospital Course Hospital Course: This is a 77yo F patient with a history of multiple?bilateral pneumothoraces in the past, COPD, coronary artery disease, hypertension and NSCLC (adenocarcionoma, 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 but also AMRIK (she is followed both by Dr. Bhandari in pulmonary clinic and by Mary Alice Reed APN in [facility]). She? presented to the [facility] ED for increasing dyspnea on exertion and dizziness for 5 days with a sensation of increased heart rate. She was also complaing of some nausea. She was seen in the ED on 05/[address] that showed left sided 5th and 8th ribs incompletely healed fractures. She was prescribed lidocaine patches and ibuprofen. She reported the pain had been keeping her awake at night and it hurt more when she coughed. She reports decreased oral intake secondary to the pain. On evaluation in the ED she was noted to be tachypneic and tachycardic w/ hr 128 bmp and RR 20, no fever and no hypotension. Labs revealed that she was moderately dehydrated w/ BUN 45 but normal creatinine 0.9. She was going to be discharged to home, however, when the ED attempted to walk her she was too weak, even after they fed her. She was admitted for pain control and rehydration. She was discharged to home on 05/31 with home health physical therapy services. She returned to the ED on 06/07 for difficulty breathing for 2 days. She was treated for COPD,there was no evidence of pulmonary embolism, thoracic aortic dissection or aneurysm. Her ribs were healing. She was discharged to home with lidocaine patch and to follow up with PCP. She had a telehealth appointment with PCP on 06/10. She was offered home oxygen in light of home health reporting her increased oxygen requirement and continued difficulty breathing. She declined at that time. She returned to the ED on 06/30/22 with complaint of difficulty breathing, fatigue, tachycardia and was found to be hypoxic. She was admitted for treatment of her exacerbation of COPD. She was also found to have a UTI on culture. She completed treatment for that. She has been receiving nebulizers and is on Prednisone 40 mg daily. Her WBC is increased, secondary to steroids. She has no fever, no nausea, denies pain. She is less short of breath, however continues to be weak and physical therapy recommended a short stay at rehab to gain strength to be successful at home. , the patient, her and we agree, to gain strength to be successful at home. She will require oxygen at home when she is discharged from rehab. Her vital signs are stable. She is being discharged to [facility]. Discussed with Dr Talbert Ola Meds and New Rx's Prescriptions: New prednisone 20 mg Tablet 40 mg PO DAILY Qty: 0 0RF (DME) Oxygen Tank See Rx Instructions .ROUTE Qty: 1 0RF Rx Instructions: As directed Continued ipratropium-albuterol 0.5 mg-3 mg(2.5 mg base)/3 mL solution for nebulization 3 ml inhalation QID PRN (Reason: wheezing/COPD J43.2) Qty: 90 3RF (DME) Space Chamber Plus 1 EACH spacer 1 ea Miscellaneous PRN Qty: 1 albuterol sulfate [ProAir HFA] 90 mcg/actuation HFA aerosol inhaler 2 puff Inhalation Q4H PRN Qty: 2 4RF Breztri Aerosphere 160-9-4.8 mcg/actuation HFA aerosol inhaler See Rx Instructions .ROUTE .COMPLEX Qty: 10.7 8RF Dose Instruction: INHALE TWO PUFFS BY MOUTH TWICE A DAY FOR COPD Rx Instructions: INHALE TWO PUFFS BY MOUTH TWICE A DAY FOR COPD acetaminophen [Tylenol] 325 mg tablet 325 mg PO DAILY PRN lidocaine 5 % Adhesive Patch,Medicated 2 patch topical HS Qty: 0 0RF Discharge Instructions Instructions: Chest Pain (DC), Dehydration (DC) Stand Alone Forms: Nursing Discharge Form [facility]: [facility] [REPORT RECIPIENT] - Activity:: Activity as Tolerated Equipment/Supplies:: Oxygen (L/min Below) Diet:: Low Sodium Discharge Orders Discharge Orders: Discharge Order (Routine); Ordered 06/30/22 Ordered By: Parris Sage DS: Summary Time Spent with Patient providing and/or coordinating discharge services: Greater than 30 minutes Status at Discharge Functional status at discharge: uses cane/walker Overall status at discharge: patient is progressing back to baseline Mental Status: mental status grossly normal Speech and Movement: speech and movement normal Mood: anxious mood Affect: normal affect Exam Narrative Exam Narrative: Patient is awake sitting on the side of the bed. present. She continues to have oxygen on. She continues to want to go to rehab. She states she was unable to ambulate to the bathroom today without needing to rest. Const General: cooperative, comfortable and no acute distress Orientation: alert, awake and oriented x3 HENMT Head: normal to inspection Ears: hearing grossly normal bilaterally and external ears normal Face and sinus: normal facial exam Mouth: moist mucous membranes abnormal (very dry) Throat: posterior oropharynx normal Other: Very dry Eyes General: appearance normal, both eyes and all related structures Pupils: PERRL EOM: EOM intact bilaterally Neck Neck: normal visual inspection and No submandibular swelling Lymphatic: no lymphadenopathy noted Chest Chest: normal inspection of the chest and no tenderness Resp Effort & Inspection: normal respiratory effort, able to speak in complete sentences, cough Quality of cough: dry, pursed lip breathing (occasionally noted), no retractions and not tachypneic Auscultation: diminished lung sounds bilaterally throughout Cardio Rate: tachycardic (100-130s) Rhythm: regular rhythm Heart Sounds: S1 normal and S2 normal GI Inspection: normal to inspection Palpation: soft, not firm, not rigid and nontender Auscultation: normal bowel sounds Back/Spine/Pelvis Thoracic/Lumbar Spine: thoracic and lumbar spine normal to inspection Pelvis: no pain with anterior-posterior compression Skin General skin exam: no rashes or lesions noted Neuro General: patient alert, patient awake, patient oriented x3 and moves all extremities Cognition: normal cognition Speech: speech normal Sensory Exam: no sensory deficits noted Extrem General: normal to inspection, full ROM, capillary refill normal, no calf tenderness bilaterally and no edema Psych Appearance: grossly normal Mental Status: mental status grossly normal Speech and Movement: speech and movement normal Mood: anxious mood Affect: normal affect DS: Data Vitals/I&O Vitals and I&O: Vital Signs Temperature 36.3 C L 06/30/22 11:20 Temperature Source Tympanic 06/30/22 11:20 Pulse 110 H 06/30/22 11:20 Pulse Rhythm Regular 06/30/22 05:45 Pulse 109 H 06/24/22 17:15 Respiratory Rate 18 06/30/22 11:20 Respiratory Effort Non-Labored 06/30/22 05:45 Respiratory Depth Normal 06/30/22 05:45 Respiratory Pattern Normal 06/30/22 05:45 Blood Pressure 98/58 L 06/30/22 11:20 Blood Pressure Mean 78 06/24/22 17:15 Pulse Oximetry 94 06/30/22 11:44 Oxygen Delivery Method Nasal Cannula 06/30/22 11:20 Oxygen Flow Rate 1.5 06/30/22 11:20 Pain Level 0 06/30/22 11:20 Comment 06/30/22 07:39 Intake & Output 06/29/22 06/30/22 06/30/22 23:59 11:59 23:59 Intake Total 352.5 / 852.5 Output Total 200 / 900 600 / 600 Balance 152.5 / -47.5 -600 / -600 Weight 44.5 kg Intake: IV 192.5 / 192.5 Oral 160 / 660 Output: Urine 200 / 900 600 / 600 Other: Urine Color Yellow Urine Appearance Clear Clear Stool Size Small Stool Characteristics Hard Voiding Methods Bedside Commode Bedside Commode Data Completed and Pending Labs on day of discharge: Labs from last 24 hours 06/30/22 06/30/22 06/30/22 11:32 06:47 06:47 WBC RBC Hgb Hct MCV MCH MCHC RDW Plt Count MPV Immature Gran % Neutrophils % Lymphocytes % Monocytes % Eosinophils % Basophils % Nucleated RBC % Absolute Neutrophils Absolute Lymphocytes Absolute Monocytes Absolute Eosinophils Absolute Basophils RBC Morphology Sodium Potassium Chloride Carbon Dioxide Anion Gap BUN Creatinine Est GFR (CKD-EPI 2020) Glucose Calcium Magnesium Procalcitonin 0.5 Urine Color Yellow Urine Clarity Clear Urine pH 6.0 Ur Specific [place] 1.025 Urine Protein Negative Urine Ketones Negative Urine Blood Negative Urine Nitrite Negative Urine Bilirubin Negative Urine Urobilinogen 0.2 Ur Leukocyte Esterase Negative Urine Glucose Negative Add-On Test Request DONE 06/30/22 06/30/22 06:47 06:47 WBC 19.68 H RBC 4.67 Hgb 12.1 Hct 38.5 MCV 82 MCH 25.9 L MCHC 31.4 L RDW 15.5 H Plt Count 124 L MPV Immature Gran % 8.0 Neutrophils % 72.1 Lymphocytes % 7.1 Monocytes % 10.5 Eosinophils % 1.5 Basophils % 0.8 Nucleated RBC % 0.4 H Absolute Neutrophils 14.19 H Absolute Lymphocytes 1.40 Absolute Monocytes 2.07 H Absolute Eosinophils 0.30 Absolute Basophils 0.16 RBC Morphology Normal Sodium 139 Potassium 3.7 Chloride 100 Carbon Dioxide 30.3 Anion Gap 8.7 BUN 17 Creatinine 1.1 H Est GFR (CKD-EPI 2020) 52.40 Glucose 88 Calcium 9.8 Magnesium 1.9 Procalcitonin Urine Color Urine Clarity Urine pH Ur Specific [place] Urine Protein Urine Ketones Urine Blood Urine Nitrite Urine Bilirubin Urine Urobilinogen Ur Leukocyte Esterase Urine Glucose Add-On Test Request [facility] All Active Problems (Updated 06/29/22 @ 09:13 by Parris Sage NP) Palliative care patient (Acute) DVT prophylaxis (Acute) Discharge planning issues (Acute) Carotid artery stenosis (Chronic) right 15-49% in 2019; known left ICA occlusion Essential hypertension (Chronic 06/24/13) Hyperlipidemia (Chronic) Peripheral vascular disease (Chronic) s/p femoral stent at [facility] Tubular adenoma (Chronic 03/07/16) Colonoscopy 03/07/16 - 5 yr plan; colonoscopy 02/2022 at [facility]; tubular adenoma and tubulovillous adenomas Sciatica (Acute) COPD (chronic obstructive pulmonary disease) (Acute) Atherosclerotic cardiovascular disease (Acute) cardiac cath in 2020 with nonobstructive disease Left lower lobe pulmonary nodule (Acute) Generalized weakness (Acute) Dizziness (Acute) History of fracture of rib (Acute) Non-small cell carcinoma of lung (Chronic ~05/2019) Biopsied at [facility]; followed by [facility] pulm and [facility] oncology. 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 October 05, 2018 while in-patient. Has not smoked since. 03/20/19 - Admits to 1 cigaret 1-2 per week. 12/19/19 - smoking 3-4 /day -01/2020 - QUIT again 03/16/21 - Reports NONE since 04/2020 Hx of non-ST elevation myocardial infarction (NSTEMI) (2019) in the setting of pneumothorax Pneumothorax on left Initial 01/02/20 LEFT Repeat spont. LEFT pneumothorax - 05/01/20 Repeat spont. pneumothorax (#3) LEFT 01/2021 Polyp of colon Primary malignant neoplasm of cervix s/p hyst Ruptured emphysematous bleb of lung Squamous cell carcinoma of skin UPJ obstruction, acquired chronic bilateral hydronephrosis on CT Surgical History (Updated 06/01/22 @ 08:07 by Candelaria Pereira MD) Colonoscopy - [facility] (03/07/16) Dr Parisi excision CIS R buttock 2008 History of discectomy History of excision of mass History of lung biopsy (~2015) S/P hysterectomy fibroid uterus ovaries remain Status post breast biopsy Status post carpal tunnel release Status post cholecystectomy Family History Mother , 65 Cancer Sister , 65 Breast cancer Father , 75 Heart disease Sister Cancer Sister No problems noted. Brother Bone cancer Lung cancer Daughter No problems noted. Daughter No problems noted. Son No problems noted. Brother No problems noted. Maternal Grandfather No problems noted. Paternal Grandfather No problems noted. Maternal Grandmother No problems noted. Paternal Grandmother No problems noted. Social History Smoking/Tobacco Use Status: Former Tobacco Use tobacco type: cigarettes Quit Date: 10/05/18 Tobacco: How many years used: 57 Second Hand Exposure: Yes Counseling given: patient declined Smoking risk assessment performed?: Yes Alcohol Intake: never Substance use type: does not use Details: Quit smoking while in-patient. Caregiver/Support person: No Household members: spouse Housing: house Communication Needs: None Do you need help understanding health information?: Never Pets and animals: No Sexually active: No Do you think of yourself as: straight/heterosexual Current gender identity: female What is your relationship status?: How often do you talk on the phone with friends or family?: once per week Do you belong to any clubs or organized social groups?: no Panel score (0-1 are the most socially isolated patients): 1 What type of physical activity do you participate in: walking Duration: < 15 minutes/day Frequency: daily Special sonia needs: No Seatbelt use: always Drive intox or ride 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
--- NOTE | 2022-06-30 13:13 | PTTR_ITS ---
Date of service: 06/30/22 Time of Service: 09:25 PT Notes Visit Reasons: Acute Exacerbation of COPD w/ Hypoxia, Dehydration Inpatient Physical Therapy Treatment Note [facility] Date: 06/30/2022 PRECAUTIONS: Activity as tolerated SUBJECTIVE: Lianna is pleasant and agreeable to participating in PT. She states that she continues to feel weak, globally. She reports that she has been SOB this morning. OBJECTIVE: Patient was noted to be tachycardic, 140-155 bpm, with gait training. Nursing alerted, nursing request to hold further PT interventions. PAIN: Patient c/o chest pain with gait training BED MOBILITY/TRANSFERS Sit-supine: I Supine-sit: I Sit-stand: SBA Stand-sit: SBA GAIT Assistive Device: FWW Weight bearing: Full Assist: SBA Distance: 15' Deviation: Seated rest, patient noted to be tachycardic, nursing alerted THEREX: Held due to tachycardia ASSESSMENT: Patient tolerated a.m. session with complaint of minimal SOB and in creased fatigue with gait training, as well as CP. Held further gait training and all therex. PLAN: Patient to discharge to SNF-level rehab later today, per provider. TREATMENT CODE/TIME: 25 minutes; [id number] x2 (09:25)
--- NOTE | 2022-06-30 13:33 | NUR.NOTE ---
Nursing Note: [facility]
--- NOTE | 2022-06-30 15:57 | CMDISCH_ITS ---
- If Service Date Differs Date of service: 06/30/22 Time of Service: 15:57 LACE Index Scoring Tool - Questions: Length of Stay (in days): 4 - 6 Acuity (Admit via E.D.?): Yes Comorbidities: PVD, Chronic Pulmonary Disease, Metastatic Solid Tumor E.D. Visits: 3 - Answers: Total Score: 15 Risk of Readmission: High Risk Care Management Discharge Reason for Hospitalization: COPD Discharge Plan: Lianna will be transferred to [facility] for short term rehab prior to returning home. She will follow up with the facility providers and plan of care and will transport via facility van. Patient/Family Education Needs: Review of discharge instructions, medications, activity, limitations, follow up plan, Ask Me Three Services Needed at Discharge: Senior Living Facility
== END 2022-06-30 13:40 | disposition skilled nursing facility (03) | DRG 191 ==
LOC: ER 17:42 → MS 17:45
PROVIDERS: Nurse Practitioner Family; Admitting Provider Internal Medicine; Emergency Provider Emergency Medicine; PCP Family Medicine; Visit Provider Internal Medicine
DX: J43.2 Centrilobular emphysema (principal); C34.11 Malignant neoplasm of upper lobe, right bronchus or lung; C34.12 Malignant neoplasm of upper lobe, left bronchus or lung; Z68.1 Body mass index [BMI] 19.9 or less, adult; E86.0 Dehydration; R53.1 Weakness; R11.0 Nausea; I25.10 Atherosclerotic heart disease of native coronary artery without angina pectoris; I10 Essential (primary) hypertension; Z66 Do not resuscitate; Z92.3 Personal history of irradiation; R19.7 Diarrhea, unspecified; R05.8 Other specified cough; E78.5 Hyperlipidemia, unspecified; I73.9 Peripheral vascular disease, unspecified; I65.22 Occlusion and stenosis of left carotid artery; R63.4 Abnormal weight loss; K57.30 Diverticulosis of large intestine without perforation or abscess without bleeding; I25.2 Old myocardial infarction; Z87.891 Personal history of nicotine dependence
CPT/HCPCS: 36415; 71275; 80048; 80053; 82805; 84145; 87077; 87637; 93005; 94640; 96361; 96372; 97110; 97162; 97530; 99285; J1650; 71045; 81003; 81015; 83605; 83735; 83880; 84484; 85025; 85610; 85730; 87086; 87186; 93010; 94667; 99222; 99232; 99239; J1100; J2405; J3480; J3490; J7512; J7614; J7620; J7644

== ENCOUNTER → 2022-07-12 12:02 | Outpatient (CLI) | payer MEDICARE, SELFPAY ==
--- NOTE | 2022-07-12 | DI.RAD_ITS ---
Exam(s) XR CHEST 2V PA LATERAL EXAM: XR CHEST 2V PA LATERAL CLINICAL HISTORY: ACUTE MID BACK PAIN, HX SPONTANEOUS PNEUMOTHORAX. TECHNIQUE: 2D digital imaging was performed. COMPARISON: CR XR PORTABLE CHEST AP from 06/24/2022 FINDINGS: 2 views: Heart size is normal. The mediastinum is not widened. Bilateral hyperinflation again noted. Right upper lobe scarring again noted. Lungs are clear. No infiltrates nor pleural effusions. IMPRESSION: No obvious acute pulmonary findings.Hyperinflation COPD again noted. If clinically indicated follow- up CT scan can be performed. DATA REPOSITORY: RADIATION DOSE DELIVERED:
== END ==
PROVIDERS: PCP Family Medicine; Visit Provider Family Medicine
DX: M54.9 Dorsalgia, unspecified (principal); J44.9 Chronic obstructive pulmonary disease, unspecified
CPT/HCPCS: 71046

== ENCOUNTER 2022-07-14 13:14 | Emergency (ER) | payer MEDICARE, SELFPAY ==
[2022-07-14] VITALS (27 sets, daily range): BP systolic 114–129; BP diastolic 57–65; PULSE 91–148; RESP 17–24; TEMP 36.6; O2SAT 93–100
--- NOTE | 2022-07-14 13:00 | RT.EKG_ITS ---
APPROVED REPORT Exam: Resting ECG Reason for Exam: chest pain Patient Location: E HR:100 bpm ECG Measurements Heart Rate 100 AXIS MN 110 P 84 QRSd 64 QRS 87 QT 311 T 42 QTc 400 Conclusion Sinus tachycardia...rate> 99 Sinus. Normal axis. No STEMI. I have reviewed and interpreted ECG and agree with software generated interpretation.
--- NOTE | 2022-07-14 14:06 | DI.RAD_ITS ---
Exam(s) XR CHEST 2V PA LATERAL EXAM: XR CHEST 2V PA LATERAL CLINICAL HISTORY: pain TECHNIQUE: 2D digital imaging was performed. COMPARISON: CR,XR XR PORTABLE CHEST AP from 05/28/2022 CR XR PORTABLE CHEST AP from 06/24/[address] CHEST PE CTA from 06/24/2022 CR XR CHEST 2V PA LATERAL from 07/12/2022 FINDINGS: HEART: Normal size. Aorta: Not dilated. Calcification at arch. PULMONARY VASCULATURE: Normal. LUNGS: Markedly hyperinflated. Emphysematous changes. Areas of scarring, greatest right upper lobe. No infiltrate PLEURAL SPACE: No pleural effusion or pneumothorax. BONE:Unremarkable for age. IMPRESSION: Emphysematous changes and scarring. No acute abnormality. DATA REPOSITORY: RADIATION DOSE DELIVERED:
[2022-07-14 14:25] LABS: Abs Immature Grans 0.92 10^3/uL (0.0-0.06); Absolute Eosinophil Count 0.33 10^3/uL (0.0-0.7); Absolute Monocyte Count 1.99 10^3/uL (0.1-0.8); Basophils % 1.1; Eosinophils % 2.1; HCT 40.4 % (36.0-46.0); HGB 12.3 g/dL (11.2-15.7); Immature Grans % 5.8; Lymphocytes % 10.8; MCH 25.9 pg (27.0-33.0); MCHC 30.4 % (32.0-36.0); MCV 85 fL (80-95); MPV 12.2 fL (8.0-11.0); Monocytes % 12.6; Neutrophils % 67.6; Nucleated RBC 0.2 % (0.0-0.3); Platelet Count 109 10^3/uL (130-400); RBC 4.74 10^6/uL (3.93-5.22); RDW 16.2 % (11.7-14.6); WBC 15.77 10^3/uL (4.4-10.8)
[2022-07-14 14:30] LABS: Absolute Basophil Count 0.17 10^3/uL (0.0-0.2); Absolute Neutrophil Count 10.66 10^3/uL (1.2-6.7)
[2022-07-14 14:41] LABS: Diff Comment Diff Reviewed; RBC Morphology Normal
[2022-07-14 14:42] LABS: PTT Activated 24.9 sec (21.0-27.5)
--- NOTE | 2022-07-14 14:46 | ED.GENADUL_ITS ---
Discharge Plan Discharge Details Chief Complaint: GenMedical Primary Care Provider: Candelaria Pereira ED Provider: John Dunne Home Meds and New Rx's Prescriptions: No Action ipratropium-albuterol 0.5 mg-3 mg(2.5 mg base)/3 mL solution for nebulization 3 ml inhalation QID PRN (Reason: wheezing/COPD J43.2) Qty: 90 3RF (DME) Space Chamber Plus 1 EACH spacer 1 ea Miscellaneous PRN Qty: 1 albuterol sulfate [ProAir HFA] 90 mcg/actuation HFA aerosol inhaler 2 puff Inhalation Q4H PRN Qty: 2 4RF Breztri Aerosphere 160-9-4.8 mcg/actuation HFA aerosol inhaler See Rx Instructions .ROUTE .COMPLEX Qty: 10.7 8RF Dose Instruction: INHALE TWO PUFFS BY MOUTH TWICE A DAY FOR COPD Rx Instructions: INHALE TWO PUFFS BY MOUTH TWICE A DAY FOR COPD acetaminophen [Tylenol] 325 mg tablet 325 mg PO DAILY PRN prednisone 20 mg Tablet 40 mg PO DAILY Qty: 0 0RF (DME) Oxygen Tank See Rx Instructions .ROUTE Qty: 1 0RF Rx Instructions: As directed lidocaine 5 % Adhesive Patch,Medicated 2 patch topical HS Qty: 0 0RF Medical Decision Making This is a pleasant 77-year-old female presenting for back pain however she denies any pain now after taking her oxycodone. She denies recent trauma. Unfortunately she is a rather vague and poor historian. Clinically she appears well, nontoxic, does present with tachycardia. History of spontaneous pneumothorax. Plan is to initiate a cardiac work-up including a 2 view chest x- ray which I would like expedited to rule out pneumothorax. X-ray reveals emphysematous changes and scarring, no acute abnormality. We will add on a D-dimer to her work-up. Without any therapy, heart rate now in the 90s. Laboratory values reveal leukocytosis, this appears to be chronic. No evidence of anemia. Platelet count 109, patient with what appears to be chronic thrombocytopenia. D-dimer is over 4000. Plan to obtain CTA of the chest and will extend the CT to further evaluate her aorta with an abdominal and pelvic CT. Electrolytes unremarkable, creatinine 1.1 with a GFR of 52.40. Magnesium 2.1, alk phosphatase elevated but this appears to be baseline, but trending upward. CT imaging will also evaluate for potential mets. Troponin less than 50. COVID, flu, RSV negative. At time of signout awaiting CTA of the chest abdomen pelvis as well as a delta troponin, reevaluation and final disposition. Standard discharge and return precautions were provided. Patient understands, is agreeable to this plan, and has no additional questions or concerns upon discharge. This documentation was generated using [employer]ation system, please disregard any oddities of phrase or misspellings. Medical Records Medical records reviewed: Yes I reviewed the patient's medical records. Imaging Data Radiologic Study: Attestation: I personally reviewed and interpreted this imaging study as follows: Imaging: X-Ray Radiologist's impression: Exam(s) XR CHEST 2V PA LATERAL EXAM: XR CHEST 2V PA LATERAL CLINICAL HISTORY: pain TECHNIQUE: 2D digital imaging was performed. COMPARISON: CR,XR XR PORTABLE CHEST AP from 05/28/2022 CR XR PORTABLE CHEST AP from 06/24/[address] CHEST PE CTA from 06/24/2022 CR XR CHEST 2V PA LATERAL from 07/12/2022 FINDINGS: HEART: Normal size. Aorta: Not dilated. Calcification at arch. PULMONARY VASCULATURE: Normal. LUNGS: Markedly hyperinflated. Emphysematous changes. Areas of scarring, greatest right upper lobe. No infiltrate PLEURAL SPACE: No pleural effusion or pneumothorax. BONE:Unremarkable for age. IMPRESSION: Emphysematous changes and scarring. No acute abnormality. Lab Data Lab results reviewed: Yes I reviewed the patient's lab results. Labs: Laboratory Tests Range/Units 07/14/22 07/14/22 07/14/22 14:11 14:19 14:19 WBC (4.4-10.8) 10^3/uL 15.77 H RBC (3.93-5.22) 10^6/uL 4.74 Hgb (11.2-15.7) g/dL 12.3 Hct (36.0-46.0) % 40.4 MCV (80-95) fL 85 MCH (27.0-33.0) pg 25.9 L MCHC (32.0-36.0) % 30.4 L RDW (11.7-14.6) % 16.2 H Plt Count (130-400) 10^3/uL 109 L MPV (8.0-11.0) fL 12.2 H Immature Gran % 5.8 Neutrophils % 67.6 Lymphocytes % 10.8 Monocytes % 12.6 Eosinophils % 2.1 Basophils % 1.1 Nucleated RBC % (0.0-0.3) % 0.2 Absolute Neutrophils (1.2-6.7) 10^3/uL 10.66 H Absolute Lymphocytes (1.2-3.4) 10^3/uL 1.70 Absolute Monocytes (0.1-0.8) 10^3/uL 1.99 H Absolute Eosinophils (0.0-0.7) 10^3/uL 0.33 Absolute Basophils (0.0-0.2) 10^3/uL 0.17 RBC Morphology Normal PT (9.3-11.0) sec INR (0.9-1.1) APTT (21.0-27.5) sec D-Dimer (<500) ng/mlFEU Sodium (136-145) mmol/L 138 Potassium (3.5-5.1) mmol/L 3.7 Chloride (98-107) mmol/L 100 Carbon Dioxide (21.0-32.0) mmol/L 29.2 Anion Gap (3-11) mmol/L 8.8 BUN (7-18) mg/dL 20 H Creatinine (0.55-1.02) mg/dL 1.1 H Est GFR (CKD-EPI 2020) (mL/min/1.73m2) 52.40 Glucose (74-106) mg/dL 124 H Calcium (8.5-10.1) mg/dL 10.1 Magnesium (1.8-2.4) mg/dL 2.1 Total Bilirubin (0.2-1.0) mg/dL 0.8 AST (15-37) U/L 26 ALT (14-59) U/L 9 L Alkaline Phosphatase (46-116) U/L 353 H Troponin I (<or=60) ng/L < 50 Total Protein (6.4-8.2) g/dL 7.4 Albumin (3.4-5.0) g/dL 3.0 L COVID-19 Source Not Applicable SARS-CoV-2 (PCR) (Negative) Negative Influenza Type A (PCR) (Negative) Negative Influenza Type B (PCR) (Negative) Negative RSV (PCR) (Negative) Negative Range/Units 07/14/22 07/14/22 14:19 14:19 WBC (4.4-10.8) 10^3/uL RBC (3.93-5.22) 10^6/uL Hgb (11.2-15.7) g/dL Hct (36.0-46.0) % MCV (80-95) fL MCH (27.0-33.0) pg MCHC (32.0-36.0) % RDW (11.7-14.6) % Plt Count (130-400) 10^3/uL MPV (8.0-11.0) fL Immature Gran % Neutrophils % Lymphocytes % Monocytes % Eosinophils % Basophils % Nucleated RBC % (0.0-0.3) % Absolute Neutrophils (1.2-6.7) 10^3/uL Absolute Lymphocytes (1.2-3.4) 10^3/uL Absolute Monocytes (0.1-0.8) 10^3/uL Absolute Eosinophils (0.0-0.7) 10^3/uL Absolute Basophils (0.0-0.2) 10^3/uL RBC Morphology PT (9.3-11.0) sec 10.0 INR (0.9-1.1) 1.0 APTT (21.0-27.5) sec 24.9 D-Dimer (<500) ng/mlFEU 4002 H Sodium (136-145) mmol/L Potassium (3.5-5.1) mmol/L Chloride (98-107) mmol/L Carbon Dioxide (21.0-32.0) mmol/L Anion Gap (3-11) mmol/L BUN (7-18) mg/dL Creatinine (0.55-1.02) mg/dL Est GFR (CKD-EPI 2020) (mL/min/1.73m2) Glucose (74-106) mg/dL Calcium (8.5-10.1) mg/dL Magnesium (1.8-2.4) mg/dL Total Bilirubin (0.2-1.0) mg/dL AST (15-37) U/L ALT (14-59) U/L Alkaline Phosphatase (46-116) U/L Troponin I (<or=60) ng/L Total Protein (6.4-8.2) g/dL Albumin (3.4-5.0) g/dL COVID-19 Source SARS-CoV-2 (PCR) (Negative) Influenza Type A (PCR) (Negative) Influenza Type B (PCR) (Negative) RSV (PCR) (Negative) ECG Data Attestation: I personally reviewed and interpreted this ECG (s) as follows: Interpretation: Sinus tachycardia, ventricular rate of 100. No STEMI. HPI General Mode of arrival: EMS . Date/Time Provider Initiated Documentation: 07/14/22 13:26 . Limitations to Documentation: no limitations . Information obtained by: patient and EMS . HPI Narrative: This is a 77-year-old female with a past medical history of COPD, nonsmall cell lung CA, hypertension, former smoker, STEMI, pneumothorax, rib fracture, admission earlier this month for weakness and dehydration, now presenting to the ER for ongoing back pain. Unfortunately patient is a rather vague and poor historian. Patient reports that she has no pain now as she was given a hydrocodone. She denies recent illness, trauma, headache, neck pain, chest pain, shortness of breath abdominal pain, nausea, vomiting, change in bowel or bladder function, pain or swelling her lower extremities. Nothing makes the pain worse. Related Data Home Medications Medication Instructions Recorded Confirmed inhalational spacing device (Space ##1 06/09/16 06/24/22 Chamber Plus) acetaminophen 325 mg tablet 325 mg PO DAILY PRN 04/08/21 06/24/22 (Tylenol) ipratropium 0.5 mg-albuterol 3 mg 3 ml inhalation QID PRN 05/07/21 06/24/22 (2.5 mg base)/3 mL nebulization wheezing/COPD J43.2 #90 mL soln albuterol sulfate 90 mcg/actuation 2 puff inhalation Q4H PRN ##2 11/18/21 06/24/22 aerosol inhaler (ProAir HFA) budesonide 160 mcg-glycopyr 9 See Rx Instructions .Route 03/15/22 06/24/22 mcg-formot 4.8 mcg/actuation HFA .COMPLEX #10.7 grams inhaler (Breztri Aerosphere) lidocaine 5 % topical patch 2 patch topical HS #0 ea 05/31/22 06/24/22 Oxygen #1 ea 06/30/22 prednisone 20 mg tablet 40 mg PO DAILY #0 tabs 06/30/22 Previous Rx's Medication Instructions Recorded ipratropium 0.5 mg-albuterol 3 mg 3 ml inhalation QID PRN 05/07/21 (2.5 mg base)/3 mL nebulization wheezing/COPD J43.2 #90 mL soln albuterol sulfate 90 mcg/actuation 2 puff inhalation Q4H PRN ##2 11/18/21 aerosol inhaler (ProAir HFA) budesonide 160 mcg-glycopyr 9 See Rx Instructions .Route 03/15/22 mcg-formot 4.8 mcg/actuation HFA .COMPLEX #10.7 grams inhaler (Breztri Aerosphere) lidocaine 5 % topical patch 2 patch topical HS #0 ea 05/31/22 Oxygen #1 ea 06/30/22 prednisone 20 mg tablet 40 mg PO DAILY #0 tabs 06/30/22 Allergies Allergy/AdvReac Type Severity Reaction Status Date / Time Tetanus Vaccines and Toxoid Allergy Mild LOCAL Verified 06/24/22 10:50 SWELLING General Stated Complaint: GenMedical SHIN: 3 Review of Systems Constitutional Constitutional: Denies fever(s), Denies headache(s) and Denies weakness ENT Ears, Nose, Mouth, and Throat: Denies headache(s) and Denies neck pain Cardiovascular Cardiovascular: Denies chest pain and Denies dyspnea Respiratory Respiratory: Denies cough and Denies dyspnea Gastrointestinal Gastrointestinal: Denies abdominal pain, Denies nausea and Denies vomiting Genitourinary Genitourinary: Denies dysuria Musculoskeletal Musculoskeletal: Reports back pain, Denies neck pain, Denies numbness and Denies tingling Integumentary/Breasts Skin/Breast: Denies rash Neurologic Neurologic: Denies headache(s), Denies numbness, Denies tingling and Denies weakness Hematologic/Lymphatic Hematologic/Lymphatic: Denies easy bleeding and Denies easy bruising PFSH All Active Problems Carotid artery stenosis (Chronic) right 15-49% in 2019; known left ICA occlusion Hyperlipidemia (Chronic) Peripheral vascular disease (Chronic) s/p femoral stent [place] [facility] Tubular adenoma (Chronic 03/07/16) Colonoscopy 03/07/16 - 5 yr plan; colonoscopy 02/2022 [place] [facility]; tubular adenoma and tubulovillous adenomas Sciatica (Acute) Atherosclerotic cardiovascular disease (Acute) cardiac cath in 2020 with nonobstructive disease Left lower lobe pulmonary nodule (Acute) Generalized weakness (Acute) Dizziness (Acute) Non-small cell carcinoma of lung (Chronic ~05/2019) Biopsied at [facility]; followed by [facility] pulm and [facility] [place]ology. 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 October 05, 2018 while in-patient. Has not smoked since. 03/20/19 - Admits to 1 cigaret 1-2 per week. 12/19/19 - smoking 3-4 /day -01/2020 - QUIT again 03/16/21 - Reports NONE since 04/2020 Hx of non-ST elevation myocardial infarction (NSTEMI) (2019) in the setting of pneumothorax Pneumothorax on left Initial 01/02/20 LEFT Repeat spont. LEFT pneumothorax - 05/01/20 Repeat spont. pneumothorax (#3) LEFT 01/2021 Polyp of colon Primary malignant neoplasm of cervix s/p hyst Ruptured emphysematous bleb of lung Squamous cell carcinoma of skin UPJ obstruction, acquired chronic bilateral hydronephrosis on CT Surgical History Colonoscopy - [facility] (03/07/16) Dr Parisi excision CIS R buttock 2009 History of discectomy History of excision of mass History of lung biopsy (~2015) S/P hysterectomy fibroid uterus ovaries remain Status post breast biopsy Status post carpal tunnel release Status post cholecystectomy Family History Mother , 65 Cancer Sister , 65 Breast cancer Father , 75 Heart disease Sister Cancer Sister No problems noted. Brother Bone cancer Lung cancer Daughter No problems noted. Daughter No problems noted. Son No problems noted. Brother No problems noted. Maternal Grandfather No problems noted. Paternal Grandfather No problems noted. Maternal Grandmother No problems noted. Paternal Grandmother No problems noted. Social History Smoking/Tobacco Use Status: Former Tobacco Use tobacco type: cigarettes Quit Date: 10/05/18 Tobacco: How many years used: 55 Second Hand Exposure: Yes Counseling given: patient declined Smoking risk assessment performed?: Yes Alcohol Intake: never Substance use type: does not use Details: Quit smoking while in-patient. Caregiver/Support person: No Household members: spouse Housing: house Communication Needs: None Do you need help understanding health information?: Never Pets and animals: No Sexually active: No Do you think of yourself as: straight/heterosexual Current gender identity: female What is your relationship status?: How often do you talk on the phone with friends or family?: once per week Do you belong to any clubs or organized social groups?: no Panel score (0-1 are the most socially isolated patients): 1 What type of physical activity do you participate in: walking Duration: < 15 minutes/day Frequency: daily Special sonia needs: No Seatbelt use: always Drive intox or ride 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 pizza 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: No Do you feel safe at home: Yes Do you feel safe in your relationship?: Yes Exam Const General: cooperative, healthy appearing, comfortable and no acute distress Orientation: alert and awake HENPR Head: normal to inspection, normocephalic and atraumatic Mouth: moist mucous membranes Eyes General: appearance normal, both eyes and all related structures Conjunctivae: conjunctivae normal Neck Neck: normal visual inspection, full ROM, no meningeal signs, trachea midline and supple Resp Effort & Inspection: normal respiratory effort and able to speak in complete sentences Auscultation: diminished lung sounds bilaterally in the lower lung summers Cardio Rate: tachycardic (102) Rhythm: regular rhythm GI Palpation: soft, not firm, no guarding, no pulsatile masses and nontender Back/Spine/Pelvis Back: no CVA tenderness and back tenderness Skin General skin exam: no rashes or lesions noted Neuro General: patient alert, patient awake, moves all extremities and no focal motor deficits Cognition: normal cognition Speech: speech normal Gait: normal gait Motor: muscle tone normal throughout Sensory Exam: no sensory deficits noted Extrem General: normal to inspection, full ROM, capillary refill normal, no pedal edema and no calf tenderness Psych Appearance: grossly normal Mental Status: mental status grossly normal Course Vital Signs Vital signs: Vital Signs Temperature 36.6 C 07/14/22 13:15 Pulse 117 H 07/14/22 13:15 Respiratory Rate 18 07/14/22 13:15 Blood Pressure 128/65 07/14/22 13:15 Pulse Oximetry 97 07/14/22 13:15 Temperature 36.6 C 07/14/22 13:15 Temperature Source Oral 07/14/22 13:15 Pulse 117 H 07/14/22 13:15 Respiratory Rate 18 07/14/22 13:15 Respiratory Effort 07/14/22 13:27 Respiratory Depth Normal 07/14/22 13:27 Respiratory Pattern Normal 07/14/22 13:27 Blood Pressure 128/65 07/14/22 13:15 Blood Pressure Position Supine 07/14/22 13:15 Pulse Oximetry 97 07/14/22 13:15 Oxygen Delivery Method Nasal Cannula 07/14/22 13:15 Oxygen Flow Rate 1.5 07/14/22 13:15 Pain Level 5 07/14/22 13:15 Lab/Test Results Lab/Test Results: Laboratory Tests Range/Units 07/14/22 07/14/22 14:19 14:19 WBC (4.4-10.8) 10^3/uL 15.77 H RBC (3.93-5.22) 10^6/uL 4.74 Hgb (11.2-15.7) g/dL 12.3 Hct (36.0-46.0) % 40.4 MCV (80-95) fL 85 MCH (27.0-33.0) pg 25.9 L MCHC (32.0-36.0) % 30.4 L RDW (11.7-14.6) % 16.2 H Plt Count (130-400) 10^3/uL 109 L MPV (8.0-11.0) fL 12.2 H Immature Gran % 5.8 Neutrophils % 67.6 Lymphocytes % 10.8 Monocytes % 12.6 Eosinophils % 2.1 Basophils % 1.1 Nucleated RBC % (0.0-0.3) % 0.2 Absolute Neutrophils (1.2-6.7) 10^3/uL 10.66 H Absolute Lymphocytes (1.2-3.4) 10^3/uL 1.70 Absolute Monocytes (0.1-0.8) 10^3/uL 1.99 H Absolute Eosinophils (0.0-0.7) 10^3/uL 0.33 Absolute Basophils (0.0-0.2) 10^3/uL 0.17 RBC Morphology Normal PT (9.3-11.0) sec 10.0 INR (0.9-1.1) 1.0 APTT (21.0-27.5) sec 24.9
[2022-07-14 14:47] LABS: ALT 9 U/L (14-59); AST 26 U/L (15-37); Alkaline Phosphatase 353 U/L (46-116); Anion Gap 8.8 mmol/L (3-11); BUN 20 mg/dL (7-18); Bilirubin, Total 0.8 mg/dL (0.2-1.0); CO2 29.2 mmol/L (21.0-32.0); CREATININE 1.1 mg/dL (0.55-1.02); Calcium 10.1 mg/dL (8.5-10.1); Chloride 100 mmol/L (98-107); Glucose 124 mg/dL (74-106); Magnesium 2.1 mg/dL (1.8-2.4); Potassium 3.7 mmol/L (3.5-5.1); Sodium 138 mmol/L (136-145); Total Protein 7.4 g/dL (6.4-8.2); Troponin I < 50 ng/L (<or=60)
[2022-07-14 15:01] LABS: COVID-19 PCR Negative (Negative); Influenza A PCR Negative (Negative); Influenza B PCR Negative (Negative); RSV PCR Negative (Negative)
[2022-07-14 15:25] LABS: D-Dimer 4002 ng/mlFEU (<500)
--- NOTE | 2022-07-14 15:28 | DI.CT_ITS ---
Exam(s) CT CHEST PE CTA EXAM: CT CHEST PE CTA CLINICAL HISTORY: dimer 4000, back pain, tachy. TECHNIQUE: Imaging Protocol: Axial CT angiography was performed with multi-slice acquisition and mu lti-planar reconstructions as well as axial, coronal and sagittal MIP reconstructions. CONTRAST MATERIAL: Intravenous: Omnipaque 350 Contrast volume:50 ml COMPARISON: CT CT CHEST PE CTA from 06/24/2022 CR XR CHEST 2V PA LATERAL from 07/14/2022 FINDINGS: Pulmonary Arteries: No evidence of filling defect to suggest pulmonary emboli. Tracheobronchial tree: Patent where visualized. Mediastinum and Iris: No dominant adenopathy or fluid collection. Pulmonary parenchyma: Moderate emphysematous changes. Stable scarring seen posteriorly in the right upper lobe. Stable 9 millimeter mass left lower lobe. Pleura: No effusion or pneumothorax. Heart: The heart is not dilated. coronary artery calcifications are seen. Aorta: Thoracic aorta non-dilated. No aneurysm. No dissection. Atherosclerotic changes. Upper abdomen: Unremarkable. Bones: Unremarkable for age. IMPRESSION: No evidence of pulmonary embolism. No acute abnormality. RADIATION DOSE DELIVERED: 177.38mGy.cm Total DLP DATA REPOSITORY: All CT scans at this facility are submitted to the National Radiology Data Registry (NRDR) Dose Index Registry (DIR) with the [employer] (ACR). RADIATION OPTIMIZATION: All CT scans at this facility use at least one of these dose optimization te chniques: automated exposure control; mA and/or kV adjustment per patient size (includes targeted exa ms where dose is matched to clinical indication); or iterative reconstruction.
--- NOTE | 2022-07-14 15:45 | DI.CT_ITS ---
Exam(s) CT ABDOMEN PELVIS CTA EXAM: CT ABDOMEN PELVIS CTA CLINICAL HISTORY: back pain, tachy, dimer 4000. TECHNIQUE: Imaging Protocol: Axial CT angiography was performed with multi-slice acquisition and m ulti-planar and/or 3D reconstructions. CONTRAST MATERIAL: Intravenous: Omnipaque 350 Contrast volume:structured data in ml Oral: / no COMPARISON: CT CHEST WITHOUT CONTRAST from 02/02/2015 CT - from 10/05/[address] CHEST PE CTA from 05/01/[address] CHEST PE CTA from 06/24/[address] CHEST PE CTA from 07/14/2022 FINDINGS: Vascular Structures: Celiac [place]/SMA: No evidence of stenosis. Renal Arteries: No evidence of stenosis. There is a single renal artery perfusing the left kidney. T wo arteries perfuse the right kidney. Aorta: No aneurysm. No dissection. Heavy calcification along the hurt Pelvis: Iliac Arteries: Heavily calcified. Severe stenosis proximal right common iliac artery. The left il iac artery stents extending down to femoral junction. Occlusion of right external iliac artery just below the bifurcation. Some flow is reconstituted at the common femoral artery Common Femoral Arteries: No evidence of stenosis. Soft Tissues: Lung bases:Stable appearance of 9 millimeter spiculated mass left lung base. Additional tiny nodule seen more anteriorly at the left lung base. Liver: Normal density. Multiple abnormal low-density foci with enhancement throughout the liver suspi cious for mid metastatic disease. Gallbladder and biliary tract: Status post cholecystectomy. No radiodense calculus or dilation. Pancreas: Normal density, no abnormal calcifications or inflammatory process. Spleen: Normal. Kidneys: Normal size, contour and axis. No radiodense stones or obstructive uropathy. No masses seen. Marked dilatation of the left renal pelvis. There is contrast in the collecting systems from previo us chest CT. The nephrograms and pyelograms are symmetric. There are bilateral renal cysts. Adrenal glands: Thickening of both adrenal limbs without focal mass. Bladder: 10 x 7 millimeter focal nodule in the bladder wall antro inferiorly. Symmetric distention, no gross wall thickening. Bowel: Mild sigmoid diverticulosis. No obstruction or bowel wall thickening. Appendix not identified . Peritoneal cavity: No ascites, collection or mesenteric inflammatory response. Reproductive: Status post hysterectomy. Ovaries atrophic. Bones: Degenerative changes. No compression fracture or gross lytic or blastic lesion. Lymph nodes: Within normal limits. IMPRESSION: 1. Occlusion of the right external iliac artery just below the bifurcation some post reconstituted a t the level of the common femoral artery. Patent left iliac artery stents. 2. Liver with multiple small low-density lesions, suspicious for metastases. 3. Markedly dilated right renal pelvis without evidence of obstruction. 4. 1 centimeter nodule in the bladder wall inferiorly. The findings were discussed with Adolfo Stanley, emergency department provider. RADIATION DOSE DELIVERED: 467.2mGy.cm Total DLP DATA REPOSITORY: All CT scans at this facility are submitted to the National Radiology Data Registry (NRDR) Dose Index Registry (DIR) with the [employer] (ACR). RADIATION OPTIMIZATION: All CT scans at this facility use at least one of these dose optimization te chniques: automated exposure control; mA and/or kV adjustment per patient size (includes targeted exa ms where dose is matched to clinical indication); or iterative reconstruction.
[2022-07-14] MEDS: Normal Saline - Diluent 50 ML VIAL IJ (16:26)
[2022-07-14] MEDS: Omnipaque 350 MG/ML 100 ML BTL 50 ML IJ ×2 (16:26→16:27)
[2022-07-14] MEDS: Normal Saline Flush 10 ML SYR IVP (16:28)
[2022-07-14 17:25] LABS: Troponin I < 50 ng/L (<or=60)
[2022-07-14 17:36] LABS: Bilirubin Negative (Negative); Blood Negative (Negative); Clarity Clear (Clear); Glucose Negative (Negative); Ketones Negative (Negative); Leukocyte Esterase Negative (Negative); Nitrite Negative (Negative); Specific Gravity 1.015 (1.005-1.025); Urobilinogen 0.2 EU/dL (Up TO 0.2); pH 5.5 (5-8)
--- NOTE | 2022-07-14 18:34 | ED.PROG_ITS ---
Date of service: 07/14/22 Time of Service: 16:00 Medical Decision Making Patient signed out to me by BALBIR Jacinto. Patient pending CTA imaging and second troponin. Patient continues to deny any symptoms at time of signout. Received CT reports that shows no PE or obvious trauma findings. Patient does have lung mass, noted nodules on her liver and bladder nodule. We do not have recent CT imaging to compare this to but these do seem to be new findings. Patient also has right iliac arterial occlusion. Reassessed patient and patient does have peripheral pulses intact and no ischemic findings to the extremity. Radiologist also noted increased size of right renal pelvis but no obstruction or calculi was noted. Patient continues to deny any further pain or discomfort. It was noted that patient was off oxygen for a while and heart rate began to be in the 140s. Patient was placed back on oxygen and heart rate decreased back to 99-104 after about 10 minutes of oxygen. Delta troponin is negative. Given that patient is improving and no longer has discomfort and is requesting go back to health and rehab I do feel that patient is able to be safely discharged. Patient was encouraged to return for any new or significant worsening of symptoms. Will refer patient to primary care provider for further investigation of new CT findings of liver and bladder nodules along with arterial occlusion with consideration of referral to vascular surgery but I do not think this is an emergent finding noted that patient has history of peripheral arterial disease. Patient is also comfortable with this plan of care. After discussion of diagnosis and plan of care patient has no further needs, questions, or concerns and states clear understanding to return to the emergency department for any worsening symptoms. This documentation was generated using [employer] dictation system, please disregard any oddities of phrase or misspellings. Imaging Data Radiologic Study: Imaging: CT Scan Radiologist's impression: EXAM: CT CHEST PE CTA CLINICAL HISTORY: dimer 4000, back pain, tachy. TECHNIQUE: Imaging Protocol: Axial CT angiography was performed with multi-sl ice acquisition and multi-planar reconstructions as well as axial, coronal and sagittal MIP reconstructions. CONTRAST MATERIAL: Intravenous: Omnipaque 350 Contrast volume:50 ml COMPARISON: CT CT CHEST PE CTA from 06/24/2022 CR XR CHEST 2V PA LATERAL from 07/14/2022 FINDINGS: Pulmonary Arteries: No evidence of filling defect to suggest pulmonary emboli. Tracheobronchial tree: Patent where visualized. Mediastinum and Iris: No dominant adenopathy or fluid collection. Pulmonary parenchyma: Moderate emphysematous changes. Stable scarring seen posteriorly in the right upper lobe. Stable 9 millimeter mass left lower lobe. Pleura: No effusion or pneumothorax. Heart: The heart is not dilated. coronary artery calcifications are seen. Aorta: Thoracic aorta non-dilated. No aneurysm. No dissection. Atherosclerotic changes. Upper abdomen: Unremarkable. Bones: Unremarkable for age. IMPRESSION: No evidence of pulmonary embolism. No acute abnormality. Radiologic Study #2: Imaging: CT Scan Radiologist's impression: EXAM: CT ABDOMEN PELVIS CTA CLINICAL HISTORY: back pain, tachy, dimer 4000. TECHNIQUE: Imaging Protocol: Axial CT angiography was performed with multi- slice acquisition and multi-planar and/or 3D reconstructions. CONTRAST MATERIAL: Intravenous: Omnipaque 350 Contrast volume:structured data in ml Oral: / no COMPARISON: CT CHEST WITHOUT CONTRAST from 02/02/2015 CT - from 10/05/[address] CHEST PE CTA from 05/01/[address] CHEST PE CTA from 06/24/[address] CHEST PE CTA from 07/14/2022 FINDINGS: Vascular Structures: Celiac [place]/SMA: No evidence of stenosis. Renal Arteries: No evidence of stenosis. There is a single renal artery pe rfusing the left kidney. Two arteries perfuse the right kidney. Aorta: No aneurysm. No dissection. Heavy calcification along the hurt Pelvis: Iliac Arteries: Heavily calcified. Severe stenosis proximal right common iliac artery. The left iliac artery stents extending down to femoral junction. Occlusion of right external iliac artery just below the bifurcation. Some flow is reconstituted at the common femoral artery Common Femoral Arteries: No evidence of stenosis. Soft Tissues: Lung bases:Stable appearance of 9 millimeter spiculated mass left lung base. Additional tiny nodule seen more anteriorly at the left lung base. Liver: Normal density. Multiple abnormal low-density foci with enhancement throughout the liver suspicious for mid metastatic disease. Gallbladder and biliary tract: Status post cholecystectomy. No radiodense calculus or dilation. Pancreas: Normal density, no abnormal calcifications or inflammatory process. Spleen: Normal. Kidneys: Normal size, contour and axis. No radiodense stones or obstructive uropathy. No masses seen. Marked dilatation of the left renal pelvis. There is contrast in the collecting systems from previous chest CT. The nephrograms and pyelograms are symmetric. There are bilateral renal cysts. Adrenal glands: Thickening of both adrenal limbs without focal mass. Bladder: 10 x 7 millimeter focal nodule in the bladder wall antro inferiorly. Symmetric distention, no gross wall thickening. Bowel: Mild sigmoid diverticulosis. No obstruction or bowel wall thickening. Appendix not identified. Peritoneal cavity: No ascites, collection or mesenteric inflammatory response. Reproductive: Status post hysterectomy. Ovaries atrophic. Bones: Degenerative changes. No compression fracture or gross lytic or blastic lesion. Lymph nodes: Within normal limits. IMPRESSION: 1. Occlusion of the right external iliac artery just below the bifurcation some post reconstituted at the level of the common femoral artery. Patent left iliac artery stents. 2. Liver with multiple small low-density lesions, suspicious for metastases. 3. Markedly dilated right renal pelvis without evidence of obstruction. 4. 1 centimeter nodule in the bladder wall inferiorly. The findings were discussed with Adolfo Stanley, emergency department provider. Exam Const General: cooperative, no acute distress and not ill appearing Orientation: alert, awake and oriented x3 Resp Effort & Inspection: normal respiratory effort, able to speak in complete sentences and no respiratory distress Cardio Rate: regular rate Rhythm: regular rhythm Pulses: posterior tibial pulses present and dorsalis pedis present Skin General skin exam: no rashes or lesions noted Neuro General: patient alert, patient awake, patient oriented x3, moves all extremities and no focal motor deficits Sensory Exam: no sensory deficits noted Sign Out Sign Out Data: Sign Out Comment: Extensive past medical history, presenting today for back pain. No back pain now after her oxycodone. Work-up reveals D-dimer greater than 4000. Obtaining CT imaging of chest, abdomen, pelvis for evaluation of potential PE, trauma, dissection, metastatic disease, etc. Also awaiting a delta troponin. Last updated by John Dunne PA at 07/14/22 15:47 Discharge Plan Disposition Patient Disposition: Home Condition: Stable Discharge Details Clinical Impression: Back pain, Peripheral vascular disease, Left lower lobe pulmonary nodule, Nodule on liver, Bladder mass Primary Care Provider: Candelaria Pereira ED Provider: Jb Stanley Home Meds and New Rx's Prescriptions: Continued ipratropium-albuterol 0.5 mg-3 mg(2.5 mg base)/3 mL solution for nebulization 3 ml inhalation QID PRN (Reason: wheezing/COPD J43.2) Qty: 90 3RF (DME) Space Chamber Plus 1 EACH spacer 1 ea Miscellaneous PRN Qty: 1 albuterol sulfate [ProAir HFA] 90 mcg/actuation HFA aerosol inhaler 2 puff Inhalation Q4H PRN Qty: 2 4RF Breztri Aerosphere 160-9-4.8 mcg/actuation HFA aerosol inhaler See Rx Instructions .ROUTE .COMPLEX Qty: 10.7 8RF Dose Instruction: INHALE TWO PUFFS BY MOUTH TWICE A DAY FOR COPD Rx Instructions: INHALE TWO PUFFS BY MOUTH TWICE A DAY FOR COPD acetaminophen [Tylenol] 325 mg tablet 325 mg PO DAILY PRN prednisone 20 mg Tablet 40 mg PO DAILY Qty: 0 0RF (DME) Oxygen Tank See Rx Instructions .ROUTE Qty: 1 0RF Rx Instructions: As directed lidocaine 5 % Adhesive Patch,Medicated 2 patch topical HS Qty: 0 0RF No Action magnesium hydroxide [Milk of Magnesia] 400 mg/5 mL Suspension 30 ml PO HS bisacodyl 10 mg Suppository 10 mg VT DAILY PRN polyethylene glycol 3350 [Miralax] 17 gram/dose Powder 17 g PO PRN PRN Discharge Instructions Instructions: Back Pain (ED) Additional Instructions: Continue to take your medications as prescribed and monitor your symptoms. If you have any new or significant worsening of symptoms feel free to return to the emergency department for reassessment. Otherwise follow-up with your primary care provider for reassessment of the new findings secondary to liver and bladder nodules and your peripheral vascular disease. Referrals: Candelaria Pereira MD [Primary Care Provider] - 1 week Discharge Data Discharge Date/Time-TO BE ENTERED AT DEPARTURE: 07/14/22 19:19
--- NOTE | 2022-07-14 19:37 | NUR.NOTE ---
Referral faxed to [facility], Dr Pereira to f/u week of 06/2622 for new abd nodules, arterial occlusion finding on ct.Nursing Note:
== END 2022-07-14 19:19 | disposition home or self-care (01) ==
PROVIDERS: Physician Assistant; Emergency Provider Nurse Practitioner Family; PCP Family Medicine
DX: R00.0 Tachycardia, unspecified (principal); D72.829 Elevated white blood cell count, unspecified; R74.8 Abnormal levels of other serum enzymes; J44.9 Chronic obstructive pulmonary disease, unspecified; I10 Essential (primary) hypertension; I49.3 Ventricular premature depolarization; R91.1 Solitary pulmonary nodule; K76.89 Other specified diseases of liver; N32.89 Other specified disorders of bladder; Z20.822 Contact with and (suspected) exposure to COVID-19
CPT/HCPCS: 71275; 80053; 87637; 93005; 99284; 99285; 71046; 74174; 81003; 83735; 84484; 85025; 85379; 85610; 85730; 93010; J3490

== ENCOUNTER 2022-07-17 18:56 | Inpatient (IN) | payer MEDICARE, SELFPAY ==
[2022-07-17] VITALS (42 sets, daily range): BP systolic 76–148; BP diastolic 45–81; PULSE 86–130; RESP 17–22; TEMP 36.2–37.5; O2SAT 88–100
--- NOTE | 2022-07-17 18:45 | RT.EKG_ITS ---
APPROVED REPORT Exam: Resting ECG Reason for Exam: sob Patient Location: E HR:128 bpm ECG Measurements Heart Rate 128 AXIS VT 125 P 88 QRSd 65 QRS 88 QT 278 T -69 QTc 406 Conclusion Sinus tachycardia...rate> 99 Physician: no stemi
--- NOTE | 2022-07-17 19:15 | DI.RAD_ITS ---
Exam(s) XR PORTABLE CHEST AP EXAM: XR PORTABLE CHEST AP CLINICAL HISTORY: sob. TECHNIQUE: 2D digital imaging was performed. COMPARISON: CR XR CHEST 2V PA LATERAL from 07/14/2022 FINDINGS: Single AP portable view. Heart size is upper normal. The mediastinum is not widened. Bilateral hyperinflation emphysematous changes again noted. No new obvious infiltrates nor pleural e ffusions. No pneumothorax. No pulmonary edema. IMPRESSION: No acute pulmonary findings on this single AP portable view of the chest. COPD again noted. DATA REPOSITORY: RADIATION DOSE DELIVERED:
[2022-07-17] MEDS: Normal Saline 1,000 ML 1000 ML IV (19:40)
[2022-07-17] MEDS: Ondansetron 4 MG/2 ML VIAL IVP (19:41)
[2022-07-17 19:42] LABS: HCT 45.4 % (36.0-46.0); HGB 13.5 g/dL (11.2-15.7); MCH 25.5 pg (27.0-33.0); MCHC 29.7 % (32.0-36.0); MCV 86 fL (80-95); MPV 12.5 fL (8.0-11.0); Platelet Count 107 10^3/uL (130-400); RDW 16.1 % (11.7-14.6); RDW-SD 49.3 fL
[2022-07-17] MEDS: Normal Saline Flush 10 ML SYR IVP (19:42)
--- NOTE | 2022-07-17 19:52 | W.ED.GENAD ---
Discharge Plan Disposition Patient Disposition: Admit to [facility] Condition: Serious Discharge Details Chief Complaint: Nausea/Vomit/Diar Clinical Impression: Elevated troponin, Nausea vomiting and diarrhea Primary Care Provider: Candelaria Pereira ED Provider: John Dunne Home Meds and New Rx's Prescriptions: No Action ipratropium-albuterol 0.5 mg-3 mg(2.5 mg base)/3 mL solution for nebulization 3 ml inhalation QID PRN (Reason: wheezing/COPD J43.2) Qty: 90 3RF (DME) Space Chamber Plus 1 EACH spacer 1 ea Miscellaneous PRN Qty: 1 albuterol sulfate [ProAir HFA] 90 mcg/actuation HFA aerosol inhaler 2 puff Inhalation Q4H PRN Qty: 2 4RF Breztri Aerosphere 160-9-4.8 mcg/actuation HFA aerosol inhaler See Rx Instructions .ROUTE .COMPLEX Qty: 10.7 8RF Dose Instruction: INHALE TWO PUFFS BY MOUTH TWICE A DAY FOR COPD Rx Instructions: INHALE TWO PUFFS BY MOUTH TWICE A DAY FOR COPD acetaminophen [Tylenol] 325 mg tablet 325 mg PO DAILY PRN prednisone 20 mg Tablet 40 mg PO DAILY Qty: 0 0RF (DME) Oxygen Tank See Rx Instructions .ROUTE Qty: 1 0RF Rx Instructions: As directed magnesium hydroxide [Milk of Magnesia] 400 mg/5 mL Suspension 30 ml PO HS bisacodyl 10 mg Suppository 10 mg MT DAILY PRN polyethylene glycol 3350 [Miralax] 17 gram/dose Powder 17 g PO PRN PRN lidocaine 5 % Adhesive Patch,Medicated 2 patch topical HS Qty: 0 0RF Medical Decision Making This is a 77-year-old female with a past medical history of COPD, O2 dependent at 1.5 L at baseline, hypertension, nonsmall cell carcinoma of the lung, NSTEMI in 2020, presenting to the ER this evening reporting epigastric discomfort, nausea, vomiting, diarrhea that began over the past couple of days, also reports that she feels as though her breathing is worse than her typical baseline. Denies fever, worsening cough, black tarry stools or bright red blood in her stools. No known obvious sick contacts. Upon presentation pulse is in the 130 range, she appears anxious. Initial O2 sat on her finger was in the 80s, her O2 was increased to 6 L without any significant improvement. The O2 monitor was then moved from her finger to her ear, a much better reading, able to titrate her O2 back down to her baseline 1.5 L on nasal cannula and her O2 sat was 97%. Plan to initiate a cardiac work-up, give 2 L IV fluid, give IV Zofran, test for C. difficile. Of note patient did have a CTA of her chest on 07-14-2022 as well as a CTA of her abdomen and pelvis for evaluation which was unremarkable. Laboratory values are markedly abnormal, white blood cell count of 24.40. Patient has had chronic leukocytosis over the past month. No evidence of anemia. Mild thrombocytopenia which also does not appear new. Her electrolytes reveal a sodium of 134 potassium 4.7 carbon dioxide 16.5 with an anion gap of 22.5. BUN of 23, creatinine 1.3 with a GFR of 42.88. Glucose 84 calcium 11.4 magnesium 2.0. Total bilirubin 1.1 AST 40 ALT 7 alk phosphatase 370. BNP 3419. Albumin 2.9. COVID, flu, RSV negative. C. difficile negative. Stool pathogen test pending Troponin 1588. Patient endorses no chest pain. Reports that her nausea and vomiting has resolved completely. Given full dose aspirin. EKG repeat obtained at 2036. Reviewed with Dr. Garrison. Appears sinus tachycardia. Continues to have artifact. No obvious STEMI. Both EKGs pushed to [facility] and requested a cardiology consultation. At 2105 I was able to discuss the case with cardiology at [facility], Dr. Avalos. He reviewed the EKGs, questioned multiple focal atrial tachycardia, recommended 5 IV metoprolol. He also feels as though this is likely demand in nature and given our high sensitivity troponins, would likely see an increase with a delta troponin. He was able to review the record from 2019 when the patient was seen at his facility, had a clean cardiac catheterization and stress test at that time. He does not recommend initiating heparin now. Would control rate, continue IV hydration, trend troponin, and reassess. 5 IV metoprolol was given. Repeat EKG at 2157 reveals sinus rhythm, ventricular rate of 86, no ischemic changes. Case discussed with our hospitalist team, Dr. Guzman, for admission. He will come evaluate the patient personally. After evaluation he is agreeable to admission. This documentation was generated using myDocketation system, please disregard any oddities of phrase or misspellings. Medical Records Medical records reviewed: Yes I reviewed the patient's medical records. Imaging Data Radiologic Study: Attestation: I personally reviewed and interpreted this imaging study as follows: Imaging: X-Ray Radiologist's impression: PROCEDURE INFORMATION: Exam: XR Chest Exam date and time: 07/17/2022 7:30 PM Age: 77 years old Clinical indication: Shortness of breath; Patient HX: SOB TECHNIQUE: Imaging protocol: Radiologic exam of the chest. Views: 1 view. COMPARISON: 1. CR XR CHEST 2V PA LATERAL 07/14/2022 2:[address] CHEST PE CTA 06/24/2022 8:29 PM FINDINGS: Tubes, catheters and devices: Monitoring wires noted. Lungs: Lungs are hyperaerated. No consolidation. No vascular congestion. Pleural spaces: Unremarkable. No pleural effusion. No pneumothorax. Heart/Mediastinum: Unremarkable. No cardiomegaly. Bones/joints: Moderate degenerative changes are noted in the cervical spine. Soft tissues: Metallic foreign body projecting at the lower neck corresponds to fusion hardware in the cervical spine as shown on the earlier CT. IMPRESSION: Chronic lung disease. No acute cardiopulmonary abnormality. Lab Data Lab results reviewed: Yes I reviewed the patient's lab results. Labs: Laboratory Tests Range/Units 07/17/22 07/17/22 07/17/22 19:27 19:40 19:42 WBC (4.4-10.8) 10^3/uL RBC (3.93-5.22) 10^6/uL Hgb (11.2-15.7) g/dL Hct (36.0-46.0) % MCV (80-95) fL MCH (27.0-33.0) pg MCHC (32.0-36.0) % RDW (11.7-14.6) % Plt Count (130-400) 10^3/uL MPV (8.0-11.0) fL Immature Gran % Neutrophils % Band Neutrophils % Lymphocytes % Monocytes % Eosinophils % Basophils % Metamyelocytes % Nucleated RBC % (0.0-0.3) % Absolute Neutrophils (1.2-6.7) 10^3/uL Absolute Lymphocytes (1.2-3.4) 10^3/uL Absolute Monocytes (0.1-0.8) 10^3/uL Absolute Eosinophils (0.0-0.7) 10^3/uL Absolute Basophils (0.0-0.2) 10^3/uL RBC Morphology Polychromasia Sodium (136-145) mmol/L Potassium (3.5-5.1) mmol/L Chloride (98-107) mmol/L Carbon Dioxide (21.0-32.0) mmol/L Anion Gap (3-11) mmol/L BUN (7-18) mg/dL Creatinine (0.55-1.02) mg/dL Est GFR (CKD-EPI 2020) (mL/min/1.73m2) Glucose (74-106) mg/dL Calcium (8.5-10.1) mg/dL Magnesium (1.8-2.4) mg/dL 2.0 Total Bilirubin (0.2-1.0) mg/dL AST (15-37) U/L ALT (14-59) U/L Alkaline Phosphatase (46-116) U/L Troponin I (<or=60) ng/L 1588 H* NT-Pro-B Natriuret Pep (<300) pg/mL 3419 H Total Protein (6.4-8.2) g/dL Albumin (3.4-5.0) g/dL Stl C.difficile Tox PCR (Negative) Negative COVID-19 Source Nasopharynx SARS-CoV-2 (PCR) (Negative) Negative Influenza Type A (PCR) (Negative) Negative Influenza Type B (PCR) (Negative) Negative RSV (PCR) (Negative) Negative Range/Units 07/17/22 07/17/22 19:50 19:50 WBC (4.4-10.8) 10^3/uL 24.40 H RBC (3.93-5.22) 10^6/uL 5.30 H Hgb (11.2-15.7) g/dL 13.5 Hct (36.0-46.0) % 45.4 MCV (80-95) fL 86 MCH (27.0-33.0) pg 25.5 L MCHC (32.0-36.0) % 29.7 L RDW (11.7-14.6) % 16.1 H Plt Count (130-400) 10^3/uL 107 L MPV (8.0-11.0) fL 12.5 H Immature Gran % 0.0 Neutrophils % 72.0 Band Neutrophils % 7 Lymphocytes % 8.0 Monocytes % 5.0 Eosinophils % 7.0 Basophils % 0.0 Metamyelocytes % 1 Nucleated RBC % (0.0-0.3) % 1.0 H Absolute Neutrophils (1.2-6.7) 10^3/uL 19.28 H Absolute Lymphocytes (1.2-3.4) 10^3/uL 1.95 Absolute Monocytes (0.1-0.8) 10^3/uL 1.22 H Absolute Eosinophils (0.0-0.7) 10^3/uL 1.71 H Absolute Basophils (0.0-0.2) 10^3/uL 0.00 RBC Morphology See Below Polychromasia Present Sodium (136-145) mmol/L 134 L Potassium (3.5-5.1) mmol/L 4.7 Chloride (98-107) mmol/L 95 L Carbon Dioxide (21.0-32.0) mmol/L 16.5 L Anion Gap (3-11) mmol/L 22.5 H BUN (7-18) mg/dL 23 H Creatinine (0.55-1.02) mg/dL 1.3 H Est GFR (CKD-EPI 2020) (mL/min/1.73m2) 42.88 Glucose (74-106) mg/dL 84 Calcium (8.5-10.1) mg/dL 11.4 H Magnesium (1.8-2.4) mg/dL Total Bilirubin (0.2-1.0) mg/dL 1.1 H AST (15-37) U/L 40 H ALT (14-59) U/L 7 L Alkaline Phosphatase (46-116) U/L 370 H Troponin I (<or=60) ng/L NT-Pro-B Natriuret Pep (<300) pg/mL Total Protein (6.4-8.2) g/dL 7.5 Albumin (3.4-5.0) g/dL 2.9 L Stl C.difficile Tox PCR (Negative) COVID-19 Source SARS-CoV-2 (PCR) (Negative) Influenza Type A (PCR) (Negative) Influenza Type B (PCR) (Negative) RSV (PCR) (Negative) ECG Data Attestation: I personally reviewed and interpreted this ECG (s) as follows: Interpretation: Significant artifact. Sinus tachycardia, ventricular rate of 128. No STEMI HPI General Mode of arrival: EMS. Date/Time Provider Initiated Documentation: 07/17/22 19:17. Limitations to Documentation: no limitations. Information obtained by: patient and EMS. HPI Narrative: This is a 77-year-old female with a past medical history of COPD, hypertension, former smoker, presenting to the ER for epigastric discomfort, nausea, vomiting, diarrhea over the past 24 hours. She also reports worsening shortness of breath when compared to her baseline, she is on 1.5 L O2 nasal cannula at baseline. Patient states that she feels warm but no known documented fever, headache, neck pain, chest pain, black tarry stools or bright red blood in her stools. Patient states that she was of recently at the hospital for generalized weakness and dehydration and overall had felt well up into the past 24 hours or so. Related Data Home Medications Medication Instructions Recorded Confirmed inhalational spacing device (Space ##1 06/09/16 06/24/22 Chamber Plus) acetaminophen 325 mg tablet 325 mg PO DAILY PRN 04/08/21 07/17/22 (Tylenol) ipratropium 0.5 mg-albuterol 3 mg 3 ml inhalation QID PRN 05/07/21 07/17/22 (2.5 mg base)/3 mL nebulization wheezing/COPD J43.2 #90 mL soln albuterol sulfate 90 mcg/actuation 2 puff inhalation Q4H PRN ##2 11/18/21 07/17/22 aerosol inhaler (ProAir HFA) budesonide 160 mcg-glycopyr 9 See Rx Instructions .Route 03/15/22 07/17/22 mcg-formot 4.8 mcg/actuation HFA .COMPLEX #10.7 grams inhaler (Breztri Aerosphere) lidocaine 5 % topical patch 2 patch topical HS #0 ea 05/31/22 07/17/22 Oxygen #1 ea 06/30/22 prednisone 20 mg tablet 40 mg PO DAILY #0 tabs 06/30/22 07/17/22 bisacodyl 10 mg rectal suppository 10 mg MT DAILY PRN 07/17/22 07/17/22 magnesium hydroxide 400 mg/5 mL 30 ml PO HS 07/17/22 07/17/22 oral suspension (Milk of Magnesia) polyethylene glycol 3350 17 17 g PO PRN PRN 07/17/22 07/17/22 gram/dose oral powder (Miralax) Previous Rx's Medication Instructions Recorded ipratropium 0.5 mg-albuterol 3 mg 3 ml inhalation QID PRN 05/07/21 (2.5 mg base)/3 mL nebulization wheezing/COPD J43.2 #90 mL soln albuterol sulfate 90 mcg/actuation 2 puff inhalation Q4H PRN ##2 11/18/21 aerosol inhaler (ProAir HFA) budesonide 160 mcg-glycopyr 9 See Rx Instructions .Route 03/15/22 mcg-formot 4.8 mcg/actuation HFA .COMPLEX #10.7 grams inhaler (Breztri Aerosphere) lidocaine 5 % topical patch 2 patch topical HS #0 ea 05/31/22 Oxygen #1 ea 06/30/22 prednisone 20 mg tablet 40 mg PO DAILY #0 tabs 06/30/22 Allergies Allergy/AdvReac Type Severity Reaction Status Date / Time Tetanus Vaccines and Toxoid Allergy Mild LOCAL Verified 07/17/22 19:49 SWELLING General Stated Complaint: Nausea/Vomit/Diar SHIN: 3 Review of Systems Constitutional Constitutional: Denies fever(s), Denies headache(s) and Denies weakness ENT Ears, Nose, Mouth, and Throat: Denies headache(s) and Denies neck pain Cardiovascular Cardiovascular: Denies chest pain and Reports dyspnea Respiratory Respiratory: Reports cough (Chronic) and Reports dyspnea Gastrointestinal Gastrointestinal: Denies abdominal pain, Reports diarrhea, Reports nausea and Reports vomiting Genitourinary Genitourinary: Denies dysuria Musculoskeletal Musculoskeletal: Reports back pain (Chronic) and Denies neck pain Integumentary/Breasts Skin/Breast: Denies rash Neurologic Neurologic: Denies headache(s) and Denies weakness Hematologic/Lymphatic Hematologic/Lymphatic: Denies easy bleeding and Denies easy bruising PFSH All Active Problems (Updated 07/17/22 @ 22:20 by BALBIR Yee) Back pain (Acute) Nodule on liver (Acute) Bladder mass (Acute) Elevated troponin (Acute) Nausea vomiting and diarrhea (Acute) Carotid artery stenosis (Chronic) right 15-49% in 2020; known left ICA occlusion Hyperlipidemia (Chronic) Peripheral vascular disease (Chronic) s/p femoral stent at [facility] Tubular adenoma (Chronic 03/07/16) Colonoscopy 03/07/16 - 5 yr plan; colonoscopy 02/2022 at [facility]; tubular adenoma and tubulovillous adenomas Sciatica (Acute) Atherosclerotic cardiovascular disease (Acute) cardiac cath in 2020 with nonobstructive disease Left lower lobe pulmonary nodule (Acute) Generalized weakness (Acute) Dizziness (Acute) Non-small cell carcinoma of lung (Chronic ~05/2019) Biopsied at [facility]; followed by [facility] pulm and [facility] oncology. 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 October 05, 2018 while in-patient. Has not smoked since. 03/20/19 - Admits to 1 cigaret 1-2 per week. 12/19/19 - smoking 3-4 /day -01/2020 - QUIT again 03/16/21 - Reports NONE since 04/2020 Hx of non-ST elevation myocardial infarction (NSTEMI) (2019) in the setting of pneumothorax Pneumothorax on left Initial 01/02/20 LEFT Repeat spont. LEFT pneumothorax - 05/01/20 Repeat spont. pneumothorax (#3) LEFT 01/2021 Polyp of colon Primary malignant neoplasm of cervix s/p hyst Ruptured emphysematous bleb of lung Squamous cell carcinoma of skin UPJ obstruction, acquired chronic bilateral hydronephrosis on CT Surgical History Colonoscopy - [facility] (03/07/16) Dr Parisi excision CIS R buttock 2008 History of discectomy History of excision of mass History of lung biopsy (~2015) S/P hysterectomy fibroid uterus ovaries remain Status post breast biopsy Status post carpal tunnel release Status post cholecystectomy Family History Mother , 65 Cancer Sister , 65 Breast cancer Father , 75 Heart disease Sister Cancer Sister No problems noted. Brother Bone cancer Lung cancer Daughter No problems noted. Daughter No problems noted. Son No problems noted. Brother No problems noted. Maternal Grandfather No problems noted. Paternal Grandfather No problems noted. Maternal Grandmother No problems noted. Paternal Grandmother No problems noted. Social History Smoking/Tobacco Use Status: Former Tobacco Use tobacco type: cigarettes Quit Date: 10/05/18 Tobacco: How many years used: 55 Second Hand Exposure: Yes Counseling given: patient declined Smoking risk assessment performed?: Yes Alcohol Intake: never Substance use type: does not use Details: Quit smoking while in-patient. Caregiver/Support person: No Household members: spouse Housing: house Communication Needs: None Do you need help understanding health information?: Never Pets and animals: No Sexually active: No Do you think of yourself as: straight/heterosexual Current gender identity: female What is your relationship status?: How often do you talk on the phone with friends or family?: once per week Do you belong to any clubs or organized social groups?: no Panel score (0-1 are the most socially isolated patients): 1 What type of physical activity do you participate in: walking Duration: < 15 minutes/day Frequency: daily Special sonia needs: No Seatbelt use: always Drive intox or ride w/intox van driver: No Do you feel safe at home: Yes Do you feel safe in your relationship?: Yes Exam Const General: cooperative, healthy appearing, no acute distress and anxious Orientation: alert, awake and oriented x3 HENMT Head: normal to inspection, normocephalic and atraumatic Face and sinus: normal facial exam Mouth: moist mucous membranes abnormal (Dry) Throat: posterior oropharynx normal Eyes General: appearance normal, both eyes and all related structures Conjunctivae: conjunctivae normal Neck Neck: normal visual inspection, full ROM, no meningeal signs, trachea midline and supple Resp Effort & Inspection: normal respiratory effort and able to speak in complete sentences Auscultation: diminished lung sounds bilaterally in the lower lung summers Cardio Rate: tachycardic (130) Rhythm: regular rhythm GI Inspection: normal to inspection Palpation: soft, not firm, no guarding, no pulsatile masses and nontender Auscultation: normal bowel sounds Back/Spine/Pelvis Back: no CVA tenderness and No back tenderness Skin General skin exam: no rashes or lesions noted Neuro General: patient alert, patient awake, moves all extremities and no focal motor deficits Cognition: normal cognition Speech: speech normal Motor: muscle tone normal throughout Sensory Exam: no sensory deficits noted Extrem General: normal to inspection, full ROM, capillary refill normal, no pedal edema and no calf tenderness Psych Appearance: grossly normal Mental Status: mental status grossly normal Course Vital Signs Vital signs: Vital Signs Temperature 36.2 C L 07/17/22 18:59 Pulse 130 H 07/17/22 18:59 Respiratory Rate 18 07/17/22 18:59 Blood Pressure 112/69 07/17/22 18:59 Pulse Oximetry 91 L 07/17/22 18:59 Temperature 36.2 C L 07/17/22 18:59 Pulse 112 H 07/17/22 19:45 Pulse 128 H 07/17/22 19:50 Respiratory Rate 18 07/17/22 18:59 Respiratory Effort 07/17/22 19:50 Blood Pressure 138/58 L 07/17/22 19:45 Blood Pressure Mean 75 07/17/22 19:45 Pulse Oximetry 96 07/17/22 19:30 Oxygen Delivery Method Nasal Cannula 07/17/22 18:59 Oxygen Flow Rate 6 07/17/22 18:59 Pain Level 5 07/17/22 18:59 Critical Care Time Critical Care Time Critical Care Time: Yes Total Critical Care Time: 35 Attestation: Upon my evaluation, this patient had a high probability of clinically significant, life-threatening deterioration due to their current medical conditions, which required my direct attention, intervention, and personal management. I have personally provided greater than 30 minutes of critical care time exclusive of the time spend on separately billable procedures. Time includes obtaining a history, examining the patient, pulse oximetry, review of laboratory data, radiology results, discussion with consultants, arranging urgent treatment with development of a management plan, evaluation of patient's response to treatment, and monitoring for potential decompensation. Interventions were performed as documented above.
[2022-07-17 20:00] LABS: ALT 7 U/L (14-59); AST 40 U/L (15-37); Albumin 2.9 g/dL (3.4-5.0); Alkaline Phosphatase 370 U/L (46-116); Anion Gap 22.5 mmol/L (3-11); BUN 23 mg/dL (7-18); Bilirubin, Total 1.1 mg/dL (0.2-1.0); CO2 16.5 mmol/L (21.0-32.0); CREATININE 1.3 mg/dL (0.55-1.02); Calcium 11.4 mg/dL (8.5-10.1); Chloride 95 mmol/L (98-107); Estimated GFR 42.88 (mL/min/1.73m2); Glucose 84 mg/dL (74-106); Potassium 4.7 mmol/L (3.5-5.1); Sodium 134 mmol/L (136-145); Total Protein 7.5 g/dL (6.4-8.2)
[2022-07-17 20:11] LABS: Absolute Eosinophil Count 1.71 10^3/uL (0.0-0.7); Absolute Lymphocyte Count 1.95 10^3/uL (1.2-3.4); Absolute Monocyte Count 1.22 10^3/uL (0.1-0.8); Absolute Neutrophil Count 19.28 10^3/uL (1.2-6.7); Bands % 7; Diff Comment Manual Differential; Metamyelocytes % 1; Polychromasia Present
--- NOTE | 2022-07-17 20:15 | DI.VRAD_ITS ---
PROCEDURE INFORMATION: Exam: XR Chest Exam date and time: 07/17/2022 7:30 PM Age: 77 years old Clinical indication: Shortness of breath; Patient HX: SOB TECHNIQUE: Imaging protocol: Radiologic exam of the chest. Views: 1 view. COMPARISON: 1. CR XR CHEST 2V PA LATERAL 07/14/2022 2:[address] CHEST PE CTA 06/24/2022 8:29 PM FINDINGS: Tubes, catheters and devices: Monitoring wires noted. Lungs: Lungs are hyperaerated. No consolidation. No vascular congestion. Pleural spaces: Unremarkable. No pleural effusion. No pneumothorax. Heart/Mediastinum: Unremarkable. No cardiomegaly. Bones/joints: Moderate degenerative changes are noted in the cervical spine. Soft tissues: Metallic foreign body projecting at the lower neck corresponds to fusion hardware in the cervical spine as shown on the earlier CT. IMPRESSION: Chronic lung disease. No acute cardiopulmonary abnormality. Dictated and Authenticated by: Dave Aleman MD. Ordering:TIMMY Lopez MD
--- NOTE | 2022-07-17 20:15 | RT.EKG_ITS ---
APPROVED REPORT Exam: Resting ECG Reason for Exam: sob,elevated trop Patient Location: E HR:121 bpm ECG Measurements Heart Rate 121 AXIS MI [id number] P [id number] QRSd 71 QRS 104 QT 354 T 227 QTc 502 Conclusion Atrial flutter with predominant 2:1 AV block...A-rate 242, multiple Ps Probable lateral infarct, age indeterminate...Q >35mS, T neg, V5-V6 I aVL Abnormal T, consider ischemia, diffuse leads...T <-0.20mV, ant/lat/inf Prolonged QT interval...QTc >500mS Physician: notable artifact, no stemi
[2022-07-17 20:24] LABS: NT-proBNP 3419 pg/mL (<300)
[2022-07-17 20:26] LABS: Troponin I 1588 ng/L (<or=60)
[2022-07-17 20:28] LABS: COVID-19 PCR Negative (Negative); Influenza A PCR Negative (Negative); Influenza B PCR Negative (Negative); RSV PCR Negative (Negative)
[2022-07-17 20:32] LABS: C Diff PCR Negative (Negative)
[2022-07-17] MEDS: Aspirin 81 MG CHEW 324 MG CH (20:34)
[2022-07-17 20:38] LABS: Source Nasopharynx
[2022-07-17] MEDS: Metoprolol 5 MG/5 ML VIAL IVP (21:45)
--- NOTE | 2022-07-17 21:45 | RT.EKG_ITS ---
APPROVED REPORT Exam: Resting ECG Reason for Exam: post metoprolol injection per BALBIR Jacinto Patient Location: E HR:86 bpm ECG Measurements Heart Rate 86 AXIS OR 113 P 84 QRSd 74 QRS 86 QT 349 T 73 QTc 417 Conclusion Sinus rhythm...normal P axis, V-rate 60- 99 Physician: no stemi
--- NOTE | 2022-07-17 22:18 | HPE_ITS ---
Date of service: 07/17/22 Time of Service: 22:19 Assessment and Plan Assessment and plan (1) Diarrhea: Status: Acute Assessment and plan: Acute diarrheal illness, likely gastroenteritis. The troponin is noted. While the nausea alone might represent anginal equivalent, the simultaneous presence of diarrhea would not be consistent with ACS so by exclusion I would agree this is likely demand ischemia. Furthermore there are no ischemic changes on EKG. I would continue supportive measures with hydration and prn antiemetics, and will trend troponins. I cannot entirely explain the elevated anion gap and (presumed) acidosis entirely. While diarrhea may produce an acidosis, this is generally without an elevation in the AG, though perhaps there is a superimposed element of starvation ketosis. For completeness sake I would like to add on a lactate, but the patient is certainly not septic appearing, and in any case for now would simply trend the chemistries with hydration. Reviewed ADs, requests DNR. History of Present Illness History of Present Illness Chief Complaint: nausea, diarrhea Narrative: 77 female with COPD, CAD, currently at [facility] following admission for COPD exacerbation and UTI. Here with 1-2 days of nausea and diarrhea. No abdominal pain, fever, or known similar illness at facility. In ER initial finings of note for absence of fever, pulse approx 130 (sinus tach), white count 24 (on Prednisone 40), troponin 1500. EKG 1 and 2 showed no obvious ischemic changes but were poor quality; EKG 3 is WNL. Case reviewed with [facility] Cardiology, felt this was demand ischemia (presumably from the tachycardia?). Patient given ASA, Zofran, 5 mg Lopressor I and NS bolus. I was asked to evaluate for admission. Patient states she feels much improved. Denies chest pain. Cdiff is negative. Other labs of note for BNP 3419, BUN 23, Creat 1.3, HCO3 16.5 with AG 22 Review of Systems Narrative: per HPI PFSH All Active Problems (Updated 07/17/22 @ 22:31 by Kurt Guzman MD) Diarrhea (Acute) Back pain (Acute) Nodule on liver (Acute) Bladder mass (Acute) Elevated troponin (Acute) Nausea vomiting and diarrhea (Acute) Carotid artery stenosis (Chronic) right 15-49% in 2020; known left ICA occlusion Hyperlipidemia (Chronic) Peripheral vascular disease (Chronic) s/p femoral stent at [facility] Tubular adenoma (Chronic 03/07/16) Colonoscopy 8/15/16 - 5 yr plan; colonoscopy 02/[address] [facility]; tubular adenoma and tubulovillous adenomas Sciatica (Acute) Atherosclerotic cardiovascular disease (Acute) cardiac cath in 2020 with nonobstructive disease Left lower lobe pulmonary nodule (Acute) Generalized weakness (Acute) Dizziness (Acute) Non-small cell carcinoma of lung (Chronic ~05/2019) Biopsied at [facility]; followed by [facility] pulm and [facility] oncology. 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 October 05, 2018 while in-patient. Has not smoked since. 03/20/19 - Admits to 1 cigaret 1-2 per week. 12/19/19 - smoking 3-4 /day -01/2020 - QUIT again 03/16/21 - Reports NONE since 04/2020 Hx of non-ST elevation myocardial infarction (NSTEMI) (2019) in the setting of pneumothorax Pneumothorax on left Initial 01/02/20 LEFT Repeat spont. LEFT pneumothorax - 05/01/20 Repeat spont. pneumothorax (#3) LEFT 01/2021 Polyp of colon Primary malignant neoplasm of cervix s/p hyst Ruptured emphysematous bleb of lung Squamous cell carcinoma of skin UPJ obstruction, acquired chronic bilateral hydronephrosis on CT Surgical History Colonoscopy - [facility] (03/07/16) Dr Parisi excision CIS R buttock 2009 History of discectomy History of excision of mass History of lung biopsy (~2015) S/P hysterectomy fibroid uterus ovaries remain Status post breast biopsy Status post carpal tunnel release Status post cholecystectomy Family History Mother , 65 Cancer Sister , 65 Breast cancer Father , 75 Heart disease Sister Cancer Sister No problems noted. Brother Bone cancer Lung cancer Daughter No problems noted. Daughter No problems noted. Son No problems noted. Brother No problems noted. Maternal Grandfather No problems noted. Paternal Grandfather No problems noted. Maternal Grandmother No problems noted. Paternal Grandmother No problems noted. Social History Smoking/Tobacco Use Status: Former Tobacco Use tobacco type: cigarettes Quit Date: 10/05/18 Tobacco: How many years used: 57 Second Hand Exposure: Yes Counseling given: patient declined Smoking risk assessment performed?: Yes Alcohol Intake: never Substance use type: does not use Details: Quit smoking while in-patient. Caregiver/Support person: No Household members: spouse Housing: house Communication Needs: None Do you need help understanding health information?: Never Pets and animals: No Sexually active: No Do you think of yourself as: straight/heterosexual Current gender identity: female What is your relationship status?: How often do you talk on the phone with friends or family?: once per week Do you belong to any clubs or organized social groups?: no Panel score (0-1 are the most socially isolated patients): 1 What type of physical activity do you participate in: walking Duration: < 15 minutes/day Frequency: daily Special sonia needs: No Seatbelt use: always Drive intox or ride w/intox xm1 tank driver: No Do you feel safe at home: Yes Do you feel safe in your relationship?: Yes Meds Allergies and Home Medications Allergies Allergy/AdvReac Type Severity Reaction Status Date / Time Tetanus Vaccines and Toxoid Allergy Mild LOCAL Verified 07/17/22 19:49 SWELLING Home Medications Medication Instructions Recorded Confirmed Type inhalational spacing device (Space ##1 06/09/16 06/24/22 History Chamber Plus) acetaminophen 325 mg tablet 325 mg PO DAILY PRN 04/08/21 07/17/22 History (Tylenol) ipratropium 0.5 mg-albuterol 3 mg 3 ml inhalation QID PRN 05/07/21 07/17/22 Rx (2.5 mg base)/3 mL nebulization wheezing/COPD J43.2 #90 mL soln albuterol sulfate 90 mcg/actuation 2 puff inhalation Q4H PRN ##2 11/18/21 07/17/22 Rx aerosol inhaler (ProAir HFA) budesonide 160 mcg-glycopyr 9 See Rx Instructions .Route 03/15/22 07/17/22 Rx mcg-formot 4.8 mcg/actuation HFA .COMPLEX #10.7 grams inhaler (Breztri Aerosphere) lidocaine 5 % topical patch 2 patch topical HS #0 ea 05/31/22 07/17/22 Rx Oxygen #1 ea 06/30/22 Rx prednisone 20 mg tablet 40 mg PO DAILY #0 tabs 06/30/22 07/17/22 Rx bisacodyl 10 mg rectal suppository 10 mg IN DAILY PRN 07/17/22 07/17/22 History magnesium hydroxide 400 mg/5 mL 30 ml PO HS 07/17/22 07/17/22 History oral suspension (Milk of Magnesia) polyethylene glycol 3350 17 17 g PO PRN PRN 07/17/22 07/17/22 History gram/dose oral powder (Miralax) Exam Narrative Exam Narrative: 133/85, 123 (last recorded, on visit 95), 36.2, 18, 97% RA. HEENT atraumatic; neck supple; lungs clear; heart RRR; abdomen soft and NT; extremities w/o edema; neuro Ox3, lucid, moves all 4s Results Labs Result diagrams: 07/17/22 19:50 07/17/22 19:50 Labs: Laboratory Results - last 24 hr 07/17/22 07/17/22 07/17/22 19:27 19:40 19:42 WBC RBC Hgb Hct MCV MCH MCHC RDW Plt Count MPV Immature Gran % Neutrophils % Band Neutrophils % Lymphocytes % Monocytes % Eosinophils % Basophils % Metamyelocytes % Nucleated RBC % Absolute Neutrophils Absolute Lymphocytes Absolute Monocytes Absolute Eosinophils Absolute Basophils RBC Morphology Polychromasia Sodium Potassium Chloride Carbon Dioxide Anion Gap BUN Creatinine Est GFR (CKD-EPI 2020) Glucose Calcium Magnesium 2.0 Total Bilirubin AST ALT Alkaline Phosphatase Troponin I 1588 H* NT-Pro-B Natriuret Pep 3419 H Total Protein Albumin Stl C.difficile Tox PCR Negative COVID-19 Source Nasopharynx SARS-CoV-2 (PCR) Negative Influenza Type A (PCR) Negative Influenza Type B (PCR) Negative RSV (PCR) Negative 07/17/22 07/17/22 19:50 19:50 WBC 24.40 H RBC 5.30 H Hgb 13.5 Hct 45.4 MCV 86 MCH 25.5 L MCHC 29.7 L RDW 16.1 H Plt Count 107 L MPV 12.5 H Immature Gran % 0.0 Neutrophils % 72.0 Band Neutrophils % 7 Lymphocytes % 8.0 Monocytes % 5.0 Eosinophils % 7.0 Basophils % 0.0 Metamyelocytes % 1 Nucleated RBC % 1.0 H Absolute Neutrophils 19.28 H Absolute Lymphocytes 1.95 Absolute Monocytes 1.22 H Absolute Eosinophils 1.71 H Absolute Basophils 0.00 RBC Morphology See Below Polychromasia Present Sodium 134 L Potassium 4.7 Chloride 95 L Carbon Dioxide 16.5 L Anion Gap 22.5 H BUN 23 H Creatinine 1.3 H Est GFR (CKD-EPI 2020) 42.88 Glucose 84 Calcium 11.4 H Magnesium Total Bilirubin 1.1 H AST 40 H ALT 7 L Alkaline Phosphatase 370 H Troponin I NT-Pro-B Natriuret Pep Total Protein 7.5 Albumin 2.9 L Stl C.difficile Tox PCR COVID-19 Source SARS-CoV-2 (PCR) Influenza Type A (PCR) Influenza Type B (PCR) RSV (PCR) Last Vital Signs Temp 36.2 C L 07/17/22 18:59 Pulse 123 H 07/17/22 21:45 Resp 18 07/17/22 20:16 BP 133/55 L 07/17/22 21:45 Pulse Ox 97 07/17/22 21:31
[2022-07-18] VITALS (12 sets, daily range): BP systolic 99–125; BP diastolic 51–79; PULSE 90–133; RESP 16–22; TEMP 36.5–37.2; O2SAT 95–99
--- NOTE | 2022-07-18 | DI.CT_ITS ---
Exam(s) CT HEAD WO EXAM: CT HEAD WO CLINICAL HISTORY: AMS (new). TECHNIQUE: Imaging Protocol: Axial computed tomography images with coronal and sagittal reformatted images were created and reviewed COMPARISON: No exams were available for comparison FINDINGS: There are no skull fractures. There is a fluid level in the left sphenoid sinus consistent with sinus itis. The partially visualized maxillary sinuses are clear as are the frontal sinuses and ethmoidal air cells. Mastoid air cells are also clear. There is no evidence of intracranial hemorrhage, mass effect, or shift of midline structures. There are no extra-axial fluid collections. The ventricles are not enlarged or shifted and there is no blo od within the ventricular system nor within the basal cisterns. There is a significant area of abnormal hypodensity in the left occipital parietal region, consistent with prior infarct at this level. There is calcification noted within the vertebral arteries at the skull base. IMPRESSION: Area of abnormal hypodensity in the left occipital parietal region consistent with prior infarct. No other focal findings. If clinically indicated follow-up MRI with diffusion imaging can be performed for added sensitivity and specificity. RADIATION DOSE DELIVERED: 729.71mGy.cm Total DLP DATA REPOSITORY: All CT scans at this facility are submitted to the National Radiology Data Registry (NRDR) Dose Index Registry (DIR) with the [employer] (ACR). RADIATION OPTIMIZATION: All CT scans at this facility use at least one of these dose optimization te chniques: automated exposure control; mA and/or kV adjustment per patient size (includes targeted exa ms where dose is matched to clinical indication); or iterative reconstruction.
--- NOTE | 2022-07-18 | DI.CT_ITS ---
Exam(s) CT CHEST PE ABD PELVIS W EXAM: CT CHEST PE ABD PELVIS W CLINICAL HISTORY: elevated troponin, h/o malignancy, ?PE. TECHNIQUE: Imaging Protocol: Axial CT angiography was performed with multi-slice acquisition and m ulti-planar and/or 3D reconstructions. CONTRAST MATERIAL: Intravenous: Omnipaque 350 Contrast volume:100 ml Oral: None COMPARISON: CT CT CHEST PE CTA from 05/19/[address] CHEST PE CTA from 05/28/[address] CHEST PE CTA from 06/24/2022 CR XR CHEST 2V PA LATERAL from 07/12/[address] ABDOMEN PELVIS CTA from 07/14/2022 FINDINGS: CHEST: PULMONARY ARTERIES: There are no intra-arterial filling defects to suggest the presence of acute pulm onary emboli. LUNGS: No evidence of pulmonary infarction.Again noted is a spiculated nodule in the left lower lobe measuring 7 millimeters. No other significant focal left lung nodules noted.. On the right side the re is pleural based infiltrate now evident posteriorly over the right upper lobe posterior segment, u nchanged from CT scan of 06/24/2022 and not associated with overlying rib destruction. No new additi onal right lung findings. No pleural effusions. No findings in the trachea and mainstem bronchi. MEDIASTINUM: There is no hilar nor mediastinal adenopathy. Visualized thyroid unremarkable. CARDIAC: Heart size is normal. There is no pericardial effusion. There is no significant shift of t he interventricular septum.Caliber of the thoracic aorta is within normal limits. No dissection. No vishal is independent origin of the non dominant left vertebral artery off of the aortic arch. OSSEOUS: There are multiple healing right-sided rib fractures evident. Also subtle left-sided rib fr actures also noted. No compression fracture seen.. ABDOMEN: There is no ascites. LIVER: There are few subtle hypodensities in the liver, involving both lobes, and ranging up to 0.8 c m size. Cannot exclude metastatic. GALLBLADDER/BILIARY: Gallbladder is again noted be surgically absent. CBD is not dilated. PANCREAS: No evidence of pancreatic mass nor dilatation of the pancreatic duct. SPLEEN: Spleen is not enlarged. There are no intrasplenic lesions. Splenic and portal veins are ashley nt. ADRENALS: There are no significant adrenal masses. KIDNEYS:There are multiple cysts in the right kidney measuring up to 4.3 by 4.5 cm. There is dilatat ion of the right renal pelvis down to the ureteropelvic junction with no obvious radiopaque calculus at this level nor dilatation of the ureter below this level. Probably indicating element of chronic UPJ obstruction. In the opposite-left kidney there are multiple smaller cysts ranging up to 2 cm siz e. No obvious calculi. No solid renal masses evident.. ABDOMINAL AORTA: The abdominal aorta is heavily calcified but not enlarged. Common iliac arteries ar e also calcified but not enlarged. There is a long stent in the left external iliac artery. Patency is difficult to determine. LYMPH NODES: There is no retroperitoneal or para-aortic adenopathy. ABDOMINAL WALL/GI: No evidence of significant anterior abdominal wall hernia. No bowel obstruction. PELVIS: LYMPH NODES: There is no intrapelvic nor inguinal adenopathy. GI: No evidence of appendicitis.Sigmoid diverticuli. No evidence of acute diverticulitis. URINARY BLADDER: There is a subtle 11 millimeter mass lung for the bladder and right of midline. REPRODUCTIVE: Uterus is surgically absent. No ovarian masses evident. Small amount of free fluid po steriorly in the dependent presacral space. OSSEOUS: No significant osseous lesions. IMPRESSION: 1. No evidence of acute pulmonary emboli nor pulmonary infarction. 2. Stable appearance of the spiculated 7 millimeter left lower lobe nodule 3. And there is again noted pleural based infiltrate in the posterior segment of the right upper lo be, not associated with overlying rib destruction and there are no pleural effusions. 4. There are multiple rib fractures bilaterally, more so on the right side which appear to be healing . 5. Multiple cysts in both kidneys, the largest being in the right kidney and measuring 4.5 cm. There is also again noted dilatation of the right renal pelvis which has the appearance of a probable mold capper lamin UPJ obstruction. There is no significant thinning of the ipsilateral kidney cortical mantle. Sm aller cyst in the left kidney. No solid renal masses evident. 6. Small bladder lesion again noted. This can be studied with cystoscopy. 7. Previous cholecystectomy and hysterectomy. No bowel obstruction. 8. Multiple small sub cm hypodensities in the liver. Possibly metastatic. 9. Multiple healing rib fractures evident bilaterally. First read by [facility]. RADIATION DOSE DELIVERED: 1,363.95mGy.cm Total DLP DATA REPOSITORY: All CT scans at this facility are submitted to the National Radiology Data Registry (NRDR) Dose Index Registry (DIR) with the [employer] (ACR). RADIATION OPTIMIZATION: All CT scans at this facility use at least one of these dose optimization te chniques: automated exposure control; mA and/or kV adjustment per patient size (includes targeted exa ms where dose is matched to clinical indication); or iterative reconstruction.
[2022-07-18 00:07] LABS: Troponin I 1345 ng/L (<or=60)
[2022-07-18] MEDS: Normal Saline 1,000 ML 100 ML IV (02:15)
[2022-07-18] MEDS: Normal Saline Flush 10 ML SYR IVP (02:15)
--- NOTE | 2022-07-18 07:45 | RT.EKG_ITS ---
APPROVED REPORT Exam: Resting ECG Reason for Exam: NSTEMI Patient Location: I HR:119 bpm ECG Measurements Heart Rate 119 AXIS CA 115 P 85 QRSd 62 QRS 87 QT 367 T 44 QTc 517 Conclusion Sinus tachycardia...rate> 99 Borderline right axis deviation...QRS axis ( 81, 90) Borderline T wave abnormalities...T/QRS ratio < 1/20 or flat T Prolonged QT interval...QTc >500mS
[2022-07-18 07:50] LABS: Lactate 2.4 mmol/L (0.6-1.4)
[2022-07-18 08:07] LABS: HCT 41.8 % (36.0-46.0); HGB 12.4 g/dL (11.2-15.7); MCH 25.7 pg (27.0-33.0); MCHC 29.7 % (32.0-36.0); MCV 87 fL (80-95); RBC 4.82 10^6/uL (3.93-5.22); RDW 16.4 % (11.7-14.6); RDW-SD 51.9 fL
[2022-07-18 08:10] LABS: Anion Gap 18.7 mmol/L (3-11); BUN 25 mg/dL (7-18); CO2 17.3 mmol/L (21.0-32.0); CREATININE 1.2 mg/dL (0.55-1.02); Calcium 10.5 mg/dL (8.5-10.1); Chloride 104 mmol/L (98-107); Estimated GFR 47.21 (mL/min/1.73m2); Glucose 86 mg/dL (74-106); Potassium 5.1 mmol/L (3.5-5.1); Sodium 140 mmol/L (136-145)
[2022-07-18] MEDS: Lactated Ringers 500 ML IV ×2 (08:14→14:04)
[2022-07-18 08:27] LABS: Troponin I 1164 ng/L (<or=60)
[2022-07-18] MEDS: Budesonide/Formoterol 160/4.5 6 GM 60 PUFF INH IH ×2 (08:35→19:25)
[2022-07-18] MEDS: Tiotropium Bromide-Respimat 10 PUFF INH 2 PUFF IH (08:35)
[2022-07-18 08:57] LABS: Absolute Eosinophil Count 0.29 10^3/uL (0.0-0.7); Absolute Lymphocyte Count 1.17 10^3/uL (1.2-3.4); Absolute Monocyte Count 3.21 10^3/uL (0.1-0.8); Absolute Neutrophil Count 24.24 10^3/uL (1.2-6.7); Bands % 16; Metamyelocytes % 1; Platelet Count 94 10^3/uL (130-400)
[2022-07-18 08:58] LABS: Anisocytosis 1+; Diff Comment Manual Differential; Hypochromasia 1+; Polychromasia Present
[2022-07-18] MEDS: predniSONE 20 MG TAB 40 MG PO (09:30)
[2022-07-18] MEDS: Pantoprazole 40 MG TABCR PO (09:31)
[2022-07-18] MEDS: Aspirin E.C. 81 MG TABEC PO (09:31)
--- NOTE | 2022-07-18 13:32 | NUR.NOTE ---
Nursing Note: Pt up to the bathroom. Walked well to the bathroom. On the way back pt stated she was feeling weak and not well. Pt able to walk to bed with stand by assist. Pt laying down in bed. VS taken. HR increased to 140's while standing. BP noted to be 94/59. Spo2 94% on 3 liters. Pt stated that she is feeling better back in bed but slightly dizzy. VS retaken. BP 101 systolic 97% on 3 L and HR 119. RR-22. Pt oriented but tired. Charge nurse made aware. Physician notified. 500 LR bolus ordered. Pt transported down to CT scan for Stat CT in stable condition and on 3 L. Pt transported via stretcher. Pt is in compliance with plan. Plan to infuse Bolus on the arrival back from CT scan.
[2022-07-18] MEDS: Normal Saline - Diluent 50 ML VIAL IJ (13:58)
[2022-07-18] MEDS: Omnipaque 350 MG/ML 100 ML BTL 53 ML IJ (14:00)
--- NOTE | 2022-07-18 15:30 | DI.VRAD_ITS ---
PROCEDURE INFORMATION: Exam: CTA Chest With Contrast CTA Abdomen With Contrast Exam date and time: 07/18/2022 1:45 PM Age: 77 years old Clinical indication: Abnormal findings; Abnormal diagnostic tests; Other: Abnormal troponin; Abnormal lab test TECHNIQUE: Imaging protocol: Computed tomographic angiography of the chest with contrast. Computed tomographic angiography of the abdomen with contrast. 3D rendering (Not supervised by radiologist): MIP and/or 3D reconstructed images were created by the technologist. COMPARISON: CT CHEST PE CTA 07/14/2022 4:03 PM FINDINGS: VASCULATURE: Pulmonary arteries: Normal. No pulmonary emboli. Aorta: Heavy aortic calcification. A right external iliac stent appears patent. Celiac trunk and mesenteric arteries: No occlusion or significant stenosis. Renal arteries: No occlusion or significant stenosis. CHEST: Lungs: Moderate bilateral centrilobular emphysematous changes are present. 13 mm spiculated lesion in the left lower lobe, stable from prior exams. See below Pleural spaces: Localized pleural thickening/fluid and adjacent consolidation in the posterior right upper lobe, stable dating back to 2019. Small layering left pleural effusion. Heart: Unremarkable. No cardiomegaly. No pericardial effusion. Coronary arteries: There is coronary artery calcification. ABDOMEN AND PELVIS: Liver: Scattered small liver lesions suspicious for hepatic metastases, similar to prior exam. Gallbladder and bile ducts: There has been a cholecystectomy. No biliary dilation. Pancreas: Unremarkable. No mass. No ductal dilation. Spleen: Unremarkable. No splenomegaly. Adrenal glands: Small bilateral adrenal lesions likely adenomas, stable from prior exam. Kidneys and ureters: Multiple bilateral renal simple. No solid mass. There is severe right hydronephrosis with a transition point at the ureteropelvic junction consistent with a chronic UPJ obstruction. No perinephric edema. No obstructing stones are seen. Stomach and bowel: Diverticulosis of the sigmoid colon. No obstruction. No mucosal thickening. Intraperitoneal space: Unremarkable. No free air. No significant fluid collection. Urinary bladder: 11 mm mass along the floor of the bladder to the right of midline, stable from prior exam. Reproductive: The patient is status post hysterectomy. No adenexal masses are seen. Lymph nodes: Unremarkable. No enlarged lymph nodes. Bones/joints: There are numerous lytic and sclerotic rib lesions consistent with metastatic disease or multiple myeloma and multiple old fractures. There is no evidence of acute fracture. Soft tissues: Unremarkable. IMPRESSION: 1. 13 mm spiculated lesion in the left lower lobe. PET-CT may be helpful for further evaluation as clinically indicated . Posterior right upper lobe findings are stable dating back to 2019 consistent with history of lung cancer. 2. Numerous liver lesions and lytic and sclerotic rib lesions consistent with metastatic disease or multiple myeloma. 3. Small bladder lesion, stable from prior exam. Cystoscopy recommended for further evaluation as clinically indicated. Additional findings as described. Dictated and Authenticated by: Yareli Rojas MD. Ordering:NICHOLAS Finley MD
[2022-07-18 19:28] LABS: Lactate 1.8 mmol/L (0.6-1.4)
--- NOTE | 2022-07-18 20:13 | W.PM.PROGNOT ---
Date of Service Date of service: 07/18/22 Time of Service: 20:13 Assessment and Plan Assessment and plan (1) Leucocytosis: Status: Acute Assessment and plan: Suspected sepsis. Will culture blood, urine, and start empiric abx. Check lactate. Check VBG. (2) Encephalopathy acute: Status: Acute Assessment and plan: As above. Additionally, check CT head. (3) Elevated troponin: Status: Acute Assessment and plan: [facility] cardiology felt this is due to demand ischemia. In setting of known CAD - however, also in setting of suspected sepsis, dehydration, gastroenteritis. Continue asa. Plts really would not permit QUENTIN or heparinization. Obtain echo. Consider a cardiology consult. Monitor on tele. (4) Liver lesion: Status: Acute Assessment and plan: lesions - pleural - suspected metastatic diseaes. H/o lung ca. C/s palliative care. (5) Lesion of urinary bladder: Status: Acute Assessment and plan: C/s urology (6) Nausea vomiting and diarrhea: Status: Resolved Assessment and plan: No evidence of acute GI process on CT. Continue IV hydration. ?Gastroenteritis. (7) Dehydration: Status: Acute Assessment and plan: IVF (8) Metabolic acidosis: Status: Acute Assessment and plan: Checking lactate, VBG. IVF. (9) Thrombocytopenia: Status: Chronic Assessment and plan: acute on chronic. Avoid anticoagulation/chemical DVT ppx. Check vitamin b12. (10) DVT prophylaxis: Status: Acute Assessment and plan: SCDs Heparin contraindicated in setting of thrombocytopenia (11) Discharge planning issues: Status: Acute Assessment and plan: DNR/DNI Palliative care consulted. Discussed with Eloy Reynolds at [phone]. Subjective Subjective Interval history since last seen: Lianna is somnolent, arousable, but confused. She denies pain, nausea, and shortness of breath, but does not answer my other questions. Case discussed with , including CT findings of possible liver metastases. He informed me that the patient came to us from [facility] and that her mental status changes started about a month ago. We also discussed Lianna's COLST form. She would want antibiotics, he thinks, and would be ok with getting more CT scans. He is aware that her care is supposed to be comfort-focused. Exam Narrative Exam Narrative: General: elderly female, somnolent, A&Ox1, NAD HEENT: EOMI, MMM Heart: RRR, tachycardic Lungs: CTAB Abdomen: soft, nontender, nondistended Extremities: no edema Objective Last Vital Signs Temp 37.2 C 07/18/22 18:29 Pulse 114 H 07/18/22 18:29 Resp 18 07/18/22 18:29 BP 120/59 L 07/18/22 18:29 Pulse Ox 97 07/18/22 18:29 Laboratory Results - last 24 hr 07/17/22 07/17/22 07/17/22 19:27 19:32 19:40 WBC RBC Hgb Hct MCV MCH MCHC RDW Plt Count MPV Immature Gran % Neutrophils % Band Neutrophils % Lymphocytes % Monocytes % Eosinophils % Basophils % Metamyelocytes % Absolute Neutrophils Absolute Lymphocytes Absolute Monocytes Absolute Eosinophils Absolute Basophils RBC Morphology Polychromasia Hypochromasia Anisocytosis VBG Lactate Sodium Potassium Chloride Carbon Dioxide Anion Gap BUN Creatinine Est GFR (CKD-EPI 2020) Glucose Calcium Magnesium Troponin I NT-Pro-B Natriuret Pep Urine Color Cancelled Urine Clarity Cancelled Urine pH Cancelled Ur Specific Solway Cancelled Urine Protein Cancelled Urine Ketones Cancelled Urine Blood Cancelled Urine Nitrite Cancelled Urine Bilirubin Cancelled Urine Urobilinogen Cancelled Ur Leukocyte Esterase Cancelled Urine Glucose Cancelled Stl C.difficile Tox PCR Negative COVID-19 Source Nasopharynx SARS-CoV-2 (PCR) Negative Influenza Type A (PCR) Negative Influenza Type B (PCR) Negative RSV (PCR) Negative Add-On Test Request 07/17/22 07/17/22 07/18/22 19:42 23:30 07:35 WBC RBC Hgb Hct MCV MCH MCHC RDW Plt Count MPV Immature Gran % Neutrophils % Band Neutrophils % Lymphocytes % Monocytes % Eosinophils % Basophils % Metamyelocytes % Absolute Neutrophils Absolute Lymphocytes Absolute Monocytes Absolute Eosinophils Absolute Basophils RBC Morphology Polychromasia Hypochromasia Anisocytosis VBG Lactate Sodium 140 Potassium 5.1 Chloride 104 Carbon Dioxide 17.3 L Anion Gap 18.7 H BUN 25 H Creatinine 1.2 H Est GFR (CKD-EPI 2020) 47.21 Glucose 86 Calcium 10.5 H Magnesium 2.0 Troponin I 1588 H* 1345 H* NT-Pro-B Natriuret Pep 3419 H Urine Color Urine Clarity Urine pH Ur Specific Solway Urine Protein Urine Ketones Urine Blood Urine Nitrite Urine Bilirubin Urine Urobilinogen Ur Leukocyte Esterase Urine Glucose Stl C.difficile Tox PCR COVID-19 Source SARS-CoV-2 (PCR) Influenza Type A (PCR) Influenza Type B (PCR) RSV (PCR) Add-On Test Request 07/18/22 07/18/22 07/18/22 07:35 07:35 07:35 WBC 29.20 H* RBC 4.82 Hgb 12.4 Hct 41.8 MCV 87 MCH 25.7 L MCHC 29.7 L RDW 16.4 H Plt Count 94 L MPV Immature Gran % See Differential Neutrophils % 67.0 Band Neutrophils % 16 Lymphocytes % 4.0 Monocytes % 11.0 Eosinophils % 1.0 Basophils % 0.0 Metamyelocytes % 1 Absolute Neutrophils 24.24 H Absolute Lymphocytes 1.17 L Absolute Monocytes 3.21 H Absolute Eosinophils 0.29 Absolute Basophils 0.00 RBC Morphology See Below Polychromasia Present Hypochromasia 1+ Anisocytosis 1+ VBG Lactate 2.4 H* Sodium Potassium Chloride Carbon Dioxide Anion Gap BUN Creatinine Est GFR (CKD-EPI 2020) Glucose Calcium Magnesium Troponin I 1164 H* NT-Pro-B Natriuret Pep Urine Color Urine Clarity Urine pH Ur Specific [place] Urine Protein Urine Ketones Urine Blood Urine Nitrite Urine Bilirubin Urine Urobilinogen Ur Leukocyte Esterase Urine Glucose Stl C.difficile Tox PCR COVID-19 Source SARS-CoV-2 (PCR) Influenza Type A (PCR) Influenza Type B (PCR) RSV (PCR) Add-On Test Request 07/18/22 07/18/22 07:52 19:18 WBC RBC Hgb Hct MCV MCH MCHC RDW Plt Count MPV Immature Gran % Neutrophils % Band Neutrophils % Lymphocytes % Monocytes % Eosinophils % Basophils % Metamyelocytes % Absolute Neutrophils Absolute Lymphocytes Absolute Monocytes Absolute Eosinophils Absolute Basophils RBC Morphology Polychromasia Hypochromasia Anisocytosis VBG Lactate 1.8 H Sodium Potassium Chloride Carbon Dioxide Anion Gap BUN Creatinine Est GFR (CKD-EPI 2020) Glucose Calcium Magnesium Troponin I NT-Pro-B Natriuret Pep Urine Color Urine Clarity Urine pH Ur Specific Sol[place] Urine Protein Urine Ketones Urine Blood Urine Nitrite Urine Bilirubin Urine Urobilinogen Ur Leukocyte Esterase Urine Glucose Stl C.difficile Tox PCR COVID-19 Source SARS-CoV-2 (PCR) Influenza Type A (PCR) Influenza Type B (PCR) RSV (PCR) Add-On Test Request COMPLETED Objective Narrative Objective Narrative: CXR: No acute pulmonary findings on this single AP portable view of the chest. COPD again noted. CT chest/abdomen/pelvis: 1. No evidence of acute pulmonary emboli nor pulmonary infarction. 2. Stable appearance of the spiculated 7 millimeter left lower lobe nodule 3. ? And there is again noted pleural based infiltrate in the posterior segment of the right upper lobe, not associated with overlying rib destruction and there are no pleural effusions. 4. There are multiple rib fractures bilaterally, more so on the right side which appear to be healing. 5. Multiple cysts in both kidneys, the largest being in the right kidney and measuring 4.5 cm.? There is also again noted dilatation of the right renal pelvis which has the appearance of a probable chronic UPJ obstruction.? There is no significant thinning of the ipsilateral kidney cortical mantle.? Smaller cyst in the left kidney.? No solid renal masses evident. 6.? Small bladder lesion again noted.? This can be studied with cystoscopy. 7.? Previous cholecystectomy and hysterectomy.? No bowel obstruction. 8.? Multiple small sub cm hypodensities in the liver.? Possibly metastatic. 9.? Multiple healing rib fractures evident bilaterally.
[2022-07-18 20:26] LABS: BE (Venous) -7 mmol/L (-2-3); HCO3 (Venous) 19 mmol/L (23-28); O2 Sat (Venous) 98 %; TCO2 (Venous) 18 mmol/L (24-29); pCO2 (Venous) 34 mmHg (41-51); pH (Venous) 7.34 (7.31-7.41); pO2 (Venous) 101 mmHg
[2022-07-18 21:03] LABS: C-Reactive Protein 23.63 mg/dL (0.0-0.3)
[2022-07-18 21:10] LABS: Bilirubin Small (Negative); Blood Negative (Negative); Clarity Sl Cloudy (Clear); Glucose Negative (Negative); Ketones 80 mg/dL (Negative); Leukocyte Esterase Negative (Negative); Nitrite Negative (Negative); Urobilinogen 0.2 EU/dL (Up TO 0.2)
[2022-07-18] MEDS: cefTRIAXone 2 GM/50 ML BAG IVPB (21:16)
--- NOTE | 2022-07-18 21:18 | DI.VRAD_ITS ---
PROCEDURE INFORMATION: Exam: CT Head Without Contrast Exam date and time: 07/18/2022 8:51 PM Age: 77 years old Clinical indication: AMS TECHNIQUE: Imaging protocol: Computed tomography of the head without contrast. Radiation optimization: All CT scans at this facility use at least one of these dose optimization techniques: automated exposure control; mA and/or kV adjustment per patient size (includes targeted exams where dose is matched to clinical indication); or iterative reconstruction. COMPARISON: CR XR CERVICAL SPINE COMP 4-5V 12/28/2021 12:41 PM FINDINGS: Brain: Age-related involutional changes and chronic microvascular ischemic disease. 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 No evidence for acute transcortical infarct. No mass effect or midline shift. No extra-axial collection. No acute intracranial hemorrhage. Basal cisterns are patent. Cerebral ventricles: No ventriculomegaly. Paranasal sinuses: Visualized sinuses are unremarkable. No fluid levels. Mastoid air cells: Visualized mastoid air cells are well aerated. Bones/joints: Unremarkable. No acute fracture. Soft tissues: Unremarkable. IMPRESSION: No evidence for acute transcortical infarct, acute intracranial hemorrhage, or mass effect. Dictated and Authenticated by: Noah Wilson MD. Ordering:NICHOLAS Finley MD
[2022-07-18 21:40] LABS: Procalcitonin 1.3 ng/mL
[2022-07-18] MEDS: VANCOMYCIN 1,000 MG in Normal Saline 250 ML 166.6666 MG IVPB (22:03)
[2022-07-18 22:53] LABS: Campylobacter PCR Negative (Negative); Salmonella PCR Negative (Negative); Shiga Toxin PCR Negative (Negative); Shigella/Enteroinvasive Ecoli Negative (Negative)
[2022-07-19] VITALS: PULSE 100
[2022-07-19 00:28] VITALS: PULSE 100
[2022-07-19 03:26] VITALS: BP 122/57; PULSE 110; RESP 18; TEMP 36.7; O2SAT 97
[2022-07-19] MEDS: Lactated Ringers 1,000 ML 75 ML IV (04:52)
[2022-07-19 06:03] LABS: Abs Immature Grans 0.92 10^3/uL (0.0-0.06); HCT 31.9 % (36.0-46.0); HGB 9.7 g/dL (11.2-15.7); MCH 25.7 pg (27.0-33.0); MCHC 30.4 % (32.0-36.0); MCV 85 fL (80-95); MPV 12.5 fL (8.0-11.0); Platelet Count 105 10^3/uL (130-400); RBC 3.77 10^6/uL (3.93-5.22); RDW 17.1 % (11.7-14.6); RDW-SD 52.6 fL; WBC 21.08 10^3/uL (4.4-10.8)
[2022-07-19 06:15] LABS: Anion Gap 13.5 mmol/L (3-11); BUN 18 mg/dL (7-18); CO2 23.5 mmol/L (21.0-32.0); Calcium 10.4 mg/dL (8.5-10.1); Chloride 104 mmol/L (98-107); Estimated GFR 58.75 (mL/min/1.73m2); Glucose 86 mg/dL (74-106); Potassium 4.4 mmol/L (3.5-5.1); Sodium 141 mmol/L (136-145)
[2022-07-19 06:35] LABS: Absolute Lymphocyte Count 0.84 10^3/uL (1.2-3.4); Absolute Neutrophil Count 16.86 10^3/uL (1.2-6.7); Bands % 4
[2022-07-19 06:36] LABS: Absolute Eosinophil Count 0.21 10^3/uL (0.0-0.7); Absolute Monocyte Count 2.95 10^3/uL (0.1-0.8); Diff Comment Manual Differential; Metamyelocytes % 1
[2022-07-19 06:38] LABS: Polychromasia Present
[2022-07-19 06:46] LABS: Calculated LDL 121 mg/dL (<100); Cholesterol 196 mg/dL (<200); HDL Cholesterol 50 mg/dL (40-60); Magnesium 1.9 mg/dL (1.8-2.4); Triglyceride 127 mg/dL (<150)
[2022-07-19 06:49] LABS: Vitamin B12 > 2000 pg/mL (193-986)
[2022-07-19 07:00] VITALS: PULSE 112
[2022-07-19 08:10] VITALS: BP 113/66; BP 115/69; BP 99/63; PULSE 109; PULSE 130; PULSE 144; RESP 19; TEMP 37; O2SAT 98
[2022-07-19] MEDS: Aspirin E.C. 81 MG TABEC PO (08:20)
[2022-07-19] MEDS: predniSONE 20 MG TAB 40 MG PO (08:20)
[2022-07-19] MEDS: Pantoprazole 40 MG TABCR PO (08:20)
[2022-07-19] MEDS: Budesonide/Formoterol 160/4.5 6 GM 60 PUFF INH IH (09:21)
[2022-07-19 09:28] VITALS: O2SAT 96
[2022-07-19 09:36] LABS: Ammonia < 10 umol/L (11-32)
[2022-07-19] MEDS: LORazepam 1 MG TAB PO (09:48)
--- NOTE | 2022-07-19 09:57 | PDOC.CMIN ---
- If Service Date Differs Date of service: 07/19/22 Time of Service: 09:57 Care Management Initial Assess REASON FOR HOSPITALIZATION:: Diarrhea,elevated troponins PAST MEDICAL HISTORY/PAST SURGICAL HISTORY:: Medical History . Abnormal PET scan of colon. colonoscopy with tubular adenoma and tubulovillous adenoma 02/2022. 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 left occipital; no residual. Carpal tunnel syndrome. right. COPD (chronic obstructive pulmonary disease). Diverticulosis of colon without diverticulitis. Essential hypertension (06/24/13). History of tobacco use. Quit approx. October 05, 2018 while in-patient. Has not smoked since. 03/20/19 - Admits to 1 cigaret 1-2 per week. 12/19/19 - smoking 3-4 /day. -01/2020 - QUIT again. 03/16/21 - Reports NONE since 04/2020. Hx of non-ST elevation myocardial infarction (NSTEMI) (2019). in the setting of pneumothorax. Pneumothorax on left. Initial 01/02/20 LEFT. Repeat spont. LEFT pneumothorax - 05/01/20. Repeat spont. pneumothorax (#3) LEFT 01/2021. Polyp of colon. Primary malignant neoplasm of cervix. s/p hyst. Ruptured emphysematous bleb of lung. Squamous cell carcinoma. of skin. UPJ obstruction, acquired. chronic bilateral hydronephrosis on CT. Surgical History . Colonoscopy - [facility] [place] (03/07/16). Dr Parisi. excision CIS R buttock 2008. History of discectomy. History of excision of mass. History of lung biopsy (~2015). S/P hysterectomy. fibroid uterus ovaries remain. Status post breast biopsy. Status post carpal tunnel release. Status post cholecystectomy PREVIOUS FUNCTIONAL STATUS/SOCIAL/FAMILY SUPPORTS:: Lianna lives in [place] with her , Eloy. They relocated to [place] from [place] in the s, after their children were grown. Eloy has 2 children and Lianna has 3 and they are all still living in [place]. They have five grandchildren. Due to the distance they do not get to see their children and grandchildren very often. 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 Lianna has become very weak over the past few weeks and is no longer able to ambulate without assistance or to independently care for herself. She was transferred to [facility] for short term rehab when discharged from [facility] earlier this month. CURRENT FUNCTIONAL STATUS:: Lianna was sleeping both times CM went to visit with her. She received a dose of Lorazepam this morning and slept for quite a while afterwards. Lianna and her met with [facility] this morning for a hospice consult. They were told that the equipment could be delivered as soon as tomorrow. Lianna's Eloy was not prepared to have her return home that soon and informed her that he thought he might be ready by Monday. One of her daughters is planning to come later this week to visit. CM called Eloy in the afternoon and explained that Lianna is not doing well. She may not have a lot of time left and encouraged him to call Lianna's children and let them know that. He expressed surprise that she was terminally ill and verbalized being unaware that she might have a bladder malignancy in addition to her other issues. He informed CM that he will call the children aries and that he will come to see Lianna tomorrow around 9:30 am. ADVANCE DIRECTIVES:: COLST on file Has patient been provided with info about the portal/API?: Yes Did the patient sign up for the portal?: No CODE STATUS:: DNR/DNI INSURANCE COVERAGE / FINANCIAL ISSUES:: Medicare. [employer] Senior supplements CURRENT HOME/COMMUNITY SERVICES/EQUIPMENT:: currently staying at [facility] PRIMARY CARE PHYSICIAN:: Candelaria Pereira POTENTIAL DISCHARGE NEEDS:: return to [facility] unless Lianna remains at [facility] for end of life care PATIENT/FAMILY EDUCATION NEEDS:: Review of discharge instructions, limitations, activity, follow up plan, discuss Ask Me Three TRANSPORTATION:: to be determined by disposition PLAN:: Lianna's discharge plan is unclear at this time. She is on comfort measures but was also being actively treated for her COPD exacerbation with inhalers, oxygen and antibiotics. Today those orders were cancelled and the focus has been to keep her comfortable. CM will continue to support Lianna and assess for ongoing discharge concerns. Readmission - Within the Past 30 Days Yes or No: Y - Date of First Admission Date of 1st Admission: 06/24/22 - Date of this Admission Date of Admission: 07/18/22 This admission was: Through ED
--- NOTE | 2022-07-19 10:08 | NUR.NOTE ---
Nursing Note: 1008: pt noted to remove NC at beginning of the shift, RN replaces NC x 4, when NC removed sats decreased to 74% on 3L pt placed on oxy mask at 4L, pt did leave mask on for short periods of time but would remove it occasionally, able to decrease 02 down to 3L humidified. at approximately 1000, pt noted to be pulling mask off and leaving it off. RN places NC back on pt to see if she would leave it in place. currently pt has kept the NC in her nose. pt has transitioned to comfort as of this morning. hospice consult to occur this afternoon. pt's left the unit at approximately 0945 to go to an appointment. continue to monitor.
--- NOTE | 2022-07-19 14:12 | PGE_ITS ---
Date of Service Date of service: 07/19/22 Time of Service: 14:12 Assessment and Plan Assessment and plan (1) Leucocytosis: Status: Acute Assessment and plan: Suspected sepsis. 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 Patient is now refusing abx and IVF. She is not interested in further workup. Will focus on comfort measures. (2) Encephalopathy acute: Status: Acute Assessment and plan: this is better today. I think the patient was very clear about her wishes during our conversation today. Comfort measures instituted. 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 (3) Elevated troponin: Status: Acute Assessment and plan: [facility] cardiology felt this is due to demand ischemia. In setting of known CAD - however, also in setting of suspected sepsis, dehydration, gastroenteritis. Focus on comfort measures. (4) Liver lesion: Status: Acute Assessment and plan: lesions - pleural - suspected metastatic diseaes. H/o lung ca. Lianna does not want these worked up. She would like to be on comfort measures. (5) Lesion of urinary bladder: Status: Acute Assessment and plan: Comfort measures (6) Nausea vomiting and diarrhea: Status: Resolved Assessment and plan: No evidence of acute GI process on CT. ?Gastroenteritis. (7) Dehydration: Status: Acute Assessment and plan: Patient would like for IVF to be stopped. (8) Metabolic acidosis: Status: Acute Assessment and plan: Will not be doing any further monitoring. (9) Thrombocytopenia: Status: Chronic Assessment and plan: As above (10) DVT prophylaxis: Status: Acute Assessment and plan: D/c SCDs. On comfort measures. (11) Discharge planning issues: Status: Acute Assessment and plan: DNR/DNI Comfort measures only. Meeting with both palliative care and hospice today to discuss options. Discussed with Eloy Reynolds at [phone]. Subjective Subjective Interval history since last seen: Was called to bedside circa 8:30 am this am to evaluate the patient and to speak with her . The patient was desaturating to the 70s on room air and was taking off her NC, so she was placed on an oxymask on 2L. I spoke with the and the patient about the findings on CT scan again, the fact that she has a ureteral obstruction and that a urology consult would be indicated. When I said this, Lianna interrupted and said repeatedly just let me go. She stated she did not want IVF or IV antibiotics. She just wanted to be made comfortable. She stated she wanted to go home. Her did not feel he would be able to take care of her at home, but was interested in meeting with hospice to see what the options would be. Comfort measures orders were placed. Exam Narrative Exam Narrative: General: elderly female, more awake today, able to participate and understands the conversation, tearful, scared, wearing an oxymask. HEENT: EOMI, MMM Heart: not auscultated Lungs: nonlabored breathing Abdomen: nondistended Extremities: covered in blankets Objective Last Vital Signs Temp 37.0 C 07/19/22 08:10 Pulse 109 H 07/19/22 08:10 Resp 19 07/19/22 08:10 BP 113/66 07/19/22 08:10 Pulse Ox 96 07/19/22 09:28 Laboratory Results - last 24 hr 07/17/22 07/17/22 07/18/22 19:32 23:30 07:52 WBC RBC Hgb Hct MCV MCH MCHC RDW Plt Count MPV Immature Gran % Neutrophils % Band Neutrophils % Lymphocytes % Atypical Lymphs % Monocytes % Eosinophils % Basophils % Metamyelocytes % Myelocytes % Promyelocytes % Other Cells % Nucleated RBC % Absolute Neutrophils Absolute Lymphocytes Absolute Monocytes Absolute Eosinophils Absolute Basophils RBC Morphology Polychromasia Hypochromasia Poikilocytosis Basophilic Stippling Anisocytosis Microcytosis Macrocytosis Spherocytes Tear Drop Cells Ovalocytes Stomatocytes [place] Bodies [place] Cells/Echinocytes Acanthocytes (Spur) Schistocytes VBG pH VBG pCO2 VBG pO2 VBG HCO3 VBG Total CO2 VBG O2 Saturation VBG Base Excess VBG Lactate Sodium Potassium Chloride Carbon Dioxide Anion Gap BUN Creatinine Est GFR (CKD-EPI 2020) Glucose Calcium Magnesium Ammonia C-Reactive Protein Triglycerides Total Cholesterol LDL Cholesterol, Calc HDL Cholesterol Vitamin B12 Procalcitonin Urine Color Cancelled Urine Clarity Cancelled Urine pH Cancelled Ur Specific [place] Cancelled Urine Protein Cancelled Urine Ketones Cancelled Urine Blood Cancelled Urine Nitrite Cancelled Urine Bilirubin Cancelled Urine Urobilinogen Cancelled Ur Leukocyte Esterase Cancelled Urine Glucose Cancelled Stool Campylobacter PCR Negative Stool Salmonella PCR Negative Stool Shigella PCR Negative Shiga Toxin (PCR) Negative Add-On Test Request Cancelled 07/18/22 07/18/22 07/18/22 07:52 19:18 19:18 WBC RBC Hgb Hct MCV MCH MCHC RDW Plt Count MPV Immature Gran % Cancelled Neutrophils % Cancelled Band Neutrophils % Cancelled Lymphocytes % Cancelled Atypical Lymphs % Cancelled Monocytes % Cancelled Eosinophils % Cancelled Basophils % Cancelled Metamyelocytes % Cancelled Myelocytes % Cancelled Promyelocytes % Cancelled Other Cells % Cancelled Nucleated RBC % Absolute Neutrophils Cancelled Absolute Lymphocytes Cancelled Absolute Monocytes Cancelled Absolute Eosinophils Cancelled Absolute Basophils Cancelled RBC Morphology Cancelled Polychromasia Cancelled Hypochromasia Cancelled Poikilocytosis Cancelled Basophilic Stippling Cancelled Anisocytosis Cancelled Microcytosis Cancelled Macrocytosis Cancelled Spherocytes Cancelled Tear Drop Cells Cancelled Ovalocytes Cancelled Stomatocytes Cancelled [place] Bodies Cancelled [place] Cells/Echinocytes Cancelled Acanthocytes (Spur) Cancelled Schistocytes Cancelled VBG pH 7.34 VBG pCO2 34 L VBG pO2 101 VBG HCO3 19 L VBG Total CO2 18 L VBG O2 Saturation 98 VBG Base Excess -7 L VBG Lactate 1.8 H Sodium Potassium Chloride Carbon Dioxide Anion Gap BUN Creatinine Est GFR (CKD-EPI 2020) Glucose Calcium Magnesium Ammonia C-Reactive Protein Triglycerides Total Cholesterol LDL Cholesterol, Calc HDL Cholesterol Vitamin B12 Procalcitonin Urine Color Urine Clarity Urine pH Ur Specific [place] Urine Protein Urine Ketones Urine Blood Urine Nitrite Urine Bilirubin Urine Urobilinogen Ur Leukocyte Esterase Urine Glucose Stool Campylobacter PCR Stool Salmonella PCR Stool Shigella PCR Shiga Toxin (PCR) Add-On Test Request 07/18/22 07/18/22 07/18/22 20:09 20:30 20:32 WBC RBC Hgb Hct MCV MCH MCHC RDW Plt Count MPV Immature Gran % Neutrophils % Band Neutrophils % Lymphocytes % Atypical Lymphs % Monocytes % Eosinophils % Basophils % Metamyelocytes % Myelocytes % Promyelocytes % Other Cells % Nucleated RBC % Absolute Neutrophils Absolute Lymphocytes Absolute Monocytes Absolute Eosinophils Absolute Basophils RBC Morphology Polychromasia Hypochromasia Poikilocytosis Basophilic Stippling Anisocytosis Microcytosis Macrocytosis Spherocytes Tear Drop Cells Ovalocytes Stomatocytes [place] Bodies [place] Cells/Echinocytes Acanthocytes (Spur) Schistocytes VBG pH VBG pCO2 VBG pO2 VBG HCO3 VBG Total CO2 VBG O2 Saturation VBG Base Excess VBG Lactate Cancelled Sodium Potassium Chloride Carbon Dioxide Anion Gap BUN Creatinine Est GFR (CKD-EPI 2020) Glucose Calcium Magnesium Ammonia C-Reactive Protein 23.63 H Triglycerides Total Cholesterol LDL Cholesterol, Calc HDL Cholesterol Vitamin B12 Procalcitonin Urine Color Yellow Urine Clarity Sl Cloudy Urine pH 5.0 Ur Specific [place] 1.020 Urine Protein Negative Urine Ketones 80 H Urine Blood Negative Urine Nitrite Negative Urine Bilirubin Small H Urine Urobilinogen 0.2 Ur Leukocyte Esterase Negative Urine Glucose Negative Stool Campylobacter PCR Stool Salmonella PCR Stool Shigella PCR Shiga Toxin (PCR) Add-On Test Request 07/18/22 07/18/22 07/19/22 20:32 20:56 05:19 WBC RBC Hgb Hct MCV MCH MCHC RDW Plt Count MPV Immature Gran % Neutrophils % Band Neutrophils % Lymphocytes % Atypical Lymphs % Monocytes % Eosinophils % Basophils % Metamyelocytes % Myelocytes % Promyelocytes % Other Cells % Nucleated RBC % Absolute Neutrophils Absolute Lymphocytes Absolute Monocytes Absolute Eosinophils Absolute Basophils RBC Morphology Polychromasia Hypochromasia Poikilocytosis Basophilic Stippling Anisocytosis Microcytosis Macrocytosis Spherocytes Tear Drop Cells Ovalocytes Stomatocytes [place] Bodies [place] Cells/Echinocytes Acanthocytes (Spur) Schistocytes VBG pH VBG pCO2 VBG pO2 VBG HCO3 VBG Total CO2 VBG O2 Saturation VBG Base Excess VBG Lactate Sodium Potassium Chloride Carbon Dioxide Anion Gap BUN Creatinine Est GFR (CKD-EPI 2020) Glucose Calcium Magnesium 1.9 Ammonia C-Reactive Protein Triglycerides 127 Total Cholesterol 196 LDL Cholesterol, Calc 121 H HDL Cholesterol 50 Vitamin B12 > 2000 H Procalcitonin 1.3 Urine Color Cancelled Urine Clarity Cancelled Urine pH Cancelled Ur Specific [place] Cancelled Urine Protein Cancelled Urine Ketones Cancelled Urine Blood Cancelled Urine Nitrite Cancelled Urine Bilirubin Cancelled Urine Urobilinogen Cancelled Ur Leukocyte Esterase Cancelled Urine Glucose Cancelled Stool Campylobacter PCR Stool Salmonella PCR Stool Shigella PCR Shiga Toxin (PCR) Add-On Test Request 07/19/22 07/19/22 07/19/22 05:19 05:19 09:10 WBC 21.08 H RBC 3.77 L Hgb 9.7 L D Hct 31.9 L MCV 85 MCH 25.7 L MCHC 30.4 L RDW 17.1 H Plt Count 105 L MPV 12.5 H Immature Gran % 0.0 Neutrophils % 76.0 Band Neutrophils % 4 Lymphocytes % 4.0 Atypical Lymphs % Monocytes % 14.0 Eosinophils % 1.0 Basophils % 0.0 Metamyelocytes % 1 Myelocytes % Promyelocytes % Other Cells % Nucleated RBC % 0.0 Absolute Neutrophils 16.86 H Absolute Lymphocytes 0.84 L Absolute Monocytes 2.95 H Absolute Eosinophils 0.21 Absolute Basophils 0.00 RBC Morphology See Below Polychromasia Present Hypochromasia Poikilocytosis Basophilic Stippling Anisocytosis Microcytosis Macrocytosis Spherocytes Tear Drop Cells Ovalocytes Stomatocytes [place] Bodies [place] Cells/Echinocytes Acanthocytes (Spur) Schistocytes VBG pH VBG pCO2 VBG pO2 VBG HCO3 VBG Total CO2 VBG O2 Saturation VBG Base Excess VBG Lactate Sodium 141 Potassium 4.4 Chloride 104 Carbon Dioxide 23.5 Anion Gap 13.5 H BUN 18 Creatinine 1.0 Est GFR (CKD-EPI 2020) 58.75 Glucose 86 Calcium 10.4 H Magnesium Ammonia < 10 L C-Reactive Protein Triglycerides Total Cholesterol LDL Cholesterol, Calc HDL Cholesterol Vitamin B12 Procalcitonin Urine Color Urine Clarity Urine pH Ur Specific [place] Urine Protein Urine Ketones Urine Blood Urine Nitrite Urine Bilirubin Urine Urobilinogen Ur Leukocyte Esterase Urine Glucose Stool Campylobacter PCR Stool Salmonella PCR Stool Shigella PCR Shiga Toxin (PCR) Add-On Test Request
--- NOTE | 2022-07-19 16:38 | PCNE_ITS ---
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 She was admitted to [facility] 4 weeks ago for weakness and then admitted to [facility]& for BERENICE. Pt seen at the [facility]& adm by Dr. Velazquez for Palliative Consult. Her reports that initially she did well, able to ambulate to the bathroom and in the hallways but over the last 2 weeks she became increasingly weak and a few days ago unable to get out of bed. Evaluation during this last admission revealed possible spesis, possible hydronephrosis (perhaps due to malignant nodules) and worsening respiratory status. Her R illiac artery also noted to be occluded. She has also had some delirium and off At this point patient told and clinical staff that she wanted to stop IV hydration and antibiotics and any further evaluation or curative treatment. By report, and patient met with Hospice intake nurse earlier today and family requested hospice admission. As per : hospice will be unable to provide them with a hospital bed until Monday, so he assumes she niharika go home Monday and be admitted to hospice. Patient's daughter is coming up from [place] today to help out. There are also 2 local friends who can help care for her. recently had both hips replaced. He thinks he can handle the transferring and the rolling needed to do toileting changes. A Pop has been placed. Symptoms of concern: Pt denies any concerns or symptoms (including Pain, SOB, anxiety), but she seems confused and a bit sedated. ROS as per : Pain: None Dyspnea: Only when sitting up or being repositioned or transferred Anxiety: She was very anxious this morning. Apologizing for being so much trouble, very upset. says he asked for her to get something (BZD) and this worked very well. Confusion: he reports she has been mildly confused at times. Assessment and Plan Assessment and plan (1) Non-small cell carcinoma of lung: Status: Chronic Qualifiers: Laterality: unspecified laterality Qualified Code(s): C34.90 - Malignant neoplasm of unspecified part of unspecified bronchus or lung (2) Palliative care encounter: Status: Acute (3) End of life care: Status: Acute Assessment and plan: In summary, 77-year-old woman with metastatic non-small cell carcinoma now with 4 to 6 weeks rapid decline in functioning (inability to walk, increasing weakness, decreasing appetite). Admitted now for further weakness with possible sepsis. Patient is requesting that she no longer receive IV hydration or IV antibiotics. She and her met with hospice today and she has requested admission to hospice. This afternoon she was transition to comfort measures only in the hospital. Medications not related to comfort care were discontinued. Hospice team met with her and the plan is for her to go home on hospice in the next few days. spoke with patient's biological daughter and she is planning to come up within 24 hours to help out. Symptom myrick, mild delirium causing anxiety seems to be the major symptom. There is some dyspnea whenever she is transferred or repositioned. Nursing reports that lorazepam was given earlier today with excellent effect on anxiety. Recommend: -Consider scheduling low-dose lorazepam. -Consider switching to IV/SQ/IM medications as nursing is concerned about her ability to take oral medication going forward. -Consider as needed inhaled bronchodilators if needed for wheezing or rhonchi. Right now her breathing is calm and not needed. -Consider low-dose IM/SQ Haldol to help with anxiety and delirium if needed. -Palliative care team will check in on patient daily until she is transferred home. Please call us with any additional questions. Case discussed with Dr. Ev Velazquez. [facility] All Active Problems End of life care (Acute) Palliative care encounter (Acute) Discharge planning issues (Acute) DVT prophylaxis (Acute) Leucocytosis (Acute) Thrombocytopenia (Chronic) Metabolic acidosis (Acute) Dehydration (Acute) Lesion of urinary bladder (Acute) Liver lesion (Acute) Encephalopathy acute (Acute) Diarrhea (Acute) Back pain (Acute) Nodule on liver (Acute) Bladder mass (Acute) Elevated troponin (Acute) Carotid artery stenosis (Chronic) right 15-49% in 2019; known left ICA occlusion Hyperlipidemia (Chronic) Peripheral vascular disease (Chronic) s/p femoral stent at [facility] Tubular adenoma (Chronic 03/07/16) Colonoscopy 03/07/16 - 5 yr plan; colonoscopy 02/2022 at [facility]; tubular adenoma and tubulovillous adenomas Sciatica (Acute) Atherosclerotic cardiovascular disease (Acute) cardiac cath in 2020 with nonobstructive disease Left lower lobe pulmonary nodule (Acute) Generalized weakness (Acute) Dizziness (Acute) Non-small cell carcinoma of lung (Chronic ~05/2019) Biopsied at [facility]; followed by [facility] pulm and [facility] oncology. 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 October 05, 2018 while in-patient. Has not smoked since. 03/20/19 - Admits to 1 cigaret 1-2 per week. 12/19/19 - smoking 3-4 /day -01/2020 - QUIT again 03/16/21 - Reports NONE since 04/2020 Hx of non-ST elevation myocardial infarction (NSTEMI) (2019) in the setting of pneumothorax Pneumothorax on left Initial 01/02/20 LEFT Repeat spont. LEFT pneumothorax - 05/01/20 Repeat spont. pneumothorax (#3) LEFT 01/2021 Polyp of colon Primary malignant neoplasm of cervix s/p hyst Ruptured emphysematous bleb of lung Squamous cell carcinoma of skin UPJ obstruction, acquired chronic bilateral hydronephrosis on CT Surgical History Colonoscopy - [facility] (03/07/16) Dr Parisi excision CIS R buttock 2009 History of discectomy History of excision of mass History of lung biopsy (~2015) S/P hysterectomy fibroid uterus ovaries remain Status post breast biopsy Status post carpal tunnel release Status post cholecystectomy Family History Mother , 65 Cancer Sister , 65 Breast cancer Father , 75 Heart disease Sister Cancer Sister No problems noted. Brother Bone cancer Lung cancer Daughter No problems noted. Daughter No problems noted. Son No problems noted. Brother No problems noted. Maternal Grandfather No problems noted. Paternal Grandfather No problems noted. Maternal Grandmother No problems noted. Paternal Grandmother No problems noted. Social History Smoking/Tobacco Use Status: Former Tobacco Use tobacco type: cigarettes Quit Date: 10/05/18 Tobacco: How many years used: 55 Second Hand Exposure: Yes Counseling given: patient declined Smoking risk assessment performed?: Yes Alcohol Intake: never Substance use type: does not use Details: Quit smoking while in-patient. Caregiver/Support person: No Household members: spouse Housing: house Communication Needs: None Do you need help understanding health information?: Never Pets and animals: No Sexually active: No Do you think of yourself as: straight/heterosexual Current gender identity: female What is your relationship status?: How often do you talk on the phone with friends or family?: once per week Do you belong to any clubs or organized social groups?: no Panel score (0-1 are the most socially isolated patients): 1 What type of physical activity do you participate in: walking Duration: < 15 minutes/day Frequency: daily Special sonia needs: No Seatbelt use: always Drive intox or ride w/intox wedding transportation driver: No Do you feel safe at home: Yes Do you feel safe in your relationship?: Yes Results Last Vital Signs Temp 37.0 C 07/19/22 08:10 Pulse 109 H 07/19/22 08:10 Resp 19 07/19/22 08:10 BP 113/66 07/19/22 08:10 Pulse Ox 96 07/19/22 09:28 Labs Result diagrams: 07/19/22 05:19 07/19/22 05:19 Labs: Laboratory Results - last 24 hr 07/17/22 07/17/22 07/18/22 19:32 23:30 07:52 WBC RBC Hgb Hct MCV MCH MCHC RDW Plt Count MPV Immature Gran % Neutrophils % Band Neutrophils % Lymphocytes % Atypical Lymphs % Monocytes % Eosinophils % Basophils % Metamyelocytes % Myelocytes % Promyelocytes % Other Cells % Nucleated RBC % Absolute Neutrophils Absolute Lymphocytes Absolute Monocytes Absolute Eosinophils Absolute Basophils RBC Morphology Polychromasia Hypochromasia Poikilocytosis Basophilic Stippling Anisocytosis Microcytosis Macrocytosis Spherocytes Tear Drop Cells Ovalocytes Stomatocytes Tyrone-Coleta Bodies Genaro Cells/Echinocytes Acanthocytes (Spur) Schistocytes VBG pH VBG pCO2 VBG pO2 VBG HCO3 VBG Total CO2 VBG O2 Saturation VBG Base Excess VBG Lactate Sodium Potassium Chloride Carbon Dioxide Anion Gap BUN Creatinine Est GFR (CKD-EPI 2020) Glucose Calcium Magnesium Ammonia C-Reactive Protein Triglycerides Total Cholesterol LDL Cholesterol, Calc HDL Cholesterol Vitamin B12 Procalcitonin Urine Color Cancelled Urine Clarity Cancelled Urine pH Cancelled Ur Specific Ehrhardt Cancelled Urine Protein Cancelled Urine Ketones Cancelled Urine Blood Cancelled Urine Nitrite Cancelled Urine Bilirubin Cancelled Urine Urobilinogen Cancelled Ur Leukocyte Esterase Cancelled Urine Glucose Cancelled Stool Campylobacter PCR Negative Stool Salmonella PCR Negative Stool Shigella PCR Negative Shiga Toxin (PCR) Negative Add-On Test Request Cancelled 07/18/22 07/18/22 07/18/22 07:52 19:18 19:18 WBC RBC Hgb Hct MCV MCH MCHC RDW Plt Count MPV Immature Gran % Cancelled Neutrophils % Cancelled Band Neutrophils % Cancelled Lymphocytes % Cancelled Atypical Lymphs % Cancelled Monocytes % Cancelled Eosinophils % Cancelled Basophils % Cancelled Metamyelocytes % Cancelled Myelocytes % Cancelled Promyelocytes % Cancelled Other Cells % Cancelled Nucleated RBC % Absolute Neutrophils Cancelled Absolute Lymphocytes Cancelled Absolute Monocytes Cancelled Absolute Eosinophils Cancelled Absolute Basophils Cancelled RBC Morphology Cancelled Polychromasia Cancelled Hypochromasia Cancelled Poikilocytosis Cancelled Basophilic Stippling Cancelled Anisocytosis Cancelled Microcytosis Cancelled Macrocytosis Cancelled Spherocytes Cancelled Tear Drop Cells Cancelled Ovalocytes Cancelled Stomatocytes Cancelled Hansen-Coleta Bodies Cancelled Genaro Cells/Echinocytes Cancelled Acanthocytes (Spur) Cancelled Schistocytes Cancelled VBG pH 7.34 VBG pCO2 34 L VBG pO2 101 VBG HCO3 19 L VBG Total CO2 18 L VBG O2 Saturation 98 VBG Base Excess -7 L VBG Lactate 1.8 H Sodium Potassium Chloride Carbon Dioxide Anion Gap BUN Creatinine Est GFR (CKD-EPI 2020) Glucose Calcium Magnesium Ammonia C-Reactive Protein Triglycerides Total Cholesterol LDL Cholesterol, Calc HDL Cholesterol Vitamin B12 Procalcitonin Urine Color Urine Clarity Urine pH Ur Specific Ehrhardt Urine Protein Urine Ketones Urine Blood Urine Nitrite Urine Bilirubin Urine Urobilinogen Ur Leukocyte Esterase Urine Glucose Stool Campylobacter PCR Stool Salmonella PCR Stool Shigella PCR Shiga Toxin (PCR) Add-On Test Request 07/18/22 07/18/22 07/18/22 20:09 20:30 20:32 WBC RBC Hgb Hct MCV MCH MCHC RDW Plt Count MPV Immature Gran % Neutrophils % Band Neutrophils % Lymphocytes % Atypical Lymphs % Monocytes % Eosinophils % Basophils % Metamyelocytes % Myelocytes % Promyelocytes % Other Cells % Nucleated RBC % Absolute Neutrophils Absolute Lymphocytes Absolute Monocytes Absolute Eosinophils Absolute Basophils RBC Morphology Polychromasia Hypochromasia Poikilocytosis Basophilic Stippling Anisocytosis Microcytosis Macrocytosis Spherocytes Tear Drop Cells Ovalocytes Stomatocytes Hansen-Coleta Bodies [place] Cells/Echinocytes Acanthocytes (Spur) Schistocytes VBG pH VBG pCO2 VBG pO2 VBG HCO3 VBG Total CO2 VBG O2 Saturation VBG Base Excess VBG Lactate Cancelled Sodium Potassium Chloride Carbon Dioxide Anion Gap BUN Creatinine Est GFR (CKD-EPI 2020) Glucose Calcium Magnesium Ammonia C-Reactive Protein 23.63 H Triglycerides Total Cholesterol LDL Cholesterol, Calc HDL Cholesterol Vitamin B12 Procalcitonin Urine Color Yellow Urine Clarity Sl Cloudy Urine pH 5.0 Ur Specific Ehrhardt 1.020 Urine Protein Negative Urine Ketones 80 H Urine Blood Negative Urine Nitrite Negative Urine Bilirubin Small H Urine Urobilinogen 0.2 Ur Leukocyte Esterase Negative Urine Glucose Negative Stool Campylobacter PCR Stool Salmonella PCR Stool Shigella PCR Shiga Toxin (PCR) Add-On Test Request 07/18/22 07/18/22 07/19/22 20:32 20:56 05:19 WBC RBC Hgb Hct MCV MCH MCHC RDW Plt Count MPV Immature Gran % Neutrophils % Band Neutrophils % Lymphocytes % Atypical Lymphs % Monocytes % Eosinophils % Basophils % Metamyelocytes % Myelocytes % Promyelocytes % Other Cells % Nucleated RBC % Absolute Neutrophils Absolute Lymphocytes Absolute Monocytes Absolute Eosinophils Absolute Basophils RBC Morphology Polychromasia Hypochromasia Poikilocytosis Basophilic Stippling Anisocytosis Microcytosis Macrocytosis Spherocytes Tear Drop Cells Ovalocytes Stomatocytes Hansen-Coleta Bodies Genaro Cells/Echinocytes Acanthocytes (Spur) Schistocytes VBG pH VBG pCO2 VBG pO2 VBG HCO3 VBG Total CO2 VBG O2 Saturation VBG Base Excess VBG Lactate Sodium Potassium Chloride Carbon Dioxide Anion Gap BUN Creatinine Est GFR (CKD-EPI 2020) Glucose Calcium Magnesium 1.9 Ammonia C-Reactive Protein Triglycerides 127 Total Cholesterol 196 LDL Cholesterol, Calc 121 H HDL Cholesterol 50 Vitamin B12 > 2000 H Procalcitonin 1.3 Urine Color Cancelled Urine Clarity Cancelled Urine pH Cancelled Ur Specific Ehrhardt Cancelled Urine Protein Cancelled Urine Ketones Cancelled Urine Blood Cancelled Urine Nitrite Cancelled Urine Bilirubin Cancelled Urine Urobilinogen Cancelled Ur Leukocyte Esterase Cancelled Urine Glucose Cancelled Stool Campylobacter PCR Stool Salmonella PCR Stool Shigella PCR Shiga Toxin (PCR) Add-On Test Request 07/19/22 07/19/22 07/19/22 05:19 05:19 09:10 WBC 21.08 H RBC 3.77 L Hgb 9.7 L D Hct 31.9 L MCV 85 MCH 25.7 L MCHC 30.4 L RDW 17.1 H Plt Count 105 L MPV 12.5 H Immature Gran % 0.0 Neutrophils % 76.0 Band Neutrophils % 4 Lymphocytes % 4.0 Atypical Lymphs % Monocytes % 14.0 Eosinophils % 1.0 Basophils % 0.0 Metamyelocytes % 1 Myelocytes % Promyelocytes % Other Cells % Nucleated RBC % 0.0 Absolute Neutrophils 16.86 H Absolute Lymphocytes 0.84 L Absolute Monocytes 2.95 H Absolute Eosinophils 0.21 Absolute Basophils 0.00 RBC Morphology See Below Polychromasia Present Hypochromasia Poikilocytosis Basophilic Stippling Anisocytosis Microcytosis Macrocytosis Spherocytes Tear Drop Cells Ovalocytes Stomatocytes Hansen-Coleta Bodies [place] Cells/Echinocytes Acanthocytes (Spur) Schistocytes VBG pH VBG pCO2 VBG pO2 VBG HCO3 VBG Total CO2 VBG O2 Saturation VBG Base Excess VBG Lactate Sodium 141 Potassium 4.4 Chloride 104 Carbon Dioxide 23.5 Anion Gap 13.5 H BUN 18 Creatinine 1.0 Est GFR (CKD-EPI 2020) 58.75 Glucose 86 Calcium 10.4 H Magnesium Ammonia < 10 L C-Reactive Protein Triglycerides Total Cholesterol LDL Cholesterol, Calc HDL Cholesterol Vitamin B12 Procalcitonin Urine Color Urine Clarity Urine pH Ur Specific Ehrhardt Urine Protein Urine Ketones Urine Blood Urine Nitrite Urine Bilirubin Urine Urobilinogen Ur Leukocyte Esterase Urine Glucose Stool Campylobacter PCR Stool Salmonella PCR Stool Shigella PCR Shiga Toxin (PCR) Add-On Test Request
--- NOTE | 2022-07-20 08:38 | CMPROGNOTE_ITS ---
- If Service Date Differs Date of service: 07/20/22 Time of Service: 08:38 Care Management Progress Note S/O:Lianna will be discharging home on hospice later today. The hospital bed, oxygen and overbed table have been delivered by [facility] and [facility] will do the hospice admission tomorrow.. A: Lianna is a 77 year old woman admitted on 07/18/22 with Diarrhea and demand ischemia P:Lianna will be discharged home today and admitted to hospice tomorrow. She will be transported by [facility] coordinated by [facility]. The Hospice team will address her comfort and care needs and follow her in the community.
[2022-07-20] MEDS: Pantoprazole 40 MG TABCR PO (09:53)
--- NOTE | 2022-07-20 10:55 | DSE_ITS ---
Date of service: 07/20/22 Time of Service: 10:55 DS: Diagnosis Discharge Diagnosis (1) Non-small cell carcinoma of lung: Status: Chronic (2) Palliative care encounter: Status: Acute (3) End of life care: Status: Acute Discharge Plan Disposition Patient Disposition: Hospice Home Condition: Deteriorating Discharge Details Reason For Visit: Diarrhea,Demand Ischemia Admit Date/Time: 07/18/22 16:55 Admit Provider: Kurt Guzman Attending Provider: Kurt Guzman Primary Care Provider: Candelaria Pereira Hospital Course Hospital Course: This is a 77 female with COPD, CAD, currently at [facility] following admission for COPD exacerbation and UTI. Here with 1-2 days of nausea and diarrhea. No abdominal pain, fever, or known similar illness at facility. In ER initial findings of note for absence of fever, pulse approx 130 (sinus tach), white count 24 (on Prednisone 40), troponin 1500. EKG 1 and 2 showed no obvious ischemic changes but were poor quality; EKG 3 is WNL. Case [place] [facility], felt this was demand ischemia (presumably from the tachycardia?). Patient given ASA, Zofran, 5 mg Lopressor I and NS bolus.She was admitted to hospitalist services for further evaluation which revealed possible sepsis, possible hydronephrosis (perhaps due to malignant nodules) and worsening respiratory status. Her R illiac artery also noted to be occluded. After discussion of findings with patient, patient told and clinical staff that she wanted to stop IV hydration and antibiotics and any further evaluation or curative treatment. Patient and decided on hospice care at home. DME was secured and arrangements made with the help of case management. Patient is being transported to home for end-of-life care by ground EMS. Discharge discussed with Dr. Solo Home Meds and New Rx's Prescriptions: New lorazepam 1 mg Tablet 0.5 mg PO Q4H PRN PRN (Reason: Anxiety) Qty: 10 0RF morphine concentrate 10 mg/0.5 mL syringe 5 mg PO Q6H PRNQty: 1 0RF morphine concentrate 100 mg/5 mL (20 mg/mL) solution 5 mg PO Q6H PRNQty: 30 0RF Continued ipratropium-albuterol 0.5 mg-3 mg(2.5 mg base)/3 mL solution for nebulization 3 ml inhalation QID PRN (Reason: wheezing/COPD J43.2) Qty: 90 3RF albuterol sulfate [ProAir HFA] 90 mcg/actuation HFA aerosol inhaler 2 puff Inhalation Q4H PRN Qty: 2 4RF Breztri Aerosphere 160-9-4.8 mcg/actuation HFA aerosol inhaler See Rx Instructions .ROUTE .COMPLEX Qty: 10.7 8RF Dose Instruction: INHALE TWO PUFFS BY MOUTH TWICE A DAY FOR COPD Rx Instructions: INHALE TWO PUFFS BY MOUTH TWICE A DAY FOR COPD acetaminophen [Tylenol] 325 mg tablet 325 mg PO DAILY PRN prednisone 20 mg Tablet 40 mg PO DAILY Qty: 0 0RF magnesium hydroxide [Milk of Magnesia] 400 mg/5 mL Suspension 30 ml PO HS bisacodyl 10 mg Suppository 10 mg MI DAILY PRN polyethylene glycol 3350 [Miralax] 17 gram/dose Powder 17 g PO PRN PRN lidocaine 5 % Adhesive Patch,Medicated 2 patch topical HS Qty: 0 0RF No Action (DME) Space Chamber Plus 1 EACH spacer 1 ea Miscellaneous PRN Qty: 1 (DME) Oxygen Tank See Rx Instructions .ROUTE Qty: 1 0RF Rx Instructions: As directed Discharge Instructions Instructions: Hospice Care (GEN) Stand Alone Forms: Nursing Discharge Form Referrals: Candelaria Pereira MD [Primary Care Provider] - (Follow up per Hospice ) Activity:: Activity as Tolerated Equipment/Supplies:: hospital bed, hospice dme Diet:: As Tolerated Discharge Orders Discharge Orders: Discharge Order (Routine); Ordered 07/20/22 Ordered By: Eloisa Mooney Discharge Data Discharge Date/Time-TO BE ENTERED AT DEPARTURE: 07/20/22 15:30 DS: Summary Time Spent with Patient providing and/or coordinating discharge services: Less than 30 minutes Status at Discharge Functional status at discharge: bed bound Overall status at discharge: patient is not back to baseline Mental Status: mental status grossly normal Speech and Movement: speech and movement normal Mood: congruent mood Affect: normal affect Exam Const General: cooperative and no acute distress Orientation: alert, awake and oriented x3 HENMT Head: normal to inspection, normocephalic and atraumatic Mouth: moist mucous membranes abnormal (Dry) Eyes General: appearance normal, both eyes and all related structures Conjunctivae: conjunctivae normal Neck Neck: normal visual inspection, full ROM and supple Resp Effort & Inspection: normal respiratory effort and able to speak in complete sentences Auscultation: diminished lung sounds bilaterally in the lower lung summers Cardio Rhythm: regular rhythm GI Inspection: normal to inspection Palpation: soft and nontender Auscultation: normal bowel sounds Back/Spine/Pelvis Back: No back tenderness Skin General skin exam: no rashes or lesions noted Neuro General: patient alert, patient awake and moves all extremities Cognition: normal cognition Speech: speech normal Motor: muscle tone normal throughout Sensory Exam: no sensory deficits noted Extrem General: normal to inspection, full ROM, capillary refill normal, no pedal edema and no calf tenderness Psych Appearance: grossly normal Mental Status: mental status grossly normal Speech and Movement: speech and movement normal Mood: congruent mood Affect: normal affect DS: Data Vitals/I&O Vitals and I&O: Vital Signs Temperature 37.0 C 07/19/22 08:10 Temperature Source Tympanic 07/19/22 08:10 Pulse 109 H 07/19/22 08:10 Pulse Rhythm Regular 07/19/22 04:46 Pulse 96 H 07/17/22 22:50 Respiratory Rate 19 07/19/22 08:10 Respiratory Effort Non-Labored 07/19/22 04:46 Respiratory Depth Normal 07/19/22 04:46 Respiratory Pattern Normal 07/19/22 04:46 Blood Pressure 113/66 07/19/22 08:10 Blood Pressure Mean 75 07/17/22 22:31 Pulse Oximetry 96 07/19/22 09:28 Oxygen Delivery Method OxyMask 07/19/22 09:28 Oxygen Flow Rate 3 07/19/22 09:28 Pain Level 0 07/19/22 08:10 Comment 07/18/22 12:00 Intake & Output 07/19/22 07/19/22 07/20/22 11:59 23:59 11:59 Intake Total 486.25 / 486.25 Output Total 400 / 650 250 / 650 750 / 750 Balance 86.25 / -163.75 -250 / -163.75 -735 / -735 Intake: IV 386.25 / 386.25 Oral 100 / 100 Output: Urine 400 / 650 250 / 650 750 / 750 Other: Urine Color Yellow Yellow Yellow Urine Appearance Clear Clear Clear Urine Odor Normal Comment Patient grossly incontinent of urine at this time. Voiding Methods Bedpan Diaper Indwelling Catheter Incontinent Data Completed and Pending Labs on day of discharge: 07/18/22 20:30 Urine - Cath Straight Urine Culture - Pending Preliminary micro results at discharge 07/18/22 21:32 Blood Culture - Preliminary Blood NO GROWTH 24 HOURS 07/18/22 20:32 Blood Culture - Preliminary Blood NO GROWTH 24 HOURS 07/18/22 20:30 Urine Culture - Pending Urine - Cath Straight [facility] All Active Problems End of life care (Acute) Palliative care encounter (Acute) Discharge planning issues (Acute) DVT prophylaxis (Acute) Leucocytosis (Acute) Thrombocytopenia (Chronic) Metabolic acidosis (Acute) Dehydration (Acute) Lesion of urinary bladder (Acute) Liver lesion (Acute) Encephalopathy acute (Acute) Diarrhea (Acute) Back pain (Acute) Nodule on liver (Acute) Bladder mass (Acute) Elevated troponin (Acute) Carotid artery stenosis (Chronic) right 15-49% in 2019; known left ICA occlusion Hyperlipidemia (Chronic) Peripheral vascular disease (Chronic) s/[place] femoral [place] [facility] [place]ular adenoma (Chronic 03/07/16) Colonoscopy 03/07/16 - 5 yr plan; colonoscopy 02[place]2022 [place] [facility] tubular adenoma and tubulovillous adenomas Sciatica (Acute) Atherosclerotic cardiovascular disease (Acute) cardiac cath in 2020 with nonobstructive disease Left lower lobe pulmonary nodule (Acute) Generalized weakness (Acute) Dizziness (Acute) Non-small cell carcinoma of lung (Chronic ~05/2019) Biopsied at [facility]; followed by [facility] pulm and [facility] [place]. 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 October 05, 2018 while in-patient. Has not smoked since. 03/20/19 - Admits to 1 cigaret 1-2 per week. 12/19/19 - smoking 3-4 /day -01/2020 - QUIT again 03/16/21 - Reports NONE since 04/2020 Hx of non-ST elevation myocardial infarction (NSTEMI) (2019) in the setting of pneumothorax Pneumothorax on left Initial 01/02/20 LEFT Repeat spont. LEFT pneumothorax - 05/01/20 Repeat spont. pneumothorax (#3) LEFT 01/2021 Polyp of colon Primary malignant neoplasm of cervix s/p hyst Ruptured emphysematous bleb of lung Squamous cell carcinoma of skin UPJ obstruction, acquired chronic bilateral hydronephrosis on CT Surgical History [place] [facility] Dr Parisi excision CIS R buttock 2008 History of discectomy History of excision of mass History of lung biopsy (~2015) S/P hysterectomy fibroid uterus ovaries remain Status post breast biopsy Status post carpal tunnel release Status post cholecystectomy Family History Mother , 65 Cancer Sister , 65 Breast cancer Father , 75 Heart disease Sister Cancer Sister No problems noted. Brother Bone cancer Lung cancer Daughter No problems noted. Daughter No problems noted. Son No problems noted. Brother No problems noted. Maternal Grandfather No problems noted. Paternal Grandfather No problems noted. Maternal Grandmother No problems noted. Paternal Grandmother No problems noted. Social History Smoking/Tobacco Use Status: Former Tobacco Use tobacco type: cigarettes Quit Date: 10/05/18 Tobacco: How many years used: 57 Second Hand Exposure: Yes Counseling given: patient declined Smoking risk assessment performed?: Yes Alcohol Intake: never Substance use type: does not use Details: Quit smoking while in-patient. Caregiver/Support person: No Household members: spouse Housing: house Communication Needs: None Do you need help understanding health information?: Never Pets and animals: No Sexually active: No Do you think of yourself as: straight/heterosexual Current gender identity: female What is your relationship status?: How often do you talk on the phone with friends or family?: once per week Do you belong to any clubs or organized social groups?: no Panel score (0-1 are the most socially isolated patients): 1 What type of physical activity do you participate in: walking Duration: < 15 minutes/day Frequency: daily Special sonia needs: No Seatbelt use: always Drive intox or ride w/intox public transit bus driver: No Do you feel safe at home: Yes Do you feel safe in your relationship?: Yes
--- NOTE | 2022-07-20 16:38 | PDOC.CMDIS ---
- If Service Date Differs Date of service: 07/20/22 Time of Service: 16:38 LACE Index Scoring Tool - Questions: Length of Stay (in days): 2 Acuity (Admit via E.D.?): Yes Comorbidities: PVD, Chronic Pulmonary Disease, Metastatic Solid Tumor E.D. Visits: 5 - Answers: Total Score: 14 Risk of Readmission: High Risk Care Management Discharge Reason for Hospitalization: Diarrhea,elevated troponins Discharge Plan: Lianna will be discharged home today and admitted to hospice tomorrow. She will be transported by [employer] coordinated by CM. The Hospice team will address her comfort and care needs and follow her in the community. Patient/Family Education Needs: Review of hospice services, limitations, pain and comfort management.
--- NOTE | 2022-07-20 17:04 | CHAPLAIN ---
I visited with Lianna and Mr. Reynolds this morning. She was hoping to be discharged soon, and ended up being discharged this afternoon after the hospital bed was delivered. Lianna will be admitted to hospice tomorrow. I let her know that Rev. Della Rico will be available to her as the retail team leader and encouraged her to request a visit from
--- NOTE | 2022-07-25 14:42 | NUR.NOTE ---
Nursing Note: Access pt chart to confirm for [facility] that they were the ones that brought the patient to the ED for a facesheet.
== END 2022-07-20 15:30 | disposition hospice, inpatient (51) | DRG 872 ==
LOC: ER 23:26 → MS 07-18 00:16
PROVIDERS: Internal Medicine; Admitting Provider General Practice; Emergency Provider Physician Assistant; PCP Family Medicine; Visit Provider General Practice
DX: A41.9 Sepsis, unspecified organism (principal); G93.40 Encephalopathy, unspecified; I24.8 Other forms of acute ischemic heart disease; Z68.1 Body mass index [BMI] 19.9 or less, adult; C78.7 Secondary malignant neoplasm of liver and intrahepatic bile duct; C78.2 Secondary malignant neoplasm of pleura; C78.6 Secondary malignant neoplasm of retroperitoneum and peritoneum; I74.5 Embolism and thrombosis of iliac artery; F05 Delirium due to known physiological condition; N13.39 Other hydronephrosis; C34.32 Malignant neoplasm of lower lobe, left bronchus or lung; K52.9 Noninfective gastroenteritis and colitis, unspecified; D72.829 Elevated white blood cell count, unspecified; E86.0 Dehydration; D69.6 Thrombocytopenia, unspecified; I25.10 Atherosclerotic heart disease of native coronary artery without angina pectoris; J44.9 Chronic obstructive pulmonary disease, unspecified; N32.89 Other specified disorders of bladder; I65.23 Occlusion and stenosis of bilateral carotid arteries; E78.5 Hyperlipidemia, unspecified; I73.9 Peripheral vascular disease, unspecified; R53.1 Weakness; R63.4 Abnormal weight loss; I10 Essential (primary) hypertension; Z87.891 Personal history of nicotine dependence; I25.2 Old myocardial infarction; K57.30 Diverticulosis of large intestine without perforation or abscess without bleeding; Z66 Do not resuscitate; Z51.5 Encounter for palliative care; R62.7 Adult failure to thrive; R00.0 Tachycardia, unspecified; Z99.81 Dependence on supplemental oxygen
CPT/HCPCS: 36415; 71275; 74177; 80048; 80053; 80061; 82805; 84145; 85027; 87040; 87081; 87493; 87505; 87637; 93005; 94640; 96361; 96374; 96375; 99291; 70450; 71045; 81003; 82140; 82607; 83605; 83735; 83880; 84484; 85007; 85025; 86140; 87086; 93010; 94664; 99219; 99231; 99233; 99238; G0378; J2405; J3490; J7512